=== PATIENT | male | born 1975 | race Caucasian/White ===

== ENCOUNTER 2020-12-29 10:57 | Emergency (ER) | payer MEDICARE, OTHER ==
[2020-12-29 11:09] VITALS: TEMP 97.6
[2020-12-29] MEDS ORDERED: LORazepam 2 MG/ML INJ IV STA ×2 (11:16→12:06)
--- NOTE | 2020-12-29 11:32 | ED ---
General Adult HPI - General Chief complaint: Shortness of Breath Stated complaint: SUREKHA, anxiety Time Seen by Provider: 12/29/20 11:05 Source: patient, family, RN notes reviewed, old records reviewed Mode of arrival: wheelchair - History of Present Illness Initial comments: This is a 45-year-old male who presents emergency Department complaining that he is having an anxiety attack. Patient states he feels like he can't breathe but he knows secondary to having panic attacks. Patient states this started about a year ago and he still going to [facility] but he states there is sick of seeing him so he came here today. Patient doesn't know why he is having panic attacks but he states when he gets like this he feels like he can't breathe site doesn't know what else to do. Patient denies chest pain. Patient denies any recent fever chills or cough per patient denies headache patient denies numbness weakness. Patient denies abdominal pain patient denies nausea vomiting diarrhea. - Related Data Home Medications Medication Instructions Recorded Confirmed Albuterol Inhaler (Mhu) [Ventolin 1 puff INHALATION RT-Q6H PRN 10/31/15 11/04/15 Hfa Inhaler] Doxycycline Hyclate 100 mg PO BID 10/31/15 11/04/15 Hydrocodone/Acetaminophen [[place] 1 tab PO TID 10/31/15 11/04/15 7.5-325] Insulin Lispro [humaLOG] See Protocol SQ ACHS 10/31/15 11/04/15 Methylphenidate HCl [Ritalin LA] 30 mg PO TID 10/31/15 11/04/15 Sulfamethoxazole/Trimethoprim 1 tab PO Q12H 10/31/15 11/04/15 [Bactrim DS 800-160 mg] Previous Rx's Medication Instructions Recorded Hydrocodone/Acetaminophen [Conway 1 - 2 each PO Q6HR PRN #60 tab 11/02/15 5-325] Allergies Allergy/AdvReac Type Severity Reaction Status Date / Time metals Allergy Rash/Hives, Uncoded 12/29/20 11:09 swelling Review of Systems ROS Statement: Those systems with pertinent positive or pertinent negative responses have been documented in the HPI. ROS Other: All systems not noted in ROS Statement are negative. Past Medical History Past Medical History: Asthma, Diabetes Mellitus, GERD/Reflux, Hypertension, Skin Disorder Additional Past Medical History / Comment(s): hx spina bifida, spinal stenosis, pancreatitis. scrotal wound (to start on antibiotics 10/31/15), migraines, uses wheelchair-can ambulate but does fall at times History of Any Multi-Drug Resistant Organisms: None Reported Past Surgical History: Back Surgery Additional Past Surgical History / Comment(s): back surgery- 3 rods, 4 screws Past Anesthesia/Blood Transfusion Reactions: No Reported Reaction Past Psychological History: ADD/ADHD, Bipolar Past Alcohol Use History: None Reported Past Drug Use History: None Reported - Past Family History Mother Family Medical History: Cancer Father Family Medical History: Cancer General Exam - General Exam Comments Initial Comments: GENERAL: Patient is well-developed and well-nourished. Patient is nontoxic and well- hydrated and is in mild distress. ENT: Neck is soft and supple. No significant lymphadenopathy is noted. Oropharynx is clear. Moist mucous membranes. Neck has full range of motion without eliciting any pain. EYES: The sclera were anicteric and conjunctiva were pink and moist. Extraocular movements were intact and pupils were equal round and reactive to light. Eyelids were unremarkable. PULMONARY: Unlabored respirations. Good breath sounds bilaterally. No audible rales rhon chi or wheezing was noted. CARDIOVASCULAR: There is a regular rate and rhythm without any murmurs gallops or rubs. ABDOMEN: Soft and nontender with normal bowel sounds. SKIN: Skin is clear with no lesions or rashes and otherwise unremarkable. NEUROLOGIC: Patient is alert and oriented x3. Cranial nerves II through XII are grossly intact. Motor and sensory are also intact. Normal speech, volume and content. Symmetrical smile. MUSCULOSKELETAL: Normal extremities with adequate strength and full range of motion. LYMPHATICS: No significant lymphadenopathy is noted PSYCHIATRIC: Patient is extremely anxious and hyperventilating. Course Vital Signs 12/29/20 12/29/20 12/29/20 11:03 11:38 12:16 Temperature 97.6 F Pulse Rate 66 62 59 L Respiratory 28 H 30 H 28 H Rate Blood Pressure 147/112 131/112 O2 Sat by Pulse 93 L 94 L 93 L Oximetry 12/29/20 12/29/20 12:44 13:32 Temperature Pulse Rate 67 Respiratory 30 H 20 Rate Blood Pressure 110/97 O2 Sat by Pulse 92 L Oximetry Medical Decision Making - Medical Decision Making EKG shows sinus rhythm with frequent PVCs at 80 bpm NM interval 240 QRS is 86 QT interval 400 QTC is 44. Patient's received 2 mg of Ativan in the emergency department doing much better he feels much close to his baseline. Patient's chest x-ray shows no acute abnormality. Disposition Clinical Impression: Anxiety Disposition: HOME SELF-CARE Instructions (If sedation given, give patient instructions): Anxiety (ED) Is patient prescribed a controlled substance at d/c from ED?: No Referrals: Kunal Hoffmann MD [STAFF PHYSICIAN] - 1-2 days Time of Disposition: 14:00
--- NOTE | 2020-12-29 13:04 | XR ---
EXAMINATION TYPE: XR chest 1V portable DATE OF EXAM: 12/29/2020 COMPARISON: Chest x-ray 12/23/2009 HISTORY: Shortness of breath TECHNIQUE: Single frontal view of the chest is obtained. FINDINGS: There is no focal air space opacity, pleural effusion, or pneumothorax seen. The cardiac silhouette size is large, patient is rotated which may accentuate the appearance. The osseous struc tures are intact. IMPRESSION: Cardiomegaly, rotated exam, follow-up as indicated
[2020-12-29 13:32] VITALS: PULSE 67; RESP 20
[2020-12-29 14:08] VITALS: BP 128/78
== END 2020-12-29 14:00 | disposition home or self-care (01) ==
LOC: EC 10:57
DX: F41.9 Anxiety disorder, unspecified (principal); J45.909 Unspecified asthma, uncomplicated; E11.9 Type 2 diabetes mellitus without complications; K21.9 Gastro-esophageal reflux disease without esophagitis; I10 Essential (primary) hypertension; F90.9 Attention-deficit hyperactivity disorder, unspecified type; F31.9 Bipolar disorder, unspecified; Z79.4 Long term (current) use of insulin
CPT/HCPCS: 99283; 96374; 96376; 93005; 71045; J2060

== ENCOUNTER 2020-12-30 10:25 | Emergency (ER) | payer MEDICARE, OTHER ==
[2020-12-30] MEDS ORDERED: LORazepam 1 MG TAB PO STA (10:49)
[2020-12-30 11:34] LABS: Basophils # (A) 0.1 k/uL (0-0.2); Basophils % (A) 1 %; Eosinophils # (A) 0.1 k/uL (0-0.7); Eosinophils % (A) 1 %; HGB 18.3 gm/dL (13.0-17.5); Lymphocytes # (A) 2.3 k/uL (1.0-4.8); Lymphocytes % (A) 21 %; MCH 29.6 pg (25.0-35.0); MCV 89.9 fL (80.0-100.0); Mean Platelet Volume 7.3; Monocytes # (A) 0.6 k/uL (0-1.0); Monocytes % (A) 5 %; Neutrophils % (A) 71 %; Platelet Count 258 k/uL (150-450); RBC 6.18 m/uL (4.30-5.90); RDW 14.5 % (11.5-15.5); WBC 11.3 k/uL (3.8-10.6)
[2020-12-30] MEDS ORDERED: LORazepam 2 MG/ML INJ IV STA ×2 (11:34→12:53)
--- NOTE | 2020-12-30 11:36 | ED ---
General Adult HPI - General Chief complaint: Psychiatric Symptoms Stated complaint: Anxiety Attack Source: patient Mode of arrival: wheelchair Limitations: physical limitation - History of Present Illness Initial comments: 45-year-old male presents to the emergency department with reported shortness of breath. Patient states that he is having a panic attack. States he's had m ultiple episodes similar in nature which were diagnosed as anxiety. States that he is short of breath. Patient was just seen in the hospital yesterday for similar complaint. He was given Ativan and had improvement in his symptoms. He does admit to a history of COPD. Denies any chest pain. Denies fevers, chills or cough. No lower extremity swelling. Patient requesting medications upon arrival. Denies any cold exposure. States he is covid vaccinated. No other alleviating, Percepting or modifying factors - Related Data Home Medications Medication Instructions Recorded Confirmed Albuterol Inhaler (Mhu) [Ventolin 1 puff INHALATION RT-Q6H PRN 10/31/15 11/04/15 Hfa Inhaler] Doxycycline Hyclate 100 mg PO BID 10/31/15 11/04/15 Hydrocodone/Acetaminophen [[place] 1 tab PO TID 10/31/15 11/04/15 7.5-325] Insulin Lispro [humaLOG] See Protocol SQ ACHS 10/31/15 11/04/15 Methylphenidate HCl [Ritalin LA] 30 mg PO TID 10/31/15 11/04/15 Sulfamethoxazole/Trimethoprim 1 tab PO Q12H 10/31/15 11/04/15 [Bactrim DS 800-160 mg] Previous Rx's Medication Instructions Recorded Hydrocodone/Acetaminophen [Larose 1 - 2 each PO Q6HR PRN #60 tab 11/02/15 5-325] predniSONE [Deltasone] 20 mg PO BID #10 tab 12/30/20 Allergies Allergy/AdvReac Type Severity Reaction Status Date / Time metals Allergy Rash/Hives, Uncoded 12/30/20 10:32 swelling Review of Systems ROS Statement: Those systems with pertinent positive or pertinent negative responses have been documented in the HPI. ROS Other: All systems not noted in ROS Statement are negative. Past Medical History Past Medical History: Asthma, Diabetes Mellitus, GERD/Reflux, Hypertension, Skin Disorder Additional Past Medical History / Comment(s): hx spina bifida, spinal stenosis, pancreatitis. scrotal wound (to start on antibiotics 10/31/15), migraines, uses wheelchair-can ambulate but does fall at times History of Any Multi-Drug Resistant Organisms: None Reported Past Surgical History: Back Surgery Additional Past Surgical History / Comment(s): back surgery- 3 rods, 4 screws Past Anesthesia/Blood Transfusion Reactions: No Reported Reaction Past Psychological History: ADD/ADHD, Bipolar Smoking Status: Current every day smoker Past Alcohol Use History: None Reported Past Drug Use History: None Reported - Past Family History Mother Family Medical History: Cancer Father Family Medical History: Cancer General Exam Limitations: physical limitation Course Vital Signs 12/30/20 12/30/20 12/30/20 10:28 11:51 13:25 Temperature 100.5 F H 98.7 F Pulse Rate 63 97 100 Respiratory 24 16 Rate Blood Pressure 150/50 O2 Sat by Pulse 93 L 93 L Oximetry 12/30/20 12/30/20 13:31 13:38 Temperature Pulse Rate 100 86 Respiratory 16 Rate Blood Pressure 141/83 O2 Sat by Pulse 93 L Oximetry EKG Findings - EKG Comments: EKG Findings:: EKG demonstrates a sinus rhythm with PACs. Rate of 93. OK interval 142. She has 80. QTC of 497. Baseline artifact. No acute ST segment elevations. Medical Decision Making - Medical Decision Making Upon arrival patient is placed into room 12. He is requesting something for anxiety. IV is established. He was given 2 mg of Ativan. I did recommend completing laboratory studies as he does have a history of COPD. Mild temp upon arrival. Laboratory studies are reviewed. Glucose elevated at 224. Troponin is negative. Covid is not detected. Chest x-ray demonstrates no acute cardiopulmonary process. Patient is reevaluated after his Ativan administration. He is much more calm. Temp is rechecked and is normal at 98.7. He continues to saturate 93%. This is checked to the patient's previous visit and saturations are at the patient's previous level. He is resting much more comfortably. Did recommend giving her a breathing treatment and steroids. The patient is a diabetic and therefore recommended that he watch her sugars closely after steroid administration. I recommended that the patient go on a course of steroids over the next 5 days. He does have an albuterol inhaler at home and states that he does have enough of the medication. Instructed to use every 4 hours. Patient needs to follow up with his primary care doctor for further evaluation. Patient is adamant that he wants to leave at this time. He was given written and verbal discharge instructions and discharged home in stable condition - Lab Data Result diagrams: 12/30/20 10:50 12/30/20 10:50 Lab Results 12/30/20 12/30/20 12/30/20 Range/Units 10:50 10:50 10:50 WBC 11.3 H (3.8-10.6) k/uL RBC 6.18 H (4.30-5.90) m/uL Hgb 18.3 H (13.0-17.5) gm/dL Hct 55.5 H (39.0-53.0) % MCV 89.9 (80.0-100.0) fL MCH 29.6 (25.0-35.0) pg MCHC 33.0 (31.0-37.0) g/dL RDW 14.5 (11.5-15.5) % Plt Count 258 (150-450) k/uL MPV 7.3 Neutrophils % 71 % Lymphocytes % 21 % Monocytes % 5 % Eosinophils % 1 % Basophils % 1 % Neutrophils # 8.0 H (1.3-7.7) k/uL Lymphocytes # 2.3 (1.0-4.8) k/uL Monocytes # 0.6 (0-1.0) k/uL Eosinophils # 0.1 (0-0.7) k/uL Basophils # 0.1 (0-0.2) k/uL Sodium 140 (137-145) mmol/L Potassium 4.8 (3.5-5.1) mmol/L Chloride 103 (98-107) mmol/L Carbon Dioxide 29 (22-30) mmol/L Anion Gap 8 mmol/L BUN 30 H (9-20) mg/dL Creatinine 0.77 (0.66-1.25) mg/dL Est GFR (CKD-EPI)AfAm >90 (>60 ml/min/1.73 sqM) Est GFR (CKD-EPI)NonAf >90 (>60 ml/min/1.73 sqM) Glucose 224 H (74-99) mg/dL Plasma Lactic Acid Ashwin 1.7 (0.7-2.0) mmol/L Calcium 10.0 (8.4-10.2) mg/dL Total Bilirubin 0.5 (0.2-1.3) mg/dL AST 19 (17-59) U/L ALT 18 (4-49) U/L Alkaline Phosphatase 114 (38-126) U/L Troponin I (0.000-0.034) ng/mL NT-Pro-B Natriuret Pep pg/mL Total Protein 6.8 (6.3-8.2) g/dL Albumin 3.9 (3.5-5.0) g/dL Coronavirus (PCR) (Not Detectd) 12/30/20 12/30/20 12/30/20 Range/Units 10:50 10:50 10:50 WBC (3.8-10.6) k/uL RBC (4.30-5.90) m/uL Hgb (13.0-17.5) gm/dL Hct (39.0-53.0) % MCV (80.0-100.0) fL MCH (25.0-35.0) pg MCHC (31.0-37.0) g/dL RDW (11.5-15.5) % Plt Count (150-450) k/uL MPV Neutrophils % % Lymphocytes % % Monocytes % % Eosinophils % % Basophils % % Neutrophils # (1.3-7.7) k/uL Lymphocytes # (1.0-4.8) k/uL Monocytes # (0-1.0) k/uL Eosinophils # (0-0.7) k/uL Basophils # (0-0.2) k/uL Sodium (137-145) mmol/L Potassium (3.5-5.1) mmol/L Chloride (98-107) mmol/L Carbon Dioxide (22-30) mmol/L Anion Gap mmol/L BUN (9-20) mg/dL Creatinine (0.66-1.25) mg/dL Est GFR (CKD-EPI)AfAm (>60 ml/min/1.73 sqM) Est GFR (CKD-EPI)NonAf (>60 ml/min/1.73 sqM) Glucose (74-99) mg/dL Plasma Lactic Acid Ashwin (0.7-2.0) mmol/L Calcium (8.4-10.2) mg/dL Total Bilirubin (0.2-1.3) mg/dL AST (17-59) U/L ALT (4-49) U/L Alkaline Phosphatase (38-126) U/L Troponin I <0.012 (0.000-0.034) ng/mL NT-Pro-B Natriuret Pep 614 pg/mL Total Protein (6.3-8.2) g/dL Albumin (3.5-5.0) g/dL Coronavirus (PCR) Not Detected (Not Detectd) Disposition Clinical Impression: Dyspnea, COPD (chronic obstructive pulmonary disease) Disposition: HOME SELF-CARE Condition: Stable Instructions (If sedation given, give patient instructions): Shortness of Breath (ED) Additional Instructions: I recommend you take the steroid for your breathing and use your albuterol inhaler every 4 hours. Check your sugars closely because they can be higher while on the steroids. Follow up with your doctor in 2-4 days. Return to the ED for any new or worsening symptoms. Prescriptions: predniSONE [Deltasone] 20 mg PO BID #10 tab Is patient prescribed a controlled substance at d/c from ED?: No Referrals: None,Stated [Primary Care Provider] - 1-2 days Time of Disposition: 12:59
[2020-12-30 11:47] LABS: ALT 18 U/L (4-49); AST 19 U/L (17-59); African American GFR (CKD) >90 (>60 ml/min/1.73 sqM); Albumin 3.9 g/dL (3.5-5.0); Alkaline Phosphatase 114 U/L (38-126); Anion Gap 8 mmol/L; Blood Urea Nitrogen 30 mg/dL (9-20); Carbon Dioxide 29 mmol/L (22-30); Chloride 103 mmol/L (98-107); Glucose 224 mg/dL (74-99); Non-African American GFR(CKD) >90 (>60 ml/min/1.73 sqM); Potassium 4.8 mmol/L (3.5-5.1); Sodium 140 mmol/L (137-145); Total Bilirubin 0.5 mg/dL (0.2-1.3); Total Protein 6.8 g/dL (6.3-8.2)
[2020-12-30 11:58] VITALS: RESP 16; TEMP 98.7
--- NOTE | 2020-12-30 12:09 | XR ---
EXAMINATION TYPE: XR chest 2V DATE OF EXAM: 12/30/2020 COMPARISON: Chest x-ray 12/29/2020 HISTORY: Difficulty breathing TECHNIQUE: Frontal and lateral views of the chest are obtained. FINDINGS: There is no focal air space opacity, pleural effusion, or pneumothorax seen. The cardiac silhouette size is within normal limits. The osseous structures are intact. IMPRESSION: No acute cardiopulmonary process.
[2020-12-30 12:10] LABS: HCT 55.5 % (39.0-53.0)
[2020-12-30] MEDS ORDERED: IPRATROPIUM-ALBUTEROL 3 ML NEB INHALATION STA (12:53)
[2020-12-30] MEDS ORDERED: methylPREDNISolone SOD SUCCI 125 MG/2 ML VIAL IV STA (12:54)
[2020-12-30 13:40] VITALS: BP 141/83; PULSE 86
== END 2020-12-30 13:40 | disposition home or self-care (01) ==
LOC: EC 10:25
DX: J44.9 Chronic obstructive pulmonary disease, unspecified (principal); E11.9 Type 2 diabetes mellitus without complications; K21.9 Gastro-esophageal reflux disease without esophagitis; I10 Essential (primary) hypertension; F90.9 Attention-deficit hyperactivity disorder, unspecified type; F31.9 Bipolar disorder, unspecified; F17.200 Nicotine dependence, unspecified, uncomplicated; Z20.822 Contact with and (suspected) exposure to COVID-19; Z79.4 Long term (current) use of insulin
CPT/HCPCS: 99285; 96374; 96375; 96376; 36415; 94640; 93005; 83880; 80053; 83605; 84484; 85025; 87635; 71046; J2060; J2930

== ENCOUNTER 2020-12-31 09:35 | Emergency (ER) | payer MEDICARE, OTHER ==
[2020-12-31] MEDS ORDERED: SODIUM CHLORIDE 0.9% 500 ML 500 ML IV STA (10:03)
[2020-12-31] MEDS ORDERED: LORazepam 2 MG/ML INJ IV STA ×2 (10:03→11:53)
[2020-12-31] MEDS ORDERED: IPRATROPIUM-ALBUTEROL 3 ML NEB INHALATION STA (10:17)
[2020-12-31] MEDS ORDERED: ALBUTEROL NEBULIZED 2.5 MG/3 ML INHALATION STA (10:17)
--- NOTE | 2020-12-31 10:35 | ED ---
General Adult HPI - General Chief complaint: Anxiety Stated complaint: Revisit/Anxiety Time Seen by Provider: 12/31/20 09:51 Source: patient, RN notes reviewed, old records reviewed Mode of arrival: ambulatory Limitations: altered mental status - History of Present Illness Initial comments: 45-year-old male presenting with chief complaint of dyspnea. Patient states he has anxiety attacks and becomes very short of breath. The history is limited. Patient is very tachypneic and having breath-holding spells. He denies central chest pain. Denies fever. - Related Data Home Medications Medication Instructions Recorded Confirmed Albuterol Sulfate [Ventolin HFA] 1 - 2 puff INHALATION RT-QID PRN 12/31/20 12/31/20 Atorvastatin Calcium [Lipitor] 20 mg PO DAILY 12/31/20 12/31/20 Budesonide/Formoterol Fumarate 2 puff INHALATION RT-BID 12/31/20 12/31/20 [Symbicort 160-4.5 Mcg Inhaler] Cholecalciferol (Vitamin D3) 125 mcg PO DAILY 12/31/20 12/31/20 [Vitamin D3 (125 MCG = 5,000 IU)] Empagliflozin [Jardiance] 25 mg PO DAILY 12/31/20 12/31/20 Insulin Regular, Human [humulin R 25 unit SQ AC-SUPPER 12/31/20 12/31/20 U-500 Kwikpen] Insulin Regular, Human [humulin R 60 unit SQ AC-BRKFST 12/31/20 12/31/20 U-500 Kwikpen] [place] Carbonate 600 mg PO DAILY@1200 12/31/20 12/31/20 Montelukast [Singulair] 10 mg PO HS 12/31/20 12/31/20 Omeprazole 20 mg PO DAILY 12/31/20 12/31/20 Pioglitazone [Actos] 30 mg PO DAILY 12/31/20 12/31/20 QUEtiapine FUMARATE [SEROquel] 200 mg PO HS 12/31/20 12/31/20 QUEtiapine [SEROquel] 25 mg PO TID 12/31/20 12/31/20 lisinopriL 20 mg PO DAILY 12/31/20 12/31/20 metFORMIN HCL [Glucophage] 1,000 mg PO BID 12/31/20 12/31/20 Previous Rx's Medication Instructions Recorded predniSONE [Deltasone] 20 mg PO BID #10 tab 12/30/20 Allergies Allergy/AdvReac Type Severity Reaction Status Date / Time metals Allergy Rash/Hives, Uncoded 12/31/20 11:47 swelling Review of Systems ROS Statement: Those systems with pertinent positive or pertinent negative responses have been documented in the HPI. ROS Other: All systems not noted in ROS Statement are negative. Past Medical History Past Medical History: Asthma, Diabetes Mellitus, GERD/Reflux, Hypertension, Skin Disorder Additional Past Medical History / Comment(s): hx spina bifida, spinal stenosis, pancreatitis. scrotal wound (to start on antibiotics 10/31/15), migraines, uses wheelchair-can ambulate but does fall at times History of Any Multi-Drug Resistant Organisms: None Reported Past Surgical History: Back Surgery Additional Past Surgical History / Comment(s): back surgery- 3 rods, 4 screws Past Anesthesia/Blood Transfusion Reactions: No Reported Reaction Past Psychological History: ADD/ADHD, Bipolar Smoking Status: Current every day smoker Past Alcohol Use History: None Reported Past Drug Use History: None Reported - Past Family History Mother Family Medical History: Cancer Father Family Medical History: Cancer General Exam Limitations: altered mental status General appearance: alert, anxious Head exam: Present: atraumatic, normocephalic Eye exam: Present: normal appearance, PERRL Respiratory exam: Present: respiratory distress (tachypnic with erratic breathing), decreased breath sounds Cardiovascular Exam: Present: regular rate, normal rhythm GI/Abdominal exam: Present: soft. Absent: distended, tenderness, guarding Extremities exam: Present: normal capillary refill Neurological exam: Present: alert Psychiatric exam: Present: anxious Skin exam: Present: diaphoretic Course Vital Signs 12/31/20 12/31/20 12/31/20 09:39 11:00 11:18 Temperature 98.7 F Pulse Rate 62 92 80 Respiratory 22 Rate Blood Pressure 166/77 O2 Sat by Pulse 96 Oximetry 12/31/20 11:34 Temperature Pulse Rate 90 Respiratory 20 Rate Blood Pressure 135/119 O2 Sat by Pulse 95 Oximetry EKG Findings - EKG Comments: EKG Findings:: EKG: Sinus rhythm with PVC, rate of 90, IL interval 140, QRS duration 82, QTC 469 frequent PVC. Medical Decision Making - Medical Decision Making 45-year-old male dyspnea and anxiety. Patient appears very anxious. He has erratic breathing but has good air entry and is not hypoxic. He has a CBC showing leukocytosis and is currently on steroids. He has a stable hemoglobin, normal electrolytes, elevated blood sugar. His troponin and d-dimer are negative. His chest x-ray is clear. He should continue this treatment for asthma and COPD that he is currently prescribed. He should follow-up with his doctor regarding his anxiety. - Lab Data Result diagrams: 12/31/20 10:11 12/31/20 10:11 Lab Results 12/31/20 12/31/20 12/31/20 Range/Units 10:11 10:11 10:11 WBC 16.3 H (3.8-10.6) k/uL RBC 6.04 H (4.30-5.90) m/uL Hgb 18.3 H (13.0-17.5) gm/dL Hct 54.6 H (39.0-53.0) % MCV 90.3 (80.0-100.0) fL MCH 30.3 (25.0-35.0) pg MCHC 33.5 (31.0-37.0) g/dL RDW 14.4 (11.5-15.5) % Plt Count 280 (150-450) k/uL MPV 7.7 Neutrophils % 90 % Lymphocytes % 5 % Monocytes % 5 % Eosinophils % 1 % Basophils % 0 % Neutrophils # 14.6 H (1.3-7.7) k/uL Lymphocytes # 0.8 L (1.0-4.8) k/uL Monocytes # 0.8 (0-1.0) k/uL Eosinophils # 0.1 (0-0.7) k/uL Basophils # 0.0 (0-0.2) k/uL PT 10.8 (9.0-12.0) sec INR 1.0 (<1.2) APTT 22.7 (22.0-30.0) sec D-Dimer <0.17 (<0.60) mg/L FEU Sodium 140 (137-145) mmol/L Potassium 4.6 (3.5-5.1) mmol/L Chloride 101 (98-107) mmol/L Carbon Dioxide 25 (22-30) mmol/L Anion Gap 14 mmol/L BUN 29 H (9-20) mg/dL Creatinine 0.77 (0.66-1.25) mg/dL Est GFR (CKD-EPI)AfAm >90 (>60 ml/min/1.73 sqM) Est GFR (CKD-EPI)NonAf >90 (>60 ml/min/1.73 sqM) Glucose 287 H (74-99) mg/dL Calcium 10.2 (8.4-10.2) mg/dL Total Bilirubin 0.6 (0.2-1.3) mg/dL AST 18 (17-59) U/L ALT 21 (4-49) U/L Alkaline Phosphatase 113 (38-126) U/L Troponin I (0.000-0.034) ng/mL Total Protein 7.7 (6.3-8.2) g/dL Albumin 4.6 (3.5-5.0) g/dL 12/31/20 Range/Units 10:11 WBC (3.8-10.6) k/uL RBC (4.30-5.90) m/uL Hgb (13.0-17.5) gm/dL Hct (39.0-53.0) % MCV (80.0-100.0) fL MCH (25.0-35.0) pg MCHC (31.0-37.0) g/dL RDW (11.5-15.5) % Plt Count (150-450) k/uL MPV Neutrophils % % Lymphocytes % % Monocytes % % Eosinophils % % Basophils % % Neutrophils # (1.3-7.7) k/uL Lymphocytes # (1.0-4.8) k/uL Monocytes # (0-1.0) k/uL Eosinophils # (0-0.7) k/uL Basophils # (0-0.2) k/uL PT (9.0-12.0) sec INR (<1.2) APTT (22.0-30.0) sec D-Dimer (<0.60) mg/L FEU Sodium (137-145) mmol/L Potassium (3.5-5.1) mmol/L Chloride (98-107) mmol/L Carbon Dioxide (22-30) mmol/L Anion Gap mmol/L BUN (9-20) mg/dL Creatinine (0.66-1.25) mg/dL Est GFR (CKD-EPI)AfAm (>60 ml/min/1.73 sqM) Est GFR (CKD-EPI)NonAf (>60 ml/min/1.73 sqM) Glucose (74-99) mg/dL Calcium (8.4-10.2) mg/dL Total Bilirubin (0.2-1.3) mg/dL AST (17-59) U/L ALT (4-49) U/L Alkaline Phosphatase (38-126) U/L Troponin I <0.012 (0.000-0.034) ng/mL Total Protein (6.3-8.2) g/dL Albumin (3.5-5.0) g/dL Disposition Clinical Impression: Dyspnea, Anxiety Disposition: HOME SELF-CARE Condition: Good Instructions (If sedation given, give patient instructions): Generalized Anxiety Disorder (ED) Is patient prescribed a controlled substance at d/c from ED?: No Referrals: None,Stated [Primary Care Provider] - 1-2 days Jose Chowdary MD [REFERRING] - 1-2 days Lul Cardona [STAFF PHYSICIAN] - 1-2 days Time of Disposition: 12:23
[2020-12-31 10:36] LABS: ALT 21 U/L (4-49); AST 18 U/L (17-59); African American GFR (CKD) >90 (>60 ml/min/1.73 sqM); Albumin 4.6 g/dL (3.5-5.0); Alkaline Phosphatase 113 U/L (38-126); Anion Gap 14 mmol/L; Blood Urea Nitrogen 29 mg/dL (9-20); Calcium 10.2 mg/dL (8.4-10.2); Carbon Dioxide 25 mmol/L (22-30); Chloride 101 mmol/L (98-107); Glucose 287 mg/dL (74-99); Non-African American GFR(CKD) >90 (>60 ml/min/1.73 sqM); Potassium 4.6 mmol/L (3.5-5.1); Sodium 140 mmol/L (137-145); Total Bilirubin 0.6 mg/dL (0.2-1.3); Total Protein 7.7 g/dL (6.3-8.2)
--- NOTE | 2020-12-31 10:46 | XR ---
EXAMINATION TYPE: XR chest 1V portable DATE OF EXAM: 12/31/2020 COMPARISON: Chest x-ray 12/30/2020 HISTORY: Difficulty breathing TECHNIQUE: frontal view of the chest is obtained on 2 images. FINDINGS: There is no focal air space opacity, pleural effusion, or pneumothorax seen. The cardiac silhouette size is within normal limits. Patient is rotated, one of the 2 x-rays appears more expirat ory. There are overlying leads. The osseous structures are intact. IMPRESSION: No acute process.
[2020-12-31 10:50] LABS: Basophils % (A) 0 %; Eosinophils # (A) 0.1 k/uL (0-0.7); Eosinophils % (A) 1 %; HCT 54.6 % (39.0-53.0); HGB 18.3 gm/dL (13.0-17.5); Lymphocytes # (A) 0.8 k/uL (1.0-4.8); Lymphocytes % (A) 5 %; MCH 30.3 pg (25.0-35.0); MCHC 33.5 g/dL (31.0-37.0); MCV 90.3 fL (80.0-100.0); Mean Platelet Volume 7.7; Monocytes # (A) 0.8 k/uL (0-1.0); Monocytes % (A) 5 %; Neutrophils # (A) 14.6 k/uL (1.3-7.7); Neutrophils % (A) 90 %; Platelet Count 280 k/uL (150-450); RBC 6.04 m/uL (4.30-5.90); RDW 14.4 % (11.5-15.5); WBC 16.3 k/uL (3.8-10.6)
[2020-12-31 11:14] LABS: Partial Thromboplastin Time 22.7 sec (22.0-30.0); Prothrombin Time 10.8 sec (9.0-12.0)
[2020-12-31 11:40] VITALS: RESP 20
[2020-12-31 12:36] VITALS: BP 103/88; PULSE 87; TEMP 98
== END 2020-12-31 12:35 | disposition home or self-care (01) ==
LOC: EC 09:35
DX: R06.02 Shortness of breath (principal); F41.9 Anxiety disorder, unspecified; J45.909 Unspecified asthma, uncomplicated; E11.9 Type 2 diabetes mellitus without complications; K21.9 Gastro-esophageal reflux disease without esophagitis; I10 Essential (primary) hypertension; F90.9 Attention-deficit hyperactivity disorder, unspecified type; F31.9 Bipolar disorder, unspecified; F17.200 Nicotine dependence, unspecified, uncomplicated; Z79.4 Long term (current) use of insulin; Z79.899 Other long term (current) drug therapy
CPT/HCPCS: 99285; 96374; 96376; 96361 ×2; 36415; 94640; 93005; 85379; 80053; 84484; 85025; 85610; 85730; 71045; J2060

== ENCOUNTER 2021-01-02 13:50 | Emergency (ER) | payer MEDICARE, OTHER ==
[2021-01-02] MEDS ORDERED: LORazepam 2 MG/ML INJ IM STA (14:22)
[2021-01-02] MEDS ORDERED: LORazepam 2 MG/ML INJ IV STA (15:03)
[2021-01-02 15:26] VITALS: BP 140/70; PULSE 84; RESP 20; TEMP 99.1
--- NOTE | 2021-01-02 15:38 | ED ---
Anxiety HPI - General Chief Complaint: Anxiety Stated Complaint: Anxiety Time Seen by Provider: 01/02/21 14:18 Source: patient, RN notes reviewed Mode of arrival: ambulatory - History of Present Illness Initial Comments: Patient is a 45-year-old male that presents to the emergency department complaining of anxiety. He notes that he used to go to [facility] but reports that he went there so much that they started waiting longer to get him into a room. Patient was otherwise well-appearing. He is been to his ER 4 times in the last 6 days. He notes that Ativan helps. He notes that he does not have a primary care but has a follow-up with Dr. Donovan tomorrow. She denied any chest pain short of breath headache nausea vomiting diarrhea constipation fever fatigue chills. - Related Data Home Medications: Home Medications Medication Instructions Recorded Confirmed Albuterol Sulfate [Ventolin HFA] 1 - 2 puff INHALATION RT-QID PRN 12/31/20 12/31/20 Atorvastatin Calcium [Lipitor] 20 mg PO DAILY 12/31/20 12/31/20 Budesonide/Formoterol Fumarate 2 puff INHALATION RT-BID 12/31/20 12/31/20 [Symbicort 160-4.5 Mcg Inhaler] Cholecalciferol (Vitamin D3) 125 mcg PO DAILY 12/31/20 12/31/20 [Vitamin D3 (125 MCG = 5,000 IU)] Empagliflozin [Jardiance] 25 mg PO DAILY 12/31/20 12/31/20 Insulin Regular, Human [humulin R 25 unit SQ AC-SUPPER 12/31/20 12/31/20 U-500 Kwikpen] Insulin Regular, Human [humulin R 60 unit SQ AC-BRKFST 12/31/20 12/31/20 U-500 Kwikpen] [place] Carbonate 600 mg PO DAILY@1200 12/31/20 12/31/20 Montelukast [Singulair] 10 mg PO HS 12/31/20 12/31/20 Omeprazole 20 mg PO DAILY 12/31/20 12/31/20 Pioglitazone [Actos] 30 mg PO DAILY 12/31/20 12/31/20 QUEtiapine FUMARATE [SEROquel] 200 mg PO HS 12/31/20 12/31/20 QUEtiapine [SEROquel] 25 mg PO TID 12/31/20 12/31/20 lisinopriL 20 mg PO DAILY 12/31/20 12/31/20 metFORMIN HCL [Glucophage] 1,000 mg PO BID 12/31/20 12/31/20 Previous Rx's Medication Instructions Recorded predniSONE [Deltasone] 20 mg PO BID #10 tab 12/30/20 Allergies/Adverse Reactions: Allergies Allergy/AdvReac Type Severity Reaction Status Date / Time metals Allergy Rash/Hives, Uncoded 12/31/20 11:47 swelling Review of Systems ROS Statement: Those systems with pertinent positive or pertinent negative responses have been documented in the HPI. ROS Other: All systems not noted in ROS Statement are negative. Past Medical History Past Medical History: Asthma, Diabetes Mellitus, GERD/Reflux, Hypertension, Skin Disorder Additional Past Medical History / Comment(s): hx spina bifida, spinal stenosis, pancreatitis. scrotal wound (to start on antibiotics 10/31/15), migraines, uses wheelchair-can ambulate but does fall at times History of Any Multi-Drug Resistant Organisms: None Reported Past Surgical History: Back Surgery Additional Past Surgical History / Comment(s): back surgery- 3 rods, 4 screws Past Anesthesia/Blood Transfusion Reactions: No Reported Reaction Past Psychological History: ADD/ADHD, Bipolar Smoking Status: Current every day smoker Past Alcohol Use History: None Reported Past Drug Use History: None Reported - Past Family History Mother Family Medical History: Cancer Father Family Medical History: Cancer General Exam Limitations: no limitations General appearance: alert, in no apparent distress, obese Head exam: Present: atraumatic, normocephalic, normal inspection Eye exam: Present: normal appearance, PERRL, EOMI. Absent: scleral icterus, conjunctival injection, periorbital swelling ENT exam: Present: normal exam, mucous membranes moist Neck exam: Present: normal inspection. Absent: tenderness, meningismus, lymphadenopathy Respiratory exam: Present: normal lung sounds bilaterally. Absent: respiratory distress, wheezes, rales, rhonchi, stridor Cardiovascular Exam: Present: regular rate, normal rhythm, normal heart sounds. Absent: systolic murmur, diastolic murmur, rubs, gallop, clicks Extremities exam: Present: normal inspection, full ROM, normal capillary refill. Absent: tenderness, pedal edema, joint swelling, calf tenderness Back exam: Present: normal inspection Neurological exam: Present: alert, oriented X3 Psychiatric exam: Present: normal affect, normal mood Course Vital Signs 01/02/21 01/02/21 14:09 15:25 Temperature 98.1 F 99.1 F Pulse Rate 99 84 Respiratory 22 20 Rate Blood Pressure 155/66 140/70 O2 Sat by Pulse 95 96 Oximetry Medical Decision Making - Medical Decision Making 45-year-old male with an anxiety attack. 2 mg Ativan IM ordered. Patient still complaining of anxiety type symptoms, 1 mg of Ativan IV ordered. Case discussed with Dr. Hanson, patient can discharge home. Primary care. Disposition Clinical Impression: Anxiety Disposition: HOME SELF-CARE Condition: Stable Instructions (If sedation given, give patient instructions): Generalized Anxiety Disorder (ED) Additional Instructions: Please return to the Emergency Department if symptoms worsen or any other concerns. It is pertinent that you establish and follow up primary care to get on a regularly prescribed anxiety medication. Follow-up with doctors as intended. Is patient prescribed a controlled substance at d/c from ED?: No Referrals: None,Stated [Primary Care Provider] - 1-2 days Time of Disposition: 15:38
== END 2021-01-02 15:56 | disposition home or self-care (01) ==
LOC: EC 13:50
DX: F41.9 Anxiety disorder, unspecified (principal); E11.9 Type 2 diabetes mellitus without complications; I10 Essential (primary) hypertension; J45.909 Unspecified asthma, uncomplicated; K21.9 Gastro-esophageal reflux disease without esophagitis; F17.200 Nicotine dependence, unspecified, uncomplicated; E66.9 Obesity, unspecified; Z79.4 Long term (current) use of insulin; Z79.51 Long term (current) use of inhaled steroids; Z79.52 Long term (current) use of systemic steroids; Z79.899 Other long term (current) drug therapy; Z68.38 Body mass index [BMI] 38.0-38.9, adult
CPT/HCPCS: 96374; 96372; 99283; J2060

== ENCOUNTER 2021-01-03 09:23 | Emergency (ER) | payer MEDICARE, OTHER ==
[2021-01-03 09:32] VITALS: TEMP 97.1
[2021-01-03] MEDS ORDERED: LORazepam 2 MG/ML INJ IV STA ×2 (09:34→10:42)
[2021-01-03 11:48] VITALS: BP 129/105; PULSE 71; RESP 24
--- NOTE | 2021-01-03 12:11 | ED ---
Anxiety HPI - General Chief Complaint: Anxiety Stated Complaint: anxiety Time Seen by Provider: 01/03/21 09:32 Source: patient, RN notes reviewed Mode of arrival: ambulatory - History of Present Illness Initial Comments: Patient is a 45-year-old male that presents emergency department complaining of anxiety attack. He notes that he has come in for times in the last several day s. For the same exact complaint. He notes that he's awake here on but was turned away due to going there so often and freely. Patient denied any other new issues or complaints at this time. He was well-appearing. He denied chest pain first breath headache nausea vomiting diarrhea constipation fever fatigue chills. - Related Data Home Medications: Home Medications Medication Instructions Recorded Confirmed Albuterol Sulfate [Ventolin HFA] 1 - 2 puff INHALATION RT-QID PRN 12/31/20 01/03/21 Atorvastatin Calcium [Lipitor] 20 mg PO DAILY 12/31/20 01/03/21 Budesonide/Formoterol Fumarate 2 puff INHALATION RT-BID 12/31/20 01/03/21 [Symbicort 160-4.5 Mcg Inhaler] Cholecalciferol (Vitamin D3) 125 mcg PO DAILY 12/31/20 01/03/21 [Vitamin D3 (125 MCG = 5,000 IU)] Empagliflozin [Jardiance] 25 mg PO DAILY 12/31/20 01/03/21 Insulin Regular, Human [humulin R 25 unit SQ AC-SUPPER 12/31/20 01/03/21 U-500 Kwikpen] Insulin Regular, Human [humulin R 60 unit SQ AC-BRKFST 12/31/20 01/03/21 U-500 Kwikpen] [place] Carbonate 600 mg PO DAILY@1200 12/31/20 01/03/21 Montelukast [Singulair] 10 mg PO HS 12/31/20 01/03/21 Omeprazole 20 mg PO DAILY 12/31/20 01/03/21 Pioglitazone [Actos] 30 mg PO DAILY 12/31/20 01/03/21 QUEtiapine FUMARATE [SEROquel] 200 mg PO HS 12/31/20 01/03/21 QUEtiapine [SEROquel] 25 mg PO TID 12/31/20 01/03/21 lisinopriL 20 mg PO DAILY 12/31/20 01/03/21 metFORMIN HCL [Glucophage] 1,000 mg PO BID 12/31/20 01/03/21 Previous Rx's Medication Instructions Recorded predniSONE [Deltasone] 20 mg PO BID #10 tab 12/30/20 Allergies/Adverse Reactions: Allergies Allergy/AdvReac Type Severity Reaction Status Date / Time metals Allergy Rash/Hives, Uncoded 01/03/21 10:51 swelling Review of Systems ROS Statement: Those systems with pertinent positive or pertinent negative responses have been documented in the HPI. ROS Other: All systems not noted in ROS Statement are negative. Past Medical History Past Medical History: Asthma, Diabetes Mellitus, GERD/Reflux, Hypertension, Skin Disorder Additional Past Medical History / Comment(s): hx spina bifida, spinal stenosis, pancreatitis. scrotal wound (to start on antibiotics 10/31/15), migraines, uses wheelchair-can ambulate but does fall at times History of Any Multi-Drug Resistant Organisms: None Reported Past Surgical History: Back Surgery Additional Past Surgical History / Comment(s): back surgery- 3 rods, 4 screws Past Anesthesia/Blood Transfusion Reactions: No Reported Reaction Past Psychological History: ADD/ADHD, Bipolar Smoking Status: Current every day smoker Past Alcohol Use History: None Reported Past Drug Use History: None Reported - Past Family History Mother Family Medical History: Cancer Father Family Medical History: Cancer General Exam Limitations: no limitations General appearance: alert, in no apparent distress, obese Head exam: Present: atraumatic, normocephalic, normal inspection Eye exam: Present: normal appearance, PERRL, EOMI. Absent: scleral icterus, conjunctival injection, periorbital swelling ENT exam: Present: normal exam, mucous membranes moist Neck exam: Present: normal inspection. Absent: tenderness, meningismus, lymphadenopathy Respiratory exam: Present: normal lung sounds bilaterally. Absent: respiratory distress, wheezes, rales, rhonchi, stridor Cardiovascular Exam: Present: regular rate, normal rhythm, normal heart sounds. Absent: systolic murmur, diastolic murmur, rubs, gallop, clicks GI/Abdominal exam: Present: soft, normal bowel sounds. Absent: distended, tenderness, guarding, rebound, rigid Extremities exam: Present: normal inspection, full ROM, normal capillary refill. Absent: tenderness, pedal edema, joint swelling, calf tenderness Neurological exam: Present: alert, oriented X3 Psychiatric exam: Present: normal affect, normal mood, anxious Skin exam: Present: warm, dry, intact, normal color. Absent: rash Course Vital Signs 01/03/21 01/03/21 01/03/21 09:25 09:35 11:47 Temperature 97.1 F L Pulse Rate 68 99 71 Respiratory 32 H 28 H 24 Rate Blood Pressure 68/37 129/105 O2 Sat by Pulse 95 95 94 L Oximetry Medical Decision Making - Medical Decision Making 45-year-old male with anxiety attack. Frequents the ER. 2 mg of Ativan IV ordered. Upon evaluation patient states that he is feeling moderately better but still anxious. 1 more milligram Ativan ordered. A she is legal guardian was attempted to be contacted for several occasions throughout the morning with no answer. Patient was informed that he needs to contact his legal guardian and establish primary care to get a long-term anxiety medication. Case discussed with Dr. Stallworth, patient discharge home. Disposition Clinical Impression: Anxiety Disposition: HOME SELF-CARE Condition: Stable Instructions (If sedation given, give patient instructions): Generalized Anxiety Disorder (ED) Additional Instructions: Please return to the Emergency Department if symptoms worsen or any other concerns. Contact her legal guardian to help set up a primary care physician for long-term management of anxiety. Is patient prescribed a controlled substance at d/c from ED?: No Referrals: None,Stated [Primary Care Provider] - 1-2 days Time of Disposition: 12:10
== END 2021-01-03 12:25 | disposition home or self-care (01) ==
LOC: EC 09:23
DX: F41.9 Anxiety disorder, unspecified (principal); E11.9 Type 2 diabetes mellitus without complications; I10 Essential (primary) hypertension; J45.909 Unspecified asthma, uncomplicated; K21.9 Gastro-esophageal reflux disease without esophagitis; F31.9 Bipolar disorder, unspecified; E66.9 Obesity, unspecified; F17.200 Nicotine dependence, unspecified, uncomplicated; Z79.4 Long term (current) use of insulin; Z79.51 Long term (current) use of inhaled steroids; Z79.52 Long term (current) use of systemic steroids; Z79.899 Other long term (current) drug therapy; Z68.38 Body mass index [BMI] 38.0-38.9, adult
CPT/HCPCS: 96374; 96376; 99283; J2060

== ENCOUNTER 2021-01-06 12:45 | Emergency (ER) | payer MEDICARE, OTHER ==
[2021-01-06 13:03] VITALS: BP 127/76; PULSE 76; RESP 28; TEMP 98.5
--- NOTE | 2021-01-06 13:12 | ED ---
General Adult HPI - General Chief complaint: Anxiety Stated complaint: Anxiety attack Time Seen by Provider: 01/06/21 13:00 Source: patient, RN notes reviewed, old records reviewed Mode of arrival: wheelchair Limitations: no limitations - History of Present Illness Initial comments: This is a 45-year-old male who presents emergency Department stating he is anxious. Patient states his been a chronic ongoing problem. Patient states he normally went to [facility] but they told him to quit going there so he decided to come here. Patient's been here 6 times including today since December 29. Patient denies any physical complaints today. Patient denies any fever chills or cough per patient denies chest pain or palpitations. Patient states he does feel like he short of breath is why takes deep breaths all the time. Patient denies any abdominal pain patient denies nausea vomiting diarrhea. - Related Data Home Medications Medication Instructions Recorded Confirmed Albuterol Sulfate [Ventolin HFA] 1 - 2 puff INHALATION RT-QID PRN 12/31/20 01/03/21 Atorvastatin Calcium [Lipitor] 20 mg PO DAILY 12/31/20 01/03/21 Budesonide/Formoterol Fumarate 2 puff INHALATION RT-BID 12/31/20 01/03/21 [Symbicort 160-4.5 Mcg Inhaler] Cholecalciferol (Vitamin D3) 125 mcg PO DAILY 12/31/20 01/03/21 [Vitamin D3 (125 MCG = 5,000 IU)] Empagliflozin [Jardiance] 25 mg PO DAILY 12/31/20 01/03/21 Insulin Regular, Human [humulin R 25 unit SQ AC-SUPPER 12/31/20 01/03/21 U-500 Kwikpen] Insulin Regular, Human [humulin R 60 unit SQ AC-BRKFST 12/31/20 01/03/21 U-500 Kwikpen] [place] Carbonate 600 mg PO DAILY@1200 12/31/20 01/03/21 Montelukast [Singulair] 10 mg PO HS 12/31/20 01/03/21 Omeprazole 20 mg PO DAILY 12/31/20 01/03/21 Pioglitazone [Actos] 30 mg PO DAILY 12/31/20 01/03/21 QUEtiapine FUMARATE [SEROquel] 200 mg PO HS 12/31/20 01/03/21 QUEtiapine [SEROquel] 25 mg PO TID 12/31/20 01/03/21 lisinopriL 20 mg PO DAILY 12/31/20 01/03/21 metFORMIN HCL [Glucophage] 1,000 mg PO BID 12/31/20 01/03/21 Previous Rx's Medication Instructions Recorded predniSONE [Deltasone] 20 mg PO BID #10 tab 12/30/20 Allergies Allergy/AdvReac Type Severity Reaction Status Date / Time metals Allergy Rash/Hives, Uncoded 01/06/21 13:03 swelling Review of Systems ROS Statement: Those systems with pertinent positive or pertinent negative responses have been documented in the HPI. ROS Other: All systems not noted in ROS Statement are negative. Past Medical History Past Medical History: Asthma, Diabetes Mellitus, GERD/Reflux, Hypertension, Skin Disorder Additional Past Medical History / Comment(s): hx spina bifida, spinal stenosis, pancreatitis. scrotal wound (to start on antibiotics 10/31/15), migraines, uses wheelchair-can ambulate but does fall at times History of Any Multi-Drug Resistant Organisms: None Reported Past Surgical History: Back Surgery Additional Past Surgical History / Comment(s): back surgery- 3 rods, 4 screws Past Anesthesia/Blood Transfusion Reactions: No Reported Reaction Past Psychological History: ADD/ADHD, Bipolar Smoking Status: Current every day smoker Past Alcohol Use History: None Reported Past Drug Use History: None Reported - Past Family History Mother Family Medical History: Cancer Father Family Medical History: Cancer General Exam - General Exam Comments Initial Comments: GENERAL: Patient is well-developed and well-nourished. Patient is nontoxic and well- hydrated and is in mild distress. ENT: Neck is soft and supple. No significant lymphadenopathy is noted. Oropharynx is clear. Moist mucous membranes. Neck has full range of motion without eliciting any pain. EYES: The sclera were anicteric and conjunctiva were pink and moist. Extraocular movements were intact and pupils were equal round and reactive to light. Eyelids were unremarkable. PULMONARY: Patient's lungs are clear. Breathing they're very peculiar way holding his breath with every breath that he takes them letting it go through his nose. CARDIOVASCULAR: There is a regular rate and rhythm without any murmurs gallops or rubs. ABDOMEN: Soft and nontender with normal bowel sounds. SKIN: Skin is clear with no lesions or rashes and otherwise unremarkable. NEUROLOGIC: Patient is alert and oriented x3. Cranial nerves II through XII are grossly intact. Motor and sensory are also intact. Normal speech, volume and content. Symmetrical smile. MUSCULOSKELETAL: Normal extremities with adequate strength and full range of motion. LYMPHATICS: No significant lymphadenopathy is noted PSYCHIATRIC: Patient seems very anxious Limitations: no limitations Course Vital Signs 01/06/21 12:59 Temperature 98.5 F Pulse Rate 76 Respiratory 28 H Rate Blood Pressure 127/76 O2 Sat by Pulse 99 Oximetry Medical Decision Making - Medical Decision Making EPS evaluated the patient and talked with the guardian and they have a plan for the patient Patient will be discharged home in the care of his mother Disposition Clinical Impression: Anxiety Disposition: HOME SELF-CARE Instructions (If sedation given, give patient instructions): Generalized Anxiet y Disorder (ED) Is patient prescribed a controlled substance at d/c from ED?: No Referrals: None,Stated [Primary Care Provider] - 1-2 days Time of Disposition: 14:20
== END 2021-01-06 14:39 | disposition home or self-care (01) ==
LOC: EC 12:45
DX: F41.9 Anxiety disorder, unspecified (principal); E11.9 Type 2 diabetes mellitus without complications; F17.200 Nicotine dependence, unspecified, uncomplicated; I10 Essential (primary) hypertension; J45.909 Unspecified asthma, uncomplicated; K21.9 Gastro-esophageal reflux disease without esophagitis; Z79.51 Long term (current) use of inhaled steroids; Z79.4 Long term (current) use of insulin; Z91.09 Other allergy status, other than to drugs and biological substances; Z79.899 Other long term (current) drug therapy
CPT/HCPCS: 99283

== ENCOUNTER 2021-07-17 11:08 | Inpatient (IN) | payer MEDICARE, MEDICAID ==
[2021-07-17] MEDS ORDERED: LORazepam 2 MG/ML INJ IV STA (16:36)
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
[2021-07-17 17:11] LABS: Anisocytosis Slight; Basophils # (A) 0.2 k/uL (0-0.2); Basophils % (A) 1 %; Eosinophils # (A) 0.2 k/uL (0-0.7); Eosinophils % (A) 2 %; HGB 17.7 gm/dL (13.0-17.5); Hypochromasia Marked; Lymphocytes # (A) 1.2 k/uL (1.0-4.8); Lymphocytes % (A) 10 %; MCH 25.4 pg (25.0-35.0); MCHC 29.1 g/dL (31.0-37.0); MCV 87.3 fL (80.0-100.0); Mean Platelet Volume 7.4; Monocytes # (A) 0.7 k/uL (0-1.0); Monocytes % (A) 6 %; Neutrophils # (A) 9.8 k/uL (1.3-7.7); Neutrophils % (A) 80 %; Platelet Count 280 k/uL (150-450); Poikilocytosis Slight; RBC 6.98 m/uL (4.30-5.90); RDW 16.7 % (11.5-15.5); WBC 12.1 k/uL (3.8-10.6)
[2021-07-17 17:14] LABS: HCT 60.9 % (39.0-53.0)
[2021-07-17] MEDS ORDERED: SODIUM CHLORIDE 0.9% 1,000 ML IV STA ×2 (17:17→17:19)
[2021-07-17 17:23] LABS: African American GFR (CKD) >90 (>60 ml/min/1.73 sqM); Alcohol <10 mg/dL; Anion Gap 5 mmol/L; Blood Urea Nitrogen 17 mg/dL (9-20); Calcium 9.5 mg/dL (8.4-10.2); Carbon Dioxide 34 mmol/L (22-30); Chloride 99 mmol/L (98-107); Glucose 105 mg/dL (74-99); Non-African American GFR(CKD) >90 (>60 ml/min/1.73 sqM); Sodium 138 mmol/L (137-145)
[2021-07-17 17:24] LABS: Potassium 4.8 mmol/L (3.5-5.1)
[2021-07-17 19:59] LABS: Appearance,Urine Clear (Clear); Bilirubin,Urine Negative (Negative); Blood,Urine Negative (Negative); Color,Urine Yellow; Glucose,Urine (UA) 4+ (Negative); Ketones,Urine 1+ (Negative); Leukocyte Esterase,Urine Negative (Negative); Mucus,Urine Occasional /hpf; Nitrite,Urine Negative (Negative); PH, Urine 6.5 (5.0-8.0); Protein,Urine 1+ (Negative); RBC,Urine 1 /hpf (0-5); Squamous Epithelial Cell,Urine <1 /hpf (0-4); WBC,Urine 5 /hpf (0-5)
[2021-07-17 20:01] LABS: Anisocytosis Slight; HGB 17.8 gm/dL (13.0-17.5); Hypochromasia Marked; MCH 26.3 pg (25.0-35.0); MCV 87.9 fL (80.0-100.0); Mean Platelet Volume 7.1; Platelet Count 300 k/uL (150-450); Poikilocytosis Slight; RBC 6.77 m/uL (4.30-5.90); RDW 17.1 % (11.5-15.5); WBC 12.5 k/uL (3.8-10.6)
[2021-07-17 20:02] LABS: HCT 59.5 % (39.0-53.0)
[2021-07-17 20:08] LABS: Amphetamine Screen,Urine Not Detected (NotDetected); Barbiturate Screen,Urine Not Detected (NotDetected); Benzodiazepines Screen,Urine Detected (NotDetected); Cocaine Screen,Urine Not Detected (NotDetected); Methadone Screen, Urine Not Detected (NotDetected); Opiate Screen,Urine Not Detected (NotDetected); Oxycodone Screen, Urine Not Detected (NotDetected); Phencyclidine Screen,Urine Not Detected (NotDetected); Tricyclic Antidepressant,Urine Detected (NotDetected); Urn Cannabinoid Scrn Not Detected (NotDetected)
[2021-07-17] MEDS ORDERED: QUEtiapine 200 MG TAB PO SCH (21:00)
[2021-07-17] MEDS ORDERED: clonazePAM 0.5 MG TAB PO STA (23:54)
[2021-07-18] MEDS ORDERED: ALBUTEROL INHALER 60 PUFF/8 GM INHALER (MHU) INHALATION PRN (02:08)
[2021-07-18] MEDS ORDERED: MAG HYDROX/AL HYDROX/SIMETH 30 ML CUP PO PRN (02:09)
[2021-07-18] MEDS ORDERED: HALOPERIDOL LACTATE 5 MG/ML 1 ML VIAL IM PRN (02:09)
[2021-07-18] MEDS ORDERED: MAGNESIUM HYDROXIDE 2,400 MG/10 ML CUP PO PRN (02:09)
[2021-07-18] MEDS ORDERED: ACETAMINOPHEN TAB 325 MG TAB PO PRN (02:09)
[2021-07-18] MEDS ORDERED: haloperidoL 5 MG TAB PO PRN (02:13)
[2021-07-18] MEDS ORDERED: PANTOPRAZOLE 40 MG TABLET PO SCH (07:30)
[2021-07-18] MEDS ORDERED: TIOTROPIUM 2.5 MCG INHALER (MHU) INHALATION SCH (08:00)
[2021-07-18 08:10] LABS: Glucose,Whole Blood 69 mg/dL (75-99)
[2021-07-18 08:22] LABS: Glucose,Whole Blood 89 mg/dL (75-99)
[2021-07-18 08:43] VITALS: BP 151/86; TEMP 97.5
[2021-07-18] MEDS ORDERED: INSULIN REGULAR 100 UNIT/ML VIAL (IM/SQ) SQ SCH ×2 (09:00→21:00)
[2021-07-18] MEDS ORDERED: METOPROLOL TARTRATE 25 MG TAB PO SCH (09:00)
[2021-07-18] MEDS ORDERED: NON FORMULARY DRUG (Empagliflozin [Jardiance] 25 MG Tablet) PO SCH (09:00)
[2021-07-18] MEDS ORDERED: metFORMIN 500 MG TAB PO SCH ×2 (09:00→17:30)
[2021-07-18] MEDS ORDERED: clonazePAM 1 MG TAB PO SCH (09:00)
[2021-07-18] MEDS ORDERED: PIOGLITAZONE 30 MG TAB PO SCH (09:00)
[2021-07-18] MEDS ORDERED: NICOTINE 14MG/24HR PATCH TRANSDERM SCH (09:00)
[2021-07-18 09:51] VITALS: PULSE 66
--- NOTE | 2021-07-18 10:44 | XR ---
EXAMINATION TYPE: XR chest 2V DATE OF EXAM: 07/18/2021 COMPARISON: Chest x-ray December 31, 2020 HISTORY: Dyspnea. TECHNIQUE: Frontal and lateral views of the chest are obtained. FINDINGS: There is new right basilar opacity on frontal view was also seen on lateral view. Stable c ardiomegaly. No pleural effusion or pneumothorax seen bilaterally. The osseous structures are intact . IMPRESSION: Cardiomegaly with new right basilar acute infiltrate and/or atelectasis.
[2021-07-18 11:18] LABS: ALT 9 U/L (4-49); AST 21 U/L (17-59); African American GFR (CKD) >90 (>60 ml/min/1.73 sqM); Albumin 3.3 g/dL (3.5-5.0); Alkaline Phosphatase 85 U/L (38-126); Anion Gap 2 mmol/L; Blood Urea Nitrogen 10 mg/dL (9-20); Calcium 8.9 mg/dL (8.4-10.2); Carbon Dioxide 37 mmol/L (22-30); Chloride 100 mmol/L (98-107); Glucose 154 mg/dL (74-99); Non-African American GFR(CKD) >90 (>60 ml/min/1.73 sqM); Potassium 4.3 mmol/L (3.5-5.1); Sodium 139 mmol/L (137-145); Total Bilirubin 0.5 mg/dL (0.2-1.3); Total Protein 5.9 g/dL (6.3-8.2)
[2021-07-18] MEDS ORDERED: IPRATROPIUM-ALBUTEROL 3 ML NEB INHALATION PRN ×2 (11:36)
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
[2021-07-18] MEDS ORDERED: methylPREDNISolone SOD SUCCI 40 MG/ML 1 ML VIAL IV SCH ×2 (12:00)
[2021-07-18] MEDS ORDERED: LITHIUM CARBONATE 300 MG CAP PO SCH (12:00)
[2021-07-18] MEDS ORDERED: INSULIN ASPART (NovoLOG) 100 UNIT/ML VIAL SQ SCH (12:30)
[2021-07-18 12:56] LABS: Glucose,Whole Blood 120 mg/dL (75-99)
[2021-07-18 14:52] VITALS: RESP 20
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
[2021-07-18] MEDS ORDERED: ATORVASTATIN 20 MG TAB PO SCH (21:00)
== END 2021-07-18 15:28 | disposition short-term general hospital (02) | DRG 885 ==
LOC: EC 11:08 → 3MHU 07-18 00:42
PROVIDERS: ADMIT Psychiatry & Neurology Psychiatry; ATTEND Psychiatry & Neurology Psychiatry
DX: F31.30 Bipolar disorder, current episode depressed, mild or moderate severity, unspecified (principal); J96.01 Acute respiratory failure with hypoxia; J96.02 Acute respiratory failure with hypercapnia; J44.1 Chronic obstructive pulmonary disease with (acute) exacerbation; R45.851 Suicidal ideations; B30.9 Viral conjunctivitis, unspecified; D72.829 Elevated white blood cell count, unspecified; E11.649 Type 2 diabetes mellitus with hypoglycemia without coma; E66.9 Obesity, unspecified; F17.210 Nicotine dependence, cigarettes, uncomplicated; F41.1 Generalized anxiety disorder; I10 Essential (primary) hypertension; Q05.9 Spina bifida, unspecified; Z20.822 Contact with and (suspected) exposure to COVID-19; Z79.4 Long term (current) use of insulin; Z79.84 Long term (current) use of oral hypoglycemic drugs; Z79.899 Other long term (current) drug therapy
CPT/HCPCS: 36415; 71046; 80048; 80053; 80178; 80306; 80320; 81001; 82075; 83036; 84443; 85025; 85027; 85379; 87635; 93005; 96361; 96374; 99285

== ENCOUNTER 2021-07-18 10:40 | Inpatient (IN) | payer MEDICARE, OTHER ==
[2021-07-18 17:41] LABS: Glucose,Whole Blood 121 mg/dL (75-99)
[2021-07-18] MEDS: INSULIN ASPART (NovoLOG) 100 UNIT/ML VIAL SQ SCH ×2 (18:21→20:59)
[2021-07-18] MEDS: clonazePAM 1 MG TAB PO SCH ×2 (18:29→21:25)
[2021-07-18] MEDS: NICOTINE 21MG/24HR PATCH TRANSDERM SCH (18:29)
[2021-07-18] MEDS: IPRATROPIUM-ALBUTEROL 3 ML NEB INHALATION SCH (20:32)
[2021-07-18] MEDS: SYMBICORT 160-4.5 MCG INHALER INHALATION SCH (20:32)
[2021-07-18 20:47] LABS: Glucose,Whole Blood 110 mg/dL (75-99)
[2021-07-18] MEDS ORDERED: QUEtiapine 200 MG TAB PO SCH (21:00)
[2021-07-18] MEDS: methylPREDNISolone SOD SUCCI 40 MG/ML 1 ML VIAL IV SCH (21:23)
[2021-07-18] MEDS: ATORVASTATIN 20 MG TAB PO SCH (21:25)
[2021-07-18] MEDS: METOPROLOL TARTRATE 25 MG TAB PO SCH (21:51)
[2021-07-19 07:15] LABS: Glucose,Whole Blood 128 mg/dL (75-99)
[2021-07-19] MEDS: IPRATROPIUM-ALBUTEROL 3 ML NEB INHALATION SCH ×4 (08:44→20:54)
[2021-07-19] MEDS: SYMBICORT 160-4.5 MCG INHALER INHALATION SCH ×2 (08:44→20:55)
[2021-07-19] MEDS: methylPREDNISolone SOD SUCCI 40 MG/ML 1 ML VIAL IV SCH ×2 (08:56→21:03)
[2021-07-19] MEDS: PANTOPRAZOLE 40 MG TABLET PO SCH ×2 (08:56→13:43)
[2021-07-19] MEDS: METOPROLOL TARTRATE 25 MG TAB PO SCH ×3 (08:56→21:03)
[2021-07-19] MEDS: INSULIN ASPART (NovoLOG) 100 UNIT/ML VIAL SQ SCH ×4 (08:57→20:20)
[2021-07-19] MEDS: Empagliflozin [Jardiance] PO SCH (08:57)
[2021-07-19] MEDS: clonazePAM 1 MG TAB PO SCH ×2 (08:57→13:50)
[2021-07-19] MEDS: NICOTINE 21MG/24HR PATCH TRANSDERM SCH (08:58)
[2021-07-19 09:23] LABS: African American GFR (CKD) 149.6 (60.0-200.0); BUN/Creat Ratio 13.2 Ratio (12.00-20.00); Blood Urea Nitrogen 6.6 mg/dL (9.0-27.0); Calcium 9.1 mg/dL (8.7-10.3); Magnesium 2.2 mg/dL (1.5-2.4); Potassium 5.3 mmol/L (3.5-5.5)
[2021-07-19 09:58] LABS: Basophils # (A) 0.04 X 10*3/uL (0.00-0.10); Basophils % (A) 0.2 %; Eosinophils # (A) 0 X 10*3/uL (0.04-0.35); Eosinophils % (A) 0 %; HCT 61.3 % (39.6-50.0); HGB 17.6 g/dL (13.0-17.0); Immature Grans, Automated 0.6 %; Lymphocytes # (A) 0.49 X 10*3/uL (0.90-5.00); MCH 25.8 pg (27.0-32.0); MCHC 28.7 g/dL (32.0-37.0); MCV 89.8 fL (80.0-97.0); Mean Platelet Volume 9.5 fL (9.5-12.2); Monocytes # (A) 0.05 X 10*3/uL (0.20-1.00); Monocytes % (A) 0.3 %; NRBC Per 100 WBC 0 /100 WBCS (0.0-0.0); Neutrophils # (A) 15.41 X 10*3/uL (1.80-7.70); Neutrophils % (A) 95.9 %; Platelet Count 239 X 10*3/uL (140-440); RBC 6.83 X 10*6/uL (4.40-5.60); RDW 20.4 % (11.5-14.5); WBC 16.09 X 10*3/uL (4.50-10.00)
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
--- NOTE | 2021-07-19 10:34 | P.HPIM ---
History of Present Illness H&P Date: 07/19/21 This is a 45-year-old male who initially was evaluated on [facility] where he was admitted as a court ordered petition for medication adjustments. Patient has a past medical history significant for bipolar type I, ADD, asthma, COPD, diabetes mellitus, hypertension, gastroesophageal reflux disease, spinal bifida with spinal stenosis, patient is a daily smoker since the age of 11, currently smoking 2 packs per day. He denies any alcohol use, denies illicit drug use. States he lives with his mother, uses a wheel chair for transportation. He reportedly has been unable to care for his basic needs, and presents with poor hygiene. He is currently pending psychiatric evaluation. He was transferred to the medical floor as he was found to have significant shortness of breath making it difficult to carry on a conversation. He reports this has been going on at home for 2 weeks now and was evaluated at his PCP's office. He reports 2-3 days ago the shortness of breath worsened and he has clear nasal drainage and congestion. He denies fever or chills. Denies chest pain. Denies nausea, vomiting, diarrhea. Initial diagnostics for admission to [facility] include EKG showing sinus rhythm with a heart rate of 72, there is no ST or T wave abnormalities noted. Lab on admission showing white count 12.1, hemoglobin 17.7, hematocrit is elevated at 60.9. Chemistry panel showing sodium 138, potassium 4.8, CO2 34, BUN 17, creatinine 0.63, glucose of 105. Urinalysis positive for 1+ protein, 4+ glucose, 1+ ketone with occasional mucus. His urine drug toxicology is positive for tricyclic antidepressants, benzodiazepines. Covid is not detected. Chest xray showing new right basilar acute infiltrate and or atelectasis. He was found to be hypoxic on room air in the 90s, reports to not wearing any home oxyg en. He required 4-6 L of oxygen to stabilize and was transferred to the medical floor where he was re-evaluated. He was started on IV solu-medrol, and duonebs. Pulmonary services were consulted for evaluation. Patient appears to have worsening hypoxia when sleeping, possibility of an obstructive sleep apnea. He is lethargic today as well, arrousable to voice, stopped the klonopin and decreased seroquel. Final med reqs from psychiatry. D-Dimer negative, procalcitonin 0.08. Influenza A and B also not detected. Current vital signs include heart rate of 90, blood pressure 133/79, 96% on 4L nasal cannula. REVIEW OF SYSTEMS: CONSTITUTIONAL: No fever, no malaise, Reports fatigue HEENT: No recent visual problems or hearing problems. Denied any sore throat. Reports nasal drainage and congestion. CARDIOVASCULAR: No chest pain, orthopnea, PND, no palpitations, no syncope. PULMONARY: Reports shortness of breath, denies cough GASTROINTESTINAL: No diarrhea, no nausea, no vomiting, no abdominal pain. NEUROLOGICAL: No headaches, no weakness, no numbness. HEMATOLOGICAL: Denies any bleeding or petechiae. GENITOURINARY: Denies any burning micturition, frequency, or urgency. MUSCULOSKELETAL/RHEUMATOLOGICAL: Denies any joint pain, swelling, or any muscle pain. ENDOCRINE: Denies any polyuria or polydipsia. The rest of the 14-point review of systems is negative. PHYSICAL EXAMINATION: GENERAL: The patient is alert and oriented x1-2, Patient is lethargic today. Hygeine is poor. Obese. HEENT: Pupils are round and equally reacting to light. EOMI. Injected sclera, drainage and crusting noted. No conjunctival pallor. Normocephalic, atraumatic. No pharyngeal erythema. No thyromegaly. Poor dentition CARDIOVASCULAR: S1 and S2 present. No murmurs, rubs, or gallops. PULMONARY: Chest is tight, diminished aeration, with expiratory wheezing noted. ABDOMEN: Soft, nontender, nondistended, normoactive bowel sounds. No palpable organomegaly. MUSCULOSKELETAL: No joint swelling or deformity. EXTREMITIES: No cyanosis, clubbing, or pedal edema. NEUROLOGICAL: Lethargic difficult to complete full neurological exam. Speech is slightly slurred. SKIN: Generalized rash Assessment and plan Assessment Acute hypoxic and hypercarbic respiratory failure secondary to COPD exacerbation currently requiring 4L of nasal cannula Leukocytosis Viral conjunctivitis, bilateral History of asthma, COPD History of hypertension Diabetes Mellitus type 2 with hypoglycemia on admission, improved Proteinuria History Bipolar / ADD History of spina bifida History of spinal stenosis Obesity Chronic daily nicotine use GI Prophylaxis DVT Prophylaxis Full Code Plan Oxygen support, titrate as needed IV steroids, Duonebs, symbicort Pending pulmonary, psychiatric consultation Continue with novolog s/s Stop klonopin, decrease seroquel Speech evaluation The impression and plan of care has been dictated by Isa Driscoll Nurse Practitioner as directed. Dr. Scar MD I have performed a history and physical examination and medical decision making of this patient, discussed the same with the dictator, and agree with the dictators assessment and plan as written, documented as a scribe. Based on total visit time, I have performed more than 50% of this visit. Past Medical History Past Medical History: Asthma, Diabetes Mellitus, GERD/Reflux, Hypertension, Skin Disorder Additional Past Medical History / Comment(s): hx spina bifida, spinal stenosis, pancreatitis. scrotal wound (to start on antibiotics 10/31/15), migraines, uses wheelchair-can ambulate but does fall at times History of Any Multi-Drug Resistant Organisms: None Reported Past Surgical History: Back Surgery Additional Past Surgical History / Comment(s): back surgery- 3 rods, 4 screws Past Anesthesia/Blood Transfusion Reactions: No Reported Reaction Past Psychological History: ADD/ADHD, Bipolar Smoking Status: Current every day smoker Past Alcohol Use History: None Reported Additional Past Alcohol Use History / Comment(s): smoker since age 11- < 1/2 PPD Past Drug Use History: None Reported - Past Family History Mother Family Medical History: Cancer Father Family Medical History: Cancer Medications and Allergies Home Medications Medication Instructions Recorded Confirmed Type Albuterol Sulfate [Ventolin HFA] 2 puff INHALATION RT-QID PRN 12/31/20 07/18/21 History Atorvastatin Calcium [Lipitor] 20 mg PO HS 12/31/20 07/18/21 History Empagliflozin [Jardiance] 25 mg PO DAILY 12/31/20 07/18/21 History Insulin Regular, Human [humulin R 40 unit SQ HS 12/31/20 07/18/21 History U-500 Kwikpen] Insulin Regular, Human [humulin R 60 unit SQ DAILY 12/31/20 07/18/21 History U-500 Kwikpen] [place] Carbonate 600 mg PO DAILY@1200 12/31/20 07/18/21 History Omeprazole 20 mg PO DAILY 12/31/20 07/18/21 History Pioglitazone [Actos] 30 mg PO DAILY 12/31/20 07/18/21 History QUEtiapine FUMARATE [SEROquel] 200 mg PO HS 12/31/20 07/18/21 History metFORMIN HCL [Glucophage] 1,000 mg PO BID 12/31/20 07/18/21 History Ipratropium [place] [Atrovent Hfa] 2 puff INHALATION RT-QID 07/17/21 07/18/21 History Metoprolol Tartrate [Lopressor] 25 mg PO BID 07/17/21 07/18/21 History clonazePAM [KlonoPIN] 1 mg PO QID 07/17/21 07/18/21 History fluvoxaMINE [Luvox] 50 mg PO DAILY 07/17/21 07/18/21 History fluvoxaMINE [Luvox] 100 mg PO HS 07/17/21 07/18/21 History lisinopriL [Zestril] 2.5 mg PO DAILY 07/17/21 07/18/21 History Allergies Allergy/AdvReac Type Severity Reaction Status Date / Time metals Allergy Rash/Hives, Uncoded 07/18/21 16:11 swelling Physical Exam Vitals: Vital Signs Temp Pulse Pulse Resp BP Pulse Ox 07/19/21 09:03 90 133/79 07/19/21 09:01 79 96 07/19/21 08:44 84 96 07/19/21 04:57 98.0 F 82 19 109/69 91 L 07/18/21 20:32 52 L 99 07/18/21 19:53 99.5 F 70 16 114/76 92 L 07/18/21 16:02 99 F 72 18 116/74 94 L Intake and Output 07/18/21 07/19/21 07/19/21 22:59 06:59 14:59 Output Total 400 400 Balance -400 -400 Output: Urine 400 400 Other: Voiding Method Toilet Urinal # Voids 1 Weight 97.25 kg Results CBC & Chem 7: 07/19/21 05:27 07/19/21 05:27 Labs: Abnormal Lab Results - Last 24 Hours (Table) 07/18/21 07/18/21 07/19/21 Range/Units 17:40 20:45 07:13 POC Glucose (mg/dL) 121 H 110 H 128 H (75-99) mg/dL Thrombosis Risk Factor Assmnt - Choose All That Apply Any of the Below Risk Factors Present?: Yes Each Factor Represents 1 point: Abnormal pulmonary function (COPD), Age 41-60 years, Obesity (BMI >25) Other Risk Factors: No Other congenital or acquired thrombophilia - If yes, enter type in comment: No Thrombosis Risk Factor Assessment Total Risk Factor Score: 3 Thrombosis Risk Factor Assessment Level: Moderate Risk Assessment and Plan Time with Patient: Less than 30
[2021-07-19] MEDS ORDERED: ENOXAPARIN 30 MG/0.3 ML SYRINGE SQ SCH (10:45)
[2021-07-19 12:04] LABS: Glucose,Whole Blood 146 mg/dL (75-99)
[2021-07-19 12:54] LABS: ABG Oxygen Saturation 93.6 % (94-97); ABG PH 7.25 (7.35-7.45); ABG PO2 71 mmHg (83-108); ABG TCO2 43 mmol/L (19-24); Allen Test Performed? Yes
[2021-07-19 12:57] LABS: ABG HCO3 40 mmol/L (21-25); ABG PCO2 92 mmHg (35-45)
[2021-07-19] MEDS: LITHIUM CARBONATE 300 MG CAP PO SCH (13:43)
--- NOTE | 2021-07-19 13:56 | P.CN ---
Psychiatric Consult - . Consult date: 07/19/21 Consult:: Clinical Problems: Respiratory failure secondary to COPD exacerbation, major depressive disorder, tobacco use disorder Interim history: Reviewed the medical record and attempted to interview the patient. He was laying in a medical bed with the one-to-one and attendance. A respiratory therapist was present in the room after placing him on BiPAP due to respiratory distress with a pCO2 of 91.7. He was arousable but unable to participate in a psychiatric assessment due to the level of his respiratory distress. The patient is a 45-year-old male admitted to the psychiatric unit on 07/18/[address] order for mental health treatment. The petition described suicidal thoughts with a plan as well as anxiety and depressed. On the day of admission she developed respiratory distress. The biomedical service engineer evaluated him and found that he was dyspneic unreliability talk in full sentences with outpatient his breath. He had oxygen saturation of 90% on 4 L of nasal cannula. Mental status exam: He was alert and oriented to person. He is unclear respiratory distress he did not receiving BiPAP. Assessment: He is not appropriate for transfer to psychiatric unit due to the severity of his respiratory distress. Plan: Continue medical treatment as indicated. Continue one-to-one suicide precautions. Continue psychotropic medications including Luvox 50 mg daily for milligrams at bedtime, lithium carbonate 600 mg daily and Seroquel 25 mg at bedtime. Psychiatry will follow. 07/19/21 13:45
[2021-07-19] MEDS: SODIUM CHLORIDE 0.9% 1,000 ML IV SCH (14:09)
[2021-07-19 17:42] LABS: Glucose,Whole Blood 105 mg/dL (75-99)
[2021-07-19 19:54] LABS: Glucose,Whole Blood 113 mg/dL (75-99)
[2021-07-19] MEDS ORDERED: QUEtiapine 25 MG TAB PO SCH (21:00)
[2021-07-19] MEDS: ATORVASTATIN 20 MG TAB PO SCH (21:03)
[2021-07-20] MEDS ORDERED: LORazepam 2 MG/ML INJ IV STA ×2 (00:27→16:08)
[2021-07-20] MEDS: SODIUM CHLORIDE 0.9% 1,000 ML IV SCH ×2 (06:15→10:19)
[2021-07-20 07:26] LABS: Glucose,Whole Blood 92 mg/dL (75-99)
[2021-07-20] MEDS: SYMBICORT 160-4.5 MCG INHALER INHALATION SCH (07:50)
[2021-07-20] MEDS: IPRATROPIUM-ALBUTEROL 3 ML NEB INHALATION SCH ×4 (07:50→20:21)
[2021-07-20] MEDS: INSULIN ASPART (NovoLOG) 100 UNIT/ML VIAL SQ SCH ×3 (07:57→19:12)
[2021-07-20] MEDS: PANTOPRAZOLE 40 MG TABLET PO SCH (08:21)
[2021-07-20] MEDS: Empagliflozin [Jardiance] PO SCH (08:21)
[2021-07-20] MEDS: NICOTINE 21MG/24HR PATCH TRANSDERM SCH (08:21)
[2021-07-20] MEDS: methylPREDNISolone SOD SUCCI 40 MG/ML 1 ML VIAL IV SCH ×2 (08:21→16:53)
[2021-07-20] MEDS: METOPROLOL TARTRATE 25 MG TAB PO SCH ×2 (08:22→21:49)
[2021-07-20] MEDS ORDERED: ENOXAPARIN 40 MG/0.4 ML SYRINGE SQ SCH (09:00)
--- NOTE | 2021-07-20 09:16 | XR ---
EXAMINATION TYPE: XR chest 1V portable DATE OF EXAM: 07/20/2021 COMPARISON: 07/18/2021 HISTORY: Shortness of breath TECHNIQUE: Single frontal view of the chest is obtained. FINDINGS: Patient is rotated the heart size grossly stable and mildly enlarged. Interstitium may be mildly improved. No pleural effusion or pneumothorax. Arthropathy of the shoulders. IMPRESSION: 1. Limited exam due to positioning demonstrates cardiomegaly. There is interval improvement in the in terstitium suggestive of improving interstitial venous congestion or pneumonitis.
[2021-07-20 09:24] LABS: Basophils # (A) 0.01 X 10*3/uL (0.00-0.10); Basophils % (A) 0.1 %; Eosinophils # (A) 0 X 10*3/uL (0.04-0.35); Eosinophils % (A) 0 %; HCT 57.4 % (39.6-50.0); HGB 16.1 g/dL (13.0-17.0); Immature Grans, Automated 0.4 %; Lymphocytes % (A) 4.6 %; MCV 89.1 fL (80.0-97.0); Mean Platelet Volume 9.9 fL (9.5-12.2); Monocytes # (A) 0.44 X 10*3/uL (0.20-1.00); Monocytes % (A) 2.9 %; NRBC Per 100 WBC 0 /100 WBCS (0.0-0.0); Neutrophils # (A) 13.99 X 10*3/uL (1.80-7.70); Platelet Count 253 X 10*3/uL (140-440); RBC 6.44 X 10*6/uL (4.40-5.60); RDW 20.2 % (11.5-14.5)
[2021-07-20 09:27] LABS: African American GFR (CKD) 149.6 (60.0-200.0); Anion Gap 5.2 mmol/L (10.00-18.00); Calcium 9.5 mg/dL (8.7-10.3); Carbon Dioxide 37.8 mmol/L (20.0-27.5); Potassium 5.4 mmol/L (3.5-5.5)
[2021-07-20 09:49] LABS: Glucose,Whole Blood 108 mg/dL (75-99)
[2021-07-20] MEDS ORDERED: ACETAMINOPHEN TAB 325 MG TAB PO PRN (09:51)
--- NOTE | 2021-07-20 09:51 | P.PN ---
Subjective Progress Note Date: 07/20/21 This is a 45-year-old male who initially was evaluated on [facility] where he was admitted as a court ordered petition for medication adjustments. Patient has a past medical history significant for bipolar type I, ADD, asthma, COPD, diabetes mellitus, hypertension, gastroesophageal reflux disease, spinal bifida with spinal stenosis, patient is a daily smoker since the age of 11, currently smoking 2 packs per day. He denies any alcohol use, denies illicit drug use. States he lives with his mother, uses a wheel chair for transportation. He reportedly has been unable to care for his basic needs, and presents with poor hygiene. He is currently pending psychiatric evaluation. He was transferred to the medical floor as he was found to have significant shortness of breath making it difficult to carry on a conversation. He reports this has been going on at home for 2 weeks now and was evaluated at his PCP's office. He reports 2-3 days ago the shortness of breath worsened and he has clear nasal drainage and congestion. He denies fever or chills. Denies chest pain. Denies nausea, vomiting, diarrhea. Initial diagnostics for admission to [facility] include EKG showing sinus rhythm with a heart rate of 72, there is no ST or T wave abnormalities noted. Lab on admission showing white count 12.1, hemoglobin 17.7, hematocrit is elevated at 60.9. Chemistry panel showing sodium 138, potassium 4.8, CO2 34, BUN 17, creatinine 0.63, glucose of 105. Urinalysis positive for 1+ protein, 4+ glucose, 1+ ketone with occasional mucus. His urine drug toxicology is positive for tricyclic antidepressants, benzodiazepines. Covid is not detected. Chest xray showing new right basilar acute infiltrate and or atelectasis. He was found to be hypoxic on room air in the 90s, reports to not wearing any home oxygen. He required 4-6 L of oxygen to stabilize and was transferred to the medical floor where he was re-evaluated. He was started on IV solu-medrol, and duonebs. Pulmonary services were consulted for evaluation. Patient appears to have worsening hypoxia when sleeping, possibility of an obstructive sleep apnea. He is lethargic today as well, arrousable to voice, stopped the klonopin and decreased seroquel. Final med reqs from psychiatry. D-Dimer negative, procalcitonin 0.08. Influenza A and B also not detected. Current vital signs include heart rate of 90, blood pressure 133/79, 96% on 4L nasal cannula. 07/20/2021 Patient evaluated today on BiPAP. Yesterday afternoon he was quite lethargic, seroquel was decreased down to 25 mg PO HS and klonopin was discontinued for now. Any additional recommendations reguarding his psychiatric medications from psych consultation as patient was on a court order petition for mental health treatment. ABG's were completed yesterday showing pH of 7.25, PCO2 of 92, PO2 of 71, HCO3 of 40, total CO2 43, ox saturation 93.6. He was placed on a 40% fio2 BiPAP. He continues with 1:1 Sitter at the bedside as well. Labs today showing a white count of 15.20, hgb 16.1, hematocrit has improved slightly to 57.4. Sodium 142, potassium 5.4, BUN 19, creat 0.5. Blood glucose is in the 100-90s. We are continuing to hold his home insulin, metformin and actos, and covering with sliding scale as needed. He continues on jardiance. Vital signs today showing temp of 98.1, heart rate 82, blood pressure 128/77, oxygen saturation of 94% on BiPAP. Blood cultures are showing negative. He was started on empiric antibiotic coverage with zosyn today by pulmonary team, he continues also IV steroids which were increased to every 8 hours today, as well as duonebs and pulmicort. Patient was evaluated by pulmonary team today and is being transferred to the ICU this morning for closer monitoring regarding his respiratory status. He is answering questions appropriately, however states he was at his moms house. He is more alert, and moving all extremities with equal strength. He also continues with watery drainage from his eyes. He is complaining of back pain today. Difficult to complete full review of systems as patient is on BiPAP. PHYSICAL EXAMINATION: GENERAL: The patient is alert and oriented x1-2, Patient is more alert today. Obese. HEENT: Pupils are round and equally reacting to light. EOMI. Injected sclera, clear drainage. No conjunctival pallor. Normocephalic, atraumatic. No pharyngeal erythema. No thyromegaly. Poor dentition. He does wear top dentures which are currently not in place. CARDIOVASCULAR: S1 and S2 present. No murmurs, rubs, or gallops. PULMONARY: Chest is tight, diminished aeration. ABDOMEN: Soft, nontender, nondistended, normoactive bowel sounds. No palpable organomegaly. MUSCULOSKELETAL: No joint swelling or deformity. EXTREMITIES: No cyanosis, clubbing, or pedal edema. NEUROLOGICAL: Lethargic difficult to complete full neurological exam. Speech is slightly slurred however patient does not have his top dentures in. SKIN: Generalized rash Assessment and plan Assessment Acute hypoxic and hypercarbic respiratory failure secondary to COPD exacerbation currently requiring BiPAP with 40% FiO2, ABG's done yesterday showing pCO2 of 92. Leukocytosis Viral conjunctivitis, bilateral History of asthma, COPD History of hypertension Diabetes Mellitus type 2 with hypoglycemia on admission, improved Proteinuria History Bipolar / ADD History of spina bifida History of spinal stenosis Obesity Chronic daily nicotine use GI Prophylaxis DVT Prophylaxis Full Code Plan Patient is being transferred to ICU Empiric antibiotic coverage added today with IV Zosyn by pulmonary team Continue on BiPAP IV steroids, Duonebs, pulmicort Speech evaluation pending Can crush meds with applesauce per speech pathologist Continue with 1:1 sitter per psychiatry recommendations The impression and plan of care has been dictated by Isa Driscoll Nurse Practitioner as directed. Dr. Scar MD I have performed a history and physical examination and medical decision making of this patient, discussed the same with the dictator, and agree with the dictators assessment and plan as written, documented as a scribe. Based on total visit time, I have performed more than 50% of this visit. Objective - Vital Signs Vital signs: Vital Signs Temp 98.1 F 07/20/21 04:35 Pulse 82 07/20/21 08:12 Resp 18 07/20/21 04:35 BP 128/77 07/20/21 04:35 Pulse Ox 94 L 07/20/21 07:51 Intake & Output 07/19/21 07/20/21 07/20/21 18:59 06:59 18:59 Intake Total 900 Output Total 800 Balance 100 Intake: Intake, IV Titration 900 Amount Sodium Chloride 0.9% 1, 900 000 ml @ 75 mls/hr IV . [id number] VINCE Rx#:[id number] Output: Urine 800 Other: Voiding Method Toilet Urinal # Voids 1 - Labs CBC & Chem 7: 07/20/21 06:32 07/20/21 06:32 Labs: Abnormal Lab Results - Last 24 Hours (Table) 07/19/21 07/19/21 07/19/21 Range/Units 05:27 12:02 12:47 WBC 16.09 H (4.50-10.00) X 10*3/uL RBC 6.83 H (4.40-5.60) X 10*6/uL Hgb 17.6 H (13.0-17.0) g/dL Hct 61.3 H* (39.6-50.0) % MCH 25.8 L (27.0-32.0) pg MCHC 28.7 L (32.0-37.0) g/dL RDW 20.4 H (11.5-14.5) % Immature Gran # 0.10 H (0.00-0.04) X 10*3/uL Neutrophils # 15.41 H (1.80-7.70) X 10*3/uL Lymphocytes # 0.49 L (0.90-5.00) X 10*3/uL Monocytes # 0.05 L (0.20-1.00) X 10*3/uL Eosinophils # 0 L (0.04-0.35) X 10*3/uL ABG pH 7.25 L (7.35-7.45) ABG pCO2 92 H* (35-45) mmHg ABG pO2 71 L (83-108) mmHg ABG HCO3 40 H* (21-25) mmol/L ABG Total CO2 43 H (19-24) mmol/L ABG O2 Saturation 93.6 L (94-97) % Carbon Dioxide (20.0-27.5) mmol/L Anion Gap (10.00-18.00) mmol/L Creatinine (0.6-1.5) mg/dL BUN/Creatinine Ratio (12.00-20.00) Ratio Glucose (70-110) mg/dL POC Glucose (mg/dL) 146 H (75-99) mg/dL 07/19/21 07/19/21 07/20/21 Range/Units 17:40 19:52 06:32 WBC 15.20 H (4.50-10.00) X 10*3/uL RBC 6.44 H (4.40-5.60) X 10*6/uL Hgb (13.0-17.0) g/dL Hct 57.4 H* (39.6-50.0) % MCH 25.0 L (27.0-32.0) pg MCHC 28.0 L (32.0-37.0) g/dL RDW 20.2 H (11.5-14.5) % Immature Gran # 0.06 H (0.00-0.04) X 10*3/uL Neutrophils # 13.99 H (1.80-7.70) X 10*3/uL Lymphocytes # 0.70 L (0.90-5.00) X 10*3/uL Monocytes # (0.20-1.00) X 10*3/uL Eosinophils # 0 L (0.04-0.35) X 10*3/uL ABG pH (7.35-7.45) ABG pCO2 (35-45) mmHg ABG pO2 (83-108) mmHg ABG HCO3 (21-25) mmol/L ABG Total CO2 (19-24) mmol/L ABG O2 Saturation (94-97) % Carbon Dioxide (20.0-27.5) mmol/L Anion Gap (10.00-18.00) mmol/L Creatinine (0.6-1.5) mg/dL BUN/Creatinine Ratio (12.00-20.00) Ratio Glucose (70-110) mg/dL POC Glucose (mg/dL) 105 H 113 H (75-99) mg/dL 07/20/21 Range/Units 06:32 WBC (4.50-10.00) X 10*3/uL RBC (4.40-5.60) X 10*6/uL Hgb (13.0-17.0) g/dL Hct (39.6-50.0) % MCH (27.0-32.0) pg MCHC (32.0-37.0) g/dL RDW (11.5-14.5) % Immature Gran # (0.00-0.04) X 10*3/uL Neutrophils # (1.80-7.70) X 10*3/uL Lymphocytes # (0.90-5.00) X 10*3/uL Monocytes # (0.20-1.00) X 10*3/uL Eosinophils # (0.04-0.35) X 10*3/uL ABG pH (7.35-7.45) ABG pCO2 (35-45) mmHg ABG pO2 (83-108) mmHg ABG HCO3 (21-25) mmol/L ABG Total CO2 (19-24) mmol/L ABG O2 Saturation (94-97) % Carbon Dioxide 37.8 H (20.0-27.5) mmol/L Anion Gap 5.20 L (10.00-18.00) mmol/L Creatinine 0.5 L (0.6-1.5) mg/dL BUN/Creatinine Ratio 38.00 H (12.00-20.00) Ratio Glucose 113 H (70-110) mg/dL POC Glucose (mg/dL) (75-99) mg/dL Microbiology - Last 24 Hours (Table) 07/18/21 16:54 Blood Culture - Preliminary Blood No Growth after 24 hours 07/18/21 16:45 Blood Culture - Preliminary Blood No Growth after 24 hours Assessment and Plan Time with Patient: Greater than 30
[2021-07-20] MEDS: PIPERACILLIN-TAZOBACTAM 3.375 GM in SODIUM CHLORIDE 0.9% 100 ML IVPB SCH ×2 (10:19→16:53)
[2021-07-20] MEDS: DEXMEDETOMIDINE/0.9% NACL(PMX) 400 MCG in EMPTY BAG 1 BAG IV SCH ×2 (10:40→17:02)
[2021-07-20 11:18] LABS: ABG Base Excess 13.2 mmol/L; ABG HCO3 39 mmol/L (21-25); ABG Oxygen Saturation 95.6 % (94-97); ABG PH 7.33 (7.35-7.45); ABG PO2 74 mmHg (83-108); ABG TCO2 41 mmol/L (19-24); Allen Test Performed? Yes
[2021-07-20 11:21] LABS: ABG PCO2 75 mmHg (35-45)
[2021-07-20 11:53] LABS: Glucose,Whole Blood 113 mg/dL (75-99)
[2021-07-20] MEDS: LITHIUM CARBONATE 300 MG CAP PO SCH (12:14)
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
--- NOTE | 2021-07-20 15:38 | P.CON ---
Consult Note - . Consult date: 07/20/21 Assessment/Plan:: Clinical Problems: Respiratory failure secondary to COPD exacerbation, major depressive disorder, tobacco use disorder Interim history: I reviewed the medical record and attempted to interview the patient. He was transferred from medicine unit to the ICU due to worsening respiratory status. The one-to-one sitter remained in attendance. He was not responsive to verbal or tactile stimuli. The one-to-one sitter stated that he occasionally arouses and when using work he is oriented to person only. His blood count shows elevated pCO2 of 75 this morning. PO2 was also low at 74. WBC elevated as 15.2. Mental status exam: He was unresponsive on BiPAP. Assessment: He is lethargic and minimally responsive. Plan: Continue one-to-one. Hold lithium and Seroquel. Psychiatry will follow.
[2021-07-20] MEDS ORDERED: HALOPERIDOL LACTATE 5 MG/ML 1 ML VIAL ONE (15:54)
[2021-07-20] MEDS ORDERED: LORazepam 2 MG/ML INJ ONE (16:10)
[2021-07-20 16:37] LABS: ABG Base Excess 14.1 mmol/L; ABG Oxygen Saturation 95.9 % (94-97); ABG PH 7.32 (7.35-7.45); ABG PO2 78 mmHg (83-108); ABG TCO2 43 mmol/L (19-24); Allen Test Performed? Yes
[2021-07-20 16:45] LABS: ABG HCO3 40 mmol/L (21-25); ABG PCO2 78 mmHg (35-45)
--- NOTE | 2021-07-20 18:08 | XR ---
EXAMINATION TYPE: XR chest 1V portable DATE OF EXAM: 07/20/2021 5:50 PM COMPARISON: Chest radiographs from 07/20/2021. TECHNIQUE: XR chest 1V portable Frontal view of the chest. CLINICAL INDICATION:Male, 45 years old with history of Tube placement; FINDINGS: Lungs/Pleura: There is no evidence of pleural effusion, focal consolidation, or pneumothorax. Pulmonary vascularity: Pulmonary vascular congestion. Heart/mediastinum: Cardiomediastinal silhouette is enlarged and stable. Musculoskeletal: No acute osseous pathology. Lines/Tubes: Endotracheal tube with distal tip 3.4 cm above the willian Nasogastric tube with its distal tip and side-port projecting over the mediastinum IMPRESSION: 1. Endotracheal tube in appropriate position. 2. Nasogastric tube with distal tip and side-port projecting over the aortic arch. Advancement of at least 15 cm is recommended for optimal placement. 3. Similar cardiomegaly and pulmonary vascular congestion
[2021-07-20 18:43] LABS: Glucose,Whole Blood 149 mg/dL (75-99)
[2021-07-20 18:45] LABS: ABG Base Excess 12.2 mmol/L; ABG HCO3 36 mmol/L (21-25); ABG Oxygen Saturation 99.4 % (94-97); ABG PCO2 53 mmHg (35-45); ABG PH 7.44 (7.35-7.45); ABG PO2 176 mmHg (83-108); ABG TCO2 38 mmol/L (19-24); Allen Test Performed? Yes
[2021-07-20 20:09] LABS: Magnesium 2.3 mg/dL (1.6-2.3); Potassium 4.8 mmol/L (3.5-5.1)
[2021-07-20 20:14] LABS: Phosphorus 0.7 mg/dL (2.5-4.5)
[2021-07-20] MEDS ORDERED: Phosphorus Replacement Protoco 1 EACH MISC MISCELLANE PRN (20:19)
[2021-07-20] MEDS: BUDESONIDE 1 MG/2 ML NEBU INHALATION SCH (20:21)
[2021-07-20] MEDS: FORMOTEROL FUMARATE 20 MCG/2 ML NEBU INHALATION SCH (20:21)
[2021-07-20] MEDS: SODIUM PHOSPHATE 10 MMOL in SODIUM CHLORIDE 0.9% 250 ML IVPB SCH ×2 (20:58→23:18)
[2021-07-20 21:16] LABS: Glucose,Whole Blood 141 mg/dL (75-99)
[2021-07-20] MEDS ORDERED: INSULIN ASPART (NovoLOG) 100 UNIT/ML VIAL SQ SCH (21:16)
[2021-07-20] MEDS: CHLORHEXIDINE GLUCONATE 15 ML CUP MUCOUS MEM SCH (21:49)
[2021-07-20] MEDS: ATORVASTATIN 20 MG TAB PO SCH (21:49)
[2021-07-20 22:08] LABS: Glucose,Whole Blood 140 mg/dL (75-99)
--- NOTE | 2021-07-20 22:28 | XR ---
EXAMINATION TYPE: XR chest 1V portable DATE OF EXAM: 07/20/2021 9:52 PM COMPARISON: Chest radiograph from same day. TECHNIQUE: XR chest 1V portable Frontal view of the chest. CLINICAL INDICATION:Male, 45 years old with history of ng tube placement; FINDINGS: Limited frontal view of the chest for nasogastric tube placement. The nasogastric tube distal tip and side-port project over the gastric lumen. Remainder of exam is unchanged. Endotracheal tube in appro priate position. IMPRESSION: Nasogastric tube now in appropriate position.
[2021-07-21] MEDS: methylPREDNISolone SOD SUCCI 40 MG/ML 1 ML VIAL IV SCH ×3 (00:49→15:22)
[2021-07-21] MEDS: PIPERACILLIN-TAZOBACTAM 3.375 GM in SODIUM CHLORIDE 0.9% 100 ML IVPB SCH ×3 (00:50→15:21)
[2021-07-21] MEDS: INSULIN ASPART (NovoLOG) 100 UNIT/ML VIAL SQ SCH ×4 (01:05→17:53)
[2021-07-21] MEDS: SODIUM PHOSPHATE 10 MMOL in SODIUM CHLORIDE 0.9% 250 ML IVPB SCH (01:37)
[2021-07-21] MEDS: LORazepam 2 MG/ML INJ IV PRN ×2 (03:51→09:27)
[2021-07-21 05:43] LABS: Amorphous Sediment,Urine Rare /hpf; Appearance,Urine Cloudy (Clear); Bilirubin,Urine 1+ (Negative); Blood,Urine Large (Negative); Color,Urine Yellow; Glucose,Urine (UA) 4+ (Negative); Leukocyte Esterase,Urine Negative (Negative); Nitrite,Urine Negative (Negative); PH, Urine 6.5 (5.0-8.0); Protein,Urine 1+ (Negative); RBC,Urine >182 /hpf (0-5); WBC,Urine 3 /hpf (0-5)
[2021-07-21 05:49] LABS: Ketones,Urine 4+ (Negative)
[2021-07-21 06:08] LABS: Glucose,Whole Blood 166 mg/dL (75-99)
--- NOTE | 2021-07-21 06:15 | XR ---
EXAMINATION TYPE: XR chest 1V portable DATE OF EXAM: 07/21/2021 CLINICAL HISTORY: Difficulty breathing progress study. TECHNIQUE: Single AP portable semiupright view of the chest is obtained. COMPARISON: Chest x-ray from one day earlier and older studies. FINDINGS: Stable endotracheal tube and orogastric tubes. Increasing bibasilar opacities. Cardiomegaly redemonstrated. Osseous structures are intact. IMPRESSION: Cardiomegaly with worsening bibasilar acute infiltrate and/or atelectasis and likely smal l to tiny bilateral pleural effusions.
[2021-07-21 06:17] LABS: ABG Base Excess 9.5 mmol/L; ABG HCO3 32 mmol/L (21-25); ABG Oxygen Saturation 96.4 % (94-97); ABG PCO2 40 mmHg (35-45); ABG PH 7.52 (7.35-7.45); ABG PO2 71 mmHg (83-108); ABG TCO2 34 mmol/L (19-24); Allen Test Performed? Yes
[2021-07-21 06:19] LABS: Anisocytosis Slight; Basophils # (A) 0.1 k/uL (0-0.2); Basophils % (A) 1 %; Eosinophils % (A) 0 %; HCT 54.3 % (39.0-53.0); HGB 15.6 gm/dL (13.0-17.5); Hypochromasia Marked; Lymphocytes # (A) 0.5 k/uL (1.0-4.8); Lymphocytes % (A) 5 %; MCH 25.1 pg (25.0-35.0); MCHC 28.8 g/dL (31.0-37.0); MCV 87.2 fL (80.0-100.0); Mean Platelet Volume 7.3; Monocytes # (A) 0.4 k/uL (0-1.0); Monocytes % (A) 4 %; Neutrophils # (A) 9.1 k/uL (1.3-7.7); Neutrophils % (A) 90 %; Platelet Count 229 k/uL (150-450); Poikilocytosis Slight; RBC 6.23 m/uL (4.30-5.90); RDW 16.8 % (11.5-15.5); WBC 10.2 k/uL (3.8-10.6)
[2021-07-21 06:22] LABS: Ionized Calcium 4.9 mg/dL (4.5-5.3)
[2021-07-21 06:29] LABS: ALT 10 U/L (4-49); AST 15 U/L (17-59); African American GFR (CKD) >90 (>60 ml/min/1.73 sqM); Albumin 3.3 g/dL (3.5-5.0); Alkaline Phosphatase 85 U/L (38-126); Anion Gap 8 mmol/L; Blood Urea Nitrogen 35 mg/dL (9-20); Calcium 8.7 mg/dL (8.4-10.2); Carbon Dioxide 31 mmol/L (22-30); Chloride 101 mmol/L (98-107); Glucose 166 mg/dL (74-99); Non-African American GFR(CKD) >90 (>60 ml/min/1.73 sqM); Phosphorus 2.1 mg/dL (2.5-4.5); Potassium 3.8 mmol/L (3.5-5.1); Sodium 140 mmol/L (137-145); Total Bilirubin 0.9 mg/dL (0.2-1.3); Total Protein 5.6 g/dL (6.3-8.2)
[2021-07-21] MEDS ORDERED: Potassium Replacement Protocol 1 EACH MISC MISCELLANE PRN (06:49)
[2021-07-21] MEDS: SODIUM CHLORIDE 0.9% 1,000 ML IV SCH ×2 (07:11→16:29)
[2021-07-21] MEDS: FORMOTEROL FUMARATE 20 MCG/2 ML NEBU INHALATION SCH ×2 (07:30→20:57)
[2021-07-21] MEDS: BUDESONIDE 1 MG/2 ML NEBU INHALATION SCH ×2 (07:30→20:57)
[2021-07-21] MEDS: IPRATROPIUM-ALBUTEROL 3 ML NEB INHALATION SCH ×4 (07:30→20:57)
[2021-07-21] MEDS ORDERED: SODIUM PHOSPHATE 10 MMOL in SODIUM CHLORIDE 0.9% 250 ML IVPB ONE (08:00)
[2021-07-21] MEDS ORDERED: POTASSIUM BICARBONATE/CIT AC 20 MEQ TABLET.EFF NG-TUBE SCH (08:00)
[2021-07-21] MEDS ORDERED: CISATRACURIUM 2 MG/ML 5 ML VIAL IV ONE (08:39)
--- NOTE | 2021-07-21 09:17 | XR ---
EXAMINATION TYPE: XR chest 1V portable DATE OF EXAM: 07/21/2021 CLINICAL HISTORY: Difficulty breathing progress study. TECHNIQUE: Single AP portable supine view of the chest is obtained. COMPARISON: Chest x-ray from earlier today and older studies. FINDINGS: Stable endotracheal and orogastric tubes. New Right internal jugular central venous cathet er terminates cavoatrial junction. No pneumothorax seen. Persistent cardiomegaly with bibasilar opacities. No significant change from earlier today. Osseous s tructures are intact. IMPRESSION: As above.
[2021-07-21] MEDS: CHLORHEXIDINE GLUCONATE 15 ML CUP MUCOUS MEM SCH ×2 (09:20→21:24)
[2021-07-21] MEDS: NICOTINE 21MG/24HR PATCH TRANSDERM SCH (09:20)
[2021-07-21] MEDS: Empagliflozin [Jardiance] PO SCH (09:41)
[2021-07-21] MEDS: ENOXAPARIN 40 MG/0.4 ML SYRINGE SQ SCH (09:41)
[2021-07-21] MEDS: PANTOPRAZOLE 40 MG/10 ML VIAL IVP SCH (09:41)
[2021-07-21] MEDS: METOPROLOL TARTRATE 25 MG TAB PO SCH (10:18)
--- NOTE | 2021-07-21 11:07 | OP ---
OPERATIVE REPORT OPERATIVE REPORT: Placement of a right internal jugular triple-lumen catheter. PREOPERATIVE DIAGNOSIS: Acute hypoxic respiratory failure. POSTOPERATIVE DIAGNOSIS: Acute hypoxic respiratory failure. ANESTHESIA USED: Two mL of 1% lidocaine. PROCEDURE DESCRIPTION: The patient was placed in supine position. The area of the right neck was prepared in a sterile fashion and drapes were applied. The area behind the posterior belly of the sternocleidomastoid muscle was locally anesthetized, and using the posterior approach, the right jugular vein was easily cannulated. A guidewire was placed. Area around the guidewire was dilated, and a triple-lumen catheter was inserted over the guidewire. The guidewire was removed. Good blood flow in the three different ports was noted. No complications noted. Chest x-ray showed adequate placement and no complications. Line was secured using 3.0 silk sutures. MMVARGAS / IJN: [id number] /
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
[2021-07-21 12:12] LABS: Glucose,Whole Blood 152 mg/dL (75-99)
--- NOTE | 2021-07-21 14:37 | P.PN ---
Subjective Progress Note Date: 07/21/21 This is a 45-year-old male who initially was evaluated on [facility] where he was admitted as a court ordered petition for medication adjustments. Patient has a past medical history significant for bipolar type I, ADD, asthma, COPD, diabetes mellitus, hypertension, gastroesophageal reflux disease, spinal bifida with spinal stenosis, patient is a daily smoker since the age of 11, currently smoking 2 packs per day. He denies any alcohol use, denies illicit drug use. States he lives with his mother, uses a wheel chair for transportation. He reportedly has been unable to care for his basic needs, and presents with poor hygiene. He is currently pending psychiatric evaluation. He was transferred to the medical floor as he was found to have significant shortness of breath making it difficult to carry on a conversation. He reports this has been going on at home for 2 weeks now and was evaluated at his PCP's office. He reports 2-3 days ago the shortness of breath worsened and he has clear nasal drainage and congestion. He denies fever or chills. Denies chest pain. Denies nausea, vomiting, diarrhea. Initial diagnostics for admission to [facility] include EKG showing sinus rhythm with a heart rate of 72, there is no ST or T wave abnormalities noted. Lab on admission showing white count 12.1, hemoglobin 17.7, hematocrit is elevated at 60.9. Chemistry panel showing sodium 138, potassium 4.8, CO2 34, BUN 17, creatinine 0.63, glucose of 105. Urinalysis positive for 1+ protein, 4+ glucose, 1+ ketone with occasional mucus. His urine drug toxicology is positive for tricyclic antidepressants, benzodiazepines. Covid is not detected. Chest xray showing new right basilar acute infiltrate and or atelectasis. He was found to be hypoxic on room air in the 90s, reports to not wearing any home oxygen. He required 4-6 L of oxygen to stabilize and was transferred to the medical floor where he was re-evaluated. He was started on IV solu-medrol, and duonebs. Pulmonary services were consulted for evaluation. Patient appears to have worsening hypoxia when sleeping, possibility of an obstructive sleep apnea. He is lethargic today as well, arrousable to voice, stopped the klonopin and decreased seroquel. Final med reqs from psychiatry. D-Dimer negative, procalcitonin 0.08. Influenza A and B also not detected. Current vital signs include heart rate of 90, blood pressure 133/79, 96% on 4L nasal cannula. 07/20/2021 Patient evaluated today on BiPAP. Yesterday afternoon he was quite lethargic, seroquel was decreased down to 25 mg PO HS and klonopin was discontinued for now. Any additional recommendations reguarding his psychiatric medications from psych consultation as patient was on a court order petition for mental health treatment. ABG's were completed yesterday showing pH of 7.25, PCO2 of 92, PO2 of 71, HCO3 of 40, total CO2 43, ox saturation 93.6. He was placed on a 40% fio2 BiPAP. He continues with 1:1 Sitter at the bedside as well. Labs today showing a white count of 15.20, hgb 16.1, hematocrit has improved slightly to 57.4. Sodium 142, potassium 5.4, BUN 19, creat 0.5. Blood glucose is in the 100-90s. We are continuing to hold his home insulin, metformin and actos, and covering with sliding scale as needed. He continues on jardiance. Vital signs today showing temp of 98.1, heart rate 82, blood pressure 128/77, oxygen saturation of 94% on BiPAP. Blood cultures are showing negative. He was started on empiric antibiotic coverage with zosyn today by pulmonary team, he continues also IV steroids which were increased to every 8 hours today, as well as duonebs and pulmicort. Patient was evaluated by pulmonary team today and is being transferred to the ICU this morning for closer monitoring regarding his respiratory status. He is answering questions appropriately, however states he was at his moms house. He is more alert, and moving all extremities with equal strength. He also continues with watery drainage from his eyes. He is complaining of back pain today. 07/21/2021 Patient is evaluated today in the ICU, he was intubated yesterday at 1730, his PCO2 has come down to 40, current fi02 65%. White count today 10.2, sodium 140, potassium 2.8, BUN 35, creat 0.54, blood glucose in the 160s. Critical phosphorous yesterday at 0.7 was replaced and now 2.1, and will receive additional IV phosphorous today. AST 15, albumin 3.3. Patient had hematuria and repeat urinalysis was done showing 1+ protein, 4+glucose, 4+ketones, large blood, 1+bili, >182 RBC. Lovenox was discontinued. Platelet count is stable at 229. He is receiving sedation with propofol. He is also receiving IV ativan and had required haldol for acute agitation. He will be started on a versed infusion for agitation. On IV zosyn, IV solu-medrol, duonebs. He has been started on tube feedings. Continues with 1:1 sitter and followed by psychiatry. He is being followed closely by pulmonary olericulturist services. Unable to complete review of systems as patient is currently intubated. PHYSICAL EXAMINATION: GENERAL: The patient is intubated,. Obese. HEENT: Pupils are round and equally reacting to light. EOMI. Injected sclera improving however eyes are crusting today.. No conjunctival pallor. Normoc ephalic, atraumatic. No pharyngeal erythema. No thyromegaly. Poor dentition. He does wear top dentures which are currently not in place. CARDIOVASCULAR: S1 and S2 present. No murmurs, rubs, or gallops. PULMONARY: Chest is tight, diminished aeration. ABDOMEN: Soft, nontender, nondistended, normoactive bowel sounds. No palpable organomegaly. MUSCULOSKELETAL: No joint swelling or deformity. EXTREMITIES: No cyanosis, clubbing, or pedal edema. NEUROLOGICAL: Intubated unable to complete full neurological exam. SKIN: Generalized rash Assessment and plan Assessment Acute hypoxic and hypercarbic respiratory failure secondary to COPD exacerbation currently intubated in ICU, fio2 65% Leukocytosis Conjunctivitis with eye crusting today History of asthma, COPD History of hypertension Diabetes Mellitus type 2 with hypoglycemia on admission, improved Proteinuria Hematuria, which is resolving possibly due to IDC insertion History Bipolar / ADD History of spina bifida History of spinal stenosis Obesity Chronic daily nicotine use GI Prophylaxis DVT Prophylaxis Full Code Plan Patient is being monitored closely in the ICU Continues on IV zosyn IV steroids, Duonebs, pulmicort He is maintained on propofol infusion and will begin versed infusion today for acute agitation Add antibiotic eye drops Speech evaluation pending Replace electrolytes and follow up with AM labs Continue with 1:1 sitter per psychiatry recommendations The impression and plan of care has been dictated by Isa Driscoll, Nurse Practitioner as directed. Dr. Scar MD I have performed a history and physical examination and medical decision making of this patient, discussed the same with the dictator, and agree with the dictators assessment and plan as written, documented as a scribe. Based on total visit time, I have performed more than 50% of this visit. Objective - Vital Signs Vital signs: Vital Signs Temp 99 F 07/21/21 08:00 Pulse 68 07/21/21 09:00 Resp 16 07/21/21 09:00 BP 125/107 07/21/21 06:00 Pulse Ox 95 07/21/21 09:00 Intake & Output 07/20/21 07/21/21 07/21/21 18:59 06:59 18:59 Intake Total 7727.525 8021.000 300 Output Total 405 630 320 Balance 275.071 5680.000 -20 Weight 101 kg Intake: IV 1100 300 Sodium Chloride 0.9% 1, 1100 300 000 ml @ 100 mls/hr IV . Q10H [facility]INCE Rx#:[id number] Intake, IV Titration 9849.193 3687.000 Amount Dexmedetomidine/0.9% NaCl 59.202 (Pmx) 400 mcg In Empty Bag 1 bag @ 0.2 MCG/KG/HR 4.863 mls/hr IV .[id number] VINCE Rx#:[id number] Piperacillin-Tazobactam 3 200 .375 gm In Sodium Chloride 0.9% 100 ml @ 25 mls/hr IVPB Q8HR [facility]INCE Rx# :[id number] Sodium Chloride 0.9% 1, 400 000 ml @ 100 mls/hr IV . Q10H [facility]INCE Rx#:[id number] Sodium Chloride 0.9% 1, 600 000 ml @ 100 mls/hr IV . Q10H [facility]INCE Rx#:[id number] Sodium Phosphate 10 mmol 750 In Sodium Chloride 0.9% 250 ml @ 125 mls/hr IVPB Q2H [facility]INCE Rx#:[id number] propofoL 1,000 mg In 400.000 Empty Bag 1 bag @ 5 MCG/ KG/MIN 2.918 mls/hr IV . Q24H VINCE Rx#:[id number] Output: Gastric Drainage 200 Urine 405 630 120 Other: Voiding Method Indwelling Catheter Indwelling Catheter ABP, PAP, CO, CI - Last Documented Arterial Blood Pressure 149/61 - Labs CBC & Chem 7: 07/21/21 06:08 07/21/21 06:08 Labs: Abnormal Lab Results - Last 24 Hours (Table) 07/20/21 07/20/21 07/20/21 Range/Units 11:16 11:51 16:35 RBC (4.30-5.90) m/uL Hct (39.0-53.0) % MCHC (31.0-37.0) g/dL RDW (11.5-15.5) % Neutrophils # (1.3-7.7) k/uL Lymphocytes # (1.0-4.8) k/uL ABG pH 7.33 L 7.32 L (7.35-7.45) ABG pCO2 75 H* 78 H* (35-45) mmHg ABG pO2 74 L 78 L (83-108) mmHg ABG HCO3 39 H 40 H* (21-25) mmol/L ABG Total CO2 41 H 43 H (19-24) mmol/L ABG O2 Saturation (94-97) % Carbon Dioxide (22-30) mmol/L BUN (9-20) mg/dL Creatinine (0.66-1.25) mg/dL Glucose (74-99) mg/dL POC Glucose (mg/dL) 113 H (75-99) mg/dL Phosphorus (2.5-4.5) mg/dL AST (17-59) U/L Total Protein (6.3-8.2) g/dL Albumin (3.5-5.0) g/dL Ur Specific Wolsey (1.001-1.035) Urine Protein (Negative) Urine Glucose (UA) (Negative) Urine Ketones (Negative) Urine Blood (Negative) Urine Bilirubin (Negative) Urine RBC (0-5) /hpf Amorphous Sediment (None) /hpf 07/20/21 07/20/21 07/20/21 Range/Units 18:41 18:43 19:50 RBC (4.30-5.90) m/uL Hct (39.0-53.0) % MCHC (31.0-37.0) g/dL RDW (11.5-15.5) % Neutrophils # (1.3-7.7) k/uL Lymphocytes # (1.0-4.8) k/uL ABG pH (7.35-7.45) ABG pCO2 53 H (35-45) mmHg ABG pO2 176 H (83-108) mmHg ABG HCO3 36 H (21-25) mmol/L ABG Total CO2 38 H (19-24) mmol/L ABG O2 Saturation 99.4 H (94-97) % Carbon Dioxide (22-30) mmol/L BUN (9-20) mg/dL Creatinine (0.66-1.25) mg/dL Glucose (74-99) mg/dL POC Glucose (mg/dL) 149 H (75-99) mg/dL Phosphorus 0.7 L* (2.5-4.5) mg/dL AST (17-59) U/L Total Protein (6.3-8.2) g/dL Albumin (3.5-5.0) g/dL Ur Specific Wolsey (1.001-1.035) Urine Protein (Negative) Urine Glucose (UA) (Negative) Urine Ketones (Negative) Urine Blood (Negative) Urine Bilirubin (Negative) Urine RBC (0-5) /hpf Amorphous Sediment (None) /hpf 07/20/21 07/20/21 07/21/21 Range/Units 21:14 22:06 04:50 RBC (4.30-5.90) m/uL Hct (39.0-53.0) % MCHC (31.0-37.0) g/dL RDW (11.5-15.5) % Neutrophils # (1.3-7.7) k/uL Lymphocytes # (1.0-4.8) k/uL ABG pH (7.35-7.45) ABG pCO2 (35-45) mmHg ABG pO2 (83-108) mmHg ABG HCO3 (21-25) mmol/L ABG Total CO2 (19-24) mmol/L ABG O2 Saturation (94-97) % Carbon Dioxide (22-30) mmol/L BUN (9-20) mg/dL Creatinine (0.66-1.25) mg/dL Glucose (74-99) mg/dL POC Glucose (mg/dL) 141 H 140 H (75-99) mg/dL Phosphorus (2.5-4.5) mg/dL AST (17-59) U/L Total Protein (6.3-8.2) g/dL Albumin (3.5-5.0) g/dL Ur Specific Wolsey 1.050 H (1.001-1.035) Urine Protein 1+ H (Negative) Urine Glucose (UA) 4+ H (Negative) Urine Ketones 4+ H (Negative) Urine Blood Large H (Negative) Urine Bilirubin 1+ H (Negative) Urine RBC >182 H (0-5) /hpf Amorphous Sediment Rare H (None) /hpf 07/21/21 07/21/21 07/21/21 Range/Units 06:07 06:08 06:08 RBC 6.23 H (4.30-5.90) m/uL Hct 54.3 H (39.0-53.0) % MCHC 28.8 L (31.0-37.0) g/dL RDW 16.8 H (11.5-15.5) % Neutrophils # 9.1 H (1.3-7.7) k/uL Lymphocytes # 0.5 L (1.0-4.8) k/uL ABG pH (7.35-7.45) ABG pCO2 (35-45) mmHg ABG pO2 (83-108) mmHg ABG HCO3 (21-25) mmol/L ABG Total CO2 (19-24) mmol/L ABG O2 Saturation (94-97) % Carbon Dioxide 31 H (22-30) mmol/L BUN 35 H (9-20) mg/dL Creatinine 0.54 L (0.66-1.25) mg/dL Glucose 166 H (74-99) mg/dL POC Glucose (mg/dL) 166 H (75-99) mg/dL Phosphorus 2.1 L (2.5-4.5) mg/dL AST 15 L (17-59) U/L Total Protein 5.6 L (6.3-8.2) g/dL Albumin 3.3 L (3.5-5.0) g/dL Ur Specific Wolsey (1.001-1.035) Urine Protein (Negative) Urine Glucose (UA) (Negative) Urine Ketones (Negative) Urine Blood (Negative) Urine Bilirubin (Negative) Urine RBC (0-5) /hpf Amorphous Sediment (None) /hpf 07/21/21 Range/Units 06:10 RBC (4.30-5.90) m/uL Hct (39.0-53.0) % MCHC (31.0-37.0) g/dL RDW (11.5-15.5) % Neutrophils # (1.3-7.7) k/uL Lymphocytes # (1.0-4.8) k/uL ABG pH 7.52 H (7.35-7.45) ABG pCO2 (35-45) mmHg ABG pO2 71 L (83-108) mmHg ABG HCO3 32 H (21-25) mmol/L ABG Total CO2 34 H (19-24) mmol/L ABG O2 Saturation (94-97) % Carbon Dioxide (22-30) mmol/L BUN (9-20) mg/dL Creatinine (0.66-1.25) mg/dL Glucose (74-99) mg/dL POC Glucose (mg/dL) (75-99) mg/dL Phosphorus (2.5-4.5) mg/dL AST (17-59) U/L Total Protein (6.3-8.2) g/dL Albumin (3.5-5.0) g/dL Ur Specific Wolsey (1.001-1.035) Urine Protein (Negative) Urine Glucose (UA) (Negative) Urine Ketones (Negative) Urine Blood (Negative) Urine Bilirubin (Negative) Urine RBC (0-5) /hpf Amorphous Sediment (None) /hpf Microbiology - Last 24 Hours (Table) 07/20/21 20:35 Gram Stain - Preliminary Sputum Sputum Culture - Preliminary 07/18/21 16:54 Blood Culture - Preliminary Blood No Growth after 48 hours 07/18/21 16:45 Blood Culture - Preliminary Blood No Growth after 48 hours Assessment and Plan Time with Patient: Less than 30
[2021-07-21] MEDS: MIDAZOLAM HCL 50 MG in SODIUM CHLORIDE 0.9% 40 ML IV SCH ×2 (15:22→22:44)
[2021-07-21] MEDS: POLYMYXIN B-TRIMETHOPRIM SULF (10,000-1) OPHTH DROPS 10 ML BTL BOTH EYES SCH ×2 (15:27→20:52)
[2021-07-21] MEDS: CLEVIDIPINE BUTYRATE 25 MG in EMPTY BAG 1 BAG IV SCH (17:10)
[2021-07-21 17:47] LABS: Glucose,Whole Blood 143 mg/dL (75-99)
[2021-07-21 20:29] LABS: Potassium 3.5 mmol/L (3.5-5.1)
[2021-07-21] MEDS: ATORVASTATIN 20 MG TAB PO SCH (21:24)
[2021-07-22 00:02] LABS: Glucose,Whole Blood 137 mg/dL (75-99)
[2021-07-22] MEDS: PIPERACILLIN-TAZOBACTAM 3.375 GM in SODIUM CHLORIDE 0.9% 100 ML IVPB SCH ×3 (00:26→16:03)
[2021-07-22] MEDS: POLYMYXIN B-TRIMETHOPRIM SULF (10,000-1) OPHTH DROPS 10 ML BTL BOTH EYES SCH ×6 (00:26→21:58)
[2021-07-22] MEDS: methylPREDNISolone SOD SUCCI 40 MG/ML 1 ML VIAL IV SCH ×3 (00:27→16:03)
[2021-07-22] MEDS: INSULIN ASPART (NovoLOG) 100 UNIT/ML VIAL SQ SCH ×4 (00:27→18:41)
[2021-07-22] MEDS: POTASSIUM BICARBONATE/CIT AC 20 MEQ TABLET.EFF NG-TUBE SCH ×2 (01:04→02:12)
[2021-07-22] MEDS: SODIUM CHLORIDE 0.9% 1,000 ML IV SCH ×4 (02:38→22:56)
[2021-07-22 05:50] LABS: Glucose,Whole Blood 147 mg/dL (75-99)
[2021-07-22] MEDS: CLEVIDIPINE BUTYRATE 25 MG in EMPTY BAG 1 BAG IV SCH ×3 (05:56→21:26)
[2021-07-22 06:09] LABS: ABG Base Excess 9.1 mmol/L; ABG HCO3 33 mmol/L (21-25); ABG Oxygen Saturation 98.9 % (94-97); ABG PCO2 49 mmHg (35-45); ABG PH 7.44 (7.35-7.45); ABG PO2 121 mmHg (83-108); ABG TCO2 35 mmol/L (19-24); Allen Test Performed? Yes
[2021-07-22 06:10] LABS: ALT 7 U/L (4-49); AST 12 U/L (17-59); African American GFR (CKD) >90 (>60 ml/min/1.73 sqM); Alkaline Phosphatase 68 U/L (38-126); Anion Gap 4 mmol/L; Blood Urea Nitrogen 36 mg/dL (9-20); Calcium 8.7 mg/dL (8.4-10.2); Carbon Dioxide 33 mmol/L (22-30); Chloride 104 mmol/L (98-107); Glucose 162 mg/dL (74-99); Non-African American GFR(CKD) >90 (>60 ml/min/1.73 sqM); Phosphorus 2.7 mg/dL (2.5-4.5); Potassium 4.1 mmol/L (3.5-5.1); Sodium 141 mmol/L (137-145); Total Bilirubin 0.8 mg/dL (0.2-1.3); Total Protein 5.4 g/dL (6.3-8.2)
[2021-07-22 06:14] LABS: Anisocytosis Slight; Basophils % (A) 0 %; Eosinophils % (A) 0 %; HCT 53.6 % (39.0-53.0); Hypochromasia Marked; Lymphocytes # (A) 0.3 k/uL (1.0-4.8); Lymphocytes % (A) 5 %; MCH 25.6 pg (25.0-35.0); MCHC 29.8 g/dL (31.0-37.0); MCV 85.7 fL (80.0-100.0); Mean Platelet Volume 7.1; Monocytes # (A) 0.3 k/uL (0-1.0); Monocytes % (A) 4 %; Neutrophils # (A) 6.7 k/uL (1.3-7.7); Neutrophils % (A) 90 %; Platelet Count 226 k/uL (150-450); Poikilocytosis Slight; RBC 6.26 m/uL (4.30-5.90); RDW 17.5 % (11.5-15.5); WBC 7.4 k/uL (3.8-10.6)
[2021-07-22] MEDS: MIDAZOLAM HCL 50 MG in SODIUM CHLORIDE 0.9% 40 ML IV SCH ×2 (07:02→17:50)
--- NOTE | 2021-07-22 07:04 | XR ---
EXAMINATION TYPE: XR chest 1V portable DATE OF EXAM: 07/22/2021 CLINICAL HISTORY: Difficulty breathing progress study. TECHNIQUE: Single AP portable semiupright view of the chest is obtained. COMPARISON: Chest x-ray from one day earlier and older studies FINDINGS: Stable endotracheal and orogastric tubes. Stable Right internal jugular central venous cat heter. Persistent cardiomegaly with bibasilar opacities. Osseous structures are intact. IMPRESSION: Cardiomegaly with persistent bibasilar acute infiltrates and/or atelectasis and likely sm all to tiny bilateral pleural effusions. No significant change from one day earlier.
[2021-07-22] MEDS: BUDESONIDE 1 MG/2 ML NEBU INHALATION SCH ×2 (07:27→19:24)
[2021-07-22] MEDS: FORMOTEROL FUMARATE 20 MCG/2 ML NEBU INHALATION SCH ×2 (07:27→19:25)
[2021-07-22] MEDS: IPRATROPIUM-ALBUTEROL 3 ML NEB INHALATION SCH ×4 (07:27→19:25)
[2021-07-22] MEDS: PANTOPRAZOLE 40 MG/10 ML VIAL IVP SCH (08:40)
[2021-07-22] MEDS: ENOXAPARIN 40 MG/0.4 ML SYRINGE SQ SCH (08:40)
[2021-07-22] MEDS: CHLORHEXIDINE GLUCONATE 15 ML CUP MUCOUS MEM SCH ×2 (08:40→21:59)
[2021-07-22] MEDS: NICOTINE 21MG/24HR PATCH TRANSDERM SCH (08:41)
[2021-07-22] MEDS ORDERED: LACTULOSE 20 GM/30 ML CUP PO ONE (11:00)
[2021-07-22 11:51] LABS: Glucose,Whole Blood 131 mg/dL (75-99)
--- NOTE | 2021-07-22 12:03 | P.PN ---
Subjective Progress Note Date: 07/22/21 This is a 45-year-old male who initially was evaluated on [facility] where he was admitted as a court ordered petition for medication adjustments. Patient has a past medical history significant for bipolar type I, ADD, asthma, COPD, diabetes mellitus, hypertension, gastroesophageal reflux disease, spinal bifida with spinal stenosis, patient is a daily smoker since the age of 11, currently smoking 2 packs per day. He denies any alcohol use, denies illicit drug use. States he lives with his mother, uses a wheel chair for transportation. He reportedly has been unable to care for his basic needs, and presents with poor hygiene. He is currently pending psychiatric evaluation. He was transferred to the medical floor as he was found to have significant shortness of breath making it difficult to carry on a conversation. He reports this has been going on at home for 2 weeks now and was evaluated at his PCP's office. He reports 2-3 days ago the shortness of breath worsened and he has clear nasal drainage and congestion. He denies fever or chills. Denies chest pain. Denies nausea, vomiting, diarrhea. Initial diagnostics for admission to [facility] include EKG showing sinus rhythm with a heart rate of 72, there is no ST or T wave abnormalities noted. Lab on admission showing white count 12.1, hemoglobin 17.7, hematocrit is elevated at 60.9. Chemistry panel showing sodium 138, potassium 4.8, CO2 34, BUN 17, creatinine 0.63, glucose of 105. Urinalysis positive for 1+ protein, 4+ glucose, 1+ ketone with occasional mucus. His urine drug toxicology is positive for tricyclic antidepressants, benzodiazepines. Covid is not detected. Chest xray showing new right basilar acute infiltrate and or atelectasis. He was found to be hypoxic on room air in the 90s, reports to not wearing any home oxygen. He required 4-6 L of oxygen to stabilize and was transferred to the medical floor where he was re-evaluated. He was started on IV solu-medrol, and duonebs. Pulmonary services were consulted for evaluation. Patient appears to have worsening hypoxia when sleeping, possibility of an obstructive sleep apnea. He is lethargic today as well, arrousable to voice, stopped the klonopin and decreased seroquel. Final med reqs from psychiatry. D-Dimer negative, procalcitonin 0.08. Influenza A and B also not detected. Current vital signs include heart rate of 90, blood pressure 133/79, 96% on 4L nasal cannula. 07/20/2021 Patient evaluated today on BiPAP. Yesterday afternoon he was quite lethargic, seroquel was decreased down to 25 mg PO HS and klonopin was discontinued for now. Any additional recommendations reguarding his psychiatric medications from psych consultation as patient was on a court order petition for mental health treatment. ABG's were completed yesterday showing pH of 7.25, PCO2 of 92, PO2 of 71, HCO3 of 40, total CO2 43, ox saturation 93.6. He was placed on a 40% fio2 BiPAP. He continues with 1:1 Sitter at the bedside as well. Labs today showing a white count of 15.20, hgb 16.1, hematocrit has improved slightly to 57.4. Sodium 142, potassium 5.4, BUN 19, creat 0.5. Blood glucose is in the 100-90s. We are continuing to hold his home insulin, metformin and actos, and covering with sliding scale as needed. He continues on jardiance. Vital signs today showing temp of 98.1, heart rate 82, blood pressure 128/77, oxygen saturation of 94% on BiPAP. Blood cultures are showing negative. He was started on empiric antibiotic coverage with zosyn today by pulmonary team, he continues also IV steroids which were increased to every 8 hours today, as well as duonebs and pulmicort. Patient was evaluated by pulmonary team today and is being transferred to the ICU this morning for closer monitoring regarding his respiratory status. He is answering questions appropriately, however states he was at his moms house. He is more alert, and moving all extremities with equal strength. He also continues with watery drainage from his eyes. He is complaining of back pain today. 07/21/2021 Patient is evaluated today in the ICU, he was intubated yesterday at 1730, his PCO2 has come down to 40, current fi02 65%. White count today 10.2, sodium 140, potassium 2.8, BUN 35, creat 0.54, blood glucose in the 160s. Critical phosphorous yesterday at 0.7 was replaced and now 2.1, and will receive additional IV phosphorous today. AST 15, albumin 3.3. Patient had hematuria and repeat urinalysis was done showing 1+ protein, 4+glucose, 4+ketones, large blood, 1+bili, >182 RBC. Lovenox was discontinued. Platelet count is stable at 229. He is receiving sedation with propofol. He is also receiving IV ativan and had required haldol for acute agitation. He will be started on a versed infusion for agitation. On IV zosyn, IV solu-medrol, duonebs. He has been started on tube feedings. Continues with 1:1 sitter and followed by psychiatry. He is being followed closely by pulmonary still worker helper services. 07/22/2021 Patient evaluated today in the ICU on 50% FiO2, he continues on propofol cleviprex and versed infusion. No BM since the although he has not had much oral intake. Will give a one time dose of lactulose today, and he continues on tube feedings at rate of 20 pending dietary evaluation tomorrow as there is no goal documented. Labs today showing white count 7.4, platelets 226, hgb 16.0, hct 53.6. Sodium 141, potassium 4.1, BUN 36, creat 0.46, blood glucose 131. AST 12, albumin 3.0. BNP 886. Chest xray today showing cardiomegaly, persistent bilateral acute infiltrates and or atelectasis and likely small tiny bilateral pleural effusions. Stable from one day earlier. He has remained afebrile, heart rate 60's, blood pressure 136/57, 95% on room air. Sputum culture and blood culture pending. He is on IV zosyn. Urine output is about 27 mls per hour in the last 24 hours, urine is brown in color, although creat is low normal. He continues on IV fluids at 100 mls per hour. Unable to complete review of systems as patient is currently intubated. PHYSICAL EXAMINATION: GENERAL: The patient is intubated,. Obese. HEENT: Pupils are round and equally reacting to light. EOMI. Injected sclera improving however eyes are crusting today.. No conjunctival pallor. Normocephali c, atraumatic. No pharyngeal erythema. No thyromegaly. Poor dentition. He does wear top dentures which are currently not in place. CARDIOVASCULAR: S1 and S2 present. No murmurs, rubs, or gallops. PULMONARY: Chest is tight, diminished aeration. ABDOMEN: Soft, nontender, nondistended, normoactive bowel sounds. No palpable organomegaly. MUSCULOSKELETAL: No joint swelling or deformity. EXTREMITIES: No cyanosis, clubbing, or pedal edema. NEUROLOGICAL: Intubated unable to complete full neurological exam. SKIN: Generalized rash Assessment and plan Assessment Acute hypoxic and hypercarbic respiratory failure secondary to COPD exacerbation currently intubated in ICU, fio2 50% Conjunctivitis with eye crusting today History of asthma, COPD History of hypertension Diabetes Mellitus type 2 with hypoglycemia on admission, improved Proteinuria Hematuria, which is resolving possibly due to IDC insertion History Bipolar / ADD History of spina bifida History of spinal stenosis Obesity Chronic daily nicotine use GI Prophylaxis DVT Prophylaxis Full Code Plan Patient is being monitored closely in the ICU Continues on IV zosyn IV steroids, Duonebs, pulmicort Continue all other supportive care Speech evaluation pending Replace electrolytes and follow up with AM labs Follow up cultures Continue with 1:1 sitter per psychiatry recommendations The impression and plan of care has been dictated by Isa Driscoll, Nurse Practitioner as directed. Dr. Scar MD I have performed a history and physical examination and medical decision making of this patient, discussed the same with the dictator, and agree with the dictators assessment and plan as written, documented as a scribe. Based on total visit time, I have performed more than 50% of this visit. Objective - Vital Signs Vital signs: Vital Signs Temp 98.7 F 07/22/21 08:00 Pulse 61 07/22/21 11:34 Resp 16 07/22/21 11:00 BP 133/78 07/22/21 07:00 Pulse Ox 95 07/22/21 11:00 Intake & Output 07/21/21 07/22/21 07/22/21 18:59 06:59 18:59 Intake Total 2215.497 2090.312 850.463 Output Total 660 550 275 Balance 0518.760 9824.312 575.463 Weight 101 kg 105.7 kg Intake: IV 1883 1336 515 Piperacillin-Tazobactam 3 200 100 .375 gm In Sodium Chloride 0.9% 100 ml @ 25 mls/hr IVPB Q8HR [facility] Rx# :[id number] Pressure Bag (0.9 Sodium 33 36 15 Chloride) Sodium Chloride 0.9% 1, 300 000 ml @ 100 mls/hr IV . Q10H [facility] Rx#:[id number] Sodium Chloride 0.9% 1, 1100 1200 500 000 ml @ 100 mls/hr IV . Q10H [facility] Rx#:[id number] Sodium Phosphate 10 mmol 250 In Sodium Chloride 0.9% 250 ml @ 125 mls/hr IVPB ONCE ONE Rx#:[id number] Intake, IV Titration 302.497 454.312 205.463 Amount Clevidipine Butyrate 25 3.567 31.200 mg In Empty Bag 1 bag @ 1 MG/HR 2 mls/hr IV .Q24H [facility] Rx#:[id number] Midazolam HCl 50 mg In 6.567 24.5 41.5 Sodium Chloride 0.9% 40 ml @ 1 MG/HR 1 mls/hr IV .Q24H [facility] Rx#:[id number] propofoL 1,000 mg In 292.363 398.612 163.963 Empty Bag 1 bag @ 5 MCG/ KG/MIN 2.918 mls/hr IV . Q24H [facility] Rx#:[id number] Tube Feeding 30 230 100 Other 70 30 Output: Gastric Drainage 250 Urine 410 550 275 Other: Voiding Method Indwelling Catheter Indwelling Catheter Indwelling Catheter ABP, PAP, CO, CI - Last Documented Arterial Blood Pressure 136/57 - Labs CBC & Chem 7: 07/22/21 05:42 07/22/21 05:42 Labs: Abnormal Lab Results - Last 24 Hours (Table) 07/21/21 07/21/21 07/22/21 Range/Units 12:10 17:46 00:00 RBC (4.30-5.90) m/uL Hct (39.0-53.0) % MCHC (31.0-37.0) g/dL RDW (11.5-15.5) % Lymphocytes # (1.0-4.8) k/uL ABG pCO2 (35-45) mmHg ABG pO2 (83-108) mmHg ABG HCO3 (21-25) mmol/L ABG Total CO2 (19-24) mmol/L ABG O2 Saturation (94-97) % Carbon Dioxide (22-30) mmol/L BUN (9-20) mg/dL Creatinine (0.66-1.25) mg/dL Glucose (74-99) mg/dL POC Glucose (mg/dL) 152 H 143 H 137 H (75-99) mg/dL AST (17-59) U/L Total Protein (6.3-8.2) g/dL Albumin (3.5-5.0) g/dL 07/22/21 07/22/21 07/22/21 Range/Units 05:42 05:42 05:48 RBC 6.26 H (4.30-5.90) m/uL Hct 53.6 H (39.0-53.0) % MCHC 29.8 L (31.0-37.0) g/dL RDW 17.5 H (11.5-15.5) % Lymphocytes # 0.3 L (1.0-4.8) k/uL ABG pCO2 (35-45) mmHg ABG pO2 (83-108) mmHg ABG HCO3 (21-25) mmol/L ABG Total CO2 (19-24) mmol/L ABG O2 Saturation (94-97) % Carbon Dioxide 33 H (22-30) mmol/L BUN 36 H (9-20) mg/dL Creatinine 0.46 L (0.66-1.25) mg/dL Glucose 162 H (74-99) mg/dL POC Glucose (mg/dL) 147 H (75-99) mg/dL AST 12 L (17-59) U/L Total Protein 5.4 L (6.3-8.2) g/dL Albumin 3.0 L (3.5-5.0) g/dL 07/22/21 Range/Units 05:58 RBC (4.30-5.90) m/uL Hct (39.0-53.0) % MCHC (31.0-37.0) g/dL RDW (11.5-15.5) % Lymphocytes # (1.0-4.8) k/uL ABG pCO2 49 H (35-45) mmHg ABG pO2 121 H (83-108) mmHg ABG HCO3 33 H (21-25) mmol/L ABG Total CO2 35 H (19-24) mmol/L ABG O2 Saturation 98.9 H (94-97) % Carbon Dioxide (22-30) mmol/L BUN (9-20) mg/dL Creatinine (0.66-1.25) mg/dL Glucose (74-99) mg/dL POC Glucose (mg/dL) (75-99) mg/dL AST (17-59) U/L Total Protein (6.3-8.2) g/dL Albumin (3.5-5.0) g/dL Microbiology - Last 24 Hours (Table) 07/18/21 16:45 Blood Culture - Preliminary Blood No Growth after 72 hours 07/18/21 16:54 Blood Culture - Preliminary Blood No Growth after 72 hours 07/20/21 20:35 Gram Stain - Preliminary Sputum Sputum Culture - Preliminary Assessment and Plan Time with Patient: Less than 30
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
[2021-07-22 17:48] LABS: Glucose,Whole Blood 144 mg/dL (75-99)
[2021-07-22] MEDS: ATORVASTATIN 20 MG TAB PO SCH (21:59)
[2021-07-23 00:24] LABS: Glucose,Whole Blood 146 mg/dL (75-99)
[2021-07-23] MEDS: INSULIN ASPART (NovoLOG) 100 UNIT/ML VIAL SQ SCH ×5 (00:31→23:30)
[2021-07-23] MEDS: methylPREDNISolone SOD SUCCI 40 MG/ML 1 ML VIAL IV SCH ×3 (00:32→20:17)
[2021-07-23] MEDS: PIPERACILLIN-TAZOBACTAM 3.375 GM in SODIUM CHLORIDE 0.9% 100 ML IVPB SCH ×4 (00:33→23:15)
[2021-07-23] MEDS: POLYMYXIN B-TRIMETHOPRIM SULF (10,000-1) OPHTH DROPS 10 ML BTL BOTH EYES SCH ×7 (00:33→23:15)
[2021-07-23] MEDS: SODIUM CHLORIDE 0.9% 1,000 ML IV SCH ×2 (02:18→17:46)
[2021-07-23 05:17] LABS: Glucose,Whole Blood 157 mg/dL (75-99)
[2021-07-23 05:52] LABS: ABG Base Excess 8.8 mmol/L; ABG HCO3 33 mmol/L (21-25); ABG Oxygen Saturation 97.3 % (94-97); ABG PCO2 51 mmHg (35-45); ABG PH 7.43 (7.35-7.45); ABG PO2 90 mmHg (83-108); ABG TCO2 35 mmol/L (19-24); Allen Test Performed? Yes
[2021-07-23 06:12] LABS: Glucose,Whole Blood 147 mg/dL (75-99)
[2021-07-23 06:41] LABS: Anisocytosis Slight; Basophils % (A) 0 %; Eosinophils % (A) 0 %; HCT 54.5 % (39.0-53.0); Hypochromasia Marked; Lymphocytes # (A) 0.3 k/uL (1.0-4.8); Lymphocytes % (A) 4 %; MCH 25.5 pg (25.0-35.0); MCHC 29.3 g/dL (31.0-37.0); Mean Platelet Volume 7.4; Monocytes # (A) 0.3 k/uL (0-1.0); Monocytes % (A) 4 %; Neutrophils # (A) 7.9 k/uL (1.3-7.7); Neutrophils % (A) 92 %; Platelet Count 205 k/uL (150-450); Poikilocytosis Slight; RBC 6.27 m/uL (4.30-5.90); RDW 17.1 % (11.5-15.5); WBC 8.6 k/uL (3.8-10.6)
[2021-07-23 06:43] LABS: ALT 7 U/L (4-49); AST 12 U/L (17-59); African American GFR (CKD) >90 (>60 ml/min/1.73 sqM); Alkaline Phosphatase 65 U/L (38-126); Anion Gap 4 mmol/L; Blood Urea Nitrogen 35 mg/dL (9-20); Calcium 8.4 mg/dL (8.4-10.2); Carbon Dioxide 32 mmol/L (22-30); Chloride 106 mmol/L (98-107); Glucose 160 mg/dL (74-99); Non-African American GFR(CKD) >90 (>60 ml/min/1.73 sqM); Potassium 4.3 mmol/L (3.5-5.1); Sodium 142 mmol/L (137-145); Total Bilirubin 0.7 mg/dL (0.2-1.3); Total Protein 5.4 g/dL (6.3-8.2)
[2021-07-23] MEDS: FORMOTEROL FUMARATE 20 MCG/2 ML NEBU INHALATION SCH ×2 (07:45→19:26)
[2021-07-23] MEDS: IPRATROPIUM-ALBUTEROL 3 ML NEB INHALATION SCH ×4 (07:45→19:26)
[2021-07-23] MEDS: BUDESONIDE 1 MG/2 ML NEBU INHALATION SCH ×2 (07:45→19:26)
--- NOTE | 2021-07-23 08:01 | XR ---
EXAMINATION TYPE: XR chest 1V portable DATE OF EXAM: 07/23/2021 COMPARISON: Chest x-ray 07/22/2021 HISTORY: Intubated TECHNIQUE: Single frontal view of the chest is obtained. FINDINGS: Endotracheal tube and NG tube are overlying appropriate positions. Patient is rotated. Rig ht jugular central venous catheter is noted, distal tip is overlying the cavoatrial junction level. P atient is rotated. No evident pneumothorax. Bibasilar increased attenuation persists. There are overl valeria leads. Cardiac mediastinal silhouette is likely stable accounting for differences in technique. IMPRESSION: Basilar atelectasis versus pneumonia, difficult to exclude small effusions.
[2021-07-23] MEDS: MIDAZOLAM HCL 50 MG in SODIUM CHLORIDE 0.9% 40 ML IV SCH (08:15)
[2021-07-23] MEDS: NICOTINE 21MG/24HR PATCH TRANSDERM SCH (08:44)
[2021-07-23] MEDS: CHLORHEXIDINE GLUCONATE 15 ML CUP MUCOUS MEM SCH ×2 (08:44→20:17)
[2021-07-23] MEDS: PANTOPRAZOLE 40 MG/10 ML VIAL IVP SCH (08:45)
[2021-07-23] MEDS: ENOXAPARIN 40 MG/0.4 ML SYRINGE SQ SCH (08:45)
[2021-07-23] MEDS ORDERED: FUROSEMIDE 10 MG/ML 4 ML VIAL IV SCH (09:30)
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
[2021-07-23] MEDS: CLEVIDIPINE BUTYRATE 25 MG in EMPTY BAG 1 BAG IV SCH ×4 (10:06→21:24)
[2021-07-23 11:42] LABS: Glucose,Whole Blood 142 mg/dL (75-99)
[2021-07-23] MEDS: clonazePAM 1 MG TAB PO SCH ×3 (12:03→23:15)
--- NOTE | 2021-07-23 15:20 | P.PN ---
Subjective Progress Note Date: 07/23/21 This is a 45-year-old male who initially was evaluated on [facility] where he was admitted as a court ordered petition for medication adjustments. Patient has a past medical history significant for bipolar type I, ADD, asthma, COPD, diabetes mellitus, hypertension, gastroesophageal reflux disease, spinal bifida with spinal stenosis, patient is a daily smoker since the age of 11, currently smoking 2 packs per day. He denies any alcohol use, denies illicit drug use. States he lives with his mother, uses a wheel chair for transportation. He reportedly has been unable to care for his basic needs, and presents with poor hygiene. He is currently pending psychiatric evaluation. He was transferred to the medical floor as he was found to have significant shortness of breath making it difficult to carry on a conversation. He reports this has been going on at home for 2 weeks now and was evaluated at his PCP's office. He reports 2-3 days ago the shortness of breath worsened and he has clear nasal drainage and congestion. He denies fever or chills. Denies chest pain. Denies nausea, vomiting, diarrhea. Initial diagnostics for admission to [facility] include EKG showing sinus rhythm with a heart rate of 72, there is no ST or T wave abnormalities noted. Lab on admission showing white count 12.1, hemoglobin 17.7, hematocrit is elevated at 60.9. Chemistry panel showing sodium 138, potassium 4.8, CO2 34, BUN 17, creatinine 0.63, glucose of 105. Urinalysis positive for 1+ protein, 4+ glucose, 1+ ketone with occasional mucus. His urine drug toxicology is positive for tricyclic antidepressants, benzodiazepines. Covid is not detected. Chest xray showing new right basilar acute infiltrate and or atelectasis. He was found to be hypoxic on room air in the 90s, reports to not wearing any home oxygen. He required 4-6 L of oxygen to stabilize and was transferred to the medical floor where he was re-evaluated. He was started on IV solu-medrol, and duonebs. Pulmonary services were consulted for evaluation. Patient appears to have worsening hypoxia when sleeping, possibility of an obstructive sleep apnea. He is lethargic today as well, arrousable to voice, stopped the klonopin and decreased seroquel. Final med reqs from psychiatry. D-Dimer negative, procalcitonin 0.08. Influenza A and B also not detected. Current vital signs include heart rate of 90, blood pressure 133/79, 96% on 4L nasal cannula. 07/20/2021 Patient evaluated today on BiPAP. Yesterday afternoon he was quite lethargic, seroquel was decreased down to 25 mg PO HS and klonopin was discontinued for now. Any additional recommendations reguarding his psychiatric medications from psych consultation as patient was on a court order petition for mental health treatment. ABG's were completed yesterday showing pH of 7.25, PCO2 of 92, PO2 of 71, HCO3 of 40, total CO2 43, ox saturation 93.6. He was placed on a 40% fio2 BiPAP. He continues with 1:1 Sitter at the bedside as well. Labs today showing a white count of 15.20, hgb 16.1, hematocrit has improved slightly to 57.4. Sodium 142, potassium 5.4, BUN 19, creat 0.5. Blood glucose is in the 100-90s. We are continuing to hold his home insulin, metformin and actos, and covering with sliding scale as needed. He continues on jardiance. Vital signs today showing temp of 98.1, heart rate 82, blood pressure 128/77, oxygen saturation of 94% on BiPAP. Blood cultures are showing negative. He was started on empiric antibiotic coverage with zosyn today by pulmonary team, he continues also IV steroids which were increased to every 8 hours today, as well as duonebs and pulmicort. Patient was evaluated by pulmonary team today and is being transferred to the ICU this morning for closer monitoring regarding his respiratory status. He is answering questions appropriately, however states he was at his moms house. He is more alert, and moving all extremities with equal strength. He also continues with watery drainage from his eyes. He is complaining of back pain today. 07/21/2021 Patient is evaluated today in the ICU, he was intubated yesterday at 1730, his PCO2 has come down to 40, current fi02 65%. White count today 10.2, sodium 140, potassium 2.8, BUN 35, creat 0.54, blood glucose in the 160s. Critical phosphorous yesterday at 0.7 was replaced and now 2.1, and will receive additional IV phosphorous today. AST 15, albumin 3.3. Patient had hematuria and repeat urinalysis was done showing 1+ protein, 4+glucose, 4+ketones, large blood, 1+bili, >182 RBC. Lovenox was discontinued. Platelet count is stable at 229. He is receiving sedation with propofol. He is also receiving IV ativan and had required haldol for acute agitation. He will be started on a versed infusion for agitation. On IV zosyn, IV solu-medrol, duonebs. He has been started on tube feedings. Continues with 1:1 sitter and followed by psychiatry. He is being followed closely by pulmonary manager cost services. 07/22/2021 Patient evaluated today in the ICU on 50% FiO2, he continues on propofol cleviprex and versed infusion. No BM since the although he has not had much oral intake. Will give a one time dose of lactulose today, and he continues on tube feedings at rate of 20 pending dietary evaluation tomorrow as there is no goal documented. Labs today showing white count 7.4, platelets 226, hgb 16.0, hct 53.6. Sodium 141, potassium 4.1, BUN 36, creat 0.46, blood glucose 131. AST 12, albumin 3.0. BNP 886. Chest xray today showing cardiomegaly, persistent bilateral acute infiltrates and or atelectasis and likely small tiny bilateral pleural effusions. Stable from one day earlier. He has remained afebrile, heart rate 60's, blood pressure 136/57, 95% on room air. Sputum culture and blood culture pending. He is on IV zosyn. Urine output is about 27 mls per hour in the last 24 hours, urine is brown in color, although creat is low normal. He continues on IV fluids at 100 mls per hour. 07/23/2021 Patient evaluated today continues in the ICU, intubated with fi02 of 50%. He continues on Versed infusion and klonopin was resumed today with plans to attempt to wean off the versed. He continues on luvox, and seroquel remains discontinued. Per RN patients sister was at the bedside and states that patient does not have a safe home environment with his mother and social work was consul medardo. Chest xray today showing basilar atelectasis versus pneumonia, difficult to exclude small effusions. Continues on IV Zosyn, IV steroids decreased to BID today. Patient was also started on IV lasix and fluids discontinued today by pulmonary team. He continues on IV propofol and IV cleviprex. Continues on parenteral feedings. Has not had a BM yet received a dose of lactulose yesterday, will receive another dose today no BM since the . Abdomen is soft and nontender and he has normoactive bowel sounds. His eyes are improving and look better today again, redness is resolving and there is less crusting noted today. Labs today showing WBC 8.6, platelet count 205, neutrophils 7.9. Repeat ABG's today showing pCO2 51, HCO3 33, total CO2 35, O2 saturation 97.3. Sodium 142, potassium 4.3, BUN 35, creat 0.51, AST 12 ALT 7, alk phos 65, blood glucose in the 140s. Unable to complete review of systems as patient is currently intubated. PHYSICAL EXAMINATION: GENERAL: The patient is intubated,. Obese. HEENT: Pupils are 4+ in size. EOMI. Mild crusting noted around the eyes. No conjunctival pallor. Normocephalic, atraumatic. No pharyngeal erythema. No thyromegaly. Poor dentition. He does wear top dentures which are currently not in place. CARDIOVASCULAR: S1 and S2 present. No murmurs, rubs, or gallops. PULMONARY: Chest is tight, diminished aeration. ABDOMEN: Soft, nontender, nondistended, normoactive bowel sounds. No palpable organomegaly. MUSCULOSKELETAL: No joint swelling or deformity. EXTREMITIES: No cyanosis, clubbing, or pedal edema. NEUROLOGICAL: Intubated unable to complete full neurological exam. SKIN: Generalized rash Assessment and plan Assessment Acute hypoxic and hypercarbic respiratory failure secondary to COPD exacerbation currently intubated in ICU, fio2 50% Rule out aspiration pneumonia with atlectasis on xray, patient is continued on antibiotics Conjunctivitis with eye crusting, improving on eye drops History of asthma, COPD History of hypertension Diabetes Mellitus type 2 with hypoglycemia on admission, improved Proteinuria Hematuria, which is resolving possibly due to IDC insertion History Bipolar / ADD / Depression with suicidal ideations on admission was initially on mental health unit on court ordered evaluation. History of spina bifida History of spinal stenosis Obesity Chronic daily nicotine use GI Prophylaxis DVT Prophylaxis Full Code Plan Patient is being monitored closely in the ICU he is still in critical condition. Continues on IV zosyn IV steroids, Duonebs, pulmicort IV lasix Q12 was started today and fluids to KVO Continue all other supportive care Speech evaluation pending Follow up AM labs Continue with psychiatry recommendations Social work consultation. The impression and plan of care has been dictated by Isa Driscoll, Nurse Practitioner as directed. Dr. Scar MD I have performed a history and physical examination and medical decision making of this patient, discussed the same with the dictator, and agree with the dictators assessment and plan as written, documented as a scribe. Based on total visit time, I have performed more than 50% of this visit. Objective - Vital Signs Vital signs: Vital Signs Temp 99.1 F 07/23/21 12:00 Pulse 67 07/23/21 14:49 Resp 16 07/23/21 14:00 BP 133/78 07/23/21 07:15 Pulse Ox 93 L 07/23/21 14:00 FiO2 50 07/23/21 12:00 Intake & Output 07/22/21 07/23/21 07/23/21 18:59 06:59 18:59 Intake Total 2224.045 1966.607 970.057 Output Total 680 965 510 Balance 4271.067 9165.607 460.057 Weight 107.4 kg 107.4 kg Intake: IV 1336 1236 524 Piperacillin-Tazobactam 3 100 100 .375 gm In Sodium Chloride 0.9% 100 ml @ 25 mls/hr IVPB Q8HR [facility] Rx# :[id number] Pressure Bag (0.9 Sodium 36 36 24 Chloride) Sodium Chloride 0.9% 1, 1200 1200 400 000 ml @ 20 mls/hr IV . Q24H [facility] Rx#:[id number] Intake, IV Titration 558.045 400.607 412.057 Amount Clevidipine Butyrate 25 40.4 21.533 81.2 mg In Empty Bag 1 bag @ 1 MG/HR 2 mls/hr IV .Q24H [facility] Rx#:[id number] Midazolam HCl 50 mg In 83.883 20.000 14.667 Sodium Chloride 0.9% 40 ml @ 1 MG/HR 1 mls/hr IV .Q24H [facility] Rx#:[id number] propofoL 1,000 mg In 433.762 359.074 316.190 Empty Bag 1 bag @ 5 MCG/ KG/MIN 2.918 mls/hr IV . Q24H [facility] Rx#:[id number] Tube Feeding 240 240 34 Other 90 90 Output: Urine 680 965 510 Other: Voiding Method Indwelling Catheter Indwelling Catheter Indwelling Catheter ABP, PAP, CO, CI - Last Documented Arterial Blood Pressure 137/57 - Labs CBC & Chem 7: 07/23/21 05:00 07/23/21 05:00 Labs: Abnormal Lab Results - Last 24 Hours (Table) 07/22/21 07/23/21 07/23/21 Range/Units 17:47 00:23 05:00 RBC 6.27 H (4.30-5.90) m/uL Hct 54.5 H (39.0-53.0) % MCHC 29.3 L (31.0-37.0) g/dL RDW 17.1 H (11.5-15.5) % Neutrophils # 7.9 H (1.3-7.7) k/uL Lymphocytes # 0.3 L (1.0-4.8) k/uL ABG pCO2 (35-45) mmHg ABG HCO3 (21-25) mmol/L ABG Total CO2 (19-24) mmol/L ABG O2 Saturation (94-97) % Carbon Dioxide (22-30) mmol/L BUN (9-20) mg/dL Creatinine (0.66-1.25) mg/dL Glucose (74-99) mg/dL POC Glucose (mg/dL) 144 H 146 H (75-99) mg/dL AST (17-59) U/L Total Protein (6.3-8.2) g/dL Albumin (3.5-5.0) g/dL 07/23/21 07/23/21 07/23/21 Range/Units 05:00 05:00 05:50 RBC (4.30-5.90) m/uL Hct (39.0-53.0) % MCHC (31.0-37.0) g/dL RDW (11.5-15.5) % Neutrophils # (1.3-7.7) k/uL Lymphocytes # (1.0-4.8) k/uL ABG pCO2 51 H (35-45) mmHg ABG HCO3 33 H (21-25) mmol/L ABG Total CO2 35 H (19-24) mmol/L ABG O2 Saturation 97.3 H (94-97) % Carbon Dioxide 32 H (22-30) mmol/L BUN 35 H (9-20) mg/dL Creatinine 0.51 L (0.66-1.25) mg/dL Glucose 160 H (74-99) mg/dL POC Glucose (mg/dL) 157 H (75-99) mg/dL AST 12 L (17-59) U/L Total Protein 5.4 L (6.3-8.2) g/dL Albumin 3.0 L (3.5-5.0) g/dL 07/23/21 07/23/21 Range/Units 06:11 11:40 RBC (4.30-5.90) m/uL Hct (39.0-53.0) % MCHC (31.0-37.0) g/dL RDW (11.5-15.5) % Neutrophils # (1.3-7.7) k/uL Lymphocytes # (1.0-4.8) k/uL ABG pCO2 (35-45) mmHg ABG HCO3 (21-25) mmol/L ABG Total CO2 (19-24) mmol/L ABG O2 Saturation (94-97) % Carbon Dioxide (22-30) mmol/L BUN (9-20) mg/dL Creatinine (0.66-1.25) mg/dL Glucose (74-99) mg/dL POC Glucose (mg/dL) 147 H 142 H (75-99) mg/dL AST (17-59) U/L Total Protein (6.3-8.2) g/dL Albumin (3.5-5.0) g/dL Microbiology - Last 24 Hours (Table) 07/20/21 20:35 Gram Stain - Final Sputum Sputum Culture - Final 07/18/21 16:54 Blood Culture - Preliminary Blood No Growth after 96 hours 07/18/21 16:45 Blood Culture - Preliminary Blood No Growth after 96 hours Assessment and Plan Time with Patient: Less than 30
[2021-07-23 16:17] LABS: Albumin/Globulin Ratio 1.7 (1.60-3.17); Globulin 2.3 g/dL (1.6-3.3); Total Bilirubin 0.4 mg/dL (0.30-1.20); Total Protein 6.3 g/dL (6.2-8.2)
[2021-07-23 17:40] LABS: Glucose,Whole Blood 135 mg/dL (75-99)
[2021-07-23] MEDS ORDERED: LACTULOSE 20 GM/30 ML CUP PO ONE (17:42)
[2021-07-23] MEDS: HALOPERIDOL LACTATE 5 MG/ML 1 ML VIAL IVP PRN (20:11)
[2021-07-23] MEDS: ATORVASTATIN 20 MG TAB PO SCH (20:17)
[2021-07-23] MEDS: FUROSEMIDE 10 MG/ML 4 ML VIAL IV SCH (20:17)
[2021-07-23 23:28] LABS: Glucose,Whole Blood 173 mg/dL (75-99)
[2021-07-23] MEDS: LORazepam 2 MG/ML INJ IV PRN (23:52)
[2021-07-24] MEDS: IPRATROPIUM-ALBUTEROL 3 ML NEB INHALATION PRN ×3 (00:30→23:26)
[2021-07-24] MEDS: CLEVIDIPINE BUTYRATE 25 MG in EMPTY BAG 1 BAG IV SCH ×2 (01:33→15:57)
[2021-07-24] MEDS: HALOPERIDOL LACTATE 5 MG/ML 1 ML VIAL IVP PRN ×3 (01:50→15:55)
[2021-07-24] MEDS: POLYMYXIN B-TRIMETHOPRIM SULF (10,000-1) OPHTH DROPS 10 ML BTL BOTH EYES SCH ×6 (04:13→23:50)
[2021-07-24 05:10] LABS: Anisocytosis Slight; HCT 52.4 % (39.0-53.0); HGB 15.8 gm/dL (13.0-17.5); Hypochromasia Marked; MCH 25.7 pg (25.0-35.0); MCHC 30.2 g/dL (31.0-37.0); MCV 85.2 fL (80.0-100.0); Mean Platelet Volume 7.5; Platelet Count 189 k/uL (150-450); Poikilocytosis Slight; RBC 6.15 m/uL (4.30-5.90); RDW 17.5 % (11.5-15.5); WBC 7.2 k/uL (3.8-10.6)
[2021-07-24 05:49] LABS: African American GFR (CKD) >90 (>60 ml/min/1.73 sqM); Anion Gap 3 mmol/L; Blood Urea Nitrogen 33 mg/dL (9-20); Calcium 8.3 mg/dL (8.4-10.2); Carbon Dioxide 34 mmol/L (22-30); Chloride 102 mmol/L (98-107); Glucose 171 mg/dL (74-99); Non-African American GFR(CKD) >90 (>60 ml/min/1.73 sqM); Potassium 3.8 mmol/L (3.5-5.1); Sodium 139 mmol/L (137-145)
[2021-07-24 05:50] LABS: ABG Base Excess 11.7 mmol/L; ABG HCO3 36 mmol/L (21-25); ABG Oxygen Saturation 97.4 % (94-97); ABG PCO2 52 mmHg (35-45); ABG PH 7.45 (7.35-7.45); ABG PO2 91 mmHg (83-108); ABG TCO2 37 mmol/L (19-24); Allen Test Performed? Yes
[2021-07-24 05:50] LABS: Glucose,Whole Blood 141 mg/dL (75-99)
[2021-07-24] MEDS: INSULIN ASPART (NovoLOG) 100 UNIT/ML VIAL SQ SCH ×4 (05:53→23:56)
[2021-07-24] MEDS: POTASSIUM CHLORIDE 10 MEQ in WATER FOR INJECTION 1 100ML.BAG IVPB SCH ×2 (06:41→08:29)
[2021-07-24] MEDS: BUDESONIDE 1 MG/2 ML NEBU INHALATION SCH ×2 (07:13→20:05)
[2021-07-24] MEDS: FORMOTEROL FUMARATE 20 MCG/2 ML NEBU INHALATION SCH ×2 (07:13→23:26)
[2021-07-24] MEDS: IPRATROPIUM-ALBUTEROL 3 ML NEB INHALATION SCH ×4 (07:13→20:04)
--- NOTE | 2021-07-24 08:12 | XR ---
EXAMINATION TYPE: XR chest 1V portable DATE OF EXAM: 07/24/2021 COMPARISON: Chest x-ray 07/23/2021 HISTORY: Intubated TECHNIQUE: Single frontal view of the chest is obtained. FINDINGS: Patient is rotated. Exam is expiratory. Endotracheal tube, NG tube, right jugular central venous catheter are again noted and overlying appropriate positions. Bibasilar increased attenuation persists, hemidiaphragms are obscured. Heart appears enlarged, appearance may be accentuated by techn ique. No evident pneumothorax. There are overlying leads. IMPRESSION: Bibasilar effusions and associated atelectasis versus pneumonia or edema. Correlate for congestive heart failure. Possible cardiomegaly.
[2021-07-24] MEDS: PIPERACILLIN-TAZOBACTAM 3.375 GM in SODIUM CHLORIDE 0.9% 100 ML IVPB SCH ×3 (08:28→23:48)
[2021-07-24] MEDS: PANTOPRAZOLE 40 MG/10 ML VIAL IVP SCH (08:29)
[2021-07-24] MEDS: ENOXAPARIN 40 MG/0.4 ML SYRINGE SQ SCH (08:29)
[2021-07-24] MEDS: FUROSEMIDE 10 MG/ML 4 ML VIAL IV SCH ×3 (08:29→23:48)
[2021-07-24] MEDS: clonazePAM 1 MG TAB PO SCH ×3 (08:29→21:36)
[2021-07-24] MEDS: NICOTINE 21MG/24HR PATCH TRANSDERM SCH (08:29)
[2021-07-24] MEDS: CHLORHEXIDINE GLUCONATE 15 ML CUP MUCOUS MEM SCH ×2 (08:29→21:36)
[2021-07-24] MEDS: methylPREDNISolone SOD SUCCI 40 MG/ML 1 ML VIAL IV SCH ×2 (08:30→21:37)
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
[2021-07-24] MEDS: LORazepam 2 MG/ML INJ IV PRN (11:25)
[2021-07-24 12:28] LABS: Glucose,Whole Blood 166 mg/dL (75-99)
--- NOTE | 2021-07-24 13:45 | P.PN ---
Subjective Progress Note Date: 07/24/21 This is a 45-year-old male who initially was evaluated on [facility] where he was admitted as a court ordered petition for medication adjustments. Patient has a past medical history significant for bipolar type I, ADD, asthma, COPD, diabetes mellitus, hypertension, gastroesophageal reflux disease, spinal bifida with spinal stenosis, patient is a daily smoker since the age of 11, currently smoking 2 packs per day. He denies any alcohol use, denies illicit drug use. States he lives with his mother, uses a wheel chair for transportation. He reportedly has been unable to care for his basic needs, and presents with poor hygiene. He is currently pending psychiatric evaluation. He was transferred to the medical floor as he was found to have significant shortness of breath making it difficult to carry on a conversation. He reports this has been going on at home for 2 weeks now and was evaluated at his PCP's office. He reports 2-3 days ago the shortness of breath worsened and he has clear nasal drainage and congestion. He denies fever or chills. Denies chest pain. Denies nausea, vomiting, diarrhea. Initial diagnostics for admission to [facility] include EKG showing sinus rhythm with a heart rate of 72, there is no ST or T wave abnormalities noted. Lab on admission showing white count 12.1, hemoglobin 17.7, hematocrit is elevated at 60.9. Chemistry panel showing sodium 138, potassium 4.8, CO2 34, BUN 17, creatinine 0.63, glucose of 105. Urinalysis positive for 1+ protein, 4+ glucose, 1+ ketone with occasional mucus. His urine drug toxicology is positive for tricyclic antidepressants, benzodiazepines. Covid is not detected. Chest xray showing new right basilar acute infiltrate and or atelectasis. He was found to be hypoxic on room air in the 90s, reports to not wearing any home oxygen. He required 4-6 L of oxygen to stabilize and was transferred to the medical floor where he was re-evaluated. He was started on IV solu-medrol, and duonebs. Pulmonary services were consulted for evaluation. Patient appears to have worsening hypoxia when sleeping, possibility of an obstructive sleep apnea. He is lethargic today as well, arrousable to voice, stopped the klonopin and decreased seroquel. Final med reqs from psychiatry. D-Dimer negative, procalcitonin 0.08. Influenza A and B also not detected. Current vital signs include heart rate of 90, blood pressure 133/79, 96% on 4L nasal cannula. 07/20/2021 Patient evaluated today on BiPAP. Yesterday afternoon he was quite lethargic, seroquel was decreased down to 25 mg PO HS and klonopin was discontinued for now. Any additional recommendations reguarding his psychiatric medications from psych consultation as patient was on a court order petition for mental health treatment. ABG's were completed yesterday showing pH of 7.25, PCO2 of 92, PO2 of 71, HCO3 of 40, total CO2 43, ox saturation 93.6. He was placed on a 40% fio2 BiPAP. He continues with 1:1 Sitter at the bedside as well. Labs today showing a white count of 15.20, hgb 16.1, hematocrit has improved slightly to 57.4. Sodium 142, potassium 5.4, BUN 19, creat 0.5. Blood glucose is in the 100-90s. We are continuing to hold his home insulin, metformin and actos, and covering with sliding scale as needed. He continues on jardiance. Vital signs today showing temp of 98.1, heart rate 82, blood pressure 128/77, oxygen saturation of 94% on BiPAP. Blood cultures are showing negative. He was started on empiric antibiotic coverage with zosyn today by pulmonary team, he continues also IV steroids which were increased to every 8 hours today, as well as duonebs and pulmicort. Patient was evaluated by pulmonary team today and is being transferred to the ICU this morning for closer monitoring regarding his respiratory status. He is answering questions appropriately, however states he was at his moms house. He is more alert, and moving all extremities with equal strength. He also continues with watery drainage from his eyes. He is complaining of back pain today. 07/21/2021 Patient is evaluated today in the ICU, he was intubated yesterday at 1730, his PCO2 has come down to 40, current fi02 65%. White count today 10.2, sodium 140, potassium 2.8, BUN 35, creat 0.54, blood glucose in the 160s. Critical phosphorous yesterday at 0.7 was replaced and now 2.1, and will receive additional IV phosphorous today. AST 15, albumin 3.3. Patient had hematuria and repeat urinalysis was done showing 1+ protein, 4+glucose, 4+ketones, large blood, 1+bili, >182 RBC. Lovenox was discontinued. Platelet count is stable at 229. He is receiving sedation with propofol. He is also receiving IV ativan and had required haldol for acute agitation. He will be started on a versed infusion for agitation. On IV zosyn, IV solu-medrol, duonebs. He has been started on tube feedings. Continues with 1:1 sitter and followed by psychiatry. He is being followed closely by pulmonary thermoscre[employer] operator services. 07/22/2021 Patient evaluated today in the ICU on 50% FiO2, he continues on propofol cleviprex and versed infusion. No BM since the although he has not had much oral intake. Will give a one time dose of lactulose today, and he continues on tube feedings at rate of 20 pending dietary evaluation tomorrow as there is no goal documented. Labs today showing white count 7.4, platelets 226, hgb 16.0, hct 53.6. Sodium 141, potassium 4.1, BUN 36, creat 0.46, blood glucose 131. AST 12, albumin 3.0. BNP 886. Chest xray today showing cardiomegaly, persistent bilateral acute infiltrates and or atelectasis and likely small tiny bilateral pleural effusions. Stable from one day earlier. He has remained afebrile, heart rate 60's, blood pressure 136/57, 95% on room air. Sputum culture and blood culture pending. He is on IV zosyn. Urine output is about 27 mls per hour in the last 24 hours, urine is brown in color, although creat is low normal. He continues on IV fluids at 100 mls per hour. 07/23/2021 Patient evaluated today continues in the ICU, intubated with fi02 of 50%. He continues on Versed infusion and klonopin was resumed today with plans to attempt to wean off the versed. He continues on luvox, and seroquel remains discontinued. Per RN patients sister was at the bedside and states that patient does not have a safe home environment with his mother and social work was consul medardo. Chest xray today showing basilar atelectasis versus pneumonia, difficult to exclude small effusions. Continues on IV Zosyn, IV steroids decreased to BID today. Patient was also started on IV lasix and fluids discontinued today by pulmonary team. He continues on IV propofol and IV cleviprex. Continues on parenteral feedings. Has not had a BM yet received a dose of lactulose yesterday, will receive another dose today no BM since the . Abdomen is soft and nontender and he has normoactive bowel sounds. His eyes are improving and look better today again, redness is resolving and there is less crusting noted today. Labs today showing WBC 8.6, platelet count 205, neutrophils 7.9. Repeat ABG's today showing pCO2 51, HCO3 33, total CO2 35, O2 saturation 97.3. Sodium 142, potassium 4.3, BUN 35, creat 0.51, AST 12 ALT 7, alk phos 65, blood glucose in the 140s. 07/24/2021 Patient remains in the ICU, he is intubated on FiO2 of 50%. He was weaned off the versed gtt and resumed on oral klonopin. Continues on IV zosyn, IV solu- medrol, IV lasix. He is receiving IV cleviprex and IV propofol. Also receiving IV ativan push for breakthrough agitation. He is awake today, his eyes are opening, he was trying to sit up. His weight is up today and lasix was increased to every 8 hours, fluids remain at KVO. Repeat chest xray today showing bibasilar effusions and associated atelectasis vs. pneumonia or edema. Correlate for congestive heart failure. Procalcitonin follow up yesterday 0.04. He is bradycardic today heart rate in the 50's, blood pressure 124/68, afebrile, 95% oxygenation. Echocardiogram has been ordered. Continues on enteral nutrition, he is at goal. Blood sugars in the 130-160 range, and is receiving novolog for coverage. If patient continues with breakthrough agitation can resume seroquel at HS. Unable to complete review of systems as patient is currently intubated. PHYSICAL EXAMINATION: GENERAL: The patient is intubated,. Obese. HEENT: Pupils are 4+ in size. EOMI. Mild crusting noted around the eyes. No conjunctival pallor. Normocephalic, atraumatic. No pharyngeal erythema. No thyromegaly. Poor dentition. He does wear top dentures which are currently not in place. CARDIOVASCULAR: S1 and S2 present. No murmurs, rubs, or gallops. PULMONARY: Chest is diminished. ABDOMEN: Soft, nontender, nondistended, normoactive bowel sounds. No palpable organomegaly. MUSCULOSKELETAL: No joint swelling or deformity. EXTREMITIES: No cyanosis, clubbing, or pedal edema. NEUROLOGICAL: Intubated unable to complete full neurological exam. SKIN: Generalized rash Assessment and plan Assessment Acute hypoxic and hypercarbic respiratory failure secondary to COPD exacerbation currently intubated in ICU, fio2 50% Rule out aspiration pneumonia with atlectasis on xray, patient is continued on antibiotics, procalcitonin level 0.04. Fluid overload, on IV lasix, echocardiogram has been ordered Conjunctivitis with eye crusting, continue with antibiotic eye drops for 4 more days to complete therapy. History of asthma, COPD History of hypertension Diabetes Mellitus type 2 with hypoglycemia on admission, improved Proteinuria Hematuria, which is resolving possibly due to IDC insertion History Bipolar / ADD / Depression with suicidal ideations on admission was initially on mental health unit on court ordered evaluation. History of spina bifida History of spinal stenosis Obesity Chronic daily nicotine use GI Prophylaxis DVT Prophylaxis Full Code Plan Patient is being monitored closely in the ICU he is still in critical condition. Continues on IV zosyn IV steroids, Duonebs, pulmicort Continues on IV lasix, increased to Q8h today. Echocardiogram pending Weaned off versed gtt, resumed home klonopin, consider resuming seroquel Continue all other supportive care Speech evaluation pending Follow up AM labs Continue with psychiatry recommendations Social work consultation. The impression and plan of care has been dictated by Isa Driscoll, Nurse Practitioner as directed. Dr. Scar MD I have performed a history and physical examination and medical decision making of this patient, discussed the same with the dictator, and agree with the dictators assessment and plan as written, documented as a scribe. Based on total visit time, I have performed more than 50% of this visit. Objective - Vital Signs Vital signs: Vital Signs Temp 98.5 F 07/24/21 04:00 Pulse 54 L 07/24/21 11:29 Resp 16 07/24/21 06:00 BP 137/53 07/24/21 06:00 Pulse Ox 95 05/24/22 06:00 FiO2 50 07/24/21 11:11 Intake & Output 07/23/21 07/24/21 07/24/21 18:59 06:59 18:59 Intake Total 7430.605 8088.835 611.857 Output Total 805 2470 1735 Balance 654.338 -1137.165 -1123.143 Weight 107.4 kg 108.5 kg Intake: IV 819 476 295 Piperacillin-Tazobactam 3 100 100 100 .375 gm In Sodium Chloride 0.9% 100 ml @ 25 mls/hr IVPB Q8HR VINCE Rx# :[id number] Potassium Chloride 10 meq 100 100 In Water For Injection 1 100ml.bag @ 100 mls/hr IVPB Q1H [facility]INCE Rx#: [id number] Pressure Bag (0.9 Sodium 39 36 15 Chloride) Sodium Chloride 0.9% 1, 680 240 80 000 ml @ 20 mls/hr IV . Q24H [facility]INCE Rx#:[id number] Intake, IV Titration 592.338 584.835 186.857 Amount Clevidipine Butyrate 25 81.2 117.4 13.166 mg In Empty Bag 1 bag @ 1 MG/HR 2 mls/hr IV .Q24H VINCE Rx#:[id number] Midazolam HCl 50 mg In 14.667 Sodium Chloride 0.9% 40 ml @ 1 MG/HR 1 mls/hr IV .Q24H VINCE Rx#:[id number] propofoL 1,000 mg In 496.471 467.435 173.691 Empty Bag 1 bag @ 5 MCG/ KG/MIN 2.918 mls/hr IV . Q24H VINCE Rx#:[id number] Tube Feeding 48 182 70 Other 90 60 Output: Urine 805 2470 1735 Other: Voiding Method Indwelling Catheter Indwelling Catheter ABP, PAP, CO, CI - Last Documented Arterial Blood Pressure 120/49 - Labs CBC & Chem 7: 07/24/21 04:55 07/24/21 04:55 Labs: Abnormal Lab Results - Last 24 Hours (Table) 07/23/21 07/23/21 07/24/21 Range/Units 17:38 23:27 04:55 RBC 6.15 H (4.30-5.90) m/uL MCHC 30.2 L (31.0-37.0) g/dL RDW 17.5 H (11.5-15.5) % ABG pCO2 (35-45) mmHg ABG HCO3 (21-25) mmol/L ABG Total CO2 (19-24) mmol/L ABG O2 Saturation (94-97) % Carbon Dioxide (22-30) mmol/L BUN (9-20) mg/dL Creatinine (0.66-1.25) mg/dL Glucose (74-99) mg/dL POC Glucose (mg/dL) 135 H 173 H (75-99) mg/dL Calcium (8.4-10.2) mg/dL 07/24/21 07/24/21 07/24/21 Range/Units 04:55 05:49 05:50 RBC (4.30-5.90) m/uL MCHC (31.0-37.0) g/dL RDW (11.5-15.5) % ABG pCO2 52 H (35-45) mmHg ABG HCO3 36 H (21-25) mmol/L ABG Total CO2 37 H (19-24) mmol/L ABG O2 Saturation 97.4 H (94-97) % Carbon Dioxide 34 H (22-30) mmol/L BUN 33 H (9-20) mg/dL Creatinine 0.47 L (0.66-1.25) mg/dL Glucose 171 H (74-99) mg/dL POC Glucose (mg/dL) 141 H (75-99) mg/dL Calcium 8.3 L (8.4-10.2) mg/dL 07/24/21 Range/Units 12:27 RBC (4.30-5.90) m/uL MCHC (31.0-37.0) g/dL RDW (11.5-15.5) % ABG pCO2 (35-45) mmHg ABG HCO3 (21-25) mmol/L ABG Total CO2 (19-24) mmol/L ABG O2 Saturation (94-97) % Carbon Dioxide (22-30) mmol/L BUN (9-20) mg/dL Creatinine (0.66-1.25) mg/dL Glucose (74-99) mg/dL POC Glucose (mg/dL) 166 H (75-99) mg/dL Calcium (8.4-10.2) mg/dL Microbiology - Last 24 Hours (Table) 07/18/21 16:54 Blood Culture - Preliminary Blood No Growth after 120 hours 07/18/21 16:45 Blood Culture - Preliminary Blood No Growth after 120 hours 07/20/21 20:35 Gram Stain - Final Sputum Sputum Culture - Final Assessment and Plan Time with Patient: Less than 30
[2021-07-24] MEDS: SODIUM CHLORIDE 0.9% 1,000 ML IV SCH (18:02)
[2021-07-24 18:06] LABS: Glucose,Whole Blood 163 mg/dL (75-99)
--- NOTE | 2021-07-24 19:33 | CA ---
Transthoracic Echo Report Name: Olvin De La Rosa Age: 45 Gender: M : 1975 Exam Date: 07/24/2021 13:28 Exam Location: [facility] Ht (in): 70 Wt (lb): 239 Ordering Physician: Courtney Red Attending/Referring Phys: [id number], [employer] Hardware Analyst Renay Ingram RDCS Procedure CPT: Indications: acute resp failure, fluid overload Cardiac Hx: Technical Quality: Fair Contrast 1: Total Dose (mL): Contrast 2: Total Dose (mL): MEASUREMENTS (Male / Female) Normal Values 2D ECHO LV Diastolic Diameter PLAX 4.5 cm 4.2 - 5.9 / 3.9 - 5.3 cm LV Systolic Diameter PLAX 2.8 cm IVS Diastolic Thickness 1.7 cm 0.6 - 1.0 / 0.6 - 0.9 cm LVPW Diastolic Thickness 1.6 cm 0.6 - 1.0 / 0.6 - 0.9 cm LV Relative Wall Thickness 0.7 RV Internal Dim ED PLAX 3.8 cm LA Volume 58.3 cm??? 18 - 58 / 22 - 52 cm??? M-MODE Aortic Root Diameter MM 3.5 cm LA Systolic Diameter MM 4.3 cm LA Ao Ratio MM 1.2 AV Cusp Separation MM 2.2 cm DOPPLER AV Peak Velocity 152.1 cm/s AV Peak Gradient 9.2 mmHg LVOT Peak Velocity 138.1 cm/s LVOT Peak Gradient 7.6 mmHg MV Area PHT 3.0 cm??? Mitral E Point Velocity 90.2 cm/s Mitral A Point Velocity 66.3 cm/s Mitral E to A Ratio 1.4 MV Deceleration Time 250.8 ms MV E' Velocity 9.6 cm/s Mitral E to MV E' Ratio 9.4 TR Peak Velocity 206.9 cm/s TR Peak Gradient 17.1 mmHg Right Ventricular Systolic Press 21.0 mmHg FINDINGS Left Ventricle Normal left ventricular systolic function with no obvious regional wall motion abnormalities. Left ventricular cavity size normal. Moderately increased left ventricular wall thickness. Left ventricular ejection fraction is estimated at 55-60 %. Right Ventricle Mild right ventricular dilatation. Right ventricular systolic pressure within normal limits. Right Atrium Normal right atrial size. Left Atrium Normal left atrial size. No evidence for an atrial septal defect. Mitral Valve Structurally normal mitral valve. No mitral stenosis. Mild mitral regurgitation. Aortic Valve Trileaflet aortic valve. No aortic valve stenosis or regurgitation. Tricuspid Valve Structurally normal tricuspid valve. Mild tricuspid regurgitation. Pulmonic Valve Structurally normal pulmonic valve. Pericardium No pericardial effusion. Aorta Normal size aortic root and proximal ascending aorta. CONCLUSIONS Left ventricular hypertrophy with ejection fraction greater than 60% RV appears enlarged and hypokinetic Previewed by: Dr. Deepak Draper MD (Electronically Signed) Final Date: 24 Jul 2021 19:33
[2021-07-24] MEDS: ATORVASTATIN 20 MG TAB PO SCH (21:35)
[2021-07-24 23:56] LABS: Glucose,Whole Blood 162 mg/dL (75-99)
[2021-07-25 06:06] LABS: ABG Base Excess 15.8 mmol/L; ABG HCO3 39 mmol/L (21-25); ABG Oxygen Saturation 94.8 % (94-97); ABG PCO2 52 mmHg (35-45); ABG PH 7.49 (7.35-7.45); ABG PO2 71 mmHg (83-108); ABG TCO2 41 mmol/L (19-24); Allen Test Performed? Yes
[2021-07-25 06:14] LABS: African American GFR (CKD) >90 (>60 ml/min/1.73 sqM); Anion Gap 3 mmol/L; Blood Urea Nitrogen 32 mg/dL (9-20); Calcium 8.5 mg/dL (8.4-10.2); Carbon Dioxide 38 mmol/L (22-30); Chloride 97 mmol/L (98-107); Glucose 193 mg/dL (74-99); Non-African American GFR(CKD) >90 (>60 ml/min/1.73 sqM); Potassium 3.5 mmol/L (3.5-5.1); Sodium 138 mmol/L (137-145)
[2021-07-25 06:24] LABS: Anisocytosis Slight; Basophils % (A) 0 %; Eosinophils % (A) 0 %; HCT 54.7 % (39.0-53.0); HGB 16.4 gm/dL (13.0-17.5); Hypochromasia Marked; Lymphocytes # (A) 0.6 k/uL (1.0-4.8); Lymphocytes % (A) 9 %; MCH 25.5 pg (25.0-35.0); MCV 84.8 fL (80.0-100.0); Mean Platelet Volume 7.3; Monocytes # (A) 0.3 k/uL (0-1.0); Monocytes % (A) 5 %; Neutrophils # (A) 5.5 k/uL (1.3-7.7); Neutrophils % (A) 85 %; Platelet Count 167 k/uL (150-450); Poikilocytosis Slight; RBC 6.45 m/uL (4.30-5.90); RDW 17.3 % (11.5-15.5); WBC 6.5 k/uL (3.8-10.6)
[2021-07-25] MEDS: POLYMYXIN B-TRIMETHOPRIM SULF (10,000-1) OPHTH DROPS 10 ML BTL BOTH EYES SCH ×6 (06:40→23:11)
[2021-07-25] MEDS: INSULIN ASPART (NovoLOG) 100 UNIT/ML VIAL SQ SCH ×4 (06:43→23:10)
--- NOTE | 2021-07-25 08:11 | XR ---
EXAMINATION TYPE: XR chest 1V portable DATE OF EXAM: 07/25/2021 COMPARISON: Chest x-ray 07/24/2021 HISTORY: Intubated TECHNIQUE: Single frontal view of the chest is obtained. FINDINGS: Endotracheal tube, NG tube, right jugular central venous catheter are overlying appropriat e positions, stable. There are overlying artifacts. No evident pneumothorax. Bibasilar increased atte nuation again noted, the hemidiaphragms are obscured. Heart appears enlarged. Interstitium is increas ed. IMPRESSION: Correlate for congestive heart failure and associated effusions, pneumonia not excluded.
[2021-07-25] MEDS: FORMOTEROL FUMARATE 20 MCG/2 ML NEBU INHALATION SCH ×2 (08:19→20:31)
[2021-07-25] MEDS: IPRATROPIUM-ALBUTEROL 3 ML NEB INHALATION SCH ×4 (08:19→20:31)
[2021-07-25] MEDS: BUDESONIDE 1 MG/2 ML NEBU INHALATION SCH ×2 (08:19→20:31)
[2021-07-25] MEDS: NICOTINE 21MG/24HR PATCH TRANSDERM SCH (08:36)
[2021-07-25] MEDS: CHLORHEXIDINE GLUCONATE 15 ML CUP MUCOUS MEM SCH (08:36)
[2021-07-25] MEDS: POTASSIUM BICARBONATE/CIT AC 20 MEQ TABLET.EFF NG-TUBE SCH ×2 (08:36→11:03)
[2021-07-25] MEDS: PANTOPRAZOLE 40 MG/10 ML VIAL IVP SCH (08:37)
[2021-07-25] MEDS: clonazePAM 1 MG TAB PO SCH ×3 (08:37→21:24)
[2021-07-25] MEDS: FUROSEMIDE 10 MG/ML 4 ML VIAL IV SCH ×3 (08:38→23:09)
[2021-07-25] MEDS: ENOXAPARIN 40 MG/0.4 ML SYRINGE SQ SCH (08:38)
[2021-07-25] MEDS: methylPREDNISolone SOD SUCCI 40 MG/ML 1 ML VIAL IV SCH ×2 (08:38→20:06)
[2021-07-25] MEDS: PIPERACILLIN-TAZOBACTAM 3.375 GM in SODIUM CHLORIDE 0.9% 100 ML IVPB SCH ×3 (08:42→23:09)
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
[2021-07-25 12:18] LABS: Glucose,Whole Blood 182 mg/dL (75-99)
[2021-07-25 13:33] LABS: ABG Base Excess 11.6 mmol/L; ABG HCO3 37 mmol/L (21-25); ABG Oxygen Saturation 94.8 % (94-97); ABG PCO2 61 mmHg (35-45); ABG PH 7.39 (7.35-7.45); ABG PO2 79 mmHg (83-108); ABG TCO2 39 mmol/L (19-24)
[2021-07-25 13:35] LABS: Allen Test Performed? no
--- NOTE | 2021-07-25 15:24 | P.PN ---
Subjective Progress Note Date: 07/25/21 This is a 45-year-old male who initially was evaluated on [facility] where he was admitted as a court ordered petition for medication adjustments. Patient has a past medical history significant for bipolar type I, ADD, asthma, COPD, diabetes mellitus, hypertension, gastroesophageal reflux disease, spinal bifida with spinal stenosis, patient is a daily smoker since the age of 11, currently smoking 2 packs per day. He denies any alcohol use, denies illicit drug use. States he lives with his mother, uses a wheel chair for transportation. He reportedly has been unable to care for his basic needs, and presents with poor hygiene. He is currently pending psychiatric evaluation. He was transferred to the medical floor as he was found to have significant shortness of breath making it difficult to carry on a conversation. He reports this has been going on at home for 2 weeks now and was evaluated at his PCP's office. He reports 2-3 days ago the shortness of breath worsened and he has clear nasal drainage and congestion. He denies fever or chills. Denies chest pain. Denies nausea, vomiting, diarrhea. Initial diagnostics for admission to [facility] include EKG showing sinus rhythm with a heart rate of 72, there is no ST or T wave abnormalities noted. Lab on admission showing white count 12.1, hemoglobin 17.7, hematocrit is elevated at 60.9. Chemistry panel showing sodium 138, potassium 4.8, CO2 34, BUN 17, creatinine 0.63, glucose of 105. Urinalysis positive for 1+ protein, 4+ glucose, 1+ ketone with occasional mucus. His urine drug toxicology is positive for tricyclic antidepressants, benzodiazepines. Covid is not detected. Chest xray showing new right basilar acute infiltrate and or atelectasis. He was found to be hypoxic on room air in the 90s, reports to not wearing any home oxygen. He required 4-6 L of oxygen to stabilize and was transferred to the medical floor where he was re-evaluated. He was started on IV solu-medrol, and duonebs. Pulmonary services were consulted for evaluation. Patient appears to have worsening hypoxia when sleeping, possibility of an obstructive sleep apnea. He is lethargic today as well, arrousable to voice, stopped the klonopin and decreased seroquel. Final med reqs from psychiatry. D-Dimer negative, procalcitonin 0.08. Influenza A and B also not detected. Current vital signs include heart rate of 90, blood pressure 133/79, 96% on 4L nasal cannula. 07/20/2021 Patient evaluated today on BiPAP. Yesterday afternoon he was quite lethargic, seroquel was decreased down to 25 mg PO HS and klonopin was discontinued for now. Any additional recommendations reguarding his psychiatric medications from psych consultation as patient was on a court order petition for mental health treatment. ABG's were completed yesterday showing pH of 7.25, PCO2 of 92, PO2 of 71, HCO3 of 40, total CO2 43, ox saturation 93.6. He was placed on a 40% fio2 BiPAP. He continues with 1:1 Sitter at the bedside as well. Labs today showing a white count of 15.20, hgb 16.1, hematocrit has improved slightly to 57.4. Sodium 142, potassium 5.4, BUN 19, creat 0.5. Blood glucose is in the 100-90s. We are continuing to hold his home insulin, metformin and actos, and covering with sliding scale as needed. He continues on jardiance. Vital signs today showing temp of 98.1, heart rate 82, blood pressure 128/77, oxygen saturation of 94% on BiPAP. Blood cultures are showing negative. He was started on empiric antibiotic coverage with zosyn today by pulmonary team, he continues also IV steroids which were increased to every 8 hours today, as well as duonebs and pulmicort. Patient was evaluated by pulmonary team today and is being transferred to the ICU this morning for closer monitoring regarding his respiratory status. He is answering questions appropriately, however states he was at his moms house. He is more alert, and moving all extremities with equal strength. He also continues with watery drainage from his eyes. He is complaining of back pain today. 07/21/2021 Patient is evaluated today in the ICU, he was intubated yesterday at 1730, his PCO2 has come down to 40, current fi02 65%. White count today 10.2, sodium 140, potassium 2.8, BUN 35, creat 0.54, blood glucose in the 160s. Critical phosphorous yesterday at 0.7 was replaced and now 2.1, and will receive additional IV phosphorous today. AST 15, albumin 3.3. Patient had hematuria and repeat urinalysis was done showing 1+ protein, 4+glucose, 4+ketones, large blood, 1+bili, >182 RBC. Lovenox was discontinued. Platelet count is stable at 229. He is receiving sedation with propofol. He is also receiving IV ativan and had required haldol for acute agitation. He will be started on a versed infusion for agitation. On IV zosyn, IV solu-medrol, duonebs. He has been started on tube feedings. Continues with 1:1 sitter and followed by psychiatry. He is being followed closely by pulmonary performance consultant services. 07/22/2021 Patient evaluated today in the ICU on 50% FiO2, he continues on propofol clevip asad and versed infusion. No BM since the although he has not had much oral intake. Will give a one time dose of lactulose today, and he continues on tube feedings at rate of 20 pending dietary evaluation tomorrow as there is no goal documented. Labs today showing white count 7.4, platelets 226, hgb 16.0, hct 53.6. Sodium 141, potassium 4.1, BUN 36, creat 0.46, blood glucose 131. AST 12, albumin 3.0. BNP 886. Chest xray today showing cardiomegaly, persistent bilateral acute infiltrates and or atelectasis and likely small tiny bilateral pleural effusions. Stable from one day earlier. He has remained afebrile, heart rate 60's, blood pressure 136/57, 95% on room air. Sputum culture and blood culture pending. He is on IV zosyn. Urine output is about 27 mls per hour in the last 24 hours, urine is brown in color, although creat is low normal. He continues on IV fluids at 100 mls per hour. 07/23/2021 Patient evaluated today continues in the ICU, intubated with fi02 of 50%. He continues on Versed infusion and klonopin was resumed today with plans to attempt to wean off the versed. He continues on luvox, and seroquel remains discontinued. Per RN patients sister was at the bedside and states that patient does not have a safe home environment with his mother and social work was cons ulted. Chest xray today showing basilar atelectasis versus pneumonia, difficult to exclude small effusions. Continues on IV Zosyn, IV steroids decreased to BID today. Patient was also started on IV lasix and fluids discontinued today by pulmonary team. He continues on IV propofol and IV cleviprex. Continues on parenteral feedings. Has not had a BM yet received a dose of lactulose yesterday, will receive another dose today no BM since the . Abdomen is soft and nontender and he has normoactive bowel sounds. His eyes are improving and look better today again, redness is resolving and there is less crusting noted today. Labs today showing WBC 8.6, platelet count 205, neutrophils 7.9. Repeat ABG's today showing pCO2 51, HCO3 33, total CO2 35, O2 saturation 97.3. Sodium 142, potassium 4.3, BUN 35, creat 0.51, AST 12 ALT 7, alk phos 65, blood glucose in the 140s. 07/24/2021 Patient remains in the ICU, he is intubated on FiO2 of 50%. He was weaned off the versed gtt and resumed on oral klonopin. Continues on IV zosyn, IV solu- medrol, IV lasix. He is receiving IV cleviprex and IV propofol. Also receiving IV ativan push for breakthrough agitation. He is awake today, his eyes are openi ng, he was trying to sit up. His weight is up today and lasix was increased to every 8 hours, fluids remain at KVO. Repeat chest xray today showing bibasilar effusions and associated atelectasis vs. pneumonia or edema. Correlate for congestive heart failure. Procalcitonin follow up yesterday 0.04. He is bradycardic today heart rate in the 50's, blood pressure 124/68, afebrile, 95% oxygenation. Echocardiogram has been ordered. Continues on enteral nutrition, he is at goal. Blood sugars in the 130-160 range, and is receiving novolog for coverage. If patient continues with breakthrough agitation can resume seroquel at HS. 07/25/2021 Patient is seen in follow-up continues to be in the ICU on sedation and mechanical ventilation with an FiO2 of 50% and PEEP is 5. Sedation holidays and process to assess weaning parameters along with mentation. Pulmonary performance consultant along with psychiatry following closely. Patient is also continued on IV Lasix and will continue and monitor intake and output closely. Klonopin has been resumed and will continue for now. Psychiatry also following him recommend continuing with current medication regimen and appreciate input and recommendations. Patient continues with anterior nutrition and will continue. We'll have physical therapy evaluate the patient. Patient also continues on IV Zosyn empirically with the possibility of aspiration pneumonia. Recommend repeat labs and follow-up chest x-ray. Unable to complete review of systems as patient is currently intubated. Active Medications Acetaminophen (Acetaminophen Tab 325 Mg Tab) 650 mg PO Q6HR PRN PRN Reason: Fever and/ or Mild Pain Acetazolamide Sodium (Acetazolamide Sodium 500 Mg Vial) 250 mg IV Q12HR [facility] Stop: 07/25/21 21:01 Last Admin: 07/25/21 11:03 Dose: 250 mg Albuterol/Ipratropium (Ipratropium-Albuterol 3 Ml Neb) 3 ml INHALATION RT-Q2H PRN PRN Reason: Shortness Of Breath Or Wheezing Last Admin: 07/24/21 23:26 Dose: 3 ml Albuterol/Ipratropium (Ipratropium-Albuterol 3 Ml Neb) 3 ml INHALATION RT-QID [facility] Last Admin: 07/25/21 11:55 Dose: 3 ml Atorvastatin Calcium (Atorvastatin 20 Mg Tab) 20 mg PO HS [facility] Last Admin: 07/24/21 21:35 Dose: 20 mg Budesonide (Budesonide 1 Mg/2 Ml Nebu) 1 mg INHALATION RT-BID [facility] Last Admin: 07/25/21 08:19 Dose: 1 mg Chlorhexidine Gluconate (Chlorhexidine Gluconate 15 Ml Cup) 15 ml MUCOUS MEM BID [facility] Last Admin: 07/25/21 08:36 Dose: 15 ml Clonazepam (Clonazepam 1 Mg Tab) 1 mg PO TID [facility] Last Admin: 07/25/21 08:37 Dose: 1 mg Enoxaparin Sodium (Enoxaparin 40 Mg/0.4 Ml Syringe) 40 mg SQ DAILY [facility] Last Admin: 07/25/21 08:38 Dose: 40 mg Fluvoxamine Maleate (Fluvoxamine 50 Mg Tab) 50 mg PO DAILY [facility] Last Admin: 07/25/21 08:45 Dose: 50 mg Fluvoxamine Maleate (Fluvoxamine 50 Mg Tab) 100 mg PO [facility] Last Admin: 07/24/21 21:36 Dose: 100 mg Formoterol Fumarate (Formoterol Fumarate 20 Mcg/2 Ml Nebu) 20 mcg INHALATION RT-BID [facility] Last Admin: 07/25/21 08:19 Dose: 20 mcg Furosemide (Furosemide 10 Mg/Ml 4 Ml Vial) 40 mg IV Q8HR [facility] Last Admin: 07/25/21 08:38 Dose: 40 mg Haloperidol Lactate (Haloperidol Lactate 5 Mg/Ml 1 Ml Vial) 4 mg IVP Q4H PRN PRN Reason: Agitation or Acute Psychosis Last Admin: 07/24/21 15:55 Dose: 4 mg Piperacillin Sod/Tazobactam (Sod 3.375 gm/ Sodium Chloride) 100 mls @ 25 mls/hr IVPB Q8HR [facility]; Protocol Last Admin: 07/25/21 08:42 Dose: 25 mls/hr Sodium Chloride (Saline 0.9%) 1,000 mls @ 20 mls/hr IV .Q24H [facility] Last Admin: 07/24/21 18:02 Dose: 20 mls/hr Propofol 1,000 mg/ IV Solution 100 mls @ 2.918 mls/hr IV .Q24H [facility]; Protocol Last Titration: 07/25/21 13:28 Dose: 10 mcg/kg/min, 5.835 mls/hr Clevidipine 25 mg/ IV Solution 50 mls @ 2 mls/hr IV .Q24H [facility]; Protocol Last Titration: 07/25/21 10:10 Dose: 1 mg/hr, 2 mls/hr Insulin Aspart (Insulin Aspart (Novolog) 100 Unit/Ml Vial) 0 unit SQ Q6HR [facility]; Protocol Last Admin: 07/25/21 12:24 Dose: 4 unit Lorazepam (Lorazepam 2 Mg/Ml Inj) 1 mg IV Q6HR PRN PRN Reason: Agitation Last Admin: 07/24/21 11:25 Dose: 1 mg Methylprednisolone Sodium Succinate (Methylprednisolone Sod Succi 40 Mg/Ml 1 Ml Vial) 40 mg IV Q12HR [facility] Last Admin: 07/25/21 08:38 Dose: 40 mg Miscellaneous Information (Phosphorus Replacement Protoco 1 Each Misc) 1 each MISCELLANE DAILY PRN; Protocol PRN Reason: Per Protocol Miscellaneous Information (Potassium Replacement Protocol 1 Each Misc) 1 each MISCELLANE DAILY PRN; Protocol PRN Reason: Per Protocol Nicotine (Nicotine 21mg/24hr Patch) 1 patch TRANSDERM DAILY [facility] Last Admin: 07/25/21 08:36 Dose: 1 patch Pantoprazole Sodium (Pantoprazole 40 Mg/10 Ml Vial) 40 mg IVP DAILY [facility] Last Admin: 07/25/21 08:37 Dose: 40 mg Polymyxin/Trimethoprim Sulfate (Polymyxin B-Trimethoprim Sulf (10,000-1) Ophth Drops 10 Ml Btl) 1 drops BOTH EYES Q4HR [facility] Stop: 07/28/21 16:01 Last Admin: 07/25/21 12:25 Dose: 1 drops PHYSICAL EXAMINATION: GENERAL: The patient is intubated,. Obese. HEENT: Pupils are 4+ in size. EOMI. Mild crusting noted around the eyes. No conjunctival pallor. Normocephalic, atraumatic. No pharyngeal erythema. No thyromegaly. Poor dentition. He does wear top dentures which are currently not in place. CARDIOVASCULAR: S1 and S2 present. No murmurs, rubs, or gallops. PULMONARY: Chest is diminished. ABDOMEN: Soft, nontender, nondistended, normoactive bowel sounds. No palpable organomegaly. MUSCULOSKELETAL: No joint swelling or deformity. EXTREMITIES: No cyanosis, clubbing, or pedal edema. NEUROLOGICAL: Intubated unable to complete full neurological exam. SKIN: Generalized rash Assessment: Acute hypoxic and hypercarbic respiratory failure secondary to COPD exacerbation currently intubated in ICU, fio2 50% Rule out aspiration pneumonia with atlectasis on xray Fluid overload, on IV lasix Conjunctivitis with eye crusting History of asthma, COPD History of hypertension Diabetes Mellitus type 2 with hypoglycemia on admission, improved Proteinuria Hematuria, which is resolving possibly due to IDC insertion History Bipolar / ADD / Depression with suicidal ideations on admission was initially on mental health unit on court ordered evaluation. History of spina bifida History of spinal stenosis Obesity Chronic daily nicotine use GI Prophylaxis DVT Prophylaxis Full Code Plan: Patient is being monitored closely in the ICU he is still in critical condition. Continues on mechanical vent with an FiO2 of 50% and PEEP is 5 Continues on IV zosyn IV steroids, Duonebs, pulmicort Continues on IV lasix, increased to Q8h today. Continues on Cleviprex and propofol, resumed on home Klonopin Psychiatry following Recommend to continue with kurt-nutrition Sedation holiday being conducted to assess weaning parameters along with mental status per pulmonary performance consultant Continue all other supportive care Speech evaluation pending Follow up AM labs Continue with psychiatry recommendations Social work consultation. The impression and plan of care has been dictated by Charmaine Minor, Nurse Practitioner as directed. Dr. Jonny MD I have performed a history and examination and MDM of this patient, discussed the same with the dictator, and agree with the dictator's assessment and plan as written ,documented as a scribe. Based on total visit time, I have performed more than 50% of the visit. Objective - Vital Signs Vital signs: Vital Signs Temp 98.6 F 07/25/21 04:00 Pulse 48 L 07/25/21 08:39 Resp 16 07/25/21 07:00 BP 155/72 07/24/21 23:58 Pulse Ox 94 L 07/25/21 07:00 FiO2 50 07/25/21 07:15 Intake & Output 07/24/21 07/25/21 07/25/21 18:59 06:59 18:59 Intake Total 6237.430 3267 393.767 Output Total 3810 1925 325 Balance -2521.379 -828 68.767 Intake: IV 546 353 159 Piperacillin-Tazobactam 3 200 100 100 .375 gm In Sodium Chloride 0.9% 100 ml @ 25 mls/hr IVPB Q8HR [facility] Rx# :[id number] Potassium Chloride 10 meq 100 In Water For Injection 1 100ml.bag @ 100 mls/hr IVPB Q1H [facility] Rx#: [id number] Pressure Bag (0.9 Sodium 36 33 9 Chloride) Sodium Chloride 0.9% 1, 210 220 50 000 ml @ 20 mls/hr IV . Q24H [facility] Rx#:[id number] Intake, IV Titration 484.621 500 132.767 Amount Clevidipine Butyrate 25 21.799 32.767 mg In Empty Bag 1 bag @ 1 MG/HR 2 mls/hr IV .Q24H [facility] Rx#:[id number] propofoL 1,000 mg In 462.822 500 100 Empty Bag 1 bag @ 5 MCG/ KG/MIN 2.918 mls/hr IV . Q24H [facility] Rx#:[id number] Tube Feeding 168 154 42 Other 90 90 60 Output: Urine 6175 2083 816 Other: Voiding Method Indwelling Catheter Indwelling Catheter ABP, PAP, CO, CI - Last Documented Arterial Blood Pressure 150/61 - Labs CBC & Chem 7: 07/25/21 05:35 07/25/21 05:35 Labs: Abnormal Lab Results - Last 24 Hours (Table) 07/24/21 07/24/21 07/24/21 Range/Units 12:27 18:05 23:54 RBC (4.30-5.90) m/uL Hct (39.0-53.0) % MCHC (31.0-37.0) g/dL RDW (11.5-15.5) % Lymphocytes # (1.0-4.8) k/uL ABG pH (7.35-7.45) ABG pCO2 (35-45) mmHg ABG pO2 (83-108) mmHg ABG HCO3 (21-25) mmol/L ABG Total CO2 (19-24) mmol/L Chloride (98-107) mmol/L Carbon Dioxide (22-30) mmol/L BUN (9-20) mg/dL Creatinine (0.66-1.25) mg/dL Glucose (74-99) mg/dL POC Glucose (mg/dL) 166 H 163 H 162 H (75-99) mg/dL 07/25/21 07/25/21 07/25/21 Range/Units 05:35 05:35 06:02 RBC 6.45 H (4.30-5.90) m/uL Hct 54.7 H (39.0-53.0) % MCHC 30.0 L (31.0-37.0) g/dL RDW 17.3 H (11.5-15.5) % Lymphocytes # 0.6 L (1.0-4.8) k/uL ABG pH 7.49 H (7.35-7.45) ABG pCO2 52 H (35-45) mmHg ABG pO2 71 L (83-108) mmHg ABG HCO3 39 H (21-25) mmol/L ABG Total CO2 41 H (19-24) mmol/L Chloride 97 L (98-107) mmol/L Carbon Dioxide 38 H (22-30) mmol/L BUN 32 H (9-20) mg/dL Creatinine 0.41 L (0.66-1.25) mg/dL Glucose 193 H (74-99) mg/dL POC Glucose (mg/dL) (75-99) mg/dL Microbiology - Last 24 Hours (Table) 07/18/21 16:54 Blood Culture - Final Blood No Growth after 144 hours 07/18/21 16:45 Blood Culture - Final Blood No Growth after 144 hours
[2021-07-25 18:05] LABS: Glucose,Whole Blood 131 mg/dL (75-99)
[2021-07-25] MEDS: POTASSIUM CHLORIDE 20 MEQ in WATER FOR INJECTION 1 100ML.BAG IVPB SCH ×2 (20:05→21:25)
[2021-07-25] MEDS: ATORVASTATIN 20 MG TAB PO SCH (20:11)
[2021-07-25 20:24] LABS: ABG Base Excess 12.7 mmol/L; ABG HCO3 38 mmol/L (21-25); ABG Oxygen Saturation 95.3 % (94-97); ABG PCO2 68 mmHg (35-45); ABG PH 7.36 (7.35-7.45); ABG PO2 83 mmHg (83-108); ABG TCO2 40 mmol/L (19-24); Allen Test Performed? Yes
--- NOTE | 2021-07-25 20:39 | XR ---
EXAMINATION TYPE: XR chest 1V portable DATE OF EXAM: 07/25/2021 COMPARISON: Today HISTORY: Short of breath TECHNIQUE: Single view FINDINGS: There is some pulmonary vascular congestion. There is a right jugular catheter with tip in the right atrium. There is atelectasis at the lung bases. There are chest leads. Heart appears enlarg ed. IMPRESSION: Congestive heart failure with atelectasis and pleural fluid at the lung bases. No change.
[2021-07-25 23:02] LABS: Glucose,Whole Blood 152 mg/dL (75-99)
[2021-07-26] MEDS: POLYMYXIN B-TRIMETHOPRIM SULF (10,000-1) OPHTH DROPS 10 ML BTL BOTH EYES SCH ×5 (03:53→20:00)
[2021-07-26] MEDS: SODIUM CHLORIDE 0.9% 1,000 ML IV SCH ×2 (04:36→17:37)
[2021-07-26] MEDS: INSULIN ASPART (NovoLOG) 100 UNIT/ML VIAL SQ SCH ×4 (05:36→21:43)
[2021-07-26 05:38] LABS: Glucose,Whole Blood 123 mg/dL (75-99)
[2021-07-26] MEDS: DEXMEDETOMIDINE/0.9% NACL(PMX) 400 MCG in EMPTY BAG 1 BAG IV SCH ×2 (05:38→10:30)
[2021-07-26 05:44] LABS: Anisocytosis Slight; Basophils # (A) 0.1 k/uL (0-0.2); Basophils % (A) 0 %; Eosinophils # (A) 0.1 k/uL (0-0.7); Eosinophils % (A) 0 %; HGB 16.9 gm/dL (13.0-17.5); Hypochromasia Marked; Lymphocytes # (A) 0.9 k/uL (1.0-4.8); Lymphocytes % (A) 4 %; MCHC 30.1 g/dL (31.0-37.0); MCV 86.2 fL (80.0-100.0); Mean Platelet Volume 7.9; Monocytes # (A) 0.8 k/uL (0-1.0); Monocytes % (A) 4 %; Neutrophils # (A) 20.7 k/uL (1.3-7.7); Neutrophils % (A) 92 %; Platelet Count 152 k/uL (150-450); Poikilocytosis Slight; RBC 6.51 m/uL (4.30-5.90); RDW 16.9 % (11.5-15.5); WBC 22.6 k/uL (3.8-10.6)
[2021-07-26 05:54] LABS: HCT 56.1 % (39.0-53.0)
[2021-07-26 06:47] LABS: Amorphous Sediment,Urine Rare /hpf; Appearance,Urine Turbid (Clear); Bilirubin,Urine Negative (Negative); Blood,Urine Large (Negative); Color,Urine Yellow; Glucose,Urine (UA) 2+ (Negative); Ketones,Urine Negative (Negative); Leukocyte Esterase,Urine Negative (Negative); Mucus,Urine Rare /hpf; Nitrite,Urine Negative (Negative); Protein,Urine Trace (Negative); RBC,Urine >182 /hpf (0-5); Specific Gravity,Urine 1.019 (1.001-1.035); WBC,Urine 2 /hpf (0-5)
[2021-07-26 06:54] LABS: African American GFR (CKD) >90 (>60 ml/min/1.73 sqM); Anion Gap 4 mmol/L; Blood Urea Nitrogen 25 mg/dL (9-20); Calcium 8.6 mg/dL (8.4-10.2); Carbon Dioxide 38 mmol/L (22-30); Chloride 100 mmol/L (98-107); Glucose 137 mg/dL (74-99); Non-African American GFR(CKD) >90 (>60 ml/min/1.73 sqM); Potassium 3.2 mmol/L (3.5-5.1); Sodium 142 mmol/L (137-145)
--- NOTE | 2021-07-26 08:13 | XR ---
EXAMINATION TYPE: XR chest 1V portable DATE OF EXAM: 07/26/2021 COMPARISON: Chest x-ray dated 07/25/2021 HISTORY: Abnormal chest x-ray, tube placement TECHNIQUE: Single frontal view of the chest is obtained. FINDINGS: Right jugular central venous catheter shows the distal tip over the right atrium. No evide nt pneumothorax. Cardiac mediastinal silhouette shows a similar appearance. Bibasilar increased atten uation persists, there may be some improvement in aeration. IMPRESSION: Suspect some improvement in aeration, lung volume as compared to prior exam.
[2021-07-26] MEDS: methylPREDNISolone SOD SUCCI 40 MG/ML 1 ML VIAL IV SCH (08:47)
[2021-07-26] MEDS: FUROSEMIDE 10 MG/ML 4 ML VIAL IV SCH ×2 (08:47→16:38)
[2021-07-26] MEDS: PANTOPRAZOLE 40 MG/10 ML VIAL IVP SCH (08:47)
[2021-07-26] MEDS: ENOXAPARIN 40 MG/0.4 ML SYRINGE SQ SCH (08:48)
[2021-07-26] MEDS: PIPERACILLIN-TAZOBACTAM 3.375 GM in SODIUM CHLORIDE 0.9% 100 ML IVPB SCH ×2 (08:48→16:39)
[2021-07-26] MEDS: POTASSIUM CHLORIDE 20 MEQ in WATER FOR INJECTION 1 100ML.BAG IVPB SCH ×3 (08:48→16:31)
[2021-07-26] MEDS: clonazePAM 1 MG TAB PO SCH ×3 (08:49→21:46)
[2021-07-26] MEDS: BUDESONIDE 1 MG/2 ML NEBU INHALATION SCH ×2 (08:51→19:47)
[2021-07-26] MEDS: FORMOTEROL FUMARATE 20 MCG/2 ML NEBU INHALATION SCH ×2 (08:51→19:47)
[2021-07-26] MEDS: IPRATROPIUM-ALBUTEROL 3 ML NEB INHALATION SCH ×4 (08:51→19:47)
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
[2021-07-26 14:49] LABS: Glucose,Whole Blood 137 mg/dL (75-99)
[2021-07-26 16:19] LABS: ABG Base Excess 11.6 mmol/L; ABG HCO3 37 mmol/L (21-25); ABG PCO2 61 mmHg (35-45); ABG PH 7.39 (7.35-7.45); ABG PO2 62 mmHg (83-108); ABG TCO2 38 mmol/L (19-24); Allen Test Performed? Yes
[2021-07-26] MEDS: NICOTINE 21MG/24HR PATCH TRANSDERM SCH (16:30)
[2021-07-26] MEDS: methylPREDNISolone SOD SUCCI 125 MG/2 ML VIAL IV SCH ×2 (16:31→21:46)
[2021-07-26 18:04] LABS: Glucose,Whole Blood 206 mg/dL (75-99)
[2021-07-26 21:43] LABS: Glucose,Whole Blood 128 mg/dL (75-99)
[2021-07-26] MEDS: ATORVASTATIN 20 MG TAB PO SCH (21:46)
[2021-07-27] MEDS: PIPERACILLIN-TAZOBACTAM 3.375 GM in SODIUM CHLORIDE 0.9% 100 ML IVPB SCH ×3 (00:32→16:09)
[2021-07-27] MEDS: POLYMYXIN B-TRIMETHOPRIM SULF (10,000-1) OPHTH DROPS 10 ML BTL BOTH EYES SCH ×6 (00:36→20:58)
[2021-07-27] MEDS: FUROSEMIDE 10 MG/ML 4 ML VIAL IV SCH ×2 (00:36→07:49)
[2021-07-27] MEDS: DEXMEDETOMIDINE/0.9% NACL(PMX) 400 MCG in EMPTY BAG 1 BAG IV SCH (02:49)
[2021-07-27] MEDS: methylPREDNISolone SOD SUCCI 125 MG/2 ML VIAL IV SCH ×4 (03:24→20:47)
[2021-07-27 06:20] LABS: African American GFR (CKD) >90 (>60 ml/min/1.73 sqM); Anion Gap 6 mmol/L; Blood Urea Nitrogen 41 mg/dL (9-20); Calcium 9.2 mg/dL (8.4-10.2); Carbon Dioxide 38 mmol/L (22-30); Chloride 97 mmol/L (98-107); Glucose 199 mg/dL (74-99); Non-African American GFR(CKD) >90 (>60 ml/min/1.73 sqM); Potassium 3.8 mmol/L (3.5-5.1); Sodium 141 mmol/L (137-145)
[2021-07-27 06:34] LABS: Glucose,Whole Blood 185 mg/dL (75-99)
[2021-07-27] MEDS: INSULIN ASPART (NovoLOG) 100 UNIT/ML VIAL SQ SCH ×4 (06:34→20:46)
[2021-07-27 06:40] LABS: Anisocytosis Slight; Basophils % (A) 0 %; Eosinophils % (A) 0 %; HGB 17.6 gm/dL (13.0-17.5); Hypochromasia Marked; Lymphocytes # (A) 0.5 k/uL (1.0-4.8); Lymphocytes % (A) 4 %; MCH 26.2 pg (25.0-35.0); MCHC 30.1 g/dL (31.0-37.0); MCV 86.9 fL (80.0-100.0); Mean Platelet Volume 7.5; Monocytes # (A) 0.3 k/uL (0-1.0); Monocytes % (A) 2 %; Neutrophils # (A) 12.3 k/uL (1.3-7.7); Neutrophils % (A) 93 %; Platelet Count 131 k/uL (150-450); Poikilocytosis Slight; RBC 6.72 m/uL (4.30-5.90); RDW 16.9 % (11.5-15.5); WBC 13.2 k/uL (3.8-10.6)
[2021-07-27 06:50] LABS: HCT 58.3 % (39.0-53.0)
--- NOTE | 2021-07-27 07:35 | XR ---
EXAMINATION TYPE: XR chest 1V portable DATE OF EXAM: 07/27/2021 COMPARISON: Chest x-ray 07/26/2021 HISTORY: COPD TECHNIQUE: Single frontal view of the chest is obtained. FINDINGS: Right jugular central venous catheter is present, distal tip is overlying the right atrium . Cardiac mediastinal silhouette shows a stable appearance. Bibasilar density persists, the interstit ium is mildly increased. Lung volumes are low and the patient is rotated. No evident pneumothorax or pleural effusion. IMPRESSION: There may be a component of interstitial edema, correlate to exclude pneumonia versus at electasis, follow-up PA and lateral chest x-ray when stable.
[2021-07-27] MEDS: ENOXAPARIN 40 MG/0.4 ML SYRINGE SQ SCH (07:51)
[2021-07-27] MEDS: PANTOPRAZOLE 40 MG/10 ML VIAL IVP SCH (07:51)
[2021-07-27] MEDS: NICOTINE 21MG/24HR PATCH TRANSDERM SCH (07:53)
[2021-07-27] MEDS: clonazePAM 1 MG TAB PO SCH (08:04)
[2021-07-27] MEDS: BUDESONIDE 1 MG/2 ML NEBU INHALATION SCH ×2 (08:40→20:36)
[2021-07-27] MEDS: IPRATROPIUM-ALBUTEROL 3 ML NEB INHALATION SCH ×4 (08:40→20:36)
[2021-07-27] MEDS: FORMOTEROL FUMARATE 20 MCG/2 ML NEBU INHALATION SCH ×2 (08:40→20:36)
--- NOTE | 2021-07-27 09:48 | P.PN ---
Subjective Progress Note Date: 07/27/21 This is a 45-year-old male who initially was evaluated on [facility] where he was admitted as a court ordered petition for medication adjustments. Patient has a past medical history significant for bipolar type I, ADD, asthma, COPD, diabetes mellitus, hypertension, gastroesophageal reflux disease, spinal bifida with spinal stenosis, patient is a daily smoker since the age of 11, currently smoking 2 packs per day. He denies any alcohol use, denies illicit drug use. States he lives with his mother, uses a wheel chair for transportation. He reportedly has been unable to care for his basic needs, and presents with poor hygiene. He is currently pending psychiatric evaluation. He was transferred to the medical floor as he was found to have significant shortness of breath making it difficult to carry on a conversation. He reports this has been going on at home for 2 weeks now and was evaluated at his PCP's office. He reports 2-3 days ago the shortness of breath worsened and he has clear nasal drainage and congestion. He denies fever or chills. Denies chest pain. Denies nausea, vomiting, diarrhea. Initial diagnostics for admission to [facility] include EKG showing sinus rhythm with a heart rate of 72, there is no ST or T wave abnormalities noted. Lab on admission showing white count 12.1, hemoglobin 17.7, hematocrit is elevated at 60.9. Chemistry panel showing sodium 138, potassium 4.8, CO2 34, BUN 17, creatinine 0.63, glucose of 105. Urinalysis positive for 1+ protein, 4+ glucose, 1+ ketone with occasional mucus. His urine drug toxicology is positive for tricyclic antidepressants, benzodiazepines. Covid is not detected. Chest xray showing new right basilar acute infiltrate and or atelectasis. He was found to be hypoxic on room air in the 90s, reports to not wearing any home oxygen. He required 4-6 L of oxygen to stabilize and was transferred to the medical floor where he was re-evaluated. He was started on IV solu-medrol, and duonebs. Pulmonary services were consulted for evaluation. Patient appears to have worsening hypoxia when sleeping, possibility of an obstructive sleep apnea. He is lethargic today as well, arrousable to voice, stopped the klonopin and decreased seroquel. Final med reqs from psychiatry. D-Dimer negative, procalcitonin 0.08. Influenza A and B also not detected. Current vital signs include heart rate of 90, blood pressure 133/79, 96% on 4L nasal cannula. 07/20/2021 Patient evaluated today on BiPAP. Yesterday afternoon he was quite lethargic, seroquel was decreased down to 25 mg PO HS and klonopin was discontinued for now. Any additional recommendations reguarding his psychiatric medications from psych consultation as patient was on a court order petition for mental health treatment. ABG's were completed yesterday showing pH of 7.25, PCO2 of 92, PO2 of 71, HCO3 of 40, total CO2 43, ox saturation 93.6. He was placed on a 40% fio2 BiPAP. He continues with 1:1 Sitter at the bedside as well. Labs today showing a white count of 15.20, hgb 16.1, hematocrit has improved slightly to 57.4. Sodium 142, potassium 5.4, BUN 19, creat 0.5. Blood glucose is in the 100-90s. We are continuing to hold his home insulin, metformin and actos, and covering with sliding scale as needed. He continues on jardiance. Vital signs today showing temp of 98.1, heart rate 82, blood pressure 128/77, oxygen saturation of 94% on BiPAP. Blood cultures are showing negative. He was started on empiric antibiotic coverage with zosyn today by pulmonary team, he continues also IV steroids which were increased to every 8 hours today, as well as duonebs and pulmicort. Patient was evaluated by pulmonary team today and is being transferred to the ICU this morning for closer monitoring regarding his respiratory status. He is answering questions appropriately, however states he was at his moms house. He is more alert, and moving all extremities with equal strength. He also continues with watery drainage from his eyes. He is complaining of back pain today. 07/21/2021 Patient is evaluated today in the ICU, he was intubated yesterday at 1730, his PCO2 has come down to 40, current fi02 65%. White count today 10.2, sodium 140, potassium 2.8, BUN 35, creat 0.54, blood glucose in the 160s. Critical phosphorous yesterday at 0.7 was replaced and now 2.1, and will receive additional IV phosphorous today. AST 15, albumin 3.3. Patient had hematuria and repeat urinalysis was done showing 1+ protein, 4+glucose, 4+ketones, large blood, 1+bili, >182 RBC. Lovenox was discontinued. Platelet count is stable at 229. He is receiving sedation with propofol. He is also receiving IV ativan and had required haldol for acute agitation. He will be started on a versed infusion for agitation. On IV zosyn, IV solu-medrol, duonebs. He has been started on tube feedings. Continues with 1:1 sitter and followed by psychiatry. He is being followed closely by pulmonary tractor sweeper operator services. 07/22/2021 Patient evaluated today in the ICU on 50% FiO2, he continues on propofol clevip asad and versed infusion. No BM since the although he has not had much oral intake. Will give a one time dose of lactulose today, and he continues on tube feedings at rate of 20 pending dietary evaluation tomorrow as there is no goal documented. Labs today showing white count 7.4, platelets 226, hgb 16.0, hct 53.6. Sodium 141, potassium 4.1, BUN 36, creat 0.46, blood glucose 131. AST 12, albumin 3.0. BNP 886. Chest xray today showing cardiomegaly, persistent bilateral acute infiltrates and or atelectasis and likely small tiny bilateral pleural effusions. Stable from one day earlier. He has remained afebrile, heart rate 60's, blood pressure 136/57, 95% on room air. Sputum culture and blood culture pending. He is on IV zosyn. Urine output is about 27 mls per hour in the last 24 hours, urine is brown in color, although creat is low normal. He continues on IV fluids at 100 mls per hour. 07/23/2021 Patient evaluated today continues in the ICU, intubated with fi02 of 50%. He continues on Versed infusion and klonopin was resumed today with plans to attempt to wean off the versed. He continues on luvox, and seroquel remains discontinued. Per RN patients sister was at the bedside and states that patient does not have a safe home environment with his mother and social work was cons ulted. Chest xray today showing basilar atelectasis versus pneumonia, difficult to exclude small effusions. Continues on IV Zosyn, IV steroids decreased to BID today. Patient was also started on IV lasix and fluids discontinued today by pulmonary team. He continues on IV propofol and IV cleviprex. Continues on parenteral feedings. Has not had a BM yet received a dose of lactulose yesterday, will receive another dose today no BM since the . Abdomen is soft and nontender and he has normoactive bowel sounds. His eyes are improving and look better today again, redness is resolving and there is less crusting noted today. Labs today showing WBC 8.6, platelet count 205, neutrophils 7.9. Repeat ABG's today showing pCO2 51, HCO3 33, total CO2 35, O2 saturation 97.3. Sodium 142, potassium 4.3, BUN 35, creat 0.51, AST 12 ALT 7, alk phos 65, blood glucose in the 140s. 07/24/2021 Patient remains in the ICU, he is intubated on FiO2 of 50%. He was weaned off the versed gtt and resumed on oral klonopin. Continues on IV zosyn, IV solu- medrol, IV lasix. He is receiving IV cleviprex and IV propofol. Also receiving IV ativan push for breakthrough agitation. He is awake today, his eyes are openi ng, he was trying to sit up. His weight is up today and lasix was increased to every 8 hours, fluids remain at KVO. Repeat chest xray today showing bibasilar effusions and associated atelectasis vs. pneumonia or edema. Correlate for congestive heart failure. Procalcitonin follow up yesterday 0.04. He is bradycardic today heart rate in the 50's, blood pressure 124/68, afebrile, 95% oxygenation. Echocardiogram has been ordered. Continues on enteral nutrition, he is at goal. Blood sugars in the 130-160 range, and is receiving novolog for coverage. If patient continues with breakthrough agitation can resume seroquel at HS. 07/25/2021 Patient is seen in follow-up continues to be in the ICU on sedation and mechanical ventilation with an FiO2 of 50% and PEEP is 5. Sedation holidays and process to assess weaning parameters along with mentation. Pulmonary tractor sweeper operator along with psychiatry following closely. Patient is also continued on IV Lasix and will continue and monitor intake and output closely. Klonopin has been resumed and will continue for now. Psychiatry also following him recommend continuing with current medication regimen and appreciate input and recommendations. Patient continues with anterior nutrition and will continue. We'll have physical therapy evaluate the patient. Patient also continues on IV Zosyn empirically with the possibility of aspiration pneumonia. Recommend repeat labs and follow-up chest x-ray. 07/26/2021 Patient is seen in follow-up this morning continues to be in the ICU and recently extubated and continued on BiPAP. Patient does have a sitter at the bedside as patient continues to attempt to remove the BiPAP mask. White blood count jumped from 6.5-22.6 and hemoglobin is stable at 16.9, sodium is 142 and, potassium is 3.2 and will replace per protocol, pro-calcitonin 0.20 and urinalysis was sent and will await cultures. Sputum culture finalized with normal respiratory radha and no staph aureus or Pseudomonas noted. Patient will continue on IV Zosyn for now and await cultures. Patient also continues on IV steroids along with breathing inhalational treatments with pulmonary following closely. Patient requiring some Precedex and some oral psychiatric medications have been resumed. Chest x-ray shows suspect some improvement in aeration with lung volume as compared to prior exam. BiPAP is 50% FiO2 with PEEP of 5. Archie haywood will need physical therapy for evaluation and will also consult social work and appreciate input and recommendations from psychiatry. Patient is afebrile. Patient denying chest pain. Unable to complete review of systems as patient is currently intubated. Active Medications Acetaminophen (Acetaminophen Tab 325 Mg Tab) 650 mg PO Q6HR PRN PRN Reason: Fever and/ or Mild Pain Albuterol/Ipratropium (Ipratropium-Albuterol 3 Ml Neb) 3 ml INHALATION RT-Q2H PRN PRN Reason: Shortness Of Breath Or Wheezing Last Admin: 07/24/21 23:26 Dose: 3 ml Albuterol/Ipratropium (Ipratropium-Albuterol 3 Ml Neb) 3 ml INHALATION RT-QID VINCE Last Admin: 07/27/21 08:40 Dose: 3 ml Atorvastatin Calcium (Atorvastatin 20 Mg Tab) 20 mg PO HS VINCE Last Admin: 07/26/21 21:46 Dose: 20 mg Budesonide (Budesonide 1 Mg/2 Ml Nebu) 1 mg INHALATION RT-BID [facility] Last Admin: 07/27/21 08:40 Dose: 1 mg Clonazepam (Clonazepam 1 Mg Tab) 1 mg PO TID [facility] Last Admin: 07/27/21 08:04 Dose: 1 mg Enoxaparin Sodium (Enoxaparin 40 Mg/0.4 Ml Syringe) 40 mg SQ DAILY VINCE Last Admin: 07/27/21 07:51 Dose: 40 mg Fluvoxamine Maleate (Fluvoxamine 50 Mg Tab) 50 mg PO DAILY VINCE Last Admin: 07/27/21 07:52 Dose: 50 mg Fluvoxamine Maleate (Fluvoxamine 50 Mg Tab) 100 mg PO HS [facility] Last Admin: 07/26/21 21:45 Dose: 100 mg Formoterol Fumarate (Formoterol Fumarate 20 Mcg/2 Ml Nebu) 20 mcg INHALATION RT-BID [facility] Last Admin: 07/27/21 08:40 Dose: 20 mcg Furosemide (Furosemide 10 Mg/Ml 4 Ml Vial) 40 mg IV Q8HR VINCE Last Admin: 07/27/21 07:49 Dose: 40 mg Haloperidol Lactate (Haloperidol Lactate 5 Mg/Ml 1 Ml Vial) 4 mg IVP Q4H PRN PRN Reason: Agitation or Acute Psychosis Last Admin: 07/24/21 15:55 Dose: 4 mg Piperacillin Sod/Tazobactam (Sod 3.375 gm/ Sodium Chloride) 100 mls @ 25 mls/hr IVPB Q8HR VINCE; Protocol Last Admin: 07/27/21 07:52 Dose: 25 mls/hr Sodium Chloride (Saline 0.9%) 1,000 mls @ 20 mls/hr IV .Q24H VINCE Last Admin: 07/26/21 17:37 Dose: Not Given Clevidipine 25 mg/ IV Solution 50 mls @ 2 mls/hr IV .Q24H [facility]; Protocol Last Titration: 07/25/21 19:57 Dose: Infused Dexmedetomidine HCl 400 mcg/ (IV Solution) 100 mls @ 4.815 mls/hr IV .[id number] VINCE; Protocol Last Titration: 07/27/21 05:05 Dose: 0.7 mcg/kg/hr, 16.853 mls/hr Insulin Aspart (Insulin Aspart (Novolog) 100 Unit/Ml Vial) 0 unit SQ ACHS VINCE; Protocol Last Admin: 07/27/21 06:34 Dose: 4 unit Lorazepam (Lorazepam 2 Mg/Ml Inj) 1 mg IV Q6HR PRN PRN Reason: Agitation Last Admin: 07/24/21 11:25 Dose: 1 mg Methylprednisolone Sodium Succinate (Methylprednisolone Sod Succi 125 Mg/2 Ml Vial) 60 mg IV Q6H [facility] Last Admin: 07/27/21 07:51 Dose: 60 mg Miscellaneous Information (Phosphorus Replacement Protoco 1 Each Misc) 1 each MISCELLANE DAILY PRN; Protocol PRN Reason: Per Protocol Miscellaneous Information (Potassium Replacement Protocol 1 Each Misc) 1 each MISCELLANE DAILY PRN; Protocol PRN Reason: Per Protocol Nicotine (Nicotine 21mg/24hr Patch) 1 patch TRANSDERM DAILY [facility] Last Admin: 07/27/21 07:53 Dose: 1 patch Pantoprazole Sodium (Pantoprazole 40 Mg/10 Ml Vial) 40 mg IVP DAILY [facility] Last Admin: 07/27/21 07:51 Dose: 40 mg Polymyxin/Trimethoprim Sulfate (Polymyxin B-Trimethoprim Sulf (10,000-1) Ophth Drops 10 Ml Btl) 1 drops BOTH EYES Q4HR [facility] Stop: 07/28/21 16:01 Last Admin: 07/27/21 07:52 Dose: 1 drops PHYSICAL EXAMINATION: GENERAL: The patient is recently extubated yesterday on BiPAP at 50%,. Obese. HEENT: Pupils are 4+ in size. EOMI. Mild crusting noted around the eyes. No conjunctival pallor. Normocephalic, atraumatic. No pharyngeal erythema. No thyromegaly. Poor dentition. He does wear top dentures which are currently not in place. CARDIOVASCULAR: S1 and S2 present. No murmurs, rubs, or gallops. PULMONARY: Chest is diminished. Some scattered rhonchi and crackles noted ABDOMEN: Soft, nontender, nondistended, normoactive bowel sounds. No palpable organomegaly. MUSCULOSKELETAL: No joint swelling or deformity. EXTREMITIES: No cyanosis, clubbing, or pedal edema. NEUROLOGICAL: Continues to be restless requiring sitter and anxious at times with weakness SKIN: Generalized rash Assessment: Acute hypoxic and hypercarbic respiratory failure secondary to COPD exacerbation recently extubated on 525 now on BiPAP in ICU, fio2 50% Rule out aspiration pneumonia with atlectasis on xray Fluid overload, on IV lasix Conjunctivitis with eye crusting History of asthma, COPD History of hypertension Diabetes Mellitus type 2 with hypoglycemia on admission, improved Proteinuria Hematuria, which is resolving possibly due to IDC insertion History Bipolar / ADD / Depression with suicidal ideations on admission was initially on mental health unit on court ordered evaluation. History of spina bifida History of spinal stenosis Obesity Chronic daily nicotine use GI Prophylaxis DVT Prophylaxis Full Code Plan: Patient is being monitored closely in the ICU he is still in critical condition. Continues on BiPAP and Extubated yesterday on 07/25/2021 with an FiO2 of 50% and PEEP is 5 Continues on IV zosyn IV steroids, Duonebs, pulmicort Continues on IV lasix, increased to Q8h today. Continues on Cleviprex and resumed on home Klonopin Psychiatry following Recommend to continue with enteral nutrition Sitter at the bedside as well Continue all other supportive care Speech evaluation pending Follow up AM labs Continue with psychiatry recommendations Social work consultation. The impression and plan of care has been dictated by Charmaine Minor, Nurse Practitioner as directed. Dr. Jonny MD I have performed a history and examination and MDM of this patient, discussed the same with the dictator, and agree with the dictator's assessment and plan as written ,documented as a scribe. Based on total visit time, I have performed more than 50% of the visit. Objective - Vital Signs Vital signs: Vital Signs Temp 97.6 F 07/26/21 07:38 Pulse 60 07/26/21 09:13 Resp 30 H 07/26/21 09:13 BP 124/78 07/26/21 07:51 Pulse Ox 93 L 07/26/21 08:52 FiO2 70 07/26/21 08:52 Intake & Output 07/25/21 07/26/21 07/26/21 18:59 06:59 18:59 Intake Total 876.616 467.828 240 Output Total 3500 2605 160 Balance -0253.384 -2137.172 80 Weight 96.3 kg Intake: IV 359 420 240 Piperacillin-Tazobactam 3 100 100 .375 gm In Sodium Chloride 0.9% 100 ml @ 25 mls/hr IVPB Q8HR [facility] Rx# :[id number] Potassium Chloride 10 meq 200 100 In Water For Injection 1 100ml.bag @ 100 mls/hr IVPB Q1H [facility] Rx#: [id number] Pressure Bag (0.9 Sodium 39 Chloride) Sodium Chloride 0.9% 1, 220 220 40 000 ml @ 20 mls/hr IV . Q24H [facility]INCE Rx#:[id number] Intake, IV Titration 299.616 47.828 Amount Clevidipine Butyrate 25 40.100 9.9 mg In Empty Bag 1 bag @ 1 MG/HR 2 mls/hr IV .Q24H [facility]INCE Rx#:[id number] propofoL 1,000 mg In 259.516 37.928 Empty Bag 1 bag @ 5 MCG/ KG/MIN 2.918 mls/hr IV . Q24H [facility]INCE Rx#:[id number] Tube Feeding 98 Other 120 Output: Urine 3500 2605 160 Other: Voiding Method Indwelling Catheter Indwelling Catheter Indwelling Catheter ABP, PAP, CO, CI - Last Documented Arterial Blood Pressure 135/66 - Labs CBC & Chem 7: 07/27/21 05:55 07/27/21 05:55 Labs: Abnormal Lab Results - Last 24 Hours (Table) 07/25/21 07/25/21 07/25/21 Range/Units 12:17 13:31 18:03 WBC (3.8-10.6) k/uL RBC (4.30-5.90) m/uL Hct (39.0-53.0) % MCHC (31.0-37.0) g/dL RDW (11.5-15.5) % Neutrophils # (1.3-7.7) k/uL Lymphocytes # (1.0-4.8) k/uL ABG pCO2 61 H (35-45) mmHg ABG pO2 79 L (83-108) mmHg ABG HCO3 37 H (21-25) mmol/L ABG Total CO2 39 H (19-24) mmol/L Potassium (3.5-5.1) mmol/L Carbon Dioxide (22-30) mmol/L BUN (9-20) mg/dL Creatinine (0.66-1.25) mg/dL Glucose (74-99) mg/dL POC Glucose (mg/dL) 182 H 131 H (75-99) mg/dL Urine Protein (Negative) Urine Glucose (UA) (Negative) Urine Blood (Negative) Urine RBC (0-5) /hpf Amorphous Sediment (None) /hpf Urine Mucus (None) /hpf 07/25/21 07/25/21 07/25/21 Range/Units 18:30 20:19 23:01 WBC (3.8-10.6) k/uL RBC (4.30-5.90) m/uL Hct (39.0-53.0) % MCHC (31.0-37.0) g/dL RDW (11.5-15.5) % Neutrophils # (1.3-7.7) k/uL Lymphocytes # (1.0-4.8) k/uL ABG pCO2 68 H (35-45) mmHg ABG pO2 (83-108) mmHg ABG HCO3 38 H (21-25) mmol/L ABG Total CO2 40 H (19-24) mmol/L Potassium 3.3 L (3.5-5.1) mmol/L Carbon Dioxide (22-30) mmol/L BUN (9-20) mg/dL Creatinine (0.66-1.25) mg/dL Glucose (74-99) mg/dL POC Glucose (mg/dL) 152 H (75-99) mg/dL Urine Protein (Negative) Urine Glucose (UA) (Negative) Urine Blood (Negative) Urine RBC (0-5) /hpf Amorphous Sediment (None) /hpf Urine Mucus (None) /hpf 07/26/21 07/26/21 07/26/21 Range/Units 05:32 05:32 05:35 WBC 22.6 H (3.8-10.6) k/uL RBC 6.51 H (4.30-5.90) m/uL Hct 56.1 H (39.0-53.0) % MCHC 30.1 L (31.0-37.0) g/dL RDW 16.9 H (11.5-15.5) % Neutrophils # 20.7 H (1.3-7.7) k/uL Lymphocytes # 0.9 L (1.0-4.8) k/uL ABG pCO2 (35-45) mmHg ABG pO2 (83-108) mmHg ABG HCO3 (21-25) mmol/L ABG Total CO2 (19-24) mmol/L Potassium 3.2 L (3.5-5.1) mmol/L Carbon Dioxide 38 H (22-30) mmol/L BUN 25 H (9-20) mg/dL Creatinine 0.62 L (0.66-1.25) mg/dL Glucose 137 H (74-99) mg/dL POC Glucose (mg/dL) 123 H (75-99) mg/dL Urine Protein (Negative) Urine Glucose (UA) (Negative) Urine Blood (Negative) Urine RBC (0-5) /hpf Amorphous Sediment (None) /hpf Urine Mucus (None) /hpf 07/26/21 Range/Units 06:35 WBC (3.8-10.6) k/uL RBC (4.30-5.90) m/uL Hct (39.0-53.0) % MCHC (31.0-37.0) g/dL RDW (11.5-15.5) % Neutrophils # (1.3-7.7) k/uL Lymphocytes # (1.0-4.8) k/uL ABG pCO2 (35-45) mmHg ABG pO2 (83-108) mmHg ABG HCO3 (21-25) mmol/L ABG Total CO2 (19-24) mmol/L Potassium (3.5-5.1) mmol/L Carbon Dioxide (22-30) mmol/L BUN (9-20) mg/dL Creatinine (0.66-1.25) mg/dL Glucose (74-99) mg/dL POC Glucose (mg/dL) (75-99) mg/dL Urine Protein Trace H (Negative) Urine Glucose (UA) 2+ H (Negative) Urine Blood Large H (Negative) Urine RBC >182 H (0-5) /hpf Amorphous Sediment Rare H (None) /hpf Urine Mucus Rare H (None) /hpf
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
[2021-07-27 11:09] LABS: Glucose,Whole Blood 222 mg/dL (75-99)
--- NOTE | 2021-07-27 13:15 | P.PN ---
Progress Note - Text Progress Note Date: 07/27/21 Interval History: Patient was seen today for psychiatric follow-up. Patient was in the ICU and sitting at the side of his bed on the chair. Patient was using a nasal cannula for oxygen today. He continues to demonstrate. Poor insight and judgment. He appears to have a brighter affect today and was more awake during conversation. He states that he is doing "okay" and is denying any complaints. He states that he slept fairly last night. He is fairly concrete and monotone. He has been taking his medications and agrees to continue taking them. He is denying any depression or anxiety today. At this time patient denies any suicidal or homical ideations, intent or plan. Patient denies any auditory, visual hallucinations and denies any paranoia or delusions. Patient denies any side effects from the medications and has been compliant with meds. Mental Status Exam: General Appearance: [Patient appears to be overweight, poor dentition, stated age is alert, attempts to cooperate.] Behavior: [Patient is calmly seated without any agitated behavior.] Attempts to cooperate. Speech: Patient's speech is fluent and nonpressured. [place] and monotone. Mood/Affect: Mood is improving mildly, affect is congruent and brighter today. Suicidality/Homicidality: Patient denies having any suicidal or homicidal ideation intent or plan. Perceptions: Patient denies any visual hallucinations [and denies any auditory hallucinations] Though content/process: [place], not endorsing any delusions or paranoia. Poverty of content. Memory and concentration: AOX3, grossly intact for the purposes of this session Judgment and insight: Chronically limited, Improving mildly Assessment Delirium, toxic-metabolic and medications as likely the cause Depressive disorder unspecified, rule out schizoaffective depressive type versus bipolar depression Nicotine dependence Plan: -At this time patient DOES NOT meet criteria for inpatient psychiatric admission. [-Patient DOES NOT have decision making capacity at this time and is unable to reason through and communicate/appreciate the risks, benefits and alternatives to treatment.] [-Delirium precautions recommended with patient including - avoiding use of narcotics and CITRIX LEAD sedatives, limit anticholinergic medications when possible, frequent re-orientation, minimize use of restraints, open window shades during the day and close them at night] -Would recommend the following medication changes/additions: Added Seroquel 25 mg daily at bedtime for sleep/mood stabilization. Continue with current medications as prescribed. Continue with monitoring for benzodiazepine withdrawal. Continue with Klonopin when necessary. -Patient has court hearing date set for August 01 for MH treatment. [-Communicated plan to patient's nurse] -Will continue to follow along as needed -Please contact with any questions.
[2021-07-27] MEDS: clonazePAM 0.5 MG TAB PO PRN (16:09)
[2021-07-27 16:54] LABS: Glucose,Whole Blood 152 mg/dL (75-99)
[2021-07-27] MEDS: CLEVIDIPINE BUTYRATE 25 MG in EMPTY BAG 1 BAG IV SCH (16:56)
[2021-07-27 17:42] LABS: Glucose,Whole Blood 162 mg/dL (75-99)
[2021-07-27 20:37] LABS: Glucose,Whole Blood 161 mg/dL (75-99)
[2021-07-27] MEDS: QUEtiapine 25 MG TAB PO SCH (20:46)
[2021-07-27] MEDS: ATORVASTATIN 20 MG TAB PO SCH (20:46)
--- NOTE | 2021-07-28 00:10 | P.PN ---
Subjective Progress Note Date: 07/27/21 This is a 45-year-old male who initially was evaluated on [facility] where he was admitted as a court ordered petition for medication adjustments. Patient has a past medical history significant for bipolar type I, ADD, asthma, COPD, diabetes mellitus, hypertension, gastroesophageal reflux disease, spinal bifida with spinal stenosis, patient is a daily smoker since the age of 11, currently smoking 2 packs per day. He denies any alcohol use, denies illicit drug use. States he lives with his mother, uses a wheel chair for transportation. He reportedly has been unable to care for his basic needs, and presents with poor hygiene. He is currently pending psychiatric evaluation. He was transferred to the medical floor as he was found to have significant shortness of breath making it difficult to carry on a conversation. He reports this has been going on at home for 2 weeks now and was evaluated at his PCP's office. He reports 2-3 days ago the shortness of breath worsened and he has clear nasal drainage and congestion. He denies fever or chills. Denies chest pain. Denies nausea, vomiting, diarrhea. Initial diagnostics for admission to [facility] include EKG showing sinus rhythm with a heart rate of 72, there is no ST or T wave abnormalities noted. Lab on admission showing white count 12.1, hemoglobin 17.7, hematocrit is elevated at 60.9. Chemistry panel showing sodium 138, potassium 4.8, CO2 34, BUN 17, creatinine 0.63, glucose of 105. Urinalysis positive for 1+ protein, 4+ glucose, 1+ ketone with occasional mucus. His urine drug toxicology is positive for tricyclic antidepressants, benzodiazepines. Covid is not detected. Chest xray showing new right basilar acute infiltrate and or atelectasis. He was found to be hypoxic on room air in the 90s, reports to not wearing any home oxygen. He required 4-6 L of oxygen to stabilize and was transferred to the medical floor where he was re-evaluated. He was started on IV solu-medrol, and duonebs. Pulmonary services were consulted for evaluation. Patient appears to have worsening hypoxia when sleeping, possibility of an obstructive sleep apnea. He is lethargic today as well, arrousable to voice, stopped the klonopin and decreased seroquel. Final med reqs from psychiatry. D-Dimer negative, procalcitonin 0.08. Influenza A and B also not detected. Current vital signs include heart rate of 90, blood pressure 133/79, 96% on 4L nasal cannula. 07/20/2021 Patient evaluated today on BiPAP. Yesterday afternoon he was quite lethargic, seroquel was decreased down to 25 mg PO HS and klonopin was discontinued for now. Any additional recommendations reguarding his psychiatric medications from psych consultation as patient was on a court order petition for mental health treatment. ABG's were completed yesterday showing pH of 7.25, PCO2 of 92, PO2 of 71, HCO3 of 40, total CO2 43, ox saturation 93.6. He was placed on a 40% fio2 BiPAP. He continues with 1:1 Sitter at the bedside as well. Labs today showing a white count of 15.20, hgb 16.1, hematocrit has improved slightly to 57.4. Sodium 142, potassium 5.4, BUN 19, creat 0.5. Blood glucose is in the 100-90s. We are continuing to hold his home insulin, metformin and actos, and covering with sliding scale as needed. He continues on jardiance. Vital signs today showing temp of 98.1, heart rate 82, blood pressure 128/77, oxygen saturation of 94% on BiPAP. Blood cultures are showing negative. He was started on empiric antibiotic coverage with zosyn today by pulmonary team, he continues also IV steroids which were increased to every 8 hours today, as well as duonebs and pulmicort. Patient was evaluated by pulmonary team today and is being transferred to the ICU this morning for closer monitoring regarding his respiratory status. He is answering questions appropriately, however states he was at his moms house. He is more alert, and moving all extremities with equal strength. He also continues with watery drainage from his eyes. He is complaining of back pain today. 07/21/2021 Patient is evaluated today in the ICU, he was intubated yesterday at 1730, his PCO2 has come down to 40, current fi02 65%. White count today 10.2, sodium 140, potassium 2.8, BUN 35, creat 0.54, blood glucose in the 160s. Critical phosphorous yesterday at 0.7 was replaced and now 2.1, and will receive additional IV phosphorous today. AST 15, albumin 3.3. Patient had hematuria and repeat urinalysis was done showing 1+ protein, 4+glucose, 4+ketones, large blood, 1+bili, >182 RBC. Lovenox was discontinued. Platelet count is stable at 229. He is receiving sedation with propofol. He is also receiving IV ativan and had required haldol for acute agitation. He will be started on a versed infusion for agitation. On IV zosyn, IV solu-medrol, duonebs. He has been started on tube feedings. Continues with 1:1 sitter and followed by psychiatry. He is being followed closely by pulmonary loss claim clerk services. 07/22/2021 Patient evaluated today in the ICU on 50% FiO2, he continues on propofol clevip asad and versed infusion. No BM since the although he has not had much oral intake. Will give a one time dose of lactulose today, and he continues on tube feedings at rate of 20 pending dietary evaluation tomorrow as there is no goal documented. Labs today showing white count 7.4, platelets 226, hgb 16.0, hct 53.6. Sodium 141, potassium 4.1, BUN 36, creat 0.46, blood glucose 131. AST 12, albumin 3.0. BNP 886. Chest xray today showing cardiomegaly, persistent bilateral acute infiltrates and or atelectasis and likely small tiny bilateral pleural effusions. Stable from one day earlier. He has remained afebrile, heart rate 60's, blood pressure 136/57, 95% on room air. Sputum culture and blood culture pending. He is on IV zosyn. Urine output is about 27 mls per hour in the last 24 hours, urine is brown in color, although creat is low normal. He continues on IV fluids at 100 mls per hour. 07/23/2021 Patient evaluated today continues in the ICU, intubated with fi02 of 50%. He continues on Versed infusion and klonopin was resumed today with plans to attempt to wean off the versed. He continues on luvox, and seroquel remains discontinued. Per RN patients sister was at the bedside and states that patient does not have a safe home environment with his mother and social work was cons ulted. Chest xray today showing basilar atelectasis versus pneumonia, difficult to exclude small effusions. Continues on IV Zosyn, IV steroids decreased to BID today. Patient was also started on IV lasix and fluids discontinued today by pulmonary team. He continues on IV propofol and IV cleviprex. Continues on parenteral feedings. Has not had a BM yet received a dose of lactulose yesterday, will receive another dose today no BM since the . Abdomen is soft and nontender and he has normoactive bowel sounds. His eyes are improving and look better today again, redness is resolving and there is less crusting noted today. Labs today showing WBC 8.6, platelet count 205, neutrophils 7.9. Repeat ABG's today showing pCO2 51, HCO3 33, total CO2 35, O2 saturation 97.3. Sodium 142, potassium 4.3, BUN 35, creat 0.51, AST 12 ALT 7, alk phos 65, blood glucose in the 140s. 07/24/2021 Patient remains in the ICU, he is intubated on FiO2 of 50%. He was weaned off the versed gtt and resumed on oral klonopin. Continues on IV zosyn, IV solu- medrol, IV lasix. He is receiving IV cleviprex and IV propofol. Also receiving IV ativan push for breakthrough agitation. He is awake today, his eyes are openi ng, he was trying to sit up. His weight is up today and lasix was increased to every 8 hours, fluids remain at KVO. Repeat chest xray today showing bibasilar effusions and associated atelectasis vs. pneumonia or edema. Correlate for congestive heart failure. Procalcitonin follow up yesterday 0.04. He is bradycardic today heart rate in the 50's, blood pressure 124/68, afebrile, 95% oxygenation. Echocardiogram has been ordered. Continues on enteral nutrition, he is at goal. Blood sugars in the 130-160 range, and is receiving novolog for coverage. If patient continues with breakthrough agitation can resume seroquel at HS. 07/25/2021 Patient is seen in follow-up continues to be in the ICU on sedation and mechanical ventilation with an FiO2 of 50% and PEEP is 5. Sedation holidays and process to assess weaning parameters along with mentation. Pulmonary loss claim clerk along with psychiatry following closely. Patient is also continued on IV Lasix and will continue and monitor intake and output closely. Klonopin has been resumed and will continue for now. Psychiatry also following him recommend continuing with current medication regimen and appreciate input and recommendations. Patient continues with anterior nutrition and will continue. We'll have physical therapy evaluate the patient. Patient also continues on IV Zosyn empirically with the possibility of aspiration pneumonia. Recommend repeat labs and follow-up chest x-ray. 07/26/2021 Patient is seen in follow-up this morning continues to be in the ICU and recently extubated and continued on BiPAP. Patient does have a sitter at the bedside as patient continues to attempt to remove the BiPAP mask. White blood count jumped from 6.5-22.6 and hemoglobin is stable at 16.9, sodium is 142 and, potassium is 3.2 and will replace per protocol, pro-calcitonin 0.20 and urinalysis was sent and will await cultures. Sputum culture finalized with normal respiratory radha and no staph aureus or Pseudomonas noted. Patient will continue on IV Zosyn for now and await cultures. Patient also continues on IV steroids along with breathing inhalational treatments with pulmonary following closely. Patient requiring some Precedex and some oral psychiatric medications have been resumed. Chest x-ray shows suspect some improvement in aeration with lung volume as compared to prior exam. BiPAP is 50% FiO2 with PEEP of 5. Archie haywood will need physical therapy for evaluation and will also consult social work and appreciate input and recommendations from psychiatry. Patient is afebrile. Patient denying chest pain. Patient is in the MICU with multiple medical consultations following and is currently sitting up in the chair and has 02 via NC at 3 liters today and tolerating. Patient has not required bipap. Patient is up and eating and tolerating and taking medications. Psychiatry following along with social work as there is a court hearing early next week for guardian. Patient is weak and needs PT/OT daily. Patient is afebrile, denies worsening shortness of breath, or chest pains. Patient more alert and in better spirits today. Sitter at the bedside. Unable to complete review of systems as patient is mildly confused Active Medications Acetaminophen (Acetaminophen Tab 325 Mg Tab) 650 mg PO Q6HR PRN PRN Reason: Fever and/ or Mild Pain Albuterol/Ipratropium (Ipratropium-Albuterol 3 Ml Neb) 3 ml INHALATION RT-Q2H PRN PRN Reason: Shortness Of Breath Or Wheezing Last Admin: 07/24/21 23:26 Dose: 3 ml Albuterol/Ipratropium (Ipratropium-Albuterol 3 Ml Neb) 3 ml INHALATION RT-QID [facility] Last Admin: 07/27/21 20:36 Dose: 3 ml Atorvastatin Calcium (Atorvastatin 20 Mg Tab) 20 mg PO HS [facility] Last Admin: 07/27/21 20:46 Dose: 20 mg Budesonide (Budesonide 1 Mg/2 Ml Nebu) 1 mg INHALATION RT-BID [facility] Last Admin: 07/27/21 20:36 Dose: 1 mg Clonazepam (Clonazepam 0.5 Mg Tab) 0.5 mg PO TID PRN PRN Reason: Anxiety Last Admin: 07/27/21 16:09 Dose: 0.5 mg Enoxaparin Sodium (Enoxaparin 40 Mg/0.4 Ml Syringe) 40 mg SQ DAILY [facility] Last Admin: 07/27/21 07:51 Dose: 40 mg Fluvoxamine Maleate (Fluvoxamine 50 Mg Tab) 50 mg PO DAILY [facility] Last Admin: 07/27/21 07:52 Dose: 50 mg Fluvoxamine Maleate (Fluvoxamine 50 Mg Tab) 100 mg PO HS [facility] Last Admin: 07/27/21 20:47 Dose: 100 mg Formoterol Fumarate (Formoterol Fumarate 20 Mcg/2 Ml Nebu) 20 mcg INHALATION RT-BID [facility] Last Admin: 07/27/21 20:36 Dose: 20 mcg Furosemide (Furosemide 10 Mg/Ml 4 Ml Vial) 40 mg IV DAILY [facility] Haloperidol Lactate (Haloperidol Lactate 5 Mg/Ml 1 Ml Vial) 4 mg IVP Q4H PRN PRN Reason: Agitation or Acute Psychosis Last Admin: 07/24/21 15:55 Dose: 4 mg Piperacillin Sod/Tazobactam (Sod 3.375 gm/ Sodium Chloride) 100 mls @ 25 mls/hr IVPB Q8HR [facility]; Protocol Last Admin: 07/27/21 16:09 Dose: 25 mls/hr Sodium Chloride (Saline 0.9%) 1,000 mls @ 20 mls/hr IV .Q24H [facility] Last Admin: 07/26/21 17:37 Dose: Not Given Clevidipine 25 mg/ IV Solution 50 mls @ 2 mls/hr IV .Q24H [facility]; Protocol Last Admin: 07/27/21 16:56 Dose: Not Given Dexmedetomidine HCl 400 mcg/ (IV Solution) 100 mls @ 4.815 mls/hr IV .[id number] [facility]; Protocol Last Titration: 07/27/21 09:30 Dose: 0 mcg/kg/hr, 0 mls/hr Insulin Aspart (Insulin Aspart (Novolog) 100 Unit/Ml Vial) 0 unit SQ ACHS [facility]; Protocol Last Admin: 07/27/21 20:46 Dose: 3 unit Lorazepam (Lorazepam 2 Mg/Ml Inj) 1 mg IV Q6HR PRN PRN Reason: Agitation Last Admin: 07/24/21 11:25 Dose: 1 mg Methylprednisolone Sodium Succinate (Methylprednisolone Sod Succi 125 Mg/2 Ml Vial) 60 mg IV Q6H [facility] Last Admin: 07/27/21 20:47 Dose: 60 mg Miscellaneous Information (Phosphorus Replacement Protoco 1 Each Misc) 1 each MISCELLANE DAILY PRN; Protocol PRN Reason: Per Protocol Miscellaneous Information (Potassium Replacement Protocol 1 Each Misc) 1 each MISCELLANE DAILY PRN; Protocol PRN Reason: Per Protocol Nicotine (Nicotine 21mg/24hr Patch) 1 patch TRANSDERM DAILY [facility] Last Admin: 07/27/21 07:53 Dose: 1 patch Pantoprazole Sodium (Pantoprazole 40 Mg/10 Ml Vial) 40 mg IVP DAILY [facility] Last Admin: 07/27/21 07:51 Dose: 40 mg Polymyxin/Trimethoprim Sulfate (Polymyxin B-Trimethoprim Sulf (10,000-1) Ophth Drops 10 Ml Btl) 1 drops BOTH EYES Q4HR [facility] Stop: 07/28/21 16:01 Last Admin: 07/27/21 20:58 Dose: 1 drops Quetiapine Fumarate (Quetiapine 25 Mg Tab) 25 mg PO HS [facility] Last Admin: 07/27/21 20:46 Dose: 25 mg PHYSICAL EXAMINATION: GENERAL: The patient is recently extubated on 07/25 and is now on 3 liter via NC and sitting up in the chair eating. Obese. HEENT: Pupils are 2+ in size. EOMI. Mild crusting noted around the eyes. No conjunctival pallor. Normocephalic, atraumatic. No pharyngeal erythema. No thyr omegaly. Poor dentition. He does wear top dentures which are currently not in place. CARDIOVASCULAR: S1 and S2 present. No murmurs, rubs, or gallops. PULMONARY: Chest is diminished. Some scattered rhonchi and crackles noted ABDOMEN: Soft, nontender, nondistended, normoactive bowel sounds. No palpable organomegaly. MUSCULOSKELETAL: No joint swelling or deformity. EXTREMITIES: No cyanosis, clubbing, or pedal edema. NEUROLOGICAL: cooperative and calm and answering questions SKIN: Generalized rash Assessment: Acute hypoxic and hypercarbic respiratory failure secondary to COPD exacerbation recently extubated on 525 now on 3L via NC in ICU Rule out aspiration pneumonia with atlectasis on xray Fluid overload, on IV lasix which is cut down to daily Conjunctivitis with eye crusting, improving History of asthma, COPD History of hypertension Diabetes Mellitus type 2 with hypoglycemia on admission, improved Proteinuria Hematuria, which is resolving possibly due to IDC insertion, improved History Bipolar / ADD / Depression with suicidal ideations on admission was initially on mental health unit on court ordered evaluation. History of spina bifida History of spinal stenosis Obesity Chronic daily nicotine use GI Prophylaxis DVT Prophylaxis Full Code Plan: Patient is being monitored closely in the ICU he is still in critical condition. Continues on BiPAP and Extubated yesterday on 07/25/2021 with an FiO2 of 50% and PEEP is 5 Continues on IV zosyn IV steroids, Duonebs, pulmicort Continues on IV lasix, now down to daily resumed on home [facility] Psychiatry following. Psych evaluated and does not meet inpatient psych criteria, but is not able to make his own medical decisions and need ECF for continued PT/OT therapy. Court hearing next week for guardian. Recommend to continue with encouraging oral nutrition on soft foods Sitter at the bedside as well Continue all other supportive care Follow up AM labs Continue with psychiatry recommendations Social work consultation. The impression and plan of care has been dictated by Charmaine Minor, Nurse Practitioner as directed. Dr. Karen MD I have performed a history and examination and MDM of this patient, discussed the same with the dictator, and agree with the dictator's assessment and plan as written ,documented as a scribe. Based on total visit time, I have performed more than 50% of the visit. Objective - Vital Signs Vital signs: Vital Signs Temp 99.0 F 07/27/21 00:00 Pulse 56 L 07/27/21 09:08 Resp 28 H 07/27/21 09:08 BP 127/91 07/27/21 07:00 Pulse Ox 91 L 07/27/21 08:34 FiO2 50 07/27/21 08:34 Intake & Output 07/26/21 07/27/21 07/27/21 18:59 06:59 18:59 Intake Total 1414.815 690.224 300 Output Total 3210 1750 575 Balance -1795.185 -1059.776 -275 Weight 96.3 kg Intake: IV 710 320 60 Piperacillin-Tazobactam 3 200 100 .375 gm In Sodium Chloride 0.9% 100 ml @ 25 mls/hr IVPB Q8HR [facility] Rx# :[id number] Potassium Chloride 10 meq 300 In Water For Injection 1 100ml.bag @ 100 mls/hr IVPB Q1H [facility] Rx#: [id number] Sodium Chloride 0.9% 1, 210 220 60 000 ml @ 20 mls/hr IV . Q24H [facility] Rx#:[id number] Intake, IV Titration 4.815 120.224 Amount Dexmedetomidine/0.9% NaCl 4.815 120.224 (Pmx) 400 mcg In Empty Bag 1 bag @ 0.2 MCG/KG/HR 4.815 mls/hr IV .[id number] [facility] Rx#:[id number] Oral 700 250 240 Output: Urine 3210 1750 575 Other: Voiding Method Indwelling Catheter Indwelling Catheter ABP, PAP, CO, CI - Last Documented Arterial Blood Pressure 135/66 - Labs CBC & Chem 7: 07/27/21 05:55 07/27/21 05:55 Labs: Abnormal Lab Results - Last 24 Hours (Table) 07/26/21 07/26/21 07/26/21 Range/Units 05:32 10:30 11:37 WBC (3.8-10.6) k/uL RBC (4.30-5.90) m/uL Hgb (13.0-17.5) gm/dL Hct (39.0-53.0) % MCHC (31.0-37.0) g/dL RDW (11.5-15.5) % Plt Count (150-450) k/uL Neutrophils # (1.3-7.7) k/uL Lymphocytes # (1.0-4.8) k/uL ABG pCO2 61 H (35-45) mmHg ABG pO2 62 L (83-108) mmHg ABG HCO3 37 H (21-25) mmol/L ABG Total CO2 38 H (19-24) mmol/L ABG O2 Saturation 91.0 L (94-97) % Chloride (98-107) mmol/L Carbon Dioxide (22-30) mmol/L BUN (9-20) mg/dL Creatinine (0.66-1.25) mg/dL Glucose (74-99) mg/dL POC Glucose (mg/dL) 137 H (75-99) mg/dL Procalcitonin 0.20 H (0.02-0.09) ng/mL 07/26/21 07/26/21 07/27/21 Range/Units 18:02 21:42 05:55 WBC 13.2 H (3.8-10.6) k/uL RBC 6.72 H (4.30-5.90) m/uL Hgb 17.6 H (13.0-17.5) gm/dL Hct 58.3 H* (39.0-53.0) % MCHC 30.1 L (31.0-37.0) g/dL RDW 16.9 H (11.5-15.5) % Plt Count 131 L (150-450) k/uL Neutrophils # 12.3 H (1.3-7.7) k/uL Lymphocytes # 0.5 L (1.0-4.8) k/uL ABG pCO2 (35-45) mmHg ABG pO2 (83-108) mmHg ABG HCO3 (21-25) mmol/L ABG Total CO2 (19-24) mmol/L ABG O2 Saturation (94-97) % Chloride (98-107) mmol/L Carbon Dioxide (22-30) mmol/L BUN (9-20) mg/dL Creatinine (0.66-1.25) mg/dL Glucose (74-99) mg/dL POC Glucose (mg/dL) 206 H 128 H (75-99) mg/dL Procalcitonin (0.02-0.09) ng/mL 07/27/21 07/27/21 Range/Units 05:55 06:32 WBC (3.8-10.6) k/uL RBC (4.30-5.90) m/uL Hgb (13.0-17.5) gm/dL Hct (39.0-53.0) % MCHC (31.0-37.0) g/dL RDW (11.5-15.5) % Plt Count (150-450) k/uL Neutrophils # (1.3-7.7) k/uL Lymphocytes # (1.0-4.8) k/uL ABG pCO2 (35-45) mmHg ABG pO2 (83-108) mmHg ABG HCO3 (21-25) mmol/L ABG Total CO2 (19-24) mmol/L ABG O2 Saturation (94-97) % Chloride 97 L (98-107) mmol/L Carbon Dioxide 38 H (22-30) mmol/L BUN 41 H (9-20) mg/dL Creatinine 0.57 L (0.66-1.25) mg/dL Glucose 199 H (74-99) mg/dL POC Glucose (mg/dL) 185 H (75-99) mg/dL Procalcitonin (0.02-0.09) ng/mL
[2021-07-28] MEDS: POLYMYXIN B-TRIMETHOPRIM SULF (10,000-1) OPHTH DROPS 10 ML BTL BOTH EYES SCH ×5 (00:26→16:14)
[2021-07-28] MEDS: clonazePAM 0.5 MG TAB PO PRN ×3 (00:37→21:18)
[2021-07-28] MEDS: PIPERACILLIN-TAZOBACTAM 3.375 GM in SODIUM CHLORIDE 0.9% 100 ML IVPB SCH ×3 (02:46→16:35)
[2021-07-28] MEDS: methylPREDNISolone SOD SUCCI 125 MG/2 ML VIAL IV SCH ×3 (02:51→16:10)
[2021-07-28 06:15] LABS: Anisocytosis Slight; HGB 16.9 gm/dL (13.0-17.5); Hypochromasia Marked; MCH 24.4 pg (25.0-35.0); MCHC 28.2 g/dL (31.0-37.0); MCV 86.6 fL (80.0-100.0); Mean Platelet Volume 7.3; Platelet Count 161 k/uL (150-450); Poikilocytosis Slight; RBC 6.91 m/uL (4.30-5.90); RDW 16.4 % (11.5-15.5); WBC 14.2 k/uL (3.8-10.6)
[2021-07-28 06:25] LABS: HCT 59.8 % (39.0-53.0)
[2021-07-28 06:38] LABS: African American GFR (CKD) >90 (>60 ml/min/1.73 sqM); Anion Gap 7 mmol/L; Blood Urea Nitrogen 41 mg/dL (9-20); Calcium 9.1 mg/dL (8.4-10.2); Carbon Dioxide 38 mmol/L (22-30); Chloride 97 mmol/L (98-107); Glucose 210 mg/dL (74-99); Non-African American GFR(CKD) >90 (>60 ml/min/1.73 sqM); Potassium 3.5 mmol/L (3.5-5.1); Sodium 142 mmol/L (137-145)
[2021-07-28 07:06] LABS: Glucose,Whole Blood 193 mg/dL (75-99)
[2021-07-28] MEDS: INSULIN ASPART (NovoLOG) 100 UNIT/ML VIAL SQ SCH ×4 (07:07→21:29)
[2021-07-28] MEDS: IPRATROPIUM-ALBUTEROL 3 ML NEB INHALATION SCH ×4 (07:47→20:05)
[2021-07-28] MEDS: FORMOTEROL FUMARATE 20 MCG/2 ML NEBU INHALATION SCH ×2 (07:47→20:05)
[2021-07-28] MEDS: BUDESONIDE 1 MG/2 ML NEBU INHALATION SCH ×2 (07:47→20:05)
--- NOTE | 2021-07-28 08:40 | XR ---
EXAMINATION TYPE: XR chest 1V portable DATE OF EXAM: 07/28/2021 COMPARISON: 07/27/2021 INDICATION: Short of breath TECHNIQUE: Single frontal view of the chest is obtained. FINDINGS: The heart size is normal. The pulmonary vasculature is slightly prominent. Mild infiltrates at the right base, correlate for atelectasis. Developing pneumonia could be consider ed. Milder infiltrate may be at the left base. Right central venous catheter is present with tip in the right atrium IMPRESSION: 1. Mild bibasilar infiltrates greater at the right base. Correlate for atelectasis or developing pneu monia. Follow-up is recommended.
[2021-07-28] MEDS: POTASSIUM CHLORIDE 20 MEQ in WATER FOR INJECTION 1 100ML.BAG IVPB SCH ×2 (08:47→11:13)
[2021-07-28] MEDS: PANTOPRAZOLE 40 MG/10 ML VIAL IVP SCH (09:04)
[2021-07-28] MEDS: ENOXAPARIN 40 MG/0.4 ML SYRINGE SQ SCH (09:05)
[2021-07-28] MEDS: NICOTINE 21MG/24HR PATCH TRANSDERM SCH (09:11)
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
[2021-07-28] MEDS: FUROSEMIDE 10 MG/ML 4 ML VIAL IV SCH (10:04)
[2021-07-28] MEDS: SODIUM CHLORIDE 0.9% 1,000 ML IV SCH ×2 (10:12→20:46)
[2021-07-28 12:26] LABS: Glucose,Whole Blood 201 mg/dL (75-99)
--- NOTE | 2021-07-28 15:41 | P.PN ---
Subjective Progress Note Date: 07/28/21 This is a 45-year-old male who initially was evaluated on [facility] where he was admitted as a court ordered petition for medication adjustments. Patient has a past medical history significant for bipolar type I, ADD, asthma, COPD, diabetes mellitus, hypertension, gastroesophageal reflux disease, spinal bifida with spinal stenosis, patient is a daily smoker since the age of 11, currently smoking 2 packs per day. He denies any alcohol use, denies illicit drug use. States he lives with his mother, uses a wheel chair for transportation. He reportedly has been unable to care for his basic needs, and presents with poor hygiene. He is currently pending psychiatric evaluation. He was transferred to the medical floor as he was found to have significant shortness of breath making it difficult to carry on a conversation. He reports this has been going on at home for 2 weeks now and was evaluated at his PCP's office. He reports 2-3 days ago the shortness of breath worsened and he has clear nasal drainage and congestion. He denies fever or chills. Denies chest pain. Denies nausea, vomiting, diarrhea. Initial diagnostics for admission to [facility] include EKG showing sinus rhythm with a heart rate of 72, there is no ST or T wave abnormalities noted. Lab on admission showing white count 12.1, hemoglobin 17.7, hematocrit is elevated at 60.9. Chemistry panel showing sodium 138, potassium 4.8, CO2 34, BUN 17, creatinine 0.63, glucose of 105. Urinalysis positive for 1+ protein, 4+ glucose, 1+ ketone with occasional mucus. His urine drug toxicology is positive for tricyclic antidepressants, benzodiazepines. Covid is not detected. Chest xray showing new right basilar acute infiltrate and or atelectasis. He was found to be hypoxic on room air in the 90s, reports to not wearing any home oxygen. He required 4-6 L of oxygen to stabilize and was transferred to the medical floor where he was re-evaluated. He was started on IV solu-medrol, and duonebs. Pulmonary services were consulted for evaluation. Patient appears to have worsening hypoxia when sleeping, possibility of an obstructive sleep apnea. He is lethargic today as well, arrousable to voice, stopped the klonopin and decreased seroquel. Final med reqs from psychiatry. D-Dimer negative, procalcitonin 0.08. Influenza A and B also not detected. Current vital signs include heart rate of 90, blood pressure 133/79, 96% on 4L nasal cannula. 07/20/2021 Patient evaluated today on BiPAP. Yesterday afternoon he was quite lethargic, seroquel was decreased down to 25 mg PO HS and klonopin was discontinued for now. Any additional recommendations reguarding his psychiatric medications from psych consultation as patient was on a court order petition for mental health treatment. ABG's were completed yesterday showing pH of 7.25, PCO2 of 92, PO2 of 71, HCO3 of 40, total CO2 43, ox saturation 93.6. He was placed on a 40% fio2 BiPAP. He continues with 1:1 Sitter at the bedside as well. Labs today showing a white count of 15.20, hgb 16.1, hematocrit has improved slightly to 57.4. Sodium 142, potassium 5.4, BUN 19, creat 0.5. Blood glucose is in the 100-90s. We are continuing to hold his home insulin, metformin and actos, and covering with sliding scale as needed. He continues on jardiance. Vital signs today showing temp of 98.1, heart rate 82, blood pressure 128/77, oxygen saturation of 94% on BiPAP. Blood cultures are showing negative. He was started on empiric antibiotic coverage with zosyn today by pulmonary team, he continues also IV steroids which were increased to every 8 hours today, as well as duonebs and pulmicort. Patient was evaluated by pulmonary team today and is being transferred to the ICU this morning for closer monitoring regarding his respiratory status. He is answering questions appropriately, however states he was at his moms house. He is more alert, and moving all extremities with equal strength. He also continues with watery drainage from his eyes. He is complaining of back pain today. 07/21/2021 Patient is evaluated today in the ICU, he was intubated yesterday at 1730, his PCO2 has come down to 40, current fi02 65%. White count today 10.2, sodium 140, potassium 2.8, BUN 35, creat 0.54, blood glucose in the 160s. Critical phosphorous yesterday at 0.7 was replaced and now 2.1, and will receive additional IV phosphorous today. AST 15, albumin 3.3. Patient had hematuria and repeat urinalysis was done showing 1+ protein, 4+glucose, 4+ketones, large blood, 1+bili, >182 RBC. Lovenox was discontinued. Platelet count is stable at 229. He is receiving sedation with propofol. He is also receiving IV ativan and had required haldol for acute agitation. He will be started on a versed infusion for agitation. On IV zosyn, IV solu-medrol, duonebs. He has been started on tube feedings. Continues with 1:1 sitter and followed by psychiatry. He is being followed closely by pulmonary tumblers supervisor services. 07/22/2021 Patient evaluated today in the ICU on 50% FiO2, he continues on propofol clevip asad and versed infusion. No BM since the although he has not had much oral intake. Will give a one time dose of lactulose today, and he continues on tube feedings at rate of 20 pending dietary evaluation tomorrow as there is no goal documented. Labs today showing white count 7.4, platelets 226, hgb 16.0, hct 53.6. Sodium 141, potassium 4.1, BUN 36, creat 0.46, blood glucose 131. AST 12, albumin 3.0. BNP 886. Chest xray today showing cardiomegaly, persistent bilateral acute infiltrates and or atelectasis and likely small tiny bilateral pleural effusions. Stable from one day earlier. He has remained afebrile, heart rate 60's, blood pressure 136/57, 95% on room air. Sputum culture and blood culture pending. He is on IV zosyn. Urine output is about 27 mls per hour in the last 24 hours, urine is brown in color, although creat is low normal. He continues on IV fluids at 100 mls per hour. 07/23/2021 Patient evaluated today continues in the ICU, intubated with fi02 of 50%. He continues on Versed infusion and klonopin was resumed today with plans to attempt to wean off the versed. He continues on luvox, and seroquel remains discontinued. Per RN patients sister was at the bedside and states that patient does not have a safe home environment with his mother and social work was cons ulted. Chest xray today showing basilar atelectasis versus pneumonia, difficult to exclude small effusions. Continues on IV Zosyn, IV steroids decreased to BID today. Patient was also started on IV lasix and fluids discontinued today by pulmonary team. He continues on IV propofol and IV cleviprex. Continues on parenteral feedings. Has not had a BM yet received a dose of lactulose yesterday, will receive another dose today no BM since the . Abdomen is soft and nontender and he has normoactive bowel sounds. His eyes are improving and look better today again, redness is resolving and there is less crusting noted today. Labs today showing WBC 8.6, platelet count 205, neutrophils 7.9. Repeat ABG's today showing pCO2 51, HCO3 33, total CO2 35, O2 saturation 97.3. Sodium 142, potassium 4.3, BUN 35, creat 0.51, AST 12 ALT 7, alk phos 65, blood glucose in the 140s. 07/24/2021 Patient remains in the ICU, he is intubated on FiO2 of 50%. He was weaned off the versed gtt and resumed on oral klonopin. Continues on IV zosyn, IV solu- medrol, IV lasix. He is receiving IV cleviprex and IV propofol. Also receiving IV ativan push for breakthrough agitation. He is awake today, his eyes are openi ng, he was trying to sit up. His weight is up today and lasix was increased to every 8 hours, fluids remain at KVO. Repeat chest xray today showing bibasilar effusions and associated atelectasis vs. pneumonia or edema. Correlate for congestive heart failure. Procalcitonin follow up yesterday 0.04. He is bradycardic today heart rate in the 50's, blood pressure 124/68, afebrile, 95% oxygenation. Echocardiogram has been ordered. Continues on enteral nutrition, he is at goal. Blood sugars in the 130-160 range, and is receiving novolog for coverage. If patient continues with breakthrough agitation can resume seroquel at HS. 07/25/2021 Patient is seen in follow-up continues to be in the ICU on sedation and mechanical ventilation with an FiO2 of 50% and PEEP is 5. Sedation holidays and process to assess weaning parameters along with mentation. Pulmonary tumblers supervisor along with psychiatry following closely. Patient is also continued on IV Lasix and will continue and monitor intake and output closely. Klonopin has been resumed and will continue for now. Psychiatry also following him recommend continuing with current medication regimen and appreciate input and recommendations. Patient continues with anterior nutrition and will continue. We'll have physical therapy evaluate the patient. Patient also continues on IV Zosyn empirically with the possibility of aspiration pneumonia. Recommend repeat labs and follow-up chest x-ray. 07/26/2021 Patient is seen in follow-up this morning continues to be in the ICU and recently extubated and continued on BiPAP. Patient does have a sitter at the bedside as patient continues to attempt to remove the BiPAP mask. White blood count jumped from 6.5-22.6 and hemoglobin is stable at 16.9, sodium is 142 and, potassium is 3.2 and will replace per protocol, pro-calcitonin 0.20 and urinalysis was sent and will await cultures. Sputum culture finalized with normal respiratory radha and no staph aureus or Pseudomonas noted. Patient will continue on IV Zosyn for now and await cultures. Patient also continues on IV steroids along with breathing inhalational treatments with pulmonary following closely. Patient requiring some Precedex and some oral psychiatric medications have been resumed. Chest x-ray shows suspect some improvement in aeration with lung volume as compared to prior exam. BiPAP is 50% FiO2 with PEEP of 5. Archie haywood will need physical therapy for evaluation and will also consult social work and appreciate input and recommendations from psychiatry. Patient is afebrile. Patient denying chest pain. 07/27/2021 Patient is in the MICU with multiple medical consultations following and is currently sitting up in the chair and has 02 via NC at 15 liters HF today and tolerating. Patient has not required bipap. Patient is up and eating and tolerating and taking medications. Psychiatry following along with social work as there is a court hearing early next week for guardian. Patient is weak and needs PT/OT daily. Patient is afebrile, denies worsening shortness of breath, or chest pains. Patient more alert and in better spirits today. Sitter at the bedside. 07/28/2021 Patient is in the ICU and pulmonary following closely. Weaning FI02 as tolerated. Currently 10LHF and titrating down to 8L HF at 95%. Chest xray ordered and patient tolerating NC. Sitter at the bedside. Patient also to continue IV zosyn and IV steroids being transitioned to oral prednisone. Recommend follow up chest xray and continued breathing inhalational treatments. Tolerating oral diet. No chest pain or palpitations noted. Afebrile. Unable to complete review of systems as patient is mildly confused Active Medications Acetaminophen (Acetaminophen Tab 325 Mg Tab) 650 mg PO Q6HR PRN PRN Reason: Fever and/ or Mild Pain Albuterol/Ipratropium (Ipratropium-Albuterol 3 Ml Neb) 3 ml INHALATION RT-Q2H PRN PRN Reason: Shortness Of Breath Or Wheezing Last Admin: 07/24/21 23:26 Dose: 3 ml Albuterol/Ipratropium (Ipratropium-Albuterol 3 Ml Neb) 3 ml INHALATION RT-QID [facility] Last Admin: 07/28/21 11:20 Dose: Not Given Atorvastatin Calcium (Atorvastatin 20 Mg Tab) 20 mg PO [facility] Last Admin: 07/27/21 20:46 Dose: 20 mg Budesonide (Budesonide 1 Mg/2 Ml Nebu) 1 mg INHALATION RT-BID [facility] Last Admin: 07/28/21 07:47 Dose: 1 mg Clonazepam (Clonazepam 0.5 Mg Tab) 0.5 mg PO TID PRN PRN Reason: Anxiety Last Admin: 07/28/21 00:37 Dose: 0.5 mg Enoxaparin Sodium (Enoxaparin 40 Mg/0.4 Ml Syringe) 40 mg SQ DAILY [facility] Last Admin: 07/28/21 09:05 Dose: 40 mg Fluvoxamine Maleate (Fluvoxamine 50 Mg Tab) 50 mg PO DAILY [facility] Last Admin: 07/28/21 10:05 Dose: 50 mg Fluvoxamine Maleate (Fluvoxamine 50 Mg Tab) 100 mg PO [facility] Last Admin: 07/27/21 20:47 Dose: 100 mg Formoterol Fumarate (Formoterol Fumarate 20 Mcg/2 Ml Nebu) 20 mcg INHALATION RT-BID [facility] Last Admin: 07/28/21 07:47 Dose: 20 mcg Furosemide (Furosemide 10 Mg/Ml 4 Ml Vial) 40 mg IV DAILY [facility] Last Admin: 07/28/21 10:04 Dose: 40 mg Haloperidol Lactate (Haloperidol Lactate 5 Mg/Ml 1 Ml Vial) 4 mg IVP Q4H PRN PRN Reason: Agitation or Acute Psychosis Last Admin: 07/24/21 15:55 Dose: 4 mg Piperacillin Sod/Tazobactam (Sod 3.375 gm/ Sodium Chloride) 100 mls @ 25 mls/hr IVPB Q8HR [facility]; Protocol Last Admin: 07/28/21 08:50 Dose: 25 mls/hr Sodium Chloride (Saline 0.9%) 1,000 mls @ 20 mls/hr IV .Q24H [facility] Last Admin: 07/28/21 10:12 Dose: 20 mls/hr Clevidipine 25 mg/ IV Solution 50 mls @ 2 mls/hr IV .Q24H [facility]; Protocol Last Admin: 07/27/21 16:56 Dose: Not Given Dexmedetomidine HCl 400 mcg/ (IV Solution) 100 mls @ 4.815 mls/hr IV .[id number] [facility]; Protocol Last Titration: 07/27/21 09:30 Dose: 0 mcg/kg/hr, 0 mls/hr Insulin Aspart (Insulin Aspart (Novolog) 100 Unit/Ml Vial) 0 unit SQ ACHS [facility]; Protocol Last Admin: 07/28/21 12:58 Dose: 6 unit Lorazepam (Lorazepam 2 Mg/Ml Inj) 1 mg IV Q6HR PRN PRN Reason: Agitation Last Admin: 07/24/21 11:25 Dose: 1 mg Methylprednisolone Sodium Succinate (Methylprednisolone Sod Succi 125 Mg/2 Ml Vial) 60 mg IV Q6H [facility] Last Admin: 07/28/21 08:50 Dose: 60 mg Miscellaneous Information (Phosphorus Replacement Protoco 1 Each Misc) 1 each MISCELLANE DAILY PRN; Protocol PRN Reason: Per Protocol Miscellaneous Information (Potassium Replacement Protocol 1 Each Misc) 1 each MISCELLANE DAILY PRN; Protocol PRN Reason: Per Protocol Nicotine (Nicotine 21mg/24hr Patch) 1 patch TRANSDERM DAILY [facility] Last Admin: 07/28/21 09:11 Dose: 1 patch Pantoprazole Sodium (Pantoprazole 40 Mg/10 Ml Vial) 40 mg IVP DAILY [facility] Last Admin: 07/28/21 09:04 Dose: 40 mg Polymyxin/Trimethoprim Sulfate (Polymyxin B-Trimethoprim Sulf (10,000-1) Ophth D rops 10 Ml Btl) 1 drops BOTH EYES Q4HR [facility] Stop: 07/28/21 16:01 Last Admin: 07/28/21 12:54 Dose: 1 drops Quetiapine Fumarate (Quetiapine 25 Mg Tab) 25 mg PO HS [facility] Last Admin: 07/27/21 20:46 Dose: 25 mg PHYSICAL EXAMINATION: GENERAL: The patient is recently extubated on 07/25 and is now on 8 liter HF via NC and sitting up in the chair eating. Obese. HEENT: Pupils are 2+ in size. EOMI. No conjunctival pallor. Normocephalic, atraumatic. No pharyngeal erythema. No thyromegaly. Poor dentition. He does wear top dentures which are currently not in place. CARDIOVASCULAR: S1 and S2 present. No murmurs, rubs, or gallops. PULMONARY: Chest is diminished. Some scattered rhonchi and crackles noted ABDOMEN: Soft, nontender, nondistended, normoactive bowel sounds. No palpable organomegaly. MUSCULOSKELETAL: No joint swelling or deformity. EXTREMITIES: No cyanosis, clubbing, or pedal edema. NEUROLOGICAL: cooperative and calm and answering questions SKIN: Generalized rash Assessment: Acute hypoxic and hypercarbic respiratory failure secondary to COPD exacerbation recently extubated on 525 now on 8L HF via NC in ICU Rule out aspiration pneumonia with WBC elevated Fluid overload, on IV lasix which is cut down to daily Conjunctivitis with eye crusting, improving History of asthma, COPD History of hypertension Diabetes Mellitus type 2 with hypoglycemia on admission, improved Proteinuria Hematuria, which is resolving possibly due to IDC insertion, improved History Bipolar / ADD / Depression with suicidal ideations on admission was initially on mental health unit on court ordered evaluation. History of spina bifida History of spinal stenosis Obesity Chronic daily nicotine use GI Prophylaxis DVT Prophylaxis Full Code Plan: Patient is being monitored closely in the ICU he is still in critical condition. Continues on 8L HF via NC and Extubated on 07/25/2021 Continues on IV zosyn, wbc is elevated although may be a component of steroid induced on IV steroids. Patient is afebrile. IV steroids, Duonebs, pulmicort, pulmonary transitioning to oral prednisone. Continues on IV lasix, now down to daily resumed on home Klonopin Psychiatry following. Psych evaluated and does not meet inpatient psych criteria, but is not able to make his own medical decisions and need ECF for continued PT/OT therapy. Court hearing next week for guardian. Recommend to continue with encouraging oral nutrition on soft foods Sitter at the bedside as well Continue all other supportive care Follow up AM labs Continue with psychiatry recommendations Social work consultation. The impression and plan of care has been dictated by Charmaine Minor, Nurse Practitioner as directed. Dr. Karen MD I have performed a history and examination and MDM of this patient, discussed the same with the dictator, and agree with the dictator's assessment and plan as written ,documented as a scribe. Based on total visit time, I have performed more than 50% of the visit. Objective - Vital Signs Vital signs: Vital Signs Temp 97.3 F L 07/28/21 08:00 Pulse 74 07/28/21 10:00 Resp 14 07/28/21 10:00 BP 98/69 07/28/21 10:00 Pulse Ox 90 L 07/28/21 10:00 FiO2 50 07/27/21 08:34 Intake & Output 07/27/21 07/28/21 07/28/21 18:59 06:59 18:59 Intake Total 762.397 380 740 Output Total 1030 795 370 Balance -267.603 -415 370 Weight 90.2 kg Intake: IV 340 380 140 Piperacillin-Tazobactam 3 100 200 100 .375 gm In Sodium Chloride 0.9% 100 ml @ 25 mls/hr IVPB Q8HR [facility] Rx# :[id number] Sodium Chloride 0.9% 1, 240 180 40 000 ml @ 20 mls/hr IV . Q24H [facility] Rx#:[id number] Intake, IV Titration 62.397 100 Amount Dexmedetomidine/0.9% NaCl 62.397 (Pmx) 400 mcg In Empty Bag 1 bag @ 0.2 MCG/KG/HR 4.815 mls/hr IV .[id number] [facility] Rx#:[id number] Potassium Chloride 20 meq 100 In Water For Injection 1 100ml.bag @ 50 mls/hr IVPB Q2H [facility] Rx#: [id number] Oral 360 500 Output: Urine 1030 795 370 Other: Voiding Method Indwelling Catheter Indwelling Catheter ABP, PAP, CO, CI - Last Documented Arterial Blood Pressure 135/66 - Labs CBC & Chem 7: 07/28/21 05:49 07/28/21 05:49 Labs: Abnormal Lab Results - Last 24 Hours (Table) 07/27/21 07/27/21 07/27/21 Range/Units 11:07 16:52 17:40 WBC (3.8-10.6) k/uL RBC (4.30-5.90) m/uL Hct (39.0-53.0) % MCH (25.0-35.0) pg MCHC (31.0-37.0) g/dL RDW (11.5-15.5) % Chloride (98-107) mmol/L Carbon Dioxide (22-30) mmol/L BUN (9-20) mg/dL Creatinine (0.66-1.25) mg/dL Glucose (74-99) mg/dL POC Glucose (mg/dL) 222 H 152 H 162 H (75-99) mg/dL 07/27/21 07/28/21 07/28/21 Range/Units 20:35 05:49 05:49 WBC 14.2 H (3.8-10.6) k/uL RBC 6.91 H (4.30-5.90) m/uL Hct 59.8 H* (39.0-53.0) % MCH 24.4 L (25.0-35.0) pg MCHC 28.2 L (31.0-37.0) g/dL RDW 16.4 H (11.5-15.5) % Chloride 97 L (98-107) mmol/L Carbon Dioxide 38 H (22-30) mmol/L BUN 41 H (9-20) mg/dL Creatinine 0.47 L (0.66-1.25) mg/dL Glucose 210 H (74-99) mg/dL POC Glucose (mg/dL) 161 H (75-99) mg/dL 07/28/21 Range/Units 07:04 WBC (3.8-10.6) k/uL RBC (4.30-5.90) m/uL Hct (39.0-53.0) % MCH (25.0-35.0) pg MCHC (31.0-37.0) g/dL RDW (11.5-15.5) % Chloride (98-107) mmol/L Carbon Dioxide (22-30) mmol/L BUN (9-20) mg/dL Creatinine (0.66-1.25) mg/dL Glucose (74-99) mg/dL POC Glucose (mg/dL) 193 H (75-99) mg/dL
[2021-07-28 18:01] LABS: Glucose,Whole Blood 251 mg/dL (75-99)
[2021-07-28] MEDS: CLEVIDIPINE BUTYRATE 25 MG in EMPTY BAG 1 BAG IV SCH (18:06)
[2021-07-28] MEDS: DEXMEDETOMIDINE/0.9% NACL(PMX) 400 MCG in EMPTY BAG 1 BAG IV SCH (20:44)
[2021-07-28] MEDS: QUEtiapine 25 MG TAB PO SCH (21:18)
[2021-07-28] MEDS: ATORVASTATIN 20 MG TAB PO SCH (21:18)
[2021-07-28 21:28] LABS: Glucose,Whole Blood 159 mg/dL (75-99)
[2021-07-29] MEDS: PIPERACILLIN-TAZOBACTAM 3.375 GM in SODIUM CHLORIDE 0.9% 100 ML IVPB SCH ×4 (00:48→23:26)
[2021-07-29] MEDS: LORazepam 2 MG/ML INJ IV PRN (00:49)
[2021-07-29 06:03] LABS: African American GFR (CKD) >90 (>60 ml/min/1.73 sqM); Anion Gap 3 mmol/L; Blood Urea Nitrogen 39 mg/dL (9-20); Carbon Dioxide 39 mmol/L (22-30); Chloride 96 mmol/L (98-107); Glucose 202 mg/dL (74-99); Non-African American GFR(CKD) >90 (>60 ml/min/1.73 sqM); Sodium 138 mmol/L (137-145)
[2021-07-29 06:04] LABS: Anisocytosis Slight; Basophils % (A) 0 %; Eosinophils % (A) 0 %; HCT 54.4 % (39.0-53.0); HGB 16.3 gm/dL (13.0-17.5); Hypochromasia Marked; Lymphocytes # (A) 1.5 k/uL (1.0-4.8); Lymphocytes % (A) 10 %; MCH 25.6 pg (25.0-35.0); MCHC 29.9 g/dL (31.0-37.0); MCV 85.7 fL (80.0-100.0); Monocytes # (A) 1.2 k/uL (0-1.0); Monocytes % (A) 8 %; Neutrophils # (A) 12.1 k/uL (1.3-7.7); Neutrophils % (A) 81 %; Platelet Count 170 k/uL (150-450); Poikilocytosis Slight; RBC 6.35 m/uL (4.30-5.90); RDW 16.6 % (11.5-15.5)
[2021-07-29 07:02] LABS: Glucose,Whole Blood 162 mg/dL (75-99)
[2021-07-29] MEDS: INSULIN ASPART (NovoLOG) 100 UNIT/ML VIAL SQ SCH ×4 (07:07→21:12)
[2021-07-29] MEDS: BUDESONIDE 1 MG/2 ML NEBU INHALATION SCH ×2 (07:55→20:20)
[2021-07-29] MEDS: FORMOTEROL FUMARATE 20 MCG/2 ML NEBU INHALATION SCH ×2 (07:55→20:20)
[2021-07-29] MEDS: IPRATROPIUM-ALBUTEROL 3 ML NEB INHALATION SCH ×4 (07:56→20:20)
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
--- NOTE | 2021-07-29 08:11 | XR ---
EXAMINATION TYPE: XR chest 1V portable DATE OF EXAM: 07/29/2021 COMPARISON: 07/20/2021 INDICATION: Assess lungs, previous abnormal chest TECHNIQUE: Single frontal view of the chest is obtained. FINDINGS: The heart size is normal. The pulmonary vasculature is normal. There is a small infiltrate through the right base. Correlate for atelectasis. Patient is rotated to the left. Right central venous catheter is present with tip in the proximal right atrium. IMPRESSION: 1. Mild infiltrate at the right base may be atelectasis. Clinical correlation and follow-up is recomm ended.
[2021-07-29] MEDS: POTASSIUM CHLORIDE ER 20 MEQ TAB.ER PO SCH ×5 (09:06→16:51)
[2021-07-29] MEDS: predniSONE 20 MG TAB PO SCH (09:06)
[2021-07-29] MEDS: PANTOPRAZOLE 40 MG/10 ML VIAL IVP SCH (09:06)
[2021-07-29] MEDS: NICOTINE 21MG/24HR PATCH TRANSDERM SCH (09:06)
[2021-07-29] MEDS: ENOXAPARIN 40 MG/0.4 ML SYRINGE SQ SCH (09:06)
[2021-07-29] MEDS: FUROSEMIDE 10 MG/ML 4 ML VIAL IV SCH (09:07)
[2021-07-29] MEDS: FUROSEMIDE 40 MG TAB PO SCH (10:29)
[2021-07-29 12:01] LABS: Glucose,Whole Blood 158 mg/dL (75-99)
[2021-07-29] MEDS ORDERED: Potassium Replacement Protocol 1 EACH MISC MISCELLANE PRN (12:43)
--- NOTE | 2021-07-29 14:06 | P.PN ---
Subjective Progress Note Date: 07/29/21 This is a 45-year-old male who initially was evaluated on [facility] where he was admitted as a court ordered petition for medication adjustments. Patient has a past medical history significant for bipolar type I, ADD, asthma, COPD, diabetes mellitus, hypertension, gastroesophageal reflux disease, spinal bifida with spinal stenosis, patient is a daily smoker since the age of 11, currently smoking 2 packs per day. He denies any alcohol use, denies illicit drug use. States he lives with his mother, uses a wheel chair for transportation. He reportedly has been unable to care for his basic needs, and presents with poor hygiene. He is currently pending psychiatric evaluation. He was transferred to the medical floor as he was found to have significant shortness of breath making it difficult to carry on a conversation. He reports this has been going on at home for 2 weeks now and was evaluated at his PCP's office. He reports 2-3 days ago the shortness of breath worsened and he has clear nasal drainage and congestion. He denies fever or chills. Denies chest pain. Denies nausea, vomiting, diarrhea. Initial diagnostics for admission to [facility] include EKG showing sinus rhythm with a heart rate of 72, there is no ST or T wave abnormalities noted. Lab on admission showing white count 12.1, hemoglobin 17.7, hematocrit is elevated at 60.9. Chemistry panel showing sodium 138, potassium 4.8, CO2 34, BUN 17, creatinine 0.63, glucose of 105. Urinalysis positive for 1+ protein, 4+ glucose, 1+ ketone with occasional mucus. His urine drug toxicology is positive for tricyclic antidepressants, benzodiazepines. Covid is not detected. Chest xray showing new right basilar acute infiltrate and or atelectasis. He was found to be hypoxic on room air in the 90s, reports to not wearing any home oxygen. He required 4-6 L of oxygen to stabilize and was transferred to the medical floor where he was re-evaluated. He was started on IV solu-medrol, and duonebs. Pulmonary services were consulted for evaluation. Patient appears to have worsening hypoxia when sleeping, possibility of an obstructive sleep apnea. He is lethargic today as well, arrousable to voice, stopped the klonopin and decreased seroquel. Final med reqs from psychiatry. D-Dimer negative, procalcitonin 0.08. Influenza A and B also not detected. Current vital signs include heart rate of 90, blood pressure 133/79, 96% on 4L nasal cannula. 07/20/2021 Patient evaluated today on BiPAP. Yesterday afternoon he was quite lethargic, seroquel was decreased down to 25 mg PO HS and klonopin was discontinued for now. Any additional recommendations reguarding his psychiatric medications from psych consultation as patient was on a court order petition for mental health treatment. ABG's were completed yesterday showing pH of 7.25, PCO2 of 92, PO2 of 71, HCO3 of 40, total CO2 43, ox saturation 93.6. He was placed on a 40% fio2 BiPAP. He continues with 1:1 Sitter at the bedside as well. Labs today showing a white count of 15.20, hgb 16.1, hematocrit has improved slightly to 57.4. Sodium 142, potassium 5.4, BUN 19, creat 0.5. Blood glucose is in the 100-90s. We are continuing to hold his home insulin, metformin and actos, and covering with sliding scale as needed. He continues on jardiance. Vital signs today showing temp of 98.1, heart rate 82, blood pressure 128/77, oxygen saturation of 94% on BiPAP. Blood cultures are showing negative. He was started on empiric antibiotic coverage with zosyn today by pulmonary team, he continues also IV steroids which were increased to every 8 hours today, as well as duonebs and pulmicort. Patient was evaluated by pulmonary team today and is being transferred to the ICU this morning for closer monitoring regarding his respiratory status. He is answering questions appropriately, however states he was at his moms house. He is more alert, and moving all extremities with equal strength. He also continues with watery drainage from his eyes. He is complaining of back pain today. 07/21/2021 Patient is evaluated today in the ICU, he was intubated yesterday at 1730, his PCO2 has come down to 40, current fi02 65%. White count today 10.2, sodium 140, potassium 2.8, BUN 35, creat 0.54, blood glucose in the 160s. Critical phosphorous yesterday at 0.7 was replaced and now 2.1, and will receive additional IV phosphorous today. AST 15, albumin 3.3. Patient had hematuria and repeat urinalysis was done showing 1+ protein, 4+glucose, 4+ketones, large blood, 1+bili, >182 RBC. Lovenox was discontinued. Platelet count is stable at 229. He is receiving sedation with propofol. He is also receiving IV ativan and had required haldol for acute agitation. He will be started on a versed infusion for agitation. On IV zosyn, IV solu-medrol, duonebs. He has been started on tube feedings. Continues with 1:1 sitter and followed by psychiatry. He is being followed closely by pulmonary senior property manager services. 07/22/2021 Patient evaluated today in the ICU on 50% FiO2, he continues on propofol clevip asad and versed infusion. No BM since the although he has not had much oral intake. Will give a one time dose of lactulose today, and he continues on tube feedings at rate of 20 pending dietary evaluation tomorrow as there is no goal documented. Labs today showing white count 7.4, platelets 226, hgb 16.0, hct 53.6. Sodium 141, potassium 4.1, BUN 36, creat 0.46, blood glucose 131. AST 12, albumin 3.0. BNP 886. Chest xray today showing cardiomegaly, persistent bilateral acute infiltrates and or atelectasis and likely small tiny bilateral pleural effusions. Stable from one day earlier. He has remained afebrile, heart rate 60's, blood pressure 136/57, 95% on room air. Sputum culture and blood culture pending. He is on IV zosyn. Urine output is about 27 mls per hour in the last 24 hours, urine is brown in color, although creat is low normal. He continues on IV fluids at 100 mls per hour. 07/23/2021 Patient evaluated today continues in the ICU, intubated with fi02 of 50%. He continues on Versed infusion and klonopin was resumed today with plans to attempt to wean off the versed. He continues on luvox, and seroquel remains discontinued. Per RN patients sister was at the bedside and states that patient does not have a safe home environment with his mother and social work was cons ulted. Chest xray today showing basilar atelectasis versus pneumonia, difficult to exclude small effusions. Continues on IV Zosyn, IV steroids decreased to BID today. Patient was also started on IV lasix and fluids discontinued today by pulmonary team. He continues on IV propofol and IV cleviprex. Continues on parenteral feedings. Has not had a BM yet received a dose of lactulose yesterday, will receive another dose today no BM since the . Abdomen is soft and nontender and he has normoactive bowel sounds. His eyes are improving and look better today again, redness is resolving and there is less crusting noted today. Labs today showing WBC 8.6, platelet count 205, neutrophils 7.9. Repeat ABG's today showing pCO2 51, HCO3 33, total CO2 35, O2 saturation 97.3. Sodium 142, potassium 4.3, BUN 35, creat 0.51, AST 12 ALT 7, alk phos 65, blood glucose in the 140s. 07/24/2021 Patient remains in the ICU, he is intubated on FiO2 of 50%. He was weaned off the versed gtt and resumed on oral klonopin. Continues on IV zosyn, IV solu- medrol, IV lasix. He is receiving IV cleviprex and IV propofol. Also receiving IV ativan push for breakthrough agitation. He is awake today, his eyes are openi ng, he was trying to sit up. His weight is up today and lasix was increased to every 8 hours, fluids remain at KVO. Repeat chest xray today showing bibasilar effusions and associated atelectasis vs. pneumonia or edema. Correlate for congestive heart failure. Procalcitonin follow up yesterday 0.04. He is bradycardic today heart rate in the 50's, blood pressure 124/68, afebrile, 95% oxygenation. Echocardiogram has been ordered. Continues on enteral nutrition, he is at goal. Blood sugars in the 130-160 range, and is receiving novolog for coverage. If patient continues with breakthrough agitation can resume seroquel at HS. 07/25/2021 Patient is seen in follow-up continues to be in the ICU on sedation and mechanical ventilation with an FiO2 of 50% and PEEP is 5. Sedation holidays and process to assess weaning parameters along with mentation. Pulmonary senior property manager along with psychiatry following closely. Patient is also continued on IV Lasix and will continue and monitor intake and output closely. Klonopin has been resumed and will continue for now. Psychiatry also following him recommend continuing with current medication regimen and appreciate input and recommendations. Patient continues with anterior nutrition and will continue. We'll have physical therapy evaluate the patient. Patient also continues on IV Zosyn empirically with the possibility of aspiration pneumonia. Recommend repeat labs and follow-up chest x-ray. 07/26/2021 Patient is seen in follow-up this morning continues to be in the ICU and recently extubated and continued on BiPAP. Patient does have a sitter at the bedside as patient continues to attempt to remove the BiPAP mask. White blood count jumped from 6.5-22.6 and hemoglobin is stable at 16.9, sodium is 142 and, potassium is 3.2 and will replace per protocol, pro-calcitonin 0.20 and urinalysis was sent and will await cultures. Sputum culture finalized with normal respiratory radha and no staph aureus or Pseudomonas noted. Patient will continue on IV Zosyn for now and await cultures. Patient also continues on IV steroids along with breathing inhalational treatments with pulmonary following closely. Patient requiring some Precedex and some oral psychiatric medications have been resumed. Chest x-ray shows suspect some improvement in aeration with lung volume as compared to prior exam. BiPAP is 50% FiO2 with PEEP of 5. Archie haywood will need physical therapy for evaluation and will also consult social work and appreciate input and recommendations from psychiatry. Patient is afebrile. Patient denying chest pain. 07/27/2021 Patient is in the MICU with multiple medical consultations following and is currently sitting up in the chair and has 02 via NC at 15 liters HF today and tolerating. Patient has not required bipap. Patient is up and eating and tolerating and taking medications. Psychiatry following along with social work as there is a court hearing early next week for guardian. Patient is weak and needs PT/OT daily. Patient is afebrile, denies worsening shortness of breath, or chest pains. Patient more alert and in better spirits today. Sitter at the bedside. 07/28/2021 Patient is in the ICU and pulmonary following closely. Weaning FI02 as tolerated. Currently 10LHF and titrating down to 8L HF at 95%. Chest xray ordered and patient tolerating NC. Sitter at the bedside. Patient also to continue IV zosyn and IV steroids being transitioned to oral prednisone. Recommend follow up chest xray and continued breathing inhalational treatments. Tolerating oral diet. No chest pain or palpitations noted. Afebrile. 07/29/2021 Patient continues in the ICU and currently down to 6L HF via NC with pulmonary following. Patient transitioned to oral prednisone and will continue IV zosyn for now. Patient is tolerating diet and is cooperative. Sitter at the bedside and psychiatry following as well. Social work following for possible ecf and there is a court hearing scheduled for this week. Potassium is 3.0 today and will replace per protocol. Maintained on oral lasix. Unable to complete review of systems as patient is mildly confused Active Medications Acetaminophen (Acetaminophen Tab 325 Mg Tab) 650 mg PO Q6HR PRN PRN Reason: Fever and/ or Mild Pain Albuterol/Ipratropium (Ipratropium-Albuterol 3 Ml Neb) 3 ml INHALATION RT-Q2H PRN PRN Reason: Shortness Of Breath Or Wheezing Last Admin: 07/24/21 23:26 Dose: 3 ml Albuterol/Ipratropium (Ipratropium-Albuterol 3 Ml Neb) 3 ml INHALATION RT-QID [facility] Last Admin: 07/29/21 11:33 Dose: Not Given Atorvastatin Calcium (Atorvastatin 20 Mg Tab) 20 mg PO [facility] Last Admin: 07/28/21 21:18 Dose: 20 mg Budesonide (Budesonide 1 Mg/2 Ml Nebu) 1 mg INHALATION RT-BID [facility] Last Admin: 07/29/21 07:55 Dose: 1 mg Clonazepam (Clonazepam 0.5 Mg Tab) 0.5 mg PO TID PRN PRN Reason: Anxiety Last Admin: 07/28/21 21:18 Dose: 0.5 mg Enoxaparin Sodium (Enoxaparin 40 Mg/0.4 Ml Syringe) 40 mg SQ DAILY [facility] Last Admin: 07/29/21 09:06 Dose: 40 mg Fluvoxamine Maleate (Fluvoxamine 50 Mg Tab) 50 mg PO DAILY [facility] Last Admin: 07/29/21 09:07 Dose: 50 mg Fluvoxamine Maleate (Fluvoxamine 50 Mg Tab) 100 mg PO [facility] Last Admin: 07/28/21 21:18 Dose: 100 mg Formoterol Fumarate (Formoterol Fumarate 20 Mcg/2 Ml Nebu) 20 mcg INHALATION RT-BID [facility] Last Admin: 07/29/21 07:55 Dose: 20 mcg Furosemide (Furosemide 40 Mg Tab) 40 mg PO DAILY [facility] Last Admin: 07/29/21 10:29 Dose: 40 mg Haloperidol Lactate (Haloperidol Lactate 5 Mg/Ml 1 Ml Vial) 4 mg IVP Q4H PRN PRN Reason: Agitation or Acute Psychosis Last Admin: 07/24/21 15:55 Dose: 4 mg Piperacillin Sod/Tazobactam (Sod 3.375 gm/ Sodium Chloride) 100 mls @ 25 mls/hr IVPB Q8HR [facility]; Protocol Last Admin: 07/29/21 09:04 Dose: 25 mls/hr Sodium Chloride (Saline 0.9%) 1,000 mls @ 20 mls/hr IV .Q24H [facility] Last Admin: 07/28/21 20:46 Dose: Not Given Clevidipine 25 mg/ IV Solution 50 mls @ 2 mls/hr IV .Q24H [facility]; Protocol Last Admin: 07/28/21 18:06 Dose: Not Given Dexmedetomidine HCl 400 mcg/ (IV Solution) 100 mls @ 4.815 mls/hr IV .[id number] [facility]; Protocol Last Admin: 07/28/21 20:44 Dose: Not Given Insulin Aspart (Insulin Aspart (Novolog) 100 Unit/Ml Vial) 0 unit SQ ACHS [facility]; Protocol Last Admin: 07/29/21 12:16 Dose: 3 unit Lorazepam (Lorazepam 2 Mg/Ml Inj) 1 mg IV Q6HR PRN PRN Reason: Agitation Last Admin: 07/29/21 00:49 Dose: 1 mg Miscellaneous Information (Phosphorus Replacement Protoco 1 Each Misc) 1 each MISCELLANE DAILY PRN; Protocol PRN Reason: Per Protocol Miscellaneous Information (Potassium Replacement Protocol 1 Each Misc) 1 each MISCELLANE DAILY PRN; Protocol PRN Reason: Per Protocol Miscellaneous Information (Potassium Replacement Protocol 1 Each Misc) 1 each MISCELLANE DAILY PRN; Protocol PRN Reason: Per Protocol Nicotine (Nicotine 21mg/24hr Patch) 1 patch TRANSDERM DAILY [facility] Last Admin: 07/29/21 09:06 Dose: 1 patch Pantoprazole Sodium (Pantoprazole 40 Mg/10 Ml Vial) 40 mg IVP DAILY [facility] Last Admin: 07/29/21 09:06 Dose: 40 mg Potassium Chloride (Potassium Chloride Er 20 Meq Tab.Er) 20 meq PO Q1HR [facility]; Protocol Stop: 07/29/21 15:01 Prednisone (Prednisone 20 Mg Tab) 40 mg PO DAILY [facility] Stop: 08/01/21 09:01 Last Admin: 07/29/21 09:06 Dose: 40 mg Prednisone (Prednisone 10 Mg Tab) 30 mg PO DAILY [facility] Stop: 08/04/21 09:01 Prednisone (Prednisone 20 Mg Tab) 20 mg PO DAILY [facility] Stop: 08/09/21 09:01 Prednisone (Prednisone 10 Mg Tab) 10 mg PO DAILY [facility] Stop: 08/13/21 09:01 Prednisone (Prednisone 5 Mg Tab) 5 mg PO DAILY [facility] Stop: 08/17/21 09:01 Quetiapine Fumarate (Quetiapine 25 Mg Tab) 25 mg PO HS [facility] Last Admin: 07/28/21 21:18 Dose: 25 mg PHYSICAL EXAMINATION: GENERAL: The patient is recently extubated on 07/25 and is now on 6 liter HF via NC and sitting up in the chair eating. Obese. HEENT: Pupils are 2+ in size. EOMI. No conjunctival pallor. Normocephalic, atraumatic. No pharyngeal erythema. No thyromegaly. Poor dentition. He does wear top dentures which are currently not in place. CARDIOVASCULAR: S1 and S2 present. No murmurs, rubs, or gallops. PULMONARY: Chest is diminished. Some scattered rhonchi and crackles noted ABDOMEN: Soft, nontender, nondistended, normoactive bowel sounds. No palpable organomegaly. MUSCULOSKELETAL: No joint swelling or deformity. EXTREMITIES: No cyanosis, clubbing, or pedal edema. NEUROLOGICAL: cooperative and calm and answering questions SKIN: Generalized rash Assessment: Acute hypoxic and hypercarbic respiratory failure secondary to COPD exacerbation recently extubated on now on 6L HF via NC in ICU Rule out aspiration pneumonia with WBC elevated Fluid overload, improved hypokalemia Conjunctivitis with eye crusting, improving History of asthma, COPD History of hypertension Diabetes Mellitus type 2 with hypoglycemia on admission, improved Proteinuria Hematuria, which is resolving possibly due to IDC insertion, improved History Bipolar / ADD / Depression with suicidal ideations on admission was in itially on mental health unit on court ordered evaluation. History of spina bifida History of spinal stenosis Obesity Chronic daily nicotine use GI Prophylaxis DVT Prophylaxis Full Code Plan: Patient is being monitored closely in the ICU and slowly improving. Continues on 6L HF via NC and Extubated on 07/25/2021 Continues on IV zosyn, wbc is elevated although may be a component of steroid i nduced on IV steroids. Patient is afebrile. oral steroids, Duonebs, pulmicort, pulmonary transitioning to oral prednisone. Lasix transitioned to oral Potassium is 3.0 today and will replace per protocol resumed on home Klonopin Psychiatry following. Psych evaluated and does not meet inpatient psych criteria, but is not able to make his own medical decisions and need ECF for continued PT/OT therapy. Court hearing next week for guardian. Recommend to continue with encouraging oral nutrition on soft foods Sitter at the bedside as well Continue all other supportive care Follow up AM labs Continue with psychiatry recommendations Social work consultation. The impression and plan of care has been dictated by Charmaine Minor, Nurse Practitioner as directed. Dr. Karen MD I have performed a history and examination and MDM of this patient, discussed the same with the dictator, and agree with the dictator's assessment and plan as written ,documented as a scribe. Based on total visit time, I have performed more than 50% of the visit. Objective - Vital Signs Vital signs: Vital Signs Temp 98.1 F 07/29/21 04:00 Pulse 72 07/29/21 09:00 Resp 14 07/29/21 09:00 BP 139/81 07/29/21 09:00 Pulse Ox 95 07/29/21 08:00 FiO2 50 07/27/21 08:34 Intake & Output 07/28/21 07/29/21 07/29/21 18:59 06:59 18:59 Intake Total 940 600 110 Output Total 1580 410 Balance -640 190 110 Intake: IV 340 250 110 Piperacillin-Tazobactam 3 200 100 100 .375 gm In Sodium Chloride 0.9% 100 ml @ 25 mls/hr IVPB Q8HR [facility] Rx# :[id number] Sodium Chloride 0.9% 1, 140 150 10 000 ml @ 20 mls/hr IV . Q24H [facility] Rx#:[id number] Intake, IV Titration 100 Amount Potassium Chloride 20 meq 100 In Water For Injection 1 100ml.bag @ 50 mls/hr IVPB Q2H [facility] Rx#: [id number] Oral 500 350 Output: Urine 1580 410 Other: Voiding Method Indwelling Catheter Urinal # Voids 0 # Bowel Movements 1 ABP, PAP, CO, CI - Last Documented Arterial Blood Pressure 135/66 - Labs CBC & Chem 7: 07/29/21 05:19 07/29/21 12:47 Labs: Abnormal Lab Results - Last 24 Hours (Table) 07/28/21 07/28/21 07/28/21 Range/Units 12:24 18:00 21:25 WBC (3.8-10.6) k/uL RBC (4.30-5.90) m/uL Hct (39.0-53.0) % MCHC (31.0-37.0) g/dL RDW (11.5-15.5) % Neutrophils # (1.3-7.7) k/uL Monocytes # (0-1.0) k/uL Potassium (3.5-5.1) mmol/L Chloride (98-107) mmol/L Carbon Dioxide (22-30) mmol/L BUN (9-20) mg/dL Creatinine (0.66-1.25) mg/dL Glucose (74-99) mg/dL POC Glucose (mg/dL) 201 H 251 H 159 H (75-99) mg/dL 07/29/21 07/29/21 07/29/21 Range/Units 05:19 05:19 07:01 WBC 15.0 H (3.8-10.6) k/uL RBC 6.35 H (4.30-5.90) m/uL Hct 54.4 H (39.0-53.0) % MCHC 29.9 L (31.0-37.0) g/dL RDW 16.6 H (11.5-15.5) % Neutrophils # 12.1 H (1.3-7.7) k/uL Monocytes # 1.2 H (0-1.0) k/uL Potassium 3.0 L (3.5-5.1) mmol/L Chloride 96 L (98-107) mmol/L Carbon Dioxide 39 H (22-30) mmol/L BUN 39 H (9-20) mg/dL Creatinine 0.42 L (0.66-1.25) mg/dL Glucose 202 H (74-99) mg/dL POC Glucose (mg/dL) 162 H (75-99) mg/dL
[2021-07-29] MEDS: clonazePAM 0.5 MG TAB PO PRN ×2 (14:23→21:12)
[2021-07-29 16:06] LABS: Glucose,Whole Blood 243 mg/dL (75-99)
[2021-07-29 16:28] LABS: Glucose,Whole Blood 287 mg/dL (75-99)
[2021-07-29] MEDS: DEXMEDETOMIDINE/0.9% NACL(PMX) 400 MCG in EMPTY BAG 1 BAG IV SCH (16:46)
[2021-07-29 21:09] LABS: Glucose,Whole Blood 157 mg/dL (75-99)
[2021-07-29] MEDS: ATORVASTATIN 20 MG TAB PO SCH (21:12)
[2021-07-29] MEDS: QUEtiapine 25 MG TAB PO SCH (21:12)
--- NOTE | 2021-07-29 22:03 | P.PN ---
Progress Note - Text Progress Note Date: 07/29/21 Interval History: Patient was seen today for psychiatric follow-up. Patient was in the ICU and s itting in the reclining chair with his oxygen nasal cannula on. He is awake, appears alert, and is oriented to person, place, time (July 2021). Thoughts are slow and concrete, speech is a bit slurred. He states that he is doing "okay" and is denying any complaints. He states that he slept good last night. He is denying depression or anxiety today. At this time patient denies any suicidal or homical ideations, intent or plan. Patient denies any auditory, visual hallucinations and denies any paranoia or delusions. Patient denies any side effects from the medications and has been compliant with meds. Mental Status Exam: General Appearance: Patient appears to be overweight, poor dentition, stated age, disheveled. Behavior: Patient is calmly seated without any agitated behavior. Attempts to cooperate. Speech: Patient's speech is somewhat slurred, slowed, and nonpressured. Mood/Affect: Mood is improving mildly, affect is congruent. Suicidality/Homicidality: Patient denies having any suicidal or homicidal ideation intent or plan. Perceptions: Patient denies any visual hallucinations and denies any auditory hallucinations. Though content/process: [place], not endorsing any delusions or paranoia. Poverty of content. Memory and concentration: AOX3, grossly intact for the purposes of this session Judgment and insight: Chronically limited, Improving mildly Assessment Delirium, toxic-metabolic and medications as likely the cause Depressive disorder unspecified, rule out schizoaffective depressive type versus bipolar depression Nicotine dependence Plan: -At this time patient DOES NOT meet criteria for inpatient psychiatric admission. -Patient DOES NOT have decision making capacity at this time and is unable to reason through and communicate/appreciate the risks, benefits and alternatives to treatment. -Delirium precautions recommended with patient including - avoiding use of narcotics and LOSS PREVENTION ANALYST sedatives, limit anticholinergic medications when possible, frequent re-orientation, minimize use of restraints, open window shades during the day and close them at night. -Would recommend the following medication changes/additions: Continue with Seroquel 25 mg daily at bedtime for sleep/mood stabilization. Continue with current medications as prescribed. Continue with monitoring for benzodiazepine withdrawal. Continue with Klonopin when necessary. -Patient has court hearing date set for August 01 for MH treatment. -Communicated plan to patient's nurse -Will continue to follow along as needed -Please contact with any questions.
[2021-07-30 07:09] LABS: Glucose,Whole Blood 145 mg/dL (75-99)
[2021-07-30] MEDS: INSULIN ASPART (NovoLOG) 100 UNIT/ML VIAL SQ SCH ×4 (07:11→20:42)
[2021-07-30 07:41] LABS: Anisocytosis Slight; HCT 53.8 % (39.0-53.0); HGB 15.8 gm/dL (13.0-17.5); Hypochromasia Marked; MCH 25.3 pg (25.0-35.0); MCHC 29.4 g/dL (31.0-37.0); MCV 86.1 fL (80.0-100.0); Mean Platelet Volume 8.1; Platelet Count 162 k/uL (150-450); Poikilocytosis Slight; RBC 6.25 m/uL (4.30-5.90); RDW 16.7 % (11.5-15.5)
[2021-07-30 07:54] LABS: African American GFR (CKD) >90 (>60 ml/min/1.73 sqM); Anion Gap 1 mmol/L; Blood Urea Nitrogen 32 mg/dL (9-20); Calcium 8.9 mg/dL (8.4-10.2); Carbon Dioxide 40 mmol/L (22-30); Chloride 98 mmol/L (98-107); Glucose 168 mg/dL (74-99); Non-African American GFR(CKD) >90 (>60 ml/min/1.73 sqM); Potassium 3.6 mmol/L (3.5-5.1); Sodium 139 mmol/L (137-145)
[2021-07-30] MEDS: PIPERACILLIN-TAZOBACTAM 3.375 GM in SODIUM CHLORIDE 0.9% 100 ML IVPB SCH ×3 (07:56→23:11)
[2021-07-30] MEDS: BUDESONIDE 1 MG/2 ML NEBU INHALATION SCH ×2 (08:11→19:36)
[2021-07-30] MEDS: IPRATROPIUM-ALBUTEROL 3 ML NEB INHALATION SCH ×4 (08:11→19:36)
[2021-07-30] MEDS: FORMOTEROL FUMARATE 20 MCG/2 ML NEBU INHALATION SCH ×2 (08:11→19:36)
--- NOTE | 2021-07-30 08:17 | XR ---
EXAMINATION TYPE: XR chest 1V portable DATE OF EXAM: 07/30/2021 COMPARISON: 07/29/2021 INDICATION: Infiltrate TECHNIQUE: Single frontal view of the chest is obtained. FINDINGS: The heart size is normal. The pulmonary vasculature is normal. There is developing infiltrate at the peripheral right base. Additional subsegmental infiltrates are present bilaterally. Correlate for atelectasis and pneumonia. IMPRESSION: 1. Worsening peripheral right lung base infiltrate. Correlate for atelectasis and pneumonia. Some bib asilar atelectasis is likely present. Continued follow-up is recommended.
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
[2021-07-30] MEDS: clonazePAM 0.5 MG TAB PO PRN ×3 (10:33→20:42)
[2021-07-30] MEDS: PANTOPRAZOLE 40 MG/10 ML VIAL IVP SCH (10:44)
[2021-07-30] MEDS: NICOTINE 21MG/24HR PATCH TRANSDERM SCH (10:44)
[2021-07-30] MEDS: ENOXAPARIN 40 MG/0.4 ML SYRINGE SQ SCH (10:47)
[2021-07-30] MEDS: FUROSEMIDE 40 MG TAB PO SCH (10:48)
[2021-07-30] MEDS: predniSONE 20 MG TAB PO SCH (10:48)
[2021-07-30 11:48] LABS: Glucose,Whole Blood 225 mg/dL (75-99)
--- NOTE | 2021-07-30 13:59 | P.PN ---
Subjective Progress Note Date: 07/30/21 This is a 45-year-old male who initially was evaluated on [facility] where he was admitted as a court ordered petition for medication adjustments. Patient has a past medical history significant for bipolar type I, ADD, asthma, COPD, diabetes mellitus, hypertension, gastroesophageal reflux disease, spinal bifida with spinal stenosis, patient is a daily smoker since the age of 11, currently smoking 2 packs per day. He denies any alcohol use, denies illicit drug use. States he lives with his mother, uses a wheel chair for transportation. He reportedly has been unable to care for his basic needs, and presents with poor hygiene. He is currently pending psychiatric evaluation. He was transferred to the medical floor as he was found to have significant shortness of breath making it difficult to carry on a conversation. He reports this has been going on at home for 2 weeks now and was evaluated at his PCP's office. He reports 2-3 days ago the shortness of breath worsened and he has clear nasal drainage and congestion. He denies fever or chills. Denies chest pain. Denies nausea, vomiting, diarrhea. Initial diagnostics for admission to [facility] include EKG showing sinus rhythm with a heart rate of 72, there is no ST or T wave abnormalities noted. Lab on admission showing white count 12.1, hemoglobin 17.7, hematocrit is elevated at 60.9. Chemistry panel showing sodium 138, potassium 4.8, CO2 34, BUN 17, creatinine 0.63, glucose of 105. Urinalysis positive for 1+ protein, 4+ glucose, 1+ ketone with occasional mucus. His urine drug toxicology is positive for tricyclic antidepressants, benzodiazepines. Covid is not detected. Chest xray showing new right basilar acute infiltrate and or atelectasis. He was found to be hypoxic on room air in the 90s, reports to not wearing any home oxygen. He required 4-6 L of oxygen to stabilize and was transferred to the medical floor where he was re-evaluated. He was started on IV solu-medrol, and duonebs. Pulmonary services were consulted for evaluation. Patient appears to have worsening hypoxia when sleeping, possibility of an obstructive sleep apnea. He is lethargic today as well, arrousable to voice, stopped the klonopin and decreased seroquel. Final med reqs from psychiatry. D-Dimer negative, procalcitonin 0.08. Influenza A and B also not detected. Current vital signs include heart rate of 90, blood pressure 133/79, 96% on 4L nasal cannula. 07/20/2021 Patient evaluated today on BiPAP. Yesterday afternoon he was quite lethargic, seroquel was decreased down to 25 mg PO HS and klonopin was discontinued for now. Any additional recommendations reguarding his psychiatric medications from psych consultation as patient was on a court order petition for mental health treatment. ABG's were completed yesterday showing pH of 7.25, PCO2 of 92, PO2 of 71, HCO3 of 40, total CO2 43, ox saturation 93.6. He was placed on a 40% fio2 BiPAP. He continues with 1:1 Sitter at the bedside as well. Labs today showing a white count of 15.20, hgb 16.1, hematocrit has improved slightly to 57.4. Sodium 142, potassium 5.4, BUN 19, creat 0.5. Blood glucose is in the 100-90s. We are continuing to hold his home insulin, metformin and actos, and covering with sliding scale as needed. He continues on jardiance. Vital signs today showing temp of 98.1, heart rate 82, blood pressure 128/77, oxygen saturation of 94% on BiPAP. Blood cultures are showing negative. He was started on empiric antibiotic coverage with zosyn today by pulmonary team, he continues also IV steroids which were increased to every 8 hours today, as well as duonebs and pulmicort. Patient was evaluated by pulmonary team today and is being transferred to the ICU this morning for closer monitoring regarding his respiratory status. He is answering questions appropriately, however states he was at his moms house. He is more alert, and moving all extremities with equal strength. He also continues with watery drainage from his eyes. He is complaining of back pain today. 07/21/2021 Patient is evaluated today in the ICU, he was intubated yesterday at 1730, his PCO2 has come down to 40, current fi02 65%. White count today 10.2, sodium 140, potassium 2.8, BUN 35, creat 0.54, blood glucose in the 160s. Critical phosphorous yesterday at 0.7 was replaced and now 2.1, and will receive additional IV phosphorous today. AST 15, albumin 3.3. Patient had hematuria and repeat urinalysis was done showing 1+ protein, 4+glucose, 4+ketones, large blood, 1+bili, >182 RBC. Lovenox was discontinued. Platelet count is stable at 229. He is receiving sedation with propofol. He is also receiving IV ativan and had required haldol for acute agitation. He will be started on a versed infusion for agitation. On IV zosyn, IV solu-medrol, duonebs. He has been started on tube feedings. Continues with 1:1 sitter and followed by psychiatry. He is being followed closely by pulmonary prep room supervisor services. 07/22/2021 Patient evaluated today in the ICU on 50% FiO2, he continues on propofol clevip asad and versed infusion. No BM since the although he has not had much oral intake. Will give a one time dose of lactulose today, and he continues on tube feedings at rate of 20 pending dietary evaluation tomorrow as there is no goal documented. Labs today showing white count 7.4, platelets 226, hgb 16.0, hct 53.6. Sodium 141, potassium 4.1, BUN 36, creat 0.46, blood glucose 131. AST 12, albumin 3.0. BNP 886. Chest xray today showing cardiomegaly, persistent bilateral acute infiltrates and or atelectasis and likely small tiny bilateral pleural effusions. Stable from one day earlier. He has remained afebrile, heart rate 60's, blood pressure 136/57, 95% on room air. Sputum culture and blood culture pending. He is on IV zosyn. Urine output is about 27 mls per hour in the last 24 hours, urine is brown in color, although creat is low normal. He continues on IV fluids at 100 mls per hour. 07/23/2021 Patient evaluated today continues in the ICU, intubated with fi02 of 50%. He continues on Versed infusion and klonopin was resumed today with plans to attempt to wean off the versed. He continues on luvox, and seroquel remains discontinued. Per RN patients sister was at the bedside and states that patient does not have a safe home environment with his mother and social work was cons ulted. Chest xray today showing basilar atelectasis versus pneumonia, difficult to exclude small effusions. Continues on IV Zosyn, IV steroids decreased to BID today. Patient was also started on IV lasix and fluids discontinued today by pulmonary team. He continues on IV propofol and IV cleviprex. Continues on parenteral feedings. Has not had a BM yet received a dose of lactulose yesterday, will receive another dose today no BM since the . Abdomen is soft and nontender and he has normoactive bowel sounds. His eyes are improving and look better today again, redness is resolving and there is less crusting noted today. Labs today showing WBC 8.6, platelet count 205, neutrophils 7.9. Repeat ABG's today showing pCO2 51, HCO3 33, total CO2 35, O2 saturation 97.3. Sodium 142, potassium 4.3, BUN 35, creat 0.51, AST 12 ALT 7, alk phos 65, blood glucose in the 140s. 07/24/2021 Patient remains in the ICU, he is intubated on FiO2 of 50%. He was weaned off the versed gtt and resumed on oral klonopin. Continues on IV zosyn, IV solu- medrol, IV lasix. He is receiving IV cleviprex and IV propofol. Also receiving IV ativan push for breakthrough agitation. He is awake today, his eyes are openi ng, he was trying to sit up. His weight is up today and lasix was increased to every 8 hours, fluids remain at KVO. Repeat chest xray today showing bibasilar effusions and associated atelectasis vs. pneumonia or edema. Correlate for congestive heart failure. Procalcitonin follow up yesterday 0.04. He is bradycardic today heart rate in the 50's, blood pressure 124/68, afebrile, 95% oxygenation. Echocardiogram has been ordered. Continues on enteral nutrition, he is at goal. Blood sugars in the 130-160 range, and is receiving novolog for coverage. If patient continues with breakthrough agitation can resume seroquel at HS. 07/25/2021 Patient is seen in follow-up continues to be in the ICU on sedation and mechanical ventilation with an FiO2 of 50% and PEEP is 5. Sedation holidays and process to assess weaning parameters along with mentation. Pulmonary prep room supervisor along with psychiatry following closely. Patient is also continued on IV Lasix and will continue and monitor intake and output closely. Klonopin has been resumed and will continue for now. Psychiatry also following him recommend continuing with current medication regimen and appreciate input and recommendations. Patient continues with anterior nutrition and will continue. We'll have physical therapy evaluate the patient. Patient also continues on IV Zosyn empirically with the possibility of aspiration pneumonia. Recommend repeat labs and follow-up chest x-ray. 07/26/2021 Patient is seen in follow-up this morning continues to be in the ICU and recently extubated and continued on BiPAP. Patient does have a sitter at the bedside as patient continues to attempt to remove the BiPAP mask. White blood count jumped from 6.5-22.6 and hemoglobin is stable at 16.9, sodium is 142 and, potassium is 3.2 and will replace per protocol, pro-calcitonin 0.20 and urinalysis was sent and will await cultures. Sputum culture finalized with normal respiratory radha and no staph aureus or Pseudomonas noted. Patient will continue on IV Zosyn for now and await cultures. Patient also continues on IV steroids along with breathing inhalational treatments with pulmonary following closely. Patient requiring some Precedex and some oral psychiatric medications have been resumed. Chest x-ray shows suspect some improvement in aeration with lung volume as compared to prior exam. BiPAP is 50% FiO2 with PEEP of 5. Archie haywood will need physical therapy for evaluation and will also consult social work and appreciate input and recommendations from psychiatry. Patient is afebrile. Patient denying chest pain. 07/27/2021 Patient is in the MICU with multiple medical consultations following and is currently sitting up in the chair and has 02 via NC at 15 liters HF today and tolerating. Patient has not required bipap. Patient is up and eating and tolerating and taking medications. Psychiatry following along with social work as there is a court hearing early next week for guardian. Patient is weak and needs PT/OT daily. Patient is afebrile, denies worsening shortness of breath, or chest pains. Patient more alert and in better spirits today. Sitter at the bedside. 07/28/2021 Patient is in the ICU and pulmonary following closely. Weaning FI02 as tolerated. Currently 10LHF and titrating down to 8L HF at 95%. Chest xray ordered and patient tolerating NC. Sitter at the bedside. Patient also to continue IV zosyn and IV steroids being transitioned to oral prednisone. Recommend follow up chest xray and continued breathing inhalational treatments. Tolerating oral diet. No chest pain or palpitations noted. Afebrile. 07/29/2021 Patient continues in the ICU and currently down to 6L HF via NC with pulmonary following. Patient transitioned to oral prednisone and will continue IV zosyn for now. Patient is tolerating diet and is cooperative. Sitter at the bedside and psychiatry following as well. Social work following for possible ecf and there is a court hearing scheduled for this week. Potassium is 3.0 today and will replace per protocol. Maintained on oral lasix. 07/30/2021 Patient continues to be in the ICU with multiple medical consultations following. Patient is now maintained on 5 L high flow and on exam found the patient with his oxygen off and really encouraged the patient to continue using oxygen and discuss with nursing staff about weaning as tolerated. Patient is 98% on 5 L with pulmonary following. Labs within normal limits today and patient is afebrile. Patient continues on IV Zosyn and cultures have been negative. Patient also continues on oral prednisone and recommend continued breathing treatments. Patient requesting if he could go home although will need to discuss with psychiatry as patient came in initially with suicidal ideations. Possible ECF as patient is continued with weakness. Patient is afebrile and denies any chest pain or worsening shortness of breath. Patient is tolerating diet. Review of systems: Constitutional: No reports of fatigue, fever, or chills Cardiovascular: No reports of chest pain or palpitations Respiratory: No reports of shortness of breath or cough GI: No reports of nausea, vomiting, or diarrhea : No reports of dysuria or retention Neurovascular: No reports of weakness or numbness All medications have been reviewed Active Medications Generic Name Dose Route Start Last Admin Trade Name Freq PRN Reason Stop Dose Admin Acetaminophen 650 mg 07/20/21 09:51 Acetaminophen Tab 325 Mg Tab PO Q6HR PRN Fever and/ or Mild Pain Albuterol/Ipratropium 3 ml 07/18/21 16:02 07/24/21 23:26 Ipratropium-Albuterol 3 Ml Neb INHALATION 3 ml RT-Q2H PRN Administration Shortness Of Breath Or Wheezing Albuterol/Ipratropium 3 ml 05/18/22 20:00 07/30/21 11:19 Ipratropium-Albuterol 3 Ml Neb INHALATION 3 ml RT-QID VINCE Administration Atorvastatin Calcium 20 mg 07/18/21 21:00 07/29/21 21:12 Atorvastatin 20 Mg Tab PO 20 mg HS VINCE Administration Budesonide 1 mg 07/20/21 20:00 07/30/21 08:11 Budesonide 1 Mg/2 Ml Nebu INHALATION 1 mg RT-BID VINCE Administration Clonazepam 0.5 mg 07/27/21 10:31 07/30/21 10:33 Clonazepam 0.5 Mg Tab PO 0.5 mg TID PRN Administration Anxiety Enoxaparin Sodium 40 mg 07/21/21 09:00 07/30/21 10:47 Enoxaparin 40 Mg/0.4 Ml Syringe SQ 40 mg DAILY VINCE Administration Fluvoxamine Maleate 50 mg 07/19/21 09:00 07/30/21 10:48 Fluvoxamine 50 Mg Tab PO 50 mg DAILY VINCE Administration Fluvoxamine Maleate 100 mg 07/18/21 21:00 07/29/21 21:12 Fluvoxamine 50 Mg Tab PO 100 mg HS VINCE Administration Formoterol Fumarate 20 mcg 07/20/21 20:00 07/30/21 08:11 Formoterol Fumarate 20 Mcg/2 Ml Nebu INHALATION 20 mcg RT-BID VINCE Administration Furosemide 40 mg 07/29/21 09:45 07/30/21 10:48 Furosemide 40 Mg Tab PO 40 mg DAILY VINCE Administration Haloperidol Lactate 4 mg 07/20/21 15:53 07/24/21 15:55 Haloperidol Lactate 5 Mg/Ml 1 Ml Vial IVP 4 mg Q4H PRN Administration Agitation or Acute Psychosis Piperacillin Sod/Tazobactam 100 mls @ 25 mls/hr 07/20/21 09:00 07/30/21 07:56 Sod 3.375 gm/ Sodium Chloride IVPB 25 mls/hr Q8HR VINCE Administration Protocol Sodium Chloride 1,000 mls @ 20 mls/hr 07/20/21 09:45 07/28/21 20:46 Saline 0.9% IV Not Given .Q24H VINCE Insulin Aspart 0 unit 07/26/21 21:00 07/30/21 11:57 Insulin Aspart (Novolog) 100 Unit/Ml Vial SQ 7 unit ACHS VINCE Administration Protocol Lorazepam 1 mg 07/20/21 16:46 07/29/21 00:49 Lorazepam 2 Mg/Ml Inj IV 1 mg Q6HR PRN Administration Agitation Miscellaneous Information 1 each 07/20/21 20:19 Phosphorus Replacement Protoco 1 Each [facility] MISCELLANE DAILY PRN Per Protocol Protocol Miscellaneous Information 1 each 07/21/21 06:49 Potassium Replacement Protocol 1 Each [facility] MISCELLANE DAILY PRN Per Protocol Protocol Miscellaneous Information 1 each 07/29/21 12:43 Potassium Replacement Protocol 1 Each [facility] MISCELLANE DAILY PRN Per Protocol Protocol Nicotine 1 patch 07/18/21 17:15 07/30/21 10:44 Nicotine 21mg/24hr Patch TRANSDERM 1 patch DAILY VINCE Administration Pantoprazole Sodium 40 mg 07/21/21 09:00 07/30/21 10:44 Pantoprazole 40 Mg/10 Ml Vial IVP 40 mg DAILY VINCE Administration Prednisone 40 mg 07/29/21 09:00 07/30/21 10:48 Prednisone 20 Mg Tab PO 08/01/21 09:01 40 mg DAILY VINCE Administration Prednisone 30 mg 08/01/21 09:00 Prednisone 10 Mg Tab PO 08/04/21 09:01 DAILY VINCE Prednisone 20 mg 08/06/21 09:00 Prednisone 20 Mg Tab PO 08/09/21 09:01 DAILY VINCE Prednisone 10 mg 08/10/21 09:00 Prednisone 10 Mg Tab PO 08/13/21 09:01 DAILY VINCE Prednisone 5 mg 08/14/21 09:00 Prednisone 5 Mg Tab PO 08/17/21 09:01 DAILY VINCE Quetiapine Fumarate 25 mg 07/27/21 21:00 07/29/21 21:12 Quetiapine 25 Mg Tab PO 25 mg HS VINCE Administration PHYSICAL EXAMINATION: GENERAL: The patient is recently extubated on 07/25 and is now on 5 liter via NC and sitting up in the chair eating. Obese. HEENT: Pupils are 2+ in size. EOMI. No conjunctival pallor. Normocephalic, atraumatic. No pharyngeal erythema. No thyromegaly. Poor dentition. He does wear top dentures which are currently not in place. CARDIOVASCULAR: S1 and S2 present. No murmurs, rubs, or gallops. PULMONARY: Chest is diminished. Some scattered rhonchi and crackles noted ABDOMEN: Soft, nontender, nondistended, normoactive bowel sounds. No palpable organomegaly. MUSCULOSKELETAL: No joint swelling or deformity. EXTREMITIES: No cyanosis, clubbing, or pedal edema. NEUROLOGICAL: cooperative and calm and answering questions SKIN: Generalized rash Assessment: Acute hypoxic and hypercarbic respiratory failure secondary to COPD exacerbation recently extubated on 525 now on 5L HF via NC in ICU Rule out aspiration pneumonia with WBC elevated Fluid overload, improved hypokalemia Conjunctivitis with eye crusting, improving History of asthma, COPD History of hypertension Diabetes Mellitus type 2 with hypoglycemia on admission, improved Proteinuria Hematuria, which is resolving possibly due to IDC insertion, improved History Bipolar / ADD / Depression with suicidal ideations on admission was initially on mental health unit on court ordered evaluation. History of spina bifida History of spinal stenosis Obesity Chronic daily nicotine use GI Prophylaxis DVT Prophylaxis Full Code Plan: Patient is being monitored closely in the ICU and slowly improving. Continues on 5L HF via NC and Extubated on 07/25/2021 , weaning as tolerated as patient is 98% on 5 L Continues on IV zosyn, wbc is elevated although may be a component of steroid induced on IV steroids. Patient is afebrile. oral steroids, Duonebs, pulmicort, pulmonary transitioning to oral prednisone. Lasix transitioned to oral Recommend continue with electrolyte replacement per protocol [facility]. Psych evaluated and does not meet inpatient psych criteria, but is not able to make his own medical decisions and need ECF for continued PT/OT therapy. Court hearing next week for guardian. Patient is requesting to go home Recommend to continue with encouraging oral nutrition on soft foods Sitter at the bedside as well Continue all other supportive care Follow up AM labs Continue with psychiatry recommendations Social work consultation. The impression and plan of care has been dictated by Charmaine Minor, Nurse Practitioner as directed. Dr. Jonny MD I have performed a history and examination and MDM of this patient, discussed the same with the dictator, and agree with the dictator's assessment and plan as written ,documented as a scribe. Based on total visit time, I have performed more than 50% of the visit. Objective - Vital Signs Vital signs: Vital Signs Temp 97.6 F 07/30/21 08:05 Pulse 55 L 07/30/21 08:32 Resp 12 07/30/21 08:05 BP 112/71 07/30/21 08:05 Pulse Ox 93 L 07/30/21 08:05 FiO2 50 07/27/21 08:34 Intake & Output 07/29/21 07/30/21 07/30/21 18:59 06:59 18:59 Intake Total 570 200 100 Output Total 200 250 Balance 570 0 -150 Intake: IV 170 80 100 Piperacillin-Tazobactam 3 100 100 .375 gm In Sodium Chloride 0.9% 100 ml @ 25 mls/hr IVPB Q8HR [facility] Rx# :[id number] Sodium Chloride 0.9% 1, 70 80 000 ml @ 20 mls/hr IV . Q24H VINCE Rx#:[id number] Oral 400 120 Output: Urine 200 250 Other: Voiding Method External Catheter External Catheter # Voids 1 0 # Bowel Movements 1 ABP, PAP, CO, CI - Last Documented Arterial Blood Pressure 135/66 - Labs CBC & Chem 7: 07/30/21 07:01 07/30/21 07:01 Labs: Abnormal Lab Results - Last 24 Hours (Table) 07/29/21 07/29/21 07/29/21 Range/Units 11:59 16:04 16:26 RBC (4.30-5.90) m/uL Hct (39.0-53.0) % MCHC (31.0-37.0) g/dL RDW (11.5-15.5) % Carbon Dioxide (22-30) mmol/L BUN (9-20) mg/dL Creatinine (0.66-1.25) mg/dL Glucose (74-99) mg/dL POC Glucose (mg/dL) 158 H 243 H 287 H (75-99) mg/dL 07/29/21 07/30/21 07/30/21 Range/Units 21:08 07:01 07:01 RBC 6.25 H (4.30-5.90) m/uL Hct 53.8 H (39.0-53.0) % MCHC 29.4 L (31.0-37.0) g/dL RDW 16.7 H (11.5-15.5) % Carbon Dioxide 40 H (22-30) mmol/L BUN 32 H (9-20) mg/dL Creatinine 0.37 L (0.66-1.25) mg/dL Glucose 168 H (74-99) mg/dL POC Glucose (mg/dL) 157 H (75-99) mg/dL 07/30/21 Range/Units 07:07 RBC (4.30-5.90) m/uL Hct (39.0-53.0) % MCHC (31.0-37.0) g/dL RDW (11.5-15.5) % Carbon Dioxide (22-30) mmol/L BUN (9-20) mg/dL Creatinine (0.66-1.25) mg/dL Glucose (74-99) mg/dL POC Glucose (mg/dL) 145 H (75-99) mg/dL
[2021-07-30 16:24] LABS: Glucose,Whole Blood 226 mg/dL (75-99)
[2021-07-30 20:27] LABS: Glucose,Whole Blood 224 mg/dL (75-99)
[2021-07-30] MEDS: ATORVASTATIN 20 MG TAB PO SCH (20:42)
[2021-07-30] MEDS: QUEtiapine 25 MG TAB PO SCH (20:42)
[2021-07-30] MEDS: SODIUM CHLORIDE 0.9% 1,000 ML IV SCH ×2 (20:43→20:55)
[2021-07-31 06:30] LABS: Glucose,Whole Blood 130 mg/dL (75-99)
[2021-07-31] MEDS: INSULIN ASPART (NovoLOG) 100 UNIT/ML VIAL SQ SCH ×4 (06:30→21:05)
[2021-07-31] MEDS: FORMOTEROL FUMARATE 20 MCG/2 ML NEBU INHALATION SCH (07:06)
[2021-07-31] MEDS: BUDESONIDE 1 MG/2 ML NEBU INHALATION SCH (07:09)
[2021-07-31] MEDS: IPRATROPIUM-ALBUTEROL 3 ML NEB INHALATION SCH ×4 (07:09→19:45)
[2021-07-31] MEDS: PIPERACILLIN-TAZOBACTAM 3.375 GM in SODIUM CHLORIDE 0.9% 100 ML IVPB SCH ×4 (09:13→23:23)
[2021-07-31] MEDS: PANTOPRAZOLE 40 MG/10 ML VIAL IVP SCH ×2 (09:19→10:59)
[2021-07-31] MEDS: FUROSEMIDE 40 MG TAB PO SCH (09:19)
[2021-07-31] MEDS: clonazePAM 0.5 MG TAB PO PRN ×3 (09:19→21:05)
[2021-07-31] MEDS: predniSONE 20 MG TAB PO SCH (09:19)
[2021-07-31] MEDS: ENOXAPARIN 40 MG/0.4 ML SYRINGE SQ SCH (09:20)
[2021-07-31] MEDS: NICOTINE 21MG/24HR PATCH TRANSDERM SCH (09:20)
--- NOTE | 2021-07-31 10:06 | P.PN ---
Subjective Progress Note Date: 07/31/21 Principal diagnosis: COPD exacerbation 07/29/2021, I'm seeing the patient for a follow-up. He is awake and alert. Overnight he was quite restless. Nevertheless, there is no focal neurological deficit. No significant agitation. This morning, he is on oxygen at 8 L. He was weaned down to 6 L yesterday and earlier this morning after he pulled off his oxygen nasal cannula, he desaturated and he was placed back on 8 L nasal cannula. The patient otherwise is comfortable. His breathing is nonlabored. He continues to be treated with bronchodilators. He is also on IV Zosyn as an empiric antibiotic coverage. He remains on IV Lasix. No significant cough. No significance signs of labored breathing or respiratory distress. Chest x-ray shows lower lobe pulmonary infiltrates and atelectasis and it is a rotated film. No major interval change compared to yesterday. No pneumothorax. The overall fluid balance is -600 mL over the past 24 hours and the patient continues to receive daily Lasix doses of 40 mg IV. On today's blood work, his potassium is at 3.0 to be replaced. Sodium level is at 138, BUN is a 39 with a creatinine of 0.4. The white cell count of 15.0 with a hemoglobin of 16.3. The patient remains on bronchodilators. He remains on steroids and I started him on a prednisone burst taper as of yesterday. He remains on IV Zosyn. He is on Seroquel. He is on Luvox. Psychiatric even with the patient. He is not a candidate for inpatient therapy. He does not need also suicide precautions. He is off Precedex for now. Is taking Klonopin 0.5 mg on an as-needed basis. 07/30/2021, the patient is on 5 L of oxygen by nasal cannula is being gradually weaned off the FiO2. He is calm and comfortable. Breathing is nonlabored. His extubated. He remains on IV Zosyn. He remains on po Lasix. A repeat chest x- ray was done today shows some infiltrates in the lung bases bilaterally. This could be also atelectatic changes. Upper lobes bilaterally more clear compared to the lower lobes. The patient is afebrile. The patient is was adequately stable. The white cell count of 9 with a hemoglobin of 15.8 and a platelet count of 162. The patient has a sodium level of 139 with a potassium level of 3.6, creatinine is at 32 with a creatinine of 0.3. The patient is in a negative fluid balance of 450 mL over the past 24 hours. The patient is able to communicate. He remains on DuoNeb nebulized treatments around the clock. He remains on Lovenox 40 the prophylaxis. He is on a combination of Perforomist and Pulmicort overestimates twice a day and IV Zosyn and is completing a prednisone burst taper. IV fluids are currently at KVO. He is on his antidepressants which includes Klonopin, Luvox, and is also Seroquel 25 mg at bedtime. Not a candidate for inpatient psychiatric therapy. Please refer to the psychiatry note in this regard. Otherwise, no other significant events overnight and the patient is resting comfortably in bed. No agitation. Progress note dated 07/31/2021. This is a 45-year-old male who was admitted to the hospital back on July 18. He came into the hospital with a COPD exacerbation. He came to the intensive care unit with worsening respiratory status on July 20. He was intubated on the same day. He was extubated on 07/25/2021. Currently, he's on room air. He's not receiving any IV fluids. The patient is an overflow patient, and could be transferred out to the general medical floor. No new labs today other than a blood glucose of 130. Chest x-ray shows a basilar right lung infiltrate and/or atelectasis. The patient is currently on Zosyn and prednisone. Microbiology is as far negative. Objective - Vital Signs Vital signs: Vital Signs Temp 98.2 F 07/31/21 02:00 Pulse 56 L 07/31/21 07:31 Resp 14 07/31/21 07:31 BP 143/94 07/31/21 02:00 Pulse Ox 98 07/31/21 03:00 FiO2 50 07/27/21 08:34 Intake & Output 07/30/21 07/31/21 07/31/21 18:59 06:59 18:59 Intake Total 220 140 100 Output Total 900 1450 Balance -680 -1310 100 Weight 95 kg Intake: IV 100 140 100 Piperacillin-Tazobactam 3 100 100 100 .375 gm In Sodium Chloride 0.9% 100 ml @ 25 mls/hr IVPB Q8HR [facility] Rx# :[id number] Sodium Chloride 0.9% 1, 40 000 ml @ 20 mls/hr IV . Q24H [facility] Rx#:[id number] Oral 120 Output: Urine 900 1450 Other: Voiding Method Urinal Urinal # Voids 1 ABP, PAP, CO, CI - Last Documented Arterial Blood Pressure 135/66 - Exam No acute distress, oriented 3. Currently on room air. HEENT examination is grossly unremarkable. Neck supple. Full range of motion. No adenopathy thyromegaly or neck vein distention. Cardiovascular examination reveals regular rhythm rate. S1-S2 normal. No S3 or S4. No discernible murmur noted. Heart rate 56 bpm. Lungs reveal scattered bilateral rhonchi. No wheezes. No crackles. Breath sounds equal. Breath sounds diminished throughout. Room air saturations are in the low 90s. Abdomen soft bowel sounds are heard. No masses or tenderness. Extremities are intact. No cyanosis clubbing or edema. Skin is without rash or lesion. Neurologic examination is brief but nonfocal. - Labs CBC & Chem 7: 07/30/21 07:01 07/30/21 07:01 Labs: Abnormal Lab Results - Last 24 Hours (Table) 07/30/21 07/30/21 07/30/21 Range/Units 11:46 16:23 20:26 POC Glucose (mg/dL) 225 H 226 H 224 H (75-99) mg/dL 07/31/21 Range/Units 06:29 POC Glucose (mg/dL) 130 H (75-99) mg/dL Assessment and Plan Assessment: Acute exacerbation of COPD, requiring intubation on July 20, and extubation on the . Hypoxemic and hypercapnic respiratory failure with metabolic encephalopathy. Depression/bipolar disorder, with suicidal ideation. Chronic and ongoing tobacco dependence. History of diabetes mellitus. History of hypertension. History of spina bifida. History of pancreatitis. Chronic anxiety. Plan: Plan dated 07/31/2021. The patient continues on appropriate medications. Medications are reviewed. The patient could be transferred out of the ICU to the general medical floor. He continues on GI and DVT prophylaxis. The patient continues on prednisone with a burst and taper, and IV antibiotics. Culture data thus far is negative. No new labs today. We will continue to follow and make recommendations were appropriate. Prognosis is guarded. He will follow-up with his own information technology analyst, Dr. Donovan. Time with Patient: Less than 30
[2021-07-31 11:03] LABS: Glucose,Whole Blood 248 mg/dL (75-99)
--- NOTE | 2021-07-31 13:33 | P.PN ---
Progress Note - Text Progress Note Date: 07/31/21 Interval History: Patient was seen today for psychiatric follow-up. Patient was seen sitting in the chair next to his bed today. Patient was transferred from the ICU to the medical floors yesterday. Patient was fairly pleasant with senior writer and was fairly concrete and appropriate. He continues to have superficial insight and judgment however was denying any overnight complaints. He states that he is doing "better" overall and is denying any depression or anxiety at this time. He states that he slept fairly last night. He is fairly concrete and monotone. He has been taking his medications and agrees to continue taking them. At this time patient denies any suicidal or homical ideations, intent or plan. Patient denies any auditory, visual hallucinations and denies any paranoia or delusions. Patient denies any side effects from the medications and has been compliant with meds. Mental Status Exam: General Appearance: Patient appears to be overweight, poor dentition, stated age is alert, attempts to cooperate. Behavior: Patient is calmly seated without any agitated behavior. Attempts to cooperate. Speech: Patient's speech is fluent and nonpressured. [place] and monotone, improving mildly Mood/Affect: Mood is improving mildly, affect is congruent and brighter today. Suicidality/Homicidality: Patient denies having any suicidal or homicidal ideation intent or plan. Perceptions: Patient denies any visual hallucinations and denies any auditory hallucinations Though content/process: [place], not endorsing any delusions or paranoia. Poverty of content. Memory and concentration: AOX3, grossly intact for the purposes of this session Judgment and insight: Chronically limited, Improving mildly Assessment Delirium, toxic-metabolic and medications as likely the cause Depressive disorder unspecified, rule out schizoaffective depressive type versus bipolar depression Nicotine dependence Plan: -At this time patient DOES NOT meet criteria for inpatient psychiatric admission. -Patient DOES NOT have decision making capacity at this time and is unable to reason through and communicate/appreciate the risks, benefits and alternatives to treatment. -Delirium precautions recommended with patient including - avoiding use of narcotics and [employer] sedatives, limit anticholinergic medications when possible, frequent re-orientation, minimize use of restraints, open window shades during the day and close them at night -Would recommend the following medication changes/additions: Seroquel 25 mg daily at bedtime for sleep/mood stabilization. Continue with current medications as prescribed. Continue with monitoring for benzodiazepine withdrawal. Continue with Klonopin when necessary. -Patient has court hearing date set for August 01 for MH treatment. -Communicated plan to patient's nurse -At this time will sign off. team looking for placement. -Please contact with any questions.
[2021-07-31 16:50] LABS: Glucose,Whole Blood 173 mg/dL (75-99)
--- NOTE | 2021-07-31 17:45 | P.PN ---
Subjective Progress Note Date: 07/31/21 This is a 45-year-old male who initially was evaluated on [facility] where he was admitted as a court ordered petition for medication adjustments. Patient has a past medical history significant for bipolar type I, ADD, asthma, COPD, diabetes mellitus, hypertension, gastroesophageal reflux disease, spinal bifida with spinal stenosis, patient is a daily smoker since the age of 11, currently smoking 2 packs per day. He denies any alcohol use, denies illicit drug use. States he lives with his mother, uses a wheel chair for transportation. He reportedly has been unable to care for his basic needs, and presents with poor hygiene. He is currently pending psychiatric evaluation. He was transferred to the medical floor as he was found to have significant shortness of breath making it difficult to carry on a conversation. He reports this has been going on at home for 2 weeks now and was evaluated at his PCP's office. He reports 2-3 days ago the shortness of breath worsened and he has clear nasal drainage and congestion. He denies fever or chills. Denies chest pain. Denies nausea, vomiting, diarrhea. Initial diagnostics [facility] include EKG showing sinus rhythm with a heart rate of 72, there is no ST or T wave abnormalities noted. Lab on admission showing white count 12.1, hemoglobin 17.7, hematocrit is elevated at 60.9. Chemistry panel showing sodium 138, potassium 4.8, CO2 34, BUN 17, creatinine 0.63, glucose of 105. Urinalysis positive for 1+ protein, 4+ glucose, 1+ ketone with occasional mucus. His urine drug toxicology is positive for tricyclic antidepressants, benzodiazepines. Covid is not detected. Chest xray showing new right basilar acute infiltrate and or atelectasis. He was found to be hypoxic on room air in the 90s, reports to not wearing any home oxygen. He required 4-6 L of oxygen to stabilize and was transferred to the medical floor where he was re-evaluated. He was started on IV solu-medrol, and duonebs. Pulmonary services were consulted for evaluation. Patient appears to have worsening hypoxia when sleeping, possibility of an obstructive sleep apnea. He is lethargic today as well, arrousable to voice, stopped the klonopin and decreased seroquel. Final med reqs from psychiatry. D-Dimer negative, procalcitonin 0.08. Influenza A and B also not detected. Current vital signs include heart rate of 90, blood pressure 133/79, 96% on 4L nasal cannula. 07/20/2021 Patient evaluated today on BiPAP. Yesterday afternoon he was quite lethargic, seroquel was decreased down to 25 mg PO HS and klonopin was discontinued for now. Any additional recommendations reguarding his psychiatric medications from psych consultation as patient was on a court order petition for mental health treatment. ABG's were completed yesterday showing pH of 7.25, PCO2 of 92, PO2 of 71, HCO3 of 40, total CO2 43, ox saturation 93.6. He was placed on a 40% fio2 BiPAP. He continues with 1:1 Sitter at the bedside as well. Labs today showing a white count of 15.20, hgb 16.1, hematocrit has improved slightly to 57.4. Sodium 142, potassium 5.4, BUN 19, creat 0.5. Blood glucose is in the 100-90s. We are continuing to hold his home insulin, metformin and actos, and covering with sliding scale as needed. He continues on jardiance. Vital signs today showing temp of 98.1, heart rate 82, blood pressure 128/77, oxygen saturation of 94% on BiPAP. Blood cultures are showing negative. He was started on empiric antibiotic coverage with zosyn today by pulmonary team, he continues also IV steroids which were increased to every 8 hours today, as well as duonebs and pulmicort. Patient was evaluated by pulmonary team today and is being transferred to the ICU this morning for closer monitoring regarding his respiratory status. He is answering questions appropriately, however states he was at his moms house. He is more alert, and moving all extremities with equal strength. He also continues with watery drainage from his eyes. He is complaining of back pain today. 07/21/2021 Patient is evaluated today in the ICU, he was intubated yesterday at 1730, his PCO2 has come down to 40, current fi02 65%. White count today 10.2, sodium 140, potassium 2.8, BUN 35, creat 0.54, blood glucose in the 160s. Critical phosphorous yesterday at 0.7 was replaced and now 2.1, and will receive additional IV phosphorous today. AST 15, albumin 3.3. Patient had hematuria and repeat urinalysis was done showing 1+ protein, 4+glucose, 4+ketones, large blood, 1+bili, >182 RBC. Lovenox was discontinued. Platelet count is stable at 229. He is receiving sedation with propofol. He is also receiving IV ativan and had required haldol for acute agitation. He will be started on a versed infusion for agitation. On IV zosyn, IV solu-medrol, duonebs. He has been started on tube feedings. Continues with 1:1 sitter and followed by psychiatry. He is being followed closely by pulmonary catalyst recovery operator services. 07/22/2021 Patient evaluated today in the ICU on 50% FiO2, he continues on propofol clevip asad and versed infusion. No BM since the although he has not had much oral intake. Will give a one time dose of lactulose today, and he continues on tube feedings at rate of 20 pending dietary evaluation tomorrow as there is no goal documented. Labs today showing white count 7.4, platelets 226, hgb 16.0, hct 53.6. Sodium 141, potassium 4.1, BUN 36, creat 0.46, blood glucose 131. AST 12, albumin 3.0. BNP 886. Chest xray today showing cardiomegaly, persistent bilateral acute infiltrates and or atelectasis and likely small tiny bilateral pleural effusions. Stable from one day earlier. He has remained afebrile, heart rate 60's, blood pressure 136/57, 95% on room air. Sputum culture and blood culture pending. He is on IV zosyn. Urine output is about 27 mls per hour in the last 24 hours, urine is brown in color, although creat is low normal. He continues on IV fluids at 100 mls per hour. 07/23/2021 Patient evaluated today continues in the ICU, intubated with fi02 of 50%. He continues on Versed infusion and klonopin was resumed today with plans to attempt to wean off the versed. He continues on luvox, and seroquel remains discontinued. Per RN patients sister was at the bedside and states that patient does not have a safe home environment with his mother and social work was cons ulted. Chest xray today showing basilar atelectasis versus pneumonia, difficult to exclude small effusions. Continues on IV Zosyn, IV steroids decreased to BID today. Patient was also started on IV lasix and fluids discontinued today by pulmonary team. He continues on IV propofol and IV cleviprex. Continues on parenteral feedings. Has not had a BM yet received a dose of lactulose yesterday, will receive another dose today no BM since the . Abdomen is soft and nontender and he has normoactive bowel sounds. His eyes are improving and look better today again, redness is resolving and there is less crusting noted today. Labs today showing WBC 8.6, platelet count 205, neutrophils 7.9. Repeat ABG's today showing pCO2 51, HCO3 33, total CO2 35, O2 saturation 97.3. Sodium 142, potassium 4.3, BUN 35, creat 0.51, AST 12 ALT 7, alk phos 65, blood glucose in the 140s. 07/24/2021 Patient remains in the ICU, he is intubated on FiO2 of 50%. He was weaned off the versed gtt and resumed on oral klonopin. Continues on IV zosyn, IV solu- medrol, IV lasix. He is receiving IV cleviprex and IV propofol. Also receiving IV ativan push for breakthrough agitation. He is awake today, his eyes are openi ng, he was trying to sit up. His weight is up today and lasix was increased to every 8 hours, fluids remain at KVO. Repeat chest xray today showing bibasilar effusions and associated atelectasis vs. pneumonia or edema. Correlate for congestive heart failure. Procalcitonin follow up yesterday 0.04. He is bradycardic today heart rate in the 50's, blood pressure 124/68, afebrile, 95% oxygenation. Echocardiogram has been ordered. Continues on enteral nutrition, he is at goal. Blood sugars in the 130-160 range, and is receiving novolog for coverage. If patient continues with breakthrough agitation can resume seroquel at HS. 07/25/2021 Patient is seen in follow-up continues to be in the ICU on sedation and mechanical ventilation with an FiO2 of 50% and PEEP is 5. Sedation holidays and process to assess weaning parameters along with mentation. Pulmonary catalyst recovery operator along with psychiatry following closely. Patient is also continued on IV Lasix and will continue and monitor intake and output closely. Klonopin has been resumed and will continue for now. Psychiatry also following him recommend continuing with current medication regimen and appreciate input and recommendations. Patient continues with anterior nutrition and will continue. We'll have physical therapy evaluate the patient. Patient also continues on IV Zosyn empirically with the possibility of aspiration pneumonia. Recommend repeat labs and follow-up chest x-ray. 07/26/2021 Patient is seen in follow-up this morning continues to be in the ICU and recently extubated and continued on BiPAP. Patient does have a sitter at the bedside as patient continues to attempt to remove the BiPAP mask. White blood count jumped from 6.5-22.6 and hemoglobin is stable at 16.9, sodium is 142 and, potassium is 3.2 and will replace per protocol, pro-calcitonin 0.20 and urinalysis was sent and will await cultures. Sputum culture finalized with normal respiratory radha and no staph aureus or Pseudomonas noted. Patient will continue on IV Zosyn for now and await cultures. Patient also continues on IV steroids along with breathing inhalational treatments with pulmonary following closely. Patient requiring some Precedex and some oral psychiatric medications have been resumed. Chest x-ray shows suspect some improvement in aeration with lung volume as compared to prior exam. BiPAP is 50% FiO2 with PEEP of 5. Archie haywood will need physical therapy for evaluation and will also consult social work and appreciate input and recommendations from psychiatry. Patient is afebrile. Patient denying chest pain. 07/27/2021 Patient is in the MICU with multiple medical consultations following and is currently sitting up in the chair and has 02 via NC at 15 liters HF today and tolerating. Patient has not required bipap. Patient is up and eating and tolerating and taking medications. Psychiatry following along with social work as there is a court hearing early next week for guardian. Patient is weak and needs PT/OT daily. Patient is afebrile, denies worsening shortness of breath, or chest pains. Patient more alert and in better spirits today. Sitter at the bedside. 07/28/2021 Patient is in the ICU and pulmonary following closely. Weaning FI02 as tolerated. Currently 10LHF and titrating down to 8L HF at 95%. Chest xray ordered and patient tolerating NC. Sitter at the bedside. Patient also to continue IV zosyn and IV steroids being transitioned to oral prednisone. Recommend follow up chest xray and continued breathing inhalational treatments. Tolerating oral diet. No chest pain or palpitations noted. Afebrile. 07/29/2021 Patient continues in the ICU and currently down to 6L HF via NC with pulmonary following. Patient transitioned to oral prednisone and will continue IV zosyn for now. Patient is tolerating diet and is cooperative. Sitter at the bedside and psychiatry following as well. Social work following for possible ecf and there is a court hearing scheduled for this week. Potassium is 3.0 today and will replace per protocol. Maintained on oral lasix. 07/30/2021 Patient continues to be in the ICU with multiple medical consultations following. Patient is now maintained on 5 L high flow and on exam found the patient with his oxygen off and really encouraged the patient to continue using oxygen and discuss with nursing staff about weaning as tolerated. Patient is 98% on 5 L with pulmonary following. Labs within normal limits today and patient is afebrile. Patient continues on IV Zosyn and cultures have been negative. Patient also continues on oral prednisone and recommend continued breathing treatments. Patient requesting if he could go home although will need to discuss with psychiatry as patient came in initially with suicidal ideations. Possible ECF as patient is continued with weakness. Patient is afebrile and denies any chest pain or worsening shortness of breath. Patient is tolerating diet. 07/31/2021 Patient is seen today on a med-surg unit and is continued on 2L via NC with pulmonary following. Psychiatry following and patient does not meet criteria for inpatient psych. Patient has a legal guardian and working with social for possible ecf. Patient maintained on IV antibiotics and is afebrile. Patient denies chest pain or shortness of breath. Patient is tolerating diet. Patient is extremely anxious and asking about being discharged home. PT following and working with patient daily recommend JOSE ANGEL. Review of systems: Constitutional: No reports of fatigue, fever, or chills Cardiovascular: No reports of chest pain or palpitations Respiratory: No reports of shortness of breath or cough GI: No reports of nausea, vomiting, or diarrhea : No reports of dysuria or retention Neurovascular: No reports of weakness or numbness Active Medications Acetaminophen (Acetaminophen Tab 325 Mg Tab) 650 mg PO Q6HR PRN PRN Reason: Fever and/ or Mild Pain Albuterol/Ipratropium (Ipratropium-Albuterol 3 Ml Neb) 3 ml INHALATION RT-Q2H PRN PRN Reason: Shortness Of Breath Or Wheezing Last Admin: 07/24/21 23:26 Dose: 3 ml Albuterol/Ipratropium (Ipratropium-Albuterol 3 Ml Neb) 3 ml INHALATION RT-QID [facility] Last Admin: 07/31/21 15:31 Dose: 3 ml Atorvastatin Calcium (Atorvastatin 20 Mg Tab) 20 mg PO HS [facility] Last Admin: 07/30/21 20:42 Dose: 20 mg Budesonide/Formoterol Fumarate (Symbicort 160-4.5 Mcg Inhaler) 2 puff INHA LATION RT-BID [facility] Clonazepam (Clonazepam 0.5 Mg Tab) 0.5 mg PO TID PRN PRN Reason: Anxiety Last Admin: 07/31/21 14:42 Dose: 0.5 mg Enoxaparin Sodium (Enoxaparin 40 Mg/0.4 Ml Syringe) 40 mg SQ DAILY [facility] Last Admin: 07/31/21 09:20 Dose: 40 mg Fluvoxamine Maleate (Fluvoxamine 50 Mg Tab) 50 mg PO DAILY [facility] Last Admin: 07/31/21 09:20 Dose: 50 mg Fluvoxamine Maleate (Fluvoxamine 50 Mg Tab) 100 mg PO HS [facility] Last Admin: 07/30/21 20:42 Dose: 100 mg Furosemide (Furosemide 40 Mg Tab) 40 mg PO DAILY [facility] Last Admin: 07/31/21 09:19 Dose: 40 mg Piperacillin Sod/Tazobactam (Sod 3.375 gm/ Sodium Chloride) 100 mls @ 25 mls/hr IVPB Q8HR [facility]; Protocol Last Admin: 07/31/21 16:34 Dose: 25 mls/hr Insulin Aspart (Insulin Aspart (Novolog) 100 Unit/Ml Vial) 0 unit SQ ACHS [facility]; Protocol Last Admin: 07/31/21 12:48 Dose: 8 unit Miscellaneous Information (Phosphorus Replacement Protoco 1 Each Misc) 1 each MISCELLANE DAILY PRN; Protocol PRN Reason: Per Protocol Miscellaneous Information (Potassium Replacement Protocol 1 Each Misc) 1 each MISCELLANE DAILY PRN; Protocol PRN Reason: Per Protocol Miscellaneous Information (Potassium Replacement Protocol 1 Each Misc) 1 each MISCELLANE DAILY PRN; Protocol PRN Reason: Per Protocol Nicotine (Nicotine 21mg/24hr Patch) 1 patch TRANSDERM DAILY [facility] Last Admin: 07/31/21 09:20 Dose: 1 patch Pantoprazole Sodium (Pantoprazole 40 Mg/10 Ml Vial) 40 mg IVP DAILY [facility] Last Admin: 07/31/21 10:59 Dose: 40 mg Prednisone (Prednisone 20 Mg Tab) 40 mg PO DAILY [facility] Stop: 08/01/21 09:01 Last Admin: 07/31/21 09:19 Dose: 40 mg Prednisone (Prednisone 10 Mg Tab) 30 mg PO DAILY [facility] Stop: 08/04/21 09:01 Prednisone (Prednisone 20 Mg Tab) 20 mg PO DAILY [facility] Stop: 08/09/21 09:01 Prednisone (Prednisone 10 Mg Tab) 10 mg PO DAILY [facility] Stop: 08/13/21 09:01 Prednisone (Prednisone 5 Mg Tab) 5 mg PO DAILY [facility] Stop: 08/17/21 09:01 Quetiapine Fumarate (Quetiapine 25 Mg Tab) 25 mg PO HS [facility] Last Admin: 07/30/21 20:42 Dose: 25 mg PHYSICAL EXAMINATION: GENERAL: The patient is recently extubated on 07/25 and is now on 2 liter via NC and sitting up in the chair . Obese. HEENT: Pupils are 2+ in size. EOMI. No conjunctival pallor. Normocephalic, atraumatic. No pharyngeal erythema. No thyromegaly. Poor dentition. He does wear top dentures which are currently not in place. CARDIOVASCULAR: S1 and S2 muffled PULMONARY: Chest is diminished. Some scattered rhonchi noted ABDOMEN: Soft, nontender, nondistended, normoactive bowel sounds. No palpable organomegaly. MUSCULOSKELETAL: No joint swelling or deformity. EXTREMITIES: No cyanosis, clubbing, or pedal edema. NEUROLOGICAL: cooperative and calm and answering questions SKIN: Generalized rash Assessment: Acute hypoxic and hypercarbic respiratory failure secondary to COPD exacerbation recently extubated on 525 now on 2L via NC Rule out aspiration pneumonia Fluid overload, improved hypokalemia, improved Conjunctivitis with eye crusting, improved History of asthma, COPD History of hypertension Diabetes Mellitus type 2 with hypoglycemia on admission, improved Proteinuria Hematuria, which is resolving possibly due to IDC insertion, improved History Bipolar / ADD / Depression with suicidal ideations on admission was initially on mental health unit on court ordered evaluation. History of spina bifida History of spinal stenosis Obesity Chronic daily nicotine use GI Prophylaxis DVT Prophylaxis Full Code Plan: Patient is being monitored closely and recently moved out of the ICU today and continues on 2L via NC and weaning as tolerated. Encourage IS use at least 10 times per hour. Recommend continuing current medications and breathing treatments. Recommend PT/OT therapy daily. Court hearing tomorrow with guardian about ECF versus fci. Patient is significantly weak and would benefit from ECF for strength and mobility. Due to multiple complex medical issues, prognosis is guarded. Will await discussion with social work and guardian. Recommend repeat labs. The impression and plan of care has been dictated by Charmaine Minor, Nurse Practitioner as directed. Dr. Jonny MD I have performed a history and examination and MDM of this patient, discussed the same with the dictator, and agree with the dictator's assessment and plan as written ,documented as a scribe. Based on total visit time, I have performed more than 50% of the visit. Objective - Vital Signs Vital signs: Vital Signs Temp 98.2 F 07/31/21 02:00 Pulse 56 L 07/31/21 07:31 Resp 14 07/31/21 07:31 BP 143/94 07/31/21 02:00 Pulse Ox 98 07/31/21 03:00 FiO2 50 07/27/21 08:34 Intake & Output 07/30/21 07/31/21 07/31/21 18:59 06:59 18:59 Intake Total 220 140 100 Output Total 900 1450 Balance -680 -1310 100 Weight 95 kg Intake: IV 100 140 100 Piperacillin-Tazobactam 3 100 100 100 .375 gm In Sodium Chloride 0.9% 100 ml @ 25 mls/hr IVPB Q8HR [facility] Rx# :[id number] Sodium Chloride 0.9% 1, 40 000 ml @ 20 mls/hr IV . Q24H [facility] Rx#:[id number] Oral 120 Output: Urine 900 1450 Other: Voiding Method Urinal Urinal # Voids 1 ABP, PAP, CO, CI - Last Documented Arterial Blood Pressure 135/66 - Labs CBC & Chem 7: 07/30/21 07:01 07/30/21 07:01 Labs: Abnormal Lab Results - Last 24 Hours (Table) 07/30/21 07/30/21 07/30/21 Range/Units 11:46 16:23 20:26 POC Glucose (mg/dL) 225 H 226 H 224 H (75-99) mg/dL 07/31/21 Range/Units 06:29 POC Glucose (mg/dL) 130 H (75-99) mg/dL
[2021-07-31 19:45] LABS: Glucose,Whole Blood 197 mg/dL (75-99)
[2021-07-31] MEDS: SYMBICORT 160-4.5 MCG INHALER INHALATION SCH (19:56)
[2021-07-31] MEDS: ATORVASTATIN 20 MG TAB PO SCH (21:05)
[2021-07-31] MEDS: QUEtiapine 25 MG TAB PO SCH (21:05)
[2021-07-31] MEDS: CHLORHEXIDINE GLUCONATE 15 ML CUP MUCOUS MEM SCH (22:32)
[2021-08-01 06:59] LABS: Glucose,Whole Blood 117 mg/dL (75-99)
[2021-08-01] MEDS: INSULIN ASPART (NovoLOG) 100 UNIT/ML VIAL SQ SCH ×4 (07:41→20:36)
[2021-08-01] MEDS: IPRATROPIUM-ALBUTEROL 3 ML NEB INHALATION SCH ×4 (08:20→21:50)
[2021-08-01] MEDS: SYMBICORT 160-4.5 MCG INHALER INHALATION SCH ×2 (08:20→21:50)
[2021-08-01] MEDS: PIPERACILLIN-TAZOBACTAM 3.375 GM in SODIUM CHLORIDE 0.9% 100 ML IVPB SCH (08:26)
[2021-08-01] MEDS: PANTOPRAZOLE 40 MG/10 ML VIAL IVP SCH (08:26)
[2021-08-01] MEDS: NICOTINE 21MG/24HR PATCH TRANSDERM SCH (08:27)
[2021-08-01] MEDS: predniSONE 10 MG TAB PO SCH (08:29)
[2021-08-01] MEDS: FUROSEMIDE 40 MG TAB PO SCH (08:29)
[2021-08-01] MEDS: predniSONE 20 MG TAB PO SCH (08:30)
[2021-08-01] MEDS: ENOXAPARIN 40 MG/0.4 ML SYRINGE SQ SCH (08:31)
[2021-08-01] MEDS: clonazePAM 0.5 MG TAB PO PRN ×2 (08:39→18:25)
[2021-08-01 11:09] LABS: Glucose,Whole Blood 274 mg/dL (75-99)
[2021-08-01] MEDS ORDERED: HYDROcodone/APAP 5-325MG 1 EACH TAB PO PRN (11:18)
[2021-08-01 12:36] LABS: Anisocytosis Slight; Basophils # (A) 0.1 k/uL (0-0.2); Basophils % (A) 1 %; Eosinophils # (A) 0.1 k/uL (0-0.7); Eosinophils % (A) 0 %; HGB 16.6 gm/dL (13.0-17.5); Hypochromasia Marked; Lymphocytes # (A) 0.6 k/uL (1.0-4.8); Lymphocytes % (A) 6 %; MCH 25.8 pg (25.0-35.0); MCHC 30.2 g/dL (31.0-37.0); MCV 85.3 fL (80.0-100.0); Monocytes # (A) 0.3 k/uL (0-1.0); Monocytes % (A) 2 %; Neutrophils # (A) 9.7 k/uL (1.3-7.7); Neutrophils % (A) 90 %; Platelet Count 180 k/uL (150-450); RBC 6.44 m/uL (4.30-5.90); RDW 16.4 % (11.5-15.5); WBC 10.8 k/uL (3.8-10.6)
[2021-08-01 12:40] LABS: African American GFR (CKD) >90 (>60 ml/min/1.73 sqM); Anion Gap 7 mmol/L; Blood Urea Nitrogen 10 mg/dL (9-20); Calcium 9.2 mg/dL (8.4-10.2); Carbon Dioxide 36 mmol/L (22-30); Chloride 92 mmol/L (98-107); Glucose 356 mg/dL (74-99); Non-African American GFR(CKD) >90 (>60 ml/min/1.73 sqM); Potassium 3.5 mmol/L (3.5-5.1); Sodium 135 mmol/L (137-145)
--- NOTE | 2021-08-01 12:49 | P.PN ---
Subjective Progress Note Date: 08/01/21 Principal diagnosis: Altered mental status, pneumonia On 08/01/2021 patient seen in follow-up on medical surgical floor, he is awake and alert, oriented 3, breathing comfortably, he is currently on 2 L of oxygen pulse ox is 96%, afebrile, hemodynamically stable, he has had no fever or chills, vitals have been stable, no worsening cough or congestion. No altered mentation. Has not required BiPAP support, his oxygenation has improved and his oxygen demand has significantly improved and is currently down to 2 L from high flow oxygen a few days ago. No confusion or agitation. he is cooperative, and pleasant, he remains on Zosyn. His IV steroids have been transitioned to oral prednisone. Today's labs have been reviewed showing white blood cell count of 10.8, hemoglobin of 16.6, sodium is 135, potassium 3.5, chloride is 92, CO2 36, BUN is 10, creatinine 0.37, patient remains on maintenance dose of oral Lasix 40 mg daily, he has completed 11 days of zosyn Objective - Vital Signs Vital signs: Vital Signs Temp 97.5 F L 08/01/21 05:00 Pulse 67 08/01/21 08:35 Resp 18 08/01/21 05:00 BP 134/82 08/01/21 05:00 Pulse Ox 90 L 08/01/21 08:21 FiO2 50 07/27/21 08:34 Intake & Output 07/31/21 08/01/21 08/01/21 18:59 06:59 18:59 Intake Total 300 Output Total 1000 Balance -700 Weight 95 kg 91 kg Intake: IV 100 Piperacillin-Tazobactam 3 100 .375 gm In Sodium Chloride 0.9% 100 ml @ 25 mls/hr IVPB Q8HR [facility] Rx# :[id number] Intake, IV Titration 200 Amount Piperacillin-Tazobactam 3 200 .375 gm In Sodium Chloride 0.9% 100 ml @ 25 mls/hr IVPB Q8HR [facility] Rx# :[id number] Output: Urine 1000 Other: Voiding Method Urinal Urinal Urinal # Voids 1 4 # Bowel Movements 1 ABP, PAP, CO, CI - Last Documented Arterial Blood Pressure 135/66 - Exam GENERAL EXAM: Alert, very pleasant, 45-year-old white male, sitting up in the recliner, breathing comfortably, 2 L of oxygen and pulse ox of 96% comfortable in no apparent distress. HEAD: Normocephalic/atraumatic. EYES: Normal reaction of pupils, equal size. Conjunctiva pink, sclera white. NOSE: Clear with pink turbinates. THROAT: No erythema or exudates. NECK: No masses, no JVD, no thyroid enlargement, no adenopathy. CHEST: No chest wall deformity. Symmetrical expansion. LUNGS: Equal air entry with no crackles, wheeze, rhonchi or dullness. CVS: Regular rate and rhythm, normal S1 and S2, no gallops, no murmurs, no rubs ABDOMEN: Soft, nontender. No hepatosplenomegaly, normal bowel sounds, no guarding or rigidity. EXTREMITIES: No clubbing, no edema, no cyanosis, 2+ pulses and upper and lower extremities. MUSCULOSKELETAL: Muscle strength and tone normal. SPINE: No scoliosis or deformity SKIN: No rashes CENTRAL NERVOUS SYSTEM: Alert and oriented -3. No focal deficits, tone is normal in all 4 extremities. PSYCHIATRIC: Alert and oriented -3. Appropriate affect. Intact judgment and insight. - Labs CBC & Chem 7: 08/01/21 12:03 07/30/21 07:01 Labs: Abnormal Lab Results - Last 24 Hours (Table) 07/31/21 07/31/21 08/01/21 Range/Units 16:48 19:43 06:51 POC Glucose (mg/dL) 173 H 197 H 117 H (75-99) mg/dL 08/01/21 Range/Units 11:08 POC Glucose (mg/dL) 274 H (75-99) mg/dL Assessment and Plan Plan: Assessment: #1. Acute exacerbation of COPD, requiring intubation on July 20, and successful wean and extubation on 07/25/2021 #2. Acute hypoxic and hypercapnic respiratory failure with metabolic encephalopathy, improved #3. Depression/bipolar disorder with suicidal ideation #4. Chronic and ongoing tobacco dependence #5. History of diabetes mellitus #6. Hypertension #7. Spina bifida #8. Pancreatitis #9. Anxiety Plan: Clinically patient is stable, breathing comfortably Has completed 11 day course of Zosyn Vital signs have been stable, no fever or chills Discontinue Zosyn Patient can complete oral prednisone taper Increase activity as tolerated Obtain home oxygen assessment he can be considered for discharge home or subacute rehab if he qualifies Outpatient follow-up with Dr. Salome chase I have personally seen and examined the patient, performed the documentation and the assessment and plan as written. Number of minutes spent on the visit: [10] Time with Patient: Less than 30
[2021-08-01 17:19] LABS: Glucose,Whole Blood 269 mg/dL (75-99)
[2021-08-01] MEDS: QUEtiapine 25 MG TAB PO SCH (19:38)
[2021-08-01] MEDS: ATORVASTATIN 20 MG TAB PO SCH (19:39)
[2021-08-01 20:08] LABS: Glucose,Whole Blood 270 mg/dL (75-99)
--- NOTE | 2021-08-02 02:06 | P.PN ---
Subjective Progress Note Date: 08/01/21 This is a 45-year-old male who initially was evaluated on [facility] where he was admitted as a court ordered petition for medication adjustments. Patient has a past medical history significant for bipolar type I, ADD, asthma, COPD, diabetes mellitus, hypertension, gastroesophageal reflux disease, spinal bifida with spinal stenosis, patient is a daily smoker since the age of 11, currently smoking 2 packs per day. He denies any alcohol use, denies illicit drug use. States he lives with his mother, uses a wheel chair for transportation. He reportedly has been unable to care for his basic needs, and presents with poor hygiene. He is currently pending psychiatric evaluation. He was transferred to the medical floor as he was found to have significant shortness of breath making it difficult to carry on a conversation. He reports this has been going on at home for 2 weeks now and was evaluated at his PCP's office. He reports 2-3 days ago the shortness of breath worsened and he has clear nasal drainage and congestion. He denies fever or chills. Denies chest pain. Denies nausea, vomiting, diarrhea. Initial diagnostics for admission to [facility] include EKG showing sinus rhythm with a heart rate of 72, there is no ST or T wave abnormalities noted. Lab on admission showing white count 12.1, hemoglobin 17.7, hematocrit is elevated at 60.9. Chemistry panel showing sodium 138, potassium 4.8, CO2 34, BUN 17, creatinine 0.63, glucose of 105. Urinalysis positive for 1+ protein, 4+ glucose, 1+ ketone with occasional mucus. His urine drug toxicology is positive for tricyclic antidepressants, benzodiazepines. Covid is not detected. Chest xray showing new right basilar acute infiltrate and or atelectasis. He was found to be hypoxic on room air in the 90s, reports to not wearing any home oxygen. He required 4-6 L of oxygen to stabilize and was transferred to the medical floor where he was re-evaluated. He was started on IV solu-medrol, and duonebs. Pulmonary services were consulted for evaluation. Patient appears to have worsening hypoxia when sleeping, possibility of an obstructive sleep apnea. He is lethargic today as well, arrousable to voice, stopped the klonopin and decreased seroquel. Final med reqs from psychiatry. D-Dimer negative, procalcitonin 0.08. Influenza A and B also not detected. Current vital signs include heart rate of 90, blood pressure 133/79, 96% on 4L nasal cannula. 07/20/2021 Patient evaluated today on BiPAP. Yesterday afternoon he was quite lethargic, seroquel was decreased down to 25 mg PO HS and klonopin was discontinued for now. Any additional recommendations reguarding his psychiatric medications from psych consultation as patient was on a court order petition for mental health treatment. ABG's were completed yesterday showing pH of 7.25, PCO2 of 92, PO2 of 71, HCO3 of 40, total CO2 43, ox saturation 93.6. He was placed on a 40% fio2 BiPAP. He continues with 1:1 Sitter at the bedside as well. Labs today showing a white count of 15.20, hgb 16.1, hematocrit has improved slightly to 57.4. Sodium 142, potassium 5.4, BUN 19, creat 0.5. Blood glucose is in the 100-90s. We are continuing to hold his home insulin, metformin and actos, and covering with sliding scale as needed. He continues on jardiance. Vital signs today showing temp of 98.1, heart rate 82, blood pressure 128/77, oxygen saturation of 94% on BiPAP. Blood cultures are showing negative. He was started on empiric antibiotic coverage with zosyn today by pulmonary team, he continues also IV steroids which were increased to every 8 hours today, as well as duonebs and pulmicort. Patient was evaluated by pulmonary team today and is being transferred to the ICU this morning for closer monitoring regarding his respiratory status. He is answering questions appropriately, however states he was at his moms house. He is more alert, and moving all extremities with equal strength. He also continues with watery drainage from his eyes. He is complaining of back pain today. 07/21/2021 Patient is evaluated today in the ICU, he was intubated yesterday at 1730, his PCO2 has come down to 40, current fi02 65%. White count today 10.2, sodium 140, potassium 2.8, BUN 35, creat 0.54, blood glucose in the 160s. Critical phosphorous yesterday at 0.7 was replaced and now 2.1, and will receive additional IV phosphorous today. AST 15, albumin 3.3. Patient had hematuria and repeat urinalysis was done showing 1+ protein, 4+glucose, 4+ketones, large blood, 1+bili, >182 RBC. Lovenox was discontinued. Platelet count is stable at 229. He is receiving sedation with propofol. He is also receiving IV ativan and had required haldol for acute agitation. He will be started on a versed infusion for agitation. On IV zosyn, IV solu-medrol, duonebs. He has been started on tube feedings. Continues with 1:1 sitter and followed by psychiatry. He is being followed closely by pulmonary floor layer services. 07/22/2021 Patient evaluated today in the ICU on 50% FiO2, he continues on propofol clevip asad and versed infusion. No BM since the although he has not had much oral intake. Will give a one time dose of lactulose today, and he continues on tube feedings at rate of 20 pending dietary evaluation tomorrow as there is no goal documented. Labs today showing white count 7.4, platelets 226, hgb 16.0, hct 53.6. Sodium 141, potassium 4.1, BUN 36, creat 0.46, blood glucose 131. AST 12, albumin 3.0. BNP 886. Chest xray today showing cardiomegaly, persistent bilateral acute infiltrates and or atelectasis and likely small tiny bilateral pleural effusions. Stable from one day earlier. He has remained afebrile, heart rate 60's, blood pressure 136/57, 95% on room air. Sputum culture and blood culture pending. He is on IV zosyn. Urine output is about 27 mls per hour in the last 24 hours, urine is brown in color, although creat is low normal. He continues on IV fluids at 100 mls per hour. 07/23/2021 Patient evaluated today continues in the ICU, intubated with fi02 of 50%. He continues on Versed infusion and klonopin was resumed today with plans to attempt to wean off the versed. He continues on luvox, and seroquel remains discontinued. Per RN patients sister was at the bedside and states that patient does not have a safe home environment with his mother and social work was cons ulted. Chest xray today showing basilar atelectasis versus pneumonia, difficult to exclude small effusions. Continues on IV Zosyn, IV steroids decreased to BID today. Patient was also started on IV lasix and fluids discontinued today by pulmonary team. He continues on IV propofol and IV cleviprex. Continues on parenteral feedings. Has not had a BM yet received a dose of lactulose yesterday, will receive another dose today no BM since the . Abdomen is soft and nontender and he has normoactive bowel sounds. His eyes are improving and look better today again, redness is resolving and there is less crusting noted today. Labs today showing WBC 8.6, platelet count 205, neutrophils 7.9. Repeat ABG's today showing pCO2 51, HCO3 33, total CO2 35, O2 saturation 97.3. Sodium 142, potassium 4.3, BUN 35, creat 0.51, AST 12 ALT 7, alk phos 65, blood glucose in the 140s. 07/24/2021 Patient remains in the ICU, he is intubated on FiO2 of 50%. He was weaned off the versed gtt and resumed on oral klonopin. Continues on IV zosyn, IV solu- medrol, IV lasix. He is receiving IV cleviprex and IV propofol. Also receiving IV ativan push for breakthrough agitation. He is awake today, his eyes are openi ng, he was trying to sit up. His weight is up today and lasix was increased to every 8 hours, fluids remain at KVO. Repeat chest xray today showing bibasilar effusions and associated atelectasis vs. pneumonia or edema. Correlate for congestive heart failure. Procalcitonin follow up yesterday 0.04. He is bradycardic today heart rate in the 50's, blood pressure 124/68, afebrile, 95% oxygenation. Echocardiogram has been ordered. Continues on enteral nutrition, he is at goal. Blood sugars in the 130-160 range, and is receiving novolog for coverage. If patient continues with breakthrough agitation can resume seroquel at HS. 07/25/2021 Patient is seen in follow-up continues to be in the ICU on sedation and mechanical ventilation with an FiO2 of 50% and PEEP is 5. Sedation holidays and process to assess weaning parameters along with mentation. Pulmonary floor layer along with psychiatry following closely. Patient is also continued on IV Lasix and will continue and monitor intake and output closely. Klonopin has been resumed and will continue for now. Psychiatry also following him recommend continuing with current medication regimen and appreciate input and recommendations. Patient continues with anterior nutrition and will continue. We'll have physical therapy evaluate the patient. Patient also continues on IV Zosyn empirically with the possibility of aspiration pneumonia. Recommend repeat labs and follow-up chest x-ray. 07/26/2021 Patient is seen in follow-up this morning continues to be in the ICU and recently extubated and continued on BiPAP. Patient does have a sitter at the bedside as patient continues to attempt to remove the BiPAP mask. White blood count jumped from 6.5-22.6 and hemoglobin is stable at 16.9, sodium is 142 and, potassium is 3.2 and will replace per protocol, pro-calcitonin 0.20 and urinalysis was sent and will await cultures. Sputum culture finalized with normal respiratory radha and no staph aureus or Pseudomonas noted. Patient will continue on IV Zosyn for now and await cultures. Patient also continues on IV steroids along with breathing inhalational treatments with pulmonary following closely. Patient requiring some Precedex and some oral psychiatric medications have been resumed. Chest x-ray shows suspect some improvement in aeration with lung volume as compared to prior exam. BiPAP is 50% FiO2 with PEEP of 5. Archie haywood will need physical therapy for evaluation and will also consult social work and appreciate input and recommendations from psychiatry. Patient is afebrile. Patient denying chest pain. 07/27/2021 Patient is in the MICU with multiple medical consultations following and is currently sitting up in the chair and has 02 via NC at 15 liters HF today and tolerating. Patient has not required bipap. Patient is up and eating and tolerating and taking medications. Psychiatry following along with social work as there is a court hearing early next week for guardian. Patient is weak and needs PT/OT daily. Patient is afebrile, denies worsening shortness of breath, or chest pains. Patient more alert and in better spirits today. Sitter at the bedside. 07/28/2021 Patient is in the ICU and pulmonary following closely. Weaning FI02 as tolerated. Currently 10LHF and titrating down to 8L HF at 95%. Chest xray ordered and patient tolerating NC. Sitter at the bedside. Patient also to continue IV zosyn and IV steroids being transitioned to oral prednisone. Recommend follow up chest xray and continued breathing inhalational treatments. Tolerating oral diet. No chest pain or palpitations noted. Afebrile. 07/29/2021 Patient continues in the ICU and currently down to 6L HF via NC with pulmonary following. Patient transitioned to oral prednisone and will continue IV zosyn for now. Patient is tolerating diet and is cooperative. Sitter at the bedside and psychiatry following as well. Social work following for possible ecf and there is a court hearing scheduled for this week. Potassium is 3.0 today and will replace per protocol. Maintained on oral lasix. 07/30/2021 Patient continues to be in the ICU with multiple medical consultations following. Patient is now maintained on 5 L high flow and on exam found the patient with his oxygen off and really encouraged the patient to continue using oxygen and discuss with nursing staff about weaning as tolerated. Patient is 98% on 5 L with pulmonary following. Labs within normal limits today and patient is afebrile. Patient continues on IV Zosyn and cultures have been negative. Patient also continues on oral prednisone and recommend continued breathing treatments. Patient requesting if he could go home although will need to discuss with psychiatry as patient came in initially with suicidal ideations. Possible ECF as patient is continued with weakness. Patient is afebrile and denies any chest pain or worsening shortness of breath. Patient is tolerating diet. 07/31/2021 Patient is seen today on a med-surg unit and is continued on 2L via NC with pulmonary following. Psychiatry following and patient does not meet criteria for inpatient psych. Patient has a legal guardian and working with social for possible ecf. Patient maintained on IV antibiotics and is afebrile. Patient denies chest pain or shortness of breath. Patient is tolerating diet. Patient is extremely anxious and asking about being discharged home. PT following and working with patient daily recommend JOSE ANGEL. 08/01/2021 Patient continues on 2L via NC and being followed by pulmonary. Patient has guardian and working on possible ECF and per social work are working on somewhere local if possible. Patient has received adequate antibiotics on IV zosyn and being discontinued. Patient is afebrile. Patient having some generalized pain and continues to request to go home. Patient is afebrile. Patient denies any chest pain or worsening shortness of breath. Review of systems: Constitutional: No reports of fatigue, fever, or chills Cardiovascular: No reports of chest pain or palpitations Respiratory: No reports of worsening shortness of breath or cough GI: No reports of nausea, vomiting, or diarrhea : No reports of dysuria or retention Neurovascular: No reports of weakness or numbness Active Medications Acetaminophen (Acetaminophen Tab 325 Mg Tab) 650 mg PO Q6HR PRN PRN Reason: Fever and/ or Mild Pain Hydrocodone Bitart/Acetaminophen (Hydrocodone/Apap 5-325mg 1 Each Tab) 1 each PO Q6HR PRN PRN Reason: Pain Albuterol/Ipratropium (Ipratropium-Albuterol 3 Ml Neb) 3 ml INHALATION RT-Q2H PRN PRN Reason: Shortness Of Breath Or Wheezing Last Admin: 07/24/21 23:26 Dose: 3 ml Albuterol/Ipratropium (Ipratropium-Albuterol 3 Ml Neb) 3 ml INHALATION RT-QID [facility] Last Admin: 08/01/21 21:50 Dose: 3 ml Atorvastatin Calcium (Atorvastatin 20 Mg Tab) 20 mg PO [facility] Last Admin: 08/01/21 19:39 Dose: 20 mg Budesonide/Formoterol Fumarate (Symbicort 160-4.5 Mcg Inhaler) 2 puff INHALATION RT-BID [facility] Last Admin: 08/01/21 21:50 Dose: 2 puff Clonazepam (Clonazepam 0.5 Mg Tab) 0.5 mg PO TID PRN PRN Reason: Anxiety Last Admin: 08/01/21 18:25 Dose: 0.5 mg Enoxaparin Sodium (Enoxaparin 40 Mg/0.4 Ml Syringe) 40 mg SQ DAILY [facility] Last Admin: 08/01/21 08:31 Dose: 40 mg Fluvoxamine Maleate (Fluvoxamine 50 Mg Tab) 50 mg PO DAILY [facility] Last Admin: 08/01/21 08:32 Dose: 50 mg Fluvoxamine Maleate (Fluvoxamine 50 Mg Tab) 100 mg PO [facility] Last Admin: 08/01/21 19:38 Dose: 100 mg Furosemide (Furosemide 40 Mg Tab) 40 mg PO DAILY [facility] Last Admin: 08/01/21 08:29 Dose: 40 mg Insulin Aspart (Insulin Aspart (Novolog) 100 Unit/Ml Vial) 0 unit SQ ACHS [facility]; Protocol Last Admin: 08/01/21 20:36 Dose: 4 unit Miscellaneous Information (Phosphorus Replacement Protoco 1 Each [facility] 1 each MISCELLANE DAILY PRN; Protocol PRN Reason: Per Protocol Miscellaneous Information (Potassium Replacement Protocol 1 Each [facility] 1 each MISCELLANE DAILY PRN; Protocol PRN Reason: Per Protocol Miscellaneous Information (Potassium Replacement Protocol 1 Each [facility] 1 each MISCELLANE DAILY PRN; Protocol PRN Reason: Per Protocol Nicotine (Nicotine 21mg/24hr Patch) 1 patch TRANSDERM DAILY [facility] Last Admin: 08/01/21 08:27 Dose: 1 patch Pantoprazole Sodium (Pantoprazole 40 Mg/10 Ml Vial) 40 mg IVP DAILY [facility] Last Admin: 08/01/21 08:26 Dose: 40 mg Prednisone (Prednisone 10 Mg Tab) 30 mg PO DAILY [facility] Stop: 08/04/21 09:01 Last Admin: 08/01/21 08:29 Dose: 30 mg Prednisone (Prednisone 20 Mg Tab) 20 mg PO DAILY [facility] Stop: 08/09/21 09:01 Prednisone (Prednisone 10 Mg Tab) 10 mg PO DAILY [facility] Stop: 08/13/21 09:01 Prednisone (Prednisone 5 Mg Tab) 5 mg PO DAILY [facility] Stop: 08/17/21 09:01 Quetiapine Fumarate (Quetiapine 25 Mg Tab) 25 mg PO HS [facility] Last Admin: 08/01/21 19:38 Dose: 25 mg PHYSICAL EXAMINATION: GENERAL: The patient is recently extubated on 07/25 and is now on 2 liter via NC and sitting up in the chair . Obese. HEENT: Pupils are 2+ in size. EOMI. No conjunctival pallor. Normocephalic, atraumatic. No pharyngeal erythema. No thyromegaly. Poor dentition. He does wear top dentures which are currently not in place. CARDIOVASCULAR: S1 and S2 muffled PULMONARY: Chest is diminished. Some scattered rhonchi noted ABDOMEN: Soft, nontender, nondistended, normoactive bowel sounds. No palpable organomegaly. MUSCULOSKELETAL: No joint swelling or deformity. EXTREMITIES: No cyanosis, clubbing, or pedal edema. NEUROLOGICAL: cooperative and calm and answering questions SKIN: Generalized rash Assessment: Acute hypoxic and hypercarbic respiratory failure secondary to COPD exacerbation recently extubated on 07-25 now on 2L via NC Rule out aspiration pneumonia Fluid overload, improved hypokalemia, improved Conjunctivitis with eye crusting, improved History of asthma, COPD History of hypertension Diabetes Mellitus type 2 with hypoglycemia on admission, improved Proteinuria Hematuria, resolved, possibly due to IDC insertion History Bipolar / ADD / Depression with suicidal ideations on admission was initially on mental health unit on court ordered evaluation. History of spina bifida History of spinal stenosis Obesity Chronic daily nicotine use GI Prophylaxis DVT Prophylaxis Full Code Plan: Patient is being monitored closely and recently moved out of the ICU today and continues on 2L via NC and weaning as tolerated. Encourage IS use at least 10 times per hour. Recommend continuing current medications and breathing treatments. Recommend PT/OT therapy daily. Social work is currently working with guardian about ECF versus prison. Patient is significantly weak and would benefit from ECF for strength and mobility. Due to multiple complex medical issues, prognosis is guarded. Will await discussion with social work and guardian. The impression and plan of care has been dictated by Charmaine Minor, Nurse Practitioner as directed. Dr. Jonny MD I have performed a history and examination and MDM of this patient, discussed the same with the dictator, and agree with the dictator's assessment and plan as written ,documented as a scribe. Based on total visit time, I have performed more than 50% of the visit. Objective - Vital Signs Vital signs: Vital Signs Temp 97.5 F L 08/01/21 05:00 Pulse 67 08/01/21 08:35 Resp 18 08/01/21 05:00 BP 134/82 08/01/21 05:00 Pulse Ox 90 L 08/01/21 08:21 FiO2 50 07/27/21 08:34 Intake & Output 07/31/21 08/01/21 08/01/21 18:59 06:59 18:59 Intake Total 300 Output Total 1000 Balance -700 Weight 95 kg 91 kg Intake: IV 100 Piperacillin-Tazobactam 3 100 .375 gm In Sodium Chloride 0.9% 100 ml @ 25 mls/hr IVPB Q8HR [facility] Rx# :[id number] Intake, IV Titration 200 Amount Piperacillin-Tazobactam 3 200 .375 gm In Sodium Chloride 0.9% 100 ml @ 25 mls/hr IVPB Q8HR [facility]INCE Rx# :[id number] Output: Urine 1000 Other: Voiding Method Urinal Urinal Urinal # Voids 1 4 # Bowel Movements 1 ABP, PAP, CO, CI - Last Documented Arterial Blood Pressure 135/66 - Labs CBC & Chem 7: 08/01/21 12:03 08/01/21 12:03 Labs: Abnormal Lab Results - Last 24 Hours (Table) 07/31/21 07/31/21 07/31/21 Range/Units 11:02 16:48 19:43 POC Glucose (mg/dL) 248 H 173 H 197 H (75-99) mg/dL 08/01/21 Range/Units 06:51 POC Glucose (mg/dL) 117 H (75-99) mg/dL
[2021-08-02 07:03] LABS: Glucose,Whole Blood 182 mg/dL (75-99)
[2021-08-02] MEDS: IPRATROPIUM-ALBUTEROL 3 ML NEB INHALATION SCH ×4 (07:36→19:00)
[2021-08-02] MEDS: SYMBICORT 160-4.5 MCG INHALER INHALATION SCH ×2 (07:36→19:00)
[2021-08-02] MEDS: NICOTINE 21MG/24HR PATCH TRANSDERM SCH (08:06)
[2021-08-02] MEDS: ENOXAPARIN 40 MG/0.4 ML SYRINGE SQ SCH (08:06)
[2021-08-02] MEDS: PANTOPRAZOLE 40 MG/10 ML VIAL IVP SCH (08:06)
[2021-08-02] MEDS: predniSONE 10 MG TAB PO SCH (08:06)
[2021-08-02] MEDS: FUROSEMIDE 40 MG TAB PO SCH (08:06)
[2021-08-02] MEDS: INSULIN ASPART (NovoLOG) 100 UNIT/ML VIAL SQ SCH ×4 (08:06→21:05)
[2021-08-02 11:13] LABS: Glucose,Whole Blood 201 mg/dL (75-99)
--- NOTE | 2021-08-02 11:17 | P.PN ---
Subjective Progress Note Date: 08/02/21 Principal diagnosis: Altered mental status, pneumonia On 08/01/2021 patient seen in follow-up on medical surgical floor, he is awake and alert, oriented 3, breathing comfortably, he is currently on 2 L of oxygen pulse ox is 96%, afebrile, hemodynamically stable, he has had no fever or chills, vitals have been stable, no worsening cough or congestion. No altered mentation. Has not required BiPAP support, his oxygenation has improved and his oxygen demand has significantly improved and is currently down to 2 L from high flow oxygen a few days ago. No confusion or agitation. he is cooperative, and pleasant, he remains on Zosyn. His IV steroids have been transitioned to oral prednisone. Today's labs have been reviewed showing white blood cell count of 10.8, hemoglobin of 16.6, sodium is 135, potassium 3.5, chloride is 92, CO2 36, BUN is 10, creatinine 0.37, patient remains on maintenance dose of oral Lasix 40 mg daily, he has completed 11 days of zosyn On 08/02/2021 patient seen in follow-up on medical surgical floor. He is awake and alert, in no acute distress, no worsening dyspnea, cough or congestion. Vital signs have been stable, patient is on 2 L of oxygen pulse ox is 92%. No fever or chills. Antibiotics have been discontinued, patient completed 11 day course of Zosyn. His blood and sputum cultures have shown no growth. Leukocytosis has improved, his last set of blood work from yesterday showed white blood cell count of 10.8, hemoglobin of 16.6, sodium is 135, potassium 3.5, chloride is 92, CO2 36, BUN 10, creatinine 0.37. Tolerating oral intake, no nausea vomiting diarrhea, no abdominal pain. Patient was cleared for discharge home yesterday however she will require subacute rehab after discharge and currently subacute rehab placement arrangement is in progress Objective - Vital Signs Vital signs: Vital Signs Temp 97.7 F 08/02/21 05:00 Pulse 64 08/02/21 11:01 Resp 18 08/02/21 05:00 BP 142/62 08/02/21 05:00 Pulse Ox 92 L 08/02/21 07:38 FiO2 50 07/27/21 08:34 Intake & Output 06/03/2408/02/21 08/02/21 18:59 06:59 18:59 Output Total 1300 550 Balance -1300 -550 Weight 90 kg Output: Urine 1300 550 Other: Voiding Method Urinal Urinal Urinal # Voids 1 4 ABP, PAP, CO, CI - Last Documented Arterial Blood Pressure 135/66 - Exam GENERAL EXAM: Alert, very pleasant, 45-year-old white male, sitting up in the recliner, breathing comfortably, 2 L of oxygen and pulse ox of 96% comfortable in no apparent distress. HEAD: Normocephalic/atraumatic. EYES: Normal reaction of pupils, equal size. Conjunctiva pink, sclera white. NOSE: Clear with pink turbinates. THROAT: No erythema or exudates. NECK: No masses, no JVD, no thyroid enlargement, no adenopathy. CHEST: No chest wall deformity. Symmetrical expansion. LUNGS: Equal air entry with no crackles, wheeze, rhonchi or dullness. CVS: Regular rate and rhythm, normal S1 and S2, no gallops, no murmurs, no rubs ABDOMEN: Soft, nontender. No hepatosplenomegaly, normal bowel sounds, no guarding or rigidity. EXTREMITIES: No clubbing, no edema, no cyanosis, 2+ pulses and upper and lower extremities. MUSCULOSKELETAL: Muscle strength and tone normal. SPINE: No scoliosis or deformity SKIN: No rashes CENTRAL NERVOUS SYSTEM: Alert and oriented -3. No focal deficits, tone is normal in all 4 extremities. PSYCHIATRIC: Alert and oriented -3. Appropriate affect. Intact judgment and insight. - Labs CBC & Chem 7: 08/01/21 12:03 08/01/21 12:03 Labs: Abnormal Lab Results - Last 24 Hours (Table) 08/01/21 08/01/21 08/01/21 Range/Units 12:03 12:03 17:11 WBC 10.8 H (3.8-10.6) k/uL RBC 6.44 H (4.30-5.90) m/uL Hct 55.0 H (39.0-53.0) % MCHC 30.2 L (31.0-37.0) g/dL RDW 16.4 H (11.5-15.5) % Neutrophils # 9.7 H (1.3-7.7) k/uL Lymphocytes # 0.6 L (1.0-4.8) k/uL Sodium 135 L (137-145) mmol/L Chloride 92 L (98-107) mmol/L Carbon Dioxide 36 H (22-30) mmol/L Creatinine 0.37 L (0.66-1.25) mg/dL Glucose 356 H (74-99) mg/dL POC Glucose (mg/dL) 269 H (75-99) mg/dL 08/01/21 08/02/21 Range/Units 20:07 07:01 WBC (3.8-10.6) k/uL RBC (4.30-5.90) m/uL Hct (39.0-53.0) % MCHC (31.0-37.0) g/dL RDW (11.5-15.5) % Neutrophils # (1.3-7.7) k/uL Lymphocytes # (1.0-4.8) k/uL Sodium (137-145) mmol/L Chloride (98-107) mmol/L Carbon Dioxide (22-30) mmol/L Creatinine (0.66-1.25) mg/dL Glucose (74-99) mg/dL POC Glucose (mg/dL) 270 H 182 H (75-99) mg/dL Assessment and Plan Plan: Assessment: #1. Acute exacerbation of COPD, requiring intubation on July 20, and successful wean and extubation on 07/25/2021 #2. Acute hypoxic and hypercapnic respiratory failure with metabolic encephalopathy, improved #3. Depression/bipolar disorder with suicidal ideation #4. Chronic and ongoing tobacco dependence #5. History of diabetes mellitus #6. Hypertension #7. Spina bifida #8. Pancreatitis #9. Anxiety Plan: Continue breathing treatments Patient has completed a course of antibiotics Clinically stable and continues to improve Encourage deep breathing and coughing Encourage ambulation Patient was recommended subacute rehab placement after discharge Currently arrangements are in progress Outpatient follow-up with Dr. Crain in 7-10 days I have personally seen and examined the patient, performed the documentation and the assessment and plan as written. Number of minutes spent on the visit: [10] Time with Patient: Less than 30
[2021-08-02] MEDS: clonazePAM 0.5 MG TAB PO PRN (11:25)
[2021-08-02] MEDS ORDERED: clonazePAM 0.5 MG TAB PO STA (15:17)
[2021-08-02 16:40] LABS: Glucose,Whole Blood 258 mg/dL (75-99)
[2021-08-02] MEDS: clonazePAM 1 MG TAB PO SCH ×2 (17:37→21:02)
[2021-08-02 20:15] LABS: Glucose,Whole Blood 257 mg/dL (75-99)
[2021-08-02 20:46] VITALS: RESP 20
[2021-08-02] MEDS: QUEtiapine 25 MG TAB PO SCH (21:02)
[2021-08-02] MEDS: ATORVASTATIN 20 MG TAB PO SCH (21:02)
--- NOTE | 2021-08-02 23:53 | P.PN ---
Subjective Progress Note Date: 08/02/21 This is a 45-year-old male who [facility] was [facility] where he was admitted as a court ordered petition for medication adjustments. Patient has a past medical history significant for bipolar type I, ADD, asthma, COPD, diabetes mellitus, hypertension, gastroesophageal reflux disease, spinal bifida with spinal stenosis, patient is a daily smoker since the age of 11, currently smoking 2 packs per day. He denies any alcohol use, denies illicit drug use. States he lives with his mother, uses a wheel chair for transportation. He reportedly has been unable to care for his basic needs, and presents with poor hygiene. He is currently pending psychiatric evaluation. He was transferred to the medical floor as he was found to have significant shortness of breath making it difficult to carry on a conversation. He reports this has been going on at home for 2 weeks now and was evaluated at his PCP's office. He reports 2-3 days ago the shortness of breath worsened and he has clear nasal drainage and congestion. He denies fever or chills. Denies chest pain. Denies nausea, vomiting, diarrhea. Initial diagnostics for admission to [facility] include EKG showing sinus rhythm with a heart rate of 72, there is no ST or T wave abnormalities noted. Lab on admission showing white count 12.1, hemoglobin 17.7, hematocrit is elevated at 60.9. Chemistry panel showing sodium 138, potassium 4.8, CO2 34, BUN 17, creatinine 0.63, glucose of 105. Urinalysis positive for 1+ protein, 4+ glucose, 1+ ketone with occasional mucus. His urine drug toxicology is positive for tricyclic antidepressants, benzodiazepines. Covid is not detected. Chest xray showing new right basilar acute infiltrate and or atelectasis. He was found to be hypoxic on room air in the 90s, reports to not wearing any home oxygen. He required 4-6 L of oxygen to stabilize and was transferred to the medical floor where he was re-evaluated. He was started on IV solu-medrol, and duonebs. Pulmonary services were consulted for evaluation. Patient appears to have worsening hypoxia when sleeping, possibility of an obstructive sleep apnea. He is lethargic today as well, arrousable to voice, stopped the klonopin and decreased seroquel. Final med reqs from psychiatry. D-Dimer negative, procalcitonin 0.08. Influenza A and B also not detected. Current vital signs include heart rate of 90, blood pressure 133/79, 96% on 4L nasal cannula. 07/20/2021 Patient evaluated today on BiPAP. Yesterday afternoon he was quite lethargic, seroquel was decreased down to 25 mg PO HS and klonopin was discontinued for now. Any additional recommendations reguarding his psychiatric medications from psych consultation as patient was on a court order petition for mental health treatment. ABG's were completed yesterday showing pH of 7.25, PCO2 of 92, PO2 of 71, HCO3 of 40, total CO2 43, ox saturation 93.6. He was placed on a 40% fio2 BiPAP. He continues with 1:1 Sitter at the bedside as well. Labs today showing a white count of 15.20, hgb 16.1, hematocrit has improved slightly to 57.4. Sodium 142, potassium 5.4, BUN 19, creat 0.5. Blood glucose is in the 100-90s. We are continuing to hold his home insulin, metformin and actos, and covering with sliding scale as needed. He continues on jardiance. Vital signs today showing temp of 98.1, heart rate 82, blood pressure 128/77, oxygen saturation of 94% on BiPAP. Blood cultures are showing negative. He was started on empiric antibiotic coverage with zosyn today by pulmonary team, he continues also IV steroids which were increased to every 8 hours today, as well as duonebs and pulmicort. Patient was evaluated by pulmonary team today and is being transferred to the ICU this morning for closer monitoring regarding his respiratory status. He is answering questions appropriately, however states he was at his moms house. He is more alert, and moving all extremities with equal strength. He also continues with watery drainage from his eyes. He is complaining of back pain today. 07/21/2021 Patient is evaluated today in the ICU, he was intubated yesterday at 1730, his PCO2 has come down to 40, current fi02 65%. White count today 10.2, sodium 140, potassium 2.8, BUN 35, creat 0.54, blood glucose in the 160s. Critical phosphorous yesterday at 0.7 was replaced and now 2.1, and will receive additional IV phosphorous today. AST 15, albumin 3.3. Patient had hematuria and repeat urinalysis was done showing 1+ protein, 4+glucose, 4+ketones, large blood, 1+bili, >182 RBC. Lovenox was discontinued. Platelet count is stable at 229. He is receiving sedation with propofol. He is also receiving IV ativan and had required haldol for acute agitation. He will be started on a versed infusion for agitation. On IV zosyn, IV solu-medrol, duonebs. He has been started on tube feedings. Continues with 1:1 sitter and followed by psychiatry. He is being followed closely by pulmonary speech and language clinician services. 07/22/2021 Patient evaluated today in the ICU on 50% FiO2, he continues on propofol clevip asad and versed infusion. No BM since the although he has not had much oral intake. Will give a one time dose of lactulose today, and he continues on tube feedings at rate of 20 pending dietary evaluation tomorrow as there is no goal documented. Labs today showing white count 7.4, platelets 226, hgb 16.0, hct 53.6. Sodium 141, potassium 4.1, BUN 36, creat 0.46, blood glucose 131. AST 12, albumin 3.0. BNP 886. Chest xray today showing cardiomegaly, persistent bilateral acute infiltrates and or atelectasis and likely small tiny bilateral pleural effusions. Stable from one day earlier. He has remained afebrile, heart rate 60's, blood pressure 136/57, 95% on room air. Sputum culture and blood culture pending. He is on IV zosyn. Urine output is about 27 mls per hour in the last 24 hours, urine is brown in color, although creat is low normal. He continues on IV fluids at 100 mls per hour. 07/23/2021 Patient evaluated today continues in the ICU, intubated with fi02 of 50%. He continues on Versed infusion and klonopin was resumed today with plans to attempt to wean off the versed. He continues on luvox, and seroquel remains discontinued. Per RN patients sister was at the bedside and states that patient does not have a safe home environment with his mother and social work was cons ulted. Chest xray today showing basilar atelectasis versus pneumonia, difficult to exclude small effusions. Continues on IV Zosyn, IV steroids decreased to BID today. Patient was also started on IV lasix and fluids discontinued today by pulmonary team. He continues on IV propofol and IV cleviprex. Continues on parenteral feedings. Has not had a BM yet received a dose of lactulose yesterday, will receive another dose today no BM since the . Abdomen is soft and nontender and he has normoactive bowel sounds. His eyes are improving and look better today again, redness is resolving and there is less crusting noted today. Labs today showing WBC 8.6, platelet count 205, neutrophils 7.9. Repeat ABG's today showing pCO2 51, HCO3 33, total CO2 35, O2 saturation 97.3. Sodium 142, potassium 4.3, BUN 35, creat 0.51, AST 12 ALT 7, alk phos 65, blood glucose in the 140s. 07/24/2021 Patient remains in the ICU, he is intubated on FiO2 of 50%. He was weaned off the versed gtt and resumed on oral klonopin. Continues on IV zosyn, IV solu- medrol, IV lasix. He is receiving IV cleviprex and IV propofol. Also receiving IV ativan push for breakthrough agitation. He is awake today, his eyes are openi ng, he was trying to sit up. His weight is up today and lasix was increased to every 8 hours, fluids remain at KVO. Repeat chest xray today showing bibasilar effusions and associated atelectasis vs. pneumonia or edema. Correlate for congestive heart failure. Procalcitonin follow up yesterday 0.04. He is bradycardic today heart rate in the 50's, blood pressure 124/68, afebrile, 95% oxygenation. Echocardiogram has been ordered. Continues on enteral nutrition, he is at goal. Blood sugars in the 130-160 range, and is receiving novolog for coverage. If patient continues with breakthrough agitation can resume seroquel at HS. 07/25/2021 Patient is seen in follow-up continues to be in the ICU on sedation and mechanical ventilation with an FiO2 of 50% and PEEP is 5. Sedation holidays and process to assess weaning parameters along with mentation. Pulmonary speech and language clinician along with psychiatry following closely. Patient is also continued on IV Lasix and will continue and monitor intake and output closely. Klonopin has been resumed and will continue for now. Psychiatry also following him recommend continuing with current medication regimen and appreciate input and recommendations. Patient continues with anterior nutrition and will continue. We'll have physical therapy evaluate the patient. Patient also continues on IV Zosyn empirically with the possibility of aspiration pneumonia. Recommend repeat labs and follow-up chest x-ray. 07/26/2021 Patient is seen in follow-up this morning continues to be in the ICU and recently extubated and continued on BiPAP. Patient does have a sitter at the bedside as patient continues to attempt to remove the BiPAP mask. White blood count jumped from 6.5-22.6 and hemoglobin is stable at 16.9, sodium is 142 and, potassium is 3.2 and will replace per protocol, pro-calcitonin 0.20 and urinalysis was sent and will await cultures. Sputum culture finalized with normal respiratory radha and no staph aureus or Pseudomonas noted. Patient will continue on IV Zosyn for now and await cultures. Patient also continues on IV steroids along with breathing inhalational treatments with pulmonary following closely. Patient requiring some Precedex and some oral psychiatric medications have been resumed. Chest x-ray shows suspect some improvement in aeration with lung volume as compared to prior exam. BiPAP is 50% FiO2 with PEEP of 5. Archie haywood will need physical therapy for evaluation and will also consult social work and appreciate input and recommendations from psychiatry. Patient is afebrile. Patient denying chest pain. 07/27/2021 Patient is in the MICU with multiple medical consultations following and is currently sitting up in the chair and has 02 via NC at 15 liters HF today and tolerating. Patient has not required bipap. Patient is up and eating and tolerating and taking medications. Psychiatry following along with social work as there is a court hearing early next week for guardian. Patient is weak and needs PT/OT daily. Patient is afebrile, denies worsening shortness of breath, or chest pains. Patient more alert and in better spirits today. Sitter at the bedside. 07/28/2021 Patient is in the ICU and pulmonary following closely. Weaning FI02 as tolerated. Currently 10LHF and titrating down to 8L HF at 95%. Chest xray ordered and patient tolerating NC. Sitter at the bedside. Patient also to continue IV zosyn and IV steroids being transitioned to oral prednisone. Recommend follow up chest xray and continued breathing inhalational treatments. Tolerating oral diet. No chest pain or palpitations noted. Afebrile. 07/29/2021 Patient continues in the ICU and currently down to 6L HF via NC with pulmonary following. Patient transitioned to oral prednisone and will continue IV zosyn for now. Patient is tolerating diet and is cooperative. Sitter at the bedside and psychiatry following as well. Social work following for possible ecf and there is a court hearing scheduled for this week. Potassium is 3.0 today and will replace per protocol. Maintained on oral lasix. 07/30/2021 Patient continues to be in the ICU with multiple medical consultations following. Patient is now maintained on 5 L high flow and on exam found the patient with his oxygen off and really encouraged the patient to continue using oxygen and discuss with nursing staff about weaning as tolerated. Patient is 98% on 5 L with pulmonary following. Labs within normal limits today and patient is afebrile. Patient continues on IV Zosyn and cultures have been negative. Patient also continues on oral prednisone and recommend continued breathing treatments. Patient requesting if he could go home although will need to discuss with psychiatry as patient came in initially with suicidal ideations. Possible ECF as patient is continued with weakness. Patient is afebrile and denies any chest pain or worsening shortness of breath. Patient is tolerating diet. 07/31/2021 Patient is seen today on a med-surg unit and is continued on 2L via NC with pulmonary following. Psychiatry following and patient does not meet criteria for inpatient psych. Patient has a legal guardian and working with social for possible ecf. Patient maintained on IV antibiotics and is afebrile. Patient denies chest pain or shortness of breath. Patient is tolerating diet. Patient is extremely anxious and asking about being discharged home. PT following and working with patient daily recommend JOSE ANGEL. 08/01/2021 Patient continues on 2L via NC and being followed by pulmonary. Patient has guardian and working on possible ECF and per social work are working on somewhere local if possible. Patient has received adequate antibiotics on IV zosyn and being discontinued. Patient is afebrile. Patient having some generalized pain and continues to request to go home. Patient is afebrile. Patient denies any chest pain or worsening shortness of breath. 08/02/2021 Patient is seen in follow up and continued on 2L via FL. Patient denies any shortness of breath. Patient is extremely anxious and continues to ask when he will be discharged. Social work following and working with guardian and will have to look at other [facility] Patient continues with weakness. Patient is afebrile and tolerating diet. Patient continued on Klonopin and will continue. Patient denies chest pain. Review of systems: Constitutional: No reports of fatigue, fever, or chills Cardiovascular: No reports of chest pain or palpitations Respiratory: No reports of worsening shortness of breath or cough GI: No reports of nausea, vomiting, or diarrhea : No reports of dysuria or retention Neurovascular: No reports of weakness or numbness Active Medications Acetaminophen (Acetaminophen Tab 325 Mg Tab) 650 mg PO Q6HR PRN PRN Reason: Fever and/ or Mild Pain Hydrocodone Bitart/Acetaminophen (Hydrocodone/Apap 5-325mg 1 Each Tab) 1 each PO Q6HR PRN PRN Reason: Pain Albuterol/Ipratropium (Ipratropium-Albuterol 3 Ml Neb) 3 ml INHALATION RT-Q2H PRN PRN Reason: Shortness Of Breath Or Wheezing Last Admin: 07/24/21 23:26 Dose: 3 ml Albuterol/Ipratropium (Ipratropium-Albuterol 3 Ml Neb) 3 ml INHALATION RT-QID [facility] Last Admin: 08/02/21 19:00 Dose: 3 ml Atorvastatin Calcium (Atorvastatin 20 Mg Tab) 20 mg PO HS [facility] Last Admin: 08/02/21 21:02 Dose: 20 mg Budesonide/Formoterol Fumarate (Symbicort 160-4.5 Mcg Inhaler) 2 puff INHALATION RT-BID [facility] Last Admin: 08/02/21 19:00 Dose: 2 puff Clonazepam (Clonazepam 1 Mg Tab) 1 mg PO QID [facility] Last Admin: 08/02/21 21:02 Dose: 1 mg Enoxaparin Sodium (Enoxaparin 40 Mg/0.4 Ml Syringe) 40 mg SQ DAILY [facility] Last Admin: 08/02/21 08:06 Dose: 40 mg Fluvoxamine Maleate (Fluvoxamine 50 Mg Tab) 50 mg PO DAILY [facility] Last Admin: 08/02/21 08:06 Dose: 50 mg Fluvoxamine Maleate (Fluvoxamine 50 Mg Tab) 100 mg PO HS [facility] Last Admin: 08/02/21 21:02 Dose: 100 mg Furosemide (Furosemide 40 Mg Tab) 40 mg PO DAILY [facility] Last Admin: 08/02/21 08:06 Dose: 40 mg Insulin Aspart (Insulin Aspart (Novolog) 100 Unit/Ml Vial) 0 unit SQ ACHS [facility]; Protocol Last Admin: 08/02/21 21:05 Dose: 4 unit Miscellaneous Information (Phosphorus Replacement Protoco 1 Each Misc) 1 each MISCELLANE DAILY PRN; Protocol PRN Reason: Per Protocol Miscellaneous Information (Potassium Replacement Protocol 1 Each Misc) 1 each MISCELLANE DAILY PRN; Protocol PRN Reason: Per Protocol Miscellaneous Information (Potassium Replacement Protocol 1 Each Misc) 1 each MISCELLANE DAILY PRN; Protocol PRN Reason: Per Protocol Nicotine (Nicotine 21mg/24hr Patch) 1 patch TRANSDERM DAILY [facility] Last Admin: 08/02/21 08:06 Dose: 1 patch Pantoprazole Sodium (Pantoprazole 40 Mg/10 Ml Vial) 40 mg IVP DAILY [facility] Last Admin: 08/02/21 08:06 Dose: 40 mg Prednisone (Prednisone 10 Mg Tab) 30 mg PO DAILY [facility] Stop: 08/04/21 09:01 Last Admin: 08/02/21 08:06 Dose: 30 mg Prednisone (Prednisone 20 Mg Tab) 20 mg PO DAILY [facility] Stop: 08/09/21 09:01 Prednisone (Prednisone 10 Mg Tab) 10 mg PO DAILY [facility] Stop: 08/13/21 09:01 Prednisone (Prednisone 5 Mg Tab) 5 mg PO DAILY [facility] Stop: 08/17/21 09:01 Quetiapine Fumarate (Quetiapine 25 Mg Tab) 25 mg PO HS [facility] Last Admin: 08/02/21 21:02 Dose: 25 mg PHYSICAL EXAMINATION: GENERAL: The patient is alert and oriented x 2, anxious, currently on 2 liter via NC and sitting up in the chair . Obese. HEENT: Pupils are 2+ in size. EOMI. No conjunctival pallor. Normocephalic, atraumatic. No pharyngeal erythema. No thyromegaly. Poor dentition. He does wear top dentures which are currently not in place. CARDIOVASCULAR: S1 and S2 muffled PULMONARY: Chest is diminished. Some scattered rhonchi noted ABDOMEN: Soft, nontender, nondistended, normoactive bowel sounds. No palpable organomegaly. MUSCULOSKELETAL: No joint swelling or deformity. EXTREMITIES: No cyanosis, clubbing, or pedal edema. NEUROLOGICAL: cooperative and answering questions, anxious SKIN: no lesions noted Assessment: Acute hypoxic and hypercarbic respiratory failure secondary to COPD exacerbation recently extubated on 07-25 now on 2L via NC Rule out aspiration pneumonia Fluid overload, improved hypokalemia, improved Conjunctivitis with eye crusting, improved History of asthma, COPD History of hypertension Diabetes Mellitus type 2 with hypoglycemia on admission, improved Proteinuria Hematuria, resolved, possibly due to IDC insertion History Bipolar / ADD / Depression with suicidal ideations on admission was initially on mental health unit on court ordered evaluation. History of spina bifida History of spinal stenosis Obesity Chronic daily nicotine use GI Prophylaxis DVT Prophylaxis Full Code Plan: Patient is being monitored closely and continues on 2L via NC and weaning as tolerated. Encourage IS use at least 10 times per hour. Recommend continuing current medications and breathing treatments. Recommend PT/OT therapy daily. Social work is currently working with guardian about ECF and accepting facilities. Patient is significantly weak and would benefit from ECF for strength and mobility. Due to multiple complex medical issues, prognosis is guarded. Will await discussion with social work and guardian. Possible discharge in 24 hours. The impression and plan of care has been dictated by Charmaine Minor, Nurse Practitioner as directed. Dr. Jonny MD I have performed a history and examination and MDM of this patient, discussed the same with the dictator, and agree with the dictator's assessment and plan as written ,documented as a scribe. Based on total visit time, I have performed more than 50% of the visit. Objective - Vital Signs Vital signs: Vital Signs Temp 97.7 F 08/02/21 05:00 Pulse 63 08/02/21 07:53 Resp 18 08/02/21 05:00 BP 142/62 08/02/21 05:00 Pulse Ox 92 L 08/02/21 07:38 FiO2 50 07/27/21 08:34 Intake & Output 08/01/21 08/02/21 08/02/21 18:59 06:59 18:59 Output Total 1300 550 Balance -1300 -550 Weight 90 kg Output: Urine 1300 550 Other: Voiding Method Urinal Urinal Urinal # Voids 1 4 ABP, PAP, CO, CI - Last Documented Arterial Blood Pressure 135/66 - Labs CBC & Chem 7: 08/01/21 12:03 08/01/21 12:03 Labs: Abnormal Lab Results - Last 24 Hours (Table) 08/01/21 08/01/21 08/01/21 Range/Units 11:08 12:03 12:03 WBC 10.8 H (3.8-10.6) k/uL RBC 6.44 H (4.30-5.90) m/uL Hct 55.0 H (39.0-53.0) % MCHC 30.2 L (31.0-37.0) g/dL RDW 16.4 H (11.5-15.5) % Neutrophils # 9.7 H (1.3-7.7) k/uL Lymphocytes # 0.6 L (1.0-4.8) k/uL Sodium 135 L (137-145) mmol/L Chloride 92 L (98-107) mmol/L Carbon Dioxide 36 H (22-30) mmol/L Creatinine 0.37 L (0.66-1.25) mg/dL Glucose 356 H (74-99) mg/dL POC Glucose (mg/dL) 274 H (75-99) mg/dL 08/01/21 08/01/21 08/02/21 Range/Units 17:11 20:07 07:01 WBC (3.8-10.6) k/uL RBC (4.30-5.90) m/uL Hct (39.0-53.0) % MCHC (31.0-37.0) g/dL RDW (11.5-15.5) % Neutrophils # (1.3-7.7) k/uL Lymphocytes # (1.0-4.8) k/uL Sodium (137-145) mmol/L Chloride (98-107) mmol/L Carbon Dioxide (22-30) mmol/L Creatinine (0.66-1.25) mg/dL Glucose (74-99) mg/dL POC Glucose (mg/dL) 269 H 270 H 182 H (75-99) mg/dL
[2021-08-03 05:14] VITALS: BP 142/81; TEMP 98.1
[2021-08-03 07:12] LABS: Glucose,Whole Blood 124 mg/dL (75-99)
[2021-08-03] MEDS: SYMBICORT 160-4.5 MCG INHALER INHALATION SCH (08:18)
[2021-08-03] MEDS: IPRATROPIUM-ALBUTEROL 3 ML NEB INHALATION SCH ×2 (08:18→11:43)
[2021-08-03] MEDS: ENOXAPARIN 40 MG/0.4 ML SYRINGE SQ SCH (08:47)
[2021-08-03] MEDS: INSULIN ASPART (NovoLOG) 100 UNIT/ML VIAL SQ SCH ×2 (08:47→12:38)
[2021-08-03] MEDS: predniSONE 10 MG TAB PO SCH (08:48)
[2021-08-03] MEDS: FUROSEMIDE 40 MG TAB PO SCH (08:48)
[2021-08-03] MEDS: PANTOPRAZOLE 40 MG/10 ML VIAL IVP SCH (08:48)
[2021-08-03] MEDS: clonazePAM 1 MG TAB PO SCH ×2 (08:48→12:38)
[2021-08-03] MEDS: NICOTINE 21MG/24HR PATCH TRANSDERM SCH (08:48)
--- NOTE | 2021-08-03 10:52 | P.DS ---
Providers Date of admission: 07/18/21 15:57 Expected date of discharge: 08/03/21 Attending physician: Jr Fuller Consults: 07/18/21 16:02 Consult Physician Routine Consulting Provider: Nieves Espinoza Consult Reason/Comments: respiratory failure, COPD exac Do you want consulting provider notified?: Yes 07/18/21 16:04 Consult Physician Routine Consulting Provider: Adrian Carmona Consult Reason/Comments: psychiatric evaluation Do you want consulting provider notified?: Yes Primary care physician: Anne Sosa Hospital Course: Final diagnosis Acute hypoxic and hypercarbic respiratory failure secondary to COPD exacerbation recently extubated on 07-25 now on 2L via NC Rule out aspiration pneumonia Fluid overload, improved hypokalemia, improved Conjunctivitis with eye crusting, improved History of asthma, COPD History of hypertension Diabetes Mellitus type 2 with hypoglycemia on admission, improved Proteinuria Hematuria, resolved, possibly due to IDC insertion History Bipolar / ADD / Depression with suicidal ideations on admission was initially on mental health unit on court ordered evaluation. History of spina bifida History of spinal stenosis Obesity Chronic daily nicotine use GI Prophylaxis DVT Prophylaxis Full Code Discharge disposition Patient is being discharged in a stable condition with guarded prognosis to [facility] in [facility] for continued PT/OT therapy. Patient will follow-up with Dr. Sosa in the outpatient setting upon discharge. Patient is to follow-up with pulmonary in the outpatient setting in 2-3 weeks. Patient to continue a prednisone taper on discharge along with 2 L via nasal cannula to manage his COPD and wean as tolerated. Total time taken is greater than 35 minutes. Hospital course This is a 45-year-old male who was recently admitted under court ordered per guardian for suicidal ideation initially and also found to have severe hypoxic respiratory failure secondary to COPD and was maintained briefly in the ICU with mechanical vent and transitioned to BiPAP. Pulmonary following patient was maintained on IV antibiotics in the form of Zosyn for quite some time for possible aspiration pneumonia and continued steroids and breathing treatments. Patient has improved and is currently maintained on 2 L via nasal cannula and strongly encouraged the patient to wean as tolerated and continue with breathing inhalational treatments and prednisone taper as written. Patient will follow with pulmonary outpatient. Encouraged continued smoking cessation. Currently no reports of chest pain, shortness of breath, or palpitations. Patient is afebrile. No reports of nausea or vomiting and patient is tolerating diet. Patient will be going to [facility] in [place] today. Guarded prognosis. On exam vital signs are stable. Cardio S1, S2 are muffled. Respiratory system shows diminished breath sounds at the bases with scattered rhonchi noted. Abdomen is soft and obese, and nontender. Nervous system shows diffuse weakness. Please refer to medication reconciliation sheet for a list of medications. The impression and plan of care has been dictated by Charmaine Minor, Nurse Practitioner as directed. Dr. Jonny MD I have performed a history and examination and MDM of this patient, discussed the same with the dictator, and agree with the dictator's assessment and plan as written ,documented as a scribe. Based on total visit time, I have performed more than 50% of the visit. Patient Condition at Discharge: Stable Plan - Discharge Summary Discharge Rx Participant: No New Discharge Prescriptions: New Ipratropium-Albuterol Nebulize [Duoneb 0.5 mg-3 mg/3 ml Soln] 3 ml INHALATION RT-QID each Furosemide [Lasix] 40 mg PO DAILY tab predniSONE 5 mg PO DAILY 4 Days #4 tab predniSONE 10 mg PO DAILY 4 Days #4 tab predniSONE 30 mg PO DAILY 2 Days #2 tab Budesonide-Formot 160-4.5 Mcg [Symbicort 160-4.5 Mcg Inhaler] 2 puff INHALATION RT-BID each predniSONE [Deltasone] 20 mg PO DAILY 4 Days #4 tab Ipratropium-Albuterol Nebulize [Duoneb 0.5 mg-3 mg/3 ml Soln] 3 ml INHALATION RT-Q2H PRN each PRN Reason: Shortness Of Breath Or Wheezing Nicotine 21Mg/24Hr Patch [Habitrol] 1 patch TRANSDERM DAILY patch Enoxaparin [Lovenox] 40 mg SQ DAILY 14 Days #14 each INSULIN ASPART (NovoLOG) [NovoLOG (formulary)] 0 unit SQ ACHS each QUEtiapine [SEROquel] 25 mg PO HS tab Acetaminophen Tab [Tylenol] 650 mg PO Q6HR PRN tab PRN Reason: Fever and/ or Mild Pain Continue Pioglitazone [Actos] 30 mg PO DAILY Omeprazole 20 mg PO DAILY metFORMIN HCL [Glucophage] 1,000 mg PO BID Atorvastatin Calcium [Lipitor] 20 mg PO HS fluvoxaMINE [Luvox] 100 mg PO HS fluvoxaMINE [Luvox] 50 mg PO DAILY clonazePAM [KlonoPIN] 1 mg PO QID #4 tab Empagliflozin [Jardiance] 25 mg PO DAILY Albuterol Sulfate [Ventolin HFA] 2 puff INHALATION RT-QID PRN PRN Reason: Shortness Of Breath Discontinued [place] Carbonate 600 mg PO DAILY@1200 Metoprolol Tartrate [Lopressor] 25 mg PO BID QUEtiapine FUMARATE [SEROquel] 200 mg PO HS Insulin Regular, Human [humulin R U-500 Kwikpen] 60 unit SQ DAILY Insulin Regular, Human [humulin R U-500 Kwikpen] 40 unit SQ HS Ipratropium [place] [Atrovent Hfa] 2 puff INHALATION RT-QID lisinopriL [Zestril] 2.5 mg PO DAILY Discharge Medication List Albuterol Sulfate [Ventolin HFA] 2 puff INHALATION RT-QID PRN 12/31/20 [History] Atorvastatin Calcium [Lipitor] 20 mg PO HS 12/31/20 [History] Empagliflozin [Jardiance] 25 mg PO DAILY 12/31/20 [History] Omeprazole 20 mg PO DAILY 12/31/20 [History] Pioglitazone [Actos] 30 mg PO DAILY 12/31/20 [History] metFORMIN HCL [Glucophage] 1,000 mg PO BID 12/31/20 [History] fluvoxaMINE [Luvox] 50 mg PO DAILY 07/17/21 [History] fluvoxaMINE [Luvox] 100 mg PO HS 07/17/21 [History] Acetaminophen Tab [Tylenol] 650 mg PO Q6HR PRN tab 08/03/21 [Rx] Budesonide-Formot 160-4.5 Mcg [Symbicort 160-4.5 Mcg Inhaler] 2 puff INHALATION RT-BID each 08/03/21 [Rx] Enoxaparin [Lovenox] 40 mg SQ DAILY 14 Days #14 each 08/03/21 [Rx] Furosemide [Lasix] 40 mg PO DAILY tab 08/03/21 [Rx] INSULIN ASPART (NovoLOG) [NovoLOG (formulary)] 0 unit SQ ACHS each 08/03/21 [Rx] Ipratropium-Albuterol Nebulize [Duoneb 0.5 mg-3 mg/3 ml Soln] 3 ml INHALATION RT-Q2H PRN each 08/03/21 [Rx] Ipratropium-Albuterol Nebulize [Duoneb 0.5 mg-3 mg/3 ml Soln] 3 ml INHALATION RT-QID each 08/03/21 [Rx] Nicotine 21Mg/24Hr Patch [Habitrol] 1 patch TRANSDERM DAILY patch 08/03/21 [Rx] QUEtiapine [SEROquel] 25 mg PO HS tab 08/03/21 [Rx] clonazePAM [KlonoPIN] 1 mg PO QID #4 tab 08/03/21 [Rx] predniSONE 5 mg PO DAILY 4 Days #4 tab 08/03/21 [Rx] predniSONE 10 mg PO DAILY 4 Days #4 tab 08/03/21 [Rx] predniSONE 30 mg PO DAILY 2 Days #2 tab 08/03/21 [Rx] predniSONE [Deltasone] 20 mg PO DAILY 4 Days #4 tab 08/03/21 [Rx] Follow up Appointment(s)/Referral(s): Xavier Melendez DO [Doctor of Osteopathic Medicine] - 1 Week Anne Sosa MD [Primary Care Provider] - 1 Week Activity/Diet/Wound Care/Special Instructions: Patient is going to [facility] Activity as tolerated Patient continue with consistent carb diet Patient continue with prednisone taper as written on instructions Patient follow-up with pulmonary outpatient Patient follow-up with primary care provider outpatient Patient will continue on 2 L via nasal cannula and titrate as tolerated Patient will continue with breathing inhalational treatments Patient is to continue with sliding scale and Accu-Cheks before meals and at bedtime NovoLog sliding scale 0-150 equals 0 units 151-200 equals 2 units 201-250 equals 4 units 251-300 equals 6 units 301-350 equals 8 units 351-400 equals 10 units Please notify provider if blood sugar is 400 or above Patient to follow-up with CM in the outpatient setting per legal guardian Discharge Disposition: TRANSFER TO [facility]/F
[2021-08-03 11:46] LABS: Glucose,Whole Blood 221 mg/dL (75-99)
[2021-08-03 11:55] VITALS: PULSE 59
--- NOTE | 2021-08-03 11:57 | P.PN ---
Subjective Progress Note Date: 08/03/21 On 08/01/2021 patient seen in follow-up on medical surgical floor, he is awake and alert, oriented 3, breathing comfortably, he is currently on 2 L of oxygen pulse ox is 96%, afebrile, hemodynamically stable, he has had no fever or chills, vitals have been stable, no worsening cough or congestion. No altered mentation. Has not required BiPAP support, his oxygenation has improved and his oxygen demand has significantly improved and is currently down to 2 L from high flow oxygen a few days ago. No confusion or agitation. he is cooperative, and pleasant, he remains on Zosyn. His IV steroids have been transitioned to oral prednisone. Today's labs have been reviewed showing white blood cell count of 10.8, hemoglobin of 16.6, sodium is 135, potassium 3.5, chloride is 92, CO2 36, BUN is 10, creatinine 0.37, patient remains on maintenance dose of oral Lasix 40 mg daily, he has completed 11 days of zosyn On 08/02/2021 patient seen in follow-up on medical surgical floor. He is awake and alert, in no acute distress, no worsening dyspnea, cough or congestion. Vital signs have been stable, patient is on 2 L of oxygen pulse ox is 92%. No fever or chills. Antibiotics have been discontinued, patient completed 11 day course of Zosyn. His blood and sputum cultures have shown no growth. Anne Marie kocytosis has improved, his last set of blood work from yesterday showed white blood cell count of 10.8, hemoglobin of 16.6, sodium is 135, potassium 3.5, chloride is 92, CO2 36, BUN 10, creatinine 0.37. Tolerating oral intake, no nausea vomiting diarrhea, no abdominal pain. Patient was cleared for discharge home yesterday however she will require subacute rehab after discharge and currently subacute rehab placement arrangement is in progress. The patient is seen today 08/03/2021 in follow-up on the regular medical floor. He is currently resting comfortably in bed. Awake and alert in no acute distress. Maintaining good O2 saturations in the 90s on 2 L nasal cannula. Blood glucose 221. He is continued on DuoNeb inhalations, Symbicort, prednisone taper. Lovenox for DVT prophylaxis. Remains on a NicoDerm patch. Objective - Vital Signs Vital signs: Vital Signs Temp 98.1 F 08/03/21 04:30 Pulse 68 08/03/21 11:44 Resp 20 08/03/21 04:30 BP 142/81 08/03/21 04:30 Pulse Ox 94 L 08/03/21 08:18 FiO2 50 07/27/21 08:34 Intake & Output 08/02/21 08/03/21 08/03/21 18:59 06:59 18:59 Intake Total 118 Output Total 2500 1150 350 Balance -2500 -1150 -232 Weight 92 kg Intake: Oral 118 Output: Urine 2500 1150 350 Other: Voiding Method Urinal Urinal # Voids 1 ABP, PAP, CO, CI - Last Documented Arterial Blood Pressure 135/66 - Exam GENERAL EXAM: Alert, pleasant, 45-year-old male, resting in bed, breathing comfortably, 2 L of oxygen and pulse ox of 94% comfortable in no apparent distress. HEAD: Normocephalic/atraumatic. EYES: Normal reaction of pupils, equal size. Conjunctiva pink, sclera white. NOSE: Clear with pink turbinates. THROAT: No erythema or exudates. NECK: No masses, no JVD, no thyroid enlargement, no adenopathy. CHEST: No chest wall deformity. Symmetrical expansion. LUNGS: Equal air entry with no crackles, wheeze, rhonchi or dullness. CVS: Regular rate and rhythm, normal S1 and S2, no gallops, no murmurs, no rubs ABDOMEN: Soft, nontender. No hepatosplenomegaly, normal bowel sounds, no guarding or rigidity. EXTREMITIES: No clubbing, no edema, no cyanosis, 2+ pulses and upper and lower extremities. MUSCULOSKELETAL: Muscle strength and tone normal. SPINE: No scoliosis or deformity SKIN: No rashes CENTRAL NERVOUS SYSTEM: No focal deficits, tone is normal in all 4 extremities. PSYCHIATRIC: Alert and oriented -3. Appropriate affect. Intact judgment and insight. - Labs CBC & Chem 7: 08/01/21 12:03 08/01/21 12:03 Labs: Abnormal Lab Results - Last 24 Hours (Table) 08/02/21 08/02/21 08/03/21 Range/Units 16:39 20:14 07:10 POC Glucose (mg/dL) 258 H 257 H 124 H (75-99) mg/dL 08/03/21 Range/Units 11:44 POC Glucose (mg/dL) 221 H (75-99) mg/dL Assessment and Plan Assessment: Acute exacerbation of chronic obstructive pulmonary disease with acute hypoxemic respiratory failure requiring intubation on 07/20/2021 and successfully extubated on 07/25/2021, currently back on 2 L nasal cannula Suicidal ideations and depression and the patient with history of bipolar disorder initially on the inpatient psychiatric unit Chronic and ongoing tobacco dependence History of diabetes mellitus History of hypertension History of spina bifida previous back surgery NM utilizes a wheelchair at times History of pancreatitis Plan: The patient was seen and evaluated Cleared for discharge from the pulmonary standpoint Continue Symbicort, DuoNeb inhalations, prednisone taper Evaluate for possible home oxygen Educated regarding the importance of complete smoking cessation NicoDerm patch in place Plan is to be discharged to [facility] in [place] I have personally seen and examined the patient, performed the documentation and the assessment and plan as written. Number of minutes spent on the visit: 10.
[2021-08-06] MEDS ORDERED: predniSONE 20 MG TAB PO SCH (09:00)
[2021-08-10] MEDS ORDERED: predniSONE 10 MG TAB PO SCH (09:00)
[2021-08-14] MEDS ORDERED: predniSONE 5 MG TAB PO SCH (09:00)
== END 2021-08-03 13:15 | DRG 207 ==
LOC: 5NMEDONC 15:57 → 2SICU 07-20 09:43 → 5NMEDONC 07-31 09:57
PROVIDERS: ADMIT Hospitalist; ATTEND Hospitalist
PROC: 0BH17EZ Insertion of Endotracheal Airway into Trachea, Via Natural or Artificial Opening (ICD-10-PCS; principal; 2021-07-20)
PROC: 5A1955Z Respiratory Ventilation, Greater than 96 Consecutive Hours (ICD-10-PCS; principal; 2021-07-20)
PROC: 02HV33Z Insertion of Infusion Device into Superior Vena Cava, Percutaneous Approach (ICD-10-PCS; 2021-07-21)
PROC: 5A09457 Assistance with Respiratory Ventilation, 24-96 Consecutive Hours, Continuous Positive Airway Pressure (ICD-10-PCS; 2021-07-25)
PROC: 5A0945A Assistance with Respiratory Ventilation, 24-96 Consecutive Hours, High Flow/Velocity Cannula (ICD-10-PCS; 2021-07-27)
DX: J44.1 Chronic obstructive pulmonary disease with (acute) exacerbation (principal); J69.0 Pneumonitis due to inhalation of food and vomit; G93.41 Metabolic encephalopathy; J96.21 Acute and chronic respiratory failure with hypoxia; J96.22 Acute and chronic respiratory failure with hypercapnia; E66.2 Morbid (severe) obesity with alveolar hypoventilation; J90 Pleural effusion, not elsewhere classified; J98.11 Atelectasis; R45.851 Suicidal ideations; J44.0 Chronic obstructive pulmonary disease with (acute) lower respiratory infection; B30.9 Viral conjunctivitis, unspecified; E11.649 Type 2 diabetes mellitus with hypoglycemia without coma; Z68.29 Body mass index [BMI] 29.0-29.9, adult; E86.0 Dehydration; E87.6 Hypokalemia; E87.70 Fluid overload, unspecified; I10 Essential (primary) hypertension; F17.210 Nicotine dependence, cigarettes, uncomplicated; Z71.6 Tobacco abuse counseling; R45.1 Restlessness and agitation; F31.9 Bipolar disorder, unspecified; G43.909 Migraine, unspecified, not intractable, without status migrainosus; F41.1 Generalized anxiety disorder; F90.9 Attention-deficit hyperactivity disorder, unspecified type; Z86.19 Personal history of other infectious and parasitic diseases; Q05.9 Spina bifida, unspecified; Z20.822 Contact with and (suspected) exposure to COVID-19; Z79.4 Long term (current) use of insulin; Z79.52 Long term (current) use of systemic steroids; Z79.84 Long term (current) use of oral hypoglycemic drugs; Z79.899 Other long term (current) drug therapy; Z91.81 History of falling; Z99.3 Dependence on wheelchair; Z98.890 Other specified postprocedural states; Z91.048 Other nonmedicinal substance allergy status
CPT/HCPCS: 36600; 71045; 80048; 80053; 81001; 82330; 82805; 83735; 83880; 84100; 84132; 84145; 85025; 85027; 87040; 87070; 87205; 87502; 93306; 94002; 94003; 94640; 94660; 94760

== ENCOUNTER 2021-12-16 09:19 | Observation (INO) | payer MEDICARE, OTHER ==
[2021-12-16 09:22] LABS: Glucose,Whole Blood 37 mg/dL (70-110)
[2021-12-16] MEDS ORDERED: DEXTROSE 50% SYRINGE 50 ML IVP STA ×2 (09:29→10:53)
--- NOTE | 2021-12-16 09:33 | ED ---
General Adult HPI - General Chief complaint: Altered Mental Status Stated complaint: Blood sugar Time Seen by Provider: 12/16/21 09:22 Source: patient, RN notes reviewed Mode of arrival: EMS Limitations: no limitations - History of Present Illness Initial comments: Patient is a pleasant 46-year-old male presenting to the emergency department with hypoglycemic episode. Patient was having decreased responsiveness and generalized shaking. EMS found blood sugar 50 and did give a half amp D50 with improvement of symptoms. Patient is feeling better at this time however admits he is not 100% normal. Patient went to sit down and the chair moved and he did strike his head lightly after symptoms had arty started. Patient denies any discomfort at this time. Patient denies any other pain. No recent illness. Patient has not this meals or recent change in medications. - Related Data Home Medications Medication Instructions Recorded Confirmed Albuterol Sulfate [Ventolin HFA] 2 puff INHALATION RT-QID PRN 12/31/20 07/18/21 Atorvastatin Calcium [Lipitor] 20 mg PO HS 12/31/20 07/18/21 Empagliflozin [Jardiance] 25 mg PO DAILY 12/31/20 07/18/21 Omeprazole 20 mg PO DAILY 12/31/20 07/18/21 Pioglitazone [Actos] 30 mg PO DAILY 12/31/20 07/18/21 metFORMIN HCL [Glucophage] 1,000 mg PO BID 12/31/20 07/18/21 fluvoxaMINE [Luvox] 50 mg PO DAILY 07/17/21 07/18/21 fluvoxaMINE [Luvox] 100 mg PO HS 07/17/21 07/18/21 Previous Rx's Medication Instructions Recorded Acetaminophen Tab [Tylenol] 650 mg PO Q6HR PRN tab 08/03/21 Budesonide-Formot 160-4.5 Mcg 2 puff INHALATION RT-BID each 08/03/21 [Symbicort 160-4.5 Mcg Inhaler] Enoxaparin [Lovenox] 40 mg SQ DAILY 14 Days #14 each 08/03/21 Furosemide [Lasix] 40 mg PO DAILY tab 08/03/21 INSULIN ASPART (NovoLOG) [NovoLOG 0 unit SQ ACHS each 08/03/21 (formulary)] Ipratropium-Albuterol Nebulize 3 ml INHALATION RT-Q2H PRN each 08/03/21 [Duoneb 0.5 mg-3 mg/3 ml Soln] Ipratropium-Albuterol Nebulize 3 ml INHALATION RT-QID each 08/03/21 [Duoneb 0.5 mg-3 mg/3 ml Soln] Nicotine 21Mg/24Hr Patch [Habitrol] 1 patch TRANSDERM DAILY patch 08/03/21 QUEtiapine [SEROquel] 25 mg PO HS tab 08/03/21 clonazePAM [KlonoPIN] 1 mg PO QID #4 tab 08/03/21 predniSONE 5 mg PO DAILY 4 Days #4 tab 08/03/21 predniSONE 10 mg PO DAILY 4 Days #4 tab 08/03/21 predniSONE 30 mg PO DAILY 2 Days #2 tab 08/03/21 predniSONE [Deltasone] 20 mg PO DAILY 4 Days #4 tab 08/03/21 Allergies Allergy/AdvReac Type Severity Reaction Status Date / Time metals Allergy Rash/Hives, Uncoded 12/16/21 09:28 swelling Review of Systems ROS Statement: Those systems with pertinent positive or pertinent negative responses have been documented in the HPI. ROS Other: All systems not noted in ROS Statement are negative. Constitutional: Denies: fever Eyes: Denies: eye pain ENT: Denies: ear pain Respiratory: Denies: cough Cardiovascular: Denies: chest pain Endocrine: Denies: fatigue Gastrointestinal: Denies: abdominal pain Genitourinary: Denies: dysuria Musculoskeletal: Denies: back pain Skin: Denies: rash Neurological: Reports: as per HPI, confusion. Denies: weakness Past Medical History Past Medical History: Asthma, Diabetes Mellitus, GERD/Reflux, Hypertension, Skin Disorder Additional Past Medical History / Comment(s): hx spina bifida, spinal stenosis, pancreatitis. scrotal wound (to start on antibiotics 10/31/15), migraines, uses wheelchair-can ambulate but does fall at times History of Any Multi-Drug Resistant Organisms: None Reported Past Surgical History: Back Surgery Additional Past Surgical History / Comment(s): back surgery- 3 rods, 4 screws Past Anesthesia/Blood Transfusion Reactions: No Reported Reaction Past Psychological History: ADD/ADHD, Bipolar Smoking Status: Current every day smoker Past Alcohol Use History: None Reported Past Drug Use History: None Reported - Past Family History Mother Family Medical History: Cancer Father Family Medical History: Cancer General Exam Limitations: no limitations General appearance: alert, in no apparent distress Head exam: Present: other (Forehead abrasion) Eye exam: Present: normal appearance, PERRL, EOMI ENT exam: Present: normal oropharynx Neck exam: Present: normal inspection. Absent: tenderness Respiratory exam: Present: normal lung sounds bilaterally Cardiovascular Exam: Present: regular rate, normal rhythm GI/Abdominal exam: Present: soft. Absent: tenderness Extremities exam: Present: normal inspection, full ROM. Absent: tenderness Neurological exam: Present: alert, oriented X3, CN II-XII intact. Absent: motor sensory deficit Expanded Neurological exam: Present: protecting the airway Patient oriented to: Present: person, place, time Speech: Present: fluid speech Cranial nerves: EOM's Intact: Normal Motor strength exam: RUE: 5, LUE: 5, RLE: 5, LLE: 5 Eye Response: (4) open spontaneously Motor Response: (6) obeys commands Verbal Response: (5) oriented Psychiatric exam: Present: normal affect, normal mood Skin exam: Present: normal color Course Vital Signs 12/16/21 09:25 Temperature 98.1 F Pulse Rate 103 H Respiratory 18 Rate Blood Pressure 146/89 O2 Sat by Pulse 95 Oximetry EKG Findings - EKG Comments: EKG Findings:: Sinus rhythm with a rate of 99. MD 14. QRS 99. QT 373. QTC 4:30. Normal axis. Normal QRS. No acute ST change. Medical Decision Making - Medical Decision Making Patient reevaluated. Blood sugar dropped again to 50. Patient given additional medications including octreotide, another half amp of D 50 and switched to D5 half normal saline. Patient and family updated. Case was discussed with Dr. Jones, who will admit covering Dr. Nguyễn. - Lab Data Result diagrams: 12/16/21 09:34 12/16/21 09:34 Lab Results 12/16/21 12/16/21 12/16/21 Range/Units 09:21 09:34 09:34 WBC 11.4 H (3.8-10.6) k/uL RBC 5.47 (4.30-5.90) m/uL Hgb 17.1 (13.0-17.5) gm/dL Hct 51.6 (39.0-53.0) % MCV 94.3 (80.0-100.0) fL MCH 31.3 (25.0-35.0) pg MCHC 33.2 (31.0-37.0) g/dL RDW 14.6 (11.5-15.5) % Plt Count 245 (150-450) k/uL MPV 8.0 Neutrophils % 77 % Lymphocytes % 15 % Monocytes % 6 % Eosinophils % 0 % Basophils % 1 % Neutrophils # 8.8 H (1.3-7.7) k/uL Lymphocytes # 1.7 (1.0-4.8) k/uL Monocytes # 0.7 (0-1.0) k/uL Eosinophils # 0.0 (0-0.7) k/uL Basophils # 0.1 (0-0.2) k/uL PT 10.9 (9.0-12.0) sec INR 1.0 (<1.2) APTT 23.7 (22.0-30.0) sec Sodium (137-145) mmol/L Potassium (3.5-5.1) mmol/L Chloride (98-107) mmol/L Carbon Dioxide (22-30) mmol/L Anion Gap mmol/L BUN (9-20) mg/dL Creatinine (0.66-1.25) mg/dL Est GFR (CKD-EPI)AfAm (>60 ml/min/1.73 sqM) Est GFR (CKD-EPI)NonAf (>60 ml/min/1.73 sqM) Glucose (74-99) mg/dL POC Glucose (mg/dL) 37 L (70-110) mg/dL POC Glu Cafe Attendant ID Sandee Valverde Calcium (8.4-10.2) mg/dL Total Bilirubin (0.2-1.3) mg/dL AST (17-59) U/L ALT (4-49) U/L Alkaline Phosphatase (38-126) U/L Total Protein (6.3-8.2) g/dL Albumin (3.5-5.0) g/dL Serum Alcohol mg/dL 12/16/21 12/16/21 12/16/21 Range/Units 09:34 10:02 10:48 WBC (3.8-10.6) k/uL RBC (4.30-5.90) m/uL Hgb (13.0-17.5) gm/dL Hct (39.0-53.0) % MCV (80.0-100.0) fL MCH (25.0-35.0) pg MCHC (31.0-37.0) g/dL RDW (11.5-15.5) % Plt Count (150-450) k/uL MPV Neutrophils % % Lymphocytes % % Monocytes % % Eosinophils % % Basophils % % Neutrophils # (1.3-7.7) k/uL Lymphocytes # (1.0-4.8) k/uL Monocytes # (0-1.0) k/uL Eosinophils # (0-0.7) k/uL Basophils # (0-0.2) k/uL PT (9.0-12.0) sec INR (<1.2) APTT (22.0-30.0) sec Sodium 141 (137-145) mmol/L Potassium 3.2 L (3.5-5.1) mmol/L Chloride 101 (98-107) mmol/L Carbon Dioxide 28 (22-30) mmol/L Anion Gap 12 mmol/L BUN 6 L (9-20) mg/dL Creatinine 0.55 L (0.66-1.25) mg/dL Est GFR (CKD-EPI)AfAm >90 (>60 ml/min/1.73 sqM) Est GFR (CKD-EPI)NonAf >90 (>60 ml/min/1.73 sqM) Glucose 79 (74-99) mg/dL POC Glucose (mg/dL) 44 L 50 L (70-110) mg/dL POC Glu Cafe Attendant ID Valverde SandeeSandee Goncalves Calcium 9.8 (8.4-10.2) mg/dL Total Bilirubin 0.5 (0.2-1.3) mg/dL AST 35 (17-59) U/L ALT 22 (4-49) U/L Alkaline Phosphatase 101 (38-126) U/L Total Protein 6.4 (6.3-8.2) g/dL Albumin 4.2 (3.5-5.0) g/dL Serum Alcohol <10 mg/dL Critical Care Time Critical Care Time: Yes Total Critical Care Time: 32 Disposition Clinical Impression: Hypoglycemia Disposition: ADMITTED IP TO THIS [facility] Is patient prescribed a controlled substance at d/c from ED?: No Referrals: Anne Sosa MD [Primary Care Provider] - 1-2 days Time of Disposition: 10:56
[2021-12-16 09:45] LABS: Basophils # (A) 0.1 k/uL (0-0.2); Basophils % (A) 1 %; Eosinophils % (A) 0 %; HCT 51.6 % (39.0-53.0); HGB 17.1 gm/dL (13.0-17.5); Lymphocytes # (A) 1.7 k/uL (1.0-4.8); Lymphocytes % (A) 15 %; MCH 31.3 pg (25.0-35.0); MCHC 33.2 g/dL (31.0-37.0); MCV 94.3 fL (80.0-100.0); Monocytes # (A) 0.7 k/uL (0-1.0); Monocytes % (A) 6 %; Neutrophils # (A) 8.8 k/uL (1.3-7.7); Neutrophils % (A) 77 %; Platelet Count 245 k/uL (150-450); RBC 5.47 m/uL (4.30-5.90); RDW 14.6 % (11.5-15.5); WBC 11.4 k/uL (3.8-10.6)
[2021-12-16 09:54] LABS: Partial Thromboplastin Time 23.7 sec (22.0-30.0); Prothrombin Time 10.9 sec (9.0-12.0)
--- NOTE | 2021-12-16 09:55 | XR ---
EXAMINATION TYPE: XR chest 2V DATE OF EXAM: 12/16/2021 COMPARISON: Chest x-ray 07/30/2021 HISTORY: Altered mental status TECHNIQUE: Frontal and lateral views of the chest are obtained on 3 images. FINDINGS: There is no focal air space opacity, pleural effusion, or pneumothorax seen. The cardiac silhouette size is within normal limits. The aorta is dense. The osseous structures are intact. IMPRESSION: No acute cardiopulmonary process.
[2021-12-16 09:57] LABS: ALT 22 U/L (4-49); AST 35 U/L (17-59); African American GFR (CKD) >90 (>60 ml/min/1.73 sqM); Albumin 4.2 g/dL (3.5-5.0); Alcohol <10 mg/dL; Alkaline Phosphatase 101 U/L (38-126); Anion Gap 12 mmol/L; Blood Urea Nitrogen 6 mg/dL (9-20); Calcium 9.8 mg/dL (8.4-10.2); Carbon Dioxide 28 mmol/L (22-30); Chloride 101 mmol/L (98-107); Glucose 79 mg/dL (74-99); Non-African American GFR(CKD) >90 (>60 ml/min/1.73 sqM); Potassium 3.2 mmol/L (3.5-5.1); Sodium 141 mmol/L (137-145); Total Bilirubin 0.5 mg/dL (0.2-1.3); Total Protein 6.4 g/dL (6.3-8.2)
[2021-12-16 10:03] LABS: Glucose,Whole Blood 44 mg/dL (70-110)
--- NOTE | 2021-12-16 10:47 | CT ---
EXAMINATION TYPE: CT brain wo con DATE OF EXAM: 12/16/2021 COMPARISON: HISTORY: AMS CT DLP: 1158.4 mGycm. Automated Exposure Control for Dose Reduction was Utilized. TECHNIQUE: CT scan of the head is performed without contrast. FINDINGS: There is some motion, artifact on the exam. Cerebral vascular calcifications are present. There is no acute intracranial hemorrhage, mass effect, or midline shift identified. The ventricles and sulci are within normal limits in size. Some white matter patchy low attenuation is present in t he periventricular location. The globes are intact and the visualized sinuses are remarkable for poss ible polyp or mucous retention cyst in the right maxillary sinus and left maxillary sinus. IMPRESSION: No acute intracranial hemorrhage, mass effect, or midline shift is seen. Nonspecific whi te matter demyelination, MRI may be of benefit. Sinus disease. Additional findings above.
[2021-12-16 10:50] LABS: Glucose,Whole Blood 50 mg/dL (70-110)
[2021-12-16] MEDS ORDERED: OCTREOTIDE 200 MCG/ML 5 ML VIAL SQ STA (10:51)
[2021-12-16] MEDS ORDERED: DEXTROSE 5%-0.45% NACL 1,000 ML IV ONE (10:53)
[2021-12-16] MEDS ORDERED: NALOXONE 0.4 MG/ML 1 ML VIAL IV PRN (10:56)
[2021-12-16 10:59] LABS: Amphetamine Screen,Urine Not Detected (NotDetected); Barbiturate Screen,Urine Not Detected (NotDetected); Benzodiazepines Screen,Urine Not Detected (NotDetected); Cocaine Screen,Urine Not Detected (NotDetected); Methadone Screen, Urine Not Detected (NotDetected); Opiate Screen,Urine Not Detected (NotDetected); Oxycodone Screen, Urine Not Detected (NotDetected); Phencyclidine Screen,Urine Not Detected (NotDetected); Tricyclic Antidepressant,Urine Detected (NotDetected); Urn Cannabinoid Scrn Not Detected (NotDetected)
[2021-12-16] MEDS ORDERED: POTASSIUM CHLORIDE ER 20 MEQ TAB.ER PO STA (11:33)
[2021-12-16 11:35] LABS: Glucose,Whole Blood 48 mg/dL (70-110)
--- NOTE | 2021-12-16 11:53 | P.HPIM ---
History of Present Illness H&P Date: 12/16/21 Chief Complaint: Hypoglycemia 46 years old gentleman with past medical history of bipolar disorder type I, ADD, asthma, COPD, type 2 diabetes, hypertension, GERD presents to the hospital with chief complaint of hypoglycemia. The patient stated that he woke up in the morning and he checked his blood glucose and it was 120, and he decided to take 40 units of his insulin to bring it down to 60 or 70. The patient is a poor historian he doesn't know what was his insulin name and he described it as a baby blue pen and he only uses one kind of insulin which is short acting not longer acting. He states that he follows up with mounter [employer] and he checks his blood insulin up to 4 times daily and he gets readings between 120 and 140. He also states that he takes metformin and he takes psych meds but he doesn't know the names of it. The patient states that he lives with his mother and his brother comes and check on him occasionally. He denies having any chest pain or shortness of breath, no nausea vomiting diarrhea or constipation. He was brought in by EMS his blood glucose was 50 in the EMS he was given D5W and his blood glucose dropped to 38, he was given octreotide as well, started on D5 half-normal saline. EKG, chest x-ray, brain CT unremarkable. Vital signs within normal limits Review of Systems A 14 point review systems was assessed patient was only positive for those described in HPI Past Medical History Past Medical History: Asthma, Diabetes Mellitus, GERD/Reflux, Hypertension, Skin Disorder Additional Past Medical History / Comment(s): hx spina bifida, spinal stenosis, pancreatitis. scrotal wound (to start on antibiotics 10/31/15), migraines, uses wheelchair-can ambulate but does fall at times History of Any Multi-Drug Resistant Organisms: None Reported Past Surgical History: Back Surgery Additional Past Surgical History / Comment(s): back surgery- 3 rods, 4 screws Past Anesthesia/Blood Transfusion Reactions: No Reported Reaction Past Psychological History: ADD/ADHD, Bipolar Smoking Status: Current every day smoker Past Alcohol Use History: None Reported Past Drug Use History: None Reported - Past Family History Mother Family Medical History: Cancer Father Family Medical History: Cancer Medications and Allergies Home Medications Medication Instructions Recorded Confirmed Type Albuterol Sulfate [Ventolin HFA] 2 puff INHALATION RT-QID PRN 12/31/20 07/18/21 History Atorvastatin Calcium [Lipitor] 20 mg PO HS 12/31/20 07/18/21 History Empagliflozin [Jardiance] 25 mg PO DAILY 12/31/20 07/18/21 History Omeprazole 20 mg PO DAILY 12/31/20 07/18/21 History Pioglitazone [Actos] 30 mg PO DAILY 12/31/20 07/18/21 History metFORMIN HCL [Glucophage] 1,000 mg PO BID 12/31/20 07/18/21 History fluvoxaMINE [Luvox] 50 mg PO DAILY 07/17/21 07/18/21 History fluvoxaMINE [Luvox] 100 mg PO HS 07/17/21 07/18/21 History Acetaminophen Tab [Tylenol] 650 mg PO Q6HR PRN tab 08/03/21 Rx Budesonide-Formot 160-4.5 Mcg 2 puff INHALATION RT-BID each 08/03/21 Rx [Symbicort 160-4.5 Mcg Inhaler] Enoxaparin [Lovenox] 40 mg SQ DAILY 14 Days #14 each 08/03/21 Rx Furosemide [Lasix] 40 mg PO DAILY tab 08/03/21 Rx INSULIN ASPART (NovoLOG) [NovoLOG 0 unit SQ ACHS each 08/03/21 Rx (formulary)] Ipratropium-Albuterol Nebulize 3 ml INHALATION RT-Q2H PRN each 08/03/21 Rx [Duoneb 0.5 mg-3 mg/3 ml Soln] Ipratropium-Albuterol Nebulize 3 ml INHALATION RT-QID each 08/03/21 Rx [Duoneb 0.5 mg-3 mg/3 ml Soln] Nicotine 21Mg/24Hr Patch [Habitrol] 1 patch TRANSDERM DAILY patch 08/03/21 Rx QUEtiapine [SEROquel] 25 mg PO HS tab 08/03/21 Rx clonazePAM [KlonoPIN] 1 mg PO QID #4 tab 08/03/21 Rx predniSONE 5 mg PO DAILY 4 Days #4 tab 08/03/21 Rx predniSONE 10 mg PO DAILY 4 Days #4 tab 08/03/21 Rx predniSONE 30 mg PO DAILY 2 Days #2 tab 08/03/21 Rx predniSONE [Deltasone] 20 mg PO DAILY 4 Days #4 tab 08/03/21 Rx Allergies Allergy/AdvReac Type Severity Reaction Status Date / Time metals Allergy Rash/Hives, Uncoded 12/16/21 09:28 swelling Physical Exam Vitals: Vital Signs Temp Pulse Resp BP Pulse Ox 12/16/21 09:25 98.1 F 103 H 18 146/89 95 Intake and Output 12/15/21 12/16/21 12/16/21 22:59 06:59 14:59 Other: Weight 81.647 kg General: [non toxic], [mild distress], [appears at stated age] Derm: [warm], [dry] Head: [atraumatic], [normocephalic], [symmetric] Eyes: [EOMI], [no lid lag], [anicteric sclera] Mouth: [no lip lesion], [mucus membranes moist] Cardiovascular: [S1S2 reg], [no murmur], [positive posterior tibial pulse bilateral], Lungs: [CTA bilateral], [no rhonchi, no rales] , [no accessory muscle use] Abdominal: [soft], [ nontender to palpation], [no guarding], [no appreciable organomegaly] Ext: [no gross muscle atrophy], [no edema], [no contractures] Neuro: [ CN II-XI grossly intact], [no focal neuro deficits] Psych: [Alert], [oriented] Results CBC & Chem 7: 12/16/21 09:34 12/16/21 09:34 Labs: Abnormal Lab Results - Last 24 Hours (Table) 12/16/21 12/16/21 12/16/21 Range/Units 09:21 09:34 09:34 WBC 11.4 H (3.8-10.6) k/uL Neutrophils # 8.8 H (1.3-7.7) k/uL Potassium 3.2 L (3.5-5.1) mmol/L BUN 6 L (9-20) mg/dL Creatinine 0.55 L (0.66-1.25) mg/dL POC Glucose (mg/dL) 37 L (70-110) mg/dL U Tricyclic Antidepress (NotDetected) 12/16/21 12/16/21 12/16/21 Range/Units 10:02 10:29 10:48 WBC (3.8-10.6) k/uL Neutrophils # (1.3-7.7) k/uL Potassium (3.5-5.1) mmol/L BUN (9-20) mg/dL Creatinine (0.66-1.25) mg/dL POC Glucose (mg/dL) 44 L 50 L (70-110) mg/dL U Tricyclic Antidepress Detected H (NotDetected) 12/16/21 Range/Units 11:34 WBC (3.8-10.6) k/uL Neutrophils # (1.3-7.7) k/uL Potassium (3.5-5.1) mmol/L BUN (9-20) mg/dL Creatinine (0.66-1.25) mg/dL POC Glucose (mg/dL) 48 L (70-110) mg/dL U Tricyclic Antidepress (NotDetected) Assessment and Plan Assessment: Hypoglycemia secondary to medication nonadherence Type 2 diabetes -His last A1c was unknown -According to the patient he follows up with endocrinology -Blood glucose checks between 120-140 -Given D5W and octreotide in the ED -Continue glucose checks -Hold his diabetic medications for now -Start sliding scale if needed -Check hemoglobin A1c -Check lipid panel History of COPD History of asthma -Not an exacerbation -Resume home inhalers Hypertension -Resume home medications Bipolar disorder ADD -Resume home medications History of spina bifida History of spinal stenosis -Resume home medications DVT Prophylaxis: Subcu heparin, early ambulation PPI prophylaxis not needed Code status: Full code Anticipated length of stay: Less than [address]: Home
[2021-12-16 12:09] LABS: Appearance,Urine Clear (Clear); Bilirubin,Urine Negative (Negative); Blood,Urine Negative (Negative); Color,Urine Light Yellow; Glucose,Urine (UA) 4+ (Negative); Hyaline Casts,Urine 15 /lpf (0-2); Ketones,Urine Negative (Negative); Leukocyte Esterase,Urine Negative (Negative); Mucus,Urine Few /hpf; Nitrite,Urine Negative (Negative); Protein,Urine 1+ (Negative); RBC,Urine 6 /hpf (0-5); Specific Gravity,Urine 1.013 (1.001-1.035); Urobilinogen,Urine <2.0 mg/dL (<2.0); WBC,Urine 1 /hpf (0-5)
[2021-12-16 13:23] LABS: Glucose,Whole Blood 84 mg/dL (70-110)
[2021-12-16] MEDS ORDERED: ALBUTEROL NEBULIZED 2.5 MG/3 ML INHALATION PRN (14:11)
[2021-12-16 15:26] LABS: Glucose,Whole Blood 31 mg/dL (70-110)
[2021-12-16] MEDS: IPRATROPIUM-ALBUTEROL 3 ML NEB INHALATION SCH ×2 (15:39→19:23)
[2021-12-16] MEDS: DEXTROSE 50% SYRINGE 50 ML IVP STA ×2 (16:05→16:41)
[2021-12-16] MEDS: clonazePAM 1 MG TAB PO PRN (16:15)
[2021-12-16] MEDS: DEXTROSE 5%-0.45% NACL 1,000 ML IV SCH (16:16)
[2021-12-16 16:35] LABS: Glucose,Whole Blood 40 mg/dL (70-110)
[2021-12-16 17:48] LABS: Glucose,Whole Blood 77 mg/dL (70-110)
[2021-12-16] MEDS: HEPARIN SODIUM,PORCINE/PF 5,000 UNIT/0.5 ML SYRINGE SQ SCH (18:10)
[2021-12-16 18:49] LABS: Glucose,Whole Blood 63 mg/dL (70-110)
[2021-12-16] MEDS: SYMBICORT 160-4.5 MCG INHALER INHALATION SCH (19:23)
[2021-12-16 20:12] LABS: Glucose,Whole Blood 92 mg/dL (70-110)
[2021-12-16] MEDS: METOPROLOL TARTRATE 25 MG TAB PO SCH (20:49)
[2021-12-16] MEDS ORDERED: QUEtiapine 50 MG TAB PO SCH (21:00)
[2021-12-16] MEDS ORDERED: ATORVASTATIN 20 MG TAB PO SCH (21:00)
[2021-12-17 01:16] LABS: Glucose,Whole Blood 109 mg/dL (70-110)
[2021-12-17] MEDS: clonazePAM 1 MG TAB PO PRN ×2 (01:21→09:01)
[2021-12-17] MEDS: HEPARIN SODIUM,PORCINE/PF 5,000 UNIT/0.5 ML SYRINGE SQ SCH ×2 (02:55→13:39)
[2021-12-17] MEDS: DEXTROSE 5%-0.45% NACL 1,000 ML IV SCH ×2 (02:55→13:39)
[2021-12-17 06:56] LABS: Glucose,Whole Blood 115 mg/dL (70-110)
[2021-12-17] MEDS: SYMBICORT 160-4.5 MCG INHALER INHALATION SCH ×2 (07:23→07:46)
[2021-12-17] MEDS: IPRATROPIUM-ALBUTEROL 3 ML NEB INHALATION SCH ×5 (07:23→15:53)
[2021-12-17 08:07] LABS: Glucose,Whole Blood 120 mg/dL (70-110)
[2021-12-17 08:22] VITALS: BP 122/63; RESP 24; TEMP 98.5
[2021-12-17] MEDS: METOPROLOL TARTRATE 25 MG TAB PO SCH (09:01)
[2021-12-17 09:18] LABS: HCT 46.7 % (39.6-50.0); HGB 15.1 g/dL (13.0-17.0); MCH 30.6 pg (27.0-32.0); MCHC 32.3 g/dL (32.0-37.0); MCV 94.5 fL (80.0-97.0); Mean Platelet Volume 10.1 fL (9.5-12.2); NRBC Per 100 WBC 0 /100 WBCS (0.0-0.0); Platelet Count 241 X 10*3/uL (140-440); RBC 4.94 X 10*6/uL (4.40-5.60); RDW 14.8 % (11.5-14.5); WBC 12.77 X 10*3/uL (4.50-10.00)
[2021-12-17 09:49] LABS: African American GFR (CKD) 137.8 (60.0-200.0); Anion Gap 7.3 mmol/L (10.00-18.00); BUN/Creat Ratio 22.33 Ratio (12.00-20.00); Blood Urea Nitrogen 13.4 mg/dL (9.0-27.0); Calcium 8.6 mg/dL (8.7-10.3); Carbon Dioxide 28.7 mmol/L (20.0-27.5); Non-African American GFR(CKD) 118.9 (60.0-200.0); Potassium 5.1 mmol/L (3.5-5.5)
[2021-12-17 09:51] LABS: Basophils # (A) 0.05 X 10*3/uL (0.00-0.10); Basophils % (A) 0.4 %; Eosinophils # (A) 0.08 X 10*3/uL (0.04-0.35); Eosinophils % (A) 0.6 %; Immature Grans, Automated 0.3 %; Lymphocytes # (A) 1.97 X 10*3/uL (0.90-5.00); Lymphocytes % (A) 15.4 %; Monocytes # (A) 1.71 X 10*3/uL (0.20-1.00); Monocytes % (A) 13.4 %; Neutrophils # (A) 8.92 X 10*3/uL (1.80-7.70); Neutrophils % (A) 69.9 %
[2021-12-17 09:52] LABS: RBC Morphology NORMAL
[2021-12-17 10:03] LABS: Glucose,Whole Blood 148 mg/dL (70-110)
[2021-12-17 12:20] LABS: Glucose,Whole Blood 197 mg/dL (70-110)
--- NOTE | 2021-12-17 15:32 | P.DS ---
Providers Date of admission: 12/16/21 11:18 Expected date of discharge: 12/17/21 Attending physician: Ruby Mayorga MD Primary care physician: Anne Sosa [place] [facility] Course: Discharge Diagnosis: Hypoglycemia secondary to adverse effect of medication. Hemoglobin A1c 5.1% Humulin R is being discontinued at this time. Patient to continue with oral hypoglycemic agents metformin, juardiance and pioglitazone. Type 2 diabetes mellitus History of COPD and continued nicotine dependence Hypertension Bipolar disorder ADHD Tardive dyskinesia Hospital Course: Patient is a very pleasant 46-year-old male with a past medical history of spina bifida, ADHD, bipolar disorder, tardive dyskinesia, COPD with continued nicotine dependence, hypertension, and diabetes mellitus. He presented to the emergency department on 12/16/21 with a chief complaint of hypoglycemia. Patient reportedly states that he follows with an dormitory maid and checks blood glucose levels 4 times daily and was instructed if blood glucose levels are greater than 120 he is to take 40 units of Humulin R. Patient reports this morning his blood glucose was 120 and he took the 40 units. Patient reportedly collapsed and was found by EMS with severe hypoglycemia with glucose as low as 38 treated with amps of D50. Upon arrival to our facility patient underwent full evaluation. He was initially found to have a blood glucose level of 37 requiring treatment with amps of D50, octreotide, and followed by D5 0.9% infusion. CBC unremarkable. Coags normal findings. CMP otherwise revealed mild hypokalemia with potassium of 3.2 otherwise unremarkable. Urinalysis negative for infection and urine drug screen positive for tricyclic antidepressants in which patient is prescribed. CT head negative for acute intercranial process. EKG showing normal sinus rhythm at 99 bpm. Patient admitted under our services initially placed on D5.45% NS infusion. Blood glucose levels stabilized by evening and patient had no further episodes of hypoglycemia. Hemoglobin A1c 5.1%. Patient back in functioning at baseline and denies having any complaints at this time. Humulin R is being discontinued his hemoglobin A1c is 5.1% and dosage the patient is reporting of 40 units daily is unsafe dosage for patient at this time. Recommend discontinuation and continue close monitoring of blood glucose levels and follow-up with dormitory maid. At this time it is not recommended for home insulin and patient to continue Patient medically stable for discharge home with his family at this time. Physical examination: Patient seen and examined at bedside. Vital signs reviewed and stable. General: Nontoxic, no distress and appears stated age. Derm: Skin warm and dry, normal coloration for ethnicity. Head: Atraumatic, normocephalic and symmetric. Eyes: EOMs intact, no lid lag, and anicteric sclera Mouth: no lip lesions, mucus membranes moist Cardiovascular: regular rate and rhythm with normal S1S2, no murmur, positive posterior tibial pulses bilaterally, and cap refill < 2 seconds. Lungs: Respirations even, regular, and unlabored on room air. Lungs CTA bilaterally, no rhonchi, no rales, no wheezing, and no accessory muscle usage. Abdominal: soft, nontender to palpation, no guarding, no appreciable organomegaly Ext: ROM intact. No gross muscle atrophy, no edema, no contractures Neuro: Speech clear, face symmetrical and CN II-XII grossly intact with no noted focal neuro deficits Psych: Alert and oriented to person, place, time, and situation. Appropriate and pleasant affect. A total of 33 minutes of time were spent preparing this complex discharge summary. Pt was discharged on 12/17/21 at 3:26 PM. I reviewed the documentation as provided by the MARIBEL above, who is the original author of this note. I agree with the documented assessment and plan, with the following changes: none Patient Condition at Discharge: Stable Plan - Discharge Summary Discharge Rx Participant: No New Discharge Prescriptions: Continue Pioglitazone [Actos] 30 mg PO DAILY metFORMIN HCL [Glucophage] 1,000 mg PO BID Atorvastatin Calcium [Lipitor] 20 mg PO HS fluvoxaMINE [Luvox] 100 mg PO HS fluvoxaMINE [Luvox] 50 mg PO DAILY Ipratropium-Albuterol Nebulize [Duoneb 0.5 mg-3 mg/3 ml Soln] 3 ml INHALATION RT-QID each Furosemide [Lasix] 40 mg PO DAILY tab Budesonide-Formot 160-4.5 Mcg [Symbicort 160-4.5 Mcg Inhaler] 2 puff INHALATION RT-BID each lisinopriL [Zestril] 2.5 mg PO DAILY QUEtiapine [SEROquel] 50 mg PO HS Valbenazine Tosylate [Ingrezza 40/80 MG Initiation Pack] 1 cap PO DAILY Empagliflozin [Jardiance] 25 mg PO DAILY Ipratropium-Albuterol Nebulize [Duoneb 0.5 mg-3 mg/3 ml Soln] 3 ml INHALATION RT-Q2H PRN each PRN Reason: Shortness Of Breath Or Wheezing Metoprolol Tartrate [Lopressor] 25 mg PO BID Nicotine 7Mg/24Hr Patch [Habitrol] 1 patch TRANSDERM DAILY PRN PRN Reason: Nicotine Cravings Potassium Chloride ER [K-Dur 20] 20 meq PO DAILY Discontinued Insulin Regular, Human [humulin R U-500 Kwikpen] 40 unit SQ DAILY No Action Omeprazole 20 mg PO BID #60 cap predniSONE 10 mg PO DIRECTED #40 tab Doxycycline [Vibramycin] 100 mg PO BID 7 Days #14 capsule Acetaminophen Tab [Tylenol] 650 mg PO Q6H PRN PRN Reason: Fever and/ or Mild Pain Albuterol Sulfate [Ventolin HFA] 2 puff INHALATION RT-QID PRN #1 each PRN Reason: Shortness Of Breath Discharge Medication List Atorvastatin Calcium [Lipitor] 20 mg PO HS 12/31/20 [History] Empagliflozin [Jardiance] 25 mg PO DAILY 12/31/20 [History] Pioglitazone [Actos] 30 mg PO DAILY 12/31/20 [History] metFORMIN HCL [Glucophage] 1,000 mg PO BID 12/31/20 [History] fluvoxaMINE [Luvox] 50 mg PO DAILY 07/17/21 [History] fluvoxaMINE [Luvox] 100 mg PO HS 07/17/21 [History] Budesonide-Formot 160-4.5 Mcg [Symbicort 160-4.5 Mcg Inhaler] 2 puff INHALATION RT-BID each 08/03/21 [Rx] Furosemide [Lasix] 40 mg PO DAILY tab 08/03/21 [Rx] Ipratropium-Albuterol Nebulize [Duoneb 0.5 mg-3 mg/3 ml Soln] 3 ml INHALATION RT-Q2H PRN each 08/03/21 [Rx] Ipratropium-Albuterol Nebulize [Duoneb 0.5 mg-3 mg/3 ml Soln] 3 ml INHALATION RT-QID each 08/03/21 [Rx] Metoprolol Tartrate [Lopressor] 25 mg PO BID 12/16/21 [History] Nicotine 7Mg/24Hr Patch [Habitrol] 1 patch TRANSDERM DAILY PRN 12/16/21 [History] Potassium Chloride ER [K-Dur 20] 20 meq PO DAILY 12/16/21 [History] QUEtiapine [SEROquel] 50 mg PO HS 12/16/21 [History] Valbenazine Tosylate [Ingrezza 40/80 MG Initiation Pack] 1 cap PO DAILY 12/16/21 [History] lisinopriL [Zestril] 2.5 mg PO DAILY 12/16/21 [History] Acetaminophen Tab [Tylenol] 650 mg PO Q6H PRN 12/19/21 [History] Albuterol Sulfate [Ventolin HFA] 2 puff INHALATION RT-QID PRN #1 each 12/20/21 [Rx] Doxycycline [Vibramycin] 100 mg PO BID 7 Days #14 capsule 12/20/21 [Rx] Omeprazole 20 mg PO BID #60 cap 12/20/21 [Rx] predniSONE 10 mg PO DIRECTED #40 tab 12/20/21 [Rx] Follow up Appointment(s)/Referral(s): Anne Sosa MD [Primary Care Provider] - 1-2 days Patient Instructions/Handouts: Hypoglycemia in a Person with Diabetes (DC) Activity/Diet/Wound Care/Special Instructions: Activity: As tolerated. Take breaks as needed. Diet: Heart healthy and carb consistent diet. Avoid salts, or foods with hidden salts such as canned or boxed foods and frozen dinners. Extra salt makes your heart work harder and traps the fluid in your body for longer. Special Instructions: Take all of your medications as directed and remember to keep all of your doctor's appointments and follow-up as needed. Monitor your blood glucose levels 3 times daily and document these findings in a daily log/journal to bring with you to your next doctor's appointment. Humulin R discontinued at this time as current dosage is inappropriate at this time. Currently your hemoglobin A1c is 5.1%, I do not recommend home insulin pending further monitoring of your daily blood glucose levels. Thank you for allowing us to participate in your care, it was truly a pleasure having you for our patient!!! Discharge Disposition: HOME SELF-CARE
[2021-12-17 16:08] VITALS: PULSE 80
== END 2021-12-17 16:20 | disposition home or self-care (01) ==
LOC: EC 09:19 → 6NMEDSUR 11:18
PROVIDERS: ADMIT Internal Medicine; ATTEND Internal Medicine
DX: E11.649 Type 2 diabetes mellitus with hypoglycemia without coma (principal); T38.3X5A Adverse effect of insulin and oral hypoglycemic [antidiabetic] drugs, initial encounter; E87.6 Hypokalemia; J44.9 Chronic obstructive pulmonary disease, unspecified; I10 Essential (primary) hypertension; K21.9 Gastro-esophageal reflux disease without esophagitis; Q05.9 Spina bifida, unspecified; G24.01 Drug induced subacute dyskinesia; G43.909 Migraine, unspecified, not intractable, without status migrainosus; M48.00 Spinal stenosis, site unspecified; L98.9 Disorder of the skin and subcutaneous tissue, unspecified; F31.9 Bipolar disorder, unspecified; F90.9 Attention-deficit hyperactivity disorder, unspecified type; F17.200 Nicotine dependence, unspecified, uncomplicated; Z91.14 Patient's other noncompliance with medication regimen; Z79.84 Long term (current) use of oral hypoglycemic drugs; Z79.51 Long term (current) use of inhaled steroids; Z79.4 Long term (current) use of insulin; Z79.899 Other long term (current) drug therapy; Z91.048 Other nonmedicinal substance allergy status; Z91.81 History of falling; Z98.890 Other specified postprocedural states; Z80.9 Family history of malignant neoplasm, unspecified
CPT/HCPCS: 96376; 96365; 96366; 96372; 99291; 94640 ×2; G0378 ×2; J2354; J1644; 36415; 70450; 71046; 80048; 80053; 80306; 80320; 81001; 83036; 84439; 84443; 85025; 85610; 85730; 93005; 94760

== ENCOUNTER 2021-12-18 22:53 | Inpatient (IN) | payer MEDICARE, OTHER ==
[2021-12-18] MEDS ORDERED: IPRATROPIUM-ALBUTEROL 3 ML NEB INHALATION STA ×3 (23:03→23:24)
[2021-12-18] MEDS ORDERED: SODIUM CHLORIDE 0.9% 500 ML 500 ML IV STA (23:03)
[2021-12-18] MEDS ORDERED: methylPREDNISolone SOD SUCCI 125 MG/2 ML VIAL IV STA (23:03)
[2021-12-18] MEDS ORDERED: MAGNESIUM SULFATE-D5W PMX 1 GM in DEXTROSE/WATER 1 100ML.BAG IVPB STA (23:03)
[2021-12-18] MEDS ORDERED: LORazepam 2 MG/ML INJ IV STA (23:13)
--- NOTE | 2021-12-18 23:21 | ED ---
General Adult HPI - General Chief complaint: Shortness of Breath Stated complaint: SUREKHA Time Seen by Provider: 12/18/21 23:05 Source: patient, RN notes reviewed, old records reviewed Mode of arrival: wheelchair Limitations: no limitations - History of Present Illness Initial comments: Patient is a 46-year-old male with past medical history remarkable for COPD, diabetes who was recently discharged after hypoglycemic episodes who presents emergency Department complaining of shortness of breath times one day. Denies nasal congestion. Patient does endorse a mild productive cough. Typically does not cough at baseline.. States his been having shortness breath all day with minimal responsiveness 2 breathing treatments. Has required intubation the past for his COPD. Denies chest pain. Denies abdominal pain, nausea, vomiting. His no other acute complaints at this time. He was brought from triage to trauma bay 2 for further evaluation.Patient still smokes. - Related Data Home Medications Medication Instructions Recorded Confirmed Albuterol Sulfate [Ventolin HFA] 2 puff INHALATION RT-QID PRN 12/31/20 12/16/21 Atorvastatin Calcium [Lipitor] 20 mg PO HS 12/31/20 12/16/21 Empagliflozin [Jardiance] 25 mg PO DAILY 12/31/20 12/16/21 Pioglitazone [Actos] 30 mg PO DAILY 12/31/20 12/16/21 metFORMIN HCL [Glucophage] 1,000 mg PO BID 12/31/20 12/16/21 fluvoxaMINE [Luvox] 50 mg PO DAILY 07/17/21 12/16/21 fluvoxaMINE [Luvox] 100 mg PO HS 07/17/21 12/16/21 Metoprolol Tartrate [Lopressor] 25 mg PO BID 12/16/21 12/16/21 Nicotine 7Mg/24Hr Patch [Habitrol] 1 patch TRANSDERM DAILY PRN 12/16/21 12/16/21 Potassium Chloride ER [K-Dur 20] 20 meq PO DAILY 12/16/21 12/16/21 QUEtiapine [SEROquel] 50 mg PO HS 12/16/21 12/16/21 Valbenazine Tosylate [Ingrezza 1 cap PO DAILY 12/16/21 12/16/21 40/80 MG Initiation Pack] lisinopriL [Zestril] 2.5 mg PO DAILY 12/16/21 12/16/21 Previous Rx's Medication Instructions Recorded Acetaminophen Tab [Tylenol] 650 mg PO Q6HR PRN tab 08/03/21 Budesonide-Formot 160-4.5 Mcg 2 puff INHALATION RT-BID each 08/03/21 [Symbicort 160-4.5 Mcg Inhaler] Furosemide [Lasix] 40 mg PO DAILY tab 08/03/21 Ipratropium-Albuterol Nebulize 3 ml INHALATION RT-Q2H PRN each 08/03/21 [Duoneb 0.5 mg-3 mg/3 ml Soln] Ipratropium-Albuterol Nebulize 3 ml INHALATION RT-QID each 08/03/21 [Duoneb 0.5 mg-3 mg/3 ml Soln] Allergies Allergy/AdvReac Type Severity Reaction Status Date / Time metals Allergy Rash/Hives, Uncoded 12/18/21 23:09 swelling Review of Systems ROS Statement: Those systems with pertinent positive or pertinent negative responses have been documented in the HPI. Review of Systems: CONST: Denies fever EYES: Denies blurry vision ENT: Denies nasal congestion C/V: Denies Chest pain RESP: Endorses shortness of breath GI: Denies abdominal pain : Denies dysuria SKIN: Denies rash. MSK: Denies joint pain. NEURO: Denies headache ROS Other: All systems not noted in ROS Statement are negative. Past Medical History Past Medical History: Asthma, COPD, Diabetes Mellitus, GERD/Reflux, Hypertension, Skin Disorder Additional Past Medical History / Comment(s): hx spina bifida, spinal stenosis, pancreatitis. scrotal wound (to start on antibiotics 10/31/15), migraines, uses wheelchair-can ambulate but does fall at times. Tardive Dyskinesia History of Any Multi-Drug Resistant Organisms: None Reported Past Surgical History: Back Surgery Additional Past Surgical History / Comment(s): back surgery- 3 rods, 4 screws Past Anesthesia/Blood Transfusion Reactions: No Reported Reaction Past Psychological History: ADD/ADHD, Bipolar Smoking Status: Current every day smoker Past Alcohol Use History: None Reported Past Drug Use History: None Reported - Past Family History Mother Family Medical History: Cancer Father Family Medical History: Cancer General Exam - General Exam Comments Initial Comments: General: Appears in moderate respiratory distress. Has increased work of breathing. Saturations appear adequate. HEAD: Normal with no signs of head trauma. EYES: PERRLA, EOMI, conjunctiva normal, no discharge. ENT: Hearing grossly intact, normal oropharynx. RESPIRATORY: Reduced breath sounds bilaterally, tight lungs. Mild end expiratory wheezing present but likely secondary to lungs being tight at this time. COPD exacerbation. Increased work of breathing. Mild hypoxia on room air. C/V: Tachycardic with a regular rhythm. S1 and S2 auscultated. Peripheral edema is not present. Peripheral pulses 2+ and intact throughout. ABD: Abd is soft, nontender, nondistended EXT: Normal range of motion, no obvious deformity SKIN: No rashes or lesions observed on exposed skin. NEURO: Alert and oriented 4. Patient does have tardive dyskinesia baseline which he currently has. Limitations: no limitations Course Vital Signs 12/18/21 12/18/21 12/18/21 22:56 23:11 23:14 Temperature 98.3 F Pulse Rate 112 H 108 H Respiratory 34 H Rate Blood Pressure O2 Sat by Pulse 93 L Oximetry Fraction of 30 Inspired Oxygen (FIO2) 12/18/21 12/18/21 12/18/21 23:19 23:27 23:37 Temperature Pulse Rate 114 H 118 H 101 H Respiratory 32 H Rate Blood Pressure O2 Sat by Pulse 98 Oximetry Fraction of Inspired Oxygen (FIO2) 12/19/21 00:45 Temperature Pulse Rate 82 Respiratory 26 H Rate Blood Pressure 123/87 O2 Sat by Pulse 97 Oximetry Fraction of Inspired Oxygen (FIO2) Medical Decision Making - Medical Decision Making Based on on patient's presentation and physical exam, does appear he is having a COPD exacerbation. We will obtain a cardiopulmonary workup. Respiratory was called immediately, and patient will be started on BiPAP. He will receive IV steroids, multiple breathing treatments, IV magnesium. He was in agreement with this plan.Patient also has a history of anxiety and appears to be anxious. Will be given a small dose of Ativan. Vital signs are remarkable for increased work of breathing and mild hypoxia. EKG shows no signs of acute ischemia. Chest x-ray shows no acute cardiopulmonary process. Laboratory studies are remarkable for leukocytosis of 19.7 with no clear etiology. Possible from bronchitis but uncertain. Blood cultures will be obtained and sent. Remainder of the labs are remarkable for a slightly elevated carbon dioxide at 32 above his baseline. Magnesium is slightly decreased 1.4 but he did receive supplementation. Troponin is undetectable. BNP is unremarkable. Covid influenza negative. Urine is pending at this time. On reevaluation, patient's breathing is improved. He will receive an additional breathing treatment and subsequently reevaluated. At this time, patient's breathing continues to improve. Work of breathing has improved. Patient remains not hypoxic. Lungs appear to be opening up as they are more wheezy at this time, we will continue every hour breathing treatments as well as twice a day dosing of steroids and BiPAP therapy. Him and his family members were in agreement with this plan. He will be admitted to the hospital. I will start him on doxycycline empirically for bronchitis. Patient was in agreement this plan. Pulmonology was consulted for evaluation the morning. I spoke with the admitting team, SHREYA Burns of [facility] who accepted the patient. Patient was admitted under Dr. Fuller. - Lab Data Result diagrams: 12/18/21 23:08 12/18/21 23:08 Lab Results 12/18/21 12/18/21 12/18/21 Range/Units 23:08 23:08 23:08 WBC 19.7 H (3.8-10.6) k/uL RBC 5.24 (4.30-5.90) m/uL Hgb 16.8 (13.0-17.5) gm/dL Hct 49.7 (39.0-53.0) % MCV 95.0 (80.0-100.0) fL MCH 32.0 (25.0-35.0) pg MCHC 33.7 (31.0-37.0) g/dL RDW 13.7 (11.5-15.5) % Plt Count 252 (150-450) k/uL MPV 7.6 Neutrophils % 83 % Lymphocytes % 10 % Monocytes % 5 % Eosinophils % 1 % Basophils % 0 % Neutrophils # 16.3 H (1.3-7.7) k/uL Lymphocytes # 1.9 (1.0-4.8) k/uL Monocytes # 1.1 H (0-1.0) k/uL Eosinophils # 0.2 (0-0.7) k/uL Basophils # 0.1 (0-0.2) k/uL PT 11.3 (9.0-12.0) sec INR 1.0 (<1.2) APTT 26.3 (22.0-30.0) sec VBG pH (7.31-7.41) VBG pCO2 (37-51) mmHg VBG HCO3 (24-28) mmol/L Sodium 132 L (137-145) mmol/L Potassium 3.6 (3.5-5.1) mmol/L Chloride 89 L (98-107) mmol/L Carbon Dioxide 32 H (22-30) mmol/L Anion Gap 11 mmol/L BUN 8 L (9-20) mg/dL Creatinine 0.38 L (0.66-1.25) mg/dL Est GFR (CKD-EPI)AfAm >90 (>60 ml/min/1.73 sqM) Est GFR (CKD-EPI)NonAf >90 (>60 ml/min/1.73 sqM) Glucose 124 H (74-99) mg/dL Plasma Lactic Acid Ashwin (0.7-2.0) mmol/L Calcium 8.8 (8.4-10.2) mg/dL Magnesium 1.4 L (1.6-2.3) mg/dL Total Bilirubin 0.6 (0.2-1.3) mg/dL AST 41 (17-59) U/L ALT 22 (4-49) U/L Alkaline Phosphatase 116 (38-126) U/L Troponin I (0.000-0.034) ng/mL NT-Pro-B Natriuret Pep pg/mL Total Protein 6.2 L (6.3-8.2) g/dL Albumin 4.0 (3.5-5.0) g/dL Urine Color Urine Appearance (Clear) Urine pH (5.0-8.0) Ur Specific [place] (1.001-1.035) Urine Protein (Negative) Urine Glucose (UA) (Negative) Urine Ketones (Negative) Urine Blood (Negative) Urine Nitrite (Negative) Urine Bilirubin (Negative) Urine Urobilinogen (<2.0) mg/dL Ur Leukocyte Esterase (Negative) Coronavirus (PCR) (Not Detectd) Influenza Type A RNA (Not Detectd) Influenza Type B (PCR) (Not Detectd) 12/18/21 12/18/21 12/18/21 Range/Units 23:08 23:08 23:08 WBC (3.8-10.6) k/uL RBC (4.30-5.90) m/uL Hgb (13.0-17.5) gm/dL Hct (39.0-53.0) % MCV (80.0-100.0) fL MCH (25.0-35.0) pg MCHC (31.0-37.0) g/dL RDW (11.5-15.5) % Plt Count (150-450) k/uL MPV Neutrophils % % Lymphocytes % % Monocytes % % Eosinophils % % Basophils % % Neutrophils # (1.3-7.7) k/uL Lymphocytes # (1.0-4.8) k/uL Monocytes # (0-1.0) k/uL Eosinophils # (0-0.7) k/uL Basophils # (0-0.2) k/uL PT (9.0-12.0) sec INR (<1.2) APTT (22.0-30.0) sec VBG pH (7.31-7.41) VBG pCO2 (37-51) mmHg VBG HCO3 (24-28) mmol/L Sodium (137-145) mmol/L Potassium (3.5-5.1) mmol/L Chloride (98-107) mmol/L Carbon Dioxide (22-30) mmol/L Anion Gap mmol/L BUN (9-20) mg/dL Creatinine (0.66-1.25) mg/dL Est GFR (CKD-EPI)AfAm (>60 ml/min/1.73 sqM) Est GFR (CKD-EPI)NonAf (>60 ml/min/1.73 sqM) Glucose (74-99) mg/dL Plasma Lactic Acid Ashwin 1.4 (0.7-2.0) mmol/L Calcium (8.4-10.2) mg/dL Magnesium (1.6-2.3) mg/dL Total Bilirubin (0.2-1.3) mg/dL AST (17-59) U/L ALT (4-49) U/L Alkaline Phosphatase (38-126) U/L Troponin I <0.012 (0.000-0.034) ng/mL NT-Pro-B Natriuret Pep 570 pg/mL Total Protein (6.3-8.2) g/dL Albumin (3.5-5.0) g/dL Urine Color Urine Appearance (Clear) Urine pH (5.0-8.0) Ur Specific [place] (1.001-1.035) Urine Protein (Negative) Urine Glucose (UA) (Negative) Urine Ketones (Negative) Urine Blood (Negative) Urine Nitrite (Negative) Urine Bilirubin (Negative) Urine Urobilinogen (<2.0) mg/dL Ur Leukocyte Esterase (Negative) Coronavirus (PCR) (Not Detectd) Influenza Type A RNA (Not Detectd) Influenza Type B (PCR) (Not Detectd) 12/18/21 12/18/21 12/18/21 Range/Units 23:16 23:28 23:28 WBC (3.8-10.6) k/uL RBC (4.30-5.90) m/uL Hgb (13.0-17.5) gm/dL Hct (39.0-53.0) % MCV (80.0-100.0) fL MCH (25.0-35.0) pg MCHC (31.0-37.0) g/dL RDW (11.5-15.5) % Plt Count (150-450) k/uL MPV Neutrophils % % Lymphocytes % % Monocytes % % Eosinophils % % Basophils % % Neutrophils # (1.3-7.7) k/uL Lymphocytes # (1.0-4.8) k/uL Monocytes # (0-1.0) k/uL Eosinophils # (0-0.7) k/uL Basophils # (0-0.2) k/uL PT (9.0-12.0) sec INR (<1.2) APTT (22.0-30.0) sec VBG pH 7.38 (7.31-7.41) VBG pCO2 62 H (37-51) mmHg VBG HCO3 36 H (24-28) mmol/L Sodium (137-145) mmol/L Potassium (3.5-5.1) mmol/L Chloride (98-107) mmol/L Carbon Dioxide (22-30) mmol/L Anion Gap mmol/L BUN (9-20) mg/dL Creatinine (0.66-1.25) mg/dL Est GFR (CKD-EPI)AfAm (>60 ml/min/1.73 sqM) Est GFR (CKD-EPI)NonAf (>60 ml/min/1.73 sqM) Glucose (74-99) mg/dL Plasma Lactic Acid Ashwin (0.7-2.0) mmol/L Calcium (8.4-10.2) mg/dL Magnesium (1.6-2.3) mg/dL Total Bilirubin (0.2-1.3) mg/dL AST (17-59) U/L ALT (4-49) U/L Alkaline Phosphatase (38-126) U/L Troponin I (0.000-0.034) ng/mL NT-Pro-B Natriuret Pep pg/mL Total Protein (6.3-8.2) g/dL Albumin (3.5-5.0) g/dL Urine Color Urine Appearance (Clear) Urine pH (5.0-8.0) Ur Specific [place] (1.001-1.035) Urine Protein (Negative) Urine Glucose (UA) (Negative) Urine Ketones (Negative) Urine Blood (Negative) Urine Nitrite (Negative) Urine Bilirubin (Negative) Urine Urobilinogen (<2.0) mg/dL Ur Leukocyte Esterase (Negative) Coronavirus (PCR) Not Detected (Not Detectd) Influenza Type A RNA Not Detected (Not Detectd) Influenza Type B (PCR) Not Detected (Not Detectd) 12/19/21 Range/Units 00:54 WBC (3.8-10.6) k/uL RBC (4.30-5.90) m/uL Hgb (13.0-17.5) gm/dL Hct (39.0-53.0) % MCV (80.0-100.0) fL MCH (25.0-35.0) pg MCHC (31.0-37.0) g/dL RDW (11.5-15.5) % Plt Count (150-450) k/uL MPV Neutrophils % % Lymphocytes % % Monocytes % % Eosinophils % % Basophils % % Neutrophils # (1.3-7.7) k/uL Lymphocytes # (1.0-4.8) k/uL Monocytes # (0-1.0) k/uL Eosinophils # (0-0.7) k/uL Basophils # (0-0.2) k/uL PT (9.0-12.0) sec INR (<1.2) APTT (22.0-30.0) sec VBG pH (7.31-7.41) VBG pCO2 (37-51) mmHg VBG HCO3 (24-28) mmol/L Sodium (137-145) mmol/L Potassium (3.5-5.1) mmol/L Chloride (98-107) mmol/L Carbon Dioxide (22-30) mmol/L Anion Gap mmol/L BUN (9-20) mg/dL Creatinine (0.66-1.25) mg/dL Est GFR (CKD-EPI)AfAm (>60 ml/min/1.73 sqM) Est GFR (CKD-EPI)NonAf (>60 ml/min/1.73 sqM) Glucose (74-99) mg/dL Plasma Lactic Acid Ashwin (0.7-2.0) mmol/L Calcium (8.4-10.2) mg/dL Magnesium (1.6-2.3) mg/dL Total Bilirubin (0.2-1.3) mg/dL AST (17-59) U/L ALT (4-49) U/L Alkaline Phosphatase (38-126) U/L Troponin I (0.000-0.034) ng/mL NT-Pro-B Natriuret Pep pg/mL Total Protein (6.3-8.2) g/dL Albumin (3.5-5.0) g/dL Urine Color Colorless Urine Appearance Clear (Clear) Urine pH 6.5 (5.0-8.0) Ur Specific [place] 1.003 (1.001-1.035) Urine Protein Negative (Negative) Urine Glucose (UA) 4+ H (Negative) Urine Ketones Negative (Negative) Urine Blood Negative (Negative) Urine Nitrite Negative (Negative) Urine Bilirubin Negative (Negative) Urine Urobilinogen <2.0 (<2.0) mg/dL Ur Leukocyte Esterase Negative (Negative) Coronavirus (PCR) (Not Detectd) Influenza Type A RNA (Not Detectd) Influenza Type B (PCR) (Not Detectd) - EKG Data -: EKG Interpreted by Me EKG Comments: 12-lead Electrocardiogram Interpretation Note EKG was reviewed and interpreted by myself. 12-lead ECG performed at 0034 is interpreted by me as revealing normal sinus rhythm at a rate of 92 beats per minute. [place] is normal. [place] interval is 138 ms, QRS duration is 82 ms, QTc is 423 ms.. There were no ST or T wave abnormalities to suggest myocardial ischemia or injury. R wave progression across the precordium was satisfactory. By my interpretation this EKG is non-diagnostic for acute ischemia. Critical Care Time Critical Care Time: Yes Total Critical Care Time: 35 Critical Care Time: Upon my evaluation, this patient had a high probability of imminent or life- threatening deterioration due to multiple re-evaluations for COPD exacerbation requiring BiPAP, which required my direct attention, intervention, and personal management. I have personally provided 35 minutes of critical care time exclusive of time spent on separately billable procedures. Time includes review of laboratory data, radiology results, discussion with consultants, and monitoring for potential decompensation. Interventions were performed as documented in my note. Disposition Clinical Impression: COPD exacerbation, Bronchitis Disposition: ADMITTED IP TO THIS HOSP Condition: Stable Referrals: Anne Sosa MD [Primary Care Provider] - 1-2 days Time of Disposition: 00:35
[2021-12-18 23:25] LABS: Basophils # (A) 0.1 k/uL (0-0.2); Basophils % (A) 0 %; Eosinophils # (A) 0.2 k/uL (0-0.7); Eosinophils % (A) 1 %; HCT 49.7 % (39.0-53.0); HGB 16.8 gm/dL (13.0-17.5); Lymphocytes # (A) 1.9 k/uL (1.0-4.8); Lymphocytes % (A) 10 %; MCHC 33.7 g/dL (31.0-37.0); Mean Platelet Volume 7.6; Monocytes # (A) 1.1 k/uL (0-1.0); Monocytes % (A) 5 %; Neutrophils # (A) 16.3 k/uL (1.3-7.7); Neutrophils % (A) 83 %; Platelet Count 252 k/uL (150-450); RBC 5.24 m/uL (4.30-5.90); RDW 13.7 % (11.5-15.5); WBC 19.7 k/uL (3.8-10.6)
[2021-12-18 23:39] LABS: ALT 22 U/L (4-49); AST 41 U/L (17-59); African American GFR (CKD) >90 (>60 ml/min/1.73 sqM); Alkaline Phosphatase 116 U/L (38-126); Anion Gap 11 mmol/L; Blood Urea Nitrogen 8 mg/dL (9-20); Calcium 8.8 mg/dL (8.4-10.2); Carbon Dioxide 32 mmol/L (22-30); Chloride 89 mmol/L (98-107); Glucose 124 mg/dL (74-99); Magnesium 1.4 mg/dL (1.6-2.3); Non-African American GFR(CKD) >90 (>60 ml/min/1.73 sqM); Potassium 3.6 mmol/L (3.5-5.1); Sodium 132 mmol/L (137-145); Total Bilirubin 0.6 mg/dL (0.2-1.3); Total Protein 6.2 g/dL (6.3-8.2)
[2021-12-18 23:44] LABS: Partial Thromboplastin Time 26.3 sec (22.0-30.0); Prothrombin Time 11.3 sec (9.0-12.0)
--- NOTE | 2021-12-19 00:36 | XR ---
EXAMINATION TYPE: XR chest 1V portable DATE OF EXAM: 12/19/2021 COMPARISON: 12/16/2021 HISTORY: Short of breath TECHNIQUE: Single view FINDINGS: There is no heart failure nor confluent-like infiltrate. Costophrenic angles are clear. The re are no hilar masses. There are chest leads. IMPRESSION: No active cardiopulmonary disease.
[2021-12-19] MEDS ORDERED: NALOXONE 0.4 MG/ML 1 ML VIAL IV PRN (00:55)
[2021-12-19 01:02] LABS: Appearance,Urine Clear (Clear); Bilirubin,Urine Negative (Negative); Blood,Urine Negative (Negative); Color,Urine Colorless; Glucose,Urine (UA) 4+ (Negative); Ketones,Urine Negative (Negative); Leukocyte Esterase,Urine Negative (Negative); Nitrite,Urine Negative (Negative); PH, Urine 6.5 (5.0-8.0); Protein,Urine Negative (Negative); Specific Gravity,Urine 1.003 (1.001-1.035); Urobilinogen,Urine <2.0 mg/dL (<2.0)
[2021-12-19] MEDS: DOXYCYCLINE 100 MG in SODIUM CHLORIDE 0.9% 100 ML IVPB SCH ×2 (01:27→13:44)
[2021-12-19] MEDS: SODIUM CHLORIDE 0.9% 1,000 ML IV SCH ×2 (01:28→08:38)
[2021-12-19 01:44] LABS: VBG PH 7.38 (7.31-7.41)
[2021-12-19] MEDS: IPRATROPIUM-ALBUTEROL 3 ML NEB INHALATION PRN ×4 (04:27→23:44)
[2021-12-19 06:31] LABS: Glucose,Whole Blood 134 mg/dL (70-110)
[2021-12-19] MEDS ORDERED: DEXTROSE 50% SYRINGE 50 ML IVP PRN ×2 (07:45)
[2021-12-19] MEDS: METOPROLOL TARTRATE 25 MG TAB PO SCH ×2 (08:36→20:56)
[2021-12-19] MEDS: metFORMIN 500 MG TAB PO SCH ×2 (08:36→20:56)
[2021-12-19] MEDS: HEPARIN SODIUM,PORCINE/PF 5,000 UNIT/0.5 ML SYRINGE SQ SCH ×2 (08:36→15:58)
[2021-12-19] MEDS: FAMOTIDINE 20 MG/2 ML VIAL IV SCH ×2 (08:36→20:56)
[2021-12-19] MEDS: FUROSEMIDE 40 MG TAB PO SCH (08:36)
[2021-12-19] MEDS: DAPAGLIFLOZIN PROPANEDIOL 10 MG TABLET PO SCH (08:37)
[2021-12-19] MEDS: SYMBICORT 160-4.5 MCG INHALER INHALATION SCH ×2 (08:43→21:10)
[2021-12-19] MEDS: PIOGLITAZONE 30 MG TAB PO SCH (08:44)
[2021-12-19] MEDS ORDERED: methylPREDNISolone SOD SUCCI 40 MG/ML 1 ML VIAL IV SCH (09:00)
--- NOTE | 2021-12-19 09:33 | P.HPIM ---
History of Present Illness This is a pleasant 46 years old male with past medical history of diabetes mellitus, hypertension, hyperlipidemia, migraine, using a wheelchair, history of Tardive Dyskinesia, chronic back pain, ADD/ADH D, nicotine dependence and bi polar, anxiety on multiple medication Patient presents because of dyspnea, progressively worse over the last 2 days with no chest pain or coughing as he states. No other GI or urinary complaints, no headache or weakness or numbness He still smokes about 1 pack per day and he was consulted and agrees to quit and he wants nicotine patch. He denies alcohol or illicit drugs. Patient currently on BiPAP and he talks with the BiPAP mask. He denies home oxygen on steroids use at home. His executive receptionist is Dr. Donovan and his PCP is Dr. lei Patient is afebrile and vitals are stable he is tachypneic with a rate of 121- 26. Labs showed leukocytosis of 19.7 K INR is normal 1.0 Venous. 7.3 and pCO2 62 which is elevated Sodium 132. Creatinine normal as well as the risks of BMP and liver enzymes and bilirubin. Magnesium slightly low at 1.4. Urine analysis is non-suspicious of infection. Virus profile of cough it and influenza is negative. EKG showing normal sinus rhythm at [address]-T changes Chest x-ray: No acute cardiopulmonary disease Patient is already started on a breathing treatment, doxycycline and IV Solu- Medrol and normal saline Review of Systems Review of systems CONSTITUTIONAL: No fever, no malaise, no fatigue. HEENT: No recent visual problems or hearing problems. Denied any sore throat. CARDIOVASCULAR: No orthopnea, PND, no palpitations, no syncope. PULMONARY: No chest wall tenderness, no hemoptysis. GASTROINTESTINAL: No diarrhea, no nausea, no vomiting, no abdominal pain. Normoactive bowel sounds. NEUROLOGICAL: No headaches, no weakness, no numbness. HEMATOLOGICAL: Denies any bleeding or petechiae. GENITOURINARY: Denies any burning micturition, frequency, or urgency. MUSCULOSKELETAL/RHEUMATOLOGICAL: Denies any joint pain, swelling, or any muscle pain. ENDOCRINE: Denies any polyuria or polydipsia. Past Medical History Past Medical History: Asthma, COPD, Diabetes Mellitus, GERD/Reflux, Hypertension, Skin Disorder Additional Past Medical History / Comment(s): hx spina bifida, spinal stenosis, pancreatitis. scrotal wound (to start on antibiotics 10/31/15), migraines, uses wheelchair-can ambulate but does fall at times. Tardive Dyskinesia History of Any Multi-Drug Resistant Organisms: None Reported Past Surgical History: Back Surgery Additional Past Surgical History / Comment(s): back surgery- 3 rods, 4 screws Past Anesthesia/Blood Transfusion Reactions: No Reported Reaction Past Psychological History: ADD/ADHD, Bipolar Smoking Status: Current every day smoker Past Alcohol Use History: None Reported Past Drug Use History: None Reported - Past Family History Mother Family Medical History: Cancer Father Family Medical History: Cancer Medications and Allergies Home Medications Medication Instructions Recorded Confirmed Type Albuterol Sulfate [Ventolin HFA] 2 puff INHALATION RT-QID PRN 12/31/20 12/19/21 History Atorvastatin Calcium [Lipitor] 20 mg PO HS 12/31/20 12/19/21 History Empagliflozin [Jardiance] 25 mg PO DAILY 12/31/20 12/19/21 History Pioglitazone [Actos] 30 mg PO DAILY 12/31/20 12/19/21 History metFORMIN HCL [Glucophage] 1,000 mg PO BID 12/31/20 12/19/21 History fluvoxaMINE [Luvox] 50 mg PO DAILY 07/17/21 12/19/21 History fluvoxaMINE [Luvox] 100 mg PO HS 07/17/21 12/19/21 History Budesonide-Formot 160-4.5 Mcg 2 puff INHALATION RT-BID each 08/03/21 12/19/21 Rx [Symbicort 160-4.5 Mcg Inhaler] Furosemide [Lasix] 40 mg PO DAILY tab 08/03/21 12/19/21 Rx Ipratropium-Albuterol Nebulize 3 ml INHALATION RT-Q2H PRN each 08/03/21 12/19/21 Rx [Duoneb 0.5 mg-3 mg/3 ml Soln] Ipratropium-Albuterol Nebulize 3 ml INHALATION RT-QID each 08/03/21 12/19/21 Rx [Duoneb 0.5 mg-3 mg/3 ml Soln] Metoprolol Tartrate [Lopressor] 25 mg PO BID 12/16/21 12/19/21 History Nicotine 7Mg/24Hr Patch [Habitrol] 1 patch TRANSDERM DAILY PRN 12/16/21 12/19/21 History Potassium Chloride ER [K-Dur 20] 20 meq PO DAILY 12/16/21 12/19/21 History QUEtiapine [SEROquel] 50 mg PO HS 12/16/21 12/19/21 History Valbenazine Tosylate [Ingrezza 1 cap PO DAILY 12/16/21 12/19/21 History 40/80 MG Initiation Pack] lisinopriL [Zestril] 2.5 mg PO DAILY 12/16/21 12/19/21 History Acetaminophen Tab [Tylenol] 650 mg PO Q6H PRN 12/19/21 12/19/21 History Allergies Allergy/AdvReac Type Severity Reaction Status Date / Time metals Allergy Rash/Hives, Uncoded 12/19/21 07:27 swelling Physical Exam Vitals: Vital Signs Temp Pulse Pulse Resp BP BP Pulse Ox 12/19/21 04:40 92 12/19/21 04:27 90 12/19/21 04:03 12/19/21 04:00 98.0 F 84 21 124/69 98 12/19/21 02:00 26 H 12/19/21 01:16 81 26 H 143/78 92 L 12/19/21 00:45 82 26 H 123/87 97 12/18/21 23:37 101 H 12/18/21 23:27 118 H 12/18/21 23:19 114 H 32 H 98 12/18/21 23:14 12/18/21 23:11 108 H 12/18/21 22:56 98.3 F 112 H 34 H 93 L FiO2 12/19/21 04:40 12/19/21 04:27 12/19/21 04:03 30 12/19/21 04:00 30 12/19/21 02:00 12/19/21 01:16 30 12/19/21 00:45 12/18/21 23:37 12/18/21 23:27 12/18/21 23:19 12/18/21 23:14 30 12/18/21 23:11 12/18/21 22:56 Intake and Output 12/18/21 12/19/21 12/19/21 22:59 06:59 14:59 Intake Total 200 Output Total 1500 Balance -1300 Intake: Intake, IV Titration 200 Amount Doxycycline 100 mg In 100 Sodium Chloride 0.9% 100 ml @ 100 mls/hr IVPB Q12H [facility] Rx#:[id number] Magnesium Sulfate-D5w Pmx 100 1 gm In Dextrose/Water 1 100ml.bag @ 100 mls/hr IVPB ONCE STA Rx#: [id number] Output: Urine 1500 Other: Voiding Method Urinal Weight 77.111 kg 77.111 kg GENERAL: The patient is alert and oriented x3, not in any acute distress. Well developed, well nourished. HEENT: Pupils are round and equally reacting to light. EOMI. No scleral icterus. No conjunctival pallor. Normocephalic, atraumatic. No pharyngeal erythema. No thyromegaly. CARDIOVASCULAR: S1 and S2 present. No murmurs, rubs, or gallops. --PULMONARY: Chest is clear to auscultation, minimal wheezing . No crackles. Severely limited air entry on both sides ABDOMEN: Soft, nontender, nondistended, normoactive bowel sounds. No palpable organomegaly. MUSCULOSKELETAL: No joint swelling or deformity. EXTREMITIES: No cyanosis, clubbing, or pedal edema. NEUROLOGICAL: Gross neurological examination did not reveal any focal deficits. SKIN: No rashes. no petechiae. Results CBC & Chem 7: 12/18/21 23:08 12/18/21 23:08 Labs: Abnormal Lab Results - Last 24 Hours (Table) 12/18/21 12/18/21 12/18/21 Range/Units 23:08 23:08 23:16 WBC 19.7 H (3.8-10.6) k/uL Neutrophils # 16.3 H (1.3-7.7) k/uL Monocytes # 1.1 H (0-1.0) k/uL VBG pCO2 62 H (37-51) mmHg VBG HCO3 36 H (24-28) mmol/L Sodium 132 L (137-145) mmol/L Chloride 89 L (98-107) mmol/L Carbon Dioxide 32 H (22-30) mmol/L BUN 8 L (9-20) mg/dL Creatinine 0.38 L (0.66-1.25) mg/dL Glucose 124 H (74-99) mg/dL POC Glucose (mg/dL) (70-110) mg/dL Magnesium 1.4 L (1.6-2.3) mg/dL Total Protein 6.2 L (6.3-8.2) g/dL Urine Glucose (UA) (Negative) 12/19/21 12/19/21 Range/Units 00:54 06:29 WBC (3.8-10.6) k/uL Neutrophils # (1.3-7.7) k/uL Monocytes # (0-1.0) k/uL VBG pCO2 (37-51) mmHg VBG HCO3 (24-28) mmol/L Sodium (137-145) mmol/L Chloride (98-107) mmol/L Carbon Dioxide (22-30) mmol/L BUN (9-20) mg/dL Creatinine (0.66-1.25) mg/dL Glucose (74-99) mg/dL POC Glucose (mg/dL) 134 H (70-110) mg/dL Magnesium (1.6-2.3) mg/dL Total Protein (6.3-8.2) g/dL Urine Glucose (UA) 4+ H (Negative) Thrombosis Risk Factor Assmnt - Choose All That Apply Any of the Below Risk Factors Present?: Yes Each Factor Represents 1 point: Abnormal pulmonary function (COPD), Age 41-60 years Thrombosis Risk Factor Assessment Total Risk Factor Score: 2 Thrombosis Risk Factor Assessment Level: Low Risk Assessment and Plan Assessment: Acute COPD exacerbation Acute hypoxic respiratory failure Hypertension Type 2 diabetes mellitus Hyperlipidemia History of bipolar and tardive dyskinesia Nicotine dependence Plan: This is a pleasant 46 years old male with COPD exacerbation Continue with steroids Continue with a bronchodilator Continue with oxygen as needed Pulmonary consult Continue with metformin, farxiga , and Actos and insulin sliding scale Given patient significant psych history and she will be on steroids she is at- risk of worsening oversight gastric symptoms therefore she will need close monitoring Labs and medication were reviewed.. Continue same treatment. Continue with symptomatic treatment. Resume home medication. Monitor lytes and vitals. DVT and GI prophylaxis. Further recommendations as per clinical course of the patient DVT prophylaxis: Subcutaneous heparin GI Prophylaxis: Pepcid Prognosis is guarded
[2021-12-19] MEDS ORDERED: ALPRAZolam 0.5 MG TAB PO STA (11:13)
[2021-12-19] MEDS: NICOTINE 21MG/24HR PATCH TRANSDERM SCH (11:23)
[2021-12-19 11:33] LABS: Glucose,Whole Blood 257 mg/dL (70-110)
[2021-12-19] MEDS: INSULIN ASPART (NovoLOG) 100 UNIT/ML VIAL SQ SCH ×3 (11:36→20:56)
[2021-12-19] MEDS: [UNRECOGNIZED DRUG - OTHER] PO SCH (12:22)
--- NOTE | 2021-12-19 12:57 | P.CNPUL ---
History of Present Illness Consult date: 12/19/21 Requesting physician: Jr Fuller Reason for consult: dyspnea, COPD Chief complaint: Shortness of breath History of present illness: This is a pleasant 46-year-old male patient with a known history of bipolar disorder, diabetes mellitus, hypertension, spina bifida, ADHD, chronic and ongoing tobacco dependence. He does have mild chronic obstructive pulmonary disease with an FEV1 value of 77% of predicted. He follows with Dr. Espinoza in our office. He is maintained on Symbicort, albuterol. He presented here to the emergency room with rather sudden onset of shortness of breath, gasping to get his air. He was placed on BiPAP. Chest x-ray revealed no acute pulmonary process. EKG reveals sinus rhythm without any significant ST or T wave abnormalities. White count 19.7. Hemoglobin 16.8. Sodium 132. Potassium 3.6. Bicarb 32. BUN 8. Creatinine 0.38. Glucose 124. AST 41. ALT 22. Troponin negative times one. ProBNP 570. Urinalysis with 4+ glucose. Current on a virus not detected. Influenza screen negative. Venous carbon dioxide 62. He is seen today in consultation on the selective care unit. Currently on BiPAP 14/5 and 30% FiO2. Normal saline at 75 ML's per hour. He is initiated on Symbicort, DuoNeb inhalations, IV Solu-Medrol. He is feeling a bit better today compared to yesterday. Still dyspneic with conversation. Dyspneic with exertion. Review of Systems REVIEW OF SYSTEMS: CONSTITUTIONAL: Denies any recent significant weight loss or weight gain. EYES: Denies change in vision. EARS, NOSE, MOUTH, THROAT: Denies headaches, denies sore throat. CARDIOVASCULAR: Denies chest pain, palpitations or syncopal episodes. RESPIRATORY: Positive for shortness of breath, cough, congestion no hemoptysis. GASTROINTESTINAL: Denies change in appetite, denies abdominal pain GENITOURINARY: Denies hematuria, denies infections. MUSKULOSKELETAL: Denies pain, denies swelling. INTEGUMENTARY: Denies rash, denies eczema. NEUROLOGICAL: Denies recent memory loss, no recent seizure activity. PSYCHIATRIC: Denies anxiety, denies depression. HEMATOLOGIC/LYMPHATIC: Denies anemia, denies enlarged lymph nodes. Past Medical History Past Medical History: Asthma, COPD, Diabetes Mellitus, GERD/Reflux, Hypert ension, Skin Disorder Additional Past Medical History / Comment(s): hx spina bifida, spinal stenosis, pancreatitis. scrotal wound (to start on antibiotics 10/31/15), migraines, uses wheelchair-can ambulate but does fall at times. Tardive Dyskinesia History of Any Multi-Drug Resistant Organisms: None Reported Past Surgical History: Back Surgery Additional Past Surgical History / Comment(s): back surgery- 3 rods, 4 screws Past Anesthesia/Blood Transfusion Reactions: No Reported Reaction Past Psychological History: ADD/ADHD, Bipolar Smoking Status: Current every day smoker Past Alcohol Use History: None Reported Past Drug Use History: None Reported - Past Family History Mother Family Medical History: Cancer Father Family Medical History: Cancer Medications and Allergies Home Medications Medication Instructions Recorded Confirmed Type Albuterol Sulfate [Ventolin HFA] 2 puff INHALATION RT-QID PRN 12/31/20 12/19/21 History Atorvastatin Calcium [Lipitor] 20 mg PO HS 12/31/20 12/19/21 History Empagliflozin [Jardiance] 25 mg PO DAILY 12/31/20 12/19/21 History Pioglitazone [Actos] 30 mg PO DAILY 12/31/20 12/19/21 History metFORMIN HCL [Glucophage] 1,000 mg PO BID 12/31/20 12/19/21 History fluvoxaMINE [Luvox] 50 mg PO DAILY 07/17/21 12/19/21 History fluvoxaMINE [Luvox] 100 mg PO HS 07/17/21 12/19/21 History Budesonide-Formot 160-4.5 Mcg 2 puff INHALATION RT-BID each 08/03/21 12/19/21 Rx [Symbicort 160-4.5 Mcg Inhaler] Furosemide [Lasix] 40 mg PO DAILY tab 08/03/21 12/19/21 Rx Ipratropium-Albuterol Nebulize 3 ml INHALATION RT-Q2H PRN each 08/03/21 12/19/21 Rx [Duoneb 0.5 mg-3 mg/3 ml Soln] Ipratropium-Albuterol Nebulize 3 ml INHALATION RT-QID each 08/03/21 12/19/21 Rx [Duoneb 0.5 mg-3 mg/3 ml Soln] Metoprolol Tartrate [Lopressor] 25 mg PO BID 12/16/21 12/19/21 History Nicotine 7Mg/24Hr Patch [Habitrol] 1 patch TRANSDERM DAILY PRN 12/16/21 12/19/21 History Potassium Chloride ER [K-Dur 20] 20 meq PO DAILY 12/16/21 12/19/21 History QUEtiapine [SEROquel] 50 mg PO HS 12/16/21 12/19/21 History Valbenazine Tosylate [Ingrezza 1 cap PO DAILY 12/16/21 12/19/21 History 40/80 MG Initiation Pack] lisinopriL [Zestril] 2.5 mg PO DAILY 12/16/21 12/19/21 History Acetaminophen Tab [Tylenol] 650 mg PO Q6H PRN 12/19/21 12/19/21 History Allergies Allergy/AdvReac Type Severity Reaction Status Date / Time metals Allergy Rash/Hives, Uncoded 12/19/21 07:27 swelling Physical Exam Vitals: Vital Signs Temp Pulse Pulse Resp BP BP BP 12/19/21 12:41 102 H 12/19/21 12:31 98 12/19/21 11:25 68 20 164/69 12/19/21 08:51 94 12/19/21 08:44 100 12/19/21 08:07 99 19 173/70 12/19/21 04:40 92 12/19/21 04:27 90 12/19/21 04:03 12/19/21 04:00 98.0 F 84 21 124/69 12/19/21 02:00 26 H 12/19/21 01:16 81 26 H 143/78 12/19/21 00:45 82 26 H 123/87 12/18/21 23:37 101 H 12/18/21 23:27 118 H 12/18/21 23:19 114 H 32 H 12/18/21 23:14 12/18/21 23:11 108 H 12/18/21 22:56 98.3 F 112 H 34 H Pulse Ox FiO2 12/19/21 12:41 12/19/21 12:31 12/19/21 11:25 30 12/19/21 08:51 12/19/21 08:44 30 12/19/21 08:07 96 12/19/21 04:40 12/19/21 04:27 12/19/21 04:03 30 12/19/21 04:00 98 30 12/19/21 02:00 12/19/21 01:16 92 L 30 12/19/21 00:45 97 12/18/21 23:37 12/18/21 23:27 12/18/21 23:19 98 12/18/21 23:14 30 12/18/21 23:11 12/18/21 22:56 93 L Intake and Output 12/18/21 12/19/21 12/19/21 22:59 06:59 14:59 Intake Total 200 118 Output Total 1500 470 Balance -1300 -352 Intake: Intake, IV Titration 200 Amount Doxycycline 100 mg In 100 Sodium Chloride 0.9% 100 ml @ 100 mls/hr IVPB Q12H [facility] Rx#:[id number] Magnesium Sulfate-D5w Pmx 100 1 gm In Dextrose/Water 1 100ml.bag @ 100 mls/hr IVPB ONCE STA Rx#: [id number] Oral 118 Output: Urine 1500 470 Other: Voiding Method Urinal Urinal # Voids 1 Weight 77.111 kg 77.111 kg GENERAL EXAM: Alert, pleasant 46-year-old male patient, on BiPAP 14/5 and 30% FiO2, fairly comfortable in no apparent distress. HEAD: Normocephalic. EYES: Normal reaction of pupils, equal size. NOSE: Clear with pink turbinates. THROAT: No erythema or exudates. NECK: No masses, no JVD. CHEST: No chest wall deformity. LUNGS: Equal air entry with bilateral end expiratory wheeze, diminished. CVS: S1 and S2 normal with no audible murmur, regular rhythm. ABDOMEN: No hepatosplenomegaly, normal bowel sounds, no guarding or rigidity. SPINE: No scoliosis or deformity SKIN: No rashes CENTRAL NERVOUS SYSTEM: No focal deficits, tone is normal in all 4 extremities. EXTREMITIES: There is no peripheral edema. No clubbing, no cyanosis. Peripheral pulses are intact. Results - Laboratory Findings CBC and BMP: 12/18/21 23:08 12/18/21 23:08 PT/INR, D-dimer PT 11.3 sec (9.0-12.0) 12/18/21 23:08 INR 1.0 (<1.2) 12/18/21 23:08 Abnormal lab findings: Abnormal Labs 12/18/21 12/18/21 12/18/21 23:08 23:08 23:16 WBC 19.7 H Neutrophils # 16.3 H Monocytes # 1.1 H VBG pCO2 62 H VBG HCO3 36 H Sodium 132 L Chloride 89 L Carbon Dioxide 32 H BUN 8 L Creatinine 0.38 L Glucose 124 H POC Glucose (mg/dL) Magnesium 1.4 L Total Protein 6.2 L Urine Glucose (UA) 12/19/21 12/19/21 12/19/21 00:54 06:29 11:31 WBC Neutrophils # Monocytes # VBG pCO2 VBG HCO3 Sodium Chloride Carbon Dioxide BUN Creatinine Glucose POC Glucose (mg/dL) 134 H 257 H Magnesium Total Protein Urine Glucose (UA) 4+ H - Diagnostic Findings Chest x-ray: image reviewed (No acute pulmonary process) Assessment and Plan Assessment: Acute hypoxemic respiratory failure secondary to an acute exacerbation of COPD. Richard virus not detected. Influenza screen negative. Mild chronic obstructive pulmonary disease with FEV1 value 77% of predicted, maintained on Symbicort and albuterol the outpatient setting Chronic and ongoing tobacco dependence of 30 years Bipolar disorder ADHD Diabetes mellitus, type II Hypertension History of spina bifida Hyperlipidemia Plan: The patient was seen and evaluated Chest x-ray, labs and medications reviewed Increase IV Solu-Medrol to 60 mg every 6 hours Continue Symbicort, DuoNeb inhalations Obtain a pro-calcitonin Obtain a d-dimer Educated regarding the importance of complete smoking cessation NicoDerm patch has been applied To transition to nasal cannula as tolerated Titrate the FiO2 as tolerated We will continue to follow and make further recommendations based on his clinical status I have personally seen and examined the patient, performed the documentation and the assessment and plan as written. Number of minutes spent on the visit: 20.
[2021-12-19] MEDS ORDERED: QUEtiapine 25 MG TAB PO PRN (14:07)
--- NOTE | 2021-12-19 14:21 | P.CN ---
Psychiatric Consult - . Consult date: 12/19/21 Consult:: 12/19/21 14:10 IDENTIFYING DATA: This patient is a 46-year-old male, who currently lives with his mother in a house, single. REASON FOR REFERRAL: Psychiatry was consulted for psychiatric evaluation HISTORY OF PRESENT ILLNESS: The patient presented to the hospital for complaints of shortness of breath. Patient has history of COPD and was found to have a COPD exacerbation and also bronchitis and was placed on BiPAP. Patient was admitted to the medical floors for further evaluation and treatment. Patient's white blood cell count was elevated at 19.7. Patient's neutrophil count was also elevated. Nurse taking care of patient states that patient's vitals have been okay so far, he received BiPAP and was demonstrating restlessness and also severe anxiety during the day. Patient was seen in the room and appeared to be struggling to breathe and restless. He claims that he came in for a "breathing problem". Patient has been following up with [facility] and claims that he recently was taking off of Klonopin about 2 weeks ago. He states "it all went downhill from there". He claims that he is not using oxygen in his house. He states that he is feeling anxious and was having anxiety attacks at home which was making him more short of breath. He claims that his mood is mildly depressed at this time. Claims that his sleep has been on and off, appetite is fair. At this time patient denies any suicidal or homical ideations, intent or plan. Patient denies any auditory, visual hallucinations and denies any paranoia or delusions. Patients admits to using cigarettes daily. PAST PSYCHIATRIC HISTORY: Patient has a a history of bipolar depression, anxiety. Patient is now on Seroquel and also on fluvoxamine. Klonopin was recently discontinued. Patient was last psychiatrically hospitalized in July 2021. Patient currently follows up with Dr. Samuel at [facility] as an outpatient. Patient denies any history of suicide attempts in the past. PAST MEDICAL HISTORY: As per medicine H&P. ALLERGIES: as per EMR. CHEMICAL DEPENDENCY HISTORY: as per HPI. FAMILY PSYCHIATRIC/SUBSTANCE USE HISTORY: denies SOCIAL HISTORY: Patient was born and raised in [facility]. Patient has been in senior living in the past for DUIs. Patient apparently completed high school. He is single, has no kids and currently lives with his mother in a house. MENTAL STATUS EXAM: General Appearance: Patient appears to be overweight, disheveled appearance, several tattoos, older than stated age is alert, appears to be anxious however is attempting to cooperate. Patient appears to have poorhygiene and grooming wearing hospital gown with fair and intense eye contact. Behavior: Patient is lying in bed however appears to be restless. Speech: Patient's speech is fluent and nonpressured. Hesitant Mood/Affect: Patient reports their mood is "mildly depressed and anxious", affect is congruent Suicidality/Homicidality: Patient denies having any suicidal or homicidal ideation intent or plan. Perceptions: Patient denies any visual hallucinations and denies any auditory hallucinations Though content/process: There is no evidence of any delusional thought content and thought process is linear and goal-directed. [place] Memory and concentration: AOX3, grossly intact for the purposes of this session. Can spell "WORLD" backwards Judgment and insight: Limited IMPRESSIONS: Bipolar disorder, depressed Anxiety disorder unspecified History of alcohol abuse COPD exacerbation Nicotine dependence PLAN: -At this time patient DOES NOT meet criteria for inpatient psychiatric admission. -Delirium precautions recommended with patient including - avoiding use of narcotics and RESERVATIONS SPECIALIST sedatives, limit anticholinergic medications when possible, frequent re-orientation, minimize use of restraints, open window shades during the day and close them at night -Would recommend the following medication changes/additions: Seroquel 25 mg 3 times a day when necessary for anxiety. We'll also add BuSpar 15 mg 3 times a day when necessary for anxiety. Will decrease/taper off fluvoxamine and replace with Effexor, start with 37.5 mg daily for anxiety/mood. Continue with scheduled Seroquel 50 mg daily at bedtime for sleep/mood stabilization -Patiently currently follows up with Dr. Samuel at [facility]. -Communicated plan to patient's nurse -Will continue to follow along -Please contact with any questions.
[2021-12-19] MEDS: busPIRone HCl 5 MG TAB PO PRN ×2 (15:02→17:50)
[2021-12-19] MEDS: IPRATROPIUM-ALBUTEROL 3 ML NEB INHALATION SCH ×2 (15:36→21:10)
[2021-12-19] MEDS: VENLAFAXINE HCL ER 37.5 MG CAP PO SCH (15:58)
[2021-12-19 16:33] LABS: Glucose,Whole Blood 150 mg/dL (70-110)
[2021-12-19] MEDS: methylPREDNISolone SOD SUCCI 125 MG/2 ML VIAL IV SCH (17:06)
[2021-12-19 20:00] LABS: Glucose,Whole Blood 152 mg/dL (70-110)
[2021-12-19] MEDS ORDERED: ATORVASTATIN 20 MG TAB PO SCH (21:00)
[2021-12-19] MEDS ORDERED: QUEtiapine 50 MG TAB PO SCH (21:00)
[2021-12-20] MEDS: DOXYCYCLINE 100 MG in SODIUM CHLORIDE 0.9% 100 ML IVPB SCH ×2 (00:12→14:06)
[2021-12-20] MEDS: methylPREDNISolone SOD SUCCI 125 MG/2 ML VIAL IV SCH ×3 (00:12→13:12)
[2021-12-20] MEDS: HEPARIN SODIUM,PORCINE/PF 5,000 UNIT/0.5 ML SYRINGE SQ SCH ×3 (00:12→16:10)
[2021-12-20] MEDS: IPRATROPIUM-ALBUTEROL 3 ML NEB INHALATION PRN (03:19)
[2021-12-20 06:25] LABS: Glucose,Whole Blood 165 mg/dL (70-110)
[2021-12-20] MEDS: SODIUM CHLORIDE 0.9% 1,000 ML IV SCH ×2 (06:27→10:24)
[2021-12-20] MEDS: INSULIN ASPART (NovoLOG) 100 UNIT/ML VIAL SQ SCH ×3 (06:36→17:07)
[2021-12-20] MEDS: SYMBICORT 160-4.5 MCG INHALER INHALATION SCH (07:57)
[2021-12-20] MEDS: IPRATROPIUM-ALBUTEROL 3 ML NEB INHALATION SCH ×3 (07:57→15:08)
[2021-12-20 08:47] LABS: Basophils % (A) 0 %; Eosinophils % (A) 0 %; HCT 48.8 % (39.0-53.0); HGB 15.6 gm/dL (13.0-17.5); Hypochromasia Slight; Lymphocytes # (A) 0.9 k/uL (1.0-4.8); Lymphocytes % (A) 6 %; MCH 30.9 pg (25.0-35.0); MCHC 31.9 g/dL (31.0-37.0); MCV 96.9 fL (80.0-100.0); Mean Platelet Volume 7.5; Monocytes # (A) 0.5 k/uL (0-1.0); Monocytes % (A) 3 %; Neutrophils # (A) 13.9 k/uL (1.3-7.7); Neutrophils % (A) 91 %; Platelet Count 267 k/uL (150-450); RBC 5.03 m/uL (4.30-5.90); RDW 13.5 % (11.5-15.5); WBC 15.4 k/uL (3.8-10.6)
[2021-12-20 08:57] LABS: African American GFR (CKD) >90 (>60 ml/min/1.73 sqM); Anion Gap 7 mmol/L; Blood Urea Nitrogen 15 mg/dL (9-20); Calcium 8.8 mg/dL (8.4-10.2); Carbon Dioxide 35 mmol/L (22-30); Chloride 99 mmol/L (98-107); Glucose 168 mg/dL (74-99); Non-African American GFR(CKD) >90 (>60 ml/min/1.73 sqM); Potassium 4.2 mmol/L (3.5-5.1); Sodium 141 mmol/L (137-145)
[2021-12-20] MEDS: NICOTINE 21MG/24HR PATCH TRANSDERM SCH (10:12)
[2021-12-20] MEDS: FUROSEMIDE 40 MG TAB PO SCH (10:12)
[2021-12-20] MEDS: METOPROLOL TARTRATE 25 MG TAB PO SCH (10:12)
[2021-12-20] MEDS: metFORMIN 500 MG TAB PO SCH (10:12)
[2021-12-20] MEDS: [UNRECOGNIZED DRUG - OTHER] PO SCH (10:13)
[2021-12-20] MEDS: DAPAGLIFLOZIN PROPANEDIOL 10 MG TABLET PO SCH (10:17)
[2021-12-20] MEDS: VENLAFAXINE HCL ER 37.5 MG CAP PO SCH (10:17)
[2021-12-20] MEDS: FAMOTIDINE 20 MG/2 ML VIAL IV SCH (10:20)
[2021-12-20] MEDS: busPIRone HCl 5 MG TAB PO PRN (10:20)
[2021-12-20 11:56] LABS: Glucose,Whole Blood 133 mg/dL (70-110)
--- NOTE | 2021-12-20 12:19 | P.PN ---
Subjective Progress Note Date: 12/20/21 This is a pleasant 46-year-old male patient with a known history of bipolar disorder, diabetes mellitus, hypertension, spina bifida, ADHD, chronic and ongoing tobacco dependence. He does have mild chronic obstructive pulmonary disease with an FEV1 value of 77% of predicted. He follows with Dr. Espinoza in our office. He is maintained on Symbicort, albuterol. He presented here to the emergency room with rather sudden onset of shortness of breath, gasping to get his air. He was placed on BiPAP. Chest x-ray revealed no acute pulmonary process. EKG reveals sinus rhythm without any significant ST or T wave abnormalities. White count 19.7. Hemoglobin 16.8. Sodium 132. Potassium 3.6. Bicarb 32. BUN 8. Creatinine 0.38. Glucose 124. AST 41. ALT 22. Troponin negative times one. ProBNP 570. Urinalysis with 4+ glucose. Current on a virus not detected. Influenza screen negative. Venous carbon dioxide 62. He is seen today in consultation on the selective care unit. Currently on BiPAP 14/5 and 30% FiO2. Normal saline at 75 ML's per hour. He is initiated on Symbicort, DuoNeb inhalations, IV Solu-Medrol. He is feeling a bit better today compared to yesterday. Still dyspneic with conversation. Dyspneic with exertion. The patient is seen today 12/20/2021 in follow-up on the regular medical floor. He is currently resting comfortably in bed. Off the BiPAP. Maintaining good O2 saturations in the 90s on 2 L/m per nasal cannula. He is afebrile. Hemodynamically stable. White count 15.4. Hemoglobin 15.6. Sodium 141. Potassium 4.2. Bicarb 15. Creatinine 0.43. Glucose 168. He is continued on DuoNeb inhalations, Symbicort, IV solu Medrol. Heparin for DVT prophylaxis. Doxycycline as an empiric antibiotic. NicoDerm patch in place. Objective - Vital Signs Vital signs: Vital Signs Temp 98.0 F 12/20/21 10:07 Pulse 78 12/20/21 11:11 Resp 21 12/20/21 10:07 BP 122/77 12/20/21 10:07 Pulse Ox 97 12/20/21 10:07 FiO2 30 12/19/21 23:45 Intake & Output 12/19/21 12/20/21 12/20/21 18:59 06:59 18:59 Intake Total 594 180 Output Total 1130 200 150 Balance -536 -200 30 Intake: Oral 594 180 Output: Urine 1130 200 150 Other: Voiding Method Urinal # Voids 1 - Exam GENERAL EXAM: Alert, pleasant 46-year-old male patient, on 2 L/m per nasal cannula, comfortable in no apparent distress. HEAD: Normocephalic. EYES: Normal reaction of pupils, equal size. NOSE: Clear with pink turbinates. THROAT: No erythema or exudates. NECK: No masses, no JVD. CHEST: No chest wall deformity. LUNGS: Equal air entry with end expiratory wheeze, diminished. CVS: S1 and S2 normal with no audible murmur, regular rhythm. ABDOMEN: No hepatosplenomegaly, normal bowel sounds, no guarding or rigidity. SPINE: No scoliosis or deformity SKIN: No rashes CENTRAL NERVOUS SYSTEM: No focal deficits, tone is normal in all 4 extremities. EXTREMITIES: There is no peripheral edema. No clubbing, no cyanosis. Peripheral pulses are intact. - Labs CBC & Chem 7: 12/20/21 08:16 12/20/21 08:16 Labs: Abnormal Lab Results - Last 24 Hours (Table) 12/19/21 12/19/21 12/19/21 Range/Units 13:10 16:31 19:59 WBC (3.8-10.6) k/uL Neutrophils # (1.3-7.7) k/uL Lymphocytes # (1.0-4.8) k/uL Carbon Dioxide (22-30) mmol/L Creatinine (0.66-1.25) mg/dL Glucose (74-99) mg/dL POC Glucose (mg/dL) 150 H 152 H (70-110) mg/dL Procalcitonin 0.12 H (0.02-0.09) ng/mL 12/20/21 12/20/21 12/20/21 Range/Units 06:24 08:16 08:16 WBC 15.4 H (3.8-10.6) k/uL Neutrophils # 13.9 H (1.3-7.7) k/uL Lymphocytes # 0.9 L (1.0-4.8) k/uL Carbon Dioxide 35 H (22-30) mmol/L Creatinine 0.43 L (0.66-1.25) mg/dL Glucose 168 H (74-99) mg/dL POC Glucose (mg/dL) 165 H (70-110) mg/dL Procalcitonin (0.02-0.09) ng/mL 12/20/21 Range/Units 11:54 WBC (3.8-10.6) k/uL Neutrophils # (1.3-7.7) k/uL Lymphocytes # (1.0-4.8) k/uL Carbon Dioxide (22-30) mmol/L Creatinine (0.66-1.25) mg/dL Glucose (74-99) mg/dL POC Glucose (mg/dL) 133 H (70-110) mg/dL Procalcitonin (0.02-0.09) ng/mL Assessment and Plan Assessment: Acute hypoxemic respiratory failure secondary to an acute exacerbation of COPD. Richard virus not detected. Influenza screen negative. Mild chronic obstructive pulmonary disease with FEV1 value 77% of predicted, maintained on Symbicort and albuterol the outpatient setting Chronic and ongoing tobacco dependence of 30 years Bipolar disorder ADHD Diabetes mellitus, type II Hypertension History of spina bifida Hyperlipidemia Plan: The patient was seen and evaluated Labs and medications reviewed Cleared for discharge from the pulmonary standpoint Complete a prednisone taper starting at 40 mg 4 days Complete course of antibiotics in the form of doxycycline for a total of 7 days Continue his home pulmonary medications Educated regarding the importance of complete smoking cessation Follow-up in the office in 1 week I have personally seen and examined the patient, performed the documentation and the assessment and plan as written. Number of minutes spent on the visit: 10.
[2021-12-20 13:11] VITALS: BP 181/118; RESP 18; TEMP 98.1
[2021-12-20] MEDS: PIOGLITAZONE 30 MG TAB PO SCH (13:12)
[2021-12-20] MEDS ORDERED: chlordiazePOXIDE 25 MG CAP PO PRN (13:37)
[2021-12-20] MEDS ORDERED: OLANZapine 5 MG TAB PO STA (13:38)
--- NOTE | 2021-12-20 14:06 | P.PN ---
Progress Note - Text Progress Note Date: 12/20/21 Interval History: Patient was seen today for psychiatric follow-up. Nurse claims that patient is continuing to make noises at times and be restless in his bed. She also states the patient was diaphoretic earlier. He continues to have shortness of breath and is on nasal cannula. Chemical Production Engineer went in to see patient today and is laying in his bed. He claims that he was drinking beer at home however did not specify how much. He claims that the last time he took Klonopin was about 2 weeks ago. He continues to state that he feels anxious and he is fairly restless in his bed. He does make occasional noises at times almost as if he is gasping for air. He claims that he slept about 6 hours last night. At this time patient denies any suicidal or homical ideations, intent or plan. Patient denies any auditory, visual hallucinations and denies any paranoia or delusions. Patient denies any side effects from the medications and has been compliant with meds. Mental Status Exam: General Appearance: Patient appears to be overweight, several tattoos, older than stated age is alert, appears to be anxious however is attempting to cooperate. Patient appears to have improving hygiene and grooming wearing hospital gown with fair and intense eye contact. Behavior: Patient is lying in bed however appears to be restless. Anxious Speech: Patient's speech is fluent and nonpressured. Hesitant Mood/Affect: Patient reports their mood is "anxious", affect is congruent Suicidality/Homicidality: Patient denies having any suicidal or homicidal ideation intent or plan. Perceptions: Patient denies any visual hallucinations and denies any auditory hallucinations Though content/process: There is no evidence of any delusional thought content and thought process is linear and goal-directed. [place] Memory and concentration: AOX3, grossly intact for the purposes of this session Judgment and insight: Limited IMPRESSIONS: Bipolar disorder, depressed Anxiety disorder unspecified History of alcohol abuse COPD exacerbation Nicotine dependence Plan: -At this time patient DOES NOT meet criteria for inpatient psychiatric admission. -Delirium precautions recommended with patient including - avoiding use of narcotics and VENTURE CAPITAL ANALYST sedatives, limit anticholinergic medications when possible, frequent re-orientation, minimize use of restraints, open window shades during the day and close them at night -Would recommend the following medication changes/additions: increase Seroquel 50 mg 3 times a day when necessary for anxiety. increase BuSpar 20 mg 3 times a day when necessary for anxiety. Will decrease/taper off fluvoxamine and replace with Effexor. increase to 75 mg daily for anxiety/mood. increase scheduled Seroquel 75 mg daily at bedtime for sleep/mood stabilization. will give one dose of zyprexa prn NOW. -Patiently currently follows up with Dr. Samuel at [facility]. -Communicated plan to patient's nurse -Will continue to follow along tomorrow. -Please contact with any questions.
[2021-12-20] MEDS ORDERED: busPIRone HCl 10 MG TAB PO PRN (14:07)
[2021-12-20] MEDS ORDERED: QUEtiapine 50 MG TAB PO PRN (14:08)
[2021-12-20 15:11] VITALS: PULSE 82
[2021-12-20 16:48] LABS: Glucose,Whole Blood 129 mg/dL (70-110)
--- NOTE | 2021-12-20 16:59 | P.PN ---
Subjective This is a pleasant 46 years old male with past medical history of diabetes mellitus, hypertension, hyperlipidemia, migraine, using a wheelchair, history of Tardive Dyskinesia, chronic back pain, ADD/ADH D, nicotine dependence and bipolar, anxiety on multiple medication Patient presents because of dyspnea, progressively worse over the last 2 days with no chest pain or coughing as he states. No other GI or urinary complaints, no headache or weakness or numbness He still smokes about 1 pack per day and he was consulted and agrees to quit and he wants nicotine patch. He denies alcohol or illicit drugs. Patient currently on BiPAP and he talks with the BiPAP mask. He denies home oxygen on steroids use at home. His production corrugator is Dr. Donovan and his PCP is Dr. lei Patient is afebrile and vitals are stable he is tachypneic with a rate of 121- 26. Labs showed leukocytosis of 19.7 K INR is normal 1.0 Venous. 7.3 and pCO2 62 which is elevated Sodium 132. Creatinine normal as well as the risks of BMP and liver enzymes and bilirubin. Magnesium slightly low at 1.4. Urine analysis is non-suspicious of infection. Virus profile of cough it and influenza is negative. EKG showing normal sinus rhythm at [address]-T changes Chest x-ray: No acute cardiopulmonary disease Patient is already started on a breathing treatment, doxycycline and IV Solu- Medrol and normal saline 12/20/2021 Patient breathing is significantly improved and less wheezing and pulmonary clear patient for discharge on tapered dose of prednisone. We switched Solu- Medrol and prednisone 40 mg from tomorrow Patient still got agitated and he suffers from psychiatric symptoms. I discussed the case with psychiatry team and their input is appreciated Patient may be undergoing alcohol withdrawal, Librium is added, Seroquel and BuSpar stenosis also added as well as Effexor Patient looks calm now. Also his antibiotics in the form of doxycycline. As per staff he took cultures BiPAP last night Patient needs still monitoring regarding his mental illness. (Steroids might be contributing factor for therefore we lowered dose) Objective - Vital Signs Vital signs: Vital Signs Temp 98.1 F 12/20/21 13:04 Pulse 82 12/20/21 15:26 Resp 18 12/20/21 13:04 BP 181/118 12/20/21 13:04 Pulse Ox 97 12/20/21 13:04 FiO2 30 12/19/21 23:45 Intake & Output 12/19/21 12/20/21 12/20/21 18:59 06:59 18:59 Intake Total 594 360 Output Total 1130 200 550 Balance -536 -200 -190 Intake: Oral 594 360 Output: Urine 1130 200 550 Other: Voiding Method Urinal # Voids 1 - Exam -GENERAL: The patient is alert and oriented x3, somewhat agitated and restless because of his mental illness. Well developed, well nourished. HEENT: Pupils are round and equally reacting to light. EOMI. No scleral icterus. No conjunctival pallor. Normocephalic, atraumatic. No pharyngeal erythema. No thyromegaly. CARDIOVASCULAR: S1 and S2 present. No murmurs, rubs, or gallops. PULMONARY: Chest is clear to auscultation, no wheezing or crackles. ABDOMEN: Soft, nontender, nondistended, normoactive bowel sounds. No palpable organomegaly. MUSCULOSKELETAL: No joint swelling or deformity. EXTREMITIES: No cyanosis, clubbing, or pedal edema. NEUROLOGICAL: Gross neurological examination did not reveal any focal deficits. SKIN: No rashes. no petechiae. - Labs CBC & Chem 7: 12/20/21 08:16 12/20/21 08:16 Labs: Abnormal Lab Results - Last 24 Hours (Table) 12/19/21 12/19/21 12/20/21 Range/Units 13:10 19:59 06:24 WBC (3.8-10.6) k/uL Neutrophils # (1.3-7.7) k/uL Lymphocytes # (1.0-4.8) k/uL Carbon Dioxide (22-30) mmol/L Creatinine (0.66-1.25) mg/dL Glucose (74-99) mg/dL POC Glucose (mg/dL) 152 H 165 H (70-110) mg/dL Procalcitonin 0.12 H (0.02-0.09) ng/mL 12/20/21 12/20/21 12/20/21 Range/Units 08:16 08:16 11:54 WBC 15.4 H (3.8-10.6) k/uL Neutrophils # 13.9 H (1.3-7.7) k/uL Lymphocytes # 0.9 L (1.0-4.8) k/uL Carbon Dioxide 35 H (22-30) mmol/L Creatinine 0.43 L (0.66-1.25) mg/dL Glucose 168 H (74-99) mg/dL POC Glucose (mg/dL) 133 H (70-110) mg/dL Procalcitonin (0.02-0.09) ng/mL 12/20/21 Range/Units 16:47 WBC (3.8-10.6) k/uL Neutrophils # (1.3-7.7) k/uL Lymphocytes # (1.0-4.8) k/uL Carbon Dioxide (22-30) mmol/L Creatinine (0.66-1.25) mg/dL Glucose (74-99) mg/dL POC Glucose (mg/dL) 129 H (70-110) mg/dL Procalcitonin (0.02-0.09) ng/mL Assessment and Plan Assessment: Acute COPD exacerbation, improved Bipolar with depression Possible alcohol withdrawal Exactly disorder Acute hypoxic respiratory failure Hypertension Type 2 diabetes mellitus Hyperlipidemia History of bipolar and tardive dyskinesia Nicotine dependence Plan: This is a pleasant 46 years old male with COPD exacerbation Continue with oral steroids Continue with a bronchodilator Continue with oxygen as needed Pulmonary consult Continue with metformin, farxiga , and Actos and insulin sliding scale Psychiatry team input is appreciated, continue with psych medication per the recommendation Labs and medication were reviewed.. Continue same treatment. Continue with symptomatic treatment. Resume home medication. Monitor lytes and vitals. DVT and GI prophylaxis. Further recommendations as per clinical course of the patient DVT prophylaxis: Subcutaneous heparin GI Prophylaxis: Pepcid Prognosis is guarded ,
[2021-12-20] MEDS ORDERED: QUEtiapine 25 MG TAB PO SCH (21:00)
[2021-12-21] MEDS ORDERED: THIAMINE 100 MG TAB PO SCH (09:00)
[2021-12-21] MEDS ORDERED: VENLAFAXINE HCL ER 75 MG CAP PO SCH (09:00)
[2021-12-21] MEDS ORDERED: predniSONE 20 MG TAB PO SCH (09:00)
== END 2021-12-20 17:41 | disposition left against medical advice (07) | DRG 190 ==
LOC: EC 22:53 → 3SCARD 12-19 00:55
PROVIDERS: ADMIT Hospitalist; ATTEND Hospitalist
DX: J44.1 Chronic obstructive pulmonary disease with (acute) exacerbation (principal); J96.01 Acute respiratory failure with hypoxia; E11.9 Type 2 diabetes mellitus without complications; F10.10 Alcohol abuse, uncomplicated; I10 Essential (primary) hypertension; F31.9 Bipolar disorder, unspecified; D72.829 Elevated white blood cell count, unspecified; E78.5 Hyperlipidemia, unspecified; Z53.29 Procedure and treatment not carried out because of patient's decision for other reasons; F17.210 Nicotine dependence, cigarettes, uncomplicated; G24.01 Drug induced subacute dyskinesia; F41.9 Anxiety disorder, unspecified; G89.29 Other chronic pain; F90.9 Attention-deficit hyperactivity disorder, unspecified type; M48.00 Spinal stenosis, site unspecified; Z20.822 Contact with and (suspected) exposure to COVID-19; Z79.899 Other long term (current) drug therapy; Z79.84 Long term (current) use of oral hypoglycemic drugs; Z79.51 Long term (current) use of inhaled steroids; Z28.310 Unvaccinated for COVID-19; Z91.048 Other nonmedicinal substance allergy status; Q05.9 Spina bifida, unspecified; Z91.81 History of falling
CPT/HCPCS: 36415; 70450; 71045; 71046; 80048; 80053; 80306; 80320; 81001; 81003; 82803; 83036; 83605; 83735; 83880; 84145; 84439; 84443; 84484; 85025; 85379; 85610; 85730; 87040; 87502; 87635; 93005; 94640; 94660; 94760; 96361; 96365; 96375; 99291

== ENCOUNTER 2021-12-28 11:55 | Emergency (ER) | payer MEDICARE, OTHER ==
[2021-12-28 12:24] LABS: Glucose,Whole Blood 97 mg/dL (70-110)
[2021-12-28] MEDS ORDERED: SODIUM CHLORIDE 0.9% 500 ML 500 ML IV STA (12:26)
[2021-12-28] MEDS ORDERED: IPRATROPIUM-ALBUTEROL 3 ML NEB INHALATION STA (12:26)
--- NOTE | 2021-12-28 12:26 | ED ---
General Adult HPI - General Chief complaint: Shortness of Breath Stated complaint: sob Time Seen by Provider: 12/28/21 12:13 Source: patient, EMS, RN notes reviewed, old records reviewed Mode of arrival: EMS Limitations: no limitations - History of Present Illness Initial comments: Patient presents to the emergency room with shortness of breath and anxiety today. Per nursing, EMS gave patient breathing treatment and steroids with much improvement. Patient states he does continue to smoke daily. Does not use oxygen at home. Oxygen saturation 95% on room air. Patient denies any abdominal pain, no nausea vomiting diarrhea or fevers. -: days(s) (1) Severity scale (1-10): 0 Associated Symptoms: shortness of breath, other (anxiety) Treatments Prior to Arrival: other (Albuterol and steroids) - Related Data Home Medications Medication Instructions Recorded Confirmed Atorvastatin Calcium [Lipitor] 20 mg PO HS 12/31/20 12/28/21 Empagliflozin [Jardiance] 25 mg PO DAILY 12/31/20 12/28/21 metFORMIN HCL [Glucophage] 1,000 mg PO BID 12/31/20 12/28/21 fluvoxaMINE [Luvox] 50 mg PO DAILY 07/17/21 12/28/21 fluvoxaMINE [Luvox] 100 mg PO HS 07/17/21 12/28/21 Potassium Chloride ER [K-Dur 20] 20 meq PO DAILY 12/16/21 12/28/21 QUEtiapine [SEROquel] 50 mg PO HS 12/16/21 12/28/21 Valbenazine Tosylate [Ingrezza 1 cap PO DAILY 12/16/21 12/28/21 40/80 MG Initiation Pack] Cholecalciferol [Vitamin D3 (125 125 mcg PO DAILY 12/28/21 12/28/21 Mcg = 5000 Iu)] Ipratropium-Albuterol Nebulize 3 ml INHALATION RT-QID PRN 12/28/21 12/28/21 [Duoneb 0.5 mg-3 mg/3 ml Soln] Omeprazole 20 mg PO DAILY 12/28/21 12/28/21 Previous Rx's Medication Instructions Recorded Budesonide-Formot 160-4.5 Mcg 2 puff INHALATION RT-BID each 08/03/21 [Symbicort 160-4.5 Mcg Inhaler] Furosemide [Lasix] 40 mg PO DAILY tab 08/03/21 Albuterol Sulfate [Ventolin HFA] 2 puff INHALATION RT-QID PRN #1 12/20/21 each Allergies Allergy/AdvReac Type Severity Reaction Status Date / Time metals Allergy Rash/Hives, Uncoded 12/28/21 13:10 swelling Review of Systems ROS Statement: Those systems with pertinent positive or pertinent negative responses have been documented in the HPI. ROS Other: All systems not noted in ROS Statement are negative. Past Medical History Past Medical History: Asthma, COPD, Diabetes Mellitus, GERD/Reflux, Hypertension, Skin Disorder Additional Past Medical History / Comment(s): hx spina bifida, spinal stenosis, pancreatitis. scrotal wound (to start on antibiotics 10/31/15), migraines, uses wheelchair-can ambulate but does fall at times. Tardive Dyskinesia History of Any Multi-Drug Resistant Organisms: None Reported Past Surgical History: Back Surgery Additional Past Surgical History / Comment(s): back surgery- 3 rods, 4 screws Past Anesthesia/Blood Transfusion Reactions: No Reported Reaction Past Psychological History: ADD/ADHD, Bipolar Smoking Status: Current every day smoker - Past Family History Mother Family Medical History: Cancer Father Family Medical History: Cancer General Exam Limitations: no limitations General appearance: alert, in no apparent distress Head exam: Present: atraumatic Eye exam: Absent: scleral icterus, conjunctival injection, periorbital swelling ENT exam: Present: mucous membranes dry Neck exam: Absent: meningismus Respiratory exam: Present: decreased breath sounds. Absent: respiratory distress, wheezes, rales, rhonchi, stridor, chest wall tenderness, accessory muscle use Cardiovascular Exam: Present: regular rate GI/Abdominal exam: Present: soft. Absent: distended, tenderness, guarding, rebound, rigid Extremities exam: Present: normal capillary refill. Absent: pedal edema Neurological exam: Present: alert Psychiatric exam: Present: normal affect, normal mood Skin exam: Present: warm, dry, normal color. Absent: cyanosis, diaphoretic, p etechiae, pallor Course Vital Signs 12/28/21 12/28/21 12/28/21 12:09 12:56 13:07 Temperature 98.8 F Pulse Rate 88 108 H 103 H Respiratory 22 Rate Blood Pressure 153/90 O2 Sat by Pulse 96 Oximetry 12/28/21 14:25 Temperature 98.7 F Pulse Rate 102 H Respiratory 18 Rate Blood Pressure 141/90 O2 Sat by Pulse 94 L Oximetry EKG Findings - EKG Results: EKG: sinus rhythm (Ventricular rate 77, DC interval 0.140, QRS 0.90, QTC 0.422; normal axis) Medical Decision Making - Medical Decision Making Patient presents via EMS for shortness of breath. When assessed patient only complaining of anxiety. Lung sounds with expiratory wheezes and diminished. He does have history of COPD, does not use oxygen at home. He continues to be a smoker. Patient was in the hospital and signed out AGAINST MEDICAL ADVICE on December 20. WBC count 14, improving from December 20 when it was 15.4. Chest x-ray shows no acute cardiopulmonary process. Vital signs are stable. Patient was given Klonopin as requested for his anxiety and was observed sleeping in no acute distress. He was discharged home and directed to stop smoking as this will only worsen his symptoms of COPD and difficulty breathing, increase his risk for heart attack and . Encouraged to follow up with his primary care doctor next week and continue previously prescribed medications. Case discussed with Dr. Huggins. - Lab Data Result diagrams: 12/28/21 12:42 12/28/21 12:42 Lab Results 12/28/21 12/28/21 12/28/21 Range/Units 12:21 12:42 12:42 WBC 14.0 H (3.8-10.6) k/uL RBC 5.27 (4.30-5.90) m/uL Hgb 16.4 (13.0-17.5) gm/dL Hct 50.2 (39.0-53.0) % MCV 95.2 (80.0-100.0) fL MCH 31.1 (25.0-35.0) pg MCHC 32.7 (31.0-37.0) g/dL RDW 14.1 (11.5-15.5) % Plt Count 271 (150-450) k/uL MPV 7.7 Neutrophils % 86 % Lymphocytes % 9 % Monocytes % 4 % Eosinophils % 0 % Basophils % 0 % Neutrophils # 12.0 H (1.3-7.7) k/uL Lymphocytes # 1.2 (1.0-4.8) k/uL Monocytes # 0.6 (0-1.0) k/uL Eosinophils # 0.0 (0-0.7) k/uL Basophils # 0.0 (0-0.2) k/uL Sodium 134 L (137-145) mmol/L Potassium 3.9 (3.5-5.1) mmol/L Chloride 93 L (98-107) mmol/L Carbon Dioxide 31 H (22-30) mmol/L Anion Gap 10 mmol/L BUN 7 L (9-20) mg/dL Creatinine 0.45 L (0.66-1.25) mg/dL Est GFR (CKD-EPI)AfAm >90 (>60 ml/min/1.73 sqM) Est GFR (CKD-EPI)NonAf >90 (>60 ml/min/1.73 sqM) Glucose 98 (74-99) mg/dL POC Glucose (mg/dL) 97 (70-110) mg/dL POC Glu Accounting Coordinator ID Beulah Figueroa Calcium 8.9 (8.4-10.2) mg/dL Magnesium 1.8 (1.6-2.3) mg/dL Total Bilirubin 0.3 (0.2-1.3) mg/dL AST 20 (17-59) U/L ALT 17 (4-49) U/L Alkaline Phosphatase 107 (38-126) U/L Total Protein 5.9 L (6.3-8.2) g/dL Albumin 3.8 (3.5-5.0) g/dL Disposition Clinical Impression: Anxiety, COPD (chronic obstructive pulmonary disease) Disposition: HOME SELF-CARE Condition: Good Instructions (If sedation given, give patient instructions): COPD (Chronic Obstructive Pulmonary Disease) (ED), Anxiety (ED) Additional Instructions: Continue taking your previously prescribed medications. Stop smoking as this will only worsen your symptoms of COPD and difficulty breathing. It will also increase your risk for heart attack and . Follow up with your primary care doctor next week. Is patient prescribed a controlled substance at d/c from ED?: No Referrals: Anne Sosa MD [Primary Care Provider] - 1-2 days Time of Disposition: 13:49
[2021-12-28] MEDS ORDERED: clonazePAM 0.5 MG TAB PO STA (12:40)
[2021-12-28 13:09] LABS: Basophils % (A) 0 %; Eosinophils % (A) 0 %; HCT 50.2 % (39.0-53.0); HGB 16.4 gm/dL (13.0-17.5); Lymphocytes # (A) 1.2 k/uL (1.0-4.8); Lymphocytes % (A) 9 %; MCH 31.1 pg (25.0-35.0); MCHC 32.7 g/dL (31.0-37.0); MCV 95.2 fL (80.0-100.0); Mean Platelet Volume 7.7; Monocytes # (A) 0.6 k/uL (0-1.0); Monocytes % (A) 4 %; Neutrophils % (A) 86 %; Platelet Count 271 k/uL (150-450); RBC 5.27 m/uL (4.30-5.90); RDW 14.1 % (11.5-15.5)
[2021-12-28 13:18] LABS: ALT 17 U/L (4-49); AST 20 U/L (17-59); African American GFR (CKD) >90 (>60 ml/min/1.73 sqM); Albumin 3.8 g/dL (3.5-5.0); Alkaline Phosphatase 107 U/L (38-126); Anion Gap 10 mmol/L; Blood Urea Nitrogen 7 mg/dL (9-20); Calcium 8.9 mg/dL (8.4-10.2); Carbon Dioxide 31 mmol/L (22-30); Chloride 93 mmol/L (98-107); Glucose 98 mg/dL (74-99); Magnesium 1.8 mg/dL (1.6-2.3); Non-African American GFR(CKD) >90 (>60 ml/min/1.73 sqM); Potassium 3.9 mmol/L (3.5-5.1); Sodium 134 mmol/L (137-145); Total Bilirubin 0.3 mg/dL (0.2-1.3); Total Protein 5.9 g/dL (6.3-8.2)
--- NOTE | 2021-12-28 13:41 | XR ---
EXAMINATION TYPE: XR chest 2V DATE OF EXAM: 12/28/2021 COMPARISON: 12/19/2021 HISTORY: Difficulty breathing TECHNIQUE: Frontal and lateral views of the chest are obtained on 3 images. FINDINGS: There is no focal air space opacity, pleural effusion, or pneumothorax seen. The cardiac silhouette size is stable accounting for differences in technique. The osseous structures are intac t. There are overlying leads. Aorta is dense. IMPRESSION: No acute cardiopulmonary process.
[2021-12-28 14:33] VITALS: BP 141/90; PULSE 102; RESP 18; TEMP 98.7
== END 2021-12-28 14:25 | disposition home or self-care (01) ==
LOC: EC 11:55
DX: F41.9 Anxiety disorder, unspecified (principal); J44.9 Chronic obstructive pulmonary disease, unspecified; J45.909 Unspecified asthma, uncomplicated; E11.9 Type 2 diabetes mellitus without complications; K21.9 Gastro-esophageal reflux disease without esophagitis; I10 Essential (primary) hypertension; F90.9 Attention-deficit hyperactivity disorder, unspecified type; F31.9 Bipolar disorder, unspecified; F17.200 Nicotine dependence, unspecified, uncomplicated; L23.0 Allergic contact dermatitis due to metals; Z79.84 Long term (current) use of oral hypoglycemic drugs; Z79.811 Long term (current) use of aromatase inhibitors; Z79.899 Other long term (current) drug therapy; Z79.83 Long term (current) use of bisphosphonates
CPT/HCPCS: 36415; 71046; 80053; 83735; 85025; 93005; 94640; 96360; 99285

== ENCOUNTER 2021-12-30 08:51 | Emergency (ER) | payer MEDICARE, OTHER ==
[2021-12-30] MEDS ORDERED: ALPRAZolam 1 MG TAB PO STA (08:59)
[2021-12-30] MEDS ORDERED: LORazepam 2 MG/ML INJ IM STA (09:03)
--- NOTE | 2021-12-30 09:04 | ED ---
General Adult HPI - General Chief complaint: Anxiety Stated complaint: sob, mental health Time Seen by Provider: 12/30/21 08:55 Source: patient, EMS Mode of arrival: EMS Limitations: no limitations - History of Present Illness Initial comments: Dictation was produced using [employer] dictation software. please excuse any grammatical, word or spelling errors. Chief Complaint: 46-year-old male presents emergency department for recurrent anxiety History of Present Illness: She is a 38-year-old male he is well-known to emergency department. He is here today for anxiety. He is brought in by EMS for anxiety reaction. He has history of COPD. According to EMS patient did have some diminished lung sounds he was given a breathing treatment. Patient does not have any respiratory complaints at this time. Patient continues to abuse tobacco. No other complaints at this time. Denies any suicidal or homicidal ideation. Patient is not sure what is anxious about. The ROS documented in this emergency department record has been reviewed and confirmed by me. Those systems with pertinent positive or negative responses have been documented in the HPI. All other systems are other negative and/or noncontributory. PHYSICAL EXAM: General Impression: Alert and oriented x3, not in acute distress HEENT: Normocephalic atraumatic, extra-ocular movements intact, pupils equal and reactive to light bilaterally, mucous membranes moist. Cardiovascular: Heart regular rate and rhythm Chest: Able to complete full sentences, no retractions, no tachypnea Abdomen: abdomen soft, non-tender, non-distended, no organomegaly Musculoskeletal: Pulses present and equal in all extremities, no peripheral edema Motor: no focal deficits noted Neurological: CN II-XII grossly intact, no focal motor or sensory deficits noted Skin: Intact with no visualized rashes Psych: Mildly anxious ED course: Patient is a 38-year-old male well-known to emergency department for frequent visitations presents to our ER for anxiety.. This is patient's fourth visit in our emergency department this month. Vital signs upon arrival shows heart rate of 114. Patient anxious at the bedside. Bony care blood glucose is 158. Patient observed in emergency department for one hour. Point of care blood glucose is 158. X-rays unremarkable. Reevaluated at bedside at 9:55 AM found with stable medical condition. Patient will be discharged. - Related Data Home Medications Medication Instructions Recorded Confirmed Atorvastatin Calcium [Lipitor] 20 mg PO HS 12/31/20 12/28/21 Empagliflozin [Jardiance] 25 mg PO DAILY 12/31/20 12/28/21 metFORMIN HCL [Glucophage] 1,000 mg PO BID 12/31/20 12/28/21 fluvoxaMINE [Luvox] 50 mg PO DAILY 07/17/21 12/28/21 fluvoxaMINE [Luvox] 100 mg PO HS 07/17/21 12/28/21 Potassium Chloride ER [K-Dur 20] 20 meq PO DAILY 12/16/21 12/28/21 QUEtiapine [SEROquel] 50 mg PO HS 12/16/21 12/28/21 Valbenazine Tosylate [Ingrezza 1 cap PO DAILY 12/16/21 12/28/21 40/80 MG Initiation Pack] Cholecalciferol [Vitamin D3 (125 125 mcg PO DAILY 12/28/21 12/28/21 Mcg = 5000 Iu)] Ipratropium-Albuterol Nebulize 3 ml INHALATION RT-QID PRN 12/28/21 12/28/21 [Duoneb 0.5 mg-3 mg/3 ml Soln] Omeprazole 20 mg PO DAILY 12/28/21 12/28/21 Previous Rx's Medication Instructions Recorded Budesonide-Formot 160-4.5 Mcg 2 puff INHALATION RT-BID each 08/03/21 [Symbicort 160-4.5 Mcg Inhaler] Furosemide [Lasix] 40 mg PO DAILY tab 08/03/21 Albuterol Sulfate [Ventolin HFA] 2 puff INHALATION RT-QID PRN #1 12/20/21 each Allergies Allergy/AdvReac Type Severity Reaction Status Date / Time metals Allergy Rash/Hives, Uncoded 12/30/21 09:23 swelling Review of Systems ROS Statement: Those systems with pertinent positive or pertinent negative responses have been documented in the HPI. ROS Other: All systems not noted in ROS Statement are negative. Past Medical History Past Medical History: Asthma, COPD, Diabetes Mellitus, GERD/Reflux, Hypertension, Skin Disorder Additional Past Medical History / Comment(s): hx spina bifida, spinal stenosis, pancreatitis. scrotal wound (to start on antibiotics 10/31/15), migraines, uses wheelchair-can ambulate but does fall at times. Tardive Dyskinesia History of Any Multi-Drug Resistant Organisms: None Reported Past Surgical History: Back Surgery Additional Past Surgical History / Comment(s): back surgery- 3 rods, 4 screws Past Anesthesia/Blood Transfusion Reactions: No Reported Reaction Past Psychological History: ADD/ADHD, Anxiety, Bipolar Smoking Status: Current every day smoker Past Alcohol Use History: Abuse Past Drug Use History: None Reported - Past Family History Mother Family Medical History: Cancer Father Family Medical History: Cancer General Exam Limitations: no limitations Course Vital Signs 12/30/21 08:53 Temperature 98.2 F Pulse Rate 114 H Respiratory 24 Rate Blood Pressure 133/92 O2 Sat by Pulse 98 Oximetry Medical Decision Making - Lab Data Lab Results 12/30/21 Range/Units 09:13 POC Glucose (mg/dL) 158 H (70-110) mg/dL POC Glu Ripper Operator ID Lucien Mendez Disposition Clinical Impression: Anxiety reaction Disposition: HOME SELF-CARE Condition: Good Instructions (If sedation given, give patient instructions): Generalized Anxiety Disorder (ED) Is patient prescribed a controlled substance at d/c from ED?: No Referrals: Anne Sosa MD [Primary Care Provider] - 1-2 days Time of Disposition: 09:54
[2021-12-30 09:16] VITALS: TEMP 98.2
[2021-12-30 09:16] LABS: Glucose,Whole Blood 158 mg/dL (70-110)
--- NOTE | 2021-12-30 10:26 | XR ---
EXAMINATION TYPE: XR chest 1V portable DATE OF EXAM: 12/30/2021 COMPARISON: 12/28/2021 INDICATION: COPD short of breath TECHNIQUE: Single frontal view of the chest is obtained. FINDINGS: The heart size is normal. The pulmonary vasculature is normal. The lungs are clear. IMPRESSION: 1. No acute pulmonary process.
[2021-12-30 10:44] VITALS: BP 147/82; PULSE 88; RESP 17
== END 2021-12-30 10:44 | disposition home or self-care (01) ==
LOC: EC 08:51
DX: F41.9 Anxiety disorder, unspecified (principal); I10 Essential (primary) hypertension; J44.9 Chronic obstructive pulmonary disease, unspecified; E11.9 Type 2 diabetes mellitus without complications; K21.9 Gastro-esophageal reflux disease without esophagitis; F90.9 Attention-deficit hyperactivity disorder, unspecified type; F32.A Depression, unspecified; F17.200 Nicotine dependence, unspecified, uncomplicated; F10.10 Alcohol abuse, uncomplicated; Z79.83 Long term (current) use of bisphosphonates; Z79.51 Long term (current) use of inhaled steroids; Z79.899 Other long term (current) drug therapy; Z79.84 Long term (current) use of oral hypoglycemic drugs
CPT/HCPCS: 36415; 71045; 99283; 96372; J2060

== ENCOUNTER 2021-12-31 06:51 | Emergency (ER) | payer MEDICARE, OTHER ==
[2021-12-31 07:01] VITALS: BP 134/88; PULSE 122; RESP 30; TEMP 98.2
[2021-12-31] MEDS ORDERED: SODIUM CHLORIDE 0.9% 1,000 ML IV STA (07:02)
--- NOTE | 2021-12-31 07:14 | ED ---
General Adult HPI - General Chief complaint: Shortness of Breath Stated complaint: Difficulty Breathing Time Seen by Provider: 12/31/21 06:57 Source: patient, EMS, RN notes reviewed Mode of arrival: EMS Limitations: no limitations - History of Present Illness Initial comments: This a 46-year-old male presents emergency Department via EMS for evaluation a nxiety, shortness of breath. His been a recurrent issue. Patient was admitted to the hospital and signed AGAINST MEDICAL ADVICE. Patient is requesting any sort of benzodiazepine including Klonopin, Ativan. Patient states that he needs multiple medications like this daily. Patient did not follow-up was primary care physician. He denies chest pain or palpitations. Patient was screaming at staff to many medications. Patient denies fevers chills no nausea vomiting diarrhea constipation. - Related Data Home Medications Medication Instructions Recorded Confirmed Atorvastatin Calcium [Lipitor] 20 mg PO HS 12/31/20 12/28/21 Empagliflozin [Jardiance] 25 mg PO DAILY 12/31/20 12/28/21 metFORMIN HCL [Glucophage] 1,000 mg PO BID 12/31/20 12/28/21 fluvoxaMINE [Luvox] 50 mg PO DAILY 07/17/21 12/28/21 fluvoxaMINE [Luvox] 100 mg PO HS 07/17/21 12/28/21 Potassium Chloride ER [K-Dur 20] 20 meq PO DAILY 12/16/21 12/28/21 QUEtiapine [SEROquel] 50 mg PO HS 12/16/21 12/28/21 Valbenazine Tosylate [Ingrezza 1 cap PO DAILY 12/16/21 12/28/21 40/80 MG Initiation Pack] Cholecalciferol [Vitamin D3 (125 125 mcg PO DAILY 12/28/21 12/28/21 Mcg = 5000 Iu)] Ipratropium-Albuterol Nebulize 3 ml INHALATION RT-QID PRN 12/28/21 12/28/21 [Duoneb 0.5 mg-3 mg/3 ml Soln] Omeprazole 20 mg PO DAILY 12/28/21 12/28/21 Previous Rx's Medication Instructions Recorded Budesonide-Formot 160-4.5 Mcg 2 puff INHALATION RT-BID each 08/03/21 [Symbicort 160-4.5 Mcg Inhaler] Furosemide [Lasix] 40 mg PO DAILY tab 08/03/21 Albuterol Sulfate [Ventolin HFA] 2 puff INHALATION RT-QID PRN #1 12/20/21 each Allergies Allergy/AdvReac Type Severity Reaction Status Date / Time metals Allergy Rash/Hives, Uncoded 12/31/21 06:54 swelling Review of Systems ROS Statement: Those systems with pertinent positive or pertinent negative responses have been documented in the HPI. ROS Other: All systems not noted in ROS Statement are negative. Past Medical History Past Medical History: Asthma, COPD, Diabetes Mellitus, GERD/Reflux, Hypertension, Skin Disorder Additional Past Medical History / Comment(s): hx spina bifida, spinal stenosis, pancreatitis. scrotal wound (to start on antibiotics 10/31/15), migraines, uses wheelchair-can ambulate but does fall at times. Tardive Dyskinesia History of Any Multi-Drug Resistant Organisms: None Reported Past Surgical History: Back Surgery Additional Past Surgical History / Comment(s): back surgery- 3 rods, 4 screws Past Anesthesia/Blood Transfusion Reactions: No Reported Reaction Past Psychological History: ADD/ADHD, Anxiety, Bipolar Smoking Status: Current every day smoker Past Alcohol Use History: Abuse Past Drug Use History: None Reported - Past Family History Mother Family Medical History: Cancer Father Family Medical History: Cancer General Exam Limitations: no limitations General appearance: alert, in no apparent distress Head exam: Present: atraumatic, normocephalic, normal inspection Eye exam: Present: normal appearance, PERRL, EOMI. Absent: scleral icterus, conjunctival injection, periorbital swelling ENT exam: Present: normal exam, normal oropharynx, mucous membranes moist Neck exam: Present: normal inspection, full ROM. Absent: tenderness, meningismus, lymphadenopathy Respiratory exam: Present: wheezes. Absent: normal lung sounds bilaterally, respiratory distress, rales, rhonchi, stridor Cardiovascular Exam: Present: normal rhythm, tachycardia, normal heart sounds. Absent: systolic murmur, diastolic murmur, rubs, gallop, clicks GI/Abdominal exam: Present: soft, normal bowel sounds. Absent: distended, tenderness, guarding, rebound, rigid Course Vital Signs 12/31/21 06:54 Temperature 98.2 F Pulse Rate 122 H Respiratory 30 H Rate Blood Pressure 134/88 O2 Sat by Pulse 97 Oximetry Medical Decision Making - Medical Decision Making 46-year-old male presented for anxiety, COPD issues. Patient refuses care stating that he needs Klonopin or Ativan. I did explain that we need to evaluate him with labs, EKG and chest x-ray patient was refusing this treatment stating that he needed only medications. I did expand and needs a follow-up with PCP regarding his anxiety medications. Patient leaves AGAINST MEDICAL ADVICE. - Lab Data Result diagrams: 12/31/21 07:08 Lab Results 12/31/21 Range/Units 07:08 WBC 17.4 H (3.8-10.6) k/uL RBC 5.04 (4.30-5.90) m/uL Hgb 15.9 (13.0-17.5) gm/dL Hct 48.1 (39.0-53.0) % MCV 95.5 (80.0-100.0) fL MCH 31.5 (25.0-35.0) pg MCHC 33.0 (31.0-37.0) g/dL RDW 13.6 (11.5-15.5) % Plt Count 306 (150-450) k/uL MPV 7.1 Neutrophils % 87 % Lymphocytes % 7 % Monocytes % 5 % Eosinophils % 1 % Basophils % 0 % Neutrophils # 15.1 H (1.3-7.7) k/uL Lymphocytes # 1.2 (1.0-4.8) k/uL Monocytes # 0.8 (0-1.0) k/uL Eosinophils # 0.1 (0-0.7) k/uL Basophils # 0.0 (0-0.2) k/uL Disposition Clinical Impression: Drug-seeking behavior, COPD (chronic obstructive pulmonary disease) Disposition: Left Against Medical Advice Referrals: Anne Sosa MD [Primary Care Provider] - 1-2 days Time of Disposition: 07:23
[2021-12-31 07:18] LABS: Basophils % (A) 0 %; Eosinophils # (A) 0.1 k/uL (0-0.7); Eosinophils % (A) 1 %; HCT 48.1 % (39.0-53.0); HGB 15.9 gm/dL (13.0-17.5); Lymphocytes # (A) 1.2 k/uL (1.0-4.8); Lymphocytes % (A) 7 %; MCH 31.5 pg (25.0-35.0); MCV 95.5 fL (80.0-100.0); Mean Platelet Volume 7.1; Monocytes # (A) 0.8 k/uL (0-1.0); Monocytes % (A) 5 %; Neutrophils # (A) 15.1 k/uL (1.3-7.7); Neutrophils % (A) 87 %; Platelet Count 306 k/uL (150-450); RBC 5.04 m/uL (4.30-5.90); RDW 13.6 % (11.5-15.5); WBC 17.4 k/uL (3.8-10.6)
[2021-12-31 07:26] LABS: Partial Thromboplastin Time 22.8 sec (22.0-30.0); Prothrombin Time 10.9 sec (9.0-12.0)
[2021-12-31 07:35] LABS: ALT 14 U/L (4-49); AST 15 U/L (17-59); African American GFR (CKD) >90 (>60 ml/min/1.73 sqM); Albumin 3.8 g/dL (3.5-5.0); Alkaline Phosphatase 139 U/L (38-126); Anion Gap 7 mmol/L; Blood Urea Nitrogen 14 mg/dL (9-20); Calcium 9.1 mg/dL (8.4-10.2); Carbon Dioxide 33 mmol/L (22-30); Chloride 96 mmol/L (98-107); Glucose 144 mg/dL (74-99); Magnesium 1.8 mg/dL (1.6-2.3); Non-African American GFR(CKD) >90 (>60 ml/min/1.73 sqM); Potassium 3.5 mmol/L (3.5-5.1); Sodium 136 mmol/L (137-145); Total Bilirubin 0.4 mg/dL (0.2-1.3)
== END 2021-12-31 07:23 | disposition left against medical advice (07) ==
LOC: EC 06:51
DX: J44.9 Chronic obstructive pulmonary disease, unspecified (principal); F41.9 Anxiety disorder, unspecified; F90.9 Attention-deficit hyperactivity disorder, unspecified type; F17.200 Nicotine dependence, unspecified, uncomplicated; E11.9 Type 2 diabetes mellitus without complications; K21.9 Gastro-esophageal reflux disease without esophagitis; I10 Essential (primary) hypertension; Z79.899 Other long term (current) drug therapy; Z79.84 Long term (current) use of oral hypoglycemic drugs; Z72.89 Other problems related to lifestyle
CPT/HCPCS: 36415; 80053; 83735; 84484; 85025; 85610; 85730; 99284

== ENCOUNTER 2022-01-01 12:19 | Inpatient (IN) | payer MEDICARE, OTHER ==
[2022-01-01] MEDS ORDERED: SUCCINYLCHOLINE CHLORIDE 200 MG/10 ML VIAL IV ONE (12:26)
[2022-01-01] MEDS ORDERED: MIDAZOLAM 1 MG/ML 5 ML VIAL IV STA (12:27)
[2022-01-01] MEDS ORDERED: SODIUM CHLORIDE 0.9% 1,000 ML IV ONE ×2 (12:31→14:02)
[2022-01-01 12:44] LABS: Glucose,Whole Blood 109 mg/dL (70-110)
--- NOTE | 2022-01-01 12:44 | ED ---
General Adult HPI - General Chief complaint: Neuro Symptoms/Deficit Stated complaint: overdose Time Seen by Provider: 01/01/22 12:19 Source: patient, EMS, RN notes reviewed, old records reviewed Mode of arrival: EMS Limitations: altered mental status - History of Present Illness Initial comments: This is a 46-year-old male who presents emergency Department unresponsive according to EMS when they got the scene the patient was completely unresponsive sugar was 170 patient did receive Narcan had no effect. Patient is not verbal not opening his eyes spontaneously not moving spontaneously they bagged the patient on the way in. Patient is known to be a drinker and supposedly drank quite a bit today. Patient is often looking for Klonopin according to EMS but as far as any other drug use today there is no definitive history on that. No one came with the patient and there is no other history available this time - Related Data Home Medications Medication Instructions Recorded Confirmed Atorvastatin Calcium [Lipitor] 20 mg PO HS 12/31/20 01/01/22 Empagliflozin [Jardiance] 25 mg PO DAILY 12/31/20 01/01/22 metFORMIN HCL [Glucophage] 1,000 mg PO BID 12/31/20 01/01/22 fluvoxaMINE [Luvox] 50 mg PO DAILY 07/17/21 01/01/22 fluvoxaMINE [Luvox] 100 mg PO HS 07/17/21 01/01/22 Potassium Chloride ER [K-Dur 20] 20 meq PO DAILY 12/16/21 01/01/22 QUEtiapine [SEROquel] 50 mg PO HS 12/16/21 01/01/22 Valbenazine Tosylate [Ingrezza 1 cap PO DAILY 12/16/21 01/01/22 40/80 MG Initiation Pack] Cholecalciferol [Vitamin D3 (125 125 mcg PO DAILY 12/28/21 01/01/22 Mcg = 5000 Iu)] Ipratropium-Albuterol Nebulize 3 ml INHALATION RT-QID PRN 12/28/21 01/01/22 [Duoneb 0.5 mg-3 mg/3 ml Soln] Omeprazole 20 mg PO DAILY 12/28/21 01/01/22 Previous Rx's Medication Instructions Recorded Budesonide-Formot 160-4.5 Mcg 2 puff INHALATION RT-BID each 06/03/22 [Symbicort 160-4.5 Mcg Inhaler] Furosemide [Lasix] 40 mg PO DAILY tab 08/03/21 Albuterol Sulfate [Ventolin HFA] 2 puff INHALATION RT-QID PRN #1 12/20/21 each Allergies Allergy/AdvReac Type Severity Reaction Status Date / Time metals Allergy Rash/Hives, Uncoded 12/31/21 06:54 swelling Review of Systems ROS Statement: Those systems with pertinent positive or pertinent negative responses have been documented in the HPI. ROS Other: All systems not noted in ROS Statement are negative. Past Medical History Past Medical History: Asthma, COPD, Diabetes Mellitus, GERD/Reflux, Hypertension, Skin Disorder Additional Past Medical History / Comment(s): hx spina bifida, spinal stenosis, pancreatitis. scrotal wound (to start on antibiotics 10/31/15), migraines, uses wheelchair-can ambulate but does fall at times. Tardive Dyskinesia History of Any Multi-Drug Resistant Organisms: None Reported Past Surgical History: Back Surgery Additional Past Surgical History / Comment(s): back surgery- 3 rods, 4 screws Past Anesthesia/Blood Transfusion Reactions: No Reported Reaction Past Psychological History: ADD/ADHD, Anxiety, Bipolar Smoking Status: Current every day smoker Past Alcohol Use History: Abuse Past Drug Use History: None Reported - Past Family History Mother Family Medical History: Cancer Father Family Medical History: Cancer General Exam - General Exam Comments Initial Comments: GENERAL: Patient is well-developed and well-nourished. Patient is nontoxic and well- hydrated and is in no acute distress. ENT: Neck is soft and supple. No significant lymphadenopathy is noted. Oropharynx is clear. Moist mucous membranes. EYES: The sclera were anicteric and conjunctiva were pink and moist. Pupils are fixed and measured about 4 mm and equal bilaterally PULMONARY: Is being bagged breath sounds can be here bilaterally anteriorly without any wheezing CARDIOVASCULAR: There is a regular rate and rhythm without any murmurs gallops or rubs. ABDOMEN: Soft and nontender with normal bowel sounds. SKIN: Skin is clear with no lesions or rashes and otherwise unremarkable. NEUROLOGIC: Patient has a GCS of 3 MUSCULOSKELETAL: Unable to assess because he is not moving any extremities and he is not alert LYMPHATICS: No significant lymphadenopathy is noted PSYCHIATRIC: Unable to assess Limitations: altered mental status Course Vital Signs 01/01/22 01/01/2222 12:21 12:30 12:34 Temperature 98.2 F Pulse Rate 87 Respiratory 16 Rate Blood Pressure 131/78 O2 Sat by Pulse 97 Oximetry Fraction of 100 100 Inspired Oxygen (FIO2) 01/01/22 01/01/22 01/01/22 12:55 13:12 13:34 Temperature Pulse Rate 80 80 Respiratory 16 20 Rate Blood Pressure 124/80 85/51 O2 Sat by Pulse 99 98 Oximetry Fraction of 50 Inspired Oxygen (FIO2) 01/01/22 14:57 Temperature Pulse Rate Respiratory Rate Blood Pressure O2 Sat by Pulse Oximetry Fraction of 50 Inspired Oxygen (FIO2) Procedures - Intubation Sedative: Versed Paralytic: Succinylcholine Laryngoscope: Guevara Size: 4 ET Tube Size: 8 ET Tube Uncuffed: No Tube Secured Location: teeth Tube Placement Confirmation: visualized tube passing through cords, equal breath sounds bilaterally, no breath sounds over epigastrium, confirmation by capnometry Patient Tolerated Procedure: well Intubation Complications: none Medical Decision Making - Medical Decision Making EKG interpreted by me. EKG shows sinus rhythm at 89 bpm IA interval 149 QRS is 105 Q-T intervals 357 QTC is 44. Patient's EKG shows no ST segment elevation or depression. CT of the brain shows no acute abnormality. Patient's chest x-ray shows left lower lobe pneumonia. This occurred at 2:17 PM I gave the patient antibiotics at this time or so ordered a lactic acid and blood cultures. I spoke with Dr. Crain about sending the patient the ICU he was in agreement to seeing the patient received. I spoke with Dr. canada about it patient admitted the patient wrote admitting orders per patient also had an elevated troponin and I did serial troponins I also put the patient on Ativan protocol for alcohol withdrawal. I also consult to cardiology - Lab Data Result diagrams: 01/01/22 12:39 01/01/22 12:39 Lab Results 01/01/22 01/01/22 01/01/22 Range/Units 12:39 12:39 12:39 WBC 20.7 H (3.8-10.6) k/uL RBC 5.30 (4.30-5.90) m/uL Hgb 16.4 (13.0-17.5) gm/dL Hct 51.8 (39.0-53.0) % MCV 97.7 (80.0-100.0) fL MCH 30.8 (25.0-35.0) pg MCHC 31.6 (31.0-37.0) g/dL RDW 13.9 (11.5-15.5) % Plt Count 348 (150-450) k/uL MPV 7.2 Neutrophils % 84 % Lymphocytes % 10 % Monocytes % 4 % Eosinophils % 0 % Basophils % 0 % Neutrophils # 17.4 H (1.3-7.7) k/uL Lymphocytes # 2.1 (1.0-4.8) k/uL Monocytes # 0.8 (0-1.0) k/uL Eosinophils # 0.1 (0-0.7) k/uL Basophils # 0.1 (0-0.2) k/uL Hypochromasia Slight PT 10.2 (9.0-12.0) sec INR 0.9 (<1.2) APTT 23.7 (22.0-30.0) sec Sample Site ABG pH (7.35-7.45) ABG pCO2 (35-45) mmHg ABG pO2 (83-108) mmHg ABG HCO3 (21-25) mmol/L ABG Total CO2 (19-24) mmol/L ABG O2 Saturation (94-97) % ABG Base Excess mmol/L Jean Pierre Test FiO2 % Sodium (137-145) mmol/L Potassium (3.5-5.1) mmol/L Chloride (98-107) mmol/L Carbon Dioxide (22-30) mmol/L Anion Gap mmol/L BUN (9-20) mg/dL Creatinine (0.66-1.25) mg/dL Est GFR (CKD-EPI)AfAm (>60 ml/min/1.73 sqM) Est GFR (CKD-EPI)NonAf (>60 ml/min/1.73 sqM) Glucose (74-99) mg/dL POC Glucose (mg/dL) (70-110) mg/dL POC Glu Or Manager ID Calcium (8.4-10.2) mg/dL Total Bilirubin (0.2-1.3) mg/dL AST (17-59) U/L ALT (4-49) U/L Alkaline Phosphatase (38-126) U/L Ammonia (<30) umol/L Troponin I (0.000-0.034) ng/mL Total Protein (6.3-8.2) g/dL Albumin (3.5-5.0) g/dL Urine Opiates Screen Not Detected (NotDetected) Ur Oxycodone Screen Not Detected (NotDetected) Urine Methadone Screen Not Detected (NotDetected) Ur Propoxyphene Screen Not Detected (NotDetected) Ur Barbiturates Screen Not Detected (NotDetected) U Tricyclic Antidepress Detected H (NotDetected) Ur Phencyclidine Scrn Not Detected (NotDetected) Ur Amphetamines Screen Not Detected (NotDetected) U Methamphetamines Scrn Not Detected (NotDetected) U Benzodiazepines Scrn Not Detected (NotDetected) Urine Cocaine Screen Not Detected (NotDetected) U Marijuana (THC) Screen Not Detected (NotDetected) Serum Alcohol mg/dL 01/01/22 01/01/22 01/01/22 Range/Units 12:39 12:39 12:39 WBC (3.8-10.6) k/uL RBC (4.30-5.90) m/uL Hgb (13.0-17.5) gm/dL Hct (39.0-53.0) % MCV (80.0-100.0) fL MCH (25.0-35.0) pg MCHC (31.0-37.0) g/dL RDW (11.5-15.5) % Plt Count (150-450) k/uL MPV Neutrophils % % Lymphocytes % % Monocytes % % Eosinophils % % Basophils % % Neutrophils # (1.3-7.7) k/uL Lymphocytes # (1.0-4.8) k/uL Monocytes # (0-1.0) k/uL Eosinophils # (0-0.7) k/uL Basophils # (0-0.2) k/uL Hypochromasia PT (9.0-12.0) sec INR (<1.2) APTT (22.0-30.0) sec Sample Site ABG pH (7.35-7.45) ABG pCO2 (35-45) mmHg ABG pO2 (83-108) mmHg ABG HCO3 (21-25) mmol/L ABG Total CO2 (19-24) mmol/L ABG O2 Saturation (94-97) % ABG Base Excess mmol/L Jean Pierre Test FiO2 % Sodium 139 (137-145) mmol/L Potassium 4.1 (3.5-5.1) mmol/L Chloride 89 L (98-107) mmol/L Carbon Dioxide 31 H (22-30) mmol/L Anion Gap 19 mmol/L BUN 16 (9-20) mg/dL Creatinine 0.54 L (0.66-1.25) mg/dL Est GFR (CKD-EPI)AfAm >90 (>60 ml/min/1.73 sqM) Est GFR (CKD-EPI)NonAf >90 (>60 ml/min/1.73 sqM) Glucose 120 H (74-99) mg/dL POC Glucose (mg/dL) (70-110) mg/dL POC Glu Or Manager ID Calcium 8.4 (8.4-10.2) mg/dL Total Bilirubin 0.4 (0.2-1.3) mg/dL AST 30 (17-59) U/L ALT 18 (4-49) U/L Alkaline Phosphatase 130 H (38-126) U/L Ammonia 18 (<30) umol/L Troponin I 0.069 H* (0.000-0.034) ng/mL Total Protein 6.5 (6.3-8.2) g/dL Albumin 4.3 (3.5-5.0) g/dL Urine Opiates Screen (NotDetected) Ur Oxycodone Screen (NotDetected) Urine Methadone Screen (NotDetected) Ur Propoxyphene Screen (NotDetected) Ur Barbiturates Screen (NotDetected) U Tricyclic Antidepress (NotDetected) Ur Phencyclidine Scrn (NotDetected) Ur Amphetamines Screen (NotDetected) U Methamphetamines Scrn (NotDetected) U Benzodiazepines Scrn (NotDetected) Urine Cocaine Screen (NotDetected) U Marijuana (THC) Screen (NotDetected) Serum Alcohol 359 H* mg/dL 01/01/22 01/01/22 Range/Units 12:42 13:04 WBC (3.8-10.6) k/uL RBC (4.30-5.90) m/uL Hgb (13.0-17.5) gm/dL Hct (39.0-53.0) % MCV (80.0-100.0) fL MCH (25.0-35.0) pg MCHC (31.0-37.0) g/dL RDW (11.5-15.5) % Plt Count (150-450) k/uL MPV Neutrophils % % Lymphocytes % % Monocytes % % Eosinophils % % Basophils % % Neutrophils # (1.3-7.7) k/uL Lymphocytes # (1.0-4.8) k/uL Monocytes # (0-1.0) k/uL Eosinophils # (0-0.7) k/uL Basophils # (0-0.2) k/uL Hypochromasia PT (9.0-12.0) sec INR (<1.2) APTT (22.0-30.0) sec Sample Site RRAD ABG pH 7.27 L (7.35-7.45) ABG pCO2 65 H (35-45) mmHg ABG pO2 356 H (83-108) mmHg ABG HCO3 30 H (21-25) mmol/L ABG Total CO2 32 H (19-24) mmol/L ABG O2 Saturation 100.0 H (94-97) % ABG Base Excess 2.8 mmol/L Jean Pierre Test Yes FiO2 100 % Sodium (137-145) mmol/L Potassium (3.5-5.1) mmol/L Chloride (98-107) mmol/L Carbon Dioxide (22-30) mmol/L Anion Gap mmol/L BUN (9-20) mg/dL Creatinine (0.66-1.25) mg/dL Est GFR (CKD-EPI)AfAm (>60 ml/min/1.73 sqM) Est GFR (CKD-EPI)NonAf (>60 ml/min/1.73 sqM) Glucose (74-99) mg/dL POC Glucose (mg/dL) 109 (70-110) mg/dL POC Glu Or Manager ID Ayana Lainez Calcium (8.4-10.2) mg/dL Total Bilirubin (0.2-1.3) mg/dL AST (17-59) U/L ALT (4-49) U/L Alkaline Phosphatase (38-126) U/L Ammonia (<30) umol/L Troponin I (0.000-0.034) ng/mL Total Protein (6.3-8.2) g/dL Albumin (3.5-5.0) g/dL Urine Opiates Screen (NotDetected) Ur Oxycodone Screen (NotDetected) Urine Methadone Screen (NotDetected) Ur Propoxyphene Screen (NotDetected) Ur Barbiturates Screen (NotDetected) U Tricyclic Antidepress (NotDetected) Ur Phencyclidine Scrn (NotDetected) Ur Amphetamines Screen (NotDetected) U Methamphetamines Scrn (NotDetected) U Benzodiazepines Scrn (NotDetected) Urine Cocaine Screen (NotDetected) U Marijuana (THC) Screen (NotDetected) Serum Alcohol mg/dL Critical Care Time Critical Care Time: Yes Total Critical Care Time: 35 Disposition Clinical Impression: Alcohol intoxication, Unresponsive, Elevated troponin, Pneumonia Disposition: ADMITTED IP TO THIS HOSP Referrals: Anne Sosa MD [Primary Care Provider] - 1-2 days Time of Disposition: 15:11
[2022-01-01 12:47] LABS: Basophils # (A) 0.1 k/uL (0-0.2); Basophils % (A) 0 %; Eosinophils # (A) 0.1 k/uL (0-0.7); Eosinophils % (A) 0 %; HCT 51.8 % (39.0-53.0); HGB 16.4 gm/dL (13.0-17.5); Hypochromasia Slight; Lymphocytes # (A) 2.1 k/uL (1.0-4.8); Lymphocytes % (A) 10 %; MCH 30.8 pg (25.0-35.0); MCHC 31.6 g/dL (31.0-37.0); MCV 97.7 fL (80.0-100.0); Mean Platelet Volume 7.2; Monocytes # (A) 0.8 k/uL (0-1.0); Monocytes % (A) 4 %; Neutrophils # (A) 17.4 k/uL (1.3-7.7); Neutrophils % (A) 84 %; Platelet Count 348 k/uL (150-450); RDW 13.9 % (11.5-15.5); WBC 20.7 k/uL (3.8-10.6)
[2022-01-01 12:58] LABS: INR 0.9 (<1.2); Partial Thromboplastin Time 23.7 sec (22.0-30.0); Prothrombin Time 10.2 sec (9.0-12.0)
[2022-01-01 13:03] LABS: ALT 18 U/L (4-49); AST 30 U/L (17-59); African American GFR (CKD) >90 (>60 ml/min/1.73 sqM); Albumin 4.3 g/dL (3.5-5.0); Alkaline Phosphatase 130 U/L (38-126); Anion Gap 19 mmol/L; Blood Urea Nitrogen 16 mg/dL (9-20); Calcium 8.4 mg/dL (8.4-10.2); Carbon Dioxide 31 mmol/L (22-30); Chloride 89 mmol/L (98-107); Glucose 120 mg/dL (74-99); Non-African American GFR(CKD) >90 (>60 ml/min/1.73 sqM); Potassium 4.1 mmol/L (3.5-5.1); Sodium 139 mmol/L (137-145); Total Bilirubin 0.4 mg/dL (0.2-1.3); Total Protein 6.5 g/dL (6.3-8.2)
[2022-01-01 13:07] LABS: ABG Base Excess 2.8 mmol/L; ABG HCO3 30 mmol/L (21-25); ABG PCO2 65 mmHg (35-45); ABG PH 7.27 (7.35-7.45); ABG PO2 356 mmHg (83-108); ABG TCO2 32 mmol/L (19-24); Allen Test Performed? Yes
[2022-01-01] MEDS ORDERED: PROPOFOL 10 MG/ML 20 ML VIAL IV ONE (13:09)
--- NOTE | 2022-01-01 13:19 | XR ---
EXAMINATION TYPE: XR chest 1V portable DATE OF EXAM: 01/01/2022 COMPARISON: 12/30/2021 HISTORY: Shortness of breath TECHNIQUE: Single frontal view of the chest is obtained. FINDINGS: NG tube seen into the left upper quadrant. ET tube 3.3 cm above willian. Left lower lobe in filtrate and small effusion. No pneumothorax. Heart size is normal. No overt failure. IMPRESSION: Left lower lobe infiltrate and small effusion correlate for pneumonia. ET tube placement approximately 3.3 cm above willian.
[2022-01-01 13:24] LABS: Alcohol 359 mg/dL
[2022-01-01 13:32] LABS: Amphetamine Screen,Urine Not Detected (NotDetected); Barbiturate Screen,Urine Not Detected (NotDetected); Benzodiazepines Screen,Urine Not Detected (NotDetected); Cocaine Screen,Urine Not Detected (NotDetected); Methadone Screen, Urine Not Detected (NotDetected); Opiate Screen,Urine Not Detected (NotDetected); Oxycodone Screen, Urine Not Detected (NotDetected); Phencyclidine Screen,Urine Not Detected (NotDetected); Tricyclic Antidepressant,Urine Detected (NotDetected); Urn Cannabinoid Scrn Not Detected (NotDetected)
--- NOTE | 2022-01-01 13:42 | CT ---
EXAMINATION TYPE: CT brain wo con DATE OF EXAM: 01/01/2022 COMPARISON: 12/16/2021 HISTORY: Altered mental status CT DLP: 1218.1 mGycm. Automated Exposure Control for Dose Reduction was Utilized. TECHNIQUE: CT scan of the head is performed without contrast. FINDINGS: There is no acute intracranial hemorrhage, mass effect, or midline shift identified. Mild ventricular system compatible with the patient's age group. Endotracheal tube noted. Orbits are symm etric and there are changes of chronic sinusitis. Trace patchy low attenuation white matter not as ap parent on today's exam. IMPRESSION: No acute intracranial hemorrhage, mass effect, or midline shift is seen. If concern for acute ischemia consider MRI.
[2022-01-01] MEDS ORDERED: SODIUM CHLORIDE 0.9% 1,000 ML IV STA (15:12)
[2022-01-01] MEDS ORDERED: NALOXONE 0.4 MG/ML 1 ML VIAL IV PRN (15:12)
--- NOTE | 2022-01-01 15:12 | P.CNPUL ---
History of Present Illness Consult date: 01/01/22 Chief complaint: Unresponsive, respiratory failure History of present illness: 46-year-old male patient who came into the emergency department unresponsive and his initial GCS score was only 3. Based on that, the patient was quickly intubated to protect his airway and he was placed on a mechanical ventilator. Post intubation, the chest x-ray showed left lower lobe pulmonary infiltrate and a small effusion and 80 tube wasn't adequate location about 3 cm above the willian. CAT scan of the brain was also done that showed no acute intracranial hemorrhage. No other acute abnormalities were noted. The bloodwork was done and the patient was found to have a white second of 20.7 with a hemoglobin of 16.4 and a platelet count of 348. Post intubation blood. Showed a pH of 7.27 with a pCO2 of 65 and a pO2 of 356 and the patient is currently on assist- control mode of mechanical ventilation at the rate of 20 and FiO2 has been dropped down to 50% with a PEEP of 5 and a tidal volume is at 500. His peak air pressures around 28. His current pulse ox is 96% on room air. He is hemodynamically stable. The sodium level is at 139 with a potassium level of 4.1 and a chloride is 89 with a serum bicarb of 31. Creatinine is at 0.5. His troponin was 0.069, LFTs were normal, urine drug screen was positive for anti- depressant tricyclic medication and the patient's serum alcohol level was 359. The patient has an extensive psychiatric history. He is also known to have a mild component of COPD. Is known to our practice. We saw him in consultation on 12/19/2021 for increased shortness of breath. He is known to have COPD with an FEV1 of 77% of predicted. Is also known to have bipolar disorder, diabetes mellitus, hypertension, ADHD, spina bifida and is a chronic smoker. He has had issues also with pancreatitis probably related to excessive alcohol drinking. He smokes every day. During his last admission, he was treated and he was discharged home on Symbicort as maintenance. His influenza screen has been negative. His Covid 19 testing during his last admission was negative. This was not done during this current admission. In terms of his mental health, the patient has been maintained on a combination of Seroquel 50 mg at bedtime,Ingreza 40/80 milligrams 1 tablet a day and fluvoxamine 100 mg at bedtime and 50 mg a morning. Review of Systems ROS unobtainable: due to endotracheal tube Past Medical History Past Medical History: Asthma, COPD, Diabetes Mellitus, GERD/Reflux, Hypertension, Skin Disorder Additional Past Medical History / Comment(s): hx spina bifida, spinal stenosis, pancreatitis. scrotal wound (to start on antibiotics 10/31/15), migraines, uses wheelchair-can ambulate but does fall at times. Tardive Dyskinesia History of Any Multi-Drug Resistant Organisms: None Reported Past Surgical History: Back Surgery Additional Past Surgical History / Comment(s): back surgery- 3 rods, 4 screws Past Anesthesia/Blood Transfusion Reactions: No Reported Reaction Past Psychological History: ADD/ADHD, Anxiety, Bipolar Smoking Status: Current every day smoker Past Alcohol Use History: Abuse Past Drug Use History: None Reported - Past Family History Mother Family Medical History: Cancer Father Family Medical History: Cancer Medications and Allergies Home Medications Medication Instructions Recorded Confirmed Type Atorvastatin Calcium [Lipitor] 20 mg PO HS 12/31/20 01/01/22 History Empagliflozin [Jardiance] 25 mg PO DAILY 12/31/20 01/01/22 History metFORMIN HCL [Glucophage] 1,000 mg PO BID 12/31/20 01/01/22 History fluvoxaMINE [Luvox] 50 mg PO DAILY 07/17/21 01/01/22 History fluvoxaMINE [Luvox] 100 mg PO HS 07/17/21 01/01/22 History Budesonide-Formot 160-4.5 Mcg 2 puff INHALATION RT-BID each 08/03/21 01/01/22 Rx [Symbicort 160-4.5 Mcg Inhaler] Furosemide [Lasix] 40 mg PO DAILY tab 08/03/21 01/01/22 Rx Potassium Chloride ER [K-Dur 20] 20 meq PO DAILY 12/16/21 01/01/22 History QUEtiapine [SEROquel] 50 mg PO HS 12/16/21 01/01/22 History Valbenazine Tosylate [Ingrezza 1 cap PO DAILY 12/16/21 01/01/22 History 40/80 MG Initiation Pack] Albuterol Sulfate [Ventolin HFA] 2 puff INHALATION RT-QID PRN #1 12/20/21 01/01/22 Rx each Cholecalciferol [Vitamin D3 (125 125 mcg PO DAILY 12/28/21 01/01/22 History Mcg = 5000 Iu)] Ipratropium-Albuterol Nebulize 3 ml INHALATION RT-QID PRN 12/28/21 01/01/22 History [Duoneb 0.5 mg-3 mg/3 ml Soln] Omeprazole 20 mg PO DAILY 12/28/21 01/01/22 History Allergies Allergy/AdvReac Type Severity Reaction Status Date / Time metals Allergy Rash/Hives, Uncoded 12/31/21 06:54 swelling Physical Exam Vitals: Vital Signs Temp Pulse Resp BP Pulse Ox FiO2 01/01/22 13:34 80 20 85/51 98 01/01/22 13:12 50 01/01/22 12:55 80 16 124/80 99 01/01/22 12:34 100 01/01/22 12:30 100 01/01/22 12:21 98.2 F 87 16 131/78 97 Intake and Output 12/31/21 01/01/22 01/01/22 22:59 06:59 14:59 Output Total 900 Balance -900 Output: Gastric Drainage 900 Other: Weight 90.718 kg GENERAL EXAM: Alert, pleasant 46-year-old male patient, on mechanical ventilation. The patient is currently on propofol running at 35 mcg/kg/m and the patient is calm and comfortable and quite successful mechanical ventilator. HEAD: Normocephalic. EYES: Normal reaction of pupils, equal size. NOSE: Clear with pink turbinates. THROAT: No erythema or exudates. NECK: No masses, no JVD. CHEST: No chest wall deformity. LUNGS: Equal air entry with bilateral end expiratory wheeze, diminished. CVS: S1 and S2 normal with no audible murmur, regular rhythm. ABDOMEN: No hepatosplenomegaly, normal bowel sounds, no guarding or rigidity. SPINE: No scoliosis or deformity SKIN: No rashes CENTRAL NERVOUS SYSTEM: No focal deficits, tone is normal in all 4 extremities. EXTREMITIES: There is no peripheral edema. No clubbing, no cyanosis. Peripheral pulses are intact. Results - Laboratory Findings CBC and BMP: 01/01/22 12:39 01/01/22 12:39 ABG WBC 20.7 k/uL (3.8-10.6) H 01/01/22 12:39 RBC 5.30 m/uL (4.30-5.90) 01/01/22 12:39 Hgb 16.4 gm/dL (13.0-17.5) 01/01/22 12:39 Hct 51.8 % (39.0-53.0) 01/01/22 12:39 MCV 97.7 fL (80.0-100.0) 01/01/22 12:39 MCH 30.8 pg (25.0-35.0) 01/01/22 12:39 MCHC 31.6 g/dL (31.0-37.0) 01/01/22 12:39 RDW 13.9 % (11.5-15.5) 01/01/22 12:39 Plt Count 348 k/uL (150-450) 01/01/22 12:39 MPV 7.2 01/01/22 12:39 Neutrophils % 84 % 01/01/22 12:39 Lymphocytes % 10 % 01/01/22 12:39 Monocytes % 4 % 01/01/22 12:39 Eosinophils % 0 % 01/01/22 12:39 Basophils % 0 % 01/01/22 12:39 Neutrophils # 17.4 k/uL (1.3-7.7) H 01/01/22 12:39 Lymphocytes # 2.1 k/uL (1.0-4.8) 01/01/22 12:39 Monocytes # 0.8 k/uL (0-1.0) 01/01/22 12:39 Eosinophils # 0.1 k/uL (0-0.7) 01/01/22 12:39 Basophils # 0.1 k/uL (0-0.2) 01/01/22 12:39 Hypochromasia Slight 01/01/22 12:39 PT 10.2 sec (9.0-12.0) 01/01/22 12:39 INR 0.9 (<1.2) 01/01/22 12:39 APTT 23.7 sec (22.0-30.0) 01/01/22 12:39 Sample Site RRAD 01/01/22 13:04 ABG pH 7.27 (7.35-7.45) L 01/01/22 13:04 ABG pCO2 65 mmHg (35-45) H 01/01/22 13:04 ABG pO2 356 mmHg (83-108) H 01/01/22 13:04 ABG HCO3 30 mmol/L (21-25) H 01/01/22 13:04 ABG Total CO2 32 mmol/L (19-24) H 01/01/22 13:04 ABG O2 Saturation 100.0 % (94-97) H 01/01/22 13:04 ABG Base Excess 2.8 mmol/L 01/01/22 13:04 Jean Pierre Test Yes 01/01/22 13:04 FiO2 100 % 01/01/22 13:04 Sodium 139 mmol/L (137-145) 01/01/22 12:39 Potassium 4.1 mmol/L (3.5-5.1) 01/01/22 12:39 Chloride 89 mmol/L (98-107) L 01/01/22 12:39 Carbon Dioxide 31 mmol/L (22-30) H 01/01/22 12:39 Anion Gap 19 mmol/L 01/01/22 12:39 BUN 16 mg/dL (9-20) 01/01/22 12:39 Creatinine 0.54 mg/dL (0.66-1.25) L 01/01/22 12:39 Est GFR (CKD-EPI)AfAm >90 (>60 ml/min/1.73 sqM) 01/01/22 12:39 Est GFR (CKD-EPI)NonAf >90 (>60 ml/min/1.73 sqM) 01/01/22 12:39 Glucose 120 mg/dL (74-99) H 01/01/22 12:39 POC Glucose (mg/dL) 109 mg/dL (70-110) 01/01/22 12:42 POC Glu [employer] ID Ayana Lainez 01/01/22 12:42 Calcium 8.4 mg/dL (8.4-10.2) 01/01/22 12:39 Total Bilirubin 0.4 mg/dL (0.2-1.3) 01/01/22 12:39 AST 30 U/L (17-59) 01/01/22 12:39 ALT 18 U/L (4-49) 01/01/22 12:39 Alkaline Phosphatase 130 U/L (38-126) H 01/01/22 12:39 Ammonia 18 umol/L (<30) 01/01/22 12:39 Troponin I 0.069 ng/mL (0.000-0.034) H* 01/01/22 12:39 Total Protein 6.5 g/dL (6.3-8.2) 01/01/22 12:39 Albumin 4.3 g/dL (3.5-5.0) 01/01/22 12:39 Urine Opiates Screen Not Detected (NotDetected) 01/01/22 12:39 Ur Oxycodone Screen Not Detected (NotDetected) 01/01/22 12:39 Urine Methadone Screen Not Detected (NotDetected) 01/01/22 12:39 Ur Propoxyphene Screen Not Detected (NotDetected) 01/01/22 12:39 Ur Barbiturates Screen Not Detected (NotDetected) 01/01/22 12:39 U Tricyclic Antidepress Detected (NotDetected) H 01/01/22 12:39 Ur Phencyclidine Scrn Not Detected (NotDetected) 01/01/22 12:39 Ur Amphetamines Screen Not Detected (NotDetected) 01/01/22 12:39 U Methamphetamines Scrn Not Detected (NotDetected) 01/01/22 12:39 U Benzodiazepines Scrn Not Detected (NotDetected) 01/01/22 12:39 Urine Cocaine Screen Not Detected (NotDetected) 01/01/22 12:39 U Marijuana (THC) Screen Not Detected (NotDetected) 01/01/22 12:39 Serum Alcohol 359 mg/dL H* 01/01/22 12:39 PT/INR, D-dimer PT 10.2 sec (9.0-12.0) 01/01/22 12:39 INR 0.9 (<1.2) 01/01/22 12:39 Abnormal lab findings: Abnormal Labs 01/01/22 01/01/22 01/01/22 12:39 12:39 12:39 WBC 20.7 H Neutrophils # 17.4 H ABG pH ABG pCO2 ABG pO2 ABG HCO3 ABG Total CO2 ABG O2 Saturation Chloride 89 L Carbon Dioxide 31 H Creatinine 0.54 L Glucose 120 H Alkaline Phosphatase 130 H Troponin I U Tricyclic Antidepress Detected H Serum Alcohol 359 H* 01/01/22 01/01/22 12:39 13:04 WBC Neutrophils # ABG pH 7.27 L ABG pCO2 65 H ABG pO2 356 H ABG HCO3 30 H ABG Total CO2 32 H ABG O2 Saturation 100.0 H Chloride Carbon Dioxide Creatinine Glucose Alkaline Phosphatase Troponin I 0.069 H* U Tricyclic Antidepress Serum Alcohol - Diagnostic Findings Chest x-ray: image reviewed Assessment and Plan Plan: Acute unresponsiveness, could be related to acute alcohol intoxication. Serum alcohol level was above 350. Hemodynamically the patient was stable. The patient had a CAT scan of the brain that was negative. Urine drug screen was positive for tricyclic antidepressants otherwise negative. He was given Narcan and he had no response to that. Acute hypoxic/hypercapnic respiratory failure, currently intubated on a mechanical ventilator Left lower lobe pulmonary infiltrate/pneumonia, consider aspiration COPD with an FEV1 of 77% predicted Diabetes mellitus Hypertension History of chronic bipolar disorder, chronic anxiety History of alcohol abuse Spina bifida Chronic smoker Previous history of pancreatitis Migraines Mobility difficulties as the patient has issues with falls History of back surgery Plan Keep the patient on propofol for now for sedation Continue mechanical ventilation DuoNeb nebulized treatments [id number] IV Solu-Medrol 60 mg every 6 hours IV Zosyn covering the patient for aspiration Lovenox 40 mg subcu portably prophylaxis Insulin sliding scale coverage Give the patient IV fluids and the patient is currently on normal saline at the rate of 150 mL an hour after being given a total of 2 L bolus Initiate enteral feeding for nutritional support IV Protonix Nicotine patches Chest x-ray in a.m. Blood gases in the morning We'll follow Time with Patient: Greater than 30
[2022-01-01] MEDS ORDERED: PIPERACILLIN-TAZOBACTAM 3.375 GM in SODIUM CHLORIDE 0.9% 100 ML IVPB STA (15:13)
[2022-01-01 16:10] LABS: Glucose,Whole Blood 65 mg/dL (70-110)
[2022-01-01] MEDS ORDERED: DEXTROSE 50% SYRINGE 50 ML IVP PRN ×4 (17:04→17:24)
[2022-01-01 17:34] LABS: Glucose,Whole Blood 72 mg/dL (70-110)
[2022-01-01] MEDS: INSULIN ASPART (NovoLOG) 100 UNIT/ML VIAL SQ SCH (17:35)
[2022-01-01] MEDS: NOREPINEPHRINE 4 MG in SODIUM CHLORIDE 0.9% 250 ML IV SCH (17:36)
[2022-01-01] MEDS: methylPREDNISolone SOD SUCCI 125 MG/2 ML VIAL IV SCH (17:43)
[2022-01-01] MEDS: ENOXAPARIN 40 MG/0.4 ML SYRINGE SQ SCH (17:43)
[2022-01-01 20:20] LABS: Glucose,Whole Blood 70 mg/dL (70-110)
[2022-01-01] MEDS: PANTOPRAZOLE 40 MG/10 ML VIAL IVP SCH (20:22)
[2022-01-01] MEDS: IPRATROPIUM-ALBUTEROL 3 ML NEB INHALATION SCH (20:55)
[2022-01-01] MEDS ORDERED: CHLORHEXIDINE GLUCONATE 15 ML CUP MUCOUS MEM SCH (21:00)
[2022-01-01] MEDS ORDERED: fentaNYL (PF). 1,000 MCG in SODIUM CHLORIDE 0.9% 80 ML IV SCH (22:00)
[2022-01-02 00:14] LABS: Glucose,Whole Blood 87 mg/dL (70-110)
[2022-01-02] MEDS: IPRATROPIUM-ALBUTEROL 3 ML NEB INHALATION SCH ×6 (00:25→20:17)
--- NOTE | 2022-01-02 00:35 | P.HPIM ---
History of Present Illness This is a pleasant 46 years old male with past medical history of Asthma, COPD, Diabetes Mellitus, GERD/Reflux, Hypertension, hx spina bifida, spinal stenosis, pancreatitis. , uses wheelchair-can ambulate but does fall at times. ADD/ADHD, Anxiety, Bipolar, Tardive Dyskinesia, back surgery, Current every day smoker Patient presents with altered mental status and unresponsiveness Altered mental status, mostly secondary to metabolic/toxic encephalopathy patient is afebrile and blood pressure is stable. Labs showed leukocytosis of 20.7. PH 7.2, pCO2-65. Lactic acid at 2.7. Alcohol level is elevated at 359 Urine drug screen is positive for tricyclic antidepressant CT of the brain is negative Chest x-ray showed left lower lobe infiltrate and small effusion suspicious for pneumonia. EKG showing normal sinus rhythm at [address]-T changes. Troponin is elevated mildly Echocardiogram performed 07/2021: Ejection fraction 55-60%. LVH Review of Systems ROS unobtainable: due to mental status Past Medical History Past Medical History: Asthma, COPD, Diabetes Mellitus, GERD/Reflux, Hypertension, Skin Disorder Additional Past Medical History / Comment(s): hx spina bifida, spinal stenosis, pancreatitis. scrotal wound (to start on antibiotics 10/31/15), migraines, uses wheelchair-can ambulate but does fall at times. Tardive Dyskinesia History of Any Multi-Drug Resistant Organisms: None Reported Past Surgical History: Back Surgery Additional Past Surgical History / Comment(s): back surgery- 3 rods, 4 screws Past Anesthesia/Blood Transfusion Reactions: No Reported Reaction Past Psychological History: ADD/ADHD, Anxiety, Bipolar Smoking Status: Current every day smoker Past Alcohol Use History: Abuse Past Drug Use History: None Reported - Past Family History Mother Family Medical History: Cancer Father Family Medical History: Cancer Medications and Allergies Home Medications Medication Instructions Recorded Confirmed Type Atorvastatin Calcium [Lipitor] 20 mg PO HS 12/31/20 01/01/22 History Empagliflozin [Jardiance] 25 mg PO DAILY 12/31/20 01/01/22 History metFORMIN HCL [Glucophage] 1,000 mg PO BID 12/31/20 01/01/22 History fluvoxaMINE [Luvox] 50 mg PO DAILY 07/17/21 01/01/22 History fluvoxaMINE [Luvox] 100 mg PO HS 07/17/21 01/01/22 History Budesonide-Formot 160-4.5 Mcg 2 puff INHALATION RT-BID each 08/03/21 01/01/22 Rx [Symbicort 160-4.5 Mcg Inhaler] Furosemide [Lasix] 40 mg PO DAILY tab 08/03/21 01/01/22 Rx Potassium Chloride ER [K-Dur 20] 20 meq PO DAILY 12/16/21 01/01/22 History QUEtiapine [SEROquel] 50 mg PO HS 12/16/21 01/01/22 History Valbenazine Tosylate [Ingrezza 1 cap PO DAILY 12/16/21 01/01/22 History 40/80 MG Initiation Pack] Albuterol Sulfate [Ventolin HFA] 2 puff INHALATION RT-QID PRN #1 12/20/21 01/01/22 Rx each Cholecalciferol [Vitamin D3 (125 125 mcg PO DAILY 12/28/21 01/01/22 History Mcg = 5000 Iu)] Ipratropium-Albuterol Nebulize 3 ml INHALATION RT-QID PRN 12/28/21 01/01/22 History [Duoneb 0.5 mg-3 mg/3 ml Soln] Omeprazole 20 mg PO DAILY 12/28/21 01/01/22 History Allergies Allergy/AdvReac Type Severity Reaction Status Date / Time metals Allergy Rash/Hives, Uncoded 12/31/21 06:54 swelling Physical Exam Vitals: Vital Signs Temp Pulse Resp BP Pulse Ox FiO2 01/01/22 14:57 50 01/01/22 13:34 80 20 85/51 98 01/01/22 13:12 50 01/01/22 12:55 80 16 124/80 99 01/01/22 12:34 100 01/01/22 12:30 100 01/01/22 12:21 98.2 F 87 16 131/78 97 Intake and Output 01/01/22 01/01/22 01/01/22 06:59 14:59 22:59 Intake Total 3.538 Output Total 900 Balance -896.462 Intake: Intake, IV Titration 3.538 Amount propofoL 1,000 mg In 3.538 Empty Bag 1 bag @ 15 MCG/ KG/MIN 8.165 mls/hr IV . [id number] VINCE Rx#:[id number] Output: Gastric Drainage 900 Other: Weight 90.718 kg -GENERAL: The patient is intubated and sedated HEENT: Pupils are round and equally reacting to light. EOMI. No scleral icterus. No conjunctival pallor. Normocephalic, atraumatic. No pharyngeal erythema. No thyromegaly. CARDIOVASCULAR: S1 and S2 present. No murmurs, rubs, or gallops. -PULMONARY: Chest is clear to auscultation, no wheezing or crackles. Decreased air entry bilaterally ABDOMEN: Soft, nontender, nondistended, normoactive bowel sounds. No palpable organomegaly. MUSCULOSKELETAL: No joint swelling or deformity. EXTREMITIES: No cyanosis, clubbing, or pedal edema. NEUROLOGICAL: Gross neurological examination did not reveal any focal deficits. SKIN: No rashes. no petechiae. Results CBC & Chem 7: 01/01/22 12:39 01/01/22 12:39 Labs: Abnormal Lab Results - Last 24 Hours (Table) 01/01/22 01/01/22 01/01/22 Range/Units 12:39 12:39 12:39 WBC 20.7 H (3.8-10.6) k/uL Neutrophils # 17.4 H (1.3-7.7) k/uL ABG pH (7.35-7.45) ABG pCO2 (35-45) mmHg ABG pO2 (83-108) mmHg ABG HCO3 (21-25) mmol/L ABG Total CO2 (19-24) mmol/L ABG O2 Saturation (94-97) % Chloride 89 L (98-107) mmol/L Carbon Dioxide 31 H (22-30) mmol/L Creatinine 0.54 L (0.66-1.25) mg/dL Glucose 120 H (74-99) mg/dL Alkaline Phosphatase 130 H (38-126) U/L Troponin I (0.000-0.034) ng/mL U Tricyclic Antidepress Detected H (NotDetected) Serum Alcohol 359 H* mg/dL 01/01/22 01/01/22 Range/Units 12:39 13:04 WBC (3.8-10.6) k/uL Neutrophils # (1.3-7.7) k/uL ABG pH 7.27 L (7.35-7.45) ABG pCO2 65 H (35-45) mmHg ABG pO2 356 H (83-108) mmHg ABG HCO3 30 H (21-25) mmol/L ABG Total CO2 32 H (19-24) mmol/L ABG O2 Saturation 100.0 H (94-97) % Chloride (98-107) mmol/L Carbon Dioxide (22-30) mmol/L Creatinine (0.66-1.25) mg/dL Glucose (74-99) mg/dL Alkaline Phosphatase (38-126) U/L Troponin I 0.069 H* (0.000-0.034) ng/mL U Tricyclic Antidepress (NotDetected) Serum Alcohol mg/dL Assessment and Plan Assessment: Acute hypoxemic Respiratory failure requiring mechanical ventilation Asthma/COPD with acute exacerbation Left lower lobe pneumonia Alcohol intoxication at risk of withdrawal elevated troponin, most likely secondary to type II HI which is the month supply ischemia. Diabetes mellitus Nicotine dependence History of GERD Hypertension History of spinal stenosis History of ADD/ADHD, Anxiety, Bipolar History of tardive dyskinesia Plan: Continue with ICU monitoring Pulmonary/critical care consult Continue with mechanical ventilation as per intensive care unit team Continue with IV Solu-Medrol Continue with Zosyn follow-up with cardiology consult Labs and medication were reviewed.. Continue same treatment. Continue with symptomatic treatment. Resume home medication. Monitor lytes and vitals. DVT and GI prophylaxis. Further recommendations as per clinical course of the patient DVT prophylaxis: Subcutaneous heparin GI Prophylaxis: Ppi Prognosis is guarded
[2022-01-02] MEDS: INSULIN ASPART (NovoLOG) 100 UNIT/ML VIAL SQ SCH ×4 (00:39→17:40)
[2022-01-02] MEDS: PIPERACILLIN-TAZOBACTAM 3.375 GM in SODIUM CHLORIDE 0.9% 100 ML IVPB SCH ×3 (00:55→16:46)
[2022-01-02] MEDS: methylPREDNISolone SOD SUCCI 125 MG/2 ML VIAL IV SCH ×4 (00:55→17:41)
[2022-01-02] MEDS ORDERED: ALBUTEROL NEBULIZED 2.5 MG/3 ML INHALATION PRN (02:45)
[2022-01-02 04:02] LABS: HCT 46.7 % (39.0-53.0); HGB 15.3 gm/dL (13.0-17.5); MCH 31.2 pg (25.0-35.0); MCHC 32.9 g/dL (31.0-37.0); MCV 94.9 fL (80.0-100.0); Mean Platelet Volume 7.3; Platelet Count 313 k/uL (150-450); RBC 4.92 m/uL (4.30-5.90); WBC 20.9 k/uL (3.8-10.6)
[2022-01-02 04:15] LABS: African American GFR (CKD) >90 (>60 ml/min/1.73 sqM); Anion Gap 13 mmol/L; Blood Urea Nitrogen 23 mg/dL (9-20); Calcium 8.3 mg/dL (8.4-10.2); Carbon Dioxide 28 mmol/L (22-30); Chloride 100 mmol/L (98-107); Glucose 107 mg/dL (74-99); Non-African American GFR(CKD) >90 (>60 ml/min/1.73 sqM); Potassium 4.2 mmol/L (3.5-5.1); Sodium 141 mmol/L (137-145)
[2022-01-02 06:13] LABS: Glucose,Whole Blood 120 mg/dL (70-110)
[2022-01-02] MEDS ORDERED: LORazepam 1 MG/0.5 ML VIAL IV STA (06:20)
[2022-01-02] MEDS ORDERED: LORazepam 1 MG/0.5 ML VIAL IV PRN ×2 (06:35)
[2022-01-02] MEDS: ENOXAPARIN 40 MG/0.4 ML SYRINGE SQ SCH (08:22)
[2022-01-02] MEDS: PANTOPRAZOLE 40 MG/10 ML VIAL IVP SCH ×2 (08:23→20:22)
[2022-01-02] MEDS: THIAMINE 100 MG in SODIUM CHLORIDE 0.9% 50 ML IVPB SCH (08:23)
[2022-01-02] MEDS: NICOTINE 21MG/24HR PATCH TRANSDERM SCH (08:29)
[2022-01-02] MEDS: SYMBICORT 160-4.5 MCG INHALER INHALATION SCH ×2 (08:48→20:17)
--- NOTE | 2022-01-02 08:56 | XR ---
EXAMINATION TYPE: XR chest 1V portable DATE OF EXAM: 01/02/2022 COMPARISON: 01/01/2022 HISTORY: Shortness of breath TECHNIQUE: Single frontal view of the chest is obtained. FINDINGS: ET and NG tube have been removed. There is motion artifact limiting exam with left basilar subsegmental consolidation greater on the left. No sizable pleural effusion or pneumothorax. IMPRESSION: A basilar infiltrate on the left stable. No sizable pleural effusion on today's exam.
--- NOTE | 2022-01-02 09:02 | P.PN ---
Subjective Progress Note Date: 01/02/22 46-year-old male patient who came into the emergency department unresponsive and his initial GCS score was only 3. Based on that, the patient was quickly intubated to protect his airway and he was placed on a mechanical ventilator. Post intubation, the chest x-ray showed left lower lobe pulmonary infiltrate and a small effusion and 80 tube wasn't adequate location about 3 cm above the willian. CAT scan of the brain was also done that showed no acute intracranial hemorrhage. No other acute abnormalities were noted. The bloodwork was done and the patient was found to have a white second of 20.7 with a hemoglobin of 16.4 and a platelet count of 348. Post intubation blood. Showed a pH of 7.27 w ith a pCO2 of 65 and a pO2 of 356 and the patient is currently on assist-control mode of mechanical ventilation at the rate of 20 and FiO2 has been dropped down to 50% with a PEEP of 5 and a tidal volume is at 500. His peak air pressures around 28. His current pulse ox is 96% on room air. He is hemodynamically stable. The sodium level is at 139 with a potassium level of 4.1 and a chloride is 89 with a serum bicarb of 31. Creatinine is at 0.5. His troponin was 0.069, LFTs were normal, urine drug screen was positive for anti-depressant tricyclic medication and the patient's serum alcohol level was 359. The patient has an extensive psychiatric history. He is also known to have a mild component of COPD. Is known to our practice. We saw him in consultation on 12/19/2021 for increased shortness of breath. He is known to have COPD with an FEV1 of 77% of predicted. Is also known to have bipolar disorder, diabetes mellitus, hypertension, ADHD, spina bifida and is a chronic smoker. He has had issues also with pancreatitis probably related to excessive alcohol drinking. He smokes every day. During his last admission, he was treated and he was discharged home on Symbicort as maintenance. His influenza screen has been negative. His Covid 19 testing during his last admission was negative. This was not done during this current admission. In terms of his mental health, the patient has been maintained on a combination of Seroquel 50 mg at bedtime,Ingreza 40/80 milligrams 1 tablet a day and fluvoxamine 100 mg at bedtime and 50 mg a morning. On today's evaluation of 01/02/2022, the patient is extubated. Overnight, the patient was having difficulties with agitation or restlessness and he was getting himself outside the bed. At that point, we increased his sedation and he was placed on a combination of propofol and fentanyl. Despite that, he was getting up and writing on a piece of paper and communicating with the nursing staff. At that point, I decided to stop the sedation and proceed with a spontaneous breathing trial and subsequently was extubated at around 3 AM in the morning. Currently, he is extubated on 6 L of oxygen by nasal cannula. Breathing is nonlabored. However, he feels that he is anxious and at times she is having tachypnea. He has a congested cough and is bringing up some thick purulent material. His chest x-ray shows some improvement in left lower lobe pulmonary infiltrate. No new onset consolidations. He remains on IV Zosyn. S putum sample will be sent accordingly. He is also on bronchodilators. He is on steroids also. No significant tremors. He has history of bipolar disorder. He is communicating well. He is a psychiatric medication was restarted. He was given Ativan a total of 0.5 mg at 6:40 AM this morning. At the same time, his going to have a swallow evaluation to assess his ability to swallow. The patient's blood work from today shows a white cell count of 20.9 with a hemoglobin of 15.3. Rest of the blood work is showing normal renal function, normal electrolytes, LFTs were normal yesterday. He states that he drank some corn whiskey yesterday. His last drink prior to that was about 6 months ago. Note that he did not reliable historian. Objective - Vital Signs Vital signs: Vital Signs Temp 99.5 F 01/02/22 04:00 Pulse 100 01/02/22 07:44 Resp 28 H 01/02/22 07:00 BP 168/97 01/02/22 04:00 Pulse Ox 92 L 01/02/22 07:31 FiO2 50 01/02/22 01:30 Intake & Output 01/01/22 01/02/22 01/02/22 18:59 06:59 18:59 Intake Total 2428.855 1968.079 Output Total 4800 935 Balance -2371.145 1033.079 Weight 90.718 kg 90.7 kg Intake: IV 2360 1480 Piperacillin-Tazobactam 3 100 .375 gm In Sodium Chloride 0.9% 100 ml @ 200 mls/hr IVPB ONCE STA Rx#:[id number] Sodium Chloride 0.9% 1, 260 1480 000 ml @ 150 mls/hr IV . Q6H40M [facility] Rx#:[id number] Sodium Chloride 0.9% 1, 2000 000 ml @ 999 mls/hr IV . Q1H1M ONE Rx#:[id number] Intake, IV Titration 68.855 398.079 Amount Norepinephrine 4 mg In 93.553 Sodium Chloride 0.9% 250 ml @ 0.03 MCG/KG/MIN 10. 369 mls/hr IV .Q24H [facility] Rx#:[id number] fentaNYL (PF). 1,000 mcg 49.064 In Sodium Chloride 0.9% 80 ml @ 0.5 MCG/KG/HR 4. 536 mls/hr IV .Q22H3M [facility] Rx#:[id number] propofoL 1,000 mg In 68.855 255.462 Empty Bag 1 bag @ 15 MCG/ KG/MIN 8.165 mls/hr IV . [id number] [facility] Rx#:[id number] Tube Feeding 60 Other 30 Output: Gastric Drainage 2600 Urine 2200 935 Other: Voiding Method Indwelling Catheter Indwelling Catheter - Exam GENERAL EXAM: Alert, pleasant 46-year-old male patient, extubated to 6 L O2 nasal cannula HEAD: Normocephalic. EYES: Normal reaction of pupils, equal size. NOSE: Clear with pink turbinates. THROAT: No erythema or exudates. NECK: No masses, no JVD. CHEST: No chest wall deformity. LUNGS: Equal air entry with bilateral end expiratory wheeze, diminished. CVS: S1 and S2 normal with no audible murmur, regular rhythm. ABDOMEN: No hepatosplenomegaly, normal bowel sounds, no guarding or rigidity. SPINE: No scoliosis or deformity SKIN: No rashes CENTRAL NERVOUS SYSTEM: No focal deficits, tone is normal in all 4 extremities. Awake and alert and communicating EXTREMITIES: There is no peripheral edema. No clubbing, no cyanosis. Peripheral pulses are intact. - Labs CBC & Chem 7: 01/02/22 03:42 01/02/22 03:42 Labs: Abnormal Lab Results - Last 24 Hours (Table) 01/01/22 01/01/22 01/01/22 Range/Units 12:39 12:39 12:39 WBC 20.7 H (3.8-10.6) k/uL Neutrophils # 17.4 H (1.3-7.7) k/uL ABG pH (7.35-7.45) ABG pCO2 (35-45) mmHg ABG pO2 (83-108) mmHg ABG HCO3 (21-25) mmol/L ABG Total CO2 (19-24) mmol/L ABG O2 Saturation (94-97) % Chloride 89 L (98-107) mmol/L Carbon Dioxide 31 H (22-30) mmol/L BUN (9-20) mg/dL Creatinine 0.54 L (0.66-1.25) mg/dL Glucose 120 H (74-99) mg/dL POC Glucose (mg/dL) (70-110) mg/dL Plasma Lactic Acid Ashwin (0.7-2.0) mmol/L Calcium (8.4-10.2) mg/dL Alkaline Phosphatase 130 H (38-126) U/L Troponin I (0.000-0.034) ng/mL U Tricyclic Antidepress Detected H (NotDetected) Serum Alcohol 359 H* mg/dL 01/01/22 01/01/22 01/01/22 Range/Units 12:39 13:04 16:08 WBC (3.8-10.6) k/uL Neutrophils # (1.3-7.7) k/uL ABG pH 7.27 L (7.35-7.45) ABG pCO2 65 H (35-45) mmHg ABG pO2 356 H (83-108) mmHg ABG HCO3 30 H (21-25) mmol/L ABG Total CO2 32 H (19-24) mmol/L ABG O2 Saturation 100.0 H (94-97) % Chloride (98-107) mmol/L Carbon Dioxide (22-30) mmol/L BUN (9-20) mg/dL Creatinine (0.66-1.25) mg/dL Glucose (74-99) mg/dL POC Glucose (mg/dL) 65 L (70-110) mg/dL Plasma Lactic Acid Sahwin (0.7-2.0) mmol/L Calcium (8.4-10.2) mg/dL Alkaline Phosphatase (38-126) U/L Troponin I 0.069 H* (0.000-0.034) ng/mL U Tricyclic Antidepress (NotDetected) Serum Alcohol mg/dL 01/01/22 01/01/22 01/02/22 Range/Units 18:21 21:11 03:42 WBC 20.9 H (3.8-10.6) k/uL Neutrophils # (1.3-7.7) k/uL ABG pH (7.35-7.45) ABG pCO2 (35-45) mmHg ABG pO2 (83-108) mmHg ABG HCO3 (21-25) mmol/L ABG Total CO2 (19-24) mmol/L ABG O2 Saturation (94-97) % Chloride (98-107) mmol/L Carbon Dioxide (22-30) mmol/L BUN (9-20) mg/dL Creatinine (0.66-1.25) mg/dL Glucose (74-99) mg/dL POC Glucose (mg/dL) (70-110) mg/dL Plasma Lactic Acid Ashwin 3.8 H* 2.7 H* (0.7-2.0) mmol/L Calcium (8.4-10.2) mg/dL Alkaline Phosphatase (38-126) U/L Troponin I (0.000-0.034) ng/mL U Tricyclic Antidepress (NotDetected) Serum Alcohol mg/dL 01/02/22 01/02/22 Range/Units 03:42 06:12 WBC (3.8-10.6) k/uL Neutrophils # (1.3-7.7) k/uL ABG pH (7.35-7.45) ABG pCO2 (35-45) mmHg ABG pO2 (83-108) mmHg ABG HCO3 (21-25) mmol/L ABG Total CO2 (19-24) mmol/L ABG O2 Saturation (94-97) % Chloride (98-107) mmol/L Carbon Dioxide (22-30) mmol/L BUN 23 H (9-20) mg/dL Creatinine 0.51 L (0.66-1.25) mg/dL Glucose 107 H (74-99) mg/dL POC Glucose (mg/dL) 120 H (70-110) mg/dL Plasma Lactic Acid Ashwin (0.7-2.0) mmol/L Calcium 8.3 L (8.4-10.2) mg/dL Alkaline Phosphatase (38-126) U/L Troponin I (0.000-0.034) ng/mL U Tricyclic Antidepress (NotDetected) Serum Alcohol mg/dL Microbiology - Last 24 Hours (Table) 01/01/22 16:00 Sputum Culture - Preliminary Sputum Assessment and Plan Plan: Acute unresponsiveness, could be related to acute alcohol intoxication. Serum alcohol level was above 350. Hemodynamically the patient was stable. The patient had a CAT scan of the brain that was negative. Urine drug screen was positive for tricyclic antidepressants otherwise negative. He was given Narcan and he had no response to that. The patient is currently off sedation and the patient is already extubated. No focal neurological deficits. Awaiting a psychiatric evaluation Acute hypoxic/hypercapnic respiratory failure, currently extubated and the patient was extubated on 01/02/2022 at around 3:40 AM and currently on 6 L of O2 nasal cannula Left lower lobe pulmonary infiltrate/pneumonia, consider aspiration COPD with an FEV1 of 77% predicted Diabetes mellitus Hypertension History of chronic bipolar disorder, chronic anxiety History of alcohol abuse Spina bifida Chronic smoker Previous history of pancreatitis Migraines Mobility difficulties as the patient has issues with falls History of back surgery Plan Wean down FiO2 as tolerated Check sputum Gram stain and culture DuoNeb nebulized treatments [id number] IV Solu-Medrol 60 mg every 6 hours IV Zosyn covering the patient for aspiration Lovenox 40 mg subcu portably prophylaxis Insulin sliding scale coverage Swallow evaluation IV Protonix Nicotine patches Social work consult Psychiatric consult Psychiatric medications were restarted and the patient is also on Ativan for anxiety
[2022-01-02] MEDS: metFORMIN 500 MG TAB PO SCH ×2 (10:00→20:22)
[2022-01-02] MEDS: FUROSEMIDE 40 MG TAB PO SCH (10:00)
[2022-01-02 10:03] LABS: Glucose,Whole Blood 153 mg/dL (70-110)
[2022-01-02] MEDS: LORazepam 1 MG/0.5 ML VIAL IV PRN (10:18)
[2022-01-02 12:06] LABS: Glucose,Whole Blood 238 mg/dL (70-110)
[2022-01-02] MEDS ORDERED: QUEtiapine 50 MG TAB PO SCH ×2 (13:45→21:00)
--- NOTE | 2022-01-02 13:50 | P.CN ---
Psychiatric Consult - . Consult date: 01/02/22 Consult:: 01/02/22 13:41 IDENTIFYING DATA: This patient is a 46-year-old male, who currently lives with his mother in a house, single REASON FOR REFERRAL: Psychiatry was consulted for psychiatric evaluation HISTORY OF PRESENT ILLNESS: The patient presented to the hospital after he was apparently found unresponsive. Patient was brought in via EMS. Patient has history of COPD and bipolar disorder and also substance abuse including alcohol use disorder/abuse. Patient apparently was given Narcan however did not have any effect. Patient apparently was drinking fairly heavily before admission. Patient does have a history of Klonopin abuse. Patient's blood alcohol level was 360. He had an elevated troponin at 0.069. Urine drug screen was positive for TCAs. He had a chest x-ray that showed left lower lobe pneumonia and white blood cell count that was elevated along with elevated neutrophil count. Patient has been seen several times by conventional underwriter in the past for psychiatric consultation and admission to the psychiatric unit. Patient was seen sitting with his sister and agreeable to speak a conventional underwriter. Patient does appear to be anxious and claims that he is feeling "very anxious". He states that he drank alcohol impulsively at home a significant amount of liquor a 1 time because "I needed something to knock me out because the anxiety got so bad". He states that he does go to [facility] for follow-up however they stopped prescribing him Klonopin. He was fairly focused on his medications and getting better. He appears to have poor insight and judgment and was somewhat impulsive. He did appear to have mild tremors in his hands and did appear to be restless in the bed. Denying any depression at this time. Patient does state that he feels short of breath at times due to his COPD. Claims that his sleep has been poor recently. appetite is fair. At this time patient denies any suicidal or homical ideations, intent or plan. Patient denies any auditory, visual hallucinations and denies any paranoia or delusions. Patients admits to using cigarettes daily and alcohol as noted above. PAST PSYCHIATRIC HISTORY: Patient has a a history of bipolar depression, anxiety. Patient is now on Seroquel and also on fluvoxamine. Klonopin was recently discontinued. Patient was last psychiatrically hospitalized in July 2021. Patient currently follows up with Dr. Samuel at [facility] as an outpatient. Patient denies any history of suicide attempts in the past. PAST MEDICAL HISTORY: As per medicine H&P. ALLERGIES: as per EMR. CHEMICAL DEPENDENCY HISTORY: as per HPI. FAMILY PSYCHIATRIC/SUBSTANCE USE HISTORY: denies SOCIAL HISTORY: Patient was born and raised in [place]. [facility] has been in [facility] in the past for [facility]. Patient apparently completed high school. He is single, has no kids and currently lives with his mother in a house. MENTAL STATUS EXAM: General Appearance: Patient appears to be overweight, disheveled appearance, several tattoos, older than stated age is alert, appears to be anxious however is attempting to cooperate. Patient appears to have poor hygiene and grooming wearing hospital gown with fair and intense eye contact. Behavior: Patient is lying in bed however appears to be restless. Speech: Patient's speech is fluent and nonpressured. Hesitant Mood/Affect: Patient reports their mood is "very anxious", affect is congruent and appears anxious Suicidality/Homicidality: Patient denies having any suicidal or homicidal ideation intent or plan. Perceptions: Patient denies any visual hallucinations and denies any auditory hallucinations Though content/process: There is no evidence of any delusional thought content and thought process is linear and goal-directed. Malone, focused on medications. Memory and concentration: AOX3, grossly intact for the purposes of this session. Can spell "WORLD" backwards Judgment and insight: Limited IMPRESSIONS: Bipolar disorder, depressed Anxiety disorder unspecified History of alcohol abuse COPD exacerbation Nicotine dependence PLAN: -At this time patient DOES NOT meet criteria for inpatient psychiatric admission. -Delirium precautions recommended with patient including - avoiding use of narcotics and SOLDER TECHNICIAN sedatives, limit anticholinergic medications when possible, frequent re-orientation, minimize use of restraints, open window shades during the day and close them at night -Would recommend the following medication changes/additions: increase Seroquel 50 mg daily + 100 mg qhs for anxiety/ mood stabilization/sleep. Vistaril when necessary for anxiety. contiinue with home dose of fluvoxamine. added librium 20 mg tid scheduled for etoh withdrawal. -ciwa protcol with prn ativan -Patiently currently follows up with Dr. Hauser at [facility]. -Communicated plan to patient's nurse -Will continue to follow along tomorrow. -Please contact with any questions.
[2022-01-02] MEDS: hydrOXYzine pamoate 25 MG CAP PO PRN (14:40)
[2022-01-02] MEDS: NOREPINEPHRINE 4 MG in SODIUM CHLORIDE 0.9% 250 ML IV SCH (16:42)
[2022-01-02 17:39] LABS: Glucose,Whole Blood 185 mg/dL (70-110)
[2022-01-02] MEDS: [UNRECOGNIZED DRUG - OTHER] PO SCH (19:31)
[2022-01-02] MEDS: QUEtiapine 100 MG TAB PO SCH (20:22)
[2022-01-02] MEDS: ATORVASTATIN 20 MG TAB PO SCH (20:22)
[2022-01-02 23:53] LABS: Glucose,Whole Blood 155 mg/dL (70-110)
[2022-01-03] MEDS: INSULIN ASPART (NovoLOG) 100 UNIT/ML VIAL SQ SCH ×5 (00:09→20:38)
[2022-01-03] MEDS: PIPERACILLIN-TAZOBACTAM 3.375 GM in SODIUM CHLORIDE 0.9% 100 ML IVPB SCH ×3 (00:10→16:13)
[2022-01-03] MEDS: methylPREDNISolone SOD SUCCI 125 MG/2 ML VIAL IV SCH ×3 (00:10→11:15)
--- NOTE | 2022-01-03 04:49 | P.PN ---
Subjective This is a pleasant 46 years old male with past medical history of Asthma, COPD, Diabetes Mellitus, GERD/Reflux, Hypertension, hx spina bifida, spinal stenosis, pancreatitis. , uses wheelchair-can ambulate but does fall at times. ADD/ADHD, Anxiety, Bipolar, Tardive Dyskinesia, back surgery, Current every day smoker Patient presents with altered mental status and unresponsiveness Altered mental status, mostly secondary to metabolic/toxic encephalopathy patient is afebrile and blood pressure is stable. Labs showed leukocytosis of 20.7. PH 7.2, pCO2-65. Lactic acid at 2.7. Alcohol level is elevated at 359 Urine drug screen is positive for tricyclic antidepressant CT of the brain is negative Chest x-ray showed left lower lobe infiltrate and small effusion suspicious for pneumonia. EKG showing normal sinus rhythm at [address]-T changes. Troponin is elevated mildly Echocardiogram performed 07/2021: Ejection fraction 55-60%. [facility] 01/02/2022 Patient got extubated, he is awake and alert but looks like agitated although he looks pleasant. He has bad lower teeth dentures and absent all 4 teeth, we'll ask for swallow evaluation He is currently on Ativan when necessary and psych medication and psychiatric we'll see the patient Also he is on Solu-Medrol and Zosyn Leukocytosis of 20 and his breathing more comfortable with mild tachypnea. His oxygen requirement to 6 L/m Objective - Vital Signs Vital signs: Vital Signs Temp 98.0 F 01/02/22 08:00 Pulse 100 01/02/22 11:00 Resp 23 01/02/22 11:00 BP 152/119 01/02/22 11:00 Pulse Ox 97 01/02/22 11:00 FiO2 50 01/02/22 01:30 Intake & Output 01/01/22 01/02/22 01/02/22 18:59 06:59 18:59 Intake Total 2428.855 1968.079 10 Output Total 4800 935 685 Balance -2371.145 1033.079 -675 Weight 90.718 kg 90.7 kg Intake: IV 2360 1480 Piperacillin-Tazobactam 3 100 .375 gm In Sodium Chloride 0.9% 100 ml @ 200 mls/hr IVPB ONCE STA Rx#:[id number] Sodium Chloride 0.9% 1, 260 1480 000 ml @ 150 mls/hr IV . Q6H40M [facility] Rx#:[id number] Sodium Chloride 0.9% 1, 2000 000 ml @ 999 mls/hr IV . Q1H1M [facility] Rx#:[id number] Intake, IV Titration 68.855 398.079 10 Amount Norepinephrine 4 mg In 93.553 Sodium Chloride 0.9% 250 ml @ 0.03 MCG/KG/MIN 10. 369 mls/hr IV .Q24H [facility] Rx#:[id number] Sodium Chloride 0.9% 1, 10 000 ml @ 999 mls/hr IV . Q1H1M [facility] Rx#:[id number] fentaNYL (PF). 1,000 mcg 49.064 In Sodium Chloride 0.9% 80 ml @ 0.5 MCG/KG/HR 4. 536 mls/hr IV .Q22H3M [facility] Rx#:[id number] propofoL 1,000 mg In 68.855 255.462 Empty Bag 1 bag @ 15 MCG/ KG/MIN 8.165 mls/hr IV . [id number] [facility] Rx#:[id number] Tube Feeding 60 Other 30 Output: Gastric Drainage 2600 Urine 2200 935 685 Other: Voiding Method Indwelling Catheter Indwelling Catheter - Exam -GENERAL: The patient is alert and oriented , he is agitated has back dentures, not in any acute distress. Well developed, well nourished. HEENT: Pupils are round and equally reacting to light. EOMI. No scleral icterus. No conjunctival pallor. Normocephalic, atraumatic. No pharyngeal erythema. No thyromegaly. CARDIOVASCULAR: S1 and S2 present. No murmurs, rubs, or gallops. PULMONARY: Chest is clear to auscultation, no wheezing or crackles. ABDOMEN: Soft, nontender, nondistended, normoactive bowel sounds. No palpable organomegaly. MUSCULOSKELETAL: No joint swelling or deformity. EXTREMITIES: No cyanosis, clubbing, or pedal edema. NEUROLOGICAL: Gross neurological examination did not reveal any focal deficits. SKIN: No rashes. no petechiae. - Labs CBC & Chem 7: 01/02/22 03:42 01/02/22 03:42 Labs: Abnormal Lab Results - Last 24 Hours (Table) 01/01/22 01/01/22 01/01/22 Range/Units 12:39 12:39 12:39 WBC 20.7 H (3.8-10.6) k/uL Neutrophils # 17.4 H (1.3-7.7) k/uL ABG pH (7.35-7.45) ABG pCO2 (35-45) mmHg ABG pO2 (83-108) mmHg ABG HCO3 (21-25) mmol/L ABG Total CO2 (19-24) mmol/L ABG O2 Saturation (94-97) % Chloride 89 L (98-107) mmol/L Carbon Dioxide 31 H (22-30) mmol/L BUN (9-20) mg/dL Creatinine 0.54 L (0.66-1.25) mg/dL Glucose 120 H (74-99) mg/dL POC Glucose (mg/dL) (70-110) mg/dL Plasma Lactic Acid Ashwin (0.7-2.0) mmol/L Calcium (8.4-10.2) mg/dL Alkaline Phosphatase 130 H (38-126) U/L Troponin I (0.000-0.034) ng/mL U Tricyclic Antidepress Detected H (NotDetected) Serum Alcohol 359 H* mg/dL 01/01/22 01/01/22 01/01/22 Range/Units 12:39 13:04 16:08 WBC (3.8-10.6) k/uL Neutrophils # (1.3-7.7) k/uL ABG pH 7.27 L (7.35-7.45) ABG pCO2 65 H (35-45) mmHg ABG pO2 356 H (83-108) mmHg ABG HCO3 30 H (21-25) mmol/L ABG Total CO2 32 H (19-24) mmol/L ABG O2 Saturation 100.0 H (94-97) % Chloride (98-107) mmol/L Carbon Dioxide (22-30) mmol/L BUN (9-20) mg/dL Creatinine (0.66-1.25) mg/dL Glucose (74-99) mg/dL POC Glucose (mg/dL) 65 L (70-110) mg/dL Plasma Lactic Acid Ashwin (0.7-2.0) mmol/L Calcium (8.4-10.2) mg/dL Alkaline Phosphatase (38-126) U/L Troponin I 0.069 H* (0.000-0.034) ng/mL U Tricyclic Antidepress (NotDetected) Serum Alcohol mg/dL 01/01/22 01/01/22 01/02/22 Range/Units 18:21 21:11 03:42 WBC 20.9 H (3.8-10.6) k/uL Neutrophils # (1.3-7.7) k/uL ABG pH (7.35-7.45) ABG pCO2 (35-45) mmHg ABG pO2 (83-108) mmHg ABG HCO3 (21-25) mmol/L ABG Total CO2 (19-24) mmol/L ABG O2 Saturation (94-97) % Chloride (98-107) mmol/L Carbon Dioxide (22-30) mmol/L BUN (9-20) mg/dL Creatinine (0.66-1.25) mg/dL Glucose (74-99) mg/dL POC Glucose (mg/dL) (70-110) mg/dL Plasma Lactic Acid Ashwin 3.8 H* 2.7 H* (0.7-2.0) mmol/L Calcium (8.4-10.2) mg/dL Alkaline Phosphatase (38-126) U/L Troponin I (0.000-0.034) ng/mL U Tricyclic Antidepress (NotDetected) Serum Alcohol mg/dL 01/02/22 01/02/22 01/02/22 Range/Units 03:42 06:12 10:02 WBC (3.8-10.6) k/uL Neutrophils # (1.3-7.7) k/uL ABG pH (7.35-7.45) ABG pCO2 (35-45) mmHg ABG pO2 (83-108) mmHg ABG HCO3 (21-25) mmol/L ABG Total CO2 (19-24) mmol/L ABG O2 Saturation (94-97) % Chloride (98-107) mmol/L Carbon Dioxide (22-30) mmol/L BUN 23 H (9-20) mg/dL Creatinine 0.51 L (0.66-1.25) mg/dL Glucose 107 H (74-99) mg/dL POC Glucose (mg/dL) 120 H 153 H (70-110) mg/dL Plasma Lactic Acid Ashwin (0.7-2.0) mmol/L Calcium 8.3 L (8.4-10.2) mg/dL Alkaline Phosphatase (38-126) U/L Troponin I (0.000-0.034) ng/mL U Tricyclic Antidepress (NotDetected) Serum Alcohol mg/dL Microbiology - Last 24 Hours (Table) 01/01/22 16:00 Gram Stain - Preliminary Sputum Sputum Culture - Preliminary Assessment and Plan Assessment: Acute hypoxemic Respiratory failure requiring mechanical ventilation Asthma/COPD with acute exacerbation Left lower lobe pneumonia Alcohol intoxication at risk of withdrawal elevated troponin, most likely secondary to type II NM which is the month supply ischemia. Diabetes mellitus Nicotine dependence History of GERD Hypertension History of spinal stenosis History of ADD/ADHD, Anxiety, Bipolar History of tardive dyskinesia Plan: Continue with ICU monitoring Pulmonary/critical care consult Continue with oxygen as needed Continue with IV Solu-Medrol Continue with Zosyn follow-up with cardiology consult Psychiatric consult and swallow evaluation Labs and medication were reviewed.. Continue same treatment. Continue with symptomatic treatment. Resume home medication. Monitor lytes and vitals. DVT and GI prophylaxis. Further recommendations as per clinical course of the patient DVT prophylaxis: Subcutaneous heparin GI Prophylaxis: Ppi Prognosis is guarded
[2022-01-03 05:48] LABS: Glucose,Whole Blood 172 mg/dL (70-110)
[2022-01-03 07:08] LABS: HCT 43.3 % (39.0-53.0); MCHC 32.4 g/dL (31.0-37.0); MCV 95.7 fL (80.0-100.0); Mean Platelet Volume 7.1; Platelet Count 282 k/uL (150-450); RBC 4.52 m/uL (4.30-5.90); RDW 13.5 % (11.5-15.5); WBC 24.1 k/uL (3.8-10.6)
[2022-01-03] MEDS: IPRATROPIUM-ALBUTEROL 3 ML NEB INHALATION SCH ×4 (07:09→20:27)
[2022-01-03] MEDS: SYMBICORT 160-4.5 MCG INHALER INHALATION SCH ×2 (07:20→20:27)
[2022-01-03 07:50] LABS: African American GFR (CKD) >90 (>60 ml/min/1.73 sqM); Anion Gap 6 mmol/L; Blood Urea Nitrogen 15 mg/dL (9-20); Calcium 8.4 mg/dL (8.4-10.2); Carbon Dioxide 38 mmol/L (22-30); Chloride 96 mmol/L (98-107); Glucose 182 mg/dL (74-99); Non-African American GFR(CKD) >90 (>60 ml/min/1.73 sqM); Potassium 4.1 mmol/L (3.5-5.1); Sodium 140 mmol/L (137-145)
[2022-01-03] MEDS: [UNRECOGNIZED DRUG - OTHER] PO SCH (08:24)
[2022-01-03] MEDS: THIAMINE 100 MG in SODIUM CHLORIDE 0.9% 50 ML IVPB SCH (08:33)
[2022-01-03] MEDS: PANTOPRAZOLE 40 MG/10 ML VIAL IVP SCH ×2 (08:33→20:38)
[2022-01-03] MEDS: FUROSEMIDE 40 MG TAB PO SCH (08:33)
[2022-01-03] MEDS: metFORMIN 500 MG TAB PO SCH ×2 (08:33→20:38)
[2022-01-03] MEDS: QUEtiapine 50 MG TAB PO SCH (08:33)
[2022-01-03] MEDS: ENOXAPARIN 40 MG/0.4 ML SYRINGE SQ SCH (08:34)
[2022-01-03] MEDS: NICOTINE 21MG/24HR PATCH TRANSDERM SCH (08:34)
--- NOTE | 2022-01-03 08:42 | XR ---
EXAMINATION TYPE: XR chest 1V portable DATE OF EXAM: 01/03/2022 COMPARISON: 01/02/2022 HISTORY: Abnormal x-ray TECHNIQUE: Single frontal view of the chest is obtained. FINDINGS: Improving basilar consolidation relative to prior exam. No sizable pleural effusion or pne umothorax. Limited inspiration. Heart size normal. No failure. Osseous structures stable. IMPRESSION: Improving left basilar infiltrate.
--- NOTE | 2022-01-03 10:43 | P.PN ---
Subjective Progress Note Date: 01/03/22 Principal diagnosis: Mental status changes. 46-year-old male patient who came into the emergency department unresponsive and his initial GCS score was only 3. Based on that, the patient was quickly intubated to protect his airway and he was placed on a mechanical ventilator. P ost intubation, the chest x-ray showed left lower lobe pulmonary infiltrate and a small effusion and 80 tube wasn't adequate location about 3 cm above the willian. CAT scan of the brain was also done that showed no acute intracranial hemorrhage. No other acute abnormalities were noted. The bloodwork was done and the patient was found to have a white second of 20.7 with a hemoglobin of 16.4 and a platelet count of 348. Post intubation blood. Showed a pH of 7.27 with a pCO2 of 65 and a pO2 of 356 and the patient is currently on assist- control mode of mechanical ventilation at the rate of 20 and FiO2 has been dropped down to 50% with a PEEP of 5 and a tidal volume is at 500. His peak air pressures around 28. His current pulse ox is 96% on room air. He is hemodynamically stable. The sodium level is at 139 with a potassium level of 4.1 and a chloride is 89 with a serum bicarb of 31. Creatinine is at 0.5. His troponin was 0.069, LFTs were normal, urine drug screen was positive for anti- depressant tricyclic medication and the patient's serum alcohol level was 359. The patient has an extensive psychiatric history. He is also known to have a mild component of COPD. Is known to our practice. We saw him in consultation on 12/19/2021 for increased shortness of breath. He is known to have COPD with an FEV1 of 77% of predicted. Is also known to have bipolar disorder, diabetes mellitus, hypertension, ADHD, spina bifida and is a chronic smoker. He has had issues also with pancreatitis probably related to excessive alcohol drinking. He smokes every day. During his last admission, he was treated and he was discharged home on Symbicort as maintenance. His influenza screen has been negative. His Covid 19 testing during his last admission was negative. This was not done during this current admission. In terms of his mental health, the patient has been maintained on a combination of Seroquel 50 mg at bedtime,Ingreza 40/80 milligrams 1 tablet a day and fluvoxamine 100 mg at bedtime and 50 mg a morning. On today's evaluation of 01/02/2022, the patient is extubated. Overnight, the patient was having difficulties with agitation or restlessness and he was getting himself outside the bed. At that point, we increased his sedation and he was placed on a combination of propofol and fentanyl. Despite that, he was getting up and writing on a piece of paper and communicating with the nursing staff. At that point, I decided to stop the sedation and proceed with a spontaneous breathing trial and subsequently was extubated at around 3 AM in the morning. Currently, he is extubated on 6 L of oxygen by nasal cannula. Breathing is nonlabored. However, he feels that he is anxious and at times she is having tachypnea. He has a congested cough and is bringing up some thick purulent material. His chest x-ray shows some improvement in left lower lobe pulmonary infiltrate. No new onset consolidations. He remains on IV Zosyn. Sputum sample will be sent accordingly. He is also on bronchodilators. He is on steroids also. No significant tremors. He has history of bipolar disorder. He is communicating well. He is a psychiatric medication was restarted. He was given Ativan a total of 0.5 mg at 6:40 AM this morning. At the same time, his going to have a swallow evaluation to assess his ability to swallow. The patient's blood work from today shows a white cell count of 20.9 with a hemoglobin of 15.3. Rest of the blood work is showing normal renal function, normal electrolytes, LFTs were normal yesterday. He states that he drank some corn whiskey yesterday. His last drink prior to that was about 6 months ago. Note that he did not reliable historian. Progress note dated 01/03/2022. This is a 46-year-old male who was admitted on January 01, for bipolar disorder, schizoaffective disorder, alcohol abuse, and overdose. The patient was intubated on January 01, and extubated the next day on January 02. He is currently on 4 L. He is seen today in room 256. He remains on Zosyn for possible aspiration pneumonia. He's not receiving any IV fluids. The patient is an overflow patient can be transferred to the general medical floor, without telemetry. His chest x-ray showed a left basilar infiltrate. White count 24.1, hemoglobin 13, hematocrit 43.3, and platelet count 282,000. Sodium 140, potassium 4.1, chlorides 96, CO2 38, BUN 15, creatinine 0.48. The patient's chest x-ray shows improving left lower lobe infiltrate. Objective - Vital Signs Vital signs: Vital Signs Temp 99.7 F H 01/03/22 00:00 Pulse 93 01/03/22 09:00 Resp 21 01/03/22 09:00 BP 148/97 01/03/22 09:00 Pulse Ox 98 01/03/22 09:00 FiO2 50 01/02/22 01:30 Intake & Output 01/02/22 01/03/22 01/03/22 18:59 06:59 18:59 Intake Total 40 100 1500 Output Total 3120 2305 350 Balance -3080 -2205 1150 Weight 81.6 kg Intake: IV 100 Piperacillin-Tazobactam 3 100 .375 gm In Sodium Chloride 0.9% 100 ml @ 200 mls/hr IVPB ONCE STA Rx#:[id number] Intake, IV Titration 40 Amount Sodium Chloride 0.9% 1, 40 000 ml @ 999 mls/hr IV . Q1H1M ONE Rx#:[id number] Oral 1500 Output: Urine 3120 2305 350 Other: Voiding Method Indwelling Catheter Indwelling Catheter Bedside Commode Urinal # Voids 0 - Exam No acute distress, oriented 3. Currently on 4 L of oxygen. HEENT examination is grossly unremarkable. Neck supple. Full range of motion. No adenopathy thyromegaly or neck vein distention. Cardiovascular examination reveals regular rhythm rate. S1-S2 normal. No S3 or S4. No discernible murmur noted. Heart rate 93 bpm. Lungs reveal mild scattered rhonchi. No wheezes or crackles. Breath sounds equal bilaterally. Saturations are 98%. Abdomen soft bowel sounds are heard. No masses or tenderness. Extremities are intact. No cyanosis clubbing or edema. Skin is without rash or lesion. Neurologic examination is brief but nonfocal. - Labs CBC & Chem 7: 01/03/22 06:26 01/03/22 06:26 Labs: Abnormal Lab Results - Last 24 Hours (Table) 01/02/22 01/02/22 01/02/22 Range/Units 12:05 17:36 23:51 WBC (3.8-10.6) k/uL Chloride (98-107) mmol/L Carbon Dioxide (22-30) mmol/L Creatinine (0.66-1.25) mg/dL Glucose (74-99) mg/dL POC Glucose (mg/dL) 238 H 185 H 155 H (70-110) mg/dL 01/03/22 01/03/22 01/03/22 Range/Units 05:47 06:26 06:26 WBC 24.1 H (3.8-10.6) k/uL Chloride 96 L (98-107) mmol/L Carbon Dioxide 38 H (22-30) mmol/L Creatinine 0.48 L (0.66-1.25) mg/dL Glucose 182 H (74-99) mg/dL POC Glucose (mg/dL) 172 H (70-110) mg/dL Microbiology - Last 24 Hours (Table) 01/01/22 15:15 Blood Culture - Preliminary Blood No Growth after 24 hours 01/01/22 15:30 Blood Culture - Preliminary Blood No Growth after 24 hours 01/01/22 16:00 Gram Stain - Preliminary Sputum Sputum Culture - Preliminary Assessment and Plan Assessment: Acute unresponsiveness, and inability to protect his airway, status post intubation on January 01, and extubation successfully on 01/02/2022. Acute hypoxemic and hypercapnic respiratory failure, resolved. Left lower lobe pneumonia, improved, likely secondary to aspiration. Mild/moderate COPD with an FEV1 that's 77% of predicted. Diabetes mellitus. Hypertension. History of chronic bipolar disorder and chronic anxiety. History of chronic alcohol abuse. History of spina bifida. History of ongoing tobacco use with nicotine addiction. Prior history of pancreatitis. History of migraine cephalgia. History of back surgery. Plan: Plan dated 01/03/2022 The patient could be transferred out of the intensive care unit. The patient continues on Zosyn. The patient's chest x-rays improved. Labs, x-rays, medications are reviewed. The patient will have a psychiatric evaluation if not or ready done so. We will continue to follow make recommendations along the way. Again, the patient could be transferred out of the intensive care unit, the general medical floor, without telemetry. Time with Patient: Less than 30
[2022-01-03 11:11] LABS: Glucose,Whole Blood 202 mg/dL (70-110)
--- NOTE | 2022-01-03 14:01 | P.PN ---
Progress Note - Text Progress Note Date: 01/03/22 Interval History: Patient was seen today for psychiatric follow-up. Patient was sitting talking with his sister at the side of the bed. Patient continues to have tics including vocal and motor tics during the examination. Patient appears to be mildly paranoid today and was somewhat argumentative with medical writer. He explained that his anxiety only mildly improved since yesterday and continues to ask for klonopin. He was alert and oriented x 3. he states that he slept better last night, has a fair appetite. he claims that his mood is "up and down". He is difficult to interupt and direct and appears to be somewhat impulsive and intrusive today. At this time patient denies any suicidal or homical ideations, intent or plan. Patient denies any auditory, visual hallucinations and denies any paranoia or delusions. Patient denies any side effects from the medications and has been compliant with meds. Mental Status Exam: General Appearance: Patient appears to be overweight, disheveled appearance, several tattoos, older than stated age is alert, appears to be anxious however is attempting to cooperate. Patient appears to have poor hygiene and grooming wearing hospital gown with fair and intense eye contact. vocal and motor tics present. Behavior: Patient is lying in bed however appears to be restlessat times, improving midlly Speech: Patient's speech is fluent and nonpressured. hesitant. demanding. Mood/Affect: Patient reports their mood is "anxious", affect is congruent and appears anxious Suicidality/Homicidality: Patient denies having any suicidal or homicidal ideation intent or plan. Perceptions: Patient denies any visual hallucinations and denies any auditory hallucinations Though content/process: There is no evidence of any delusional thought content and thought process is linear and goal-directed. [place], focused on medications. Memory and concentration: AOX3, grossly intact for the purposes of this session Judgment and insight: chronically limited IMPRESSIONS: Bipolar disorder, depressed Anxiety disorder unspecified unspecified tic disorder r/o tardive dyskinesia History of alcohol abuse COPD exacerbation Nicotine dependence PLAN: -At this time patient DOES NOT meet criteria for inpatient psychiatric admission. -Delirium precautions recommended with patient including - avoiding use of narcotics and PART TIME sedatives, limit anticholinergic medications when possible, frequent re-orientation, minimize use of restraints, open window shades during the day and close them at night -Would recommend the following medication changes/additions: continue Seroquel 50 mg daily + 100 mg qhs for anxiety/ mood stabilization/sleep. Vistaril when necessary for anxiety. contiinue with home dose of fluvoxamine, will consider increasing tomorrow if needed. decrease librium 10 mg 4 times a day scheduled for etoh withdrawal. added prolixin PO 2.5 mg bid for psychosis/mood stabilization. please attempt to cut back steroids as much as safely possible as this will increase patients agitation/psych condition. -ciwa protcol with prn ativan -Patiently currently follows up with Dr. Hauser at [facility]. -Communicated plan to patient's nurse -Will continue to follow along tomorrow. -Please contact with any questions.
[2022-01-03] MEDS: hydrOXYzine pamoate 25 MG CAP PO PRN (14:20)
[2022-01-03] MEDS: LORazepam 1 MG/0.5 ML VIAL IV PRN (16:07)
[2022-01-03 16:30] LABS: Glucose,Whole Blood 224 mg/dL (70-110)
[2022-01-03 20:20] LABS: Glucose,Whole Blood 182 mg/dL (70-110)
[2022-01-03] MEDS: ATORVASTATIN 20 MG TAB PO SCH (20:38)
[2022-01-03] MEDS: QUEtiapine 100 MG TAB PO SCH (20:39)
[2022-01-04] MEDS: PIPERACILLIN-TAZOBACTAM 3.375 GM in SODIUM CHLORIDE 0.9% 100 ML IVPB SCH ×2 (00:14→08:18)
[2022-01-04] MEDS: INSULIN ASPART (NovoLOG) 100 UNIT/ML VIAL SQ SCH ×2 (06:32→12:23)
[2022-01-04 06:34] LABS: Glucose,Whole Blood 136 mg/dL (70-110)
--- NOTE | 2022-01-04 07:05 | XR ---
EXAMINATION TYPE: XR chest 1V portable DATE OF EXAM: 01/04/2022 5:44 AM COMPARISON: Chest radiographs from 01/03/2022 TECHNIQUE: XR chest 1V portable Portable AP radiograph of the chest. CLINICAL INDICATION:Male, 46 years old with history of Resp failure/asp pneumonia; FINDINGS: Lungs/Pleura: Low lung volumes. Multifocal airspace opacities. No evidence of pneumothorax or pleural effusion. Pulmonary vascularity: Unremarkable. Heart/mediastinum: Cardiomediastinal silhouette is unremarkable. Musculoskeletal: No acute osseous pathology. IMPRESSION: Low lung volumes with multifocal airspace opacities, these appear worse than prior but may be due to low lung volumes. Attention on follow-up imaging.
[2022-01-04 07:40] LABS: HCT 42.4 % (39.0-53.0); MCH 31.8 pg (25.0-35.0); MCV 96.3 fL (80.0-100.0); Mean Platelet Volume 7.4; Platelet Count 234 k/uL (150-450); RDW 13.5 % (11.5-15.5); WBC 16.8 k/uL (3.8-10.6)
[2022-01-04] MEDS: IPRATROPIUM-ALBUTEROL 3 ML NEB INHALATION SCH ×3 (07:43→15:39)
[2022-01-04] MEDS: SYMBICORT 160-4.5 MCG INHALER INHALATION SCH (07:43)
[2022-01-04 08:00] LABS: African American GFR (CKD) >90 (>60 ml/min/1.73 sqM); Anion Gap 2 mmol/L; Blood Urea Nitrogen 19 mg/dL (9-20); Calcium 8.5 mg/dL (8.4-10.2); Carbon Dioxide 37 mmol/L (22-30); Chloride 97 mmol/L (98-107); Glucose 126 mg/dL (74-99); Non-African American GFR(CKD) >90 (>60 ml/min/1.73 sqM); Potassium 4.5 mmol/L (3.5-5.1); Sodium 136 mmol/L (137-145)
[2022-01-04] MEDS: PANTOPRAZOLE 40 MG/10 ML VIAL IVP SCH (08:16)
[2022-01-04] MEDS: NICOTINE 21MG/24HR PATCH TRANSDERM SCH (08:17)
[2022-01-04] MEDS: metFORMIN 500 MG TAB PO SCH (08:17)
[2022-01-04] MEDS: ENOXAPARIN 40 MG/0.4 ML SYRINGE SQ SCH (08:17)
[2022-01-04] MEDS: QUEtiapine 50 MG TAB PO SCH (08:17)
[2022-01-04] MEDS: FUROSEMIDE 40 MG TAB PO SCH (08:17)
[2022-01-04] MEDS ORDERED: THIAMINE 100 MG TAB PO SCH (09:00)
[2022-01-04] MEDS ORDERED: predniSONE 10 MG TAB PO SCH (09:00)
[2022-01-04] MEDS: hydrOXYzine pamoate 25 MG CAP PO PRN (09:03)
[2022-01-04 09:26] VITALS: RESP 24
[2022-01-04] MEDS: [UNRECOGNIZED DRUG - OTHER] PO SCH (09:34)
--- NOTE | 2022-01-04 10:41 | P.PN ---
Subjective Progress Note Date: 01/04/22 Principal diagnosis: Mental status changes. 46-year-old male patient who came into the emergency department unresponsive and his initial GCS score was only 3. Based on that, the patient was quickly intubated to protect his airway and he was placed on a mechanical ventilator. P ost intubation, the chest x-ray showed left lower lobe pulmonary infiltrate and a small effusion and 80 tube wasn't adequate location about 3 cm above the willian. CAT scan of the brain was also done that showed no acute intracranial hemorrhage. No other acute abnormalities were noted. The bloodwork was done and the patient was found to have a white second of 20.7 with a hemoglobin of 16.4 and a platelet count of 348. Post intubation blood. Showed a pH of 7.27 with a pCO2 of 65 and a pO2 of 356 and the patient is currently on assist- control mode of mechanical ventilation at the rate of 20 and FiO2 has been dropped down to 50% with a PEEP of 5 and a tidal volume is at 500. His peak air pressures around 28. His current pulse ox is 96% on room air. He is hemodynamically stable. The sodium level is at 139 with a potassium level of 4.1 and a chloride is 89 with a serum bicarb of 31. Creatinine is at 0.5. His troponin was 0.069, LFTs were normal, urine drug screen was positive for anti- depressant tricyclic medication and the patient's serum alcohol level was 359. The patient has an extensive psychiatric history. He is also known to have a mild component of COPD. Is known to our practice. We saw him in consultation on 12/19/2021 for increased shortness of breath. He is known to have COPD with an FEV1 of 77% of predicted. Is also known to have bipolar disorder, diabetes mellitus, hypertension, ADHD, spina bifida and is a chronic smoker. He has had issues also with pancreatitis probably related to excessive alcohol drinking. He smokes every day. During his last admission, he was treated and he was discharged home on Symbicort as maintenance. His influenza screen has been negative. His Covid 19 testing during his last admission was negative. This was not done during this current admission. In terms of his mental health, the patient has been maintained on a combination of Seroquel 50 mg at bedtime,Ingreza 40/80 milligrams 1 tablet a day and fluvoxamine 100 mg at bedtime and 50 mg a morning. On today's evaluation of 01/02/2022, the patient is extubated. Overnight, the patient was having difficulties with agitation or restlessness and he was getting himself outside the bed. At that point, we increased his sedation and he was placed on a combination of propofol and fentanyl. Despite that, he was getting up and writing on a piece of paper and communicating with the nursing staff. At that point, I decided to stop the sedation and proceed with a spontaneous breathing trial and subsequently was extubated at around 3 AM in the morning. Currently, he is extubated on 6 L of oxygen by nasal cannula. Breathing is nonlabored. However, he feels that he is anxious and at times she is having tachypnea. He has a congested cough and is bringing up some thick purulent material. His chest x-ray shows some improvement in left lower lobe pulmonary infiltrate. No new onset consolidations. He remains on IV Zosyn. Sputum sample will be sent accordingly. He is also on bronchodilators. He is on steroids also. No significant tremors. He has history of bipolar disorder. He is communicating well. He is a psychiatric medication was restarted. He was given Ativan a total of 0.5 mg at 6:40 AM this morning. At the same time, his going to have a swallow evaluation to assess his ability to swallow. The patient's blood work from today shows a white cell count of 20.9 with a hemoglobin of 15.3. Rest of the blood work is showing normal renal function, normal electrolytes, LFTs were normal yesterday. He states that he drank some corn whiskey yesterday. His last drink prior to that was about 6 months ago. Note that he did not reliable historian. Progress note dated 01/03/2022. This is a 46-year-old male who was admitted on January 01, for bipolar disorder, schizoaffective disorder, alcohol abuse, and overdose. The patient was intubated on January 01, and extubated the next day on January 02. He is currently on 4 L. He is seen today in room 256. He remains on Zosyn for possible aspiration pneumonia. He's not receiving any IV fluids. The patient is an overflow patient can be transferred to the general medical floor, without telemetry. His chest x-ray showed a left basilar infiltrate. White count 24.1, hemoglobin 13, hematocrit 43.3, and platelet count 282,000. Sodium 140, potassium 4.1, chlorides 96, CO2 38, BUN 15, creatinine 0.48. The patient's chest x-ray shows improving left lower lobe infiltrate. Progress note dated 01/04/2022. 46-year-old male admitted on January 01 for bipolar disorder, schizoaffective disorder, alcohol abuse, and overdose. The patient was intubated on January 01, and extubated the next day on January 02. He is currently on 2 L. He is seen today in room 256. He's not receiving any IV fluids. I did ask the nurse to make sure psychiatry sees him. I've also DC'd the daily chest x-rays. Labs today include a white count of 16.8, with a normal hemoglobin, hematocrit, and platelet count. Sodium 136, potassium 4.5, chlorides 97, CO2 37, BUN 19, creatinine 0.44. Sputum is showing evidence of gram-negative bacilli. The patient remains on Zosyn. The patient can be transferred out to the general medical floor. Objective - Vital Signs Vital signs: Vital Signs Temp 98.4 F 01/04/22 08:00 Pulse 100 01/04/22 08:00 Resp 24 01/04/22 08:00 BP 117/81 01/04/22 08:00 Pulse Ox 94 L 01/04/22 08:00 FiO2 50 01/02/22 01:30 Intake & Output 01/03/22 01/04/22 01/04/22 18:59 06:59 18:59 Intake Total 3500 Output Total 1050 0 Balance 2450 -2050 Weight 86 kg Intake: Oral 3500 Output: Urine 1050 2049 Other: Voiding Method Bedside Commode Urinal Urinal Urinal # Voids 2 - Exam No acute distress, oriented 3. Currently on 2 L of oxygen. HEENT examination is grossly unremarkable. Neck supple. Full range of motion. No adenopathy thyromegaly or neck vein distention. Cardiovascular examination reveals regular rhythm rate. S1-S2 normal. No S3 or S4. No discernible murmur noted. Heart rate 90 bpm. Lungs reveal mild scattered rhonchi. No wheezes or crackles. Breath sounds equal bilaterally. Saturations are 94%.. Abdomen soft bowel sounds are heard. No masses or tenderness. Extremities are intact. No cyanosis clubbing or edema. Skin is without rash or lesion. Neurologic examination is brief but nonfocal. - Labs CBC & Chem 7: 01/04/22 07:07 01/04/22 07:07 Labs: Abnormal Lab Results - Last 24 Hours (Table) 01/03/22 01/03/22 01/03/22 Range/Units 11:09 16:28 20:18 WBC (3.8-10.6) k/uL Sodium (137-145) mmol/L Chloride (98-107) mmol/L Carbon Dioxide (22-30) mmol/L Creatinine (0.66-1.25) mg/dL Glucose (74-99) mg/dL POC Glucose (mg/dL) 202 H 224 H 182 H (70-110) mg/dL 01/04/22 01/04/22 01/04/22 Range/Units 06:32 07:07 07:07 WBC 16.8 H (3.8-10.6) k/uL Sodium 136 L (137-145) mmol/L Chloride 97 L (98-107) mmol/L Carbon Dioxide 37 H (22-30) mmol/L Creatinine 0.44 L (0.66-1.25) mg/dL Glucose 126 H (74-99) mg/dL POC Glucose (mg/dL) 136 H (70-110) mg/dL Microbiology - Last 24 Hours (Table) 01/01/22 15:15 Blood Culture - Preliminary Blood No Growth after 48 hours 01/01/22 15:30 Blood Culture - Preliminary Blood No Growth after 48 hours 01/01/22 16:00 Gram Stain - Preliminary Sputum Sputum Culture - Preliminary Gram Neg Bacilli Assessment and Plan Assessment: Acute unresponsiveness, and inability to protect his airway, status post intubation on January 01, and extubation successfully on 01/02/2022. Acute hypoxemic and hypercapnic respiratory failure, resolved. Left lower lobe pneumonia, improved, likely secondary to aspiration, sputum positive for gram-negative bacilli. Mild/moderate COPD with an FEV1 that's 77% of predicted. Diabetes mellitus. Hypertension. History of chronic bipolar disorder and chronic anxiety. History of chronic alcohol abuse. History of spina bifida. History of ongoing tobacco use with nicotine addiction. Prior history of pancreatitis. History of migraine cephalgia. History of back surgery. Plan: Plan dated 01/03/2022 The patient could be transferred out of the intensive care unit. The patient continues on Zosyn. The patient's chest x-rays improved. Labs, x-rays, medications are reviewed. The patient will have a psychiatric evaluation if not or ready done so. We will continue to follow make recommendations along the way. Again, the patient could be transferred out of the intensive care unit, the general medical floor, without telemetry. Plan dated 01/04/2022. The patient is stable for transfer out of the intensive care unit to the general medical floor without telemetry. For his anxiety, I've asked the nurse to consult or call psychiatry. The patient's on Zosyn for sputum showing evidence of gram-negative bacilli. We will await for identification. Labs, x-rays, and medications are reviewed. No additional recommendations are made. Prognosis is certainly guarded. Time with Patient: Less than 30
[2022-01-04 11:40] LABS: Glucose,Whole Blood 154 mg/dL (70-110)
[2022-01-04] MEDS ORDERED: hydrOXYzine pamoate 25 MG CAP PO PRN (12:10)
--- NOTE | 2022-01-04 12:16 | P.PN ---
Progress Note - Text Progress Note Date: 01/04/22 Interval History: Patient was seen today for psychiatric follow-up. Patient's nurse states that patient was agitated and anxious this morning however after receiving his medications was able to calm down more. Patient was served lunch and eating well speaking with commercial loan underwriter. Patient continues to state that he feels anxious and continues to be preoccupied with Klonopin and Ativan. He continues to have chronically limited insight and judgment into his medications. His vocal and motor tics appeared to be mildly improved since yesterday. He claims that he did sleep better last night. He states that his appetite is fair at this time. He was receiving his breathing treatment which he claims is getting a bit better. He was alert and oriented x 3. He appeared to be less intrusive and less paranoid today. At this time patient denies any suicidal or homical ideations, intent or plan. Patient denies any auditory, visual hallucinations and denies any paranoia or delusions. Patient denies any side effects from the medications and has been compliant with meds. Mental Status Exam: General Appearance: Patient appears to be overweight, disheveled appearance, several tattoos, older than stated age is alert, appears to be less anxious however is attempting to cooperate. Patient appears to have at mildly improving hygiene and grooming wearing hospital gown with fair and intense eye contact. vocal and motor tics present, mildly improved since yesterday. Behavior: Patient is lying in bed however appears to be calmer and less restless Speech: Patient's speech is fluent and nonpressured. hesitant. Mood/Affect: Patient reports their mood is "anxious", affect is congruent and appears to be less anxious Suicidality/Homicidality: Patient denies having any suicidal or homicidal ideation intent or plan. Perceptions: Patient denies any visual hallucinations and denies any auditory hallucinations Though content/process: There is no evidence of any delusional thought content and thought process is linear and goal-directed. [place], focused on medications. Memory and concentration: AOX3, grossly intact for the purposes of this session Judgment and insight: chronically limited IMPRESSIONS: Bipolar disorder, depressed Anxiety disorder unspecified unspecified tic disorder r/o tardive dyskinesia History of alcohol abuse COPD exacerbation Nicotine dependence PLAN: -At this time patient DOES NOT meet criteria for inpatient psychiatric admission. -Delirium precautions recommended with patient including - avoiding use of narcotics and PET [employer]ER sedatives, limit anticholinergic medications when possible, frequent re-orientation, minimize use of restraints, open window shades during the day and close them at night -Would recommend the following medication changes/additions: increase Seroquel 100 mg daily + 100 mg qhs for anxiety/ mood stabilization/sleep. increase Vistaril when necessary for anxiety. contiinue with home dose of fluvoxamine. decrease librium 10 mg 3 times a day scheduled for etoh withdrawal. increase prolixin PO 3 mg bid for psychosis/mood stabilization. please attempt to cut back steroids as much as safely possible as this will increase patients agitation/psych condition. -ciwa protcol with prn ativan -Patiently currently follows up with Dr. Hauser at [facility]. -Communicated plan to patient's nurse -Will continue to follow along if needed -Patient cannot care for himself at this time and will likely relapse on drinking and potentially harm himself or overdose on his medications therefore SW/CM should look safe placement options -Please contact with any questions.
[2022-01-04 14:27] VITALS: BP 136/103; TEMP 98.2
[2022-01-04 15:52] VITALS: PULSE 96
[2022-01-05] MEDS ORDERED: QUEtiapine 100 MG TAB PO SCH (09:00)
--- NOTE | 2022-01-08 13:16 | P.PN ---
Subjective Progress Note Date: 01/03/22 This is a pleasant 46 years old male with past medical history of Asthma, COPD, Diabetes Mellitus, GERD/Reflux, Hypertension, hx spina bifida, spinal stenosis, pancreatitis. , uses wheelchair-can ambulate but does fall at times. ADD/ADHD, Anxiety, Bipolar, Tardive Dyskinesia, back surgery, Current every day smoker Patient presents with altered mental status and unresponsiveness Altered mental status, mostly secondary to metabolic/toxic encephalopathy patient is afebrile and blood pressure is stable. Labs showed leukocytosis of 20.7. PH 7.2, pCO2-65. Lactic acid at 2.7. Alcohol level is elevated at 359 Urine drug screen is positive for tricyclic antidepressant CT of the brain is negative Chest x-ray showed left lower lobe infiltrate and small effusion suspicious for pneumonia. EKG showing normal sinus rhythm at [address]-T changes. Troponin is elevated mildly Echocardiogram performed 07/2021: Ejection fraction 55-60%. LVH 01/02/2022 Patient got extubated, he is awake and alert but looks like agitated although he looks pleasant. He has bad lower teeth dentures and absent all 4 teeth, we'll ask for swallow evaluation He is currently on Ativan when necessary and psych medication and psychiatric we'll see the patient Also he is on Solu-Medrol and Zosyn Leukocytosis of 20 and his breathing more comfortable with mild tachypnea. His oxygen requirement to 6 L/m 01/03/2022 Patient is extubated. Awake alert and looks anxious. Still complains of shortness of breath. Bilateral wheezing is much improved. Patient is being covered on antibiotics in the form of Zosyn and IV steroids will be changed to by mouth. Psychiatric has seen the patient and recommended no inpatient psychiatric admission.. Patient has been afebrile. No nausea vomiting or abdominal pain or diarrhea. No cough or sputum production. No chest pain. Current medications reviewed. Objective - Vital Signs Vital signs: Vital Signs Temp 99.7 F H 01/03/22 00:00 Pulse 100 01/03/22 20:39 Resp 20 01/03/22 20:00 BP 146/96 01/03/22 20:00 Pulse Ox 94 L 01/03/22 20:00 FiO2 50 01/02/22 01:30 Intake & Output 01/03/22 01/03/22 01/04/22 06:59 18:59 06:59 Intake Total 100 3500 Output Total 2305 1050 Balance -2205 2450 Weight 81.6 kg Intake: IV 100 Piperacillin-Tazobactam 3 100 .375 gm In Sodium Chloride 0.9% 100 ml @ 200 mls/hr IVPB ONCE STA Rx#:[id number] Oral 3500 Output: Urine 2305 1050 Other: Voiding Method Indwelling Catheter Bedside Commode Urinal # Voids 2 - Exam - Exam -GENERAL: The patient is alert and oriented , he is agitated has back dentures, not in any acute distress. Well developed, well nourished. HEENT: Pupils are round and equally reacting to light. EOMI. No scleral icterus. No conjunctival pallor. Normocephalic, atraumatic. No pharyngeal erythema. No thyromegaly. CARDIOVASCULAR: S1 and S2 present. No murmurs, rubs, or gallops. PULMONARY: Chest is clear to auscultation, no wheezing or crackles. ABDOMEN: Soft, nontender, nondistended, normoactive bowel sounds. No palpable organomegaly. MUSCULOSKELETAL: No joint swelling or deformity. EXTREMITIES: No cyanosis, clubbing, or pedal edema. NEUROLOGICAL: Gross neurological examination did not reveal any focal deficits. SKIN: No rashes. no petechiae. - Labs CBC & Chem 7: 01/04/22 07:07 01/04/22 07:07 Labs: Abnormal Lab Results - Last 24 Hours (Table) 01/02/22 01/03/22 01/03/22 Range/Units 23:51 05:47 06:26 WBC 24.1 H (3.8-10.6) k/uL Chloride (98-107) mmol/L Carbon Dioxide (22-30) mmol/L Creatinine (0.66-1.25) mg/dL Glucose (74-99) mg/dL POC Glucose (mg/dL) 155 H 172 H (70-110) mg/dL 01/03/22 01/03/22 01/03/22 Range/Units 06:26 11:09 16:28 WBC (3.8-10.6) k/uL Chloride 96 L (98-107) mmol/L Carbon Dioxide 38 H (22-30) mmol/L Creatinine 0.48 L (0.66-1.25) mg/dL Glucose 182 H (74-99) mg/dL POC Glucose (mg/dL) 202 H 224 H (70-110) mg/dL 01/03/22 Range/Units 20:18 WBC (3.8-10.6) k/uL Chloride (98-107) mmol/L Carbon Dioxide (22-30) mmol/L Creatinine (0.66-1.25) mg/dL Glucose (74-99) mg/dL POC Glucose (mg/dL) 182 H (70-110) mg/dL Microbiology - Last 24 Hours (Table) 01/01/22 15:15 Blood Culture - Preliminary Blood No Growth after 48 hours 01/01/22 15:30 Blood Culture - Preliminary Blood No Growth after 48 hours 01/01/22 16:00 Gram Stain - Preliminary Sputum Sputum Culture - Preliminary Gram Neg Bacilli Assessment and Plan Assessment: Acute hypoxemic Respiratory failure requiring mechanical ventilation. Currently extubated. Asthma/COPD with acute exacerbation Left lower lobe pneumonia Alcohol intoxication at risk of withdrawal elevated troponin, most likely secondary to type II RI which is the month supply ischemia. Diabetes mellitus Nicotine dependence History of GERD Hypertension History of spinal stenosis History of ADD/ADHD, Anxiety, Bipolar History of tardive dyskinesia Plan: Continue with ICU monitoring Pulmonary/critical care consult Continue with oxygen as needed Continue with IV Solu-Medrol Continue with Zosyn follow-up with cardiology consult Psychiatric has seen the patient and a snow inpatient admission. DVT prophylaxis: Subcutaneous heparin GI Prophylaxis: Ppi Prognosis is guarded Time with Patient: Greater than 30
--- NOTE | 2022-01-08 13:34 | P.DS ---
Providers Date of admission: 01/01/22 15:12 Expected date of discharge: 01/04/22 Attending physician: Gavin De La Rosa MD Consults: 01/01/22 15:12 Consult Physician Stat Consulting Provider: Chapo Crain Consult Reason/Comments: Critical care management Do you want consulting provider notified?: Yes 01/02/22 06:20 Consult Physician Stat Consulting Provider: Adrian Carmona Consult Reason/Comments: Psych history, possible TCA overdose Do you want consulting provider notified?: Yes Primary care physician: [facility] Hospital Course: Discharge diagnosis Acute hypoxemic Respiratory failure requiring mechanical ventilation. Currently extubated. Asthma/COPD with acute exacerbation Left lower lobe pneumonia. Sputum cultures growing gram-negative bacilli Alcohol intoxication at risk of withdrawal elevated troponin, most likely secondary to type II [place] which is the month supply ischemia. Diabetes mellitus Nicotine dependence History of GERD Hypertension History of spinal stenosis History of ADD/ADHD, Anxiety, Bipolar History of tardive dyskinesia Hospital course This is a pleasant 46 years old male with past medical history of Asthma, COPD, Diabetes Mellitus, GERD/Reflux, Hypertension, hx spina bifida, spinal stenosis, pancreatitis. , uses wheelchair-can ambulate but does fall at times. ADD/ADHD, Anxiety, Bipolar, Tardive Dyskinesia, back surgery, Current every day smoker Patient presents with altered mental status and unresponsiveness Altered mental status, mostly secondary to metabolic/toxic encephalopathy patient is afebrile and blood pressure is stable. Labs showed leukocytosis of 20.7. PH 7.2, pCO2-65. Lactic acid at 2.7. Alcohol level is elevated at 359 Urine drug screen is positive for tricyclic antidepressant CT of the brain is negative Chest x-ray showed left lower lobe infiltrate and small effusion suspicious for pneumonia. EKG showing normal sinus rhythm at [address]-T changes. Troponin is elevated mildly Echocardiogram performed 07/2021: Ejection fraction 55-60%. LVH 01/02/2022 Patient got extubated, he is awake and alert but looks like agitated although he looks pleasant. He has bad lower teeth dentures and absent all 4 teeth, we'll ask for swallow evaluation He is currently on Ativan when necessary and psych medication and psychiatric we'll see the patient Also he is on Solu-Medrol and Zosyn Leukocytosis of 20 and his breathing more comfortable with mild tachypnea. His oxygen requirement to 6 L/m 01/03/2022 Patient is extubated. Awake alert and looks anxious. Still complains of shortness of breath. Bilateral wheezing is much improved. Patient is being covered on antibiotics in the form of Zosyn and IV steroids will be changed to by mouth. Psychiatric has seen the patient and recommended no inpatient psychiatric admission.. Patient has been afebrile. No nausea vomiting or abdominal pain or diarrhea. No cough or sputum production. No chest pain. 01/04/2022 Patient is currently in the MICU. Requiring 2 L oxygen via nasal cannula. No complaints of chest pain or worsening shortness of breath. Continued on oral prednisone. Also on antibiotics in the form of Zosyn. Sputum cultures growing gram-negative bacilli. Final culture report is pending. Patient will return on antibiotic and psychiatric medication doses adjusted by psychiatric. Laboratory showed WBC 16.8, sodium 136 potassium 4.5 chloride 97 bicarb is 37 BUN 19 creatinine 0.44. Patient is cleared from pulmonary standpoint patient is being discharged home today. Patient left hospital without no prescriptions. PHYSICAL EXAMINATION: Patient is lying in the bed comfortably, no acute distress, awake alert and oriented.. HEENT: Normocephalic. Neck is supple. Pupils reactive. Nostrils clear. Oral cavity is moist. Neck reveals no JVD, carotid bruits, or thyromegaly. CHEST EXAMINATION: Trachea is central. Symmetrical expansion. No wheezing or rhonchi.. CARDIAC: Normal S1, S2 with no gallops. No murmurs ABDOMEN: Soft. Bowel sounds normal. No organomegaly. No abdominal bruits. Extremities: reveal no edema. No clubbing or cyanosis Neurologically awake, alert, oriented x3 with well-coordinated movements. No focal deficits noted Skin: No rash or skin lesions. Psychiatric: Coperative. Nonsuicidal, anxious. Musculoskeletal: No joint swelling or deformity. Normal range of motion. Vital signs: Vital Signs Temp 98.4 F 01/04/22 08:00 Pulse 100 01/04/22 08:00 Resp 24 01/04/22 08:00 BP 117/81 01/04/22 08:00 Pulse Ox 94 L 01/04/22 08:00 FiO2 50 01/02/22 01:30 Intake & Output 01/03/22 01/04/22 01/04/22 18:59 06:59 18:59 Intake Total 3500 Output Total 1050 0 Balance 2449 -2049 Weight 86 kg Intake: Oral 3500 Output: Urine 1050 2049 Other: Voiding Method Bedside Commode Urinal Urinal Urinal # Voids 2 Patient Condition at Discharge: Fair Plan - Discharge Summary Discharge Rx Participant: Yes New Discharge Prescriptions: New fluPHENAZine [Prolixin] 3 mg PO DAILY #60 tablet Thiamine [Vitamin B-1] 100 mg PO DAILY #30 tablet hydrOXYzine pamoate [Vistaril] 50 mg PO TID PRN #60 cap PRN Reason: Anxiety Continue metFORMIN HCL [Glucophage] 1,000 mg PO BID Atorvastatin Calcium [Lipitor] 20 mg PO HS fluvoxaMINE [Luvox] 100 mg PO HS fluvoxaMINE [Luvox] 50 mg PO DAILY Furosemide [Lasix] 40 mg PO DAILY tab Budesonide-Formot 160-4.5 Mcg [Symbicort 160-4.5 Mcg Inhaler] 2 puff INHALATION RT-BID each Valbenazine Tosylate [Ingrezza 40/80 MG Initiation Pack] 1 cap PO DAILY Ipratropium-Albuterol Nebulize [Duoneb 0.5 mg-3 mg/3 ml Soln] 3 ml INHALATION RT-QID PRN PRN Reason: Shortness Of Breath Cholecalciferol [Vitamin D3 (125 Mcg = 5000 Iu)] 125 mcg PO DAILY Empagliflozin [Jardiance] 25 mg PO DAILY Albuterol Sulfate [Ventolin HFA] 2 puff INHALATION RT-QID PRN #1 each PRN Reason: Shortness Of Breath Omeprazole 20 mg PO DAILY Discontinued QUEtiapine [SEROquel] 50 mg PO HS Potassium Chloride ER [K-Dur 20] 20 meq PO DAILY No Action Amoxic-Pot Clav 875-125Mg [Augmentin 875-125] 1 tab PO Q12HR 1 Days #12 tab QUEtiapine [SEROquel] 100 mg PO BID Discharge Medication List Atorvastatin Calcium [Lipitor] 20 mg PO HS 12/31/20 [History] Empagliflozin [Jardiance] 25 mg PO DAILY 12/31/20 [History] metFORMIN HCL [Glucophage] 1,000 mg PO BID 12/31/20 [History] fluvoxaMINE [Luvox] 50 mg PO DAILY 07/17/21 [History] fluvoxaMINE [Luvox] 100 mg PO HS 07/17/21 [History] Budesonide-Formot 160-4.5 Mcg [Symbicort 160-4.5 Mcg Inhaler] 2 puff INHALATION RT-BID each 08/03/21 [Rx] Furosemide [Lasix] 40 mg PO DAILY tab 08/03/21 [Rx] Valbenazine Tosylate [Ingrezza 40/80 MG Initiation Pack] 1 cap PO DAILY 12/16/21 [History] Albuterol Sulfate [Ventolin HFA] 2 puff INHALATION RT-QID PRN #1 each 12/20/21 [Rx] Cholecalciferol [Vitamin D3 (125 Mcg = 5000 Iu)] 125 mcg PO DAILY 12/28/21 [History] Ipratropium-Albuterol Nebulize [Duoneb 0.5 mg-3 mg/3 ml Soln] 3 ml INHALATION RT-QID PRN 12/28/21 [History] Omeprazole 20 mg PO DAILY 12/28/21 [History] Thiamine [Vitamin B-1] 100 mg PO DAILY #30 tablet 01/04/22 [Rx] fluPHENAZine [Prolixin] 3 mg PO DAILY #60 tablet 01/04/22 [Rx] hydrOXYzine pamoate [Vistaril] 50 mg PO TID PRN #60 cap 01/04/22 [Rx] Amoxic-Pot Clav 875-125Mg [Augmentin 875-125] 1 tab PO Q12HR 1 Days #12 tab [Rx] QUEtiapine [SEROquel] 100 mg PO BID 01/07/22 [History] Follow up Appointment(s)/Referral(s): Anne Sosa MD [Primary Care Provider] - 1-2 days Patient Instructions/Handouts: Alcohol Intoxication (DC), Anxiety (GEN) Discharge Disposition: HOME SELF-CARE
== END 2022-01-04 16:47 | disposition home or self-care (01) | DRG 208 ==
LOC: EC 12:19 → 2SICU 15:12
PROVIDERS: ADMIT Internal Medicine; ATTEND Internal Medicine
PROC: 0BH17EZ Insertion of Endotracheal Airway into Trachea, Via Natural or Artificial Opening (ICD-10-PCS; principal; 2022-01-01)
PROC: 5A1935Z Respiratory Ventilation, Less than 24 Consecutive Hours (ICD-10-PCS; principal; 2022-01-01)
DX: J15.6 Pneumonia due to other Gram-negative bacteria (principal); G92.8 Other toxic encephalopathy; J96.02 Acute respiratory failure with hypercapnia; J96.01 Acute respiratory failure with hypoxia; I21.A1 Myocardial infarction type 2; J44.1 Chronic obstructive pulmonary disease with (acute) exacerbation; J44.0 Chronic obstructive pulmonary disease with (acute) lower respiratory infection; F10.139 Alcohol abuse with withdrawal, unspecified; F10.129 Alcohol abuse with intoxication, unspecified; F31.9 Bipolar disorder, unspecified; F25.9 Schizoaffective disorder, unspecified; E11.9 Type 2 diabetes mellitus without complications; Q05.9 Spina bifida, unspecified; T43.011A Poisoning by tricyclic antidepressants, accidental (unintentional), initial encounter; Y90.8 Blood alcohol level of 240 mg/100 ml or more; F90.9 Attention-deficit hyperactivity disorder, unspecified type; K21.9 Gastro-esophageal reflux disease without esophagitis; I10 Essential (primary) hypertension; F41.9 Anxiety disorder, unspecified; M48.00 Spinal stenosis, site unspecified; G24.01 Drug induced subacute dyskinesia; G43.909 Migraine, unspecified, not intractable, without status migrainosus; E66.3 Overweight; Z68.28 Body mass index [BMI] 28.0-28.9, adult; F17.210 Nicotine dependence, cigarettes, uncomplicated; Z71.6 Tobacco abuse counseling; Z79.51 Long term (current) use of inhaled steroids; Z79.84 Long term (current) use of oral hypoglycemic drugs; Z79.899 Other long term (current) drug therapy; Z91.81 History of falling
CPT/HCPCS: 36415; 36600; 70450; 71045; 80048; 80053; 80306; 80320; 82140; 82805; 83605; 83735; 84484; 85025; 85027; 85610; 85730; 87040; 87070; 87077; 87186; 87205; 93005; 94002; 94003; 94640; 94760; 96361; 96374; 96375; 99284

== ENCOUNTER 2022-01-05 16:34 | Emergency (ER) | payer MEDICARE, OTHER ==
[2022-01-05 16:46] VITALS: TEMP 97.8
[2022-01-05] MEDS ORDERED: PIPERACILLIN-TAZOBACTAM 3.375 GM in SODIUM CHLORIDE 0.9% 100 ML IVPB STA (16:47)
[2022-01-05] MEDS ORDERED: LORazepam 2 MG/ML INJ IV STA (16:48)
[2022-01-05] MEDS ORDERED: IPRATROPIUM-ALBUTEROL 3 ML NEB INHALATION STA (16:49)
[2022-01-05] MEDS ORDERED: SODIUM CHLORIDE 0.9% 1,000 ML with THIAMINE 100 MG, FOLIC ACID 1 MG IV ONE ×3 (16:49)
--- NOTE | 2022-01-05 16:53 | ED ---
General Adult HPI - General Chief complaint: Anxiety Stated complaint: Anxiety Time Seen by Provider: 01/05/22 16:39 Source: EMS, RN notes reviewed Mode of arrival: EMS Limitations: no limitations - History of Present Illness Initial comments: This is a 46-year-old male who was admitted here on January 01 with initial [place] Coma Scale 3. Patient was intubated and sent to the ICU. At that time it was shown that the patient had a left lower lobe infiltrate. This is since cultured out Klebsiella pneumoniae. Treated with IV antibiotics and discharged yesterday. However the patient states since going home he now has developed anxiety and shortness of breath again. Patient denying any pain. Patient states she has not had any alcohol or drug since going home. On initial arrival on the first patient's alcohol level was 348. Rations main complaint now is shortness of breath and anxiety. Patient was seen and evaluated by pulmonary and critical care during his stay in the ICU. POSITIVE anxiety, No headache, no fever or chills, no changes in vision or hearing, no sore throat or difficulty with speech, no neck pain, no chest pain, no abdominal pain, no nausea or vomiting, no changes in urination or bowel movements, no numbness or tingling, no extremity pain, no skin rashes or lesions. Past medical, surgical, social, and family history reviewed. - Related Data Home Medications Medication Instructions Recorded Confirmed Atorvastatin Calcium [Lipitor] 20 mg PO HS 12/31/20 01/01/22 Empagliflozin [Jardiance] 25 mg PO DAILY 12/31/20 01/01/22 metFORMIN HCL [Glucophage] 1,000 mg PO BID 12/31/20 01/01/22 fluvoxaMINE [Luvox] 50 mg PO DAILY 07/17/21 01/01/22 fluvoxaMINE [Luvox] 100 mg PO HS 07/17/21 01/01/22 Valbenazine Tosylate [Ingrezza 1 cap PO DAILY 12/16/21 01/01/22 40/80 MG Initiation Pack] Cholecalciferol [Vitamin D3 (125 125 mcg PO DAILY 12/28/21 01/01/22 Mcg = 5000 Iu)] Ipratropium-Albuterol Nebulize 3 ml INHALATION RT-QID PRN 12/28/21 01/01/22 [Duoneb 0.5 mg-3 mg/3 ml Soln] Omeprazole 20 mg PO DAILY 12/28/21 01/01/22 Previous Rx's Medication Instructions Recorded Budesonide-Formot 160-4.5 Mcg 2 puff INHALATION RT-BID each 08/03/21 [Symbicort 160-4.5 Mcg Inhaler] Furosemide [Lasix] 40 mg PO DAILY tab 08/03/21 Albuterol Sulfate [Ventolin HFA] 2 puff INHALATION RT-QID PRN #1 12/20/21 each QUEtiapine [SEROquel] 100 mg PO DAILY #30 tablet 01/04/22 QUEtiapine [SEROquel] 100 mg PO HS #30 tablet 01/04/22 Thiamine [Vitamin B-1] 100 mg PO DAILY #30 tablet 01/04/22 chlordiazePOXIDE HCl [Librium] 10 mg PO TID 3 Days #9 capsule 01/04/22 fluPHENAZine [Prolixin 1MG] 3 mg PO DAILY #60 tablet 01/04/22 hydrOXYzine pamoate [Vistaril] 50 mg PO TID PRN #60 cap 01/04/22 predniSONE 10 mg PO DAILY #6 tab 01/04/22 Amoxic-Pot Clav 875-125Mg 1 tab PO Q12HR 1 Days #12 tab 01/05/22 [Augmentin 875-125] chlordiazePOXIDE HCl [Librium] 10 mg PO TID 3 Days #9 capsule 01/05/22 Allergies Allergy/AdvReac Type Severity Reaction Status Date / Time metals Allergy Rash/Hives, Uncoded 12/31/21 06:54 swelling Review of Systems ROS Statement: Those systems with pertinent positive or pertinent negative responses have been documented in the HPI. ROS Other: All systems not noted in ROS Statement are negative. Past Medical History Past Medical History: Asthma, COPD, Diabetes Mellitus, GERD/Reflux, Hypertension, Skin Disorder Additional Past Medical History / Comment(s): hx spina bifida, spinal stenosis, pancreatitis. scrotal wound (to start on antibiotics 10/31/15), migraines, uses wheelchair-can ambulate but does fall at times. Tardive Dyskinesia History of Any Multi-Drug Resistant Organisms: None Reported Past Surgical History: Back Surgery Additional Past Surgical History / Comment(s): back surgery- 3 rods, 4 screws Past Anesthesia/Blood Transfusion Reactions: No Reported Reaction Past Psychological History: ADD/ADHD, Anxiety, Bipolar Smoking Status: Current every day smoker Past Alcohol Use History: Abuse Past Drug Use History: None Reported - Past Family History Mother Family Medical History: Cancer Father Family Medical History: Cancer General Exam - General Exam Comments Initial Comments: Patient appears to be in respiratory distress. Does not appear to be systemically ill otherwise. Capillary refill is less than 2 seconds. Patient currently on 2 L of oxygen via nasal cannula. Patient is noted be tachypnea. No mottling. Limitations: no limitations General appearance: alert, in distress Head exam: Present: atraumatic, normocephalic, normal inspection Eye exam: Present: normal appearance, PERRL, EOMI. Absent: scleral icterus, conjunctival injection, periorbital swelling ENT exam: Present: normal exam, normal oropharynx, mucous membranes moist, normal external ear exam. Absent: mucous membranes dry Neck exam: Present: normal inspection, full ROM. Absent: tenderness, meningismus, lymphadenopathy Respiratory exam: Present: respiratory distress, rhonchi. Absent: normal lung sounds bilaterally, wheezes, rales, stridor, decreased breath sounds, prolonged expiratory Cardiovascular Exam: Present: normal rhythm, tachycardia, normal heart sounds. Absent: regular rate, systolic murmur, diastolic murmur, rubs, gallop, clicks GI/Abdominal exam: Present: soft, normal bowel sounds. Absent: distended, tenderness, guarding, rebound, rigid Extremities exam: Present: normal inspection, full ROM, normal capillary refill. Absent: tenderness, pedal edema, joint swelling, calf tenderness Back exam: Present: normal inspection Neurological exam: Present: alert, oriented X3, CN II-XII intact Psychiatric exam: Present: normal affect, normal mood Skin exam: Present: warm, dry, intact, normal color. Absent: rash Course Vital Signs 01/05/22 01/05/22 01/05/22 16:41 17:12 17:19 Temperature 97.8 F Pulse Rate 105 H 100 94 Respiratory 36 H Rate Blood Pressure 160/116 O2 Sat by Pulse 95 Oximetry 01/05/22 18:00 Temperature Pulse Rate 87 Respiratory 28 H Rate Blood Pressure 139/90 O2 Sat by Pulse 97 Oximetry - Reevaluation(s) Reevaluation #1: 01/05/22 18:38 Medical record is reviewed Symptoms are improved here in the emergency department Patient is informed of results and questions answered Patient in no distress Reevaluation #2: 01/05/22 18:55 Patient states he is feeling better. I did repeat the respiratory myself. Patient respiratory rate is 20, maintaining oxygen saturation 96% on no oxygen. EKG Findings - EKG Comments: EKG Findings:: EKG done at 1832 read by the ED attending physician reveals sinus rhythm with a ID interval of 119 ms. Other intervals are normal. EKG interpretation nonspecific ST elevation which appears to be consistent with the patient's previous EKG from January 01. Patient does have a change in T-wave am plitude. Borderline right axis deviation. Medical Decision Making - Medical Decision Making Patient was intubated. Will order cardiopulmonary workup to include blood cultures, lactic acid, d-dimer. We'll start the patient on banana bag. I did give 1 mg of Ativan for anxiety. We'll order a DuoNeb treatment. Going to give the patient a dose of Zosyn as he did show Klebsiella pneumonia on chest x-ray. It does not appear the patient was sent home on any antibiotics.Patient's vital signs have stabilized. Patient's chest x-ray has showed evidence of clearing. Patient did show Klebsiella and sputum culture. I'm going to continue antibiotics for an additional 5 days. We'll treat with Augmentin as the patient was given Zosyn here in the hospital. I 1 to give a short course of Librium as well. Laboratory patient's alcohol level here was negative today. Patient was told to return to the ER for any signs or symptoms worsen. Told to return immediately if any other problems arise. All questions answered. Treatment plan discussed. Patient in agreement Every effort has been made to ensure accuracy of this dictation. However, due to the limitations of electronic medical records and dictation devices, errors in charting still occur. I did offer admission to the patient. However he states he would like to go home. Patient states he was given antibiotics to go home with however I'm unsure whether he actually pick these up. Patient also did not meat pickler the Librium which was sent. I did offer admission to the patient. However he states he would like to go home. Patient states he was given antibiotics to go home with however I'm unsure whether he actually pick these up. Patient also did not meat pickler the Librium which was sent. The case was discussed in detail with ED attending physician. Presentation, findings, treatment plan discussed in detail. Admin Dir Dr. Huggins - Lab Data Result diagrams: 01/05/22 16:50 01/05/22 16:50 Lab Results 01/05/22 01/05/22 01/05/22 Range/Units 16:50 16:50 16:50 WBC 14.5 H (3.8-10.6) k/uL RBC 5.09 (4.30-5.90) m/uL Hgb 15.6 (13.0-17.5) gm/dL Hct 48.3 (39.0-53.0) % MCV 94.8 (80.0-100.0) fL MCH 30.7 (25.0-35.0) pg MCHC 32.4 (31.0-37.0) g/dL RDW 13.3 (11.5-15.5) % Plt Count 243 (150-450) k/uL MPV 7.3 Neutrophils % 89 % Lymphocytes % 6 % Monocytes % 4 % Eosinophils % 1 % Basophils % 0 % Neutrophils # 12.9 H (1.3-7.7) k/uL Lymphocytes # 0.8 L (1.0-4.8) k/uL Monocytes # 0.6 (0-1.0) k/uL Eosinophils # 0.2 (0-0.7) k/uL Basophils # 0.0 (0-0.2) k/uL PT 10.5 (9.0-12.0) sec INR 1.0 (<1.2) D-Dimer 0.46 (<0.60) mg/L FEU Sodium 136 L (137-145) mmol/L Potassium 4.2 (3.5-5.1) mmol/L Chloride 92 L (98-107) mmol/L Carbon Dioxide 36 H (22-30) mmol/L Anion Gap 8 mmol/L BUN 24 H (9-20) mg/dL Creatinine 0.48 L (0.66-1.25) mg/dL Est GFR (CKD-EPI)AfAm >90 (>60 ml/min/1.73 sqM) Est GFR (CKD-EPI)NonAf >90 (>60 ml/min/1.73 sqM) Glucose 223 H (74-99) mg/dL Plasma Lactic Acid [place] (0.7-2.0) mmol/L Calcium 9.5 (8.4-10.2) mg/dL Magnesium 1.9 (1.6-2.3) mg/dL Total Bilirubin 0.6 (0.2-1.3) mg/dL AST 19 (17-59) U/L ALT 20 (4-49) U/L Alkaline Phosphatase 199 H (38-126) U/L Troponin I (0.000-0.034) ng/mL NT-Pro-B Natriuret Pep pg/mL Total Protein 5.8 L (6.3-8.2) g/dL Albumin 3.8 (3.5-5.0) g/dL Serum Alcohol <10 mg/dL 01/05/22 01/05/22 01/05/22 Range/Units 16:50 16:50 16:50 WBC (3.8-10.6) k/uL RBC (4.30-5.90) m/uL Hgb (13.0-17.5) gm/dL Hct (39.0-53.0) % MCV (80.0-100.0) fL MCH (25.0-35.0) pg MCHC (31.0-37.0) g/dL RDW (11.5-15.5) % Plt Count (150-450) k/uL MPV Neutrophils % % Lymphocytes % % Monocytes % % Eosinophils % % Basophils % % Neutrophils # (1.3-7.7) k/uL Lymphocytes # (1.0-4.8) k/uL Monocytes # (0-1.0) k/uL Eosinophils # (0-0.7) k/uL Basophils # (0-0.2) k/uL PT (9.0-12.0) sec INR (<1.2) D-Dimer (<0.60) mg/L FEU Sodium (137-145) mmol/L Potassium (3.5-5.1) mmol/L Chloride (98-107) mmol/L Carbon Dioxide (22-30) mmol/L Anion Gap mmol/L BUN (9-20) mg/dL Creatinine (0.66-1.25) mg/dL Est GFR (CKD-EPI)AfAm (>60 ml/min/1.73 sqM) Est GFR (CKD-EPI)NonAf (>60 ml/min/1.73 sqM) Glucose (74-99) mg/dL Plasma Lactic Acid Ashwin 1.5 (0.7-2.0) mmol/L Calcium (8.4-10.2) mg/dL Magnesium (1.6-2.3) mg/dL Total Bilirubin (0.2-1.3) mg/dL AST (17-59) U/L ALT (4-49) U/L Alkaline Phosphatase (38-126) U/L Troponin I <0.012 (0.000-0.034) ng/mL NT-Pro-B Natriuret Pep 1560 pg/mL Total Protein (6.3-8.2) g/dL Albumin (3.5-5.0) g/dL Serum Alcohol mg/dL - Radiology Data Radiology results: report reviewed, image reviewed Disposition Clinical Impression: Acute anxiety, Klebsiella pneumonia Disposition: HOME SELF-CARE Condition: Good Instructions (If sedation given, give patient instructions): Generalized Anxiety Disorder (ED) Additional Instructions: Follow-up with your regular physician as directed. Return to the ER immediately if any symptoms worsen, new symptoms arise, or any other problems develop.Take the antibiotics as directed. Refrain from alcohol use. Follow-up with your [facility] doctor. Is patient prescribed a controlled substance at d/c from ED?: Yes When asked, does pt state using other controlled substances?: No If prescribed controlled substance>3 days was MAPS reviewed?: Prescribed <3 Days If opioid is for acute pain is fill amount 7 days or less?: No If Rx opioid, was Start Talking consent form obtained?: No Referrals: Anne Sosa MD [Primary Care Provider] - 01/07/22 8:00 am Time of Disposition: 18:47
[2022-01-05 17:20] LABS: Basophils % (A) 0 %; Eosinophils # (A) 0.2 k/uL (0-0.7); Eosinophils % (A) 1 %; HCT 48.3 % (39.0-53.0); HGB 15.6 gm/dL (13.0-17.5); Lymphocytes # (A) 0.8 k/uL (1.0-4.8); Lymphocytes % (A) 6 %; MCH 30.7 pg (25.0-35.0); MCHC 32.4 g/dL (31.0-37.0); MCV 94.8 fL (80.0-100.0); Mean Platelet Volume 7.3; Monocytes # (A) 0.6 k/uL (0-1.0); Monocytes % (A) 4 %; Neutrophils # (A) 12.9 k/uL (1.3-7.7); Neutrophils % (A) 89 %; Platelet Count 243 k/uL (150-450); RBC 5.09 m/uL (4.30-5.90); RDW 13.3 % (11.5-15.5); WBC 14.5 k/uL (3.8-10.6)
[2022-01-05 17:31] LABS: Prothrombin Time 10.5 sec (9.0-12.0)
[2022-01-05 17:37] LABS: ALT 20 U/L (4-49); AST 19 U/L (17-59); African American GFR (CKD) >90 (>60 ml/min/1.73 sqM); Albumin 3.8 g/dL (3.5-5.0); Alcohol <10 mg/dL; Alkaline Phosphatase 199 U/L (38-126); Anion Gap 8 mmol/L; Blood Urea Nitrogen 24 mg/dL (9-20); Calcium 9.5 mg/dL (8.4-10.2); Carbon Dioxide 36 mmol/L (22-30); Chloride 92 mmol/L (98-107); Glucose 223 mg/dL (74-99); Magnesium 1.9 mg/dL (1.6-2.3); Non-African American GFR(CKD) >90 (>60 ml/min/1.73 sqM); Potassium 4.2 mmol/L (3.5-5.1); Sodium 136 mmol/L (137-145); Total Bilirubin 0.6 mg/dL (0.2-1.3); Total Protein 5.8 g/dL (6.3-8.2)
--- NOTE | 2022-01-05 17:48 | XR ---
EXAMINATION TYPE: XR chest 2V DATE OF EXAM: 01/05/2022 COMPARISON: 01/04/2022 HISTORY: Difficulty breathing TECHNIQUE: Frontal and lateral views of the chest are obtained. FINDINGS: There is no focal air space opacity, pleural effusion, or pneumothorax seen. The cardiac silhouette size is within normal limits. The osseous structures are intact. IMPRESSION: No acute cardiopulmonary process.
[2022-01-05 18:53] LABS: Appearance,Urine Clear (Clear); Bilirubin,Urine Negative (Negative); Blood,Urine Negative (Negative); Color,Urine Light Yellow; Glucose,Urine (UA) 4+ (Negative); Ketones,Urine Negative (Negative); Leukocyte Esterase,Urine Negative (Negative); Nitrite,Urine Negative (Negative); Protein,Urine Negative (Negative); Urobilinogen,Urine <2.0 mg/dL (<2.0)
[2022-01-05 19:03] LABS: Amphetamine Screen,Urine Not Detected (NotDetected); Barbiturate Screen,Urine Not Detected (NotDetected); Benzodiazepines Screen,Urine Detected (NotDetected); Cocaine Screen,Urine Not Detected (NotDetected); Methadone Screen, Urine Not Detected (NotDetected); Opiate Screen,Urine Not Detected (NotDetected); Oxycodone Screen, Urine Not Detected (NotDetected); Phencyclidine Screen,Urine Not Detected (NotDetected); Tricyclic Antidepressant,Urine Not Detected (NotDetected); Urn Cannabinoid Scrn Not Detected (NotDetected)
[2022-01-05 19:35] VITALS: BP 150/87; PULSE 102; RESP 24
== END 2022-01-05 19:35 | disposition home or self-care (01) ==
LOC: EC 16:34
DX: F41.9 Anxiety disorder, unspecified (principal); B96.1 Klebsiella pneumoniae [K. pneumoniae] as the cause of diseases classified elsewhere; J45.909 Unspecified asthma, uncomplicated; E11.9 Type 2 diabetes mellitus without complications; K21.9 Gastro-esophageal reflux disease without esophagitis; I10 Essential (primary) hypertension; F90.9 Attention-deficit hyperactivity disorder, unspecified type; F31.9 Bipolar disorder, unspecified; F17.200 Nicotine dependence, unspecified, uncomplicated; Z79.84 Long term (current) use of oral hypoglycemic drugs; Z79.811 Long term (current) use of aromatase inhibitors; Z79.51 Long term (current) use of inhaled steroids; Z79.52 Long term (current) use of systemic steroids; Z79.899 Other long term (current) drug therapy; L23.0 Allergic contact dermatitis due to metals
CPT/HCPCS: 36415; 94640; 93005; 85379; 83880; 80053; 83605; 83735; 84484; 85025; 85610; 81003; 87040; 80306; 71046; 99284; 96365; 96366; 96375; G0480; J2543; J2060; 80320

== ENCOUNTER 2022-01-07 10:13 | Observation (INO) | payer MEDICARE, OTHER ==
[2022-01-07] MEDS ORDERED: methylPREDNISolone SOD SUCCI 125 MG/2 ML VIAL IV STA (10:16)
[2022-01-07] MEDS ORDERED: SODIUM CHLORIDE 0.9% 1,000 ML IV STA (10:16)
[2022-01-07] MEDS ORDERED: LORazepam 2 MG/ML INJ IV STA (10:16)
[2022-01-07] MEDS ORDERED: IPRATROPIUM-ALBUTEROL 3 ML NEB INHALATION STA (10:16)
[2022-01-07 10:45] LABS: Basophils # (A) 0.1 k/uL (0-0.2); Basophils % (A) 0 %; Eosinophils # (A) 0.2 k/uL (0-0.7); Eosinophils % (A) 1 %; HCT 49.5 % (39.0-53.0); HGB 16.5 gm/dL (13.0-17.5); Lymphocytes # (A) 0.7 k/uL (1.0-4.8); Lymphocytes % (A) 3 %; MCH 31.3 pg (25.0-35.0); MCHC 33.3 g/dL (31.0-37.0); Mean Platelet Volume 7.1; Monocytes # (A) 0.6 k/uL (0-1.0); Monocytes % (A) 3 %; Neutrophils # (A) 18.3 k/uL (1.3-7.7); Neutrophils % (A) 92 %; Platelet Count 261 k/uL (150-450); RBC 5.27 m/uL (4.30-5.90); RDW 13.4 % (11.5-15.5)
[2022-01-07 10:54] LABS: Partial Thromboplastin Time 22.9 sec (22.0-30.0); Prothrombin Time 10.5 sec (9.0-12.0)
[2022-01-07 11:15] LABS: ALT 18 U/L (4-49); AST 15 U/L (17-59); African American GFR (CKD) >90 (>60 ml/min/1.73 sqM); Albumin 3.8 g/dL (3.5-5.0); Alcohol 63 mg/dL; Alkaline Phosphatase 145 U/L (38-126); Anion Gap 9 mmol/L; Blood Urea Nitrogen 21 mg/dL (9-20); Calcium 9.7 mg/dL (8.4-10.2); Carbon Dioxide 35 mmol/L (22-30); Chloride 95 mmol/L (98-107); Glucose 133 mg/dL (74-99); Magnesium 2.1 mg/dL (1.6-2.3); Non-African American GFR(CKD) >90 (>60 ml/min/1.73 sqM); Potassium 4.2 mmol/L (3.5-5.1); Sodium 139 mmol/L (137-145); Total Bilirubin 0.6 mg/dL (0.2-1.3); Total Protein 5.7 g/dL (6.3-8.2)
--- NOTE | 2022-01-07 11:31 | XR ---
EXAMINATION TYPE: XR chest 2V DATE OF EXAM: 01/07/2022 11:24 AM COMPARISON: Chest radiographs from 01/05/2022. TECHNIQUE: XR chest 2V Frontal and lateral views of the chest. CLINICAL INDICATION:Male, 46 years old with history of difficulty breathing; FINDINGS: Lungs/Pleura: Low lung volumes are present. There is no evidence of pleural effusion, focal consolida tion, or pneumothorax. Pulmonary vascularity: Unremarkable. Heart/mediastinum: Cardiomediastinal silhouette is unremarkable. Musculoskeletal: No acute osseous pathology. IMPRESSION: Low lung volumes without radiographic evidence of an acute cardiopulmonary process.
[2022-01-07] MEDS ORDERED: AZITHROMYCIN 500 MG in SODIUM CHLORIDE 0.9% 250 ML IVPB STA (13:28)
[2022-01-07] MEDS ORDERED: PIPERACILLIN-TAZOBACTAM 3.375 GM in SODIUM CHLORIDE 0.9% 100 ML IVPB STA (13:28)
[2022-01-07] MEDS ORDERED: NALOXONE 0.4 MG/ML 1 ML VIAL IV PRN (13:43)
[2022-01-07] MEDS ORDERED: ALBUTEROL NEBULIZED 2.5 MG/3 ML INHALATION PRN (13:46)
[2022-01-07] MEDS ORDERED: hydrOXYzine pamoate 25 MG CAP PO PRN (13:46)
--- NOTE | 2022-01-07 13:50 | ED ---
General Adult HPI - General Chief complaint: Shortness of Breath Stated complaint: SOB, anxiety Time Seen by Provider: 01/07/22 10:15 Source: patient, EMS, RN notes reviewed, old records reviewed Mode of arrival: EMS Limitations: no limitations - History of Present Illness Initial comments: Patient is a 46-year-old male with past medical history remarkable for asthma, COPD, diabetes, hypertension, anxiety who presents over concern for COPD exacerbation, anxiety. Patient was recently intubated last week, discharged home. Was diagnosed with Klebsiella pneumonia. Unknown if patient is taking antibiotics at home. Unknown if patient is taking steroids at home. He states it feels like his anxiety as well as his COPD. I have seen the patient before this is typical for his anxiety episodes. Endorses a mild cough. Denies fevers or chills. Denies nausea, vomiting, abdominal pain, diarrhea. No sick contacts. Presents for further evaluation this time. Denies any chest pain. - Related Data Home Medications Medication Instructions Recorded Confirmed Atorvastatin Calcium [Lipitor] 20 mg PO HS 12/31/20 01/07/22 Empagliflozin [Jardiance] 25 mg PO DAILY 12/31/20 01/07/22 metFORMIN HCL [Glucophage] 1,000 mg PO BID 12/31/20 01/07/22 fluvoxaMINE [Luvox] 50 mg PO DAILY 07/17/21 01/07/22 fluvoxaMINE [Luvox] 100 mg PO HS 07/17/21 01/07/22 Valbenazine Tosylate [Ingrezza 1 cap PO DAILY 12/16/21 01/07/22 40/80 MG Initiation Pack] Cholecalciferol [Vitamin D3 (125 125 mcg PO DAILY 12/28/21 01/07/22 Mcg = 5000 Iu)] Ipratropium-Albuterol Nebulize 3 ml INHALATION RT-QID PRN 12/28/21 01/07/22 [Duoneb 0.5 mg-3 mg/3 ml Soln] Omeprazole 20 mg PO DAILY 12/28/21 01/07/22 QUEtiapine [SEROquel] 100 mg PO BID 01/07/22 01/07/22 Previous Rx's Medication Instructions Recorded Budesonide-Formot 160-4.5 Mcg 2 puff INHALATION RT-BID each 08/03/21 [Symbicort 160-4.5 Mcg Inhaler] Furosemide [Lasix] 40 mg PO DAILY tab 08/03/21 Albuterol Sulfate [Ventolin HFA] 2 puff INHALATION RT-QID PRN #1 12/20/21 each Thiamine [Vitamin B-1] 100 mg PO DAILY #30 tablet 01/04/22 fluPHENAZine [Prolixin 1MG] 3 mg PO DAILY #60 tablet 01/04/22 hydrOXYzine pamoate [Vistaril] 50 mg PO TID PRN #60 cap 01/04/22 Amoxic-Pot Clav 875-125Mg 1 tab PO Q12HR 1 Days #12 tab 01/05/22 [Augmentin 875-125] Allergies Allergy/AdvReac Type Severity Reaction Status Date / Time metals Allergy Rash/Hives, Uncoded 01/07/22 12:14 swelling Review of Systems ROS Statement: Those systems with pertinent positive or pertinent negative responses have been documented in the HPI. Review of Systems: CONST: Denies fever EYES: Denies blurry vision ENT: Denies nasal congestion C/V: Denies Chest pain RESP: Endorses wheezing GI: Denies abdominal pain : Denies dysuria SKIN: Denies rash. MSK: Denies joint pain. NEURO: Denies headache ROS Other: All systems not noted in ROS Statement are negative. Past Medical History Past Medical History: Asthma, COPD, Diabetes Mellitus, GERD/Reflux, Hypertension, Skin Disorder Additional Past Medical History / Comment(s): hx spina bifida, spinal stenosis, pancreatitis. scrotal wound (to start on antibiotics 10/31/15), migraines, uses wheelchair-can ambulate but does fall at times. Tardive Dyskinesia History of Any Multi-Drug Resistant Organisms: None Reported Past Surgical History: Back Surgery Additional Past Surgical History / Comment(s): back surgery- 3 rods, 4 screws Past Anesthesia/Blood Transfusion Reactions: No Reported Reaction Past Psychological History: ADD/ADHD, Anxiety, Bipolar Smoking Status: Current every day smoker Past Alcohol Use History: Abuse Past Drug Use History: None Reported - Past Family History Mother Family Medical History: Cancer Father Family Medical History: Cancer General Exam - General Exam Comments Initial Comments: General: Appears in no acute distress. HEAD: Normal with no signs of head trauma. EYES: PERRLA, EOMI, conjunctiva normal, no discharge. ENT: Hearing grossly intact, normal oropharynx. RESPIRATORY: Mild bilateral end expiratory wheezing. Mild increased work of breathing. No hypoxia. Somewhat rhonchorous breath sounds over the left lung. C/V: Regular rate and rhythm. S1 and S2 auscultated, no edema, peripheral pulses 2+ and intact throughout ABD: Abd is soft, nontender, nondistended EXT: Normal range of motion, no obvious deformity SKIN: No rashes or lesions observed on exposed skin. NEURO: Alert and oriented 4. No focal deficits. Limitations: no limitations Course Vital Signs 01/07/22 01/07/22 01/07/22 10:14 10:36 10:48 Pulse Rate 107 H 93 91 Respiratory 16 Rate Blood Pressure 131/91 O2 Sat by Pulse 96 Oximetry 01/07/22 13:46 Pulse Rate 108 H Respiratory 22 Rate Blood Pressure 168/99 O2 Sat by Pulse 94 L Oximetry Medical Decision Making - Medical Decision Making Based on patient's presentation and physical exam, I'm concerned for cardiac, etiology for his current symptoms. I be having a mild COPD exacerbation. Was diagnosed with pneumonia with unknown continuation of antibiotics at home. Vital signs within acceptable limits. Does appear to be anxious at this time. We will obtain cardiopulmonary labs, infectious, chest x-ray, EKG. He will be given Ativan for anxiety as well as breathing treatments and IV steroids. He was in agreement this plan. EKG showed no signs of acute ischemia. Chest x-ray as interpreted by myself revealed possible left lung consolidation in the mid lung. Laboratory studies are remarkable for leukocytosis of 20 which is increased from 2 days ago. Lactic acid is 3.0 but likely related to his acute alcohol intoxication is with a alcohol level is 63. Troponin is undetectable. BNP is within acceptable limits. Remainder of labs are unremarkable. On reevaluation, I did recommend that we admit the patient to the hospital. He'll be restarted on IV antibiotics. He does have the leukocytosis that is worse from 2 days ago, as well as findings concerning for possible pneumonia in the left lung. He was in agreement this plan. I did examine the patient's susceptibilities from the Klebsiella culture, and he was started on IV Zosyn, azithromycin. Patient was in agreement this plan. I spoke with the admitting physician, Dr. Jones as he was just discharged from the service. Patient was accepted. - Lab Data Result diagrams: 01/07/22 10:22 01/07/22 10:22 Lab Results 01/07/22 01/07/22 01/07/22 Range/Units 10:22 10:22 10:22 WBC 20.0 H (3.8-10.6) k/uL RBC 5.27 (4.30-5.90) m/uL Hgb 16.5 (13.0-17.5) gm/dL Hct 49.5 (39.0-53.0) % MCV 94.0 (80.0-100.0) fL MCH 31.3 (25.0-35.0) pg MCHC 33.3 (31.0-37.0) g/dL RDW 13.4 (11.5-15.5) % Plt Count 261 (150-450) k/uL MPV 7.1 Neutrophils % 92 % Lymphocytes % 3 % Monocytes % 3 % Eosinophils % 1 % Basophils % 0 % Neutrophils # 18.3 H (1.3-7.7) k/uL Lymphocytes # 0.7 L (1.0-4.8) k/uL Monocytes # 0.6 (0-1.0) k/uL Eosinophils # 0.2 (0-0.7) k/uL Basophils # 0.1 (0-0.2) k/uL PT 10.5 (9.0-12.0) sec INR 1.0 (<1.2) APTT 22.9 (22.0-30.0) sec Sodium 139 (137-145) mmol/L Potassium 4.2 (3.5-5.1) mmol/L Chloride 95 L (98-107) mmol/L Carbon Dioxide 35 H (22-30) mmol/L Anion Gap 9 mmol/L BUN 21 H (9-20) mg/dL Creatinine 0.48 L (0.66-1.25) mg/dL Est GFR (CKD-EPI)AfAm >90 (>60 ml/min/1.73 sqM) Est GFR (CKD-EPI)NonAf >90 (>60 ml/min/1.73 sqM) Glucose 133 H (74-99) mg/dL Lactic Ac Sepsis Rflx Plasma Lactic Acid Ashwin (0.7-2.0) mmol/L Calcium 9.7 (8.4-10.2) mg/dL Magnesium 2.1 (1.6-2.3) mg/dL Total Bilirubin 0.6 (0.2-1.3) mg/dL AST 15 L (17-59) U/L ALT 18 (4-49) U/L Alkaline Phosphatase 145 H (38-126) U/L Troponin I (0.000-0.034) ng/mL NT-Pro-B Natriuret Pep pg/mL Total Protein 5.7 L (6.3-8.2) g/dL Albumin 3.8 (3.5-5.0) g/dL Serum Alcohol 63 mg/dL Influenza Type A RNA (Not Detectd) Influenza Type B (PCR) (Not Detectd) 01/07/22 01/07/22 01/07/22 Range/Units 10:22 10:22 10:22 WBC (3.8-10.6) k/uL RBC (4.30-5.90) m/uL Hgb (13.0-17.5) gm/dL Hct (39.0-53.0) % MCV (80.0-100.0) fL MCH (25.0-35.0) pg MCHC (31.0-37.0) g/dL RDW (11.5-15.5) % Plt Count (150-450) k/uL MPV Neutrophils % % Lymphocytes % % Monocytes % % Eosinophils % % Basophils % % Neutrophils # (1.3-7.7) k/uL Lymphocytes # (1.0-4.8) k/uL Monocytes # (0-1.0) k/uL Eosinophils # (0-0.7) k/uL Basophils # (0-0.2) k/uL PT (9.0-12.0) sec INR (<1.2) APTT (22.0-30.0) sec Sodium (137-145) mmol/L Potassium (3.5-5.1) mmol/L Chloride (98-107) mmol/L Carbon Dioxide (22-30) mmol/L Anion Gap mmol/L BUN (9-20) mg/dL Creatinine (0.66-1.25) mg/dL Est GFR (CKD-EPI)AfAm (>60 ml/min/1.73 sqM) Est GFR (CKD-EPI)NonAf (>60 ml/min/1.73 sqM) Glucose (74-99) mg/dL Lactic Ac Sepsis Rflx Plasma Lactic Acid Ashwin 3.0 H* (0.7-2.0) mmol/L Calcium (8.4-10.2) mg/dL Magnesium (1.6-2.3) mg/dL Total Bilirubin (0.2-1.3) mg/dL AST (17-59) U/L ALT (4-49) U/L Alkaline Phosphatase (38-126) U/L Troponin I <0.012 (0.000-0.034) ng/mL NT-Pro-B Natriuret Pep 306 pg/mL Total Protein (6.3-8.2) g/dL Albumin (3.5-5.0) g/dL Serum Alcohol mg/dL Influenza Type A RNA (Not Detectd) Influenza Type B (PCR) (Not Detectd) 01/07/22 01/07/22 Range/Units 10:22 11:10 WBC (3.8-10.6) k/uL RBC (4.30-5.90) m/uL Hgb (13.0-17.5) gm/dL Hct (39.0-53.0) % MCV (80.0-100.0) fL MCH (25.0-35.0) pg MCHC (31.0-37.0) g/dL RDW (11.5-15.5) % Plt Count (150-450) k/uL MPV Neutrophils % % Lymphocytes % % Monocytes % % Eosinophils % % Basophils % % Neutrophils # (1.3-7.7) k/uL Lymphocytes # (1.0-4.8) k/uL Monocytes # (0-1.0) k/uL Eosinophils # (0-0.7) k/uL Basophils # (0-0.2) k/uL PT (9.0-12.0) sec INR (<1.2) APTT (22.0-30.0) sec Sodium (137-145) mmol/L Potassium (3.5-5.1) mmol/L Chloride (98-107) mmol/L Carbon Dioxide (22-30) mmol/L Anion Gap mmol/L BUN (9-20) mg/dL Creatinine (0.66-1.25) mg/dL Est GFR (CKD-EPI)AfAm (>60 ml/min/1.73 sqM) Est GFR (CKD-EPI)NonAf (>60 ml/min/1.73 sqM) Glucose (74-99) mg/dL Lactic Ac Sepsis Rflx Y Plasma Lactic Acid Ashwin (0.7-2.0) mmol/L Calcium (8.4-10.2) mg/dL Magnesium (1.6-2.3) mg/dL Total Bilirubin (0.2-1.3) mg/dL AST (17-59) U/L ALT (4-49) U/L Alkaline Phosphatase (38-126) U/L Troponin I (0.000-0.034) ng/mL NT-Pro-B Natriuret Pep pg/mL Total Protein (6.3-8.2) g/dL Albumin (3.5-5.0) g/dL Serum Alcohol mg/dL Influenza Type A RNA Not Detected (Not Detectd) Influenza Type B (PCR) Not Detected (Not Detectd) - EKG Data -: EKG Interpreted by Me EKG Comments: 12-lead Electrocardiogram Interpretation Note EKG was reviewed and interpreted by myself. 12-lead ECG performed at 1026 is interpreted by me as revealing normal sinus rhythm at a rate of 96 beats per minute. Berclair is normal. OR interval is 130 ms, QRS duration is 86 ms, QTc is 409 ms.. There were no ST or T wave abnormalities to suggest myocardial ischemia or injury. R wave progression across the precordium was satisfactory. By my interpretation this EKG is non-diagnostic for acute ischemia. Disposition Clinical Impression: Pneumonia, COPD exacerbation, Anxiety Disposition: ADMITTED IP TO THIS HOSP Condition: Stable Is patient prescribed a controlled substance at d/c from ED?: No Time of Disposition: 13:30
[2022-01-07] MEDS: HEPARIN SODIUM,PORCINE/PF 5,000 UNIT/0.5 ML SYRINGE SQ SCH (16:35)
[2022-01-07] MEDS: LORazepam 0.5 MG TAB PO PRN (16:35)
[2022-01-07] MEDS: metFORMIN 500 MG TAB PO SCH (20:04)
[2022-01-07] MEDS: ATORVASTATIN 20 MG TAB PO SCH (20:04)
[2022-01-07] MEDS: SYMBICORT 160-4.5 MCG INHALER INHALATION SCH (20:08)
[2022-01-07] MEDS: QUEtiapine 100 MG TAB PO SCH (20:08)
[2022-01-08] MEDS: PIPERACILLIN-TAZOBACTAM 3.375 GM in SODIUM CHLORIDE 0.9% 100 ML IVPB SCH ×3 (00:43→16:48)
[2022-01-08] MEDS: HEPARIN SODIUM,PORCINE/PF 5,000 UNIT/0.5 ML SYRINGE SQ SCH ×3 (00:43→16:49)
[2022-01-08] MEDS: PANTOPRAZOLE 40 MG TABLET PO SCH (06:37)
--- NOTE | 2022-01-08 07:55 | XR ---
EXAMINATION TYPE: XR chest 2V DATE OF EXAM: 01/08/2022 COMPARISON: 01/07/2022 TECHNIQUE: PA and lateral views submitted. HISTORY: Cough FINDINGS: The lungs are clear and there is no pneumothorax, pleural effusion, or focal pneumonia. Hypertrophi c and degenerative change of the spine. Coarsened interstitium. Arthropathy shoulders. IMPRESSION: 1. Coarsened interstitium can be associated with bronchitis or mild interstitial pneumonitis correlat e clinically.
[2022-01-08] MEDS: QUEtiapine 100 MG TAB PO SCH ×2 (08:14→20:19)
[2022-01-08] MEDS: DAPAGLIFLOZIN PROPANEDIOL 10 MG TABLET PO SCH (08:14)
[2022-01-08] MEDS: metFORMIN 500 MG TAB PO SCH ×2 (08:15→20:20)
[2022-01-08] MEDS: FUROSEMIDE 40 MG TAB PO SCH (08:15)
[2022-01-08] MEDS: IPRATROPIUM-ALBUTEROL 3 ML NEB INHALATION PRN ×2 (08:35→15:46)
[2022-01-08] MEDS: SYMBICORT 160-4.5 MCG INHALER INHALATION SCH ×2 (08:35→19:49)
[2022-01-08] MEDS: LORazepam 0.5 MG TAB PO PRN (08:50)
[2022-01-08 08:52] LABS: Basophils # (A) 0.02 X 10*3/uL (0.00-0.10); Basophils % (A) 0.1 %; Eosinophils # (A) 0.01 X 10*3/uL (0.04-0.35); Eosinophils % (A) 0.1 %; HCT 43.4 % (39.6-50.0); HGB 14.2 g/dL (13.0-17.0); Immature Grans, Automated 0.5 %; Lymphocytes # (A) 0.88 X 10*3/uL (0.90-5.00); Lymphocytes % (A) 5.8 %; MCHC 32.7 g/dL (32.0-37.0); MCV 91.8 fL (80.0-97.0); Mean Platelet Volume 9.1 fL (9.5-12.2); Monocytes # (A) 0.94 X 10*3/uL (0.20-1.00); Monocytes % (A) 6.2 %; NRBC Per 100 WBC 0 /100 WBCS (0.0-0.0); Neutrophils # (A) 13.13 X 10*3/uL (1.80-7.70); Neutrophils % (A) 87.3 %; Platelet Count 276 X 10*3/uL (140-440); RBC 4.73 X 10*6/uL (4.40-5.60); RDW 13.7 % (11.5-14.5); WBC 15.06 X 10*3/uL (4.50-10.00)
[2022-01-08] MEDS ORDERED: methylPREDNISolone SOD SUCCI 40 MG/ML 1 ML VIAL IV SCH (09:00)
[2022-01-08 09:23] LABS: African American GFR (CKD) 148.5 (60.0-200.0); Anion Gap 6.1 mmol/L (10.00-18.00); BUN/Creat Ratio 35.4 Ratio (12.00-20.00); Blood Urea Nitrogen 17.7 mg/dL (9.0-27.0); Calcium 9.2 mg/dL (8.7-10.3); Carbon Dioxide 32.9 mmol/L (20.0-27.5); Non-African American GFR(CKD) 128.1 (60.0-200.0); Potassium 4.7 mmol/L (3.5-5.5)
[2022-01-08] MEDS: AZITHROMYCIN 500 MG in SODIUM CHLORIDE 0.9% 250 ML IVPB SCH (12:40)
--- NOTE | 2022-01-08 13:06 | P.HPIM ---
History of Present Illness H&P Date: 01/07/22 Chief Complaint: Shortness of breath Patient is a 46-year-old male with a known history of asthma/COPD, alcohol abuse disorder, schizoaffective disorder, hypertension and severe anxiety presents to ER with complaints of shortness of breath and anxiety. Patient was admitted to hospital recently requiring intubation. He left AMA on 01/04/2022., Without taking his prescription. Patient says he was having cough. No sputum production. No nausea vomiting or abdominal pain or diarrhea. No abdominal pain. No chest pain. Denied any dizziness or lightheadedness. Patient is requesting Ativan. Chest x-ray showed low lung volumes without radiographic evidence of acute c ardiopulmonary process. EKG showed sinus tachycardia Laboratory data showed WBC 20.0 hemoglobin 16.5 and platelets 261 Sodium 139 potassium 4.2 chloride 95 bicarb is 35 BUN 21 and creatinine 0.48, lactic acid 3.0. ProBNP 306 Serum alcohol level is 63 Influenza A and B and not detected. Review of Systems Constitutional: Patient denies any fever or chills . No generalized weakness or weight loss. Abdomen: Patient denied nausea vomiting and diarrhea and abdominal pain. Cardiovascular: Patient denies any chest pain or short of breath no palpitatio ns. Respiratory: Cough without sputum production and shortness of breath Neurologic: Patient denied any numbness or tingling headache. Musculoskeletal: Patient denies any complaints of joint swelling or deformity. Skin: Negative Psychiatric: Anxiety. Endocrine: No heat or cold intolerance. No recent weight gain. Genitourinary: No dysuria or hematuria. All other 14 point ROS negative except the above Past Medical History Past Medical History: Asthma, COPD, Diabetes Mellitus, GERD/Reflux, Hypertension, Skin Disorder Additional Past Medical History / Comment(s): hx spina bifida, spinal stenosis, pancreatitis. scrotal wound (to start on antibiotics 10/31/15), migraines, uses wheelchair-can ambulate but does fall at times. Tardive Dyskinesia History of Any Multi-Drug Resistant Organisms: None Reported Past Surgical History: Back Surgery Additional Past Surgical History / Comment(s): back surgery- 3 rods, 4 screws Past Anesthesia/Blood Transfusion Reactions: No Reported Reaction Past Psychological History: ADD/ADHD, Anxiety, Bipolar Smoking Status: Current every day smoker Past Alcohol Use History: Abuse Past Drug Use History: None Reported - Past Family History Mother Family Medical History: Cancer Father Family Medical History: Cancer Medications and Allergies Home Medications Medication Instructions Recorded Confirmed Type Atorvastatin Calcium [Lipitor] 20 mg PO HS 12/31/20 01/07/22 History Empagliflozin [Jardiance] 25 mg PO DAILY 12/31/20 01/07/22 History metFORMIN HCL [Glucophage] 1,000 mg PO BID 12/31/20 01/07/22 History fluvoxaMINE [Luvox] 50 mg PO DAILY 07/17/21 01/07/22 History fluvoxaMINE [Luvox] 100 mg PO HS 07/17/21 01/07/22 History Budesonide-Formot 160-4.5 Mcg 2 puff INHALATION RT-BID each 08/03/21 01/07/22 Rx [Symbicort 160-4.5 Mcg Inhaler] Furosemide [Lasix] 40 mg PO DAILY tab 08/03/21 01/07/22 Rx Valbenazine Tosylate [Ingrezza 1 cap PO DAILY 12/16/21 01/07/22 History 40/80 MG Initiation Pack] Albuterol Sulfate [Ventolin HFA] 2 puff INHALATION RT-QID PRN #1 12/20/21 01/07/22 Rx each Cholecalciferol [Vitamin D3 (125 125 mcg PO DAILY 12/28/21 01/07/22 History Mcg = 5000 Iu)] Ipratropium-Albuterol Nebulize 3 ml INHALATION RT-QID PRN 12/28/21 01/07/22 History [Duoneb 0.5 mg-3 mg/3 ml Soln] Omeprazole 20 mg PO DAILY 12/28/21 01/07/22 History Thiamine [Vitamin B-1] 100 mg PO DAILY #30 tablet 01/04/22 01/07/22 Rx fluPHENAZine [Prolixin 1MG] 3 mg PO DAILY #60 tablet 01/04/22 01/07/22 Rx hydrOXYzine pamoate [Vistaril] 50 mg PO TID PRN #60 cap 01/04/22 01/07/22 Rx Amoxic-Pot Clav 875-125Mg 1 tab PO Q12HR 1 Days #12 tab 01/05/22 01/07/22 Rx [Augmentin 875-125] QUEtiapine [SEROquel] 100 mg PO BID 01/07/22 01/07/22 History Allergies Allergy/AdvReac Type Severity Reaction Status Date / Time metals Allergy Rash/Hives, Uncoded 01/07/22 12:14 swelling Physical Exam Vitals: Vital Signs Temp Pulse Pulse Resp BP BP Pulse Ox 01/07/22 20:21 90 01/07/22 20:13 86 01/07/22 15:00 98.1 F 71 20 143/76 95 01/07/22 14:00 18 01/07/22 13:46 108 H 22 168/99 94 L 01/07/22 10:48 91 01/07/22 10:36 93 01/07/22 10:14 107 H 16 131/91 96 Intake and Output 01/07/22 01/07/22 01/07/22 06:59 14:59 22:59 Intake Total 120 Balance 120 Intake: Oral 120 Other: # Voids 0 2 Weight 77.564 kg PHYSICAL EXAMINATION: Patient is lying in the bed comfortably, no acute distress, awake alert and oriented.. Anxious. HEENT: Normocephalic. Neck is supple. Pupils reactive. Nostrils clear. Oral cavity is moist. Neck reveals no JVD, carotid bruits, or thyromegaly. CHEST EXAMINATION: Trachea is central. Symmetrical expansion. Bibasilar diminished sounds.. CARDIAC: Normal S1, S2 with no gallops. No murmurs ABDOMEN: Soft. Bowel sounds normal. No organomegaly. No abdominal bruits. Extremities: reveal no edema. No clubbing or cyanosis Neurologically awake, alert, oriented x3 with well-coordinated movements. No focal deficits noted Skin: No rash or skin lesions. Psychiatric: Coperative. Nonsuicidal Musculoskeletal: No joint swelling or deformity. Normal range of motion. Results CBC & Chem 7: 01/08/22 05:54 01/08/22 05:54 Labs: Abnormal Lab Results - Last 24 Hours (Table) 01/07/22 01/07/22 01/07/22 Range/Units 10: 10: 10: WBC 20.0 H (3.8-10.6) k/uL Neutrophils # 18.3 H (1.3-7.7) k/uL Lymphocytes # 0.7 L (1.0-4.8) k/uL Chloride 95 L (98-107) mmol/L Carbon Dioxide 35 H (22-30) mmol/L BUN 21 H (9-20) mg/dL Creatinine 0.48 L (0.66-1.25) mg/dL Glucose 133 H (74-99) mg/dL Plasma Lactic Acid Ashwin 3.0 H* (0.7-2.0) mmol/L AST 15 L (17-59) U/L Alkaline Phosphatase 145 H (38-126) U/L Total Protein 5.7 L (6.3-8.2) g/dL Thrombosis Risk Factor Assmnt - DVT/VTE Prophylaxis DVT/VTE Prophylaxis: Pharmacologic Prophylaxis ordered Assessment and Plan Assessment: Interstitial pneumonia with recent sputum cultures growing Klebsiella pneumonia. Patient has not been taking antibiotics prescribed during recent admission. Lactic acidosis 3.0 Acute alcohol intoxication on admission Recent admission with asthma exacerbation requiring mechanical ventilator. Diabetes type 2 [id number] Hypertension Ongoing nicotine addiction Alcohol abuse disorder History of ADD/ADHD, Anxiety, Bipolar History of tardive dyskinesia Plan: Patient will be continued on antibiotics the form of Zosyn. Continue with DuoNeb's and follow-up respiratory status closely. Current home medications and psychiatric medications. Follow-up chest x-ray tomorrow. Prognosis is guarded. Continue to monitor for alcohol withdrawal symptoms Time with Patient: Greater than 30
[2022-01-08] MEDS: ATORVASTATIN 20 MG TAB PO SCH (20:19)
[2022-01-09] MEDS: PIPERACILLIN-TAZOBACTAM 3.375 GM in SODIUM CHLORIDE 0.9% 100 ML IVPB SCH ×2 (00:01→07:58)
[2022-01-09 04:20] VITALS: RESP 18
[2022-01-09] MEDS: IPRATROPIUM-ALBUTEROL 3 ML NEB INHALATION PRN (07:02)
[2022-01-09] MEDS: SYMBICORT 160-4.5 MCG INHALER INHALATION SCH (07:03)
[2022-01-09] MEDS: PANTOPRAZOLE 40 MG TABLET PO SCH (07:07)
[2022-01-09] MEDS: AZITHROMYCIN 500 MG in SODIUM CHLORIDE 0.9% 250 ML IVPB SCH (07:56)
[2022-01-09] MEDS: DAPAGLIFLOZIN PROPANEDIOL 10 MG TABLET PO SCH (07:58)
[2022-01-09] MEDS: metFORMIN 500 MG TAB PO SCH (07:58)
[2022-01-09] MEDS: HEPARIN SODIUM,PORCINE/PF 5,000 UNIT/0.5 ML SYRINGE SQ SCH ×2 (07:59)
[2022-01-09] MEDS: FUROSEMIDE 40 MG TAB PO SCH (07:59)
[2022-01-09] MEDS: QUEtiapine 100 MG TAB PO SCH (07:59)
[2022-01-09 08:12] VITALS: BP 118/57; PULSE 70; TEMP 97.8
--- NOTE | 2022-01-09 10:00 | P.PN ---
Subjective Progress Note Date: 01/08/22 Patient is a 46-year-old male with a known history of asthma/COPD, alcohol abuse disorder, schizoaffective disorder, hypertension and severe anxiety presents to ER with complaints of shortness of breath and anxiety. Patient was admitted to hospital recently requiring intubation. He left AMA on 01/04/2022., Without taking his prescription. Patient says he was having cough. No sputum production. No nausea vomiting or abdominal pain or diarrhea. No abdominal pain. No chest pain. Denied any dizziness or lightheadedness. Patient is requesting Ativan. Chest x-ray showed low lung volumes without radiographic evidence of acute cardiopulmonary process. EKG showed sinus tachycardia Laboratory data showed WBC 20.0 hemoglobin 16.5 and platelets 261 Sodium 139 potassium 4.2 chloride 95 bicarb is 35 BUN 21 and creatinine 0.48, lactic acid 3.0. ProBNP 306 Serum alcohol level is 63 Influenza A and B and not detected. 01/08/2022 Patient is currently resting in bed. Awake alert and oriented. No complaints of chest pain or worsening shortness of breath. Patient has been afebrile. No nausea vomiting or abdominal pain or diarrhea. Still having very shaky and generalized shakiness. Cough without sputum production.. Repeat chest x-ray this morning showed coarsened interstitium can be associated with bronchitis or mild interstitial pneumonitis. Correlate clinically. Patient is being covered on Zosyn. Also on DuoNeb's. Laboratory data showed WBC 15.0 hemoglobin 14.2 and platelets 276 Sodium 142 potassium 4.7 chloride 103 bicarb is 32.9 BUN 17.7 and creatinine 0.5 Blood culture showed gram-positive cocci turned out to be staph epidermidis. Current medications reviewed. Objective - Vital Signs Vital signs: Vital Signs Temp 97.9 F 01/08/22 14:25 Pulse 92 01/08/22 15:57 Resp 17 01/08/22 14:25 BP 112/65 01/08/22 14:25 Pulse Ox 97 01/08/22 14:25 FiO2 Intake & Output 01/08/22 01/08/22 01/09/22 06:59 18:59 06:59 Intake Total 842 Output Total 525 1800 Balance -525 -709 Intake: Oral 842 Output: Urine 525 1800 Other: # Voids 1 - Exam PHYSICAL EXAMINATION: Patient is lying in the bed comfortably, no acute distress, awake alert and oriented.. Anxious. HEENT: Normocephalic. Neck is supple. Pupils reactive. Nostrils clear. Oral cavity is moist. Neck reveals no JVD, carotid bruits, or thyromegaly. CHEST EXAMINATION: Trachea is central. Symmetrical expansion. Bibasilar diminished sounds.. CARDIAC: Normal S1, S2 with no gallops. No murmurs ABDOMEN: Soft. Bowel sounds normal. No organomegaly. No abdominal bruits. Extremities: reveal no edema. No clubbing or cyanosis Neurologically awake, alert, oriented x3 with well-coordinated movements. No focal deficits noted Skin: No rash or skin lesions. Psychiatric: Coperative. Nonsuicidal Musculoskeletal: No joint swelling or deformity. Normal range of motion. - Labs CBC & Chem 7: 01/08/22 05:54 01/08/22 05:54 Labs: Abnormal Lab Results - Last 24 Hours (Table) 01/08/22 01/08/22 Range/Units 05:54 05:54 WBC 15.06 H (4.50-10.00) X 10*3/uL MPV 9.1 L (9.5-12.2) fL Immature Gran # 0.08 H (0.00-0.04) X 10*3/uL Neutrophils # 13.13 H (1.80-7.70) X 10*3/uL Lymphocytes # 0.88 L (0.90-5.00) X 10*3/uL Eosinophils # 0.01 L (0.04-0.35) X 10*3/uL Carbon Dioxide 32.9 H (20.0-27.5) mmol/L Anion Gap 6.10 L (10.00-18.00) mmol/L Creatinine 0.5 L (0.6-1.5) mg/dL BUN/Creatinine Ratio 35.40 H (12.00-20.00) Ratio Glucose 162 H (70-110) mg/dL Microbiology - Last 24 Hours (Table) 01/07/22 13:45 Blood Culture Gram Stain - Preliminary Blood Blood Culture - Preliminary Staphylococcus epidermidis 01/07/22 13:30 Blood Culture - Preliminary Blood No Growth after 24 hours 01/07/22 13:45 Blood Culture - Final Blood Assessment and Plan Assessment: Interstitial pneumonia with recent sputum cultures growing Klebsiella pneumonia. Patient has not been taking antibiotics prescribed during recent admission. Lactic acidosis 3.0. Improved. Acute alcohol intoxication on admission Acute alcohol withdrawal symptoms Recent admission with asthma exacerbation requiring mechanical ventilator. Diabetes type 2 [id number] Hypertension Ongoing nicotine addiction Alcohol abuse disorder History of ADD/ADHD, Anxiety, Bipolar History of tardive dyskinesia Plan: Patient will be continued on antibiotics the form of Zosyn. WBC trending down. Continue with DuoNeb's and follow-up respiratory status closely. Current home medications and psychiatric medications. Follow-up chest x-ray tomorrow. Prognosis is guarded. Continue to monitor for alcohol withdrawal symptoms. Patient is on Librium 10 mg 3 times a day. Will discuss with his guardian regarding discharge disposition.. Time with Patient: Greater than 30
[2022-01-09 11:31] LABS: African American GFR (CKD) 129.3 (60.0-200.0); Anion Gap 5.2 mmol/L (10.00-18.00); BUN/Creat Ratio 24.71 Ratio (12.00-20.00); Basophils # (A) 0.02 X 10*3/uL (0.00-0.10); Basophils % (A) 0.2 %; Blood Urea Nitrogen 17.3 mg/dL (9.0-27.0); Carbon Dioxide 36.8 mmol/L (20.0-27.5); Eosinophils # (A) 0.04 X 10*3/uL (0.04-0.35); Eosinophils % (A) 0.3 %; HCT 42.6 % (39.6-50.0); HGB 13.2 g/dL (13.0-17.0); Immature Grans, Automated 0.7 %; Lymphocytes # (A) 1.76 X 10*3/uL (0.90-5.00); MCH 29.9 pg (27.0-32.0); MCV 96.4 fL (80.0-97.0); Mean Platelet Volume 9.3 fL (9.5-12.2); Monocytes # (A) 1.07 X 10*3/uL (0.20-1.00); Monocytes % (A) 9.1 %; NRBC Per 100 WBC 0 /100 WBCS (0.0-0.0); Neutrophils # (A) 8.79 X 10*3/uL (1.80-7.70); Neutrophils % (A) 74.7 %; Non-African American GFR(CKD) 111.6 (60.0-200.0); Platelet Count 272 X 10*3/uL (140-440); RBC 4.42 X 10*6/uL (4.40-5.60); RDW 13.9 % (11.5-14.5); WBC 11.76 X 10*3/uL (4.50-10.00)
== END 2022-01-09 09:10 | disposition left against medical advice (07) ==
LOC: EC 10:13 → 6NMEDSUR 13:43
PROVIDERS: ADMIT Internal Medicine; ATTEND Internal Medicine
DX: J15.0 Pneumonia due to Klebsiella pneumoniae (principal); E87.20 Acidosis, unspecified; F10.229 Alcohol dependence with intoxication, unspecified; F41.9 Anxiety disorder, unspecified; E11.9 Type 2 diabetes mellitus without complications; I10 Essential (primary) hypertension; J44.9 Chronic obstructive pulmonary disease, unspecified; K21.9 Gastro-esophageal reflux disease without esophagitis; G43.909 Migraine, unspecified, not intractable, without status migrainosus; Q05.9 Spina bifida, unspecified; F90.9 Attention-deficit hyperactivity disorder, unspecified type; F31.9 Bipolar disorder, unspecified; F17.200 Nicotine dependence, unspecified, uncomplicated; Z79.51 Long term (current) use of inhaled steroids; Z79.84 Long term (current) use of oral hypoglycemic drugs; Z79.899 Other long term (current) drug therapy; Y90.3 Blood alcohol level of 60-79 mg/100 ml
CPT/HCPCS: 96366 ×3; 96367; 96372 ×3; 96376; 96365; 96375; 99285; 36415; 94640 ×5; 93005; 83880; 80053; 80048 ×2; 83605; 83735; 84484; 85025 ×3; 85610; 85730; 87040; 87070; 87205; 87502; 71046 ×2; G0378 ×3; G0480; J2543 ×3; J2060; J2920; J2930; J0456 ×3; J1644 ×3; 80320

== ENCOUNTER 2022-01-16 08:55 | Emergency (ER) | payer MEDICARE, OTHER ==
[2022-01-16] MEDS ORDERED: LORazepam 2 MG/ML INJ IV STA (09:03)
[2022-01-16 09:10] VITALS: RESP 16; TEMP 97.2
[2022-01-16 09:18] VITALS: PULSE 76
[2022-01-16 09:20] VITALS: BP 148/82
--- NOTE | 2022-01-16 09:49 | ED ---
General Adult HPI - General Chief complaint: Anxiety Stated complaint: anxiety Time Seen by Provider: 01/16/22 09:00 Source: patient, EMS, RN notes reviewed, old records reviewed Mode of arrival: EMS Limitations: altered mental status - History of Present Illness Initial comments: This is a 46-year-old male presents emergency room stating he's having a panic attack. Patient states she supposed be taking antianxiety medication but he doesn't know what it is. Patient states he has a cardiogram but he does know her name. Patient states this is been having quite a bit recently. Patient denies any fever chills or cough per patient denies headache patient denies numbness weakness. Patient denies shortness of breath difficult breathing or chest pain. Patient denies any palpitations. Patient is abdominal pain patient denies nausea vomiting diarrhea per patient denies any other complaint. Patient denies any recent trauma. - Related Data Home Medications Medication Instructions Recorded Confirmed Atorvastatin Calcium [Lipitor] 20 mg PO HS 12/31/20 01/07/22 Empagliflozin [Jardiance] 25 mg PO DAILY 12/31/20 01/07/22 metFORMIN HCL [Glucophage] 1,000 mg PO BID 12/31/20 01/07/22 fluvoxaMINE [Luvox] 50 mg PO DAILY 07/17/21 01/07/22 fluvoxaMINE [Luvox] 100 mg PO HS 07/17/21 01/07/22 Valbenazine Tosylate [Ingrezza 1 cap PO DAILY 12/16/21 01/07/22 40/80 MG Initiation Pack] Cholecalciferol [Vitamin D3 (125 125 mcg PO DAILY 12/28/21 01/07/22 Mcg = 5000 Iu)] Ipratropium-Albuterol Nebulize 3 ml INHALATION RT-QID PRN 12/28/21 01/07/22 [Duoneb 0.5 mg-3 mg/3 ml Soln] Omeprazole 20 mg PO DAILY 12/28/21 01/07/22 QUEtiapine [SEROquel] 100 mg PO BID 01/07/22 01/07/22 Previous Rx's Medication Instructions Recorded Budesonide-Formot 160-4.5 Mcg 2 puff INHALATION RT-BID each 08/03/21 [Symbicort 160-4.5 Mcg Inhaler] Furosemide [Lasix] 40 mg PO DAILY tab 08/03/21 Albuterol Sulfate [Ventolin HFA] 2 puff INHALATION RT-QID PRN #1 12/20/21 each Thiamine [Vitamin B-1] 100 mg PO DAILY #30 tablet 01/04/22 fluPHENAZine [Prolixin] 3 mg PO DAILY #60 tablet 01/04/22 hydrOXYzine pamoate [Vistaril] 50 mg PO TID PRN #60 cap 01/04/22 Amoxic-Pot Clav 875-125Mg 1 tab PO Q12HR 1 Days #12 tab 01/05/22 [Augmentin 875-125] Allergies Allergy/AdvReac Type Severity Reaction Status Date / Time metals Allergy Rash/Hives, Uncoded 01/16/22 13:19 swelling Review of Systems ROS Statement: Those systems with pertinent positive or pertinent negative responses have been documented in the HPI. ROS Other: All systems not noted in ROS Statement are negative. Past Medical History Past Medical History: Asthma, COPD, Diabetes Mellitus, GERD/Reflux, Hypertension, Skin Disorder Additional Past Medical History / Comment(s): hx spina bifida, spinal stenosis, pancreatitis. scrotal wound (to start on antibiotics 10/31/15), migraines, uses wheelchair-can ambulate but does fall at times. Tardive Dyskinesia History of Any Multi-Drug Resistant Organisms: None Reported Past Surgical History: Back Surgery Additional Past Surgical History / Comment(s): back surgery- 3 rods, 4 screws Past Anesthesia/Blood Transfusion Reactions: No Reported Reaction Past Psychological History: ADD/ADHD, Anxiety, Bipolar Smoking Status: Current every day smoker Past Alcohol Use History: Abuse Past Drug Use History: None Reported - Past Family History Mother Family Medical History: Cancer Father Family Medical History: Cancer General Exam - General Exam Comments Initial Comments: GENERAL: Patient is well-developed and well-nourished. Patient is nontoxic and well- hydrated and is in mild distress. ENT: Neck is soft and supple. No significant lymphadenopathy is noted. Oropharynx is clear. Moist mucous membranes. Neck has full range of motion without eliciting any pain. EYES: The sclera were anicteric and conjunctiva were pink and moist. Extraocular movements were intact and pupils were equal round and reactive to light. Eyelids were unremarkable. PULMONARY: Unlabored respirations. Good breath sounds bilaterally. No audible rales rhonchi or wheezing was noted. CARDIOVASCULAR: There is a regular rate and rhythm without any murmurs gallops or rubs. ABDOMEN: Soft and nontender with normal bowel sounds. SKIN: Skin is clear with no lesions or rashes and otherwise unremarkable. NEUROLOGIC: Patient is alert and oriented x3. Cranial nerves II through XII are grossly intact. Motor and sensory are also intact. Normal speech, volume and content. Symmetrical smile. MUSCULOSKELETAL: Normal extremities with adequate strength and full range of motion. LYMPHATICS: No significant lymphadenopathy is noted PSYCHIATRIC: Patient is very anxious and appears to be having a panic attack. Limitations: altered mental status Course Vital Signs 01/16/22 01/16/22 01/16/22 08:57 09:16 09:19 Temperature 97.2 F L Pulse Rate 69 76 Respiratory 16 16 Rate Blood Pressure 148/82 O2 Sat by Pulse 97 99 Oximetry Medical Decision Making - Medical Decision Making Patient received IV Ativan 1 mg. Patient calmed down considerably. Patient feels good enough to go home at this time. Disposition Clinical Impression: Anxiety, Panic attack Disposition: HOME SELF-CARE Instructions (If sedation given, give patient instructions): Generalized Anxiety Disorder (ED) Is patient prescribed a controlled substance at d/c from ED?: No Referrals: Anne Sosa MD [Primary Care Provider] - 1-2 days Time of Disposition: 09:48
== END 2022-01-16 10:00 | disposition home or self-care (01) ==
LOC: EC 08:55
DX: F41.0 Panic disorder [episodic paroxysmal anxiety] (principal); J44.9 Chronic obstructive pulmonary disease, unspecified; E11.9 Type 2 diabetes mellitus without complications; K21.9 Gastro-esophageal reflux disease without esophagitis; I10 Essential (primary) hypertension; F17.200 Nicotine dependence, unspecified, uncomplicated; Z91.048 Other nonmedicinal substance allergy status; Z79.51 Long term (current) use of inhaled steroids; Z79.84 Long term (current) use of oral hypoglycemic drugs; Z79.899 Other long term (current) drug therapy
CPT/HCPCS: 99283; 96374; J2060

== ENCOUNTER 2022-01-16 13:06 | Emergency (ER) | payer MEDICARE, OTHER ==
[2022-01-16 13:20] VITALS: PULSE 66; RESP 24; TEMP 97.5
[2022-01-16 13:22] VITALS: BP 140/61
[2022-01-16] MEDS ORDERED: LORazepam 1 MG TAB PO STA (13:48)
--- NOTE | 2022-01-16 13:56 | ED ---
General Adult HPI - General Chief complaint: Anxiety Stated complaint: anxiety Time Seen by Provider: 01/16/22 13:45 Source: patient, EMS, RN notes reviewed, old records reviewed Mode of arrival: EMS - History of Present Illness Initial comments: This is a 38-year-old male who comes in stating he's having a panic attack. Patient states he was here earlier today and was seen given Ativan he didn't really help. Patient states went back home he started having a panic attacks difficulty and was brought back and per patient denies any difficulty breathing first breath patient denies any chest pain. Patient denies any fever chills per patient's abdominal pain patient denies nausea vomiting diarrhea. - Related Data Home Medications Medication Instructions Recorded Confirmed Atorvastatin Calcium [Lipitor] 20 mg PO HS 12/31/20 01/07/22 Empagliflozin [Jardiance] 25 mg PO DAILY 12/31/20 01/07/22 metFORMIN HCL [Glucophage] 1,000 mg PO BID 12/31/20 01/07/22 fluvoxaMINE [Luvox] 50 mg PO DAILY 07/17/21 01/07/22 fluvoxaMINE [Luvox] 100 mg PO HS 07/17/21 01/07/22 Valbenazine Tosylate [Ingrezza 1 cap PO DAILY 12/16/21 01/07/22 40/80 MG Initiation Pack] Cholecalciferol [Vitamin D3 (125 125 mcg PO DAILY 12/28/21 01/07/22 Mcg = 5000 Iu)] Ipratropium-Albuterol Nebulize 3 ml INHALATION RT-QID PRN 12/28/21 01/07/22 [Duoneb 0.5 mg-3 mg/3 ml Soln] Omeprazole 20 mg PO DAILY 12/28/21 01/07/22 QUEtiapine [SEROquel] 100 mg PO BID 01/07/22 01/07/22 Previous Rx's Medication Instructions Recorded Budesonide-Formot 160-4.5 Mcg 2 puff INHALATION RT-BID each 08/03/21 [Symbicort 160-4.5 Mcg Inhaler] Furosemide [Lasix] 40 mg PO DAILY tab 08/03/21 Albuterol Sulfate [Ventolin HFA] 2 puff INHALATION RT-QID PRN #1 12/20/21 each Thiamine [Vitamin B-1] 100 mg PO DAILY #30 tablet 01/04/22 fluPHENAZine [Prolixin] 3 mg PO DAILY #60 tablet 01/04/22 hydrOXYzine pamoate [Vistaril] 50 mg PO TID PRN #60 cap 01/04/22 Amoxic-Pot Clav 875-125Mg 1 tab PO Q12HR 1 Days #12 tab 01/05/22 [Augmentin 875-125] Allergies Allergy/AdvReac Type Severity Reaction Status Date / Time metals Allergy Rash/Hives, Uncoded 01/16/22 13:19 swelling Review of Systems ROS Statement: Those systems with pertinent positive or pertinent negative responses have been documented in the HPI. ROS Other: All systems not noted in ROS Statement are negative. Past Medical History Past Medical History: Asthma, COPD, Diabetes Mellitus, GERD/Reflux, Hypertension, Skin Disorder Additional Past Medical History / Comment(s): hx spina bifida, spinal stenosis, pancreatitis. scrotal wound (to start on antibiotics 10/31/15), migraines, uses wheelchair-can ambulate but does fall at times. Tardive Dyskinesia History of Any Multi-Drug Resistant Organisms: None Reported Past Surgical History: Back Surgery Additional Past Surgical History / Comment(s): back surgery- 3 rods, 4 screws Past Anesthesia/Blood Transfusion Reactions: No Reported Reaction Past Psychological History: ADD/ADHD, Anxiety, Bipolar Smoking Status: Current every day smoker Past Alcohol Use History: Abuse Past Drug Use History: None Reported - Past Family History Mother Family Medical History: Cancer Father Family Medical History: Cancer General Exam - General Exam Comments Initial Comments: GENERAL: Patient is well-developed and well-nourished. Patient is nontoxic and well- hydrated and is in mild distress. ENT: Neck is soft and supple. No significant lymphadenopathy is noted. Oropharynx is clear. Moist mucous membranes. Neck has full range of motion without eliciting any pain. EYES: The sclera were anicteric and conjunctiva were pink and moist. Extraocular movements were intact and pupils were equal round and reactive to light. Eyelids were unremarkable. PULMONARY: Unlabored respirations. Good breath sounds bilaterally. No audible rales rhonchi or wheezing was noted. CARDIOVASCULAR: Patient is tachycardic at about 110 bpm ABDOMEN: Soft and nontender with normal bowel sounds. SKIN: Skin is clear with no lesions or rashes and otherwise unremarkable. NEUROLOGIC: Patient is alert and oriented x3. Cranial nerves II through XII are grossly intact. Motor and sensory are also intact. Normal speech, volume and content. Symmetrical smile. MUSCULOSKELETAL: Normal extremities with adequate strength and full range of motion. LYMPHATICS: No significant lymphadenopathy is noted PSYCHIATRIC: Patient is very anxious. Course Vital Signs 01/16/22 1122 13:16 13:22 Temperature 97.5 F L Pulse Rate 66 Respiratory 24 Rate Blood Pressure 140/61 O2 Sat by Pulse 97 Oximetry Disposition Clinical Impression: Panic disorder Disposition: HOME SELF-CARE Instructions (If sedation given, give patient instructions): Generalized Anxiety Disorder (ED) Is patient prescribed a controlled substance at d/c from ED?: No Referrals: Anne Sosa MD [Primary Care Provider] - 1-2 days Time of Disposition: 13:56
== END 2022-01-16 13:59 | disposition home or self-care (01) ==
LOC: EC 13:06
DX: F41.0 Panic disorder [episodic paroxysmal anxiety] (principal); I10 Essential (primary) hypertension; J45.909 Unspecified asthma, uncomplicated; J44.9 Chronic obstructive pulmonary disease, unspecified; E11.9 Type 2 diabetes mellitus without complications; K21.9 Gastro-esophageal reflux disease without esophagitis; F90.9 Attention-deficit hyperactivity disorder, unspecified type; F31.9 Bipolar disorder, unspecified; F10.10 Alcohol abuse, uncomplicated; F17.200 Nicotine dependence, unspecified, uncomplicated; Z79.84 Long term (current) use of oral hypoglycemic drugs; Z79.83 Long term (current) use of bisphosphonates; Z79.899 Other long term (current) drug therapy; Z79.51 Long term (current) use of inhaled steroids; Z91.048 Other nonmedicinal substance allergy status
CPT/HCPCS: 99284

== ENCOUNTER 2022-01-20 02:01 | Inpatient (IN) | payer MEDICARE, OTHER ==
[2022-01-20] MEDS ORDERED: SODIUM CHLORIDE 0.9% 1,000 ML IV STA (02:19)
[2022-01-20] MEDS ORDERED: LORazepam 2 MG/ML INJ IV STA (02:22)
[2022-01-20] MEDS ORDERED: THIAMINE 100 MG/ML 2 ML VIAL IVP STA (02:22)
[2022-01-20 02:30] LABS: Basophils % (A) 0 %; Eosinophils # (A) 0.1 k/uL (0-0.7); Eosinophils % (A) 0 %; HCT 47.1 % (39.0-53.0); HGB 16.2 gm/dL (13.0-17.5); Lymphocytes # (A) 0.7 k/uL (1.0-4.8); Lymphocytes % (A) 4 %; MCH 31.2 pg (25.0-35.0); MCHC 34.4 g/dL (31.0-37.0); MCV 90.6 fL (80.0-100.0); Mean Platelet Volume 7.1; Monocytes # (A) 0.6 k/uL (0-1.0); Monocytes % (A) 4 %; Neutrophils # (A) 14.7 k/uL (1.3-7.7); Neutrophils % (A) 91 %; Platelet Count 195 k/uL (150-450); RDW 13.2 % (11.5-15.5); WBC 16.1 k/uL (3.8-10.6)
[2022-01-20 02:39] LABS: ALT 17 U/L (4-49); AST 29 U/L (17-59); Acetaminophen <10.0 ug/mL; African American GFR (CKD) >90 (>60 ml/min/1.73 sqM); Albumin 3.7 g/dL (3.5-5.0); Alcohol <10 mg/dL; Alkaline Phosphatase 122 U/L (38-126); Anion Gap 7 mmol/L; Bilirubin, Delta 0.4 mg/dL (0.0-0.2); Bilirubin,Unconjugated 0.2 mg/dL (0.0-1.1); Blood Urea Nitrogen 12 mg/dL (9-20); Carbon Dioxide 28 mmol/L (22-30); Chloride 91 mmol/L (98-107); Glucose 168 mg/dL (74-99); Non-African American GFR(CKD) >90 (>60 ml/min/1.73 sqM); Potassium 4.7 mmol/L (3.5-5.1); Salicylate <1.0 mg/dL; Sodium 126 mmol/L (137-145); Total Bilirubin 0.6 mg/dL (0.2-1.3); Total Protein 6.1 g/dL (6.3-8.2)
--- NOTE | 2022-01-20 02:48 | ED ---
Anxiety HPI - General Chief Complaint: Anxiety Stated Complaint: Anxiety Time Seen by Provider: 01/20/22 02:09 Source: patient, RN notes reviewed Mode of arrival: ambulatory - History of Present Illness Initial Comments: This is a 46-year-old male who has had multiple visits to the emergency department of [facility]. Patient complaining of anxiety. Patient has a history of anxiety, asthma, COPD, diabetes mellitus, hypertension. Patient denying any illness stating that his symptoms are caused by anxiety. She denies any chest pain or shortness of breath. No fever or chills. No nausea or vomiting. Patient denying any illicit drug abuse or alcohol abuse. No headache, no fever or chills, no changes in vision or hearing, no sore throat or difficulty with speech, no neck pain, no chest pain or shortness of breath, no abdominal pain, no nausea or vomiting, no changes in urination or bowel movements, no numbness or tingling, no extremity pain, no skin rashes or lesions. Past medical, surgical, social, and family history reviewed. MD Complaint: anxiety - Related Data Home Medications: Home Medications Medication Instructions Recorded Confirmed Atorvastatin Calcium [Lipitor] 20 mg PO HS 12/31/20 01/07/22 Empagliflozin [Jardiance] 25 mg PO DAILY 12/31/20 01/07/22 metFORMIN HCL [Glucophage] 1,000 mg PO BID 12/31/20 01/07/22 fluvoxaMINE [Luvox] 50 mg PO DAILY 07/17/21 01/07/22 fluvoxaMINE [Luvox] 100 mg PO HS 07/17/21 01/07/22 Valbenazine Tosylate [Ingrezza 1 cap PO DAILY 12/16/21 01/07/22 40/80 MG Initiation Pack] Cholecalciferol [Vitamin D3 (125 125 mcg PO DAILY 12/28/21 01/07/22 Mcg = 5000 Iu)] Ipratropium-Albuterol Nebulize 3 ml INHALATION RT-QID PRN 12/28/21 01/07/22 [Duoneb 0.5 mg-3 mg/3 ml Soln] Omeprazole 20 mg PO DAILY 12/28/21 01/07/22 QUEtiapine [SEROquel] 100 mg PO BID 01/07/22 01/07/22 Previous Rx's Medication Instructions Recorded Budesonide-Formot 160-4.5 Mcg 2 puff INHALATION RT-BID each 08/03/21 [Symbicort 160-4.5 Mcg Inhaler] Furosemide [Lasix] 40 mg PO DAILY tab 08/03/21 Albuterol Sulfate [Ventolin HFA] 2 puff INHALATION RT-QID PRN #1 12/20/21 each Thiamine [Vitamin B-1] 100 mg PO DAILY #30 tablet 01/04/22 fluPHENAZine [Prolixin] 3 mg PO DAILY #60 tablet 01/04/22 hydrOXYzine pamoate [Vistaril] 50 mg PO TID PRN #60 cap 01/04/22 Amoxic-Pot Clav 875-125Mg 1 tab PO Q12HR 1 Days #12 tab 01/05/22 [Augmentin 875-125] Allergies/Adverse Reactions: Allergies Allergy/AdvReac Type Severity Reaction Status Date / Time metals Allergy Rash/Hives, Uncoded 01/16/22 13:19 swelling Review of Systems ROS Statement: Those systems with pertinent positive or pertinent negative responses have been documented in the HPI. ROS Other: All systems not noted in ROS Statement are negative. Past Medical History Past Medical History: Asthma, COPD, Diabetes Mellitus, GERD/Reflux, Hypertension, Skin Disorder Additional Past Medical History / Comment(s): hx spina bifida, spinal stenosis, pancreatitis. scrotal wound (to start on antibiotics 10/31/15), migraines, uses wheelchair-can ambulate but does fall at times. Tardive Dyskinesia History of Any Multi-Drug Resistant Organisms: None Reported Past Surgical History: Back Surgery Additional Past Surgical History / Comment(s): back surgery- 3 rods, 4 screws Past Anesthesia/Blood Transfusion Reactions: No Reported Reaction Past Psychological History: ADD/ADHD, Anxiety, Bipolar Smoking Status: Current every day smoker Past Alcohol Use History: Abuse Past Drug Use History: None Reported - Past Family History Mother Family Medical History: Cancer Father Family Medical History: Cancer General Exam - General Exam Comments Initial Comments: Patient does not appear to be ill or toxic. Patient quite jittery and anxious. However patient can be refocused during the examination. Limitations: no limitations General appearance: alert, in no apparent distress, anxious Head exam: Present: atraumatic, normocephalic, normal inspection Eye exam: Present: normal appearance, PERRL, EOMI. Absent: scleral icterus, conjunctival injection, periorbital swelling ENT exam: Present: normal exam, normal oropharynx, mucous membranes moist, normal external ear exam. Absent: mucous membranes dry Neck exam: Present: normal inspection, full ROM. Absent: tenderness, meningismus, lymphadenopathy Respiratory exam: Present: rhonchi. Absent: respiratory distress, wheezes, rales, stridor Cardiovascular Exam: Present: normal rhythm, bradycardia, normal heart sounds. Absent: systolic murmur, diastolic murmur, rubs, gallop, clicks GI/Abdominal exam: Present: soft, normal bowel sounds. Absent: distended, tenderness, guarding, rebound, rigid Extremities exam: Present: normal inspection, full ROM, normal capillary refill. Absent: tenderness, pedal edema, joint swelling, calf tenderness Back exam: Present: normal inspection Neurological exam: Present: alert, oriented X3, CN II-XII intact Psychiatric exam: Present: anxious. Absent: homicidal ideation, suicidal ideation Skin exam: Present: warm, dry, intact, normal color. Absent: rash Course Vital Signs 01/20/22 02:03 Temperature 99.0 F Pulse Rate 113 H Respiratory 26 H Rate Blood Pressure 121/101 O2 Sat by Pulse 92 L Oximetry - Reevaluation(s) Reevaluation #1: 01/20/22 03:58 Medical record is reviewed Symptoms are improved here in the emergency department Patient is informed of results and questions answered Patient in no distress - Consultations Consultation #1: Patient also seen and assessed by the ED attending physician. Patient will be admitted for hyponatremia. Consultation #2: Patient meets sepsis criteria, likely due to left lower lobe pneumonia. I did compare this x-ray to the previous exam. Patient has new infiltrate. We'll cover with Zosyn and Zithromax. Patient is not hypotensive. Procedures - Sepsis Sepsis Focused Exam #1 Sepsis Focused Exam Date: 01/20/22 Sepsis Focused Exam Time: 04:18 Sepsis Focused Exam Complete: Yes Vital Signs & RN Notes Reviewed: Yes Capillary Refill: < 2 Seconds: Fingers, Toes Skin Color: Normal for Patient Respiratory Exam: rhonchi Cardiovascular Exam: tachycardia Medical Decision Making - Medical Decision Making The case was discussed in detail with ED attending physician. Presentation, findings, treatment plan discussed in detail. - Lab Data Result diagrams: 01/20/22 02:18 01/20/22 02:18 Lab Results 01/20/22 01/20/22 01/20/22 Range/Units 02:18 02:18 02:18 WBC 16.1 H (3.8-10.6) k/uL RBC 5.20 (4.30-5.90) m/uL Hgb 16.2 (13.0-17.5) gm/dL Hct 47.1 (39.0-53.0) % MCV 90.6 (80.0-100.0) fL MCH 31.2 (25.0-35.0) pg MCHC 34.4 (31.0-37.0) g/dL RDW 13.2 (11.5-15.5) % Plt Count 195 (150-450) k/uL MPV 7.1 Neutrophils % 91 % Lymphocytes % 4 % Monocytes % 4 % Eosinophils % 0 % Basophils % 0 % Neutrophils # 14.7 H (1.3-7.7) k/uL Lymphocytes # 0.7 L (1.0-4.8) k/uL Monocytes # 0.6 (0-1.0) k/uL Eosinophils # 0.1 (0-0.7) k/uL Basophils # 0.0 (0-0.2) k/uL Sodium 126 L (137-145) mmol/L Potassium 4.7 (3.5-5.1) mmol/L Chloride 91 L (98-107) mmol/L Carbon Dioxide 28 (22-30) mmol/L Anion Gap 7 mmol/L BUN 12 (9-20) mg/dL Creatinine 0.35 L (0.66-1.25) mg/dL Est GFR (CKD-EPI)AfAm >90 (>60 ml/min/1.73 sqM) Est GFR (CKD-EPI)NonAf >90 (>60 ml/min/1.73 sqM) Glucose 168 H (74-99) mg/dL Calcium 9.0 (8.4-10.2) mg/dL Total Bilirubin 0.6 (0.2-1.3) mg/dL Conjugated Bilirubin 0.0 (0.0-0.3) mg/dL Unconjugated Bilirubin 0.2 (0.0-1.1) mg/dL Delta Bilirubin 0.4 H (0.0-0.2) mg/dL AST 29 (17-59) U/L ALT 17 (4-49) U/L Alkaline Phosphatase 122 (38-126) U/L Troponin I 0.015 (0.000-0.034) ng/mL Total Protein 6.1 L (6.3-8.2) g/dL Albumin 3.7 (3.5-5.0) g/dL Salicylates <1.0 mg/dL Urine Opiates Screen (NotDetected) Ur Oxycodone Screen (NotDetected) Urine Methadone Screen (NotDetected) Ur Propoxyphene Screen (NotDetected) Acetaminophen <10.0 ug/mL Ur Barbiturates Screen (NotDetected) U Tricyclic Antidepress (NotDetected) Ur Phencyclidine Scrn (NotDetected) Ur Amphetamines Screen (NotDetected) U Methamphetamines Scrn (NotDetected) U Benzodiazepines Scrn (NotDetected) Urine Cocaine Screen (NotDetected) U Marijuana (THC) Screen (NotDetected) Serum Alcohol <10 mg/dL 01/20/22 Range/Units 03:55 WBC (3.8-10.6) k/uL RBC (4.30-5.90) m/uL Hgb (13.0-17.5) gm/dL Hct (39.0-53.0) % MCV (80.0-100.0) fL MCH (25.0-35.0) pg MCHC (31.0-37.0) g/dL RDW (11.5-15.5) % Plt Count (150-450) k/uL MPV Neutrophils % % Lymphocytes % % Monocytes % % Eosinophils % % Basophils % % Neutrophils # (1.3-7.7) k/uL Lymphocytes # (1.0-4.8) k/uL Monocytes # (0-1.0) k/uL Eosinophils # (0-0.7) k/uL Basophils # (0-0.2) k/uL Sodium (137-145) mmol/L Potassium (3.5-5.1) mmol/L Chloride (98-107) mmol/L Carbon Dioxide (22-30) mmol/L Anion Gap mmol/L BUN (9-20) mg/dL Creatinine (0.66-1.25) mg/dL Est GFR (CKD-EPI)AfAm (>60 ml/min/1.73 sqM) Est GFR (CKD-EPI)NonAf (>60 ml/min/1.73 sqM) Glucose (74-99) mg/dL Calcium (8.4-10.2) mg/dL Total Bilirubin (0.2-1.3) mg/dL Conjugated Bilirubin (0.0-0.3) mg/dL Unconjugated Bilirubin (0.0-1.1) mg/dL Delta Bilirubin (0.0-0.2) mg/dL AST (17-59) U/L ALT (4-49) U/L Alkaline Phosphatase (38-126) U/L Troponin I (0.000-0.034) ng/mL Total Protein (6.3-8.2) g/dL Albumin (3.5-5.0) g/dL Salicylates mg/dL Urine Opiates Screen Not Detected (NotDetected) Ur Oxycodone Screen Not Detected (NotDetected) Urine Methadone Screen Not Detected (NotDetected) Ur Propoxyphene Screen Not Detected (NotDetected) Acetaminophen ug/mL Ur Barbiturates Screen Not Detected (NotDetected) U Tricyclic Antidepress Not Detected (NotDetected) Ur Phencyclidine Scrn Not Detected (NotDetected) Ur Amphetamines Screen Not Detected (NotDetected) U Methamphetamines Scrn Not Detected (NotDetected) U Benzodiazepines Scrn Detected H (NotDetected) Urine Cocaine Screen Not Detected (NotDetected) U Marijuana (THC) Screen Not Detected (NotDetected) Serum Alcohol mg/dL - EKG Data EKG Comments: EKG reveals sinus tachycardia with a rate of 103. Normal intervals. Patient has frequent PVCs noted. Normal axis. No acute ST or T wave changes. When compared to the previous study from 01/07/2022 other than the ectopic beats there is no significant change. Critical Care Time Critical Care Time: Yes Total Critical Care Time: 20 Critical Care Time: Patient condition, patient poor historian, evaluation patient and response to treatment. Evaluation diagnostic tests. Disposition Clinical Impression: Hyponatremia, Anxiety, Sepsis, Left lower lobe pneumonia Disposition: ADMITTED IP TO THIS HOSP Instructions (If sedation given, give patient instructions): Generalized Anxiety Disorder (ED) Referrals: Anne Sosa MD [Primary Care Provider] - 1-2 days Time of Disposition: 03:23 Decision to Admit Reason: Admit from EC Decision Time: 03:23
[2022-01-20] MEDS ORDERED: ALBUTEROL NEBULIZED 2.5 MG/3 ML INHALATION PRN ×2 (04:06→14:03)
[2022-01-20] MEDS ORDERED: PNEUMONIA PROTOCOL UTILIZED 1 EACH MISC PO PRN (04:06)
[2022-01-20] MEDS ORDERED: PIPERACILLIN-TAZOBACTAM 3.375 GM in SODIUM CHLORIDE 0.9% 100 ML IVPB STA (04:06)
[2022-01-20] MEDS ORDERED: AZITHROMYCIN 500 MG in SODIUM CHLORIDE 0.9% 250 ML IVPB STA (04:06)
[2022-01-20] MEDS ORDERED: IPRATROPIUM-ALBUTEROL 3 ML NEB INHALATION PRN (04:09)
[2022-01-20] MEDS ORDERED: IPRATROPIUM-ALBUTEROL 3 ML NEB INHALATION STA (04:09)
--- NOTE | 2022-01-20 04:11 | CT ---
EXAMINATION TYPE: CT brain wo con DATE OF EXAM: 01/20/2022 COMPARISON: 01/01/2022 HISTORY: ams CT DLP: 1182.4 mGycm Automated exposure control for dose reduction was used. Ventricles and sulci appear normal. There is no mass effect or midline shift. No sign of intracranial hemorrhage. Calvarium is intact. There is some mucosal thickening in the ethmoid air cells. No evide nce of cerebral edema. IMPRESSION: Negative CT scan of the brain. No change compared to old exam.
--- NOTE | 2022-01-20 04:21 | XR ---
EXAMINATION TYPE: XR chest 1V portable DATE OF EXAM: 01/20/2022 COMPARISON: 01/08/2022 HISTORY: Anxiety. Tachycardia. TECHNIQUE: Single view FINDINGS: There is poorly marginated 7 cm area of airspace consolidation in the left lower lobe. Ther e is a mild infiltrate and atelectasis at both lung bases. No heart failure. Heart size is normal. Francesco ny thorax is intact. There are no hilar masses. IMPRESSION: Bilateral lower lobe pneumonia and atelectasis which is much worse on the left side and a ppears new compared to old exam.
[2022-01-20 04:25] LABS: Amphetamine Screen,Urine Not Detected (NotDetected); Barbiturate Screen,Urine Not Detected (NotDetected); Benzodiazepines Screen,Urine Detected (NotDetected); Cocaine Screen,Urine Not Detected (NotDetected); Methadone Screen, Urine Not Detected (NotDetected); Opiate Screen,Urine Not Detected (NotDetected); Oxycodone Screen, Urine Not Detected (NotDetected); Phencyclidine Screen,Urine Not Detected (NotDetected); Tricyclic Antidepressant,Urine Not Detected (NotDetected); Urn Cannabinoid Scrn Not Detected (NotDetected)
[2022-01-20] MEDS: SODIUM CHLORIDE 0.9% 1,000 ML IV SCH ×3 (04:58→21:42)
[2022-01-20] MEDS ORDERED: SODIUM CHLORIDE 0.9% 1,000 ML IV ONE (05:00)
[2022-01-20] MEDS ORDERED: NALOXONE 0.4 MG/ML 1 ML VIAL IV PRN (05:14)
[2022-01-20] MEDS ORDERED: ALBUTEROL HFA INHALER INHALATION PRN (05:50)
[2022-01-20] MEDS: FOLIC ACID 1 MG TAB PO SCH (08:56)
[2022-01-20] MEDS: HEPARIN SODIUM,PORCINE/PF 5,000 UNIT/0.5 ML SYRINGE SQ SCH ×2 (08:57→16:03)
[2022-01-20] MEDS: PIPERACILLIN-TAZOBACTAM 3.375 GM in SODIUM CHLORIDE 0.9% 100 ML IVPB SCH ×2 (13:43→21:40)
--- NOTE | 2022-01-20 15:49 | CT ---
EXAMINATION TYPE: CT chest angio for PE DATE OF EXAM: 01/20/2022 COMPARISON: None HISTORY: elevated d-dimer, +covid CT DLP: 383.1 mGycm Automated exposure control for dose reduction was used. CONTRAST: Performed with IV Contrast, patient injected with 100 mL of Isovue 370. There are Three-D postprocessed images. There is peripheral patchy bilateral groundglass interstitial pulmonary infiltrates. Heart size is no rmal. No pericardial effusion. There are no hilar masses. There are a few mediastinal and bronchial l ymph nodes up to 1 cm. Thoracic aorta is intact. No aneurysm. No dissection. No filling defects seen in the pulmonary arteries. The bony thorax is intact. Sternum is intact. IMPRESSION: No evidence of pulmonary embolism. Bilateral patchy peripheral pulmonary edema consistent with inters titial pneumonia. Normal heart.
[2022-01-20] MEDS: hydrOXYzine pamoate 25 MG CAP PO SCH ×2 (16:03→21:39)
[2022-01-20] MEDS: LORazepam 1 MG TAB PO PRN ×2 (16:04→21:39)
[2022-01-20 17:00] LABS: Glucose,Whole Blood 92 mg/dL (70-110)
--- NOTE | 2022-01-20 17:29 | P.CNPUL ---
History of Present Illness Consult date: 01/20/22 Requesting physician: Jr Fuller Reason for consult: dyspnea, cough, hypoxemia, pneumonia, abnormal CXR/CT Chief complaint: Shortness of breath, cough. History of present illness: Pulmonary consult dated 01/20/2022. 46-year-old male, who presented to the emergency department on January 20, at 2:00 in the morning, apparently complaining of anxiety. The patient has had recent admissions to the hospital, most recently in January. He is also had admissions in July and December. On his last admission in January, he came in with alcohol intoxication, and had a very high alcohol level, greater than 300, and required intubation for airway protection on January 01, with extubation on January 02. Currently, he's on 2 L of oxygen, and on saline at KVO. He tested positive for coronavirus, and was admitted with a diagnosis of left lower lobe pneumonia. The patient is not a particularly good historian, but states that he's been having some shortness of breath, and cough. No fever or chills. I saw him on his last admission, when he was in the intensive care unit, after being extubated. White count 16.1, hemoglobin 16.2, hematocrit 47.1, and platelet count 295,000. D-dimer is 0.99. Sodium 126, potassium 4.7, chlorides 91, CO2 28, BUN 12, and creatinine 0.35. Glucose 168. C-reactive protein is 15.4. Albumin 3.7. Drug screen was positive for benzodiazepines. Alcohol level was less than 10. He did test positive for coronavirus. Chest x-ray shows bibasilar pneumonia, left greater than right. CTA showed no evidence of pulmonary embolism, but did show bilateral patchy infiltrates, consistent with pneumonia. Review of Systems REVIEW OF SYSTEMS: Patient is not a reliable historian. CONSTITUTIONAL: [Negative.] NEUROLOGIC: Anxiety. HEENT: [ Negative.] CARDIAC: [Negative.] PULMONARY: Cough and shortness of breath. GI: [Negative.] : [Negative.] RHEUMATOLOGIC: [ Negative.] IMMUNOLOGIC: [ Negative.] ENDOCRINE: [Negative. ] DERMATOLOGIC: [Negative.] Past Medical History Past Medical History: Asthma, COPD, Diabetes Mellitus, GERD/Reflux, Hypertension, Skin Disorder Additional Past Medical History / Comment(s): hx spina bifida, spinal stenosis, pancreatitis. scrotal wound (to start on antibiotics 10/31/15), migraines, uses wheelchair-can ambulate but does fall at times. Tardive Dyskinesia History of Any Multi-Drug Resistant Organisms: None Reported Past Surgical History: Back Surgery Additional Past Surgical History / Comment(s): back surgery- 3 rods, 4 screws Past Anesthesia/Blood Transfusion Reactions: No Reported Reaction Past Psychological History: ADD/ADHD, Anxiety, Bipolar Smoking Status: Current every day smoker Past Alcohol Use History: Abuse Past Drug Use History: None Reported - Past Family History Mother Family Medical History: Cancer Father Family Medical History: Cancer Medications and Allergies Home Medications Medication Instructions Recorded Confirmed Type Atorvastatin Calcium [Lipitor] 20 mg PO HS 12/31/20 01/20/22 History Empagliflozin [Jardiance] 25 mg PO DAILY 12/31/20 01/20/22 History metFORMIN HCL [Glucophage] 1,000 mg PO BID 12/31/20 01/20/22 History Budesonide-Formot 160-4.5 Mcg 2 puff INHALATION RT-BID each 08/03/21 01/20/22 Rx [Symbicort 160-4.5 Mcg Inhaler] Furosemide [Lasix] 40 mg PO DAILY tab 08/03/21 01/20/22 Rx Cholecalciferol [Vitamin D3 (125 125 mcg PO DAILY 12/28/21 01/20/22 History Mcg = 5000 Iu)] Ipratropium-Albuterol Nebulize 3 ml INHALATION RT-QID PRN 12/28/21 01/20/22 History [Duoneb 0.5 mg-3 mg/3 ml Soln] Albuterol Sulfate [Ventolin HFA] 1 - 2 puff INHALATION RT-QID PRN 01/20/22 01/20/22 History Ipratropium-Albuterol Nebulize 3 ml INHALATION RT-Q2H PRN 01/20/22 01/20/22 History [Duoneb 0.5 mg-3 mg/3 ml Soln] Naltrexone HCl [Revia] 50 mg PO DAILY 01/20/22 01/20/22 History Sertraline [Zoloft] 50 mg PO DAILY 01/20/22 01/20/22 History Valbenazine Tosylate [Ingrezza] 80 mg PO HS 01/20/22 01/20/22 History fluPHENAZine [Prolixin] 3 mg PO HS 01/20/22 01/20/22 History hydrOXYzine pamoate [Vistaril] 50 mg PO TID 01/20/22 01/20/22 History Allergies Allergy/AdvReac Type Severity Reaction Status Date / Time metals Allergy Rash/Hives, Uncoded 01/20/22 13:22 swelling Physical Exam Osteopathic Statement: *. No significant issues noted on an osteopathic structural exam other than those noted in the History and Physical/Consult. Vitals: Vital Signs Temp Pulse Pulse Pulse Resp BP BP 01/20/22 16:55 98.6 F 95 22 125/83 01/20/22 16:02 87 87 17 130/96 130/96 01/20/22 14:50 89 89 20 102/86 102/86 01/20/22 13:43 88 88 16 120/72 120/72 01/20/22 12:20 87 87 16 105/93 105/93 01/20/22 11:09 93 93 20 84/65 84/65 01/20/22 10:00 90 90 15 103/76 103/76 01/20/22 09:13 90 90 16 102/64 102/64 01/20/22 08:14 90 90 16 102/71 102/71 01/20/22 07:32 98.7 F 87 87 17 100/70 100/70 01/20/22 06:55 110/59 01/20/22 06:23 98.8 F 90 18 109/73 01/20/22 05:53 100/56 01/20/22 04:50 99.7 F H 97 22 89/53 01/20/22 04:47 99.7 F H 97 16 89/53 01/20/22 02:03 99.0 F 113 H 26 H 121/101 Pulse Ox 01/20/22 16:55 95 01/20/22 16:02 98 01/20/22 14:50 96 01/20/22 13:43 96 01/20/22 12:20 96 01/20/22 11:09 96 01/20/22 10:00 96 01/20/22 09:13 97 01/20/22 08:14 95 01/20/22 07:32 96 01/20/22 06:55 01/20/22 06:23 01/20/22 05:53 01/20/22 04:50 98 01/20/22 04:47 98 01/20/22 02:03 92 L Intake and Output 01/20/22 01/20/22 01/20/22 06:59 14:59 22:59 Other: Weight 77.111 kg No acute distress, oriented 3. In no respiratory distress. Currently on 4 L. No audible wheezing, use of accessory muscles, or conversational dyspnea. The patient is not a particularly good historian. HEENT examination is grossly unremarkable. Neck supple. Full range of motion. No adenopathy thyromegaly or neck vein distention. Cardiovascular examination reveals regular rhythm rate. S1-S2 normal. No S3 or S4. No discernible murmur noted. Heart rate 87 bpm. Heart sounds are distant. Lungs reveal mostly clear breath sounds. Scattered rhonchi are noted. No wheezes or crackles. Breath sounds equal bilaterally. 4 L saturation is 95%. Abdomen soft bowel sounds are heard. No masses or tenderness. Extremities are intact. No cyanosis clubbing or edema. Skin is without rash or lesion. Neurologic examination is brief but nonfocal. Results - Laboratory Findings CBC and BMP: 01/20/22 02:18 01/20/22 02:18 PT/INR, D-dimer D-Dimer 0.99 mg/L FEU (<0.60) H 01/20/22 14:40 Abnormal lab findings: Abnormal Labs 01/20/22 01/20/22 01/20/22 02:18 02:18 03:55 WBC 16.1 H Neutrophils # 14.7 H Lymphocytes # 0.7 L D-Dimer Sodium 126 L Chloride 91 L Creatinine 0.35 L Glucose 168 H Delta Bilirubin 0.4 H C-Reactive Protein Total Protein 6.1 L U Benzodiazepines Scrn Detected H Coronavirus (PCR) 01/20/22 01/20/22 01/20/22 04:38 04:47 14:40 WBC Neutrophils # Lymphocytes # D-Dimer 0.99 H Sodium Chloride Creatinine Glucose Delta Bilirubin C-Reactive Protein 15.4 H Total Protein U Benzodiazepines Scrn Coronavirus (PCR) Detected A - Diagnostic Findings Chest x-ray: image reviewed CT scan - chest: image reviewed Assessment and Plan Assessment: Bibasilar pneumonia, left greater than right. This may reflect a community- acquired pneumonia, versus coronavirus associated pneumonia. Patient is not particularly hypoxemic, and respiratory complaints are mild to moderate at best. Ventilator-dependent respiratory failure, January 2022, secondary to alcohol intoxication, with intubation on January 01, and extubation on January 02. History of COPD/asthma. History of diabetes mellitus. History of gastroesophageal reflux disease. History of hypertension. History of spina bifida. History of pancreatitis. History of tardive dyskinesia. History of bipolar disorder. Plan: Plan dated 01/20/2022. The patient's currently on albuterol, azithromycin, Symbicort, and Zosyn. I'm going to add some Decadron. The patient is on heparin subcu. Additional recommendations and suggestions are forthcoming. Prognosis is certainly guarded. The patient is not a particularly good historian. I will check a pro-calcitonin level, and an N-terminal proBNP. We will continue to follow the patient and make recommendations along the way. Time with Patient: Greater than 30
[2022-01-20 20:49] LABS: Glucose,Whole Blood 142 mg/dL (70-110)
[2022-01-20] MEDS: ATORVASTATIN 20 MG TAB PO SCH (21:39)
[2022-01-20] MEDS: metFORMIN 500 MG TAB PO SCH (21:39)
[2022-01-20] MEDS: INGREZZA 80 MG PO SCH (21:43)
[2022-01-20] MEDS: SYMBICORT 160-4.5 MCG INHALER INHALATION SCH (21:49)
[2022-01-20] MEDS ORDERED: LORazepam 1 MG TAB PO PRN (22:22)
[2022-01-20] MEDS ORDERED: LORazepam 0.5 MG TAB PO PRN (22:22)
[2022-01-20] MEDS: ACETAMINOPHEN TAB 325 MG TAB PO PRN (22:31)
--- NOTE | 2022-01-20 23:43 | HP ---
HISTORY AND PHYSICAL CHIEF COMPLAINT: Shortness of breath, cough, and anxiety. HISTORY OF PRESENT ILLNESS: This is a 46-year-old gentleman with a past medical history of multiple medical problems including COPD, was recently admitted to [facility] with asthma, COPD acute exacerbation. Currently, the patient is again complaining of shortness of breath, cough, and anxiety. The patient was found to have left lower lobe pneumonia persistent and the patient also found to be COVID positive also. There is no history of any fever, rigors, or chills at this time. PAST MEDICAL HISTORY: Reviewed, include COPD. The rest of the history and medications reviewed. MEDICATIONS: Home medications are reviewed include metformin. Doses and rest of medications reviewed. ALLERGIES: Metals. FAMILY HISTORY: History of cancer in the family. SOCIAL HISTORY: History of smoking and alcohol. REVIEW OF SYSTEMS: A 14-point review of systems is negative except as mentioned earlier. PHYSICAL EXAMINATION: VITAL SIGNS: Pulse is 88, blood pressure 120/70, respirations 16. HEENT: Conjunctivae normal. NECK: No JVD. CARDIOVASCULAR: S1, S2 normal. RESPIRATIONS: Bilateral scattered rhonchi and crackles. Breathing efforts are markedly increased. ABDOMEN: Soft, nontender. LEGS: No edema. NERVOUS SYSTEM: No focal deficits. LABS: WBC 16.1. ASSESSMENT: 1. Chronic obstructive pulmonary disease, asthma acute exacerbation with left lower lobe pneumonia with possible failure of outpatient treatment. 2. Acute COVID-19 infection. 3. History of diabetes mellitus type 2. 4. Hypertension. 5. Multiple medical issues. RECOMMENDATIONS AND DISCUSSION: This is a 46-year-old gentleman who presented with multiple complex medical issues. We will monitor the patient closely. We will initiate antibiotics. I would recommend cefepime and I would also recommend Pulmonary and Infectious Disease evaluation. COVID- 19 protocol. The patient might be a candidate for remdesivir. Further recommendations to follow. See orders for details. Prognosis guarded. MMODL / IJN: [id number] /
[2022-01-21] MEDS: HEPARIN SODIUM,PORCINE/PF 5,000 UNIT/0.5 ML SYRINGE SQ SCH ×4 (00:45→23:16)
[2022-01-21] MEDS: SODIUM CHLORIDE 0.9% 1,000 ML IV SCH ×3 (05:09→23:19)
[2022-01-21] MEDS: PIPERACILLIN-TAZOBACTAM 3.375 GM in SODIUM CHLORIDE 0.9% 100 ML IVPB SCH ×3 (05:09→21:54)
[2022-01-21] MEDS: LORazepam 1 MG TAB PO PRN ×2 (05:09→23:16)
[2022-01-21] MEDS ORDERED: guaiFENesin SYRUP 100MG/5ML 200 MG/10 ML CUP PO PRN (05:36)
[2022-01-21] MEDS: ALBUTEROL HFA INHALER INHALATION PRN ×4 (05:37→20:36)
[2022-01-21] MEDS: ACETAMINOPHEN TAB 325 MG TAB PO PRN (06:14)
[2022-01-21 06:36] LABS: Glucose,Whole Blood 115 mg/dL (70-110)
[2022-01-21] MEDS: LORazepam 2 MG/ML INJ IV PRN ×3 (06:40→15:59)
--- NOTE | 2022-01-21 07:59 | XR ---
EXAMINATION TYPE: XR chest 1V portable DATE OF EXAM: 01/21/2022 COMPARISON: 01/20/2022 HISTORY: Shortness of breath TECHNIQUE: Single frontal view of the chest is obtained. FINDINGS: Bilateral areas of infiltrate greater sizable pleural effusion. Heart size normal. Curv[place] re of the spine. Arthropathy of the shoulder. IMPRESSION: Bilateral pneumonia stable.
--- NOTE | 2022-01-21 08:39 | P.CONS ---
History of Present Illness - Reason for Consult Consult date: 01/20/22 Covid Requesting physician: Jr Fuller - Chief Complaint Anxiety attack and shortness of breath x one day - History of Present Illness Patient is a 46-year-old male with multiple comorbidities including COPD diabetes mellitus hypertension pancreatitis presenting to the ER today in the morning complaining of an anxiety attack patient has been complaining of rowena rtness of breath apparently has been getting worse for the last few days before presentation to the hospital complaining of unable to catch his breath patient denies having any patient denies having any chest pain he did have a cough which is mild to moderate intensity with occasional sputum no hemoptysis he denies having any nausea vomiting no choking of food no abdominal pain or any diarrhea no urinary symptoms with the symptoms the patient has been evaluated by ER physician on arrival to the ER he did have a low-grade fever of 99.7 F patient did have mild tachycardia and hypoxemia requiring supplemental oxygen patient did have white count of 16.1 with a left shift D-dimer was mildly elevated creatinine is normal liver enzymes are normal urine testing was positive for benzos patient did have positive COVID testing influenza testing was negative patient did have a chest x-ray bilateral lower lobe pneumonia which is much worse on the left side and appears new compared to old exam patient also have a CT angiogram of the chest no evidence of PE bilateral patchy pulmonary edema consistent with aspiration pneumonia patient was admitted to hospital has been treated with Zithromax and Zosyn infectious disease was consulted for further management of antibiotic therapy Review of Systems Positive point has been mentioned in the HPI rest of the systems are negative Past Medical History Past Medical History: Asthma, COPD, Diabetes Mellitus, GERD/Reflux, Hypertension, Skin Disorder Additional Past Medical History / Comment(s): hx spina bifida, spinal stenosis, pancreatitis. scrotal wound (to start on antibiotics 10/31/15), migraines, uses wheelchair-can ambulate but does fall at times. Tardive Dyskinesia History of Any Multi-Drug Resistant Organisms: None Reported Past Surgical History: Back Surgery Additional Past Surgical History / Comment(s): back surgery- 3 rods, 4 screws Past Anesthesia/Blood Transfusion Reactions: No Reported Reaction Past Psychological History: ADD/ADHD, Anxiety, Bipolar Smoking Status: Current every day smoker Past Alcohol Use History: Abuse Past Drug Use History: None Reported - Past Family History Mother Family Medical History: Cancer Father Family Medical History: Cancer Medications and Allergies Home Medications Medication Instructions Recorded Confirmed Type Atorvastatin Calcium [Lipitor] 20 mg PO HS 12/31/20 01/20/22 History Empagliflozin [Jardiance] 25 mg PO DAILY 12/31/20 01/20/22 History metFORMIN HCL [Glucophage] 1,000 mg PO BID 12/31/20 01/20/22 History Budesonide-Formot 160-4.5 Mcg 2 puff INHALATION RT-BID each 08/03/21 01/20/22 Rx [Symbicort 160-4.5 Mcg Inhaler] Furosemide [Lasix] 40 mg PO DAILY tab 08/03/21 01/20/22 Rx Cholecalciferol [Vitamin D3 (125 125 mcg PO DAILY 12/28/21 01/20/22 History Mcg = 5000 Iu)] Ipratropium-Albuterol Nebulize 3 ml INHALATION RT-QID PRN 12/28/21 01/20/22 History [Duoneb 0.5 mg-3 mg/3 ml Soln] Albuterol Sulfate [Ventolin HFA] 1 - 2 puff INHALATION RT-QID PRN 01/20/22 01/20/22 History Ipratropium-Albuterol Nebulize 3 ml INHALATION RT-Q2H PRN 01/20/22 01/20/22 History [Duoneb 0.5 mg-3 mg/3 ml Soln] Naltrexone HCl [Revia] 50 mg PO DAILY 01/20/22 01/20/22 History Sertraline [Zoloft] 50 mg PO DAILY 01/20/22 01/20/22 History Valbenazine Tosylate [Ingrezza] 80 mg PO HS 01/20/22 01/20/22 History fluPHENAZine [Prolixin] 3 mg PO HS 01/20/22 01/20/22 History hydrOXYzine pamoate [Vistaril] 50 mg PO TID 01/20/22 01/20/22 History Amoxic-Pot Clav 875-125Mg 1 tab PO BID 7 Days #14 tab 01/23/22 Rx [Augmentin 875-125] Allergies Allergy/AdvReac Type Severity Reaction Status Date / Time metals Allergy Rash/Hives, Uncoded 01/20/22 13:22 swelling Physical Exam Vitals: Vital Signs Temp Pulse Pulse Resp BP BP Pulse Ox 01/20/22 13:43 88 88 16 120/72 120/72 96 01/20/22 12:20 87 87 16 105/93 105/93 96 01/20/22 11:09 93 93 20 84/65 84/65 96 01/20/22 10:00 90 90 15 103/76 103/76 96 01/20/22 09:13 90 90 16 102/64 102/64 97 01/20/22 08:14 90 90 16 102/71 102/71 95 01/20/22 07:32 98.7 F 87 87 17 100/70 100/70 96 01/20/22 06:55 110/59 01/20/22 06:23 98.8 F 90 18 109/73 01/20/22 05:53 100/56 01/20/22 04:50 99.7 F H 97 22 89/53 98 01/20/22 04:47 99.7 F H 97 16 89/53 98 01/20/22 02:03 99.0 F 113 H 26 H 121/101 92 L Intake and Output 01/19/22 01/20/22 01/20/22 22:59 06:59 14:59 Other: Weight 77.111 kg GENERAL DESCRIPTION: Middle-aged male lying in bed, no distress. No tachypnea or accessory muscle of respiration use. HEENT: Shows Pallor , no scleral icterus. Oral mucous membrane is dry. No pharyngeal erythema or thrush NECK: Trachea central, no thyromegaly. LUNGS: Unlabored breathing. Decreased intensity of breath sounds. No wheeze or crackle. HEART: S1, S2, regular rate and rhythm. No loud murmur ABDOMEN: Soft, no tenderness , guarding or rigidity, no organomegaly EXTREMITIES: No edema of feet. SKIN: No rash, no masses palpable. NEUROLOGICAL: The patient is awake, alert, oriented x3, mood and affect normal. Results CBC & Chem 7: 01/23/22 07:09 01/23/22 07:09 Labs: Abnormal Lab Results - Last 24 Hours (Table) 01/20/22 01/20/22 01/20/22 Range/Units 02:18 02:18 03:55 WBC 16.1 H (3.8-10.6) k/uL Neutrophils # 14.7 H (1.3-7.7) k/uL Lymphocytes # 0.7 L (1.0-4.8) k/uL Sodium 126 L (137-145) mmol/L Chloride 91 L (98-107) mmol/L Creatinine 0.35 L (0.66-1.25) mg/dL Glucose 168 H (74-99) mg/dL Delta Bilirubin 0.4 H (0.0-0.2) mg/dL C-Reactive Protein (<1.0) mg/dL Total Protein 6.1 L (6.3-8.2) g/dL U Benzodiazepines Scrn Detected H (NotDetected) Coronavirus (PCR) (Not Detectd) 01/20/22 01/20/22 Range/Units 04:38 04:47 WBC (3.8-10.6) k/uL Neutrophils # (1.3-7.7) k/uL Lymphocytes # (1.0-4.8) k/uL Sodium (137-145) mmol/L Chloride (98-107) mmol/L Creatinine (0.66-1.25) mg/dL Glucose (74-99) mg/dL Delta Bilirubin (0.0-0.2) mg/dL C-Reactive Protein 15.4 H (<1.0) mg/dL Total Protein (6.3-8.2) g/dL U Benzodiazepines Scrn (NotDetected) Coronavirus (PCR) Detected A (Not Detectd) Assessment and Plan (1) Pneumonia Status: Acute Code(s): J18.9 - PNEUMONIA, UNSPECIFIED ORGANISM SNOMED Code(s): 009187809 Plan: 1patient presented to hospital with anxiety attack complaining of increasing shortness of breath he also have a cough in this patient did have elevated white count with a predominant left-sided pneumonia and has been into the hospital concerning for possible gram-negative versus community-acquired pneumonia. 2patient also tested positive for COVID-19 and may be contributing to some of his symptoms. 3we will obtain a sputum for gram stain and culture check a procalcitonin and a CRP level. 4patient to continue with Zosyn while waiting for the culture to finalize. We will follow on clinical condition and cultures to further adjust medication if needed Thank you for this consultation will follow this patient along with you Time with Patient: Greater than 30
[2022-01-21] MEDS ORDERED: AZITHROMYCIN 500 MG in SODIUM CHLORIDE 0.9% 250 ML IVPB SCH (09:00)
[2022-01-21 09:01] LABS: Basophils # (A) 0.02 X 10*3/uL (0.00-0.10); Basophils % (A) 0.3 %; Eosinophils # (A) 0.08 X 10*3/uL (0.04-0.35); Eosinophils % (A) 1.2 %; HCT 42.2 % (39.6-50.0); HGB 13.6 g/dL (13.0-17.0); Immature Grans, Automated 0.3 %; Lymphocytes # (A) 1.55 X 10*3/uL (0.90-5.00); MCH 29.6 pg (27.0-32.0); MCHC 32.2 g/dL (32.0-37.0); MCV 91.7 fL (80.0-97.0); Mean Platelet Volume 9.4 fL (9.5-12.2); Monocytes # (A) 0.56 X 10*3/uL (0.20-1.00); Monocytes % (A) 8.3 %; NRBC Per 100 WBC 0 /100 WBCS (0.0-0.0); Neutrophils % (A) 66.9 %; Platelet Count 194 X 10*3/uL (140-440); RDW 13.4 % (11.5-14.5); WBC 6.73 X 10*3/uL (4.50-10.00)
[2022-01-21] MEDS: guaiFENesin 600 MG TABLET.ER PO SCH ×2 (09:07→21:53)
[2022-01-21] MEDS: FOLIC ACID 1 MG TAB PO SCH (09:07)
[2022-01-21] MEDS: dexAMETHasone 2 MG TAB PO SCH (09:07)
[2022-01-21] MEDS: hydrOXYzine pamoate 25 MG CAP PO SCH ×3 (09:07→21:53)
[2022-01-21] MEDS: SERTRALINE 50 MG TAB PO SCH (09:07)
[2022-01-21] MEDS: FUROSEMIDE 40 MG TAB PO SCH (09:07)
[2022-01-21] MEDS: metFORMIN 500 MG TAB PO SCH ×2 (09:07→21:53)
[2022-01-21] MEDS: NALTREXONE HCL 50 MG TAB PO SCH (09:07)
[2022-01-21] MEDS: CHOLECALCIFEROL 125 MCG (5000 IU) TABLET PO SCH (09:07)
[2022-01-21] MEDS: THIAMINE 100 MG TAB PO SCH (09:07)
[2022-01-21] MEDS: SYMBICORT 160-4.5 MCG INHALER INHALATION SCH ×2 (09:19→20:36)
[2022-01-21] MEDS: DAPAGLIFLOZIN PROPANEDIOL 10 MG TABLET PO SCH (09:27)
[2022-01-21 09:28] LABS: African American GFR (CKD) 162.8 (60.0-200.0); Anion Gap 7.1 mmol/L (10.00-18.00); BUN/Creat Ratio 18.5 Ratio (12.00-20.00); Blood Urea Nitrogen 7.4 mg/dL (9.0-27.0); Calcium 8.2 mg/dL (8.7-10.3); Carbon Dioxide 30.9 mmol/L (20.0-27.5); Non-African American GFR(CKD) 140.5 (60.0-200.0); Potassium 4.6 mmol/L (3.5-5.5)
[2022-01-21 11:47] LABS: Glucose,Whole Blood 80 mg/dL (70-110)
--- NOTE | 2022-01-21 16:06 | P.PN ---
Subjective Progress Note Date: 01/21/22 46-year-old male, who presented to the emergency department on January 20, at 2:00 in the morning, apparently complaining of anxiety. The patient has had recent admissions to the hospital, most recently in January. He is also had admissions in July and December. On his last admission in January, he came in with alcohol intoxication, and had a very high alcohol level, greater than 300, and required intubation for airway protection on January 01, with extubation on January 02. Currently, he's on 2 L of oxygen, and on saline at KVO. He tested positive for coronavirus, and was admitted with a diagnosis of left lower lobe pneumonia. The patient is not a particularly good historian, but states that he's been having some shortness of breath, and cough. No fever or chills. I saw him on his last admission, when he was in the intensive care unit, after being extubated. White count 16.1, hemoglobin 16.2, hematocrit 47.1, and platelet count 295,000. D-dimer is 0.99. Sodium 126, potassium 4.7, chlorides 91, CO2 28, BUN 12, and creatinine 0.35. Glucose 168. C-reactive protein is 15.4. Albumin 3.7. Drug screen was positive for benzodiazepines. Alcohol level was less than 10. He did test positive for coronavirus. Chest x-ray shows bibasilar pneumonia, left greater than right. CTA showed no evidence of pulmonary embolism, but did show bilateral patchy infiltrates, consistent with pneumonia. Today's evaluation of 01/21/2022, the patient is resting comfortably in bed. No signs of any significant respiratory distress. He is diagnosed having mild Covid 19 pneumonia with hypoxic respiratory failure. His hypoxemia improved. After being on 2 L of oxygen by nasal cannula, the patient is currently on room air oxygen. He tested positive for Covid 19 and the patient was started on steroids and the patient is currently receiving Decadron 6 mg daily. He was also started on broad-spectrum antibiotics and the patient is currently on a combination of Zosyn and Zithromax. The patient otherwise is doing well. White cell count is down to 6.7. Hemoglobin is at 13.6. The sodium is at 140, BUN is at 7.4 with a creatinine of 0.4. The pro calcitonin level was at 0.62. Tropo nins were negative. LFTs were normal. LDH and CRP has not been measured. Urine drug screen was positive for benzodiazepines. Objective - Vital Signs Vital signs: Vital Signs Temp 98.7 F 01/21/22 14:00 Pulse 83 01/21/22 14:00 Resp 20 01/21/22 14:00 BP 124/83 01/21/22 14:00 Pulse Ox 93 L 01/21/22 14:00 FiO2 Intake & Output 01/20/22 01/21/22 01/21/22 18:59 06:59 18:59 Output Total 900 Balance -900 Output: Urine 900 Other: Voiding Method Urinal Urinal Urinal # Voids 1 2 - Exam No acute distress, oriented 3. In no respiratory distress. Currently on RA . No audible wheezing, use of accessory muscles, or conversational dyspnea. The patient is not a particularly good historian. HEENT examination is grossly unremarkable. Neck supple. Full range of motion. No adenopathy thyromegaly or neck vein distention. Cardiovascular examination reveals regular rhythm rate. S1-S2 normal. No S3 or S4. No discernible murmur noted. Heart rate 87 bpm. Heart sounds are distant. Lungs reveal mostly clear breath sounds. Scattered rhonchi are noted. No wheezes or crackles. Breath sounds equal bilaterally. 4 L saturation is 95%. Abdomen soft bowel sounds are heard. No masses or tenderness. Extremities are intact. No cyanosis clubbing or edema. Skin is without rash or lesion. Neurologic examination is brief but nonfocal. - Labs CBC & Chem 7: 01/21/22 05:48 01/21/22 05:48 Labs: Abnormal Lab Results - Last 24 Hours (Table) 01/20/22 01/20/22 01/21/22 Range/Units 14:40 20:48 05:48 MPV 9.4 L (9.5-12.2) fL Carbon Dioxide (20.0-27.5) mmol/L Anion Gap (10.00-18.00) mmol/L BUN (9.0-27.0) mg/dL Creatinine (0.6-1.5) mg/dL POC Glucose (mg/dL) 142 H (70-110) mg/dL Calcium (8.7-10.3) mg/dL Procalcitonin 0.62 H (0.02-0.09) ng/mL 01/21/22 01/21/22 Range/Units 05:48 06:34 MPV (9.5-12.2) fL Carbon Dioxide 30.9 H (20.0-27.5) mmol/L Anion Gap 7.10 L (10.00-18.00) mmol/L BUN 7.4 L (9.0-27.0) mg/dL Creatinine 0.4 L (0.6-1.5) mg/dL POC Glucose (mg/dL) 115 H (70-110) mg/dL Calcium 8.2 L (8.7-10.3) mg/dL Procalcitonin (0.02-0.09) ng/mL Microbiology - Last 24 Hours (Table) 01/20/22 04:37 Blood Culture - Preliminary Blood No Growth after 24 hours 01/20/22 04:31 Blood Culture - Preliminary Blood No Growth after 24 hours Assessment and Plan Plan: Acute hypoxic respiratory failure, essentially related to Covid 19 related pneumonia, improved and the patient is currently on room air oxygen and the patient is also on Decadron. Mild elevation of the pro calcitonin. Placed on Zosyn and Zithromax. Acute Bibasilar pneumonia, left greater than right. This may reflect a community-acquired pneumonia, versus coronavirus associated pneumonia. I do favor Covid 19 related pneumonia. Patient is not particularly hypoxemic, and respiratory complaints are mild to moderate at best. Currently the patient is on room air oxygen and the patient is pulse oxing 96%. Ventilator-dependent respiratory failure, January 2022, secondary to alcohol intoxication, with intubation on January 01, and extubation on January 02. History of COPD/asthma. History of diabetes mellitus. History of gastroesophageal reflux disease. History of hypertension. History of spina bifida. History of pancreatitis. History of tardive dyskinesia. History of bipolar disorder. Plan: Covid 19 vaccination status is not known Continue Decadron Continue Zosyn and discontinue the Zithromax Oxygenation has improved and the patient is currently on room air oxygen Check LDH CRP D-dimer is at 0.99 Patient is on heparin subcu for DVT prophylaxis We'll continue to follow
[2022-01-21 16:56] LABS: Glucose,Whole Blood 109 mg/dL (70-110)
[2022-01-21 21:14] LABS: Glucose,Whole Blood 127 mg/dL (70-110)
[2022-01-21] MEDS: ATORVASTATIN 20 MG TAB PO SCH (21:53)
[2022-01-21] MEDS: INGREZZA 80 MG PO SCH (21:53)
--- NOTE | 2022-01-21 22:48 | P.PN ---
Subjective Progress Note Date: 01/21/22 Principal diagnosis: Pneumonia Patient is a 46-year-old male with multiple comorbidities including COPD diabetes mellitus presenting to the hospital concerning for anxiety attack he did have increasing shortness breath and cough and low-grade fever chills x- ray with possible left-sided pneumonia and the patient also have a positive covid test On today's evaluation that is 01/21/2022 the patient is afebrile this morning the patient is currently breathing comfortably on 4 L nasal cannula denies any chest pain no worsening cough or sputum production no abdominal pain no diarrhea Objective - Vital Signs Vital signs: Vital Signs Temp 97.4 F L 01/21/22 18:52 Pulse 88 01/21/22 18:52 Resp 29 H 01/21/22 15:45 BP 140/74 01/21/22 18:52 Pulse Ox 91 L 01/21/22 18:52 FiO2 Intake & Output 01/21/22 01/21/22 01/22/22 06:59 18:59 06:59 Intake Total 2520 Output Total 900 Balance -900 2520 Intake: Intake, IV Titration 1520 Amount Azithromycin 500 mg In 250 Sodium Chloride 0.9% 250 ml @ 250 mls/hr IVPB DAILY [facility] Rx#:[id number] Piperacillin-Tazobactam 3 100 .375 gm In Sodium Chloride 0.9% 100 ml @ 25 mls/hr IVPB Q8H [facility] Rx#: [id number] Sodium Chloride 0.9% 1, 1170 000 ml @ 130 mls/hr IV . Q7H42M [facility] Rx#:[id number] Oral 1000 Output: Urine 900 Other: Voiding Method Urinal Urinal # Voids 10 - Exam GENERAL DESCRIPTION: Middle-aged male lying in bed in no distress RESPIRATORY SYSTEM: Unlabored breathing , decreased breath sounds at bases HEART: S1 S2 regular rate and rhythm , ABDOMEN: Soft , no tenderness EXTREMITIES: No edema feet - Labs CBC & Chem 7: 01/21/22 05:48 01/21/22 05:48 Labs: Abnormal Lab Results - Last 24 Hours (Table) 01/20/22 01/21/22 01/21/22 Range/Units 14:40 05:48 05:48 MPV 9.4 L (9.5-12.2) fL Carbon Dioxide 30.9 H (20.0-27.5) mmol/L Anion Gap 7.10 L (10.00-18.00) mmol/L BUN 7.4 L (9.0-27.0) mg/dL Creatinine 0.4 L (0.6-1.5) mg/dL POC Glucose (mg/dL) (70-110) mg/dL Calcium 8.2 L (8.7-10.3) mg/dL Procalcitonin 0.62 H (0.02-0.09) ng/mL 01/21/22 01/21/22 Range/Units 06:34 21:12 MPV (9.5-12.2) fL Carbon Dioxide (20.0-27.5) mmol/L Anion Gap (10.00-18.00) mmol/L BUN (9.0-27.0) mg/dL Creatinine (0.6-1.5) mg/dL POC Glucose (mg/dL) 115 H 127 H (70-110) mg/dL Calcium (8.7-10.3) mg/dL Procalcitonin (0.02-0.09) ng/mL Microbiology - Last 24 Hours (Table) 01/20/22 04:37 Blood Culture - Preliminary Blood No Growth after 24 hours 01/20/22 04:31 Blood Culture - Preliminary Blood No Growth after 24 hours Assessment and Plan (1) Left lower lobe pneumonia Current Visit: Yes Status: Acute Code(s): J18.9 - PNEUMONIA, UNSPECIFIED ORGANISM SNOMED Code(s): 066072652 Plan: 1patient presented to hospital with anxiety attack complaining of increasing shortness of breath he also have a cough in this patient did have elevated white count with a predominant left-sided pneumonia and has been into the hospital concerning for possible gram-negative versus community-acquired pneumonia. 2patient also tested positive for COVID-19 and may be contributing to some of his symptoms. 3we will try to obtain sputum for gram stain and culture and waiting for proc alcitonin and a CRP level. 4patient to continue with Zosyn while waiting for the culture to finalize. Time with Patient: Less than 30
[2022-01-22] MEDS: SODIUM CHLORIDE 0.9% 1,000 ML IV SCH ×2 (01:27→19:26)
[2022-01-22] MEDS: LORazepam 1 MG TAB PO PRN ×2 (03:44→18:28)
[2022-01-22] MEDS: PIPERACILLIN-TAZOBACTAM 3.375 GM in SODIUM CHLORIDE 0.9% 100 ML IVPB SCH ×3 (04:47→21:56)
--- NOTE | 2022-01-22 05:15 | PN ---
PROGRESS NOTE DATE OF SERVICE: 01/21/2022 SUBJECTIVE: This is a 46-year-old gentleman who was admitted with COPD exacerbation, also had acute COVID-19 infection. The most recent chest x-ray which I reviewed showed bilateral pneumonia also. PHYSICAL EXAMINATION: VITAL SIGNS: Pulse is 81, blood pressure 130/85, respirations 17. HEENT: Conjunctivae normal. NECK: No JVD. CARDIOVASCULAR: S1, S2. RESPIRATIONS: Few scattered rhonchi. ABDOMEN: Soft. NERVOUS SYSTEM: Nonfocal. LABS: Creatinine is 0.4, rest of the labs are noted. ASSESSMENT: 1. Chronic obstructive pulmonary disease/asthma acute exacerbation with left lower lobe pneumonia with possible failure of outpatient treatment. 2. Acute COVID-19 infection. 3. Diabetes mellitus type 2. 4. Hypertension. 5. Multiple medical issues. 6. Anxiety. 7. Multiple medical issues. RECOMMENDATIONS: Recommended to continue current management, continue symptomatic treatment, continue the antibiotics. The patient is on Zithromax. Monitor closely. Repeat labs. Bronchodilators. The patient is on Zithromax and Rocephin. Guarded prognosis. Further recommendations to follow. See order for further details. MMODL / IJN: [id number] /
[2022-01-22 06:12] LABS: Glucose,Whole Blood 97 mg/dL (70-110)
[2022-01-22] MEDS: LORazepam 2 MG/ML INJ IV PRN ×2 (06:47→07:07)
[2022-01-22] MEDS: HEPARIN SODIUM,PORCINE/PF 5,000 UNIT/0.5 ML SYRINGE SQ SCH ×2 (08:18→15:34)
[2022-01-22] MEDS: DAPAGLIFLOZIN PROPANEDIOL 10 MG TABLET PO SCH (08:19)
[2022-01-22] MEDS: NALTREXONE HCL 50 MG TAB PO SCH (08:19)
[2022-01-22] MEDS: metFORMIN 500 MG TAB PO SCH ×2 (08:19→21:56)
[2022-01-22] MEDS: hydrOXYzine pamoate 25 MG CAP PO SCH ×3 (08:19→21:56)
[2022-01-22] MEDS: dexAMETHasone 2 MG TAB PO SCH (08:19)
[2022-01-22] MEDS: FOLIC ACID 1 MG TAB PO SCH (08:19)
[2022-01-22] MEDS: SERTRALINE 50 MG TAB PO SCH (08:19)
[2022-01-22] MEDS: FUROSEMIDE 40 MG TAB PO SCH (08:19)
[2022-01-22] MEDS: CHOLECALCIFEROL 125 MCG (5000 IU) TABLET PO SCH (08:19)
[2022-01-22] MEDS: THIAMINE 100 MG TAB PO SCH (08:19)
[2022-01-22] MEDS: guaiFENesin 600 MG TABLET.ER PO SCH ×2 (08:20→21:56)
[2022-01-22] MEDS: SYMBICORT 160-4.5 MCG INHALER INHALATION SCH ×2 (08:32→20:06)
[2022-01-22] MEDS: ALBUTEROL HFA INHALER INHALATION PRN ×3 (08:32→16:21)
[2022-01-22 10:19] LABS: HCT 44.4 % (39.6-50.0); HGB 14.6 g/dL (13.0-17.0); MCH 29.3 pg (27.0-32.0); MCHC 32.9 g/dL (32.0-37.0); MCV 89.2 fL (80.0-97.0); Mean Platelet Volume 8.9 fL (9.5-12.2); NRBC Per 100 WBC 0 /100 WBCS (0.0-0.0); Platelet Count 248 X 10*3/uL (140-440); RBC 4.98 X 10*6/uL (4.40-5.60); RDW 13.1 % (11.5-14.5); WBC 6.37 X 10*3/uL (4.50-10.00)
[2022-01-22 10:30] LABS: C Reactive Protein 6.3 mg/dL (0.00-0.80)
[2022-01-22] MEDS ORDERED: chlordiazePOXIDE 25 MG CAP PO PRN (10:38)
[2022-01-22 10:56] LABS: African American GFR (CKD) 150.7 (60.0-200.0); Anion Gap 6.4 mmol/L (10.00-18.00); BUN/Creat Ratio 25.88 Ratio (12.00-20.00); Blood Urea Nitrogen 12.5 mg/dL (9.0-27.0); Calcium 9.1 mg/dL (8.7-10.3); Carbon Dioxide 33.7 mmol/L (20.0-27.5); Potassium 3.9 mmol/L (3.5-5.5)
[2022-01-22 11:25] LABS: Glucose,Whole Blood 116 mg/dL (70-110)
[2022-01-22 11:56] LABS: Basophils # (A) 0.02 X 10*3/uL (0.00-0.10); Basophils % (A) 0.3 %; Eosinophils # (A) 0.02 X 10*3/uL (0.04-0.35); Eosinophils % (A) 0.3 %; Immature Grans, Automated 0.3 %; Lymphocytes # (A) 1.69 X 10*3/uL (0.90-5.00); Lymphocytes % (A) 26.5 %; Monocytes # (A) 0.58 X 10*3/uL (0.20-1.00); Monocytes % (A) 9.1 %; Neutrophils # (A) 4.04 X 10*3/uL (1.80-7.70); Neutrophils % (A) 63.5 %
--- NOTE | 2022-01-22 14:11 | P.CN ---
Psychiatric Consult - . Consult date: 01/22/22 Consult:: 01/22/22 12:57 IDENTIFYING DATA: This patient is a 46-year-old male, who currently lives with his mother in a house, single REASON FOR REFERRAL: Psychiatry was consulted for psychiatric evaluation HISTORY OF PRESENT ILLNESS: The patient has a long history of anxiety, bipolar disorder and COPD along with alcohol abuse. Patient has been admitted several times in the past to both the medical floors and also once to psychiatry. Patient presented to the hospital on 01/20 complaining of anxiety and also of shortness of breath. Patient was found to be septic and have lower lobe pneumonia showing new infiltrates. Patient's WBCs were elevated. Patient was positive for benzodiazepines on urine drug screen. Patient also tested positive for covid. Patient was seen lying in bed and agreeable com writer. He appeared to be waking up from a nap. He states that "I was feeling anxious at home" described having a panic attack. He claims that he received some Ativan and also Librium while here which helped "just a little bit". He continues to be fairly concrete and claims that at this time he feels "okay". He describes having shortness of breath earlier. He claims that "the meds are not helping". He admits to mild depression at this time. Claims to be sleeping well appetite is fair. At this time patient denies any suicidal or homical ideations, intent or plan. Patient denies any auditory, visual hallucinations and denies any paranoia or delusions. Patients admits to using cigarettes daily and alcohol PAST PSYCHIATRIC HISTORY: Patient has a a history of bipolar depression, anxiety and also benzodiazepine abuse. Patient is now on Seroquel and also on fluvoxamine. Klonopin was recently discontinued. Patient was last psychiatrically hospitalized in July 2021. Patient currently follows up with Dr. Samuel at [facility] as an outpatient. Patient denies any history of suicide attempts in the past. Patient has been sleeping on the medical floor several times by loan underwriter for consultation liaison. PAST MEDICAL HISTORY: As per medicine H&P. ALLERGIES: as per EMR. CHEMICAL DEPENDENCY HISTORY: as per HPI. FAMILY PSYCHIATRIC/SUBSTANCE USE HISTORY: denies SOCIAL HISTORY: Patient was born and raised in [facility]. Patient has been in care home in the past for DUIs. Patient apparently completed high school. He is single, has no kids and currently lives with his mother in a house. MENTAL STATUS EXAM: General Appearance: Patient appears to be overweight, disheveled appearance, several tattoos, older than stated age is alert, appears to be attempting to cooperate. Patient appears to have poor hygiene and grooming wearing hospital gown with fair and intense eye contact. Behavior: Patient is lying in bed however appears to be restless. Speech: Patient's speech is fluent and nonpressured. [place]. Mood/Affect: Patient reports their mood is "ok", affect is congruent and constricted. Suicidality/Homicidality: Patient denies having any suicidal or homicidal ideation intent or plan. Perceptions: Patient denies any visual hallucinations and denies any auditory hallucinations Though content/process: There is no evidence of any delusional thought content and thought process is linear and goal-directed. [place], focused on medications. Memory and concentration: AOX3, grossly intact for the purposes of this session. Can spell "WORLD" backwards Judgment and insight: Chronically Limited IMPRESSIONS: Bipolar disorder, depressed Anxiety disorder unspecified History of alcohol abuse COPD exacerbation Nicotine dependence PLAN: -At this time patient DOES NOT meet criteria for inpatient psychiatric admission. -Delirium precautions recommended with patient including - avoiding use of narcotics and IMPROVEMENT ANALYST sedatives, limit anticholinergic medications when possible, frequent re-orientation, minimize use of restraints, open window shades during the day and close them at night -Would recommend the following medication changes/additions: increase Prolixin to 3 mg twice a day for mood stabilization/psychosis. Vistaril 50 mg 3 times a day scheduled for anxiety. Librium and Ativan when necessary for alcohol withdrawal symptoms. Increase Zoloft to 100 mg daily for mood/anxiety. ingrezza daily for tardive dyskinesia. -ciwa protcol -Patiently currently follows up with Dr. Hauser at [facility]. -Communicated plan to patient's nurse -Will continue to follow along tomorrow. -Please contact with any questions. 01/22/22 14:06
--- NOTE | 2022-01-22 14:42 | CDI ---
Documentation Clarification Form Date: 01/22/2022 02:16:56 PM From: Argentina Spivey CCS, CCDS Admit Date: 01/20/2022 04:40:00 AM Patient Name: Olvin De La Rosa Visit Number: [id number] Discharge Date: ATTENTION: The Clinical Documentation Specialists (CDI) and [facility] Coding Staff appreciate your assistance in clarifying documentation. Please respond to the clarification below the line at the bottom and electronically sign. The CDI & [facility] Coding staff will review the response and follow-up if needed. Please note: Queries are made part of the Legal Health Record. If you have any questions, please contact the author of this message via ITS. Dr. Jr Fuller: Per the 01/20 ED Note: Patient meets Sepsis criteria, likely due to left lower lobe pneumonia. Clinical Impression: Hyponatremia, Anxiety, Sepsis, Left Lower Lobe Pneumonia. Sepsis is not documented elsewhere in the record. Additional clarification is requested. History/Risk Factors per the 01/20 H/P: COPD, Asthma, recent admit with COPD acute exacerbation, Hypertension, DM II, Smoker. Clinical Indicators: Presented to the ED on 01/20 with Anxiety. Does not appear to be ill or toxic, patient is quite jittery and anxious. No respiratory distress, bradycardic. Admitted for hyponatremia, meets sepsis criteria likely due to LLL pneumonia with new infiltrate on CXR, started on Zosyn & Zithromax, not hypotensive. Admit with Sepsis, Left Lower Lobe Pneumonia, Hyponatremia and Anxiety. 01/20 VS: T 99.0, 99.7, 100.2; P 113, 97 (regular), 105 (irregular); R 26, 16, 22 (shallow, tachypnea); BP 121/101, 89/53, 100/56; PO 92 RA, 98 2Lnc. BMI: 24.4 01/20 LAB: WBC 16.1, neutrophils 14.7, Lymphocytes 0.7; D Dimer 0.99; Na 126, Chloride 91, Creatinine 0.35, Glucose 168, Delta Bilirubin 0.4, CRP 15.4, Total Protein 6.1, Procalcitonin 0.62. 01/20 Blood cultures (preliminary) No growth after 48 hours. 01/20 COVID: Positive. 01/20 CXR: Bilateral lower lobe pneumonia and atelectasis which is much worse on the left side & appears new compared to old exam. 01/20 CT Chest: No evidence of pulmonary embolism. Bilateral patchy peripheral pulmonary edema consistent with interstitial pneumonia. Normal heart. Treatment 01/20: Telemetry, Blood cultures, Sputum culture, O2, IV Na Chl 1,000 mls @ 999 mls/hr q1H x2, IV Ativan 2 mg x1, IV Vit B1 100 mg x1, INH Ventolin 2.5 mg q2H/prn, IV Azithromycin 250 mls @ 250 mls/hr x1, IV Zosyn 100 mls @ 200 mls/hr x1, INH Duoneb 3 ml QID/prn. Please clarify if Sepsis is a valid diagnosis? [ ] Yes, Sepsis is present as evidence by (additional clinical support): [ ] No, Sepsis is ruled out [ ] Other (please specify diagnosis) [ ] Unable to determine (Template Last Revised: May 2020) Unable to determine MTDD
--- NOTE | 2022-01-22 15:51 | P.PN ---
Subjective Progress Note Date: 01/22/22 46-year-old male, who presented to the emergency department on January 20, at 2:00 in the morning, apparently complaining of anxiety. The patient has had recent admissions to the hospital, most recently in January. He is also had admissions in July and December. On his last admission in January, he came in with alcohol intoxication, and had a very high alcohol level, greater than 300, and required intubation for airway protection on January 01, with extubation on January 02. Currently, he's on 2 L of oxygen, and on saline at [facility]. He tested positive for coronavirus, and was admitted with a diagnosis of left lower lobe pneumonia. The patient is not a particularly good historian, but states that he's been having some shortness of breath, and cough. No fever or chills. I saw him on his last admission, when he was in the intensive care unit, after being extubated. White count 16.1, hemoglobin 16.2, hematocrit 47.1, and platelet count 295,000. D-dimer is 0.99. Sodium 126, potassium 4.7, chlorides 91, CO2 28, BUN 12, and creatinine 0.35. Glucose 168. C-reactive protein is 15.4. Albumin 3.7. Drug screen was positive for benzodiazepines. Alcohol level was less than 10. He did test positive for coronavirus. Chest x-ray shows bibasilar pneumonia, left greater than right. CTA showed no evidence of pulmonary embolism, but did show bilateral patchy infiltrates, consistent with pneumonia. Today's evaluation of 01/21/2022, the patient is resting comfortably in bed. No signs of any significant respiratory distress. He is diagnosed having mild Covid 19 pneumonia with hypoxic respiratory failure. His hypoxemia improved. After being on 2 L of oxygen by nasal cannula, the patient is currently on room air oxygen. He tested positive for Covid 19 and the patient was started on steroids and the patient is currently receiving Decadron 6 mg daily. He was also started on broad-spectrum antibiotics and the patient is currently on a combination of Zosyn and Zithromax. The patient otherwise is doing well. White cell count is down to 6.7. Hemoglobin is at 13.6. The sodium is at 140, BUN is at 7.4 with a creatinine of 0.4. The pro calcitonin level was at 0.62. Troponi ns were negative. LFTs were normal. LDH and CRP has not been measured. Urine drug screen was positive for benzodiazepines. The patient is seen today 01/22/2022 in follow-up on the regular medical floor. He is currently resting in bed. Awake, alert. Somewhat restless at times. Currently maintaining O2 saturations in the mid 90s on 4 L nasal cannula. Afebrile. Hemodynamically stable. Blood cultures revealed no growth. White count 6.3. Hemoglobin 14.6. Platelets 248. D-dimer 0.55. Sodium 138. Potassium 3.9. BUN 12.5. Creatinine 0.5. He is continued on albuterol, Symbicort, heparin for DVT prophylaxis. Antibiotics in the form of Zosyn. Continued on Decadron. Heparin for DVT prophylaxis. Objective - Vital Signs Vital signs: Vital Signs Temp 97.6 F 01/22/22 14:00 Pulse 84 01/22/22 14:00 Resp 18 01/22/22 14:00 BP 145/73 01/22/22 14:00 Pulse Ox 94 L 01/22/22 14:00 FiO2 Intake & Output 01/21/22 01/22/22 01/22/22 18:59 06:59 18:59 Intake Total 2520 450 Output Total 1000 Balance 2520 -550 Intake: Intake, IV Titration 1520 Amount Azithromycin 500 mg In 250 Sodium Chloride 0.9% 250 ml @ 250 mls/hr IVPB DAILY VINCE Rx#:[id number] Piperacillin-Tazobactam 3 100 .375 gm In Sodium Chloride 0.9% 100 ml @ 25 mls/hr IVPB Q8H [facility]CE Rx#: [id number] Sodium Chloride 0.9% 1, 1170 000 ml @ 130 mls/hr IV . Q7H42M [facility]INCE Rx#:[id number] Oral 1000 450 Output: Urine 1000 Other: Voiding Method Urinal Urinal # Voids 10 600 - Exam Alert, 38-year-old male patient. No acute distress, oriented 3. In no respiratory distress. Currently on 4 L nasal cannula . No audible wheezing, use of accessory muscles, or conversational dyspnea. The patient is not a particularly good historian. HEENT examination is grossly unremarkable. Neck supple. Full range of motion. No adenopathy thyromegaly or neck vein distention. Cardiovascular examination reveals regular rhythm rate. S1-S2 normal. No S3 or S4. No discernible murmur noted. Heart sounds are distant. Lungs reveal mostly clear breath sounds. Scattered rhonchi are noted. No wheezes or crackles. Breath sounds equal bilaterally. 4 L saturation is 97%. Abdomen soft bowel sounds are heard. No masses or tenderness. Extremities are intact. No cyanosis clubbing or edema. Skin is without rash or lesion. Neurologic examination is brief but nonfocal. - Labs CBC & Chem 7: 01/22/22 08:17 01/22/22 08:17 Labs: Abnormal Lab Results - Last 24 Hours (Table) 01/21/22 01/22/22 01/22/22 Range/Units 21:12 08:17 08:17 MPV 8.9 L (9.5-12.2) fL Eosinophils # 0.02 L (0.04-0.35) X 10*3/uL Carbon Dioxide 33.7 H (20.0-27.5) mmol/L Anion Gap 6.40 L (10.00-18.00) mmol/L Creatinine 0.5 L (0.6-1.5) mg/dL BUN/Creatinine Ratio 25.88 H (12.00-20.00) Ratio POC Glucose (mg/dL) 127 H (70-110) mg/dL C-Reactive Protein 6.30 H (0.00-0.80) mg/dL 01/22/22 Range/Units 11:21 MPV (9.5-12.2) fL Eosinophils # (0.04-0.35) X 10*3/uL Carbon Dioxide (20.0-27.5) mmol/L Anion Gap (10.00-18.00) mmol/L Creatinine (0.6-1.5) mg/dL BUN/Creatinine Ratio (12.00-20.00) Ratio POC Glucose (mg/dL) 116 H (70-110) mg/dL C-Reactive Protein (0.00-0.80) mg/dL Microbiology - Last 24 Hours (Table) 01/20/22 04:31 Blood Culture - Preliminary Blood No Growth after 48 hours 01/20/22 04:37 Blood Culture - Preliminary Blood No Growth after 48 hours Assessment and Plan Assessment: Acute hypoxic respiratory failure, essentially related to Covid 19 related pneumonia, improved and the patient is currently on 4 liters nasal cannula and the patient is also on Decadron. Mild elevation of the pro calcitonin. Placed on Zosyn and Zithromax. Acute Bibasilar pneumonia, left greater than right. This may reflect a community-acquired pneumonia, versus coronavirus associated pneumonia. I do favor Covid 19 related pneumonia. Patient is not particularly hypoxemic, and respiratory complaints are mild to moderate at best. Ventilator-dependent respiratory failure, January 2022, secondary to alcohol intoxication, with intubation on January 01, and extubation on January 02. History of COPD/asthma. History of diabetes mellitus. History of gastroesophageal reflux disease. History of hypertension. History of spina bifida. History of pancreatitis. History of tardive dyskinesia. History of bipolar disorder. Plan: The patient was seen and evaluated Currently stable from the pulmonary standpoint Continue the current treatment plan Check the FiO2 as tolerated Home once cleared by medicine We will continue to follow I have personally seen and examined the patient, performed the documentation and the assessment and plan as written. Number of minutes spent on the visit: 10. This is a joint evaluation that was done along with the nurse practitioner. The patient is stable. Despite Covid 19 infection, the patient is having no respiratory distress. The patient is calm and comfortable and the patient is on room air oxygen for now. No nausea. No vomiting. No chest pain. No other complaint otherwise for now. His oral intake is quite diminished. Otherwise, no other complaints or concerns for now. The patient was taken off the Zithromax.
[2022-01-22 16:21] LABS: Glucose,Whole Blood 216 mg/dL (70-110)
[2022-01-22 20:28] LABS: Glucose,Whole Blood 358 mg/dL (70-110)
[2022-01-22] MEDS ORDERED: INGREZZA 80 MG PO SCH (21:00)
[2022-01-22 21:52] LABS: Glucose,Whole Blood 142 mg/dL (70-110)
[2022-01-22] MEDS: ATORVASTATIN 20 MG TAB PO SCH (21:56)
[2022-01-23] MEDS: SODIUM CHLORIDE 0.9% 1,000 ML IV SCH ×2 (00:07→17:18)
[2022-01-23] MEDS: HEPARIN SODIUM,PORCINE/PF 5,000 UNIT/0.5 ML SYRINGE SQ SCH ×3 (00:15→17:18)
[2022-01-23 00:27] LABS: Glucose,Whole Blood 104 mg/dL (70-110)
--- NOTE | 2022-01-23 02:30 | PN ---
PROGRESS NOTE DATE OF SERVICE: 01/21/2022 SUBJECTIVE: This is a 46-year-old gentleman who was admitted with COPD acute exacerbation, had COVID also. The patient also apparently rather combative and restless, being sedated at this time. OBJECTIVE: VITAL SIGNS: Pulse is 87, blood pressure 143/80, respirations 22, pulse ox 97% on 4 L. HEENT: Conjunctivae normal. RESPIRATIONS: Breath sounds diminished at the bases, a few scattered rhonchi and crackles. ABDOMEN: Soft. NERVOUS SYSTEM: Nonfocal. LABS: Reviewed. ASSESSMENT: 1. Chronic obstructive pulmonary disease exacerbation with acute left lower pneumonia with failure of outpatient treatment. 2. Acute COVID-19 infection. 3. Diabetes mellitus, type 2. 4. Hypertension. 5. Multiple medical issues. 6. Anxiety. RECOMMENDATIONS: Recommended to continue current management and continue symptomatic treatment. Continue with antibiotics. I would also recommend evaluation for D-dimer which is normal and the patient is on IV Zosyn. Repeat chest x-ray. Further recommendations to follow. MMODL / IJN: [id number] /
[2022-01-23] MEDS: PIPERACILLIN-TAZOBACTAM 3.375 GM in SODIUM CHLORIDE 0.9% 100 ML IVPB SCH ×2 (05:11→13:59)
[2022-01-23 06:13] LABS: Glucose,Whole Blood 97 mg/dL (70-110)
[2022-01-23] MEDS: SYMBICORT 160-4.5 MCG INHALER INHALATION SCH (07:56)
[2022-01-23] MEDS: hydrOXYzine pamoate 25 MG CAP PO SCH ×2 (08:23→18:11)
[2022-01-23] MEDS: LORazepam 1 MG TAB PO PRN (08:23)
[2022-01-23] MEDS: dexAMETHasone 2 MG TAB PO SCH (08:23)
[2022-01-23] MEDS: guaiFENesin 600 MG TABLET.ER PO SCH (08:23)
[2022-01-23] MEDS: FOLIC ACID 1 MG TAB PO SCH (08:24)
[2022-01-23] MEDS: metFORMIN 500 MG TAB PO SCH (08:24)
[2022-01-23] MEDS: CHOLECALCIFEROL 125 MCG (5000 IU) TABLET PO SCH (08:24)
[2022-01-23] MEDS: THIAMINE 100 MG TAB PO SCH (08:24)
[2022-01-23] MEDS: FUROSEMIDE 40 MG TAB PO SCH (08:24)
[2022-01-23] MEDS: NALTREXONE HCL 50 MG TAB PO SCH (08:24)
[2022-01-23] MEDS: DAPAGLIFLOZIN PROPANEDIOL 10 MG TABLET PO SCH (08:25)
[2022-01-23] MEDS ORDERED: haloperidoL 5 MG TAB PO PRN (08:38)
[2022-01-23] MEDS ORDERED: HALOPERIDOL LACTATE 5 MG/ML 1 ML VIAL IM PRN (08:38)
--- NOTE | 2022-01-23 08:49 | XR ---
EXAMINATION TYPE: XR chest 1V portable DATE OF EXAM: 01/23/2022 COMPARISON: 01/21/2022 HISTORY: Shortness of breath TECHNIQUE: Single frontal view of the chest is obtained. FINDINGS: Patchy bilateral infiltrates stable. No sizable pleural effusion. No pneumothorax. Limited inspiration. Heart size normal. Arthropathy of the shoulders. IMPRESSION: Stable patchy bilateral infiltrates.
[2022-01-23] MEDS ORDERED: SERTRALINE 100 MG TAB PO SCH (09:00)
[2022-01-23 10:23] LABS: HCT 44.2 % (39.6-50.0); HGB 14.5 g/dL (13.0-17.0); MCH 29.2 pg (27.0-32.0); MCHC 32.8 g/dL (32.0-37.0); MCV 88.9 fL (80.0-97.0); Mean Platelet Volume 9.2 fL (9.5-12.2); NRBC Per 100 WBC 0 /100 WBCS (0.0-0.0); Platelet Count 284 X 10*3/uL (140-440); RBC 4.97 X 10*6/uL (4.40-5.60); WBC 7.82 X 10*3/uL (4.50-10.00)
[2022-01-23 10:53] LABS: Basophils # (A) 0.03 X 10*3/uL (0.00-0.10); Basophils % (A) 0.4 %; Eosinophils # (A) 0.05 X 10*3/uL (0.04-0.35); Eosinophils % (A) 0.6 %; Immature Grans, Automated 0.5 %; Lymphocytes # (A) 1.98 X 10*3/uL (0.90-5.00); Lymphocytes % (A) 25.3 %; Monocytes # (A) 0.66 X 10*3/uL (0.20-1.00); Monocytes % (A) 8.4 %; Neutrophils # (A) 5.06 X 10*3/uL (1.80-7.70); Neutrophils % (A) 64.8 %; RBC Morphology NORMAL
[2022-01-23 11:26] LABS: Glucose,Whole Blood 142 mg/dL (70-110)
[2022-01-23 11:50] LABS: African American GFR (CKD) 148.5 (60.0-200.0); Anion Gap 8.1 mmol/L (10.00-18.00); BUN/Creat Ratio 28.8 Ratio (12.00-20.00); Blood Urea Nitrogen 14.4 mg/dL (9.0-27.0); Calcium 9.3 mg/dL (8.7-10.3); Carbon Dioxide 30.9 mmol/L (20.0-27.5); Non-African American GFR(CKD) 128.1 (60.0-200.0); Potassium 3.8 mmol/L (3.5-5.5)
[2022-01-23] MEDS ORDERED: INSULIN ASPART (NovoLOG) 100 UNIT/ML VIAL SQ SCH ×2 (12:30→21:44)
--- NOTE | 2022-01-23 13:58 | P.PN ---
Progress Note - Text Progress Note Date: 01/23/22 Interval History: Patient was seen today for psychiatric follow-up on the medical floors. Patient apparently was attempting to sign himself out AMA however was petitioned by his public guardian and also certed by the hospitalist. Patient was seen today laying in bed and agreeable to speak to display card writer. He appears to have improvement in anxiety and also restlessness. He has been taking his medications as prescribed. He states that he is not experiencing much anxiety at this time. He is denying any depression at this time. He was directable and following commands. he appeared to be future oriented and talking about going home. states that he is breathing better. continues to have limited chronic insight. He states that he slept fairly last night. He wants to go home today. He states that he wants to live for his mother and himself. At this time patient denies any suicidal or homical ideations, intent or plan. Patient denies any auditory, visual hallucinations and denies any paranoia or delusions. Patient denies any side effects from the medications and has been compliant with meds. Mental Status Exam: General Appearance: Patient appears to be overweight, improving appearance, several tattoos, older than stated age is alert, appears to be attempting to cooperate. Patient appears to have poor hygiene and grooming wearing hospital gown with fair and intense eye contact. restless at times. Behavior: Patient is lying in bed however appears to be less restless. Speech: Patient's speech is fluent and nonpressured. [place]. Mood/Affect: Patient reports their mood is "fine", affect is congruent and constricted. Suicidality/Homicidality: Patient denies having any suicidal or homicidal ideation intent or plan. Perceptions: Patient denies any visual hallucinations and denies any auditory hallucinations Though content/process: There is no evidence of any delusional thought content and thought process is linear and goal-directed. [place], focused on discharge today. Memory and concentration: AOX3, grossly intact for the purposes of this session Judgment and insight: Chronically Limited, improved mildly IMPRESSIONS: Bipolar disorder, depressed Anxiety disorder unspecified History of alcohol abuse COPD exacerbation Nicotine dependence PLAN: -At this time patient DOES NOT meet criteria for inpatient psychiatric admission. -Delirium precautions recommended with patient including - avoiding use of narcotics and DOOR CLAMP OPERATOR sedatives, limit anticholinergic medications when possible, frequent re-orientation, minimize use of restraints, open window shades during the day and close them at night -Would recommend the following medication changes/additions: continues Prolixin to 3 mg twice a day for mood stabilization/psychosis, consider WEINER as an outaptient through [facility]. Vistaril 50 mg 3 times a day scheduled for anxiety. Zoloft to 100 mg daily for mood/anxiety, this can be increased as an outpatient. ingrezza daily for tardive dyskinesia. -Patiently currently follows up with Dr. Hauser at [facility]. consider putting patienbt on ACT team, -Communicated plan to patient's nurse. Honing Machine Operator Semiautomatic also spoke with patients public colin Cedeño over the phone and explained his condition and his chronically poor insight/judgment. He will remain a chronic risk of harm due to his limited insight and judgment. He is not displaying much psychotic sx or thoughts of self harm/harm to others at this moment. -display card writer completed a negative cert and placed in chart. -at this time psychiatry will sign off. -Please contact with any questions.
[2022-01-23 15:36] VITALS: BP 146/77; PULSE 76; RESP 17; TEMP 98.1
--- NOTE | 2022-01-23 16:32 | P.PN ---
Subjective Progress Note Date: 01/23/22 46-year-old male, who presented to the emergency department on January 20, at 2:00 in the morning, apparently complaining of anxiety. The patient has had recent admissions to the hospital, most recently in January. He is also had admissions in July and December. On his last admission in January, he came in with alcohol intoxication, and had a very high alcohol level, greater than 300, and required intubation for airway protection on January 01, with extubation on January 02. Currently, he's on 2 L of oxygen, and on saline at [facility]. He tested positive for coronavirus, and was admitted with a diagnosis of left lower lobe pneumonia. The patient is not a particularly good historian, but states that he's been having some shortness of breath, and cough. No fever or chills. I saw him on his last admission, when he was in the intensive care unit, after being extubated. White count 16.1, hemoglobin 16.2, hematocrit 47.1, and platelet count 295,000. D-dimer is 0.99. Sodium 126, potassium 4.7, chlorides 91, CO2 28, BUN 12, and creatinine 0.35. Glucose 168. C-reactive protein is 15.4. Albumin 3.7. Drug screen was positive for benzodiazepines. Alcohol level was less than 10. He did test positive for coronavirus. Chest x-ray shows bibasilar pneumonia, left greater than right. CTA showed no evidence of pulmonary embolism, but did show bilateral patchy infiltrates, consistent with pneumonia. Today's evaluation of 01/21/2022, the patient is resting comfortably in bed. No signs of any significant respiratory distress. He is diagnosed having mild Covid 19 pneumonia with hypoxic respiratory failure. His hypoxemia improved. After being on 2 L of oxygen by nasal cannula, the patient is currently on room air oxygen. He tested positive for Covid 19 and the patient was started on steroids and the patient is currently receiving Decadron 6 mg daily. He was also started on broad-spectrum antibiotics and the patient is currently on a combination of Zosyn and Zithromax. The patient otherwise is doing well. White cell count is down to 6.7. Hemoglobin is at 13.6. The sodium is at 140, BUN is at 7.4 with a creatinine of 0.4. The pro calcitonin level was at 0.62. Troponi ns were negative. LFTs were normal. LDH and CRP has not been measured. Urine drug screen was positive for benzodiazepines. The patient is seen today 01/22/2022 in follow-up on the regular medical floor. He is currently resting in bed. Awake, alert. Somewhat restless at times. Currently maintaining O2 saturations in the mid 90s on 4 L nasal cannula. Afebrile. Hemodynamically stable. Blood cultures revealed no growth. White count 6.3. Hemoglobin 14.6. Platelets 248. D-dimer 0.55. Sodium 138. Potassium 3.9. BUN 12.5. Creatinine 0.5. He is continued on albuterol, Symbicort, heparin for DVT prophylaxis. Antibiotics in the form of Zosyn. Continued on Decadron. Heparin for DVT prophylaxis. The patient is seen today 01/23/2022 in follow-up on the regular medical floor. He is currently maintaining O2 saturations in the 90s on room air. Follow-up chest x-ray reveals stable patchy bilateral infiltrates. Blood cultures reveal no growth. White count 7.8. Hemoglobin 14.5. Platelets 284. Sodium 137. Potassium 3.8. BUN 14. Creatinine 0.5. Glucose 98. He is continued on Symbicort, albuterol. Heparin for DVT prophylaxis. Remains on Decadron. He is currently up ambulating in his room. Restless. Requesting to go home. Psychiatric services are on the case. Objective - Vital Signs Vital signs: Vital Signs Temp 98.1 F 01/23/22 14:00 Pulse 76 01/23/22 14:00 Resp 17 01/23/22 14:00 BP 146/77 01/23/22 14:00 Pulse Ox 95 01/23/22 14:00 FiO2 Intake & Output 01/22/22 01/23/22 01/23/22 18:59 06:59 18:59 Intake Total 500 Output Total 900 950 Balance -900 -450 Intake: Oral 500 Output: Urine 900 950 Other: Voiding Method Urinal Urinal - Exam Alert, 38-year-old male patient. No acute distress, oriented 3. In no respiratory distress. Currently on room air . He is restless. The patient is not a particularly good historian. HEENT examination is grossly unremarkable. Neck supple. Full range of motion. No adenopathy thyromegaly or neck vein distention. Cardiovascular examination reveals regular rhythm rate. S1-S2 normal. No S3 or S4. No discernible murmur noted. Heart sounds are distant. Lungs reveal mostly clear breath sounds. Scattered rhonchi are noted. No wheezes or crackles. Breath sounds equal bilaterally. . Abdomen soft bowel sounds are heard. No masses or tenderness. Extremities are intact. No cyanosis clubbing or edema. Skin is without rash or lesion. Neurologic examination is brief but nonfocal. - Labs CBC & Chem 7: 01/23/22 07:09 01/23/22 07:09 Labs: Abnormal Lab Results - Last 24 Hours (Table) 01/22/22 01/22/22 01/23/22 Range/Units 20:27 21:49 07:09 MPV 9.2 L (9.5-12.2) fL Carbon Dioxide (20.0-27.5) mmol/L Anion Gap (10.00-18.00) mmol/L Creatinine (0.6-1.5) mg/dL BUN/Creatinine Ratio (12.00-20.00) Ratio POC Glucose (mg/dL) 358 H 142 H (70-110) mg/dL 01/23/22 01/23/22 Range/Units 07:09 11:24 MPV (9.5-12.2) fL Carbon Dioxide 30.9 H (20.0-27.5) mmol/L Anion Gap 8.10 L (10.00-18.00) mmol/L Creatinine 0.5 L (0.6-1.5) mg/dL BUN/Creatinine Ratio 28.80 H (12.00-20.00) Ratio POC Glucose (mg/dL) 142 H (70-110) mg/dL Microbiology - Last 24 Hours (Table) 01/20/22 04:37 Blood Culture - Preliminary Blood No Growth after 72 hours 01/20/22 04:31 Blood Culture - Preliminary Blood No Growth after 72 hours Assessment and Plan Assessment: Acute hypoxic respiratory failure, essentially related to Covid 19 related pneumonia, improved and the patient is currently on room air and the patient is on Decadron. Mild elevation of the pro calcitonin. Placed on Zosyn. Follow-up chest x-ray revealed stable patchy infiltrates. Acute bibasilar pneumonia, left greater than right. This may reflect a community-acquired pneumonia, versus coronavirus associated pneumonia. Favor Covid 19 related pneumonia. Delirium, psychiatry consult placed. Ventilator-dependent respiratory failure, January 2022, secondary to alcohol intoxication, with intubation on January 01, and extubation on January 02. History of COPD/asthma. History of diabetes mellitus. History of gastroesophageal reflux disease. History of hypertension. History of spina bifida. History of pancreatitis. History of tardive dyskinesia. History of bipolar disorder. Plan: The patient was seen and evaluated Currently stable from the pulmonary standpoint Continue the current treatment plan Discharge planning in place We will see as needed I have personally seen and examined the patient, performed the documentation and the assessment and plan as written. Number of minutes spent on the visit: 10. Evaluation that was done along with the nurse practitioner. I agree on the above-mentioned plan. The patient was seen in conjunction with the SELF CONTAINED BEHAVIOR UNIT TEACHER. This evaluation was done in more than 20 minutes.
[2022-01-23 16:34] LABS: Glucose,Whole Blood 142 mg/dL (70-110)
--- NOTE | 2022-01-23 23:13 | DS ---
DISCHARGE SUMMARY FINAL DIAGNOSES: 1. Chronic obstructive pulmonary disease acute exacerbation with acute left lower lobe pneumonia with failure of outpatient treatment. 2. Acute COVID-19 infection. 3. Diabetes mellitus, type 2. 4. Hypertension. 5. Multiple medical issues. 6. Anxiety. DISCHARGE DISPOSITION: The patient will be discharged in stable condition with guarded prognosis. Discharge cleared by Pulmonology, Psychiatry as well as Infectious Disease. PHYSICAL EXAMINATION: VITAL SIGNS: Stable. CARDIOVASCULAR: S1, S2. RESPIRATION: Breath sounds diminished at the bases. Few scattered rhonchi. DISCHARGE INSTRUCTIONS: The patient is being discharged in stable condition. Guarded prognosis. Follow up with Dr. Anne Sosa. Followup with Psych. Followup with Infectious Disease is recommended. Continue with home medications plus Augmentin b.i.d. for 1 week. MMODL / IJN: [id number] /
--- NOTE | 2022-01-30 23:28 | P.PN ---
Subjective Progress Note Date: 01/22/22 Principal diagnosis: Pneumonia Patient is a 46-year-old male with multiple comorbidities including COPD diabetes mellitus presenting to the hospital concerning for anxiety attack he did have increasing shortness breath and cough and low-grade fever chills x- ray with possible left-sided pneumonia and the patient also have a positive covid test On today's evaluation that is 01/22/2022 the patient remains to be afebrile, the patient is currently breathing comfortably on 4 L nasal cannula, the patient denies any chest pain no worsening cough or sputum production no abdominal pain no diarrhea Objective - Vital Signs Vital signs: Vital Signs Temp 98.6 F 01/22/22 10:11 Pulse 87 01/22/22 10:11 Resp 20 01/22/22 10:11 BP 143/88 01/22/22 10:11 Pulse Ox 97 01/22/22 10:11 FiO2 Intake & Output 01/21/22 01/22/22 01/22/22 18:59 06:59 18:59 Intake Total 2520 450 Output Total 1000 Balance 2520 -550 Intake: Intake, IV Titration 1520 Amount Azithromycin 500 mg In 250 Sodium Chloride 0.9% 250 ml @ 250 mls/hr IVPB DAILY [facility] Rx#:[id number] Piperacillin-Tazobactam 3 100 .375 gm In Sodium Chloride 0.9% 100 ml @ 25 mls/hr IVPB Q8H [facility] Rx#: [id number] Sodium Chloride 0.9% 1, 1170 000 ml @ 130 mls/hr IV . Q7H42M [facility] Rx#:[id number] Oral 1000 450 Output: Urine 1000 Other: Voiding Method Urinal Urinal # Voids 10 600 - Exam GENERAL DESCRIPTION: Middle-aged male lying in bed in no distress RESPIRATORY SYSTEM: Unlabored breathing , decreased breath sounds at bases HEART: S1 S2 regular rate and rhythm , ABDOMEN: Soft , no tenderness EXTREMITIES: No edema feet - Labs CBC & Chem 7: 01/23/22 07:09 01/23/22 07:09 Labs: Abnormal Lab Results - Last 24 Hours (Table) 01/21/22 01/22/22 01/22/22 Range/Units 21:12 08:17 08:17 MPV 8.9 L (9.5-12.2) fL Eosinophils # 0.02 L (0.04-0.35) X 10*3/uL Carbon Dioxide 33.7 H (20.0-27.5) mmol/L Anion Gap 6.40 L (10.00-18.00) mmol/L Creatinine 0.5 L (0.6-1.5) mg/dL BUN/Creatinine Ratio 25.88 H (12.00-20.00) Ratio POC Glucose (mg/dL) 127 H (70-110) mg/dL C-Reactive Protein 6.30 H (0.00-0.80) mg/dL 01/22/22 Range/Units 11:21 MPV (9.5-12.2) fL Eosinophils # (0.04-0.35) X 10*3/uL Carbon Dioxide (20.0-27.5) mmol/L Anion Gap (10.00-18.00) mmol/L Creatinine (0.6-1.5) mg/dL BUN/Creatinine Ratio (12.00-20.00) Ratio POC Glucose (mg/dL) 116 H (70-110) mg/dL C-Reactive Protein (0.00-0.80) mg/dL Microbiology - Last 24 Hours (Table) 01/20/22 04:31 Blood Culture - Preliminary Blood No Growth after 48 hours 01/20/22 04:37 Blood Culture - Preliminary Blood No Growth after 48 hours Assessment and Plan (1) Left lower lobe pneumonia Status: Acute Code(s): J18.9 - PNEUMONIA, UNSPECIFIED ORGANISM SNOMED Code(s): 523602896 Plan: 1patient presented to hospital with anxiety attack complaining of increasing shortness of breath he also have a cough in this patient did have elevated white count with a predominant left-sided pneumonia and has been into the hospital concerning for possible gram-negative versus community-acquired pneumonia. 2patient also tested positive for COVID-19 and may be contributing to some of his symptoms. 3patient seemed to have shown some clinical improvement and will continue Zosyn while waiting for the culture to finalize. Time with Patient: Less than 30
--- NOTE | 2022-01-30 23:29 | P.PN ---
Subjective Progress Note Date: 01/23/22 Principal diagnosis: Pneumonia Patient is a 46-year-old male with multiple comorbidities including COPD diabetes mellitus presenting to the hospital concerning for anxiety attack he did have increasing shortness breath and cough and low-grade fever chills x- ray with possible left-sided pneumonia and the patient also have a positive covid test On today's evaluation that is 01/23/2022 the patient continues to be afebrile, the patient is currently breathing comfortably on room air, the patient denies any chest pain , the patient cough has decreased in intensity not bringing up any sputum no abdominal pain no diarrhea Objective - Vital Signs Vital signs: Vital Signs Temp 98.4 F 01/23/22 07:48 Pulse 87 01/23/22 07:48 Resp 18 01/23/22 07:48 BP 162/96 01/23/22 07:48 Pulse Ox 93 L 01/23/22 07:48 FiO2 Intake & Output 01/22/22 01/23/22 01/23/22 18:59 06:59 18:59 Intake Total 500 Output Total 900 950 Balance -900 -450 Intake: Oral 500 Output: Urine 900 950 Other: Voiding Method Urinal Urinal - Exam GENERAL DESCRIPTION: Middle-aged male lying in bed in no distress RESPIRATORY SYSTEM: Unlabored breathing , decreased breath sounds at bases HEART: S1 S2 regular rate and rhythm , ABDOMEN: Soft , no tenderness EXTREMITIES: No edema feet - Labs CBC & Chem 7: 01/23/22 07:09 01/23/22 07:09 Labs: Abnormal Lab Results - Last 24 Hours (Table) 01/22/22 01/22/22 01/22/22 Range/Units 16:19 20:27 21:49 MPV (9.5-12.2) fL Carbon Dioxide (20.0-27.5) mmol/L Anion Gap (10.00-18.00) mmol/L Creatinine (0.6-1.5) mg/dL BUN/Creatinine Ratio (12.00-20.00) Ratio POC Glucose (mg/dL) 216 H 358 H 142 H (70-110) mg/dL 01/23/22 01/23/22 01/23/22 Range/Units 07:09 07:09 11:24 MPV 9.2 L (9.5-12.2) fL Carbon Dioxide 30.9 H (20.0-27.5) mmol/L Anion Gap 8.10 L (10.00-18.00) mmol/L Creatinine 0.5 L (0.6-1.5) mg/dL BUN/Creatinine Ratio 28.80 H (12.00-20.00) Ratio POC Glucose (mg/dL) 142 H (70-110) mg/dL Microbiology - Last 24 Hours (Table) 01/20/22 04:37 Blood Culture - Preliminary Blood No Growth after 72 hours 01/20/22 04:31 Blood Culture - Preliminary Blood No Growth after 72 hours Assessment and Plan (1) Left lower lobe pneumonia Status: Acute Code(s): J18.9 - PNEUMONIA, UNSPECIFIED ORGANISM SNOMED Code(s): 835730984 Plan: 1patient presented to hospital with anxiety attack complaining of increasing shortness of breath he also have a cough in this patient did have elevated white count with a predominant left-sided pneumonia and has been into the hospital concerning for possible gram-negative versus community-acquired pneumonia. 2patient also tested positive for COVID-19 and may be contributing to some of his symptoms. 3patient has shown clinical improvement he will finish therapy short course of oral Augmentin on discharge and close outpatient follow-up Time with Patient: Less than 30
--- NOTE | 2022-01-31 14:39 | CDI ---
Documentation Clarification Form Date: 01/22/2022 02:16:00 PM From: Argentina Spivey CCS, CCDS Admit Date: 01/20/2022 04:40:00 AM Patient Name: Olvin De La Rosa Visit Number: [id number] Discharge Date: 01/23/2022 05:54:00 PM ATTENTION: The Clinical Documentation Specialists (CDI) and [facility] Coding Staff appreciate your assistance in clarifying documentation. Please respond to the clarification below the line at the bottom and electronically sign. The CDI & [facility] Coding staff will review the response and follow-up if needed. Please note: Queries are made part of the Legal Health Record. If you have any questions, please contact the author of this message via ITS. Dr. Jr uFller: Per the 01/20 ED Note: Patient meets Sepsis criteria, likely due to left lower lobe pneumonia. Clinical Impression: Hyponatremia, Anxiety, Sepsis, Left Lower Lobe Pneumonia. Sepsis is not documented elsewhere in the record. Additional clarification is requested. History/Risk Factors per the 01/20 H/P: COPD, Asthma, recent admit with COPD acute exacerbation, Hypertension, DM II, Smoker. Clinical Indicators: Presented to the ED on 01/20 with Anxiety. Does not appear to be ill or toxic, patient is quite jittery and anxious. No respiratory distress, bradycardic. Admitted for hyponatremia, meets sepsis criteria likely due to LLL pneumonia with new infiltrate on CXR, started on Zosyn & Zithromax, not hypotensive. Admit with Sepsis, Left Lower Lobe Pneumonia, Hyponatremia and Anxiety. 01/20 VS: T 99.0, 99.7, 100.2; P 113, 97 (regular), 105 (irregular); R 26, 16, 22 (shallow, tachypnea); BP 121/101, 89/53, 100/56; PO 92 RA, 98 2Lnc. BMI: 24.4 01/20 LAB: WBC 16.1, neutrophils 14.7, Lymphocytes 0.7; D Dimer 0.99; Na 126, Chloride 91, Creatinine 0.35, Glucose 168, Delta Bilirubin 0.4, CRP 15.4, Total Protein 6.1, Procalcitonin 0.62. 01/20 Blood cultures (preliminary) No growth after 48 hours. 01/20 COVID: Positive. 01/20 CXR: Bilateral lower lobe pneumonia and atelectasis which is much worse on the left side & appears new compared to old exam. 01/20 CT Chest: No evidence of pulmonary embolism. Bilateral patchy peripheral pulmonary edema consistent with interstitial pneumonia. Normal heart. Treatment 01/20: Telemetry, Blood cultures, Sputum culture, O2, IV Na Chl 1,000 mls @ 999 mls/hr q1H x2, IV Ativan 2 mg x1, IV Vit B1 100 mg x1, INH Ventolin 2.5 mg q2H/prn, IV Azithromycin 250 mls @ 250 mls/hr x1, IV Zosyn 100 mls @ 200 mls/hr x1, INH Duoneb 3 ml QID/prn. Please clarify if Sepsis is a valid diagnosis? [ ] Yes, Sepsis is present as evidence by (additional clinical support): [ ] No, Sepsis is ruled out [ ] Other (please specify diagnosis) [ ] Unable to determine (Template Last Revised: May 2020) No, Sepsis is ruled out MTDD
== END 2022-01-23 17:54 | disposition home or self-care (01) | DRG 177 ==
LOC: EC 02:01 → 4SSUR 04:40
PROVIDERS: ADMIT Hospitalist; ATTEND Hospitalist
DX: U07.1 COVID-19 (principal); J12.82 Pneumonia due to coronavirus disease 2019; J96.01 Acute respiratory failure with hypoxia; J45.901 Unspecified asthma with (acute) exacerbation; E87.1 Hypo-osmolality and hyponatremia; J44.0 Chronic obstructive pulmonary disease with (acute) lower respiratory infection; J44.1 Chronic obstructive pulmonary disease with (acute) exacerbation; F31.30 Bipolar disorder, current episode depressed, mild or moderate severity, unspecified; Q05.9 Spina bifida, unspecified; E11.9 Type 2 diabetes mellitus without complications; F41.9 Anxiety disorder, unspecified; G24.01 Drug induced subacute dyskinesia; F90.9 Attention-deficit hyperactivity disorder, unspecified type; I10 Essential (primary) hypertension; K21.9 Gastro-esophageal reflux disease without esophagitis; M48.00 Spinal stenosis, site unspecified; E66.3 Overweight; Z68.24 Body mass index [BMI] 24.0-24.9, adult; L98.9 Disorder of the skin and subcutaneous tissue, unspecified; F17.210 Nicotine dependence, cigarettes, uncomplicated; Z71.6 Tobacco abuse counseling; Z79.51 Long term (current) use of inhaled steroids; Z79.84 Long term (current) use of oral hypoglycemic drugs; Z79.899 Other long term (current) drug therapy; Z91.81 History of falling
CPT/HCPCS: 36415; 70450; 71045; 71275; 80048; 80053; 80143; 80179; 80306; 80320; 82248; 83605; 83615; 83880; 84145; 84484; 85025; 85379; 86140; 87040; 87502; 87635; 93005; 94640; 96361; 96365; 96366; 96367; 96368; 96375; 99285

== ENCOUNTER 2022-02-19 00:52 | Emergency (ER) | payer MEDICARE, OTHER ==
[2022-02-19 01:05] VITALS: TEMP 98
[2022-02-19 01:06] VITALS: BP 141/101; PULSE 102; RESP 16
[2022-02-19] MEDS ORDERED: LORazepam 1 MG TAB PO STA (01:20)
--- NOTE | 2022-02-19 01:21 | ED ---
Anxiety HPI - General Chief Complaint: Psychiatric Symptoms Stated Complaint: Anxiety Time Seen by Provider: 02/19/22 01:00 Source: patient, EMS, RN notes reviewed, old records reviewed Mode of arrival: EMS Limitations: no limitations - History of Present Illness Initial Comments: This is a 46-year-old male to the emergency department for evaluation. Mildly poor history but complains of severe anxiety stress stress reaction. Patient is not homicidal or suicidal drug or alcohol abuse. History of anxiety MD Complaint: anxiety, heart racing -: unknown Symptoms: dyspnea, chest pain, palpitations, sense of impending doom Place: home Previous History of Same: Yes Severity: moderate Quality: worsening Provoking factors: emotional stress Improves With: nothing Worsens With: nothing Associated symptoms: other (0) - Related Data Home Medications: Home Medications Medication Instructions Recorded Confirmed Atorvastatin Calcium [Lipitor] 20 mg PO HS 12/31/20 01/20/22 Empagliflozin [Jardiance] 25 mg PO DAILY 12/31/20 01/20/22 metFORMIN HCL [Glucophage] 1,000 mg PO BID 12/31/20 01/20/22 Cholecalciferol [Vitamin D3 (125 125 mcg PO DAILY 12/28/21 01/20/22 Mcg = 5000 Iu)] Ipratropium-Albuterol Nebulize 3 ml INHALATION RT-QID PRN 12/28/21 01/20/22 [Duoneb 0.5 mg-3 mg/3 ml Soln] Albuterol Sulfate [Ventolin HFA] 1 - 2 puff INHALATION RT-QID PRN 01/20/22 01/20/22 Ipratropium-Albuterol Nebulize 3 ml INHALATION RT-Q2H PRN 01/20/22 01/20/22 [Duoneb 0.5 mg-3 mg/3 ml Soln] Naltrexone HCl [Revia] 50 mg PO DAILY 01/20/22 01/20/22 Sertraline [Zoloft] 50 mg PO DAILY 01/20/22 01/20/22 Valbenazine Tosylate [Ingrezza] 80 mg PO HS 01/20/22 01/20/22 fluPHENAZine [Prolixin] 3 mg PO HS 01/20/22 01/20/22 hydrOXYzine pamoate [Vistaril] 50 mg PO TID 01/20/22 01/20/22 Previous Rx's Medication Instructions Recorded Budesonide-Formot 160-4.5 Mcg 2 puff INHALATION RT-BID each 08/03/21 [Symbicort 160-4.5 Mcg Inhaler] Furosemide [Lasix] 40 mg PO DAILY tab 08/03/21 Amoxic-Pot Clav 875-125Mg 1 tab PO BID 7 Days #14 tab 01/23/22 [Augmentin 875-125] Allergies/Adverse Reactions: Allergies Allergy/AdvReac Type Severity Reaction Status Date / Time metals Allergy Rash/Hives, Uncoded 01/20/22 13:22 swelling Review of Systems ROS Statement: Those systems with pertinent positive or pertinent negative responses have been documented in the HPI. ROS Other: All systems not noted in ROS Statement are negative. Past Medical History Past Medical History: Asthma, COPD, Diabetes Mellitus, GERD/Reflux, Hypertension, Skin Disorder Additional Past Medical History / Comment(s): hx spina bifida, spinal stenosis, pancreatitis. scrotal wound (to start on antibiotics 10/31/15), migraines, uses wheelchair-can ambulate but does fall at times. Tardive Dyskinesia History of Any Multi-Drug Resistant Organisms: None Reported Past Surgical History: Back Surgery Additional Past Surgical History / Comment(s): back surgery- 3 rods, 4 screws Past Anesthesia/Blood Transfusion Reactions: No Reported Reaction Past Psychological History: ADD/ADHD, Anxiety, Bipolar Smoking Status: Current every day smoker Past Alcohol Use History: Abuse Past Drug Use History: None Reported - Past Family History Mother Family Medical History: Cancer Father Family Medical History: Cancer General Exam Limitations: no limitations General appearance: anxious Head exam: Present: atraumatic, normocephalic, normal inspection Eye exam: Present: normal appearance, PERRL, EOMI. Absent: scleral icterus, conjunctival injection, periorbital swelling ENT exam: Present: normal exam, mucous membranes moist Neck exam: Present: normal inspection. Absent: tenderness, meningismus, lymphadenopathy Respiratory exam: Present: normal lung sounds bilaterally. Absent: respiratory distress, wheezes, rales, rhonchi, stridor Cardiovascular Exam: Present: regular rate, normal rhythm, normal heart sounds. Absent: systolic murmur, diastolic murmur, rubs, gallop, clicks GI/Abdominal exam: Present: soft, normal bowel sounds. Absent: distended, tenderness, guarding, rebound, rigid Extremities exam: Present: normal inspection, full ROM, normal capillary refill. Absent: tenderness, pedal edema, joint swelling, calf tenderness Back exam: Present: normal inspection Neurological exam: Present: alert, oriented X3, CN II-XII intact Psychiatric exam: Present: normal affect, normal mood Skin exam: Present: warm, dry, intact, normal color. Absent: rash Course Vital Signs 02/19/22 02/19/22 01:01 01:04 Temperature 98 F 98 F Pulse Rate 102 H Respiratory 16 Rate Blood Pressure 141/101 O2 Sat by Pulse 95 Oximetry - Reevaluation(s) Reevaluation #1: Medical record is reviewed Medical clear for psychiatric evaluation Medical Decision Making - Medical Decision Making 46 male was 38 male seen evaluation psychiatry, patient will be discharged home not currently homicidal or suicidal Disposition Clinical Impression: Anxiety Disposition: HOME SELF-CARE Condition: Good Instructions (If sedation given, give patient instructions): Anxiety (ED) Is patient prescribed a controlled substance at d/c from ED?: No Referrals: Anne Sosa MD [Primary Care Provider] - 1-2 days Time of Disposition: 04:00
== END 2022-02-19 04:22 | disposition home or self-care (01) ==
LOC: EC 00:52
DX: F41.9 Anxiety disorder, unspecified (principal); J44.9 Chronic obstructive pulmonary disease, unspecified; E11.9 Type 2 diabetes mellitus without complications; K21.9 Gastro-esophageal reflux disease without esophagitis; I10 Essential (primary) hypertension; F31.9 Bipolar disorder, unspecified; F17.200 Nicotine dependence, unspecified, uncomplicated; Z91.048 Other nonmedicinal substance allergy status; Z79.84 Long term (current) use of oral hypoglycemic drugs; Z79.899 Other long term (current) drug therapy
CPT/HCPCS: 99284

== ENCOUNTER → 2022-03-22 | Outpatient (CLI) | payer MEDICARE, OTHER ==
--- NOTE | 2022-03-22 14:20 | CT ---
EXAMINATION: CT CHEST, ABDOMEN AND PELVIS WITHOUT IV CONTRAST DATE OF EXAMINATION: 03/22/2022. COMPARISON: CTA chest on 01/20/2022.. INDICATION: Shortness of breath. PROCEDURE: Axial CT of the chest, abdomen and pelvis was performed without contrast. Coronal and sa gittal reformats were performed. CT dose lowering techniques were used, to include: automated exposur e control, adjustment for patient size, and/or use of iterative reconstruction. FINDINGS: CHEST: Mediastinum and Tram: There is no axillary, mediastinal or hilar lymphadenopathy. Pleural and Pericardial spaces: There are no pleural or pericardial effusions. Cardiovascular: There is mild vascular calcification throughout the thoracic aortic arch without evid ence of aneurysmal dilation. There are moderate patchy coronary artery calcifications. Pulmonary Artery: The pulmonary arteries are normal in size. Lung Parenchyma and Airways: The lungs are clear. ABDOMEN: Liver and Biliary system: Normal. Adrenal glands: Normal. Kidneys and ureters: There is a 2.2 cm cyst in the upper pole the left kidney. The kidneys and urete rs otherwise appear unremarkable. Spleen: Normal. Pancreas: Normal. Gallbladder: Normal. Lymph nodes, Peritoneum and mesentery: There is no mesenteric or retroperitoneal lymphadenopathy. Gastrointestinal tract: There are no dilated loops of bowel or free intraperitoneal air. . The appe ndix is not clearly seen with no secondary changes of appendicitis otherwise identified. Aorta/IVC: There is moderate vascular calcification throughout the abdominal aorta without evidence of aneurysmal dilation. IVC normal. Abdominal wall: Normal. PELVIS: Fluid: There is no free fluid in the pelvis. Lymph Nodes: There is no pelvic or inguinal lymphadenopathy.. Urinary bladder: Normal. BONES: There is a posterior spinal fusion between the levels of L4 and L5. No aggressive osseous les ions are otherwise identified. ADDITIONAL SIGNIFICANT FINDINGS: None. IMPRESSION: 1. No acute process seen within the chest, abdomen or pelvis. 2. Incidental and chronic changes otherwise noted above.
== END | disposition home or self-care (01) ==
LOC: RADCTMAIN 11:05
PROVIDERS: ATTEND Family Medicine
DX: R63.4 Abnormal weight loss (principal); Z72.0 Tobacco use
CPT/HCPCS: 71250; 74176

== ENCOUNTER → 2022-07-12 | Outpatient (CLI) | payer MEDICARE, OTHER ==
--- NOTE | 2022-07-12 11:39 | FL ---
INDICATION: Patient age:Male; 46 years old; Reason for study: R13.10 DYSPHAGIA, UNSPECIFIED; PHH. COMPARISON: None TECHNIQUE: Utilizing real-time video recording fluoroscopy, multiple images were obtained after admin istration of various consistencies of barium contrast. A speech pathologist was present throughout the exam. Fluoroscopic time: 51 seconds Fluoroscopic images: No saved images. Total DAP: 54.32 FINDINGS: Consistencies administered: Pudding, nectar thick, and thin barium. During the oral phase there is n ormal formation of food bolus with normal initiation of swallow with all consistencies. Premature spill: With thin and nectar consistencies. Laryngeal penetration: silent laryngeal penetration thin and nectar consistencies. Piriform Retention: With nectar consistency Vallecular retention: With nectar consistency Nasopharyngeal reflux: None identified. Tracheal aspiration: None identified. IMPRESSION: 1. No evidence of tracheal aspiration. 2. Silent laryngeal penetration with thin and nectar consistencies. 3. Vallecular and piriform retention with nectar consistency. 4. Premature spill with thin and nectar consistencies. Please see dedicated speech pathology report for additional information.
== END | disposition home or self-care (01) ==
LOC: RADFLMAIN 10:53
PROVIDERS: ATTEND Psychiatry & Neurology Neurology
DX: R13.10 Dysphagia, unspecified (principal)
CPT/HCPCS: 74230

== ENCOUNTER → 2023-12-10 | Outpatient (CLI) | payer MEDICARE, OTHER ==
[2023-12-10 13:13] LABS: African American GFR (CKD) >90 (>60 ml/min/1.73 sqM); Blood Urea Nitrogen 14 mg/dL (9-20); Non-African American GFR(CKD) >90 (>60 ml/min/1.73 sqM)
--- NOTE | 2023-12-10 14:17 | CT ---
EXAMINATION TYPE: CT ChestAbdPelvis w con CT DLP: 1246 mGycm, Automated exposure control for dose reduction was used. DATE OF EXAM: 12/10/2023 1:59 PM COMPARISON: CT chest abdomen and pelvis 03/22/2022 CLINICAL INDICATION:Male, 48 years old with history of R63.4 ABNORMAL WEIGHT LOSS; PHH, Abnormal weig ht loss Technique: Multiple axial images of the chest, abdomen, and pelvis were obtained following the intrav enous administration of 100 mL Isovue-300. Oral contrast was administered. Two-dimensional coronal an d sagittal reconstructions were obtained. Findings: CHEST: LUNGS/ PLEURA: No pleural effusion, pneumothorax, focal consolidation. Few stable left basilar pulmon rolando nodules the largest measuring up to 5 mm. No new or enlarging pulmonary nodules. AIRWAY: Patent and unremarkable.. HEART: Size within normal limits. No pericardial effusion. MEDIASTINUM: No evidence of adenopathy. VASCULATURE: No aortic aneurysm. MUSCULOSKELETAL: No acute osseous abnormalities. SOFT TISSUES/LYMPH NODES: Unremarkable. LOWER NECK: No significant findings. ABDOMEN: ABDOMEN LIVER: Unremarkable GALLBLADDER AND BILE DUCTS: Unremarkable. PANCREAS: Unremarkable. SPLEEN: Unremarkable. ADRENAL GLANDS: Unremarkable. KIDNEYS AND URETERS: No evidence of hydronephrosis or renal calculus. The is enhancement are clear. L eft upper pole renal 1.3 cm cyst. Contrast is demonstrated within both collecting systems on the breanna yed phase. PELVIS BLADDER: Unremarkable REPRODUCTIVE: Unremarkable. ABDOMEN & PELVIS STOMACH AND BOWEL: Stomach and duodenum are unremarkable. Redundant sigmoid colon. Mild colonic stool burden. No focal bowel wall thickening or surrounding inflammatory changes. The appendix is within n ormal limits. Enteric contrast reaches the mid small bowel. No evidence of bowel obstruction. PERITONEUM: No evidence of pneumoperitoneum or free fluid. VASCULATURE: Mild atherosclerotic calcifications are present throughout the abdominal aorta and its b ranches. No abdominal aortic aneurysm. Left-sided pelvic phlebolith. MUSCULOSKELETAL: No acute osseous abnormalities. Postsurgical changes from posterior fusion of the checo mbar spine with bilateral pedicle screws and rods involving L5-S1. Grade 1 anterolisthesis of L5 on S 1. LYMPH NODES: No gross evidence for lymphadenopathy. SOFT TISSUE/ABDOMINAL WALL: Small fat filled umbilical hernia. IMPRESSION: No acute process within the chest, abdomen or pelvis. No significant change from prior exam. [facility], , 12/10/2023 2:15 PM
== END | disposition home or self-care (01) ==
LOC: RADCTMAIN 11:44 → EEVIPCON 13:45
PROVIDERS: ATTEND Family Medicine
DX: R63.4 Abnormal weight loss
CPT/HCPCS: 36415; 71260; 74177; 82565; 84520

== ENCOUNTER → 2024-02-06 | Outpatient (CLI) | payer MEDICARE, OTHER ==
--- NOTE | 2024-02-06 14:18 | US ---
EXAMINATION TYPE: US scrotum with doppler. DATE OF EXAM: 02/06/2024 COMPARISON: US 2016 CLINICAL INDICATION: Male, 48 years old with history of N50.89 DISORDERS OF THE MALE GENITAL ORGANS; TECHNIQUE: Grayscale, color Doppler and spectral Doppler imaging of the scrotum. FINDINGS: EXAM MEASUREMENTS: TESTICLES: Right Testicle: 4.7 x 2.8 x 2.9 cm Left Testicle: 4.3 x 2.5 x 2.8 cm EPIDIDYMIS HEAD: Right Epididymis: 1.4 cm Left Epididymis: 1.3 cm Doppler performed to assess for testicular vascularity; good bilateral color flow and spectral wavefo indra are seen. There is no evidence of testicular torsion. Presence of hydroceles: right 4.5cm, left 3.4cm Presence of varicoceles: no IMPRESSION: 1. No evidence for acute process. 2. Appropriate arterial and venous waveforms to the testes. [facility], , 02/06/2024 2:16 PM
== END | disposition home or self-care (01) ==
LOC: RADUSWWP 13:09
PROVIDERS: ATTEND Family Medicine
DX: N50.89 Other specified disorders of the male genital organs (principal)
CPT/HCPCS: 76870; 93975

== ENCOUNTER → 2024-04-28 | Outpatient (CLI) | payer MEDICARE, OTHER ==
--- NOTE | 2024-04-28 13:46 | XR ---
EXAMINATION TYPE: XR shoulder complete RT DATE OF EXAM: 04/28/2024 1:09 PM COMPARISON: None. CLINICAL INDICATION: Male, 48 years old with history of G89.29 Other chronic pain M25.511 Pain rt ash blake TECHNIQUE: Three views of the right shoulder are obtained. FINDINGS: There is no acute fracture/dislocation evident in the right shoulder. Moderate narrowing at the acromioclavicular joint. Glenohumeral joint is preserved. The visualized ribs are intact and unremarkable. IMPRESSION: As above. [facility], , 04/28/2024 1:44 PM
--- NOTE | 2024-04-28 13:48 | XR ---
EXAMINATION TYPE: XR cervical spine comp DATE OF EXAM: 04/28/2024 1:09 PM COMPARISON: None. CLINICAL INDICATION: Male, 48 years old with history of G89.29 Other chronic pain M25.511 Pain rt rowena ulsweta, pain TECHNIQUE: Frontal, lateral, oblique, swimmers, and open mouth view of the cervical spine are obtaine d. FINDINGS: The cervical spine is visualized in its entirety from C1 thru the top of T1 level, there i s slight scoliotic curvature centered in the upper to mid thoracic spine. The pre-vertebral soft tis sol appears within normal limits. The dens is within normal limits on the open mouth view. Vertebra l body heights and disc space heights are within normal limits. The oblique images are within normal limits. Overlying soft tissue is unremarkable. IMPRESSION: As above. [facility], , 04/28/2024 1:46 PM
== END | disposition home or self-care (01) ==
LOC: RADXRMAIN 12:34
PROVIDERS: ATTEND Family Medicine
DX: M54.2 Cervicalgia (principal); M41.84 Other forms of scoliosis, thoracic region; M24.811 Other specific joint derangements of right shoulder, not elsewhere classified
CPT/HCPCS: 72050

== ENCOUNTER 2024-08-24 13:38 | Observation (INO) | payer MEDICARE, OTHER ==
--- NOTE | 2024-08-24 14:17 | ED ---
Weakness HPI - General Source: patient, Caregiver Mode of arrival: wheelchair Limitations: physical limitation <Aletha Damon - Last Filed: 08/24/24 14:16> <Haroon Zeng - Last Filed: 08/24/24 18:58> - General Chief complaint: Weakness Stated complaint: Weakness Time Seen by Provider: 08/24/24 14:16 - History of Present Illness Initial comments: Quick note: 48-year-old male presented the ER for evaluation of weakness. Patient reports for the past 2 weeks he has been unable to ambulate as his legs are "weak. Patient states he has been having frequent falls. Denies head injury. No blood thinner use. Patient states he is depressed. Denies SI or HI. Mother reports she is unsure if she is able to care for him at home. (Aletha Damon) Dictation was produced using [employer] dictation software. please excuse any grammatical, word or spelling errors. Chief Complaint: 48-year-old male presents to the ER with [facility] worker for debility History of Present Illness: Patient is a 48-year-old male presents to the emergency department [facility] worker [employer]. Patient works closely with [employer]. Over the last 2 months he has been having worsening weakness including debility. Patient has been suffering frequent falls and worsening weakness. Patient's legs have been significantly weak to the point where he is unable to care for himself or make his appointments. Patient denies any fever, chills or night sweats. He apparently is supposed to have these appointments to evaluate his worsening weakness however he is unable to make his appointments. The ROS documented in this emergency department record has been reviewed and confirmed by me. Those systems with pertinent positive or negative responses have been documented in the HPI. All other systems are other negative and/or noncontributory. (Haroon Zeng) - Related Data Home Medications Medication Instructions Recorded Confirmed Atorvastatin Calcium [Lipitor] 20 mg PO HS 12/31/20 05/03/22 metFORMIN HCL [Glucophage] 1,000 mg PO BID 12/31/20 05/03/22 Cholecalciferol [Vitamin D3 (125 125 mcg PO DAILY 12/28/21 05/03/22 Mcg = 5000 Iu)] Ipratropium-Albuterol Nebulize 3 ml INHALATION RT-QID PRN 12/28/21 05/03/22 [Duoneb 0.5 mg-3 mg/3 ml Soln] Albuterol Sulfate [Ventolin HFA] 1 - 2 puff INHALATION RT-QID PRN 01/20/22 05/03/22 Naltrexone HCl [Revia] 50 mg PO DAILY 01/20/22 05/03/22 Sertraline [Zoloft] 100 mg PO DAILY 01/20/22 05/03/22 fluPHENAZine [Prolixin] 3 mg PO HS 01/20/22 05/03/22 Potassium Chloride ER [K-Dur 10] 1 tab PO DAILY 04/30/22 05/03/22 Thiamine [Vitamin B-1] 100 mg PO DAILY 04/30/22 05/03/22 clonazePAM [KlonoPIN] 1 mg PO TID 04/30/22 05/03/22 Previous Rx's Medication Instructions Recorded Budesonide-Formot 160-4.5 Mcg 2 puff INHALATION RT-BID each 08/03/21 [Symbicort 160-4.5 Mcg Inhaler] Furosemide [Lasix] 40 mg PO DAILY tab 08/03/21 Allergies Allergy/AdvReac Type Severity Reaction Status Date / Time metals Allergy Rash/Hives, Uncoded 08/24/24 14:08 swelling Review of Systems ROS Other: All systems not noted in ROS Statement are negative. <Aletha Damon - Last Filed: 08/24/24 14:16> ROS Other: All systems not noted in ROS Statement are negative. <Haroon Zeng - Last Filed: 08/24/24 18:58> ROS Statement: Those systems with pertinent positive or pertinent negative responses have been documented in the HPI. Past Medical History Past Medical History: Asthma, COPD, Diabetes Mellitus, GERD/Reflux, Hyperlipidemia, Hypertension, Skin Disorder Additional Past Medical History / Comment(s): hx spina bifida, spinal stenosis, pancreatitis. migraines,. Tardive Dyskinesia History of Any Multi-Drug Resistant Organisms: None Reported Past Surgical History: Back Surgery Additional Past Surgical History / Comment(s): back surgery- 3 rods, 4 screws Past Anesthesia/Blood Transfusion Reactions: No Reported Reaction Past Psychological History: ADD/ADHD, Anxiety, Bipolar, Depression Smoking Status: Current every day smoker - Past Family History Mother Family Medical History: Cancer Father Family Medical History: Cancer <Aletha Damon - Last Filed: 08/24/24 14:16> General Exam Limitations: physical limitation <Aletha Damon - Last Filed: 08/24/24 14:16> <Haroon Zeng - Last Filed: 08/24/24 18:58> - General Exam Comments Initial Comments: Visual Physical Exam Vital signs reviewed General: Well-appearing, nontoxic, no acute distress. Head: Normocephalic, atraumatic Eyes: PERRLA, EOMI ENT: Airway patent Chest: Nonlabored breathing Skin: No visual rash, normal skin tone Neuro: Alert Musculoskeletal: No gross abnormalities (Aletha Damon) PHYSICAL EXAM: General Impression: Alert and oriented x3, not in acute distress, tardive dyskinesia HEENT: Normocephalic atraumatic, extra-ocular movements intact, pupils equal and reactive to light bilaterally, mucous membranes moist. Cardiovascular: Heart regular rate and rhythm Chest: Able to complete full sentences, no retractions, no tachypnea Abdomen: abdomen soft, non-tender, non-distended, no organomegaly Musculoskeletal: Pulses present and equal in all extremities, no peripheral edema Motor: no focal deficits noted Neurological: CN II-XII grossly intact, no focal motor or sensory deficits noted Skin: Intact with no visualized rashes Psych: Normal affect and mood (Haroon Zeng) Course Vital Signs 08/24/24 08/24/24 14:08 18:18 Temperature 98.1 F 97.7 F Pulse Rate 75 55 L Respiratory 18 18 Rate Blood Pressure 111/77 144/89 O2 Sat by Pulse 95 94 L Oximetry Medical Decision Making <Aletha Damon - Last Filed: 08/24/24 14:16> - Lab Data Result diagrams: 08/24/24 16:30 08/24/24 16:30 <Haroon Zeng - Last Filed: 08/24/24 18:58> - Medical Decision Making I performed the quick note portion of this chart. Electronically signed by Aletha Damon PA-C (Aletha Damon) Was pt. sent in by a medical professional or institution ([facility], RADAR SCIENTIST, urgent care, hospital, or [facility]...) When possible be specific @ -No Did you speak to anyone other than the patient for history (EMS, parent, family, police, friend...)? What history was obtained from this source @ -See above Did you review nursing and triage notes (agree or disagree)? Why? @ -I reviewed and agree with nursing and triage notes Were old charts reviewed (outside hosp., previous admission, EMS record, old E KG, old radiological studies, urgent care reports/EKG's, [facility] records)? Report findings @ -No old charts were reviewed Differential Diagnosis (chest pain, altered mental status, abdominal pain women, abdominal pain men, vaginal bleeding, musculoskeletal, weakness, fever, dyspnea, syncope, headache, dizziness, GI bleed, back pain, seizure, CVA, palpatations, mental health)? @ -Differential Weakness: Hypoglycemia, shock, sepsis, hyponatremia, anemia, infection, TX, ETOH, adverse medicine reaction, overdose, stroke, this is not meant to be an all-inclusive list. EKG interpreted by me (3pts min.). @ -None done X-rays interpreted by me (1pt min.). @ -None done CT interpreted by me (1pt min.). @ -None done U/S interpreted by me (1pt. min.). @ -None done What testing was considered but not performed or refused? (CT, X-rays, U/S, labs)? Why? @ -None What meds were considered but not given or refused? Why? @ -None Was smoking cessation discussed for >3mins.? @ -No Were there social determinants of health that impacted care today? How? (Homelessness, low income, unemployed, alcoholism, drug addiction, transportation, low edu. Level, literacy, decrease access to med. care, fdc, rehab)? @ -Psychiatric illness, tardive dyskinesia, spina bifida Was there de-escalation of care discussed even if they declined (Discuss DNR or withdrawal of care, Hospice)? DNR status @ -No What co-morbidities impacted this encounter? (DM, HTN, Smoking, COPD, CAD, Cancer, CVA, ARF, Chemo, Hep., AIDS, mental health diagnosis, sleep apnea, morbid obesity)? @ -None Was patient admitted / discharged? Hospital course, mention meds given and route, prescriptions, significant lab abnormalities, going to OR and other pertinent info. @ -48-year-old male brought in by [facility] worker for worsening debility ongoing for the last 2 months to the point he is unable to care for himself. He does not have any social support. Vital signs stable. Patient well-appearing with no acute complaints. Lab testing is unremarkable. Patient will be admitted for debility consult to neurology and psych social worker. Did you discuss the management of the patient with other professionals (professionals i.e. , PA, RADAR SCIENTIST, lab, RT, psych nurse, psych social worker, head insulation board saw operator, teacher, agricultural technical officer, machine adjuster leader case trim)? Give summary @ -No Was critical care preformed (if so, how long)? @ -No Undiagnosed new problem with uncertain prognosis? @ -No Drug Therapy requiring intensive monitoring for toxicity (Heparin, Nitro, Insulin, Cardizem)? @ -No Were any procedures done? @ -No Diagnosis/symptom? Acute, or Chronic, or Acute on Chronic? Uncomplicated (without systemic symptoms) or Complicated (systemic symptoms)? @ -Gravely disabled Side effects of treatment? @ -No Exacerbation, Progression, or Severe Exacerbation? @ -No Poses a threat to life or bodily function? How? (Chest pain, USA, TX, pneumonia, PE, COPD, DKA, ARF, appy, cholecystitis, CVA, Diverticulitis, Homicidal, Suicidal, threat to staff... and all critical care pts) @ -yes (Haroon Zeng) - Lab Data Lab Results 08/24/24 08/24/24 08/24/24 Range/Units 16:30 16:30 16:30 WBC 9.03 (4.50-10.00) 10*3/uL RBC 5.15 (4.40-5.60) 10*6/uL Hgb 15.9 (13.0-17.0) g/dL Hct 46.6 (39.6-50.0) % MCV 90.5 (80.0-97.0) fL MCH 30.9 (27.0-32.0) pg MCHC 34.1 (32.0-37.0) g/dL Plt Count 247 (140-440) 10*3/uL MPV 9.5 (9.5-12.2) fL Immature Gran % (Auto) 0.2 % Neutrophils % 66.3 % Lymphocytes % 23.9 % Monocytes % 6.2 % Eosinophils % 2.7 % Basophils % 0.7 % Immature Gran # 0.02 (0.00-0.04) 10*3/uL Neutrophils # 5.99 (1.80-7.70) 10*3/uL Lymphocytes # 2.16 (0.90-5.00) 10*3/uL Monocytes # 0.56 (0.20-1.00) 10*3/uL Eosinophils # 0.24 (0.04-0.35) 10*3/uL Basophils # 0.06 (0.00-0.10) 10*3/uL PT 11.4 (10.0-12.5) sec INR 1.0 (<1.2) APTT 26.4 (22.0-30.0) sec Sodium 139 (137-145) mmol/L Potassium 4.7 (3.5-5.1) mmol/L Chloride 100 (98-107) mmol/L Carbon Dioxide 31 H (22-30) mmol/L Anion Gap 8 mmol/L BUN 12 (9-20) mg/dL Creatinine 0.51 L (0.66-1.25) mg/dL Est GFR (CKD-EPI)AfAm >90 (>60 ml/min/1.73 sqM) Est GFR (CKD-EPI)NonAf >90 (>60 ml/min/1.73 sqM) Glucose 116 H (74-99) mg/dL Plasma Lactic Acid Ashwin (0.7-2.0) mmol/L Calcium 9.7 (8.4-10.2) mg/dL Magnesium 2.0 (1.6-2.3) mg/dL Total Bilirubin 0.8 (0.2-1.3) mg/dL AST 26 (17-59) U/L ALT 10 (4-49) U/L Alkaline Phosphatase 112 (38-126) U/L Troponin I (0.000-0.034) ng/mL Total Protein 7.4 (6.3-8.2) g/dL Albumin 4.4 (3.5-5.0) g/dL 08/24/24 08/24/24 Range/Units 16:30 16:30 WBC (4.50-10.00) 10*3/uL RBC (4.40-5.60) 10*6/uL Hgb (13.0-17.0) g/dL Hct (39.6-50.0) % MCV (80.0-97.0) fL MCH (27.0-32.0) pg MCHC (32.0-37.0) g/dL Plt Count (140-440) 10*3/uL MPV (9.5-12.2) fL Immature Gran % (Auto) % Neutrophils % % Lymphocytes % % Monocytes % % Eosinophils % % Basophils % % Immature Gran # (0.00-0.04) 10*3/uL Neutrophils # (1.80-7.70) 10*3/uL Lymphocytes # (0.90-5.00) 10*3/uL Monocytes # (0.20-1.00) 10*3/uL Eosinophils # (0.04-0.35) 10*3/uL Basophils # (0.00-0.10) 10*3/uL PT (10.0-12.5) sec INR (<1.2) APTT (22.0-30.0) sec Sodium (137-145) mmol/L Potassium (3.5-5.1) mmol/L Chloride (98-107) mmol/L Carbon Dioxide (22-30) mmol/L Anion Gap mmol/L BUN (9-20) mg/dL Creatinine (0.66-1.25) mg/dL Est GFR (CKD-EPI)AfAm (>60 ml/min/1.73 sqM) Est GFR (CKD-EPI)NonAf (>60 ml/min/1.73 sqM) Glucose (74-99) mg/dL Plasma Lactic Acid Ashwin 0.8 (0.7-2.0) mmol/L Calcium (8.4-10.2) mg/dL Magnesium (1.6-2.3) mg/dL Total Bilirubin (0.2-1.3) mg/dL AST (17-59) U/L ALT (4-49) U/L Alkaline Phosphatase (38-126) U/L Troponin I <0.012 (0.000-0.034) ng/mL Total Protein (6.3-8.2) g/dL Albumin (3.5-5.0) g/dL Disposition <Aletha Damon - Last Filed: 08/24/24 14:16> Decision Time: 18:58 <Haroon Zeng - Last Filed: 08/24/24 18:58> Clinical Impression: Gravely disabled Disposition: ADMITTED IP TO THIS HOSP Condition: Fair Referrals: Anne Sosa MD [Primary Care Provider] - 1-2 days
--- NOTE | 2024-08-24 16:17 | XR ---
EXAMINATION TYPE: XR chest 2V DATE OF EXAM: 08/24/2024 4:09 PM COMPARISON: 07/29/2024 CLINICAL INDICATION: Male, 48 years old with history of Weakness, TECHNIQUE: XR chest 2V view(s) obtained. FINDINGS: The heart size is normal. The pulmonary vasculature is normal. The lungs are clear. IMPRESSION: 1. No acute pulmonary process. [facility], , 08/24/2024 4:15 PM
[2024-08-24 16:43] LABS: Basophils # (A) 0.06 10*3/uL (0.00-0.10); Basophils % (A) 0.7 %; Eosinophils # (A) 0.24 10*3/uL (0.04-0.35); Eosinophils % (A) 2.7 %; HCT 46.6 % (39.6-50.0); HGB 15.9 g/dL (13.0-17.0); Lymphocytes # (A) 2.16 10*3/uL (0.90-5.00); Lymphocytes % (A) 23.9 %; MCH 30.9 pg (27.0-32.0); MCHC 34.1 g/dL (32.0-37.0); MCV 90.5 fL (80.0-97.0); Mean Platelet Volume 9.5 fL (9.5-12.2); Monocytes # (A) 0.56 10*3/uL (0.20-1.00); Monocytes % (A) 6.2 %; Neutrophils # (A) 5.99 10*3/uL (1.80-7.70); Neutrophils % (A) 66.3 %; Platelet Count 247 10*3/uL (140-440); RBC 5.15 10*6/uL (4.40-5.60); RDW 13.2 % (11.5-14.5); WBC 9.03 10*3/uL (4.50-10.00)
[2024-08-24 16:54] LABS: ALT 10 U/L (4-49); African American GFR (CKD) >90 (>60 ml/min/1.73 sqM); Anion Gap 8 mmol/L; Blood Urea Nitrogen 12 mg/dL (9-20); Calcium 9.7 mg/dL (8.4-10.2); Carbon Dioxide 31 mmol/L (22-30); Chloride 100 mmol/L (98-107); Glucose 116 mg/dL (74-99); Non-African American GFR(CKD) >90 (>60 ml/min/1.73 sqM); Sodium 139 mmol/L (137-145); Total Bilirubin 0.8 mg/dL (0.2-1.3)
[2024-08-24 17:05] LABS: Partial Thromboplastin Time 26.4 sec (22.0-30.0); Prothrombin Time 11.4 sec (10.0-12.5)
[2024-08-24 17:07] LABS: Albumin 4.4 g/dL (3.5-5.0); Potassium 4.7 mmol/L (3.5-5.1); Total Protein 7.4 g/dL (6.3-8.2)
[2024-08-24 17:08] LABS: AST 26 U/L (17-59); Alkaline Phosphatase 112 U/L (38-126)
[2024-08-24] MEDS ORDERED: NALOXONE 0.4 MG/ML 1 ML VIAL IV PRN (18:51)
[2024-08-25] MEDS ORDERED: IPRATROPIUM-ALBUTEROL 3 ML NEB INHALATION PRN ×2 (12:12)
[2024-08-25] MEDS ORDERED: ALBUTEROL NEBULIZED 2.5 MG/3 ML INHALATION PRN (12:12)
--- NOTE | 2024-08-25 12:24 | P.HPIM ---
History of Present Illness 48-year-old male came with complaints of generalized weakness patient does not have any focal weakness focal tingling or numbness except for 1 and half fingers on the lateral side of the right hand which is secondary to carpal tunnel s yndrome. Patient lives with his 80-year-old mother who cannot take care of him patient has psychiatric history of multiple antipsychotic medications and antidepressants and clonazepam along with valbenazine for tardive dyskinesia. Patient any fever chills nausea vomiting abdominal pain dysuria. Chest x-ray is within normal limits REVIEW OF SYSTEMS: All other systems are negative except those mentioned in the HPI PHYSICAL EXAMINATION: GENERAL: The patient is alert and oriented x3, not in any acute distress. Well developed, well nourished. Signs consistent with tardive dyskinesia HEENT: Pupils are round and equally reacting to light. EOMI. No scleral icterus. No conjunctival pallor. Normocephalic, atraumatic. No pharyngeal erythema. No thyromegaly. CARDIOVASCULAR: S1 and S2 present. No murmurs, rubs, or gallops. PULMONARY: Chest is clear to auscultation, no wheezing or crackles. ABDOMEN: Soft, nontender, nondistended, normoactive bowel sounds. No palpable organomegaly. MUSCULOSKELETAL: No joint swelling or deformity. EXTREMITIES: No cyanosis, clubbing, or pedal edema. NEUROLOGICAL: Gross neurological examination did not reveal any focal deficits. SKIN: No rashes. Assessment and plan -Generalized weakness: Secondary to side effect from antipsychotic medications, tardive dyskinesia physical therapy Occupational Therapy evaluation. Social work consultation for placement - Mild carpal tunnel syndrome supportive care - COPD without any acute exacerbation - Gastroesophageal flux disease - Hyperlipidemia - Hypertension - Bipolar disorder - Tardive dyskinesia: Will consult psychiatry for titration of his antipsychotic medications - Nicotine use: Counseling was provided DVT prophylaxis: Lovenox Past Medical History Past Medical History: Asthma, COPD, Diabetes Mellitus, GERD/Reflux, Hyperlipidemia, Hypertension, Skin Disorder Additional Past Medical History / Comment(s): hx spina bifida, spinal stenosis, pancreatitis. migraines,. Tardive Dyskinesia History of Any Multi-Drug Resistant Organisms: None Reported Past Surgical History: Back Surgery Additional Past Surgical History / Comment(s): back surgery- 3 rods, 4 screws Past Anesthesia/Blood Transfusion Reactions: No Reported Reaction Past Psychological History: ADD/ADHD, Anxiety, Bipolar, Depression Smoking Status: Current every day smoker - Past Family History Mother Family Medical History: Cancer Father Family Medical History: Cancer Medications and Allergies Home Medications Medication Instructions Recorded Confirmed Type Budesonide-Formot 160-4.5 Mcg 2 puff INHALATION RT-BID each 08/03/21 08/24/24 Rx [Symbicort 160-4.5 Mcg Inhaler] Ipratropium-Albuterol Nebulize 3 ml INHALATION RT-QID PRN 12/28/21 08/24/24 History [Duoneb 0.5 mg-3 mg/3 ml Soln] Albuterol Sulfate [Ventolin HFA] 2 puff INHALATION RT-QID PRN 01/20/22 08/24/24 History Naltrexone HCl [Revia] 50 mg PO DAILY 01/20/22 08/24/24 History clonazePAM [KlonoPIN] 1 mg PO BID@1200,1700 04/30/22 08/24/24 History ARIPiprazole [Abilify] 5 mg PO DAILY 08/24/24 08/24/24 History Ipratropium-Albuterol Nebulize 3 ml INHALATION RT-Q2H PRN 08/24/24 08/24/24 History [Duoneb 0.5 mg-3 mg/3 ml Soln] Omeprazole 20 mg PO DAILY 08/24/24 08/24/24 History Sertraline [Zoloft] 150 mg PO DAILY 08/24/24 08/24/24 History Valbenazine Tosylate [Ingrezza] 80 mg PO DAILY 08/24/24 08/24/24 History clonazePAM 2 mg PO BID@0600,2100 08/24/24 08/24/24 History Allergies Allergy/AdvReac Type Severity Reaction Status Date / Time metals Allergy Rash/Hives, Uncoded 08/24/24 19:12 swelling Physical Exam Vitals: Vital Signs Temp Pulse Pulse Resp BP BP Pulse Ox 08/25/24 10:00 98 F 65 16 149/61 95 08/25/24 08:00 68 16 120/68 98 08/25/24 02:00 97.3 F L 71 14 110/78 96 08/24/24 21:16 68 16 121/83 08/24/24 18:18 97.7 F 55 L 18 144/89 94 L 08/24/24 14:08 98.1 F 75 18 111/77 95 Intake and Output 08/24/24 08/25/24 08/25/24 22:59 06:59 14:59 Other: Voiding Method Urinal Results CBC & Chem 7: 08/24/24 16:30 08/24/24 16:30 Labs: Abnormal Lab Results - Last 24 Hours (Table) 08/24/24 Range/Units 16:30 Carbon Dioxide 31 H (22-30) mmol/L Creatinine 0.51 L (0.66-1.25) mg/dL Glucose 116 H (74-99) mg/dL
[2024-08-25] MEDS: clonazePAM 1 MG TAB PO PRN (12:38)
--- NOTE | 2024-08-25 13:46 | P.CN ---
Psychiatric Consult - . Consult date: 08/25/24 Consult:: 08/25/24 13:34 IDENTIFYING DATA: This patient is a 48-year-old male, on disability and living with mother REASON FOR REFERRAL: Psychiatry was consulted for medication titration, TD HISTORY OF PRESENT ILLNESS: The patient presented to the hospital with weakness. Patient reportedly has been having weakness for the past 2 weeks with increasing falls. Patient is living with his mother and she is unsure if she is able to care for him at home. Patient seen and evaluated in his bed. Nurse mentioned that patient was attempting to leave AMA. This was discussed in detail to which patient states that he wants to go home because he feels as though we are unable to do anything for him while he is here. He was unable to state any possible benefits with staying versus any risks with leaving. Patient's weakness with falls was discussed to which he states is not a risk as he has a history of spinal stenosis and has weakness anyway from this. Patient was unable to elicit any appropriate responses for his decisions to stay versus leave. He was A&Ox3 however unable to state the date. He was unable to recall all of his current psychotropic medications other than Klonopin and Ingrezza. He states his mother helps him out with his medications and that [facility] also provides his medications in a bubble pack a few times a week. He states seeing his outpatient psychiatrist monthly. He feels as though the weakness began when he started Ingrezza roughly 1 month ago. Resistance Brazer expressed concerns with the high dose of Klonopin as patient states he has been taking 2 mg in the morning, 1 mg at lunch, 1 mg at dinner, 2 mg at bedtime. Psychoeducation provided on this being the culprit to his increase in weakness and falls however patient did not seem receptive to this thought. At this time patient denies any suicidal or homicidal ideations, intent or plan. Patient denies any auditory, visual hallucinations and denies any paranoia or delusions. Patients admits to using nicotine daily. PAST PSYCHIATRIC HISTORY: Patient has a history of tar dive dyskinesia, bipolar disorder. He is currently prescribed Zoloft 150 mg daily, Abilify 5 mg daily, naltrexone 50 mg daily, Klonopin 2 mg twice daily AM at bedtime and 1 mg twice daily with lunch and dinner. Maps did reveal a consistent filling of this prescription, patient last filled Klonopin 2 mg quantity 28, Klonopin 1 mg quantity 28 on 08/[address] Lu. Patient reports several previous inpatient hospitalizations, last being on the [facility] on 07/2021. He sees Dr. Lu with [facility]. Patient denies any history of suicide attempts in the past. PAST MEDICAL HISTORY: Asthma, COPD, diabetes, dyslipidemia, hypertension, spina bifida, spinal stenosis. ALLERGIES: as per EMR. CHEMICAL DEPENDENCY HISTORY: as per HPI. FAMILY PSYCHIATRIC/SUBSTANCE USE HISTORY: Patient states his father abused alcohol and that his mother has depression SOCIAL HISTORY: Patient is single and has no children. He completed school up to the 12th grade, is on SSD and currently living with his mother. MENTAL STATUS EXAM: General Appearance: Patient appears to be stated age is alert, pleasant, and cooperative. Patient appears to have poor hygiene and grooming wearing hospital gown with fair eye contact. Behavior: Patient appeared restless, abnormal movements demonstrated in the tongue as well as limbs Speech: Patient's speech is fluent and nonpressured. Mood/Affect: Patient reports their mood is "anxious", affect is congruent Suicidality/Homicidality: Patient denies having any suicidal or homicidal ideation intent or plan. Perceptions: Patient denies any visual hallucinations and denies any auditory hallucinations Though content/process: There is no evidence of any delusional thought content and thought process is linear and goal-directed. Memory and concentration: AOX3, grossly intact for the purposes of this session. Can spell "WORLD" backwards Judgment and insight: Poor IMPRESSIONS: History of bipolar disorder Tardive dyskinesia Anxiety, unspecified PLAN: -At this time patient DOES NOT meet criteria for inpatient psychiatric admission. -Patient DOES NOT have decision making capacity at this time and is unable to reason through and communicate/appreciate the risks, benefits and alternatives to treatment. -Would recommend the following medication changes/additions: Continue Klonopin 1 mg twice daily, had a lengthy discussion with patient regarding the risks with long-term benzodiazepine use and the goal of titrating this down given his current symptoms as patient was previously on a total of 6 mg. Continue Ingrezza 80 mg daily for TD, Zoloft 150 mg daily for anxiety, Abilify 5 mg daily for bipolar disorder. Will order EKG -Communicated plan to patient's nurse -Will continue to follow along prn -Please contact with any questions.
[2024-08-25] MEDS: SYMBICORT 160-4.5 MCG INHALER INHALATION SCH (19:03)
[2024-08-25] MEDS: NICOTINE 14MG/24HR PATCH TRANSDERM SCH (21:13)
[2024-08-26 02:15] VITALS: RESP 18
[2024-08-26] MEDS: SERTRALINE 100 MG TAB PO SCH (08:15)
[2024-08-26] MEDS: PANTOPRAZOLE 40 MG TABLET PO SCH (08:15)
[2024-08-26] MEDS: ARIPiprazole 5 MG TAB PO SCH (08:15)
[2024-08-26] MEDS: NALTREXONE HCL 50 MG TAB PO SCH (08:15)
[2024-08-26] MEDS: VALBENAZINE TOSYLATE 80 MG PO SCH (12:01)
[2024-08-26 12:28] VITALS: BP 155/67; PULSE 73; TEMP 97.6
--- NOTE | 2024-08-26 13:40 | P.DS ---
Providers Date of admission: 08/24/24 18:52 Attending physician: Jr Fuller Consults: 08/25/24 12:14 Consult Physician Routine Consulting Provider: Rachelle Estrada Consult Reason/Comments: Medication titration, tardive dyskinesia Do you want consulting provider notified?: Yes Primary care physician: [facility] Course: 48-year-old male came with complaints of generalized weakness patient does not have any focal weakness focal tingling or numbness except for 1 and half fingers on the lateral side of the right hand which is secondary to carpal tunnel syndrome. Patient lives with his 80-year-old mother who cannot take care of him patient has psychiatric history of multiple antipsychotic medications and antidepressants and clonazepam along with valbenazine for tardive dyskinesia. Patient any fever chills nausea vomiting abdominal pain dysuria. Chest x-ray is within normal limits 08/26/2024 Patient is at his baseline. Physical therapy recommended subacute rehab but although patient is declining to go to rehab patient will be discharged home with home care. \. Patient was evaluated by psychiatry as well PHYSICAL EXAMINATION: GENERAL: The patient is alert and oriented x3, not in any acute distress. Well developed, well nourished. Signs consistent with tardive dyskinesia HEENT: Pupils are round and equally reacting to light. EOMI. No scleral icterus. No conjunctival pallor. Normocephalic, atraumatic. No pharyngeal erythema. No thyromegaly. CARDIOVASCULAR: S1 and S2 present. No murmurs, rubs, or gallops. PULMONARY: Chest is clear to auscultation, no wheezing or crackles. ABDOMEN: Soft, nontender, nondistended, normoactive bowel sounds. No palpable organomegaly. MUSCULOSKELETAL: No joint swelling or deformity. EXTREMITIES: No cyanosis, clubbing, or pedal edema. NEUROLOGICAL: Gross neurological examination did not reveal any focal deficits. SKIN: No rashes. Assessment and plan -Generalized weakness: Secondary to side effect from antipsychotic medications, tardive dyskinesia - Mild carpal tunnel syndrome supportive care - COPD without any acute exacerbation - Gastroesophageal flux disease - Hyperlipidemia - Hypertension - Bipolar disorder - Tardive dyskinesia: Will consult psychiatry for titration of his antipsychotic medications - Nicotine use: Counseling was provided Patient Condition at Discharge: Fair Plan - Discharge Summary Discharge Rx Participant: No New Discharge Prescriptions: Continue Budesonide-Formot 160-4.5 Mcg [Symbicort 160-4.5 Mcg Inhaler] 2 puff INHALATION RT-BID each Ipratropium-Albuterol Nebulize [Duoneb 0.5 mg-3 mg/3 ml Soln] 3 ml INHALATION RT-QID PRN PRN Reason: Shortness Of Breath Ipratropium-Albuterol Nebulize [Duoneb 0.5 mg-3 mg/3 ml Soln] 3 ml INHALATION RT-Q2H PRN PRN Reason: Shortness Of Breath Omeprazole 20 mg PO DAILY Valbenazine Tosylate [Ingrezza] 80 mg PO DAILY Naltrexone HCl [Revia] 50 mg PO DAILY Albuterol Sulfate [Ventolin HFA] 2 puff INHALATION RT-QID PRN PRN Reason: Shortness Of Breath clonazePAM [KlonoPIN] 1 mg PO BID@1200,1700 Sertraline [Zoloft] 150 mg PO DAILY ARIPiprazole [Abilify] 5 mg PO DAILY Discontinued clonazePAM 2 mg PO BID@0600,2100 Discharge Medication List Budesonide-Formot 160-4.5 Mcg [Symbicort 160-4.5 Mcg Inhaler] 2 puff INHALATION RT-BID each 08/03/21 [Rx] Ipratropium-Albuterol Nebulize [Duoneb 0.5 mg-3 mg/3 ml Soln] 3 ml INHALATION RT-QID PRN 12/28/21 [History] Albuterol Sulfate [Ventolin HFA] 2 puff INHALATION RT-QID PRN 01/20/22 [History] Naltrexone HCl [Revia] 50 mg PO DAILY 01/20/22 [History] clonazePAM [KlonoPIN] 1 mg PO BID@1200,1700 04/30/22 [History] ARIPiprazole [Abilify] 5 mg PO DAILY 08/24/24 [History] Ipratropium-Albuterol Nebulize [Duoneb 0.5 mg-3 mg/3 ml Soln] 3 ml INHALATION RT-Q2H PRN 08/24/24 [History] Omeprazole 20 mg PO DAILY 08/24/24 [History] Sertraline [Zoloft] 150 mg PO DAILY 08/24/24 [History] Valbenazine Tosylate [Ingrezza] 80 mg PO DAILY 08/24/24 [History] Follow up Appointment(s)/Referral(s): [facility], [NON-STAFF] - Anne Sosa MD [Primary Care Provider] - 3 Days (please call to schedule an appt. (ext [phone])) Discharge/Stand Alone Forms: Who Do I Call? Discharge Disposition: HOME WITH HOME HEALTH SERVICES
== END 2024-08-26 14:50 | disposition home health service (06) ==
LOC: EC 13:38 → 5NMEDONC 18:52 → UNDODISOB 08-26 14:05
PROVIDERS: ADMIT Hospitalist; ATTEND Hospitalist
DX: G24.01 Drug induced subacute dyskinesia (principal); G56.00 Carpal tunnel syndrome, unspecified upper limb; J44.9 Chronic obstructive pulmonary disease, unspecified; E78.5 Hyperlipidemia, unspecified; I10 Essential (primary) hypertension; F31.9 Bipolar disorder, unspecified; E11.9 Type 2 diabetes mellitus without complications; F17.200 Nicotine dependence, unspecified, uncomplicated; F41.9 Anxiety disorder, unspecified; F90.9 Attention-deficit hyperactivity disorder, unspecified type; R29.6 Repeated falls; Z79.51 Long term (current) use of inhaled steroids; Z79.84 Long term (current) use of oral hypoglycemic drugs; Z79.899 Other long term (current) drug therapy
CPT/HCPCS: 99285; 36415; 94640 ×2; 93005 ×2; 97162; 80053; 83605; 83735; 84484; 85025; 85610; 85730; 71046; G0378 ×3; S4990